=== PATIENT | male | born 1955 | race Caucasian/White ===

== ENCOUNTER 2017-03-17 17:36 | Emergency (ER) | payer OTHER ==
[~2017-03-17] VITALS: Ht 162.6 cm; Wt 68.5 kg
[~2017-03-17 17:36] MED LIST: FERR325T51 PO; FLUT50SP14 NAE; LORA10TA57 PO; NXM/40 PO; POLY335019 PO; SALI0.6510 NAE
[2017-03-17 17:44] VITALS: TEMP 37; Ht 162.6 cm; Wt 68.5 kg
--- NOTE | 2017-03-17 18:13 | EMERGENCY ROOM VISIT NOTE ---
History Report prepared by Seun: Terri Lebron Under the Supervision of: Dr. Charles Bryan M.D. First contact with patient: 17:57 Chief Complaint: LACERATION/CUT (SUT/DERMABOND) Stated Complaint: FALL/ HEAD BRUISE, LF FOOT LAC History of Present Illness The patient is a 61 year old male who presents to the Emergency Room with complaints of an episode of a fall beginning just PATIENT SERVICES COORDINATOR. The patient states that he has a history of Spina bifida and has no sensation below his knees. He reports that he tripped over a step today and landed on the back of his head. He notes that he lost consciousness for 1-2 seconds after the fall. The patient complains of a headache and left foot laceration from the fall. He denies any changes in vision, neck pain, chest pain, shortness of breath, and abdominal pain. He reports that he is not on any blood thinners. He notes that he has a history of broken bones in his legs. Source of History: patient Onset: just PATIENT SERVICES COORDINATOR Position: other (global) Quality: other (fall) Timing: other (episode) Associated Symptoms: + LOC, + headache, No neck pain, No chest pain, No SOB , No abdominal pain Note: Pt complains of left foot laceration. He denies any changes in vision. Review of Systems See HPI for pertinent positives & negatives. A total of 10 systems reviewed and were otherwise negative. Past Medical & Surgical Medical Problems: (1) ENCOUNT FOR LONG-TERM(CURRENT) USE OF ANTIBIOTICS(AFTERCARE) (2) ESOPHAGEAL REFLUX (3) HYPERTENSION NOS (4) INTESTINAL INFECTION DUE TO CLOSTRIDIUM DIFFICILE (5) MENIERE'S DISEASE, UNSPECIFIED (6) NEUROGENIC BLADDER, NOT OTHERWISE SPECIFIED (7) OSTEOMYELIT NOS-OTH SITE (8) PARAPLEGIA NOS (9) PERSONAL HISTORY, URINARY (TRACT) INFECTION (10) PRESSURE ULCER, BUTTOCK (11) SHORTNESS OF BREATH (12) SPINA BIFIDA-LUMBAR Old medical records were reviewed. Nurse's notes were reviewed and I agree with. Family History No pertinent family history stated. Social History Smoking Status: Former Smoker Marital Status: single Occupation Status: disabled Current/Historical Medications Scheduled Esomeprazole Magnesium (Nexium), 40 MG PO HS Ferrous Sulfate (Ferrous Sulfate), 325 MG PO HS Scheduled PRN Fluticasone Propionate (Nasal) (Flonase Allergy Relief), 1 SPRAY SPENCER DAILY PRN for ALLERGIC REACTION Loratadine & Pseudoephedrine (Claritin-D 24 Hour), 1 TAB PO QAM PRN for ALLERGIES Polyethylene Glycol 3350 (Miralax), 17 GM PO DAILY PRN for Constipation Saline ([place] Nasal [place]), 2 SPRAYS SPENCER DAILY PRN for ALLERGIES Allergies Coded Allergies: Adhesives (Verified Allergy, Unknown, ADHESIVE TAPERIPS SKIN APART, 03/17/17 ) Clindamycin (Verified Allergy, Unknown, RASH, 03/17/17) Iodine (Verified Allergy, Unknown, A TEEN-SKIN CONTACT BURNED THE SKIN- FELT LIKE ON FIRE, 03/17/17) Penicillins (Verified Allergy, Unknown, HIVES-ITCHING,HAS TOLERATED ANCEF IN PAST, 03/17/17) Pineapple (Verified Allergy, Unknown, "TONGUE WALKER AND CRACKS", 03/17/17) Aspirin (Verified Adverse Reaction, Unknown, GI SENSITIVITY, 03/17/17) Iodinated Contrast Media (Verified Adverse Reaction, Unknown, NAUSEA, ) Physical Exam Vital Signs Date Time Temp Pulse Resp B/P (MAP) Pulse Ox O2 Delivery O2 Flow Rate FiO2 03/17/17 21:45 76 20 117/75 97 03/17/17 21:33 76 20 117/75 97 Room Air 03/17/17 19:41 85 18 112/91 97 Room Air 03/17/17 17:44 37.0 84 20 129/81 99 Room Air Physical Exam General: Well developed well nourished non-ill appearing older male in no acute distress, breathing comfortably on room air. Normal speech. Patient has baseline spina bifida HEENT: Minimal tenderness to posterior scalp with no laceration. Pupils are equal round and reactive to light. Extraocular movements are intact. Oropharynx is pink with moist mucous membranes. No swelling of the mouth lips or tongue. Neck: Supple with a midline trachea. No meningeal signs or stiffness, no JVD or bruits. No Stridor. Chest: Clear to auscultation bilaterally. No wheezes or rhonchi. No increased work of breathing. Heart: regular rate and rhythm. Abdomen: Soft nontender, nondistended without rebound guarding or rigidity. Extremities: Lower extremities baseline paraplegia, 6cm laceration on the left medial foot, no active bleeding, full range of motion of joints in lower extremities. Spine/Back. Non tender to palpation. No CVA tenderness Skin: Good turgor without rashes. Neurologic exam: Cranial nerves two through 12 are intact. Motor and sensation are intact and symmetrical throughout. Medical Decision & Procedures ER Provider Diagnostic Interpretation: Radiology results as stated below per my review and radiologist interpretation: LEFT TIBIA AND FIBULA 2 VIEWS FINDINGS: AP and crosstable lateral views of the left tibia and fibula are obtained. No prior studies are available for comparison at the time of dictation. The Skeletal structures are osteopenic. There is no radiographic evidence of left tibial or fibular fracture. The knee and ankle joints are grossly maintained. There is chronic appearing discontinuity of the distal femur. A soft tissue bulge is noted in the lateral upper calf. IMPRESSION: 1. Generalized osteopenia with no radiographic evidence of left tibial or fibular fracture. 2. There is chronic discontinuity of the distal femoral metaphysis. 3. A soft tissue bulge is noted laterally in the upper calf. Clinical correlation will be required. Electronically signed by: Terrance Dugan M.D. 03/17/2017 7:45 PM Dictated Date/Time: 03/17/2017 7:[address] SCAN OF THE BRAIN WITHOUT IV CONTRAST FINDINGS: Brain parenchyma: There are age-related involutional changes noting minimal subcortical and periventricular microangiopathic change. There is central resident peripheral volume loss. There is no hemorrhage, mass effect, or evidence of acute territorial ischemia by CT criteria. Razo-white matter is preserved. No extra-axial fluid collection is seen. Ventricles, sulci, cisterns: Ventriculomegaly is similar to the [address] The lateral ventricles and third ventricle are dilated up proportion to the cortical sulci. The fourth ventricle is normal in caliber. Intracranial vasculature: Intracranial vessels at the skull base are normal as visualized. Calvarium: There is no depressed femoral fracture. Sinuses and mastoids: The visualized paranasal sinuses are clear. The mastoid air cells are well pneumatized. Orbits: The bony orbits are grossly intact. IMPRESSION: 1. There is no hemorrhage, mass effect, or evidence of acute territorial ischemia by CT criteria. 2. Ventriculomegaly is unchanged dating back to 2009. Correlation the patient's medical history will be required. Electronically signed by: Terrance Dugan M.D. 03/17/2017 7:14 PM Dictated Date/Time: 03/17/2017 7:10 PM LEFT FOOT 2 VIEWS FINDINGS: AP and lateral views of the left foot are obtained. No prior studies are available for comparison at the time of dictation. The skeletal structures are osteopenic. There is no radiographic evidence of acute fracture. Advanced arthritic change and chronic appearing deformity is present throughout the foot. Overlying soft tissue edema is observed. Soft tissue edema is noted in the imaged left lower extremity. IMPRESSION: 1. Soft tissue swelling with no radiographic evidence of acute fracture in the left foot. 2. Osteopenia with advanced arthritic change and chronic appearing deformity as above. Electronically signed by: Terrance Dugan M.D. 03/17/2017 7:49 PM Dictated Date/Time: 03/17/2017 7:48 PM LEFT FEMUR 2 VIEWS FINDINGS: AP and lateral views of the left femur are obtained. No prior studies are available for comparison at the time of dictation. The Skeletal structures are osteopenic. There is no radiographic evidence of acute left femoral fracture. There is chronic discontinuity of the distal femoral metaphysis. Advanced arthritic change is seen in the left hip and there is chronic deformity of the left femoral head and bony pelvis. Radiodensities project posterior to the left hip and are of indeterminant etiology. Mild soft tissue edema is noted in the thigh. IMPRESSION: 1. Osteopenia and chronic deformity of the left femur as above. No acute fracture is identified. 2. Soft tissue edema is suggested in the left thigh. Electronically signed by: Terrance Dugan M.D. 03/17/2017 7:47 PM Dictated Date/Time: 03/17/2017 7:45 PM Medications Administered Medications (Trade) Dose Ordered Sig/Miladys Route Start Time Stop Time Status Last Admin Dose Admin Diphtheria/ Pertussis/Tetanus Vacc (Adacel Inj) 0.5 ml ONCE ONCE IM. 03/17/17 21:30 03/17/17 21:31 DC 03/17/17 21:31 0.5 ML Procedure Location: left foot Total length: 6cm Complexity: Simple Verbal consent was obtained after the risks and benefits were explained, including but not limited to bleeding, scarring, infection, pain, and bone/joint /nerve damage. At this time, the risks of the procedure are less than the risks of NOT performing the procedure. A time out was taken and the correct patient and site identified. The skin was prepped with betadine. The target area was anesthetized with 0 ml of 1% lidocaine without epinephrine, he has no feeling in his leg. Copious irrigation was performed using normal saline. The skin was re-prepped with betadine and a sterile field set. The wound was explored for foreign bodies and none found. Examination revealed no injury to deep structures such as tendons, bone, or significant blood vessels. Debridement was not performed. The wound edges were approximated using 7, 4-0 simple interrupted nylon sutures. Hemostasis and excellent approximation was achieved. Antibacterial ointment and a sterile dressing applied. Detailed wound care instructions and signs and symptoms of infection reviewed with the patient. No complications and the patient tolerated the procedure well. ED Course 1756: Past medical records reviewed. The patient was evaluated in room A10, and a complete history and physical examination were performed. 1814: Lidocaine HCl 20ml INFIL. 1899: The patient is at x-ray. His nephew is looking into his tetanus status. 2103: I performed a laceration prepare. See procedure note. 2129: Adacel Inj 0.5ml IM. 2133: Upon reevaluation, the patient is doing well. I discussed the results and treatment plan with the patient. He verbalized agreement of the treatment plan. The patient was discharged home. Medical Decision Differential diagnosis includes laceration, head injury, orthopedic injury. Medication Reconciliation: I attest that I have personally reviewed the patient' s current medication list. Blood pressure Screening: Patient was found to have normal blood pressure on screening and does not require follow-up. He was placed in room A 10. He suffered mechanical fall and he hit his head and cut his left foot . He has a base line normal neurologic exam for him he does have paraplegia of his legs were related to spina bifida. I did order CAT scan of his head. His lower extremity exam is difficult because he has no feeling and in light of this, I did an x-ray of his left leg in its entirety. He has a laceration as well. The laceration was repaired as outlined above. His tetanus booster was updated with Adacel IM. X-rays of the leg do not reveal any fractures acutely. CAT scan his has unremarkable. The patient will be discharged home bacitracin sterile dressing applied. He should return if any new problems or concerns, problems with the wound such as redness, pus, fever, drainage and follow-up with his regular doctor for recheck. He should return here in 10 days for suture removal sooner if any problems. The patient' s brother who is at the bedside were happy with the plan and was discharged to home. Impression Primary Impression: Closed head injury Additional Impression: Laceration of left foot Scribe Attestation The scribe's documentation has been prepared under my direction and personally reviewed by me in its entirety. I confirm that the note above accurately reflects all work, treatment, procedures, and medical decision making performed by me. Departure Information Dispostion Home / Self-Care Referrals Kelton Baptiste M.D. (PCP) Forms HOME CARE DOCUMENTATION FORM, IMPORTANT VISIT INFORMATION Patient Instructions My [facility] Additional Instructions Rest. Apply bacitracin sterile dressing to wound twice a day Return if: Redness, pus, fever, drainage, any new problems concerns Return in 10 days for suture removal, sooner if any problems Problem Qualifiers
[2017-03-17] MEDS ORDERED: FLUT0.15 NAE (18:15)
[2017-03-17] MEDS ORDERED: XYLOCAINE 1%/SOD BICARB 20 ML VIAL INFIL ONE (18:15)
[2017-03-17] MEDS ORDERED: FERR325T5 PO (18:15)
--- NOTE | 2017-03-17 19:15 | DIAGNOSTIC IMAGING REPORT ---
CT SCAN OF THE BRAIN WITHOUT IV CONTRAST CLINICAL HISTORY: Trauma. COMPARISON STUDY: CT scan of the paranasal sinuses dated 04/17/2010. TECHNIQUE: Unenhanced axial CT scan of the brain is performed from the vertex to the skull base. CT DOSE: 614.27 mGy.cm FINDINGS: Brain parenchyma: There are age-related involutional changes noting minimal subcortical and periventricular microangiopathic change. There is central resident peripheral volume loss. There is no hemorrhage, mass effect, or evidence of acute territorial ischemia by CT criteria. Razo-white matter is preserved. No extra-axial fluid collection is seen. Ventricles, sulci, cisterns: Ventriculomegaly is similar to the [address] The lateral ventricles and third ventricle are dilated up proportion to the cortical sulci. The fourth ventricle is normal in caliber. Intracranial vasculature: Intracranial vessels at the skull base are normal as visualized. Calvarium: There is no depressed femoral fracture. Sinuses and mastoids: The visualized paranasal sinuses are clear. The mastoid air cells are well pneumatized. Orbits: The bony orbits are grossly intact. IMPRESSION: 1. There is no hemorrhage, mass effect, or evidence of acute territorial ischemia by CT criteria. 2. Ventriculomegaly is unchanged dating back to 2009. Correlation the patient's medical history will be required. Electronically signed by: Terrance Dugan M.D. 03/17/2017 7:14 PM Dictated Date/Time: 03/17/2017 7:10 PM
--- NOTE | 2017-03-17 19:46 | DIAGNOSTIC IMAGING REPORT ---
LEFT TIBIA AND FIBULA 2 VIEWS CLINICAL HISTORY: Fall. FINDINGS: AP and crosstable lateral views of the left tibia and fibula are obtained. No prior studies are available for comparison at the time of dictation. The Skeletal structures are osteopenic. There is no radiographic evidence of left tibial or fibular fracture. The knee and ankle joints are grossly maintained. There is chronic appearing discontinuity of the distal femur. A soft tissue bulge is noted in the lateral upper calf. IMPRESSION: 1. Generalized osteopenia with no radiographic evidence of left tibial or fibular fracture. 2. There is chronic discontinuity of the distal femoral metaphysis. 3. A soft tissue bulge is noted laterally in the upper calf. Clinical correlation will be required. Electronically signed by: Terrance Dugan M.D. 03/17/2017 7:45 PM Dictated Date/Time: 03/17/2017 7:43 PM
--- NOTE | 2017-03-17 19:49 | DIAGNOSTIC IMAGING REPORT ---
LEFT FEMUR 2 VIEWS CLINICAL HISTORY: Fall. FINDINGS: AP and lateral views of the left femur are obtained. No prior studies are available for comparison at the time of dictation. The Skeletal structures are osteopenic. There is no radiographic evidence of acute left femoral fracture. There is chronic discontinuity of the distal femoral metaphysis. Advanced arthritic change is seen in the left hip and there is chronic deformity of the left femoral head and bony pelvis. Radiodensities project posterior to the left hip and are of indeterminant etiology. Mild soft tissue edema is noted in the thigh. IMPRESSION: 1. Osteopenia and chronic deformity of the left femur as above. No acute fracture is identified. 2. Soft tissue edema is suggested in the left thigh. Electronically signed by: Terrance Dugan M.D. 03/17/2017 7:47 PM Dictated Date/Time: 03/17/2017 7:45 PM
--- NOTE | 2017-03-17 19:51 | DIAGNOSTIC IMAGING REPORT ---
LEFT FOOT 2 VIEWS CLINICAL HISTORY: Fall with left leg pain. FINDINGS: AP and lateral views of the left foot are obtained. No prior studies are available for comparison at the time of dictation. The skeletal structures are osteopenic. There is no radiographic evidence of acute fracture. Advanced arthritic change and chronic appearing deformity is present throughout the foot. Overlying soft tissue edema is observed. Soft tissue edema is noted in the imaged left lower extremity. IMPRESSION: 1. Soft tissue swelling with no radiographic evidence of acute fracture in the left foot. 2. Osteopenia with advanced arthritic change and chronic appearing deformity as above. Electronically signed by: Terrance Dugan M.D. 03/17/2017 7:49 PM Dictated Date/Time: 03/17/2017 7:48 PM
[2017-03-17] MEDS ORDERED: DIPHTHERIA/TETANUS/PERTUSSIS 0.5 ML SYR/VIAL IM. ONE (21:30)
[2017-03-17 21:45] VITALS: BP 117/75; PULSE 76; O2SAT 97
== END 2017-03-17 21:46 | disposition home or self-care (01) ==
LOC: EDBD 17:36 → C.EDA 17:39
DX: S06.9X1A Unspecified intracranial injury with loss of consciousness of 30 minutes or less, initial encounter (principal); S91.312A Laceration without foreign body, left foot, initial encounter; W01.0XXA Fall on same level from slipping, tripping and stumbling without subsequent striking against object, initial encounter; Q05.7 Lumbar spina bifida without hydrocephalus; G82.20 Paraplegia, unspecified; K21.9 Gastro-esophageal reflux disease without esophagitis; I10 Essential (primary) hypertension; H81.09 Meniere's disease, unspecified ear; M86.9 Osteomyelitis, unspecified; N31.9 Neuromuscular dysfunction of bladder, unspecified; Z87.891 Personal history of nicotine dependence; Z23 Encounter for immunization

== ENCOUNTER 2017-03-27 11:42 | Emergency (ER) | payer OTHER ==
[~2017-03-27] VITALS: Ht 162.6 cm; Wt 70.0 kg
[~2017-03-27 11:42] MED LIST changes: +FERR325T5 PO; -FERR325T51 PO; +FLUT0.15 NAE; -FLUT50SP14 NAE
[2017-03-27 11:46] VITALS: Ht 162.6 cm; Wt 70.0 kg
[2017-03-27 12:07] VITALS: BP 135/86; PULSE 86; TEMP 36.8; O2SAT 96
--- NOTE | 2017-03-27 12:09 | EMERGENCY ROOM VISIT NOTE ---
History First contact with patient: 11:49 Chief Complaint: SUTURE/STAPLE REMOVAL Stated Complaint: REMOVAL OF STITCHES Nursing Triage Summary: Pt here for suture removal to left foot. States he was having some bleeding afterwards, but home nurses have been caring for them. History of Present Illness The patient is a 61 year old male who presents to the Emergency Room for evaluation and possible removal of sutures from a left foot wound that was repaired in our department 10 days ago. The patient denies any wound complications. The patient has no sensation to the lower extremities, therefore denies any pain. Review of Systems 6 system review was performed and was negative except for pertinent positives and negatives as indicated in history of present illness Past Medical/Surgical History Medical Problems: (1) ENCOUNT FOR LONG-TERM(CURRENT) USE OF ANTIBIOTICS(AFTERCARE) (2) ESOPHAGEAL REFLUX (3) HYPERTENSION NOS (4) INTESTINAL INFECTION DUE TO CLOSTRIDIUM DIFFICILE (5) MENIERE'S DISEASE, UNSPECIFIED (6) NEUROGENIC BLADDER, NOT OTHERWISE SPECIFIED (7) OSTEOMYELIT NOS-OTH SITE (8) PARAPLEGIA NOS (9) PERSONAL HISTORY, URINARY (TRACT) INFECTION (10) PRESSURE ULCER, BUTTOCK (11) SHORTNESS OF BREATH (12) SPINA BIFIDA-LUMBAR Social History Smoking Status: Never Smoker Alcohol Use: none Marital Status: single Occupation Status: disabled Physical Exam Vital Signs Date Time Temp Pulse Resp B/P (MAP) Pulse Ox O2 Delivery O2 Flow Rate FiO2 03/27/17 11:46 36.8 86 18 135/86 96 Room Air Physical Exam MUSCULOSKELETAL: Examination of the left medial foot region shows a healing incision with all sutures intact. Upon close examination, the laceration between the sutures was very easily . There is a film of bacitracin dressing on the foot. Otherwise there is no wound erythema, fluctuance, induration or drainage. There is one very small area of bleeding with a suture present, and no surrounding soft tissue diastases. This one suture was removed , and the remaining were left untouched. A dry gauze dressing was applied. Medical Decision & Procedures ED Course Patient history and physical exam were performed. Wound evaluation shows that the wound needs some additional time to heal because of tissue maceration. The patient was instructed to avoid any further antibiotic ointment application. He was instructed to keep the wound covered with a dry dressing, removing the dressing as needed for any developing maceration. Return to the emergency department in one week for suture removal, sooner with any developing redness, swelling or drainage. Medical Decision Medication Reconcilliation Current Medication List: was personally reviewed by me Blood Pressure Screening Patient's blood pressure: Normal blood pressure Impression Primary Impression: Laceration of left foot Departure Information Dispostion Home / Self-Care Forms HOME CARE DOCUMENTATION FORM, IMPORTANT VISIT INFORMATION Patient Instructions My [facility] Additional Instructions Do not apply any antibiotic ointments to the wound at this point. Keep dressing dry and wound covered. If the wound starts to get a "pruny appearance", remove dressing for a while to let the tissue dry. Return in 7 days for suture removal, sooner for any developing redness, swelling or drainage. Problem Qualifiers Primary Impression: Laceration of left foot Encounter type: subsequent encounter Qualified Codes: S91.312D - Laceration without foreign body, left foot, subsequent encounter
== END 2017-03-27 12:08 | disposition home or self-care (01) ==
LOC: C.EDB 11:45 → C.EDD 12:08
DX: S91.312D Laceration without foreign body, left foot, subsequent encounter (principal); X58.XXXD Exposure to other specified factors, subsequent encounter; K21.9 Gastro-esophageal reflux disease without esophagitis; I10 Essential (primary) hypertension; G82.20 Paraplegia, unspecified; Z87.440 Personal history of urinary (tract) infections; Q05.7 Lumbar spina bifida without hydrocephalus

== ENCOUNTER 2017-04-03 10:00 | Emergency (ER) | payer OTHER ==
[~2017-04-03] VITALS: Ht 162.6 cm; Wt 72.0 kg
[2017-04-03 10:04] VITALS: BP 148/78; PULSE 86; TEMP 36.8; Ht 162.6 cm; Wt 72.0 kg
--- NOTE | 2017-04-03 10:41 | EMERGENCY ROOM VISIT NOTE ---
ED Visit Note First contact with patient: 10:20 CHIEF COMPLAINT: Suture removal This patient returns to the ED today for removal of sutures that were placed 17 days ago. There has been no swelling, redness, or drainage from the wound. The patient feels like the laceration is healing well. The patient was seen here 1 week ago for suture removal, however, it was felt at that time that the wound was not closed as it should be. REVIEW OF SYSTEMS: A complete 6 point review of systems was reviewed with the patient with pertinent positives and negatives as per history of present illness. All else were negative. PMH: The patient is in a wheelchair chronically as a paraplegic. He does not have sensation in his bilateral lower extremities. Please see previous documentation for other significant PMH, Medications, Allergies SOCIAL HISTORY: Patient lives locally. He denies drug, alcohol, tobacco use. PHYSICAL EXAM: Vital Signs: Reviewed Nurse's notes. There is a sutured wound on the left with no signs of infection. There is no erythema, swelling, or tenderness. EMERGENCY DEPARTMENT COURSE: The 5 remaining sutures were removed without any difficulty and there was no separation of the wound edges. DIAGNOSIS: Healing laceration and suture removal DISCHARGE INSTRUCTIONS AND TREATMENT: Proper wound care is essential for adequate wound healing and infection prevention. You can shower and clean the wound with soap and water. Do not scour over the wound, pat dry with a towel. Do not submerse the wound (i.e. bathe or dish wash) until the wound has fully healed. You can use a thin layer of antibiotic ointment with a dressing over the wound for the next 3-4 days. After this time you may leave the wound dry and open to the air. Please return to emergency department for worsening redness, pus, drainage, fever, body aches, chills, or other concerning symptoms. Please follow-up with your PCP in 2-3 days for further evaluation and management of the wound. Please have your home care nurse continue to bandage the wound until it has healed. 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 (7) OSTEOMYELIT NOS-OTH SITE Status: Resolved (8) PARAPLEGIA NOS Status: Chronic (9) PERSONAL HISTORY, URINARY (TRACT) INFECTION Status: Chronic (10) SHORTNESS OF BREATH Status: Chronic (11) SPINA BIFIDA-LUMBAR Status: Chronic Current/Historical Medications Scheduled Esomeprazole Magnesium (Nexium), 40 MG PO HS Ferrous Sulfate (Ferrous Sulfate), 325 MG PO HS Scheduled PRN Fluticasone Propionate (Nasal) (Flonase Allergy Relief), 1 SPRAY SPENCER DAILY PRN for ALLERGIC REACTION Loratadine & Pseudoephedrine (Claritin-D 24 Hour), 1 TAB PO QAM PRN for ALLERGIES Polyethylene Glycol 3350 (Miralax), 17 GM PO DAILY PRN for Constipation Saline ([place] Nasal Carmi), 2 SPRAYS SPENCER DAILY PRN for ALLERGIES Allergies Coded Allergies: Adhesives (Verified Allergy, Unknown, ADHESIVE TAPERIPS SKIN APART, ) Clindamycin (Verified Allergy, Unknown, RASH, 04/03/17) Iodine (Verified Allergy, Unknown, A TEEN-SKIN CONTACT BURNED THE SKIN- FELT LIKE ON FIRE, 04/03/17) Penicillins (Verified Allergy, Unknown, HIVES-ITCHING,HAS TOLERATED ANCEF IN PAST, 04/03/17) Pineapple (Verified Allergy, Unknown, "TONGUE WALEKR AND CRACKS", 04/03/17) Aspirin (Verified Adverse Reaction, Unknown, GI SENSITIVITY, 04/03/17) Iodinated Contrast Media (Verified Adverse Reaction, Unknown, NAUSEA, 04/03) Vital Signs Date Time Temp Pulse Resp B/P (MAP) Pulse Ox O2 Delivery O2 Flow Rate FiO2 04/03/17 10:40 04/03/17 10:04 36.8 86 18 148/78 99 Room Air Departure Information Impression Primary Impression: Encounter for removal of sutures Additional Impression: Foot laceration Dispostion Home / Self-Care Condition GOOD Referrals Kelton Baptiste M.D. (PCP) Patient Instructions My [facility], Wound Care - [facility] Additional Instructions Proper wound care is essential for adequate wound healing and infection prevention. You can shower and clean the wound with soap and water. Do not scour over the wound, pat dry with a towel. Do not submerse the wound (i.e. bathe or dish wash) until the wound has fully healed. You can use a thin layer of antibiotic ointment with a dressing over the wound for the next 3-4 days. After this time you may leave the wound dry and open to the air. Please return to emergency department for worsening redness, pus, drainage, fever, body aches, chills, or other concerning symptoms. Please follow-up with your PCP in 2-3 days for further evaluation and management of the wound. Please have your home care nurse continue to bandage the wound until it has healed. Problem Qualifiers Additional Impression: Foot laceration Encounter type: initial encounter Laterality: left Qualified Codes: S91.312A - Laceration without foreign body, left foot, initial encounter
== END 2017-04-03 11:11 | disposition home or self-care (01) ==
LOC: C.EDB 10:02 → C.EDA 11:11
DX: S91.312D Laceration without foreign body, left foot, subsequent encounter (principal); X58.XXXD Exposure to other specified factors, subsequent encounter; G82.20 Paraplegia, unspecified; K21.9 Gastro-esophageal reflux disease without esophagitis; I10 Essential (primary) hypertension; H81.09 Meniere's disease, unspecified ear; N31.9 Neuromuscular dysfunction of bladder, unspecified; Z87.440 Personal history of urinary (tract) infections; Q05.9 Spina bifida, unspecified; Z79.899 Other long term (current) drug therapy

== ENCOUNTER 2017-10-21 11:29 | Emergency (ER) | payer OTHER ==
[~2017-10-21] VITALS: Ht 162.6 cm; Wt 70.5 kg
[~2017-10-21 11:29] MED LIST changes: +LORA-749 PO; -LORA10TA57 PO
[2017-10-21 11:32] VITALS: Ht 162.6 cm; Wt 70.5 kg
[2017-10-21] MEDS ORDERED: SODIUM CHLORIDE 0.9% 1000ML 1,000 ML IV STA (12:03)
[2017-10-21] MEDS ORDERED: VANCOMYCIN INJ 2,000 MG in SODIUM CHLORIDE 0.9% 250ML 250 ML IV STA (12:03)
[2017-10-21] MEDS ORDERED: VANCOMYCIN CONSULT ACTIVE PRN (12:15)
[2017-10-21 12:23] LABS: BASO % 0.1 %; BASO ABS # 0.01 K/uL (0-0.2); EOS % 0.3 %; EOS ABS # 0.05 K/uL (0-0.5); HEMATOCRIT 43.4 % (42-52); HEMOGLOBIN 14.8 g/dL (14.0-18.0); IG# 0.03 K/uL (0.00-0.02); LYMPH % 2.3 %; LYMPH ABS # 0.34 K/uL (1.2-3.4); MEAN CORPUSCULAR HGB CONC 34.1 g/dl (32-36); MEAN PLATELET VOLUME 8.5 fL (7.4-10.4); MONO % 4.1 %; MONO ABS # 0.61 K/uL (0.11-0.59); NEUT ABS # 13.84 K/uL (1.4-6.5); PLATELET COUNT 256 K/uL (130-400); RED CELL DISTRIBUTION WIDTH CV 14.7 % (11.5-14.5); RED CELL DISTRIBUTION WIDTH SD 43.9 fL (36.4-46.3); WHITE BLOOD COUNT 14.88 K/uL (4.8-10.8)
[2017-10-21] MEDS ORDERED: VANCOMYCIN INJ 2,000 MG in SODIUM CHLORIDE 0.9% 500ML 500 ML IV SCH (12:30)
--- NOTE | 2017-10-21 12:37 | DIAGNOSTIC IMAGING REPORT ---
CHEST ONE VIEW PORTABLE CLINICAL HISTORY: Fever. Sepsis. COMPARISON STUDY: Chest radiograph July 25, 2012. FINDINGS: Lung volumes are mildly diminished. No pneumothorax or pleural effusion is noted. There is no evidence for pulmonary edema. Cardiomediastinal silhouette is unremarkable. There is mild left lower lung opacity. IMPRESSION: Mild left lower lung opacity which could reflect an infectious process or atelectasis. Radiographic follow up is recommended. Electronically signed by: Hemanth Field M.D. 10/21/2017 12:36 PM Dictated Date/Time: 10/21/2017 12:34 PM
[2017-10-21 12:38] LABS: INR 0.9 (0.9-1.1); PTT PATIENT 27.2 SECONDS (21.0-31.0)
[2017-10-21 13:02] LABS: ALBUMIN 3.6 gm/dl (3.4-5.0); ALT/SGPT 16 U/L (12-78); AST/SGOT 11 U/L (15-37); BLOOD UREA NITROGEN 13 mg/dl (7-18); CALCIUM 9.7 mg/dl (8.5-10.1); CARBON DIOXIDE 24 mmol/L (21-32); CREATININE 0.88 mg/dl (0.60-1.40); GLUCOSE 112 mg/dl (70-99); LIPASE 136 U/L (73-393); SODIUM 135 mmol/L (136-145)
[2017-10-21 13:07] LABS: ALKALINE PHOSPHATASE 106 U/L (45-117); CKMB < 0.5 ng/ml (0.5-3.6); TOTAL PROTEIN 8.8 gm/dl (6.4-8.2)
--- NOTE | 2017-10-21 13:08 | DIAGNOSTIC IMAGING REPORT ---
PELVIS NO IV/ORAL CONT (CT) HISTORY: Evaluate Fever/Sepsis TECHNIQUE: Multiaxial CT images of the pelvis performed without the use of intravenous or oral contrast. COMPARISON STUDY: Abdomen and pelvis CT 06/12/2015. FINDINGS: Diffuse fatty atrophy of the muscles within the pelvis and hips. Postoperative changes seen within the lower lumbar spine. There is a left-sided ostomy with a small parastomal hernia. There is a 6 mm stone within the lower pole of the left kidney. The bladder is mildly distended and demonstrates mild wall thickening. This is similar to the prior study. Right lower gluteal decubitus ulcer. This is slightly improved compared the prior study. This measures approximate 4.8 x 4.7 cm. There is thickening within the posterior scrotal wall. There is chronic erosion of the right ischial tuberosity, unchanged. This likely represents a chronic osteomyelitis due to the decubitus ulcer. No loculated fluid collections to suggest abscess. Abnormal band of soft tissue extending from the skin surface to the right posterior rectal wall. This was also seen on the prior study. IMPRESSION: 1. Slight improvement in the right lower gluteal decubitus ulcer. The soft tissue thickening extends to the partially eroded right ischial tuberosity consistent with chronic osteomyelitis. This remains unchanged. 2. Soft tissue thickening extending from the right gluteal region to the rectal wall. This is also similar to the prior study may represent an old decubitus ulcer. 3. Diffuse muscular atrophy. 4. Additional findings as described above. Electronically signed by: Sridhar Mullins M.D. 10/21/2017 1:07 PM Dictated Date/Time: 10/21/2017 12:55 PM
[2017-10-21] MEDS ORDERED: LEVAQUIN 750MG / 150ML D5W IV STA (13:43)
--- NOTE | 2017-10-21 14:15 | EMERGENCY ROOM VISIT NOTE ---
History Report prepared by Seun: Hemanth Burton Under the Supervision of: Dr. Lexa Delgadillo D.O. First contact with patient: 11:58 Chief Complaint: WOUND INFECTION Stated Complaint: ILLNESS History of Present Illness The patient is a 62 year old male who presents to the Emergency Room with complaints of worsening redness/irritation around the site of a wound on his right buttock. The patient states that he has had a wound present in his buttock area for over two years. Recently, the healthcare nursing staff has noticed the redness around this side worsening. He is also current complaining of flu-like symptoms including a dry cough, sore throat and global achiness. The patient has not had any fevers. Source of History: patient Position: other (Right buttock) Quality: other (Wound redness) Timing: worsening Associated Symptoms: + sorethroat, + cough, No fevers Review of Systems See HPI for pertinent positives & negatives. A total of 10 systems reviewed and were otherwise negative. Past Medical & Surgical Medical Problems: (1) Decubital ulcer (2) ENCOUNT FOR LONG-TERM(CURRENT) USE OF ANTIBIOTICS(AFTERCARE) (3) ESOPHAGEAL REFLUX (4) HYPERTENSION NOS (5) INTESTINAL INFECTION DUE TO CLOSTRIDIUM DIFFICILE (6) MENIERE'S DISEASE, UNSPECIFIED (7) NEUROGENIC BLADDER, NOT OTHERWISE SPECIFIED (8) OSTEOMYELIT NOS-OTH SITE (9) PARAPLEGIA NOS (10) PERSONAL HISTORY, URINARY (TRACT) INFECTION (11) PRESSURE ULCER, BUTTOCK (12) Sepsis (13) SHORTNESS OF BREATH (14) SPINA BIFIDA-LUMBAR Family History Omitted secondary to age. Social History Smoking Status: Former Smoker Alcohol Use: none Marital Status: single Occupation Status: disabled Current/Historical Medications Scheduled PRN Fluticasone Propionate (Nasal) (Flonase Allergy Relief), 1 SPRAY SPENCER DAILY PRN for ALLERGIC REACTION Loratadine & Pseudoephedrine (Claritin-D 24 Hour), 1 TAB PO QAM PRN for ALLERGIES Allergies Coded Allergies: Adhesives (Verified Allergy, Unknown, ADHESIVE TAPERIPS SKIN APART, ) Clindamycin (Verified Allergy, Unknown, RASH, 10/21/17) Iodine (Verified Allergy, Unknown, A TEEN-SKIN CONTACT BURNED THE SKIN- FELT LIKE ON FIRE, 10/21/17) Penicillins (Verified Allergy, Unknown, HIVES-ITCHING,HAS TOLERATED ANCEF IN PAST, 10/21/17) Pineapple (Verified Allergy, Unknown, "TONGUE WALKER AND CRACKS", 10/21/17) Aspirin (Verified Adverse Reaction, Unknown, GI SENSITIVITY, 10/21/17) Iodinated Contrast Media (Verified Adverse Reaction, Unknown, NAUSEA, 10/21) Physical Exam Vital Signs Date Time Temp Pulse Resp B/P (MAP) Pulse Ox O2 Delivery O2 Flow Rate FiO2 10/21/17 14:22 118 20 98 Room Air 10/21/17 13:00 118 20 98 Room Air 10/21/17 11:32 39.5 122 20 140/80 98 Room Air Physical Exam CONSTITUTIONAL/VITAL SIGNS: Reviewed / noted above. GENERAL: Non-toxic in appearance. INTEGUMENTARY: Warm, dry, and [place]. HEAD: Normocephalic. EYES: without scleral icterus or trauma. ENT/OROPHARYNX: clear and moist. LYMPHADENOPATHY/NECK: Is supple without lymphadenopathy or meningismus. RESPIRATORY: Lungs clear and equal. CARDIOVASCULAR: Regular rate and rhythm. GI/ABDOMEN: Soft and nontender. No organomegaly or pulsatile mass. No rebound or guarding. Normal bowel sounds. EXTREMITIES: Warm and well perfused. There is a large deep ulcer to the right buttock area, with significant erythema to the entire right buttock. There is increased warmth around the erythematous region. There is no discharge from the wound. BACK: No CVA tenderness. NEUROLOGICAL: Intact without focal deficits. PSYCHIATRIC: normal affect. MUSCULOSKELETAL: Normally developed with good muscle tone. Medical Decision & Procedures ER Provider Diagnostic Interpretation: Radiology results as stated below per my review and radiologist interpretation: CHEST ONE VIEW PORTABLE CLINICAL HISTORY: Fever. Sepsis. COMPARISON STUDY: Chest radiograph July 25, 2012. FINDINGS: Lung volumes are mildly diminished. No pneumothorax or pleural effusion is noted. There is no evidence for pulmonary edema. Cardiomediastinal silhouette is unremarkable. There is mild left lower lung opacity. IMPRESSION: Mild left lower lung opacity which could reflect an infectious process or atelectasis. Radiographic follow up is recommended. Electronically signed by: Hemanth Field M.D. 10/21/2017 12:36 PM Dictated Date/Time: 10/21/2017 12:34 PM PELVIS NO IV/ORAL CONT (CT) HISTORY: Evaluate Fever/Sepsis TECHNIQUE: Multiaxial CT images of the pelvis performed without the use of intravenous or oral contrast. COMPARISON STUDY: Abdomen and pelvis CT 06/12/2015. FINDINGS: Diffuse fatty atrophy of the muscles within the pelvis and hips. Postoperative changes seen within the lower lumbar spine. There is a left-sided ostomy with a small parastomal hernia. There is a 6 mm stone within the lower pole of the left kidney. The bladder is mildly distended and demonstrates mild wall thickening. This is similar to the prior study. Right lower gluteal decubitus ulcer. This is slightly improved compared the prior study. This measures approximate 4.8 x 4.7 cm. There is thickening within the posterior scrotal wall. There is chronic erosion of the right ischial tuberosity, unchanged. This likely represents a chronic osteomyelitis due to the decubitus ulcer. No loculated fluid collections to suggest abscess. Abnormal band of soft tissue extending from the skin surface to the right posterior rectal wall. This was also seen on the prior study. IMPRESSION: 1. Slight improvement in the right lower gluteal decubitus ulcer. The soft tissue thickening extends to the partially eroded right ischial tuberosity consistent with chronic osteomyelitis. This remains unchanged. 2. Soft tissue thickening extending from the right gluteal region to the rectal wall. This is also similar to the prior study may represent an old decubitus ulcer. 3. Diffuse muscular atrophy. 4. Additional findings as described above. Electronically signed by: Sridhar Mullins M.D. 10/21/2017 1:07 PM Dictated Date/Time: 10/21/2017 12:55 PM Laboratory Results 10/21/17 11:45 Red Blood Count 5.29, Mean Corpuscular Volume 82.0, Mean Corpuscular Hemoglobin 28.0, Mean Corpuscular Hemoglobin Concent 34.1, Mean Platelet Volume 8.5, Neutrophils (%) (Auto) 93.0, Lymphocytes (%) (Auto) 2.3, Monocytes (%) (Auto) 4.1, Eosinophils (%) (Auto) 0.3, Basophils (%) (Auto) 0.1, Neutrophils # (Auto) 13.84, Lymphocytes # (Auto) 0.34, Monocytes # (Auto) 0.61, Eosinophils # (Auto) 0.05, Basophils # (Auto) 0.01 10/21/17 11:45 Test 10/21/17 11:45 10/21/17 12:15 10/21/17 13:30 White Blood Count 14.88 K/uL (4.8-10.8) Red Blood Count 5.29 M/uL (4.7-6.1) Hemoglobin 14.8 g/dL (14.0-18.0) Hematocrit 43.4 % (42-52) Mean Corpuscular Volume 82.0 fL (80-100) Mean Corpuscular Hemoglobin 28.0 pg (25-34) Mean Corpuscular Hemoglobin Concent 34.1 g/dl (32-36) Platelet Count 256 K/uL (130-400) Mean Platelet Volume 8.5 fL (7.4-10.4) Neutrophils (%) (Auto) 93.0 % Lymphocytes (%) (Auto) 2.3 % Monocytes (%) (Auto) 4.1 % Eosinophils (%) (Auto) 0.3 % Basophils (%) (Auto) 0.1 % Neutrophils # (Auto) 13.84 K/uL (1.4-6.5) Lymphocytes # (Auto) 0.34 K/uL (1.2-3.4) Monocytes # (Auto) 0.61 K/uL (0.11-0.59) Eosinophils # (Auto) 0.05 K/uL (0-0.5) Basophils # (Auto) 0.01 K/uL (0-0.2) RDW Standard Deviation 43.9 fL (36.4-46.3) RDW Coefficient of Variation 14.7 % (11.5-14.5) Immature Granulocyte % (Auto) 0.2 % Immature Granulocyte # (Auto) 0.03 K/uL (0.00-0.02) Prothrombin Time 9.9 SECONDS (9.0-12.0) Prothromb Time International Ratio 0.9 (0.9-1.1) Activated Partial Thromboplast Time 27.2 SECONDS (21.0-31.0) Partial Thromboplastin Ratio 1.0 Anion Gap 9.0 mmol/L (3-11) Est Creatinine Clear Calc Drug Dose 71.1 ml/min Estimated GFR () 105.2 Estimated GFR (Non- 90.8 BUN/Creatinine Ratio 14.8 (10-20) Calcium Level 9.7 mg/dl (8.5-10.1) Total Bilirubin 0.7 mg/dl (0.2-1) Direct Bilirubin 0.2 mg/dl (0-0.2) Aspartate Amino Transf (AST/SGOT) 11 U/L (15-37) Alanine Aminotransferase (ALT/SGPT) 16 U/L (12-78) Alkaline Phosphatase 106 U/L (45-117) Total Creatine Kinase 27 U/L (39-308) Creatine Kinase MB < 0.5 ng/ml (0.5-3.6) Creatine Kinase MB Ratio (0-3.0) Troponin I < 0.015 ng/ml (0-0.045) Total Protein 8.8 gm/dl (6.4-8.2) Albumin 3.6 gm/dl (3.4-5.0) Lipase 136 U/L (73-393) Lactic Acid Level 2.7 mmol/L (0.4-2.0) Laboratory results as stated above per my review. Medications Administered Medications (Trade) Dose Ordered Sig/Miladys Route Start Time Stop Time Status Last Admin Dose Admin Sodium Chloride 1,000 ml @ 999 mls/hr Q1H1M STAT IV 10/21/17 12:03 10/21/17 13:07 DC 10/21/17 13:38 999 MLS/HR Vancomycin HCl 2000 mg/Sodium Chloride 540 ml @ 200 mls/hr TODAY@1230 IV 10/21/17 12:30 10/21/17 15:11 10/21/17 13:38 200 MLS/HR ED Course 1158: Previous medical records were reviewed. The patient was evaluated in room C12B. A complete history and physical examination was performed. 1203: Ordered Sodium Chloride 1000 mL @ 999 mL/hr IV. 1230: Ordered Vancomycin HCl 540 mL @ 200 mL/hr IV. 1341: I discussed the case with Marian Heller. She will evaluate the patient for further treatment. Medical Decision Differential includes viral illness, influenza, streptococcal pharyngitis, meningitis, pneumonia, sinusitis, UTI, pyelonephritis, otitis media. This is a 62-year-old male who presents to the ED with a chief complaint of a fever. The patient reports a slight sore throat as well as a cough. The patient states that started yesterday. He feels a little achy. The patient has a home health nurse that does wound dressing changes. She came in today and noticed a cellulitis of the right buttock area. He has had a wound in the right buttock area for the past couple of years. He is currently not on antibiotics. Current temperature is 39.5. Heart rate is 122. His exam reveals gross erythema to the right buttock area with significant increase in warmth from that area. There is no obvious discharge noted from the wound to the right buttock area. The throat was minimally erythematous and the lungs were clear. A CT scan of the pelvis reveals chronic osteomyelitis and an old decubitus ulceration in the right buttock area that was noted on a previous CT scan. Chest x-ray reveals a left lower lobe opacity. This could represent pneumonia. White blood cell count was 14.8. Complete metabolic panel was unremarkable, troponin and lipase are negative. The patient was started on IV vancomycin as well as IV Levaquin. He was given a liter of normal saline IV. Lactate level was slightly elevated. I spoke with hospitalist, who will see the patient for further inpatient evaluation and care. Consults Time Called: 1335 Consulting Physician: Marian Heller Returned Call: 1341 I discussed the case with Marian Heller. She will evaluate the patient for further treatment. Impression Primary Impression: Cellulitis of right buttock Scribe Attestation The scribe's documentation has been prepared under my direction and personally reviewed by me in its entirety. I confirm that the note above accurately reflects all work, treatment, procedures, and medical decision making performed by me. Departure Information Dispostion Being Evaluated By Hospitalist Referrals Kelton Baptiste M.D. (PCP) Patient Instructions My [facility]
[2017-10-21] MEDS ORDERED: SODIUM CHLORIDE 0.9% 1000ML 1,000 ML IV SCH (14:16)
[2017-10-21] MEDS ORDERED: ACETAMINOPHEN 325 MG TAB PO PRN (14:30)
[2017-10-21] MEDS ORDERED: ONDANSETRON INJ 2 MG/ML 2 ML VIAL IV PRN (14:30)
[2017-10-21] MEDS ORDERED: ENOXAPARIN 40 MG/0.4 ML SYR SC SCH (14:30)
[2017-10-21] MEDS ORDERED: CONSULT PHARMACY STA (14:35)
[2017-10-21 14:38] LABS: INFLUENZA B ANTIGEN Neg for Influ B (NEG)
--- NOTE | 2017-10-21 18:47 | Medical Consult ---
Consultation Date of Consultation: Oct 21, 2017. Attending Physician: Dr. Garrido Reason for Consultation: Evaluate for Admission History of Present Illness 62 year old male who presents to the ED by referral of his home health nurse for evaluation of possible infected decubitus ulcer. Patient has had a right gluteal fold decubitus ulcer for the past several years and has undergone many debridements and surgeries. Patient also follows with the [facility]. Patient reports he was on antibiotics about one month ago from the wound care center. He said he was in his usual state of health yesterday. This morning he woke up and felt chilled with body aches. He also had a cough. His home health nurse came today who noticed increased erythema around the decubitus ulcer. He was referred to the ED for further evaluation. Patient has a colostomy in place. He denies any changes in stool output. He denies abdominal pain, nausea, and vomiting. No chest pain or shortness of breath. He wears a [place] catheter and straight caths weekly. He denies any urinary symptoms. In the ED, patient is febrile at 39.5, tachycardic, WBC 14.8K, and lactic acid 2.7. BP is stable. He was given IVF, IV Vanco, and IV Levaquin. Past Medical/Surgical History Medical Problems: (1) Amputated toe of right foot Status: Chronic (2) Colostomy in place Status: Chronic (3) GERD (gastroesophageal reflux disease) Status: Chronic (4) SANJEEV (iron deficiency anemia) Status: Chronic (5) Neurogenic bladder Status: Chronic (6) Paraplegia Status: Chronic (7) Spina bifida Status: Chronic Surgical Problems: (1) H/O exploratory laparotomy Status: Chronic (2) History of incisional hernia repair Status: Chronic (3) Status post skin flap graft Status: Chronic Family History FH: prostate cancer BROTHER Social History Smoking Status: Former Smoker Alcohol Use: heavy Allergies Coded Allergies: Adhesives (Verified Allergy, Unknown, ADHESIVE TAPERIPS SKIN APART, ) Clindamycin (Verified Allergy, Unknown, RASH, 10/21/17) Iodine (Verified Allergy, Unknown, A TEEN-SKIN CONTACT BURNED THE SKIN- FELT LIKE ON FIRE, 10/21/17) Penicillins (Verified Allergy, Unknown, HIVES-ITCHING,HAS TOLERATED ANCEF IN PAST, 10/21/17) Pineapple (Verified Allergy, Unknown, "TONGUE WALKER AND CRACKS", 10/21/17) Aspirin (Verified Adverse Reaction, Unknown, GI SENSITIVITY, 10/21/17) Iodinated Contrast Media (Verified Adverse Reaction, Unknown, NAUSEA, 10/21) Home Medications Flonase Allergy Relief (Fluticasone Propionate (Nasal)) 50 Mcg/Act Spr 1 [place] SPENCER DAILY PRN Claritin-D 24 Hour (Loratadine & Pseudoephedrine) 1 Tab Tab 1 Tab PO QAM PRN Current Inpatient Medications Current Inpatient Medications Medications (Trade) Dose Ordered Sig/Miladys Route Start Time Stop Time Status Last Admin Dose Admin Sodium Chloride 1,000 ml @ 125 mls/hr Q8H IV 10/21/17 14:16 11/20/17 14:15 UNV Acetaminophen (Tylenol Tab) 650 mg Q4H PRN PO 10/21/17 14:30 11/20/17 14:29 10/21/17 15:23 650 MG Ondansetron HCl (Zofran Inj) 4 mg Q6H PRN IV 10/21/17 14:30 11/20/17 14:29 Review of Systems ROS per HPI, all other systems reviewed and negative Physical Exam Date Time Temp Pulse Resp B/P (MAP) Pulse Ox O2 Delivery O2 Flow Rate FiO2 10/21/17 18:09 99 18 114/61 96 Room Air 10/21/17 17:10 37.4 104 18 101/62 94 Room Air 10/21/17 16:20 101/61 10/21/17 16:09 38.6 127 18 91/58 97 Room Air 10/21/17 15:11 39.4 126 18 110/63 97 Room Air 10/21/17 14:22 118 20 98 Room Air 10/21/17 13:00 118 20 98 Room Air 10/21/17 11:32 39.5 122 20 140/80 98 Room Air General Appearance: WD/WN, no apparent distress Head: normocephalic, atraumatic Eyes: normal inspection, EOMI, sclerae normal ENT: hearing grossly normal, + pertinent finding (mucous membranes moist) Neck: supple, no JVD, trachea midline Respiratory/Chest: no respiratory distress, + decreased breath sounds Cardiovascular: regular rate, rhythm, no edema, normal peripheral pulses Abdomen/GI: normal bowel sounds, non tender, soft, no organomegaly, + pertinent finding (colostomy in place) Extremities/Musculoskelatal: + pertinent finding (BLLE shortened with club foot noted ) Neurologic/Psych: no motor/sensory deficits, alert, normal mood/affect, oriented x 3 Skin: + pertinent finding (large stage IV decubitus ulcer noted to right gluteal fold with surrounding erythema covering the right buttock and extending over to the right hip) Laboratory Results Last 24 Hours Test 10/21/17 11:45 10/21/17 12:15 10/21/17 13:30 White Blood Count 14.88 K/uL Red Blood Count 5.29 M/uL Hemoglobin 14.8 g/dL Hematocrit 43.4 % Mean Corpuscular Volume 82.0 fL Mean Corpuscular Hemoglobin 28.0 pg Mean Corpuscular Hemoglobin Concent 34.1 g/dl Platelet Count 256 K/uL Mean Platelet Volume 8.5 fL Neutrophils (%) (Auto) 93.0 % Lymphocytes (%) (Auto) 2.3 % Monocytes (%) (Auto) 4.1 % Eosinophils (%) (Auto) 0.3 % Basophils (%) (Auto) 0.1 % Neutrophils # (Auto) 13.84 K/uL Lymphocytes # (Auto) 0.34 K/uL Monocytes # (Auto) 0.61 K/uL Eosinophils # (Auto) 0.05 K/uL Basophils # (Auto) 0.01 K/uL RDW Standard Deviation 43.9 fL RDW Coefficient of Variation 14.7 % Immature Granulocyte % (Auto) 0.2 % Immature Granulocyte # (Auto) 0.03 K/uL Prothrombin Time 9.9 SECONDS Prothromb Time International Ratio 0.9 Activated Partial Thromboplast Time 27.2 SECONDS Partial Thromboplastin Ratio 1.0 Sodium Level 135 mmol/L Potassium Level 4.0 mmol/L Chloride Level 102 mmol/L Carbon Dioxide Level 24 mmol/L Anion Gap 9.0 mmol/L Blood Urea Nitrogen 13 mg/dl Creatinine 0.88 mg/dl Est Creatinine Clear Calc Drug Dose 71.1 ml/min Estimated GFR () 105.2 Estimated GFR (Non- 90.8 BUN/Creatinine Ratio 14.8 Random Glucose 112 mg/dl Calcium Level 9.7 mg/dl Total Bilirubin 0.7 mg/dl Direct Bilirubin 0.2 mg/dl Aspartate Amino Transf (AST/SGOT) 11 U/L Alanine Aminotransferase (ALT/SGPT) 16 U/L Alkaline Phosphatase 106 U/L Total Creatine Kinase 27 U/L Creatine Kinase MB < 0.5 ng/ml Creatine Kinase MB Ratio Troponin I < 0.015 ng/ml Total Protein 8.8 gm/dl Albumin 3.6 gm/dl Lipase 136 U/L Influenza Type A Antigen Neg for Influ A Influenza Type B Antigen Neg for Influ B Lactic Acid Level 2.7 mmol/L Assessment & Plan Patient seen and examined in the ED. Currently meets severe sepsis criteria with fever, tachycardia, leukocytosis, and lactic acidemia. BP is currently stable. Likely source is the right gluteal decubitus ulcer. Currently wound care surgeon coverage is not available at [facility]. Case was discussed with Shelia Zheng PA-C / Dr. Obrien with general surgery who did not feel comfortable seeing the patient given the severity of the wound. Case was discussed with Dr. Javier with plastic surgery at [facility] ( patient follows with Dr. Gandara with plastic surgery) who advised transfer to [facility] for evaluation by wound care. Case was also discussed with Dr. Ervin with the hospitalist service who accepted the patient for transfer. Patient received IV Vanco and Levaquin in the ED and should be continued on IVF while en route for transfer. ADDENDUM: I saw and examined the patient in room C12. He presents with worsening gluteal decubitus ulcer, which has been on ongoing issue. Has had home nursing evaluate it; to note he has spina bifida, club feet, uses wheelchair to get around. Has had multiple dbridements and surgeries; has also seen plastic surgery in [place]. Presented here with an elevated white count, tachycardic, lactic acidosis; clearly infected decubitus ulcer. Unfortunately, wound care physician not here in the hospital today. General surgery does not take care of stage 4 decubitus ulcers. Called plastic surgery in [place] and recommendation made to transfer patient to [place] with surgical/wound care support. Would continue Vancomycin and Levaquin. Continue IVFs due to sepsis. Transfer pending.
[2017-10-21 19:44] VITALS: BP 127/72; PULSE 99; TEMP 37.4; O2SAT 98
== END 2017-10-21 19:30 | disposition short-term general hospital (02) ==
LOC: EDBD 11:29 → C.EDC 11:30 → CANBEDREQ 15:43 → C.EDC 19:30
DX: L03.317 Cellulitis of buttock (principal); L89.314 Pressure ulcer of right buttock, stage 4; Z79.2 Long term (current) use of antibiotics; K21.9 Gastro-esophageal reflux disease without esophagitis; I10 Essential (primary) hypertension; H81.09 Meniere's disease, unspecified ear; N31.9 Neuromuscular dysfunction of bladder, unspecified; M86.9 Osteomyelitis, unspecified; G82.20 Paraplegia, unspecified; D50.9 Iron deficiency anemia, unspecified; Q05.7 Lumbar spina bifida without hydrocephalus; Z87.442 Personal history of urinary calculi; Z87.440 Personal history of urinary (tract) infections; Z87.891 Personal history of nicotine dependence; Z88.1 Allergy status to other antibiotic agents; Z91.041 Radiographic dye allergy status; Z88.0 Allergy status to penicillin; Z91.018 Allergy to other foods; Z88.6 Allergy status to analgesic agent; Z89.421 Acquired absence of other right toe(s); Z93.3 Colostomy status; Z80.42 Family history of malignant neoplasm of prostate

== ENCOUNTER → 2017-12-12 | Day surgery (SDC) | payer OTHER ==
[2017-12-03 11:18] VITALS: Ht 162.6 cm; Wt 70.5 kg
[~2017-12-12] VITALS: Ht 162.6 cm; Wt 70.5 kg
[~2017-12-12] MED LIST changes: -FERR325T5 PO; +LIDOCAINE HCL 2% 2 ML VIAL (20MG/ML) ONE; -NXM/40 PO; +OMEP40CA41 PO; +PROPOFOL IV EMULSION 10 MG/ML 20 ML VIAL IV ONE; -SALI0.6510 NAE; +SODIUM CHLORIDE 0.9% 500ML 500 ML IV ONE
--- NOTE | 2017-12-12 11:30 | Endo History and Physical ---
History & Physical Date of Service: Dec 12, 2017. Chief Complaint: DYSPHAGIA Referring Physician: DR PAIGE History of Present Illness 62 yo presenting for EGD for dysphagia Past Medical History Gastrointestinal Disorder, Reflux, Other Past Surgical History Hx Cardiac Surgery: No Hx Internal Defibrillator: No Hx Pacemaker: No Hx Abdominal Surgery: Yes (COLOSTOMY, HERNIA REPAIR X3) Hx of Implantable Prosthesis: No Hx Post-Op Nausea and Vomiting: No Hx Cancer Surgery: No Hx Thoracic Surgery: No Hx Orthopedic: Yes (RT FOOT (2ND, 3RD, 4TH) AMPUTATION, SPINAL CLOSURE ) Hx Urinary Tract Surgery: Yes (CIRCUMSICION, CYSTOSCOPY WITH STONE REMOVAL) Family History IBD Social History Smoking Status: Former Smoker Hx Substance Use: No Hx Alcohol Use: Yes (OCCASIONAL) Allergies Coded Allergies: Adhesives (Verified Allergy, Unknown, ADHESIVE TAPERIPS SKIN APART, 12/12/17 ) Clindamycin (Verified Allergy, Unknown, RASH, 12/12/17) Iodine (Verified Allergy, Unknown, A TEEN-SKIN CONTACT BURNED THE SKIN- FELT LIKE ON FIRE, 12/12/17) Penicillins (Verified Allergy, Unknown, HIVES-ITCHING,HAS TOLERATED ANCEF IN PAST, 12/12/17) Pineapple (Verified Allergy, Unknown, "TONGUE WALKER AND CRACKS", 12/12/17) Aspirin (Verified Adverse Reaction, Unknown, GI SENSITIVITY, 12/12/17) Iodinated Contrast Media (Verified Adverse Reaction, Unknown, NAUSEA, ) Current Medications Reported Home Medications Medications Dose Route/Sig Max Daily Dose Days Date Category Flonase Allergy Relief (Fluticasone Propionate (Nasal)) 50 Mcg/Act Spr 1 [place] SPENCER DAILY PRN 03/17/17 Reported Claritin-D 24 Hour (Loratadine & Pseudoephedrine) 1 Tab Tab 1 Tab PO QAM PRN 11/11/15 Reported Vital Signs Weight (Kilograms): 70.45 Height (Feet): 5 Height (Inches): 4 Date Time Temp Pulse Resp B/P (MAP) Pulse Ox O2 Delivery O2 Flow Rate FiO2 12/12/17 11:25 36.9 92 16 143/79 (100) 98 Room Air Physical Exam General Appearance: WD/WN, no apparent distress Respiratory/Chest: Respiratory effort: no dyspnea Auscultation: breath sounds normal, CTA except as noted, no wheezing Cardiovascular: Apical Impulse: not displaced Heart Auscultation: RRR, normal S1 Abdomen: Bowel Sounds: normal Inspection & Palpation: soft Assessment and Plan Plan for EGD for dysphagia
--- NOTE | 2017-12-12 12:42 | GI REPORT ---
Procedure Date: 12/12/2017 12:15 PM Procedure: Upper GI endoscopy Indications: Dysphagia Medicines: Monitored Anesthesia Care Complications: No immediate complications. Estimated blood loss: None. Estimated Blood Loss: Estimated blood loss: none. Procedure: Pre-Anesthesia Assessment: - Pre-Anesthesia Assessment: - Prior to the procedure, a History and Physical was performed, and patient medications, allergies and sensitivities were reviewed. The patient's tolerance of previous anesthesia was reviewed. Please see [facility] for complete details. - The risks and benefits of the procedure and the sedation options and risks were discussed with the patient. All questions were answered and informed consent was obtained. - Patient identification and proposed procedure were verified prior to the procedure by the physician and the nurse. The procedure was verified in the pre-procedure area in the procedure room. After obtaining informed consent, the endoscope was passed carefully and meticuously under direct vision and only advanced when the lumen was clearly identified, C02 insuflation was utilized throughout the entirity of the procedure. Throughout the procedure, the patient's blood pressure, pulse, and oxygen saturations were monitored continuously. After obtaining informed consent, the endoscope was passed under direct vision. Throughout the procedure, the patient's blood pressure, pulse, and oxygen saturations were monitored continuously. The Scope was introduced through the mouth, and advanced to the second part of duodenum. The upper GI endoscopy was accomplished without difficulty. The patient tolerated the procedure well. Findings: A severe Schatzki ring (acquired) was found at the gastroesophageal junction. Dilation was performed with carefully transversing the scope only. An uncomplicated and appropriate mucosal disruption was noted and carefully watched for several minutes to ensure no bleeding or complication was noted. A small hiatal hernia was present. The entire examined stomach was normal. The examined duodenum was normal. Impression: - Severe Schatzki ring. - Small hiatal hernia. - Normal stomach. - Normal examined duodenum. - No specimens collected. Recommendation: - Discharge patient to home (with escort). - Return to referring physician as previously scheduled. - Use Prilosec (omeprazole) 40 mg PO BID for 2 months. - Repeat upper endoscopy in 7-10 days for retreatment. Adan Rodriguez MD 12/12/2017 12:41:45 PM This report has been signed electronically. Note Initiated On: 12/12/2017 12:15 PM I attest to the content of the Intraoperative Record and orders documented therein, exceptions below
--- NOTE | 2017-12-12 12:54 | Anesthesiology Progress Note ---
Anesthesia Post Op Note Date & Time Dec 12, 2017 at 12:53 Vital Signs Pain Intensity: 0 Vital Signs Past 12 Hours Date Time Temp Pulse Resp B/P (MAP) Pulse Ox O2 Delivery O2 Flow Rate FiO2 12/12/17 12:52 90 20 138/85 (102) 99 Room Air 12/12/17 11:25 36.9 92 16 143/79 (100) 98 Room Air Notes Mental Status: alert / awake / arousable, participated in evaluation Pt Amnestic to Procedure: Yes Nausea / Vomiting: adequately controlled Pain: adequately controlled Airway Patency, RR, SpO2: stable & adequate BP & HR: stable & adequate Hydration State: stable & adequate Anesthetic Complications: no major complications apparent
--- NOTE | 2017-12-12 13:05 | Discharge Instructions ---
Endoscopy Patient Instructions Date / Procedure(s) Performed Dec 12, 2017. EGD Allergy Information Coded Allergies: Adhesives (Verified Allergy, Unknown, ADHESIVE TAPERIPS SKIN APART, 12/12/17 ) Clindamycin (Verified Allergy, Unknown, RASH, 12/12/17) Iodine (Verified Allergy, Unknown, A TEEN-SKIN CONTACT BURNED THE SKIN- FELT LIKE ON FIRE, 12/12/17) Penicillins (Verified Allergy, Unknown, HIVES-ITCHING,HAS TOLERATED ANCEF IN PAST, 12/12/17) Pineapple (Verified Allergy, Unknown, "TONGUE WALKER AND CRACKS", 12/12/17) Aspirin (Verified Adverse Reaction, Unknown, GI SENSITIVITY, 12/12/17) Iodinated Contrast Media (Verified Adverse Reaction, Unknown, NAUSEA, ) Discharge Date / Findings Dec 12, 2017. Findings: A severe Schatzki ring (acquired) was found at the gastroesophageal junction. Dilation was performed with carefully transversing the scope only. An uncomplicated and appropriate mucosal disruption was noted and carefully watched for several minutes to ensure no bleeding or complication was noted. A small hiatal hernia was present. The entire examined stomach was normal. The examined duodenum was normal. Impression: - Severe Schatzki ring. - Small hiatal hernia. - Normal stomach. - Normal examined duodenum. - No specimens collected. Recommendation: - Discharge patient to home (with escort). - Return to referring physician as previously scheduled. - Use Prilosec (omeprazole) 40 mg PO BID for 2 months. - Repeat upper endoscopy in 7-10 days for retreatment. - Soft diet consisting of foods that can be eaten with a spoon, only pureed meats, small bites, cooked vegetables no raw vegetables until repeat EGD. Provider Instructions Activity Restrictions - No exercising or heavy lifting for 24 hours. - Do not drink alcohol the day of the procedure. - Do not drive a car or operate machinery until the day after the procedure. - Do not make any important decisions or sign important papers in 24 hours after the procedure. Following Day: - Return to full activity which may include returning to work/school. Diet Start your diet with liquids and light foods (jello, soup, juice, toast). Then eat your usual diet if not nauseated. Treatment For Common After Affects For mild abdominal pain, bloating, or excessive gas: - Rest - Eat lightly - Lie on right side Follow-Up Information Follow-up with DR PAIGE as scheduled Anesthesia Information What You Should Know You have had a procedure that required some medicine to reduce anxiety and discomfort. This treatment is called moderate sedation. After receiving the treatment, you may be sleepy, but you will be able to breathe on your own. The effects of the treatment may last for several hours. Follow these instructions along with Activity/Diet recommendations noted above: * Do NOT do anything where dizziness or clumsiness would be dangerous. * Rest quietly at home today, then you can be up and about tomorrow. * Have a responsible person stay with you the rest of today. * You may have had an I.V. today. If so, you may take the dressing off later today. Recommendations Call your doctor if: * Trouble breathing * Continuous vomiting for more than 24 hours * Temperature above 101 degrees * Severe abdominal pain or bloating * Pain not relieved by pain medicine ordered * There is increased drainage or redness from any incision * A large amount of rectal bleeding greater than 2-3 tablespoons. (If you had a polyp/s removed or have hemorrhoids, a small amount of blood - from the rectum is to be expected.) * You have any unanswered questions or concerns. IN THE EVENT OF A SERIOUS EMERGENCY, GO TO THE NEAREST EMERGENCY ROOM Your discharge instructions were prepared by provider Adan Rodriguez. Patient Instructions Signature Page Vernon Sommer Patient (or Guardian) Signature/Date: I have read and understand the instructions given to me by my caregivers. Caregiver/RN/Doctor Signature/Date: The above-named patient and/or guardian has received patient instructions on this date. + Original Patient Signature Page (only) stays with chart. Please make copy for patient.
[2017-12-12 13:21] VITALS: BP 154/83; PULSE 82; O2SAT 98
== END | disposition home or self-care (01) ==
LOC: C.GI 11:07
PROVIDERS: ATTEND Internal Medicine
DX: R13.10 Dysphagia, unspecified (principal); K22.2 Esophageal obstruction; K44.9 Diaphragmatic hernia without obstruction or gangrene; Q05.9 Spina bifida, unspecified; Z86.718 Personal history of other venous thrombosis and embolism; Z87.891 Personal history of nicotine dependence; Z90.89 Acquired absence of other organs; Z89.421 Acquired absence of other right toe(s); Z98.890 Other specified postprocedural states; Z99.3 Dependence on wheelchair; Z88.1 Allergy status to other antibiotic agents; Z88.0 Allergy status to penicillin; Z88.6 Allergy status to analgesic agent; Z88.8 Allergy status to other drugs, medicaments and biological substances; Z91.018 Allergy to other foods

== ENCOUNTER → 2017-12-20 | Day surgery (SDC) | payer OTHER ==
[2017-12-18 13:40] VITALS: Ht 162.6 cm; Wt 70.5 kg
[~2017-12-20] VITALS: Ht 162.6 cm; Wt 70.5 kg
--- NOTE | 2017-12-20 11:57 | Endo History and Physical ---
History & Physical Date of Service: Dec 20, 2017. Chief Complaint: DYSPHAGIA Referring Physician: DR SOLANO History of Present Illness patient with dysphagia and esophageal ring Past Medical History Gastrointestinal Disorder, Reflux, Other Past Surgical History Hx Cardiac Surgery: No Hx Internal Defibrillator: No Hx Pacemaker: No Hx Abdominal Surgery: Yes (COLOSTOMY, HERNIA REPAIR X3) Hx Post-Op Nausea and Vomiting: No Hx Cancer Surgery: No Hx Thoracic Surgery: No Hx Orthopedic: Yes (RT FOOT (2ND, 3RD, 4TH) AMPUTATION, SPINAL CLOSURE INFANT) Hx Urinary Tract Surgery: Yes (CIRCUMSICION, CYSTOSCOPY WITH STONE REMOVAL) Family History IBD Social History Smoking Status: Former Smoker Hx Substance Use: No Hx Alcohol Use: Yes (OCCASIONAL) Allergies Coded Allergies: Adhesives (Verified Allergy, Unknown, ADHESIVE TAPERIPS SKIN APART, ) Clindamycin (Verified Allergy, Unknown, RASH, 12/20/17) Iodine (Verified Allergy, Unknown, A TEEN-SKIN CONTACT BURNED THE SKIN- FELT LIKE ON FIRE, 12/20/17) Penicillins (Verified Allergy, Unknown, HIVES-ITCHING,HAS TOLERATED ANCEF IN PAST, 12/20/17) Pineapple (Verified Allergy, Unknown, "TONGUE WALKER AND CRACKS", 12/20/17) Aspirin (Verified Adverse Reaction, Unknown, GI SENSITIVITY, 12/20/17) Iodinated Contrast Media (Verified Adverse Reaction, Unknown, NAUSEA, 12/20) Current Medications Reported Home Medications Medications Dose Route/Sig Max Daily Dose Days Date Category Miralax (Polyethylene Glycol 3350) 1 Pow Pow 17 Gm PO DAILY PRN 12/18/17 Reported Prilosec (Omeprazole) 40 Mg Cap 40 Mg PO QAM 12/18/17 Reported Flonase Allergy Relief (Fluticasone Propionate (Nasal)) 50 Mcg/Act Spr 1 [place] SPENCER DAILY PRN 03/17/17 Reported Claritin-D 24 Hour (Loratadine & Pseudoephedrine) 1 Tab Tab 1 Tab PO QAM PRN 11/11/15 Reported Vital Signs Weight (Kilograms): 70.45 Height (Feet): 5 Height (Inches): 4 Date Time Temp Pulse Resp B/P (MAP) Pulse Ox O2 Delivery O2 Flow Rate FiO2 12/20/17 11:39 36.9 87 18 136/82 (100) 98 Room Air Physical Exam General Appearance: no apparent distress Respiratory/Chest: Auscultation: breath sounds normal Cardiovascular: Heart Auscultation: RRR Abdomen: Inspection & Palpation: soft Liver: non-tender Assessment and Plan stable for EGD
--- NOTE | 2017-12-20 12:33 | Discharge Instructions ---
Endoscopy Patient Instructions Date / Procedure(s) Performed Dec 20, 2017. EGD Allergy Information Coded Allergies: Adhesives (Verified Allergy, Unknown, ADHESIVE TAPERIPS SKIN APART, ) Clindamycin (Verified Allergy, Unknown, RASH, 12/20/17) Iodine (Verified Allergy, Unknown, A TEEN-SKIN CONTACT BURNED THE SKIN- FELT LIKE ON FIRE, 12/20/17) Penicillins (Verified Allergy, Unknown, HIVES-ITCHING,HAS TOLERATED ANCEF IN PAST, 12/20/17) Pineapple (Verified Allergy, Unknown, "TONGUE WALKER AND CRACKS", 12/20/17) Aspirin (Verified Adverse Reaction, Unknown, GI SENSITIVITY, 12/20/17) Iodinated Contrast Media (Verified Adverse Reaction, Unknown, NAUSEA, 12/20) Discharge Date / Findings Dec 20, 2017. lower esophageal ring/ S/P dilatation Provider Instructions Activity Restrictions - No exercising or heavy lifting for 24 hours. - Do not drink alcohol the day of the procedure. - Do not drive a car or operate machinery until the day after the procedure. - Do not make any important decisions or sign important papers in 24 hours after the procedure. Following Day: - Return to full activity which may include returning to work/school. Diet Start your diet with liquids and light foods (jello, soup, juice, toast). Then eat your usual diet if not nauseated. Treatment For Common After Affects For mild abdominal pain, bloating, or excessive gas: - Rest - Eat lightly - Lie on right side Follow-Up Information Follow-up with DR SOLANO as scheduled Anesthesia Information What You Should Know You have had a procedure that required some medicine to reduce anxiety and discomfort. This treatment is called moderate sedation. After receiving the treatment, you may be sleepy, but you will be able to breathe on your own. The effects of the treatment may last for several hours. Follow these instructions along with Activity/Diet recommendations noted above: * Do NOT do anything where dizziness or clumsiness would be dangerous. * Rest quietly at home today, then you can be up and about tomorrow. * Have a responsible person stay with you the rest of today. * You may have had an I.V. today. If so, you may take the dressing off later today. Recommendations Call your doctor if: * Trouble breathing * Continuous vomiting for more than 24 hours * Temperature above 101 degrees * Severe abdominal pain or bloating * Pain not relieved by pain medicine ordered * There is increased drainage or redness from any incision * A large amount of rectal bleeding greater than 2-3 tablespoons. (If you had a polyp/s removed or have hemorrhoids, a small amount of blood - from the rectum is to be expected.) * You have any unanswered questions or concerns. IN THE EVENT OF A SERIOUS EMERGENCY, GO TO THE NEAREST EMERGENCY ROOM Your discharge instructions were prepared by provider Miguel Angel Longoria. Patient Instructions Signature Page Vernon Sommer Patient (or Guardian) Signature/Date: I have read and understand the instructions given to me by my caregivers. Caregiver/RN/Doctor Signature/Date: The above-named patient and/or guardian has received patient instructions on this date. + Original Patient Signature Page (only) stays with chart. Please make copy for patient.
--- NOTE | 2017-12-20 12:37 | GI REPORT ---
Procedure Date: 12/20/2017 12:00 PM Procedure: Upper GI endoscopy Indications: Dysphagia, For therapy of esophageal stricture Medicines: See the Anesthesia note for documentation of the administered medications Complications: No immediate complications. Estimated Blood Loss: Estimated blood loss was minimal. Procedure: Pre-Anesthesia Assessment: - Prior to the procedure, a History and Physical was performed, and patient medications, allergies and sensitivities were reviewed. The patient's tolerance of previous anesthesia was reviewed. - The risks and benefits of the procedure and the sedation options and risks were discussed with the patient. All questions were answered and informed consent was obtained. - Patient identification and proposed procedure were verified prior to the procedure by the physician and the nurse. The procedure was verified in the pre-procedure area. - Pre-procedure physical examination revealed no contraindications to sedation. - After reviewing the risks and benefits, the patient was deemed in satisfactory condition to undergo the procedure. After obtaining informed consent, the endoscope was passed under direct vision. Throughout the procedure, the patient's blood pressure, pulse, and oxygen saturations were monitored continuously. The scope was introduced through the mouth, and advanced to the third part of duodenum. The upper GI endoscopy was accomplished without difficulty. The patient tolerated the procedure well. Findings: A severe Schatzki ring (acquired) was found at the gastroesophageal junction. The endoscope barely passed through stenosis. A guidewire was placed and the scope was withdrawn. Dilation was performed with a Savary dilator with moderate resistance at 36 Fr. Estimated blood loss was minimal. The stomach was normal. The examined duodenum was normal. The cardia and gastric fundus were normal on retroflexion. Impression: - Severe Schatzki ring. Dilated. - No associated esophagitis. - Normal stomach. - Normal examined duodenum. - No specimens collected. Recommendation: - Continue present medications. - Repeat upper endoscopy in 7-10 days for retreatment. Miguel Angel Longoria M.D. Miguel Angel Longoria MD 12/20/2017 12:37:13 PM This report has been signed electronically. Note Initiated On: 12/20/2017 12:00 PM I attest to the content of the Intraoperative Record and orders documented therein, exceptions below
[2017-12-20 13:09] VITALS: BP 128/75; PULSE 87; O2SAT 99
--- NOTE | 2017-12-20 13:45 | Anesthesiology Progress Note ---
Anesthesia Post Op Note Date & Time Dec 20, 2017 at 13:45 Vital Signs Pain Intensity: 0 Vital Signs Past 12 Hours Date Time Temp Pulse Resp B/P (MAP) Pulse Ox O2 Delivery O2 Flow Rate FiO2 12/20/17 13:09 87 20 128/75 (92) 99 Room Air 12/20/17 12:47 95 20 124/75 (91) 95 Room Air 12/20/17 12:32 95 16 111/61 (78) 95 Room Air 12/20/17 11:39 36.9 87 18 136/82 (100) 98 Room Air Notes Mental Status: alert / awake / arousable, participated in evaluation Pt Amnestic to Procedure: Yes Nausea / Vomiting: adequately controlled Pain: adequately controlled Airway Patency, RR, SpO2: stable & adequate BP & HR: stable & adequate Hydration State: stable & adequate Anesthetic Complications: no major complications apparent
== END | disposition home or self-care (01) ==
LOC: C.GI 11:09
PROVIDERS: ATTEND Internal Medicine Gastroenterology
DX: K22.2 Esophageal obstruction (principal); K21.9 Gastro-esophageal reflux disease without esophagitis; I10 Essential (primary) hypertension; Q05.9 Spina bifida, unspecified; Z86.718 Personal history of other venous thrombosis and embolism; Z93.3 Colostomy status; Z91.041 Radiographic dye allergy status; Z88.1 Allergy status to other antibiotic agents; Z88.0 Allergy status to penicillin; Z91.018 Allergy to other foods; Z88.6 Allergy status to analgesic agent; Z89.421 Acquired absence of other right toe(s)

== ENCOUNTER → 2018-01-02 | Day surgery (SDC) | payer OTHER ==
[2017-12-24 15:00] VITALS: Ht 162.6 cm; Wt 70.5 kg
[~2018-01-02] VITALS: Ht 162.6 cm; Wt 70.5 kg
[~2018-01-02] MED LIST changes: -LIDOCAINE HCL 2% 2 ML VIAL (20MG/ML) ONE; -PROPOFOL IV EMULSION 10 MG/ML 20 ML VIAL IV ONE; -SODIUM CHLORIDE 0.9% 500ML 500 ML IV ONE
--- NOTE | 2018-01-02 11:31 | Endo History and Physical ---
History & Physical Date of Service: Jan 02, 2018. Chief Complaint: Dysphagia Referring Physician: Dr. 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, SPINAL CLOSURE INFANT) Hx Urinary Tract Surgery: Yes (CIRCUMSICION, CYSTOSCOPY WITH STONE REMOVAL) Family History IBD Social History Smoking Status: Former Smoker Hx Substance Use: No Hx Alcohol Use: Yes (OCCASIONAL) Allergies Coded Allergies: Adhesives (Verified Allergy, Unknown, ADHESIVE TAPERIPS SKIN APART, ) Clindamycin (Verified Allergy, Unknown, RASH, 12/24/17) Iodine (Verified Allergy, Unknown, A TEEN-SKIN CONTACT BURNED THE SKIN- FELT LIKE ON FIRE, 12/24/17) Penicillins (Verified Allergy, Unknown, HIVES-ITCHING,HAS TOLERATED ANCEF IN PAST, 12/24/17) Pineapple (Verified Allergy, Unknown, "TONGUE WALKER AND CRACKS", 12/24/17) Aspirin (Verified Adverse Reaction, Unknown, GI SENSITIVITY, 12/24/17) Iodinated Contrast Media (Verified Adverse Reaction, Unknown, NAUSEA, 12/24) Current Medications Reported Home Medications Medications Dose Route/Sig Max Daily Dose Days Date Category Miralax (Polyethylene Glycol 3350) 1 Pow Pow 17 Gm PO DAILY PRN 12/18/17 Reported Prilosec (Omeprazole) 40 Mg Cap 40 Mg PO QAM 12/18/17 Reported Flonase Allergy Relief (Fluticasone Propionate (Nasal)) 50 Mcg/Act Spr 1 [place] SPENCER DAILY PRN 03/17/17 Reported Claritin-D 24 Hour (Loratadine & Pseudoephedrine) 1 Tab Tab 1 Tab PO QAM PRN 11/11/15 Reported Vital Signs Weight (Kilograms): 70.45 Height (Feet): 5 Height (Inches): 4 Date Time Temp Pulse Resp B/P (MAP) Pulse Ox O2 Delivery O2 Flow Rate FiO2 01/02/18 11:08 36.8 89 20 154/84 (107) 100 Room Air Physical Exam General Appearance: no apparent distress Respiratory/Chest: Auscultation: breath sounds normal Cardiovascular: Heart Auscultation: RRR Abdomen: Inspection & Palpation: soft Assessment and Plan Dysphagia - EGD
--- NOTE | 2018-01-02 12:43 | GI REPORT ---
Patient Name: Vernon Sommer Procedure Date: 01/02/2018 12:01 PM Date of : 1955 Admit Type: Outpatient Age: 62 Gender: Male Attending MD: Urbano Cobb MD Procedure: Upper GI endoscopy Providers: Urbano Cobb MD Referring MD: Kelton Baptiste Indications: Dysphagia - Pt with ring s/p EGD with dilation by scope on 12/12 and repeat dilation 12/20 with dilation by Savary to 13 Medicines: See the Anesthesia note for documentation of the administered medications Complications: No immediate complications. Estimated Blood Loss: Estimated blood loss: none. Procedure: Pre-Anesthesia Assessment: - ASA Grade Assessment: III - A patient with severe systemic disease. After obtaining informed consent, the endoscope was passed under direct vision. Throughout the procedure, the patient's blood pressure, pulse, and oxygen saturations were monitored continuously. The Scope was introduced through the mouth, and advanced to the second part of duodenum. The upper GI endoscopy was accomplished without difficulty. The patient tolerated the procedure well. Findings: The esophagus was mildly tortuous. The GE junction was at 40 cm. There was a moderate ring at the GE junction. A TTS ballon was inflated over the ring to 13.5 mm; there was a tear just above the ring. The ring was then fractured by deep biopsies. There was a small amount of food in the stomach. The stomach appeared capacious. The pylorus appeared deformed and the duodenal bulb was foreshortened suggestive of prior PUD. The stomach mucosa was normal. The remainder of the duodenum was normal. Biopsies taken from stomach for Hp and from esophagus for Eoe. Impression: Ring at GE junction, dilated to 13.5 with an adequate tear and then fractured with forceps. Gastric exam suggestive of prior PUD, delayed emptying. Stomach, esophagus biopsied. Recommendation: - Discharge patient to home. BID PPI. Repeat exam in 7-10 days for further dilation. Urbano Cobb M.D. Urbano Cobb MD 01/02/2018 12:42:59 PM This report has been signed electronically. Note Initiated On: 01/02/2018 12:01 PM Number of Addenda: 0 I attest to the content of the Intraoperative Record and orders documented therein, exceptions below {[id number]}
--- NOTE | 2018-01-02 12:46 | Discharge Instructions ---
Endoscopy Patient Instructions Date / Procedure(s) Performed Jan 02, 2018. EGD Allergy Information Coded Allergies: Adhesives (Verified Allergy, Unknown, ADHESIVE TAPERIPS SKIN APART, ) Clindamycin (Verified Allergy, Unknown, RASH, 01/02/18) Iodine (Verified Allergy, Unknown, A TEEN-SKIN CONTACT BURNED THE SKIN- FELT LIKE ON FIRE, 01/02/18) Penicillins (Verified Allergy, Unknown, HIVES-ITCHING,HAS TOLERATED ANCEF IN PAST, 01/02/18) Pineapple (Verified Allergy, Unknown, "TONGUE WALKER AND CRACKS", 01/02/18) Aspirin (Verified Adverse Reaction, Unknown, GI SENSITIVITY, 01/02/18) Iodinated Contrast Media (Verified Adverse Reaction, Unknown, NAUSEA, 01/02) Discharge Date / Findings Jan 02, 2018. Ring at GE junction, dilated. Medication Instructions Stopped Medication(s): Patient was told to take his omeprazole. Provider Instructions Activity Restrictions - No exercising or heavy lifting for 24 hours. - Do not drink alcohol the day of the procedure. - Do not drive a car or operate machinery until the day after the procedure. - Do not make any important decisions or sign important papers in 24 hours after the procedure. Following Day: - Return to full activity which may include returning to work/school. Diet Start your diet with liquids and light foods (jello, soup, juice, toast). Then eat your usual diet if not nauseated. Treatment For Common After Affects For mild abdominal pain, bloating, or excessive gas: - Rest - Eat lightly - Lie on right side Follow-Up Information Follow-up with Dr. Kelton Baptiste as scheduled. Repeat exam in 7-10 days for further dilation. Anesthesia Information What You Should Know You have had a procedure that required some medicine to reduce anxiety and discomfort. This treatment is called moderate sedation. After receiving the treatment, you may be sleepy, but you will be able to breathe on your own. The effects of the treatment may last for several hours. Follow these instructions along with Activity/Diet recommendations noted above: * Do NOT do anything where dizziness or clumsiness would be dangerous. * Rest quietly at home today, then you can be up and about tomorrow. * Have a responsible person stay with you the rest of today. * You may have had an I.V. today. If so, you may take the dressing off later today. Recommendations Call your doctor if: * Trouble breathing * Continuous vomiting for more than 24 hours * Temperature above 101 degrees * Severe abdominal pain or bloating * Pain not relieved by pain medicine ordered * There is increased drainage or redness from any incision * A large amount of rectal bleeding greater than 2-3 tablespoons. (If you had a polyp/s removed or have hemorrhoids, a small amount of blood - from the rectum is to be expected.) * You have any unanswered questions or concerns. IN THE EVENT OF A SERIOUS EMERGENCY, GO TO THE NEAREST EMERGENCY ROOM Your discharge instructions were prepared by provider Urabno Villa. Patient Instructions Signature Page Vernon Sommer Patient (or Guardian) Signature/Date: I have read and understand the instructions given to me by my caregivers. Caregiver/RN/Doctor Signature/Date: The above-named patient and/or guardian has received patient instructions on this date. + Original Patient Signature Page (only) stays with chart. Please make copy for patient.
--- NOTE | 2018-01-02 12:50 | Anesthesiology Progress Note ---
Anesthesia Post Op Note Date & Time Jan 02, 2018 at 12:50 Vital Signs Pain Intensity: 0 Vital Signs Past 12 Hours Date Time Temp Pulse Resp B/P (MAP) Pulse Ox O2 Delivery O2 Flow Rate FiO2 01/02/18 12:44 80 18 137/73 (94) 100 Room Air 01/02/18 12:29 68 16 110/62 (78) 96 Room Air 01/02/18 11:08 36.8 89 20 154/84 (107) 100 Room Air Notes Mental Status: alert / awake / arousable, participated in evaluation Pt Amnestic to Procedure: Yes Nausea / Vomiting: adequately controlled Pain: adequately controlled Airway Patency, RR, SpO2: stable & adequate BP & HR: stable & adequate Hydration State: stable & adequate Anesthetic Complications: no major complications apparent
[2018-01-02 12:59] VITALS: BP 133/84; PULSE 81; O2SAT 100
== END | disposition home or self-care (01) ==
LOC: C.GI 10:35
PROVIDERS: ATTEND Internal Medicine Gastroenterology
DX: R13.10 Dysphagia, unspecified (principal); K29.50 Unspecified chronic gastritis without bleeding; I10 Essential (primary) hypertension; M19.90 Unspecified osteoarthritis, unspecified site; Z86.711 Personal history of pulmonary embolism; Z93.3 Colostomy status; Z98.890 Other specified postprocedural states; Z87.891 Personal history of nicotine dependence; Z88.1 Allergy status to other antibiotic agents; Z88.0 Allergy status to penicillin; Z88.6 Allergy status to analgesic agent; Z88.8 Allergy status to other drugs, medicaments and biological substances; Z91.018 Allergy to other foods

== ENCOUNTER 2020-01-26 20:00 | Inpatient (IN) ==
[2020-01-26] MEDS ORDERED: SODIUM CHLORIDE 0.9% 1000ML 1,000 ML IV ONE (20:48)
[2020-01-26] MEDS ORDERED: ACETAMINOPHEN 1,000 MG/100 ML VIAL IV STA (20:48)
[2020-01-26] MEDS ORDERED: PROCHLORPERAZINE 2 ML IV ONE (20:48)
[2020-01-26] MEDS ORDERED: MoRPHine SULFATE 10 MG/ML CARP/VIAL IV STA (20:51)
[2020-01-26 21:23] LABS: Basophils # (auto) 0.02 K/uL (0-0.2); Basophils % (auto) 0.1 %; Eosinophils # (auto) 0.11 K/uL (0-0.5); Eosinophils % (auto) 0.8 %; Hematocrit (blood only) 46.1 % (42-52); Hemoglobin 15.4 g/dL (14.0-18.0); Immature Granulocytes # (auto) 0.03 K/uL (0.00-0.02); Immature Granulocytes % (auto) 0.2 %; Lymphocytes # (auto) 0.56 K/uL (1.2-3.4); Lymphocytes % (auto) 4.1 %; Mean Corpuscular Hemoglobin 27.8 pg (25-34); Mean Corpuscular Hgb Conc 33.4 g/dL (32-36); Mean Corpuscular Volume 83.2 fL (80-100); Mean Platelet Volume 8.5 fL (7.4-10.4); Monocytes # (auto) 0.74 K/uL (0.11-0.59); Monocytes % (auto) 5.5 %; Neutrophils # (auto) 12.08 K/uL (1.4-6.5); Neutrophils % (auto) 89.3 %; Platelet Count 245 K/uL (130-400); RDW Coefficient of Variation 14.4 % (11.5-14.5); RDW Standard Deviation 44.1 fL (36.4-46.3); Red Blood Count 5.54 M/uL (4.7-6.1); White Blood Count 13.54 K/uL (4.8-10.8)
[2020-01-26 21:42] LABS: Albumin Level 3.7 gm/dl (3.4-5.0); BUN Creatinine Ratio 24.5 (10-20); Bilirubin Direct 0.1 mg/dl (0-0.2); Calcium 9.8 mg/dl (8.5-10.1); Creatinine Clr Calc Pharmacy 83.3 ml/min; Est GFR (African American) 107.3; Est GFR (Non-African American) 92.6; Potassium 3.8 mmol/L (3.5-5.1)
[2020-01-26 21:45] LABS: Albumin Globulin Ratio 0.8 (0.9-2); Bilirubin,Total 0.5 mg/dl (0.2-1); Globulin 4.7 gm/dl (2.5-4.0); Total Protein 8.4 gm/dl (6.4-8.2)
[2020-01-26] MEDS ORDERED: IOVERSOL 100ml IV PRN (22:18)
--- NOTE | 2020-01-26 22:36 | CT Scan Report ---
ABDOMEN AND PELVIS CT WITH IV CONTRAST CT DOSE: 784.87 mGy.cm HISTORY: Acute left flank and left lower quadrant abdominal pain with nausea LLQ/flank pain, nausea TECHNIQUE: Multiaxial CT images of the abdomen and pelvis were performed following the IV administrat ion of 90 cc of Optiray 320, A dose lowering technique was utilized adhering to the principles of [place]. COMPARISON STUDY: CT abdomen and pelvis 09/09/2018 FINDINGS: Trace pleural effusions, left greater than right. Traction bibasilar bronchiectasis with subpleural r eticular opacities compatible with fibrotic scarring. 3.0 cm subpleural consolidative opacity of the basal left lower lobe suggest round atelectasis, unchanged. 4 mm solid nodule of the lateral segment right middle lobe, unchanged. No pneumatosis or pneumoperitoneum. Imaged inferior cardiac chambers ar e unremarkable. Coronary artery calcifications. Limited evaluation of the solid abdominal organs with out the use of IV contrast. Within the limitations of the study the spleen and left adrenal gland are unremarkable. 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 Mild to moderate generalized pancreatic atrophy. Unremarkable gallbladder. There are a few scattered hypodense foci of the liver measuring up to 9 mm suggestive of probable cysts. Hepatic steatosis. Intermediate density 1.7 cm lesion of the lateral interpolar right kidney is unchanged. Bilateral en al cysts. Intermediate density 1.6 cm lesion of the superior pole left kidney previously demonstrated Hounsfield unit of 13 which may also reflect a complex cyst. Indeterminate 11 mm intermediate densit y lesion of the anterior interpolar left kidney. Cortical thinning of the bilateral kidneys. Left uro thelial thickening. Asymmetric left-sided perinephric stranding. Moderate left-sided hydroureteroneph rosis secondary to proximal ureteral calculi. There appears to be approximately 3 calculi within the dependent renal pelvic junction, largest of which measures 1.5 x 1.5 x 2.2 cm. The smaller calculi me asure up to approximately 3-4 mm. Calculus of the left ureter at the level of L4 measures 6 x 8 x 9 m m. Mild urinary bladder distention with trabeculation. Coarse calcifications of the enlarged prostate . No aortic aneurysm. Descending colostomy with moderate sized parastomal hernia redemonstrated containing a nonobstructed loop of small bowel. Dilation of the central canal within the lower thorax with of the spinal dysraph ism adjacent soft tissue calcifications redemonstrated. Partial agenesis of the sacrum. Right inferio r gluteal decubitus ulcer redemonstrated. IMPRESSION: 1. Moderate left-sided hydroureteronephrosis secondary to multiple calculi of the proximal left urete r measuring up to 2.2 cm. Associated left-sided urothelial thickening is likely reactive. Correlate w ith urinalysis to exclude superimposed infection. 2. Descending colostomy with moderate parastomal hernia. No bowel obstruction or bowel wall thickenin g. 3. Chronic right inferior gluteal decubitus ulcer. 4. Chronic findings as above. ACT 112: Negative or not required by law. The above report was generated using voice recognition software. It may contain grammatical, syntax o r spelling errors. Electronically signed by: Adam Dennis M.D. 01/26/2020 10:35 PM
[2020-01-26] MEDS ORDERED: cefTRIAXone SODIUM 2,000 MG/70 ML BAG IV STA (23:09)
--- NOTE | 2020-01-26 23:09 | Emergency Department Note ---
Impression & Plan Hydronephrosis due to obstruction of ureter, Ureterolithiasis, Acute UTI, Acute left flank pain ED Provider Note NAME: ANA BEARD AGE: 64 SEX: M ARRIVES VIA: Ambulance INFORMANT: Patient, ED PROVIDER(S): Fritz Jacobsen MD CHIEF COMPLAINT: Left flank pain PLAN: Disposition: Admit MEDICAL DECISION MAKING: The patient is a pleasant 64-year-old gentleman with a past medical history of spina bifida, wheelchair-bound, history of colostomy, chronic indwelling Little catheter 2/2 neurogenic bladder who presents emergency department with left- sided flank pain that began abruptly today at 1400 with associated nausea and chills prior to arrival. The patient denies any fevers, cough, congestion, vomiting, changes in colostomy output. On arrival patient uncomfortable no acute distress, afebrile with vital signs otherwise stable. On exam the patient has mild left flank left and left lower quadrant tenderness without guarding or rebound. WBC 13.5, nonspecific. H/H and platelets within normal limits. Chemistry without acidosis. Electrolytes and LFTs unremarkable. CT abdomen pelvis demonstrates moderate left-sided hydronephrosis secondary to multiple calculi of the proximal left ureter measuring up to 2 cm. There is urothelial thickening that is likely reactive. UA with WBC and bacteria but also epitheleal cells from indwelling Little catheter. Given the patient is afebrile and nontoxic-appearing unlikely to represent infected stone at this time. However will draw blood cultures and treat empirically with antibiotics for now. Patient agrees with plan for admission. Case was discussed with Dr. Ruvalcaba, [facility] hospitalist, who will evaluate the patient for admission. Triage Nursing notes reviewed and agree them. Prior medical records reviewed Vital Signs: reviewed and remarkable for no significant abnormalities Differential diagnosis: Renal colic, UTI, appendicitis, diverticulitis, mesenteric ischemia, aortic pathology, infections, inflammatory bowel disease, PUD, biliary pathology, as well as other pathologies. ER treatment provided: See below. Diagnostics interpreted by me: Cardiac Monitoring: An order for continuous cardiac monitoring was placed and demonstrated sinus tachycardia, 122 bpm, no ectopy. Laboratory studies: See below Imaging studies: ABDOMEN AND PELVIS CT WITH IV CONTRAST CT DOSE: 784.87 mGy.cm HISTORY: Acute left flank and left lower quadrant abdominal pain with nausea LLQ/flank pain, nausea TECHNIQUE: Multiaxial CT images of the abdomen and pelvis were performed following the IV administration of 90 cc of Optiray 320, A dose lowering technique was utilized adhering to the principles of ALARA. COMPARISON STUDY: CT abdomen and pelvis 09/09/2018 FINDINGS: Trace pleural effusions, left greater than right. Traction bibasilar bronchiectasis with subpleural reticular opacities compatible with fibrotic scarring. 3.0 cm subpleural consolidative opacity of the basal left lower lobe suggest round atelectasis, unchanged. 4 mm solid nodule of the lateral segment right middle lobe, unchanged. No pneumatosis or pneumoperitoneum. Imaged inferior cardiac chambers are unremarkable. Coronary artery calcifications. Limited evaluation of the solid abdominal organs without the use of IV contrast. Within the limitations of the study the spleen and left adrenal gland are unremarkable. 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 Mild to moderate generalized pancreatic atrophy. Unremarkable gallbladder. There are a few scattered hypodense foci of the liver measuring up to 9 mm suggestive of probable cysts. Hepatic steatosis. Intermediate density 1.7 cm lesion of the lateral interpolar right kidney is unchanged. Bilateral renal cysts. Intermediate density 1.6 cm lesion of the superior pole left kidney previously demonstrated Hounsfield unit of 13 which may also reflect a complex cyst. Indeterminate 11 mm intermediate density lesion of the anterior interpolar left kidney. Cortical thinning of the bilateral kidneys. Left urothelial thickening. Asymmetric left-sided perinephric stranding. Moderate left-sided hydroureteronephrosis secondary to proximal ureteral calculi. There appears to be approximately 3 calculi within the dependent renal pelvic junction, largest of which measures 1.5 x 1.5 x 2.2 cm. The smaller calculi measure up to approximately 3-4 mm. Calculus of the left ureter at the level of L4 measures 6 x 8 x 9 mm. Mild urinary bladder distention with trabeculation. Coarse calcifications of the enlarged prostate. No aortic aneurysm. Descending colostomy with moderate sized parastomal hernia redemonstrated containing a nonobstructed loop of small bowel. Dilation of the central canal within the lower thorax with of the spinal dysraphism adjacent soft tissue calcifications redemonstrated. Partial agenesis of the sacrum. Right inferior gluteal decubitus ulcer redemonstrated. IMPRESSION: 1. Moderate left-sided hydroureteronephrosis secondary to multiple calculi of the proximal left ureter measuring up to 2.2 cm. Associated left-sided uro thelial thickening is likely reactive. Correlate with urinalysis to exclude superimposed infection. 2. Descending colostomy with moderate parastomal hernia. No bowel obstruction or bowel wall thickening. 3. Chronic right inferior gluteal decubitus ulcer. 4. Chronic findings as above. ACT 112: Negative or not required by law. Consultation(s): Case was discussed with Dr. Ruvalcaba, [facility] hospitalist, who will evaluate the patient for admission. HPI: The patient is a pleasant 64-year-old gentleman with a past medical history of spina bifida, wheelchair-bound, history of colostomy, chronic indwelling Little catheter 2/2 neurogenic bladder who presents emergency department with left-sided flank pain that began abruptly today at 1400 with associated nausea and chills prior to arrival. The patient denies any fevers, cough, congestion, vomiting, changes in colostomy output. ROS: See above HPI for pertinent positives & negatives. A total of 10 systems reviewed and were otherwise negative. PAST MEDICAL HISTORY:See Below PAST SURGICAL HISTORY:See Below FAMILY HISTORY:See Below SOCIAL HISTORY:See Below HOME MEDICATIONS:See Below ALLERGIES:See Below VITALS:See Below PHYSICAL EXAMINATION: GENERAL: Awake, alert, uncomfortable-appearing, in no distress HENT: Normocephalic, atraumatic. Oropharynx with dry mucous membranes and otherwise unremarkable. EYES: Normal conjunctiva. Sclera non-icteric. NECK: Supple. No nuchal rigidity. FROM. No JVD. RESPIRATORY: Clear to auscultation. CARDIAC: Tachycardic rate, normal rhythm. Extremities warm and well perfused. Pulses equal. ABDOMEN: Soft, non-distended. Mild LLQ and left flank tenderness. No rebound or guarding. No masses. RECTAL: Deferred. MUSCULOSKELETAL: Chest examination reveals no tenderness. The back is symmetrical on inspection without obvious abnormality. There is no CVA tenderness to palpation. No joint edema. LOWER EXTREMITIES: Calves are equal size bilaterally and non-tender. No edema. No discoloration. NEURO: Normal sensorium. No sensory or motor deficits noted from baseline paraplegia. SKIN: No rash or jaundice noted. Fritz Jacobsen MD Past Med/Surg History Medical History Anxiety Chronic back pain Chronic gum disease Colostomy hernia Colostomy in place Decubitus ulcer CHRONIC; FOLLOWS W/ WOUND CLINIC Deep vein thrombosis > 10 YEARS AGO - TREATED W/ BLOOD THINNERS - R/T IMMOBILITY Depression Dysphagia Frequent UTI Hearing deficit RT EAR History of anesthesia reaction SLOW TO WAKE History of febrile seizure X 1; CHILDHOOD HTN (hypertension) Kidney stones Neurogenic bladder Osteoarthritis Paraplegia Schatzki's ring Seasonal allergies Spina bifida (Acute) SPINAL CLOSURE INFANT Tinnitus RT EAR Uses [place] catheter Wheelchair bound Surgical History 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 History of colonoscopy History of cystoscopy W/ STONE EXTRACTION History of esophageal dilatation History of esophagogastroduodenoscopy (EGD) History of exploratory laparotomy History of incisional hernia repair X3 History of lithotripsy History of sinus surgery History of surgery RT HIP WOUND DEBRIDEMENT W/ SKIN GRAFTING History of tooth extraction Status post myringotomy with insertion of tube Family History Other No family history of adverse response to anesthesia Social History Preferred Language: Upper Sorbian Communication Ability: Effective Side Seam Tender Required: No Beliefs That Will Affect Care: None Current Living Situation: Alone Other Information That Helps Us Care for You: No Feels Safe at Home: Yes Safety Concerns: Feels Safe At This Time Smoking Status: Former smoker Second Hand Exposure: No ; Hx Alcohol Use: Yes Alcohol type: other Hx Substance Use: No Allergies Allergies Allergy/AdvReac Type Severity Reaction Status Date / Time iodine Allergy Intermediate A Verified 01/26/20 20:35 TEEN-SKIN CONTACT BURNED THE SKIN-FELT LIKE ON FIRE adhesive Allergy Mild ADHESIVE Verified 01/26/20 20:35 TAPE RIPS SKIN APART clindamycin Allergy Mild RASH Verified 01/26/20 20:35 Iodinated Contrast Media Allergy Mild NAUSEA Verified 01/26/20 20:35 Penicillins Allergy Mild HIVES-ITCHING,HAS Verified 01/26/20 20:35 TOLERATED ANCEF IN PAST pineapple Allergy Mild "TONGUE Verified 01/26/20 20:35 WALKER AND CRACKS" aspirin AdvReac Mild GI Verified 01/26/20 20:35 SENSITIVITY silk tape AdvReac Mild ichy,red, Uncoded 01/26/20 20:35 irritated skin Home Meds Home Medications Medication Instructions Recorded Confirmed loratadine [Allergy Relief 10 mg PO DAILY PRN 01/26/20 01/26/20 (loratadine)] Results & Data (ED) Vital Signs Vital Signs - 24 hr 01/26/20 20:11 01/26/20 20:19 01/26/20 21:03 Temperature 37.5 C Temperature Source Oral Pulse Rate 107 H 108 H 110 H Pulse Rate [Apical] Pulse Rate from SpO2 Sensor Pulse Rhythm Regular Pulse Rhythm [Apical] Pulse Strength Normal Respiratory Rate 17 19 20 Respiratory Effort / Characteristics Non-Labored Spontaneous Respiratory Depth Normal Respiratory Pattern Regular Blood Pressure 166/95 H 166/95 H Blood Pressure [Right Arm] Blood Pressure Mean 109 118 Blood Pressure Mean [Right Arm] Blood Pressure Position Sitting Pulse Oximetry 98 Oxygen Delivery Method Room Air Sepsis Recent Fever Within 48 Hours No Sepsis Action Taken by Nursing No Action Required 01/26/20 21:07 01/26/20 21:14 01/26/20 21:30 Temperature Temperature Source Pulse Rate 108 H 99 H Pulse Rate [Apical] 109 H Pulse Rate from SpO2 Sensor 100 H Pulse Rhythm Pulse Rhythm [Apical] Regular Pulse Strength Respiratory Rate 18 13 Respiratory Effort / Characteristics Respiratory Depth Respiratory Pattern Blood Pressure 153/86 H Blood Pressure [Right Arm] 153/86 H Blood Pressure Mean 113 Blood Pressure Mean [Right Arm] 108 Blood Pressure Position Pulse Oximetry 97 92 Oxygen Delivery Method Room Air Sepsis Recent Fever Within 48 Hours Sepsis Action Taken by Nursing 01/26/20 22:00 01/26/20 22:30 01/26/20 23:00 Temperature Temperature Source Pulse Rate 97 H Pulse Rate [Apical] Pulse Rate from SpO2 Sensor 97 H 95 H 92 H Pulse Rhythm Pulse Rhythm [Apical] Pulse Strength Respiratory Rate 14 13 13 Respiratory Effort / Characteristics Respiratory Depth Respiratory Pattern Blood Pressure Blood Pressure [Right Arm] Blood Pressure Mean Blood Pressure Mean [Right Arm] Blood Pressure Position Pulse Oximetry 92 92 91 Oxygen Delivery Method Sepsis Recent Fever Within 48 Hours Sepsis Action Taken by Nursing 01/26/20 23:05 01/27/20 00:00 01/27/20 00:30 Temperature Temperature Source Pulse Rate Pulse Rate [Apical] Pulse Rate from SpO2 Sensor 98 H 87 82 Pulse Rhythm Pulse Rhythm [Apical] Pulse Strength Respiratory Rate 12 22 21 Respiratory Effort / Characteristics Respiratory Depth Respiratory Pattern Blood Pressure 136/70 118/68 104/59 L Blood Pressure [Right Arm] Blood Pressure Mean 80 84 65 Blood Pressure Mean [Right Arm] Blood Pressure Position Pulse Oximetry 93 92 93 Oxygen Delivery Method Sepsis Recent Fever Within 48 Hours Sepsis Action Taken by Nursing Laboratory Data Attestation: I reviewed the patient's lab results. Result diagrams: 01/26/20 21:14 01/26/20 21:14 Lab Results 01/26/20 01/26/20 01/26/20 Range/Units 21:14 21:14 22:55 WBC 13.54 H (4.8-10.8) K/uL RBC 5.54 (4.7-6.1) M/uL Hgb 15.4 (14.0-18.0) g/dL Hct 46.1 (42-52) % MCV 83.2 (80-100) fL MCH 27.8 (25-34) pg MCHC 33.4 (32-36) g/dL RDW Std Deviation 44.1 (36.4-46.3) fL RDW Coeff of Sebastian 14.4 (11.5-14.5) % Plt Count 245 (130-400) K/uL MPV 8.5 (7.4-10.4) fL Immature Gran % (Auto) 0.2 % Neut % (Auto) 89.3 % Lymph % (Auto) 4.1 % Maries % (Auto) 5.5 % Eos % (Auto) 0.8 % Baso % (Auto) 0.1 % Immature Gran # (Auto) 0.03 H (0.00-0.02) K/uL Neut # (Auto) 12.08 H (1.4-6.5) K/uL Lymph # (Auto) 0.56 L (1.2-3.4) K/uL Maries # (Auto) 0.74 H (0.11-0.59) K/uL Eos # (Auto) 0.11 (0-0.5) K/uL Baso # (Auto) 0.02 (0-0.2) K/uL Sodium 136 (136-145) mmol/L Potassium 3.8 (3.5-5.1) mmol/L Chloride 102 (98-107) mmol/L Carbon Dioxide 26 (21-32) mmol/L Anion Gap 8.0 (3-11) BUN 20 H (7-18) mg/dl Creatinine 0.81 (0.6-1.4) mg/dl Est Cr Clr Drug Dosing 83.3 ml/min Est GFR ( Amer) 107.3 Est GFR (Non-Af Amer) 92.6 BUN/Creatinine Ratio 24.5 H (10-20) Glucose 118 H (70-99) mg/dl Lactate (0.4-2.0) mmol/L Calcium 9.8 (8.5-10.1) mg/dl Total Bilirubin 0.5 (0.2-1) mg/dl Direct Bilirubin 0.1 (0-0.2) mg/dl AST 17 (15-37) U/L ALT 21 (12-78) U/L Alkaline Phosphatase 96 (45-117) U/L Total Protein 8.4 H (6.4-8.2) gm/dl Albumin 3.7 (3.4-5.0) gm/dl Globulin 4.7 H (2.5-4.0) gm/dl Albumin/Globulin Ratio 0.8 L (0.9-2) Lipase 157 (73-393) U/L Urine Color Yellow Urine Appearance Turbid A (Clear) Urine pH 7.0 (4.5-7.5) Ur Specific [place] 1.019 (1.000-1.030) Urine Protein 1+ H (Negative) Urine Glucose (UA) Negative (Negative) Urine Ketones Negative (Negative) Urine Blood 2+ H (Negative) Urine Nitrite Negative (Negative) Urine Bilirubin Negative (Negative) Urine Urobilinogen Negative (Negative) Ur Leukocyte Esterase 3+ H (Negative) Urine WBC (Auto) >30 H (0-5) /hpf Urine RBC (Auto) >30 H (0-4) /hpf U Hyaline Cast (Auto) 1-5 (0-5) /lpf U Epithel Cells (Auto) >30 H (0-5) /lpf Urine Bacteria (Auto) 4+ H (Negative) // Range/Units 23:43 WBC (4.8-10.8) K/uL RBC (4.7-6.1) M/uL Hgb (14.0-18.0) g/dL Hct (42-52) % MCV (80-100) fL MCH (25-34) pg MCHC (32-36) g/dL RDW Std Deviation (36.4-46.3) fL RDW Coeff of Sebastian (11.5-14.5) % Plt Count (130-400) K/uL MPV (7.4-10.4) fL Immature Gran % (Auto) % Neut % (Auto) % Lymph % (Auto) % Maries % (Auto) % Eos % (Auto) % Baso % (Auto) % Immature Gran # (Auto) (0.00-0.02) K/uL Neut # (Auto) (1.4-6.5) K/uL Lymph # (Auto) (1.2-3.4) K/uL Maries # (Auto) (0.11-0.59) K/uL Eos # (Auto) (0-0.5) K/uL Baso # (Auto) (0-0.2) K/uL Sodium (136-145) mmol/L Potassium (3.5-5.1) mmol/L Chloride (98-107) mmol/L Carbon Dioxide (21-32) mmol/L Anion Gap (3-11) BUN (7-18) mg/dl Creatinine (0.6-1.4) mg/dl Est Cr Clr Drug Dosing ml/min Est GFR ( Amer) Est GFR (Non-Af Amer) BUN/Creatinine Ratio (10-20) Glucose (70-99) mg/dl Lactate 1.0 (0.4-2.0) mmol/L Calcium (8.5-10.1) mg/dl Total Bilirubin (0.2-1) mg/dl Direct Bilirubin (0-0.2) mg/dl AST (15-37) U/L ALT (12-78) U/L Alkaline Phosphatase (45-117) U/L Total Protein (6.4-8.2) gm/dl Albumin (3.4-5.0) gm/dl Globulin (2.5-4.0) gm/dl Albumin/Globulin Ratio (0.9-2) Lipase (73-393) U/L Urine Color Urine Appearance (Clear) Urine pH (4.5-7.5) Ur Specific [place] (1.000-1.030) Urine Protein (Negative) Urine Glucose (UA) (Negative) Urine Ketones (Negative) Urine Blood (Negative) Urine Nitrite (Negative) Urine Bilirubin (Negative) Urine Urobilinogen (Negative) Ur Leukocyte Esterase (Negative) Urine WBC (Auto) (0-5) /hpf Urine RBC (Auto) (0-4) /hpf U Hyaline Cast (Auto) (0-5) /lpf U Epithel Cells (Auto) (0-5) /lpf Urine Bacteria (Auto) (Negative) Administered Medications Sodium Chloride (Nss 1000ml) 1,000 mls @ 100 mls/hr IV .Q10H LESLI Stop: 02/26/20 01:49 Last Admin: 01/27/20 02:22 Dose: 100 mls/hr Documented by: [id number] Discontinued Medications Sodium Chloride (Nss 1000ml) 1,000 mls @ 999 mls/hr IV .Q1H1M ONE Stop: 01/26/20 21:48 Last Infusion: 01/26/20 22:48 Dose: 0 mls/hr Documented by: [id number] Admin: 01/26/20 21:05 Dose: 999 mls/hr Documented by: [id number] Acetaminophen (Ofirmev) 1,000 mg in 100 mls @ 400 mls/hr IV NOW STA Stop: 01/26/20 21:02 Last Infusion: 01/26/20 21:54 Dose: 0 mls/hr Documented by: [id number] Admin: 01/26/20 21:05 Dose: 400 mls/hr Documented by: [id number] Prochlorperazine (Compazine) 2 mls @ 1 mls/min IV ONE ONE Stop: 01/26/20 20:49 Last Admin: 01/26/20 21:05 Dose: 1 mls/min Documented by: [id number] Ceftriaxone Sodium (Rocephin) 2,000 mg in 70 mls @ 140 mls/hr IV NOW STA Stop: 01/26/20 23:38 Last Infusion: 01/27/20 00:35 Dose: 0 mls/hr Documented by: [id number] Admin: 01/26/20 23:16 Dose: 140 mls/hr Documented by: [id number] Ioversol (Optiray 320 100ml) 90 ml IV ONCE PRN PRN Reason: Interaction Checking Stop: 01/30/20 22:17 Last Admin: 05/19/20 22:18 Dose: 90 ml Documented by: [id number] Morphine Sulfate (Morphine Sulfate) 6 mg IV NOW STA Stop: 01/26/20 20:52 Last Admin: 01/26/20 21:05 Dose: 6 mg Documented by: [id number] Blood Pressure Blood Pressure Findings: Elevated blood pressure Blood Pressure Disposition: elevated BP felt to be situational Discharge Plan Visit Data *Final* Discharge Date/Time: 01/27/20 01:27 Chief Complaint: Hip Pain ED Provider: Fritz Jacobsen Discharge Problem: Hydronephrosis due to obstruction of ureter, Ureterolithiasis, Acute UTI, Acute left flank pain Patient Disposition: Admitted As Inpatient Discharge Instructions Interventions: ED Discharge Assessment Last Done: 01/27/20 01:27
[2020-01-26 23:20] LABS: Appearance Urine Turbid (Clear); Bacteria Urine Automated 4+ (Negative); Bilirubin Urine Negative (Negative); Blood Urine 2+ (Negative); Color Urine Yellow; Epithelial Cell Urine Auto >30 /lpf (0-5); Glucose Urine UA Negative (Negative); Ketones Urine Negative (Negative); Leukocyte Esterase Urine 3+ (Negative); Nitrite Urine Negative (Negative); Protein Urine 1+ (Negative); RBC Urine Automated >30 /hpf (0-4); Specific Gravity Urine 1.019 (1.000-1.030); Urobilinogen Urine Negative (Negative); WBC Urine Automated >30 /hpf (0-5)
[2020-01-27] MEDS ORDERED: HYDROmorphone INJ 0.5 MG/0.5 ML SYR IV PRN (01:50)
[2020-01-27] MEDS ORDERED: ACETAMINOPHEN 325 MG TAB PO PRN (01:50)
[2020-01-27] MEDS ORDERED: ONDANSETRON INJ 2 MG/ML 2 ML VIAL IV PRN ×2 (01:50→15:58)
--- NOTE | 2020-01-27 02:12 | History and Physical Report ---
DATE OF ADMISSION: 01/27/2020 CHIEF COMPLAINT: Left flank pain. HISTORY OF PRESENT ILLNESS: This is a 64-year-old male with past medical history significant for spina bifida of the lumbosacral region, paraplegia, neurogenic bladder, GERD, Meniere's disease, iron deficiency anemia, generalized anxiety disorder, depression, colostomy status, parastomal hernia without obstruction, wheelchair bound, who lives alone in the apartment comes because of left flank pain. The patient noticed severe left flank pain in the afternoon, was not getting better, so he came here and imaging studies shows left ureteral multiple stones, largest being 2.2 cm, moderate left sided hydronephrosis. He has chronic indwelling condom catheter, history of recurrent UTIs in the recent past, UA is positive here, but the patient is afebrile. Denies any chest pain, no shortness of breath, no cough, no nausea, no headache. No hematuria, no blood in the stools or black stools. Currently, resting comfortably and hemodynamically stable. ALLERGIES: ADHESIVE TAPE, ASPIRIN, CLINDAMYCIN, PENICILLINS, PINEAPPLE, POVIDONE. PAST MEDICAL HISTORY: As mentioned above. PAST SURGICAL HISTORY: Circumcision, colostomy to prevent pressure sores, cystoscopy with lithotripsy, multiple EGDs, exploratory laparotomy, incision of the ear drum for serous otitis, muscle skin flap in buttocks area, amputations of toes of right foot, percutaneous nephrostolithotomy for removal of kidney stone, greater than 2 cm, excision of ischial ulcer, repair of incisional hernia. MEDICATIONS: The patient is currently on loratadine 10 mg p.o. daily p.r.n. FAMILY HISTORY: Significant for father has arthritis, Paget's disease, alive until age 91. Brother had prostate cancer. Mother had heart disorder. SOCIAL HISTORY: Single, former smoker, quit in 1973. Alcohol occasionally. No drug use. REVIEW OF SYMPTOMS: As per HPI. Rest of review of symptoms negative. PHYSICAL EXAMINATION: GENERAL: The patient is of moderate build, not in acute distress. VITAL SIGNS: Temperature 37.5, pulse 97, respiratory rate 21, blood pressure 104/59, oxygen 93% on room air. HEENT: No pallor, no icterus. Pupils equal, round, reactive to light. NECK: Supple, no neck masses. CARDIOVASCULAR: S1, S2 heard, regular rate and rhythm, no murmur, no gallop. RESPIRATORY SYSTEM: Normal AP diameter. No accessory muscle use. No wheezing, no crackles. ABDOMEN: Soft, bowel sounds present. Nontender. CENTRAL NERVOUS SYSTEM: Alert and oriented. Obeys commands. Unable to roll over. SKIN:chronic sacral decubitus ulcer. LABORATORY DATA: WBC 13.5, hemoglobin 15.4, hematocrit 46.1, platelets 245. Sodium 136, potassium 3.8, chloride 102, bicarbonate 26, BUN 20, creatinine 0.8, serum glucose 118. Lactate 1, calcium 9.8, total bilirubin 0.5, direct bilirubin 0.1, AST 17, ALT 21, alkaline phosphatase 96, lipase 157. Urinalysis +[address] of the abdomen and pelvis, moderate left sided hydroureteronephrosis secondary to multiple calculi in proximal left ureter measuring up to 2.2 cm, also has left sided ureteral thickening, is likely reactive. Chronic right inferior gluteal decubitus ulcer. ASSESSMENT AND PLAN: This is a 64-year-old male who presents with left flank pain and found to have kidney stones. 1. Left flank pain. Renal colic, 2.2 cm kidney stone and left-sided moderate hydronephrosis with multiple stones. Currently, pain is improved. UA is positive, but has history of chronic infections. We will empirically put him on Rocephin, IV fluids, IV Dilaudid p.r.n., n.p.o. and consult Urology in a.m. for further recommendations. 2. Urinary tract infection. Follow urine cultures. Rocephin. 3. Chronic decubitus ulcer. Home health changes dressings. Will consider consult wound care while he is in the hospital. 4. History of spina bifida, paraplegia, neurogenic bladder and status post colostomy, wheelchair bound, lives alone in an apartment and has home health care. 5. Deep venous thrombosis prophylaxis, sequential compression devices. DISPOSITION: Closely monitor in the medical floor. Level 1 full code as per my discussion with the patient. MTDD
[2020-01-27] MEDS: SODIUM CHLORIDE 0.9% 1000ML 1,000 ML IV SCH ×2 (02:22→11:55)
[2020-01-27 07:17] LABS: Basophils # (auto) 0.01 K/uL (0-0.2); Basophils % (auto) 0.1 %; Eosinophils # (auto) 0.13 K/uL (0-0.5); Eosinophils % (auto) 1.6 %; Hematocrit (blood only) 42.2 % (42-52); Hemoglobin 13.9 g/dL (14.0-18.0); Immature Granulocytes # (auto) 0.02 K/uL (0.00-0.02); Immature Granulocytes % (auto) 0.2 %; Lymphocytes # (auto) 1.28 K/uL (1.2-3.4); Lymphocytes % (auto) 15.7 %; Mean Corpuscular Hemoglobin 27.5 pg (25-34); Mean Corpuscular Hgb Conc 32.9 g/dL (32-36); Mean Corpuscular Volume 83.6 fL (80-100); Mean Platelet Volume 8.6 fL (7.4-10.4); Monocytes # (auto) 0.79 K/uL (0.11-0.59); Monocytes % (auto) 9.7 %; Neutrophils # (auto) 5.93 K/uL (1.4-6.5); Neutrophils % (auto) 72.7 %; Platelet Count 212 K/uL (130-400); RDW Coefficient of Variation 14.6 % (11.5-14.5); RDW Standard Deviation 44.4 fL (36.4-46.3); Red Blood Count 5.05 M/uL (4.7-6.1); White Blood Count 8.16 K/uL (4.8-10.8)
[2020-01-27 07:46] LABS: BUN Creatinine Ratio 22.2 (10-20); Calcium 8.7 mg/dl (8.5-10.1); Creatinine Clr Calc Pharmacy 104.3 ml/min; Est GFR (African American) 117.5; Est GFR (Non-African American) 101.4; Potassium 3.8 mmol/L (3.5-5.1)
--- NOTE | 2020-01-27 10:08 | Urology Consultation ---
Date of Consultation January 27, 2020 Assessment & Plan (1) Hydronephrosis due to obstruction of ureter: has an obstructing left ureteral stone 6-8mm. plan a stent only today as we cannot laser or irrigate with an active urine infection present. will need to come back for day surgery to remove the stones. plan to leave a abel for his chronic urine retention. he needs better drainage to clear the infection. Present on Admission?: Yes History of Present Illness Reason for Consultation: I am asked by Dr Ruvalcaba to evaluate and treat patient for left urinary stones. He was admitted via ER for flank p[ain. Urine is infected. He has a 6-8mm left ureteral stone with obstruction. He has a 20mm stone in left kidney non obstructing. He had severe pain starting suddenly yesterday with nausea and dry heaves. His pain is controlled now. He did not fever. He has a leukocytosis. Requesting Physician: Dr Ruvalcaba Attending Physician: Harsh Garcia MD History of Present Illness I am asked by Dr Ruvalcaba to evaluate and treat patient for left urinary stones. He was admitted via ER for flank pain. Urine is infected. He has a 6-8mm left ureteral stone with obstruction. He has a 20mm stone in left kidney non obstructing. He had severe pain starting suddenly yesterday with nausea and dry heaves. His pain is controlled now. He did not fever. He has a leukocytosis. Allergies Allergy/AdvReac Type Severity Reaction Status Date / Time iodine Allergy Intermediate A Verified 01/26/20 20:35 TEEN-SKIN CONTACT BURNED THE SKIN-FELT LIKE ON FIRE adhesive Allergy Mild ADHESIVE Verified 01/26/20 20:35 TAPE RIPS SKIN APART clindamycin Allergy Mild RASH Verified 01/26/20 20:35 Iodinated Contrast Media Allergy Mild NAUSEA Verified 01/26/20 20:35 Penicillins Allergy Mild HIVES-ITCHING,HAS Verified 01/26/20 20:35 TOLERATED ANCEF IN PAST pineapple Allergy Mild "TONGUE Verified 01/26/20 20:35 WALKER AND CRACKS" aspirin AdvReac Mild GI Verified 01/26/20 20:35 SENSITIVITY silk tape AdvReac Mild ichy,red, Uncoded 01/26/20 20:35 irritated skin Home Medications Home Medications Medication Instructions Recorded Confirmed Type loratadine [Allergy Relief 10 mg PO DAILY PRN 01/26/20 01/26/20 History (loratadine)] Patient History Medical History Anxiety Chronic back pain Chronic gum disease Colostomy hernia Colostomy in place Decubitus ulcer CHRONIC; FOLLOWS W/ WOUND CLINIC Deep vein thrombosis > 10 YEARS AGO - TREATED W/ BLOOD THINNERS - R/T IMMOBILITY Depression Dysphagia Frequent UTI Hearing deficit RT EAR History of anesthesia reaction SLOW TO WAKE History of febrile seizure X 1; CHILDHOOD HTN (hypertension) Kidney stones Neurogenic bladder Osteoarthritis Paraplegia Schatzki's ring Seasonal allergies Spina bifida (Acute) SPINAL CLOSURE INFANT Tinnitus RT EAR Uses [place] catheter Wheelchair bound Surgical History 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 History of colonoscopy History of cystoscopy W/ STONE EXTRACTION History of esophageal dilatation History of esophagogastroduodenoscopy (EGD) History of exploratory laparotomy History of incisional hernia repair X3 History of lithotripsy History of sinus surgery History of surgery RT HIP WOUND DEBRIDEMENT W/ SKIN GRAFTING History of tooth extraction Status post myringotomy with insertion of tube Family History Other No family history of adverse response to anesthesia Social History Preferred Language: Urdu Communication Ability: Effective Tile Fitter Required: No Beliefs That Will Affect Care: None Current Living Situation: Alone Other Information That Helps Us Care for You: No Feels Safe at Home: Yes Safety Concerns: Feels Safe At This Time Smoking Status: Former smoker Second Hand Exposure: No ; Hx Alcohol Use: Yes Alcohol type: other Hx Substance Use: No Review of Systems Review of Systems: PMH- spina bifida, colostomy, skin break down right hip/glut with flaps, parastomal hernia and prior multiple repairs, frequent uti, urine retention, eye surgeries, PCNL for large kidney stones in past. Physical Exam Constitutional: WD/WN, vitals as above + obese, cooperative and comfortable; no acute distress Respiratory: normal respiratory effort, lungs clear to auscultation Cardiovascular: RRR, no murmur, no edema Gastrointestinal (Abdomen): large parastomal hernia, not distended, not tender Musculoskeletal: has contractures of ankles, and severe atrophy of lower legs, no edema or tenderness Skin: no rashes, warm and dry Psychiatric: A+Ox3, euthymic affect Results & Data Vital Signs (Past 12 Hours) Vital Signs Temp Pulse Resp BP BP Pulse Ox 01/27/20 07:18 36.5 C 101 H 20 130/72 90 01/27/20 01:50 36.9 C 83 18 105/53 L 95 01/27/20 01:00 13 103/59 L 93 01/27/20 00:30 21 104/59 L 93 01/27/20 00:00 22 118/68 92 01/26/20 23:05 12 136/70 93 01/26/20 23:00 13 91 01/26/20 22:30 13 92
[2020-01-27] MEDS ORDERED: PROPOFOL IV EMULSION 10 MG/ML 20 ML VIAL IV ONE (15:11)
[2020-01-27] MEDS ORDERED: ONDANSETRON INJ 2 MG/ML 2 ML VIAL ONE (15:11)
[2020-01-27] MEDS ORDERED: LIDOCAINE HCL 2% 2 ML VIAL/AMP(20MG/ML) INFIL ONE (15:11)
[2020-01-27] MEDS ORDERED: fentaNYL citrate 100 MCG/2 ML VIAL ONE (15:11)
[2020-01-27] MEDS ORDERED: DEXAMETHASONE SOD INJ 4 MG/ML VIAL ONE (15:11)
[2020-01-27] MEDS ORDERED: MIDAZOLAM HCL 1 MG/ML 2ML VIAL ONE (15:11)
--- NOTE | 2020-01-27 15:47 | Anesthesiology Consultation ---
Date of Service January 27, 2020 Assessment & Plan (1) Encounter for pre-operative examination: Chart Review Chart Review: Acceptable Risk for Surgery Consults Requested none ASA ASA3 Proposed Anesthesia Anesthesia Type: MAC Risk / Benefits Reviewed With: PT / POA / Parent / Guardian, Accepts Plan and Informed Consent Obtained History Surgery Operation Date: 01/27/20 14:20 Proposed Procedures p Cystoscopy, Left Stent Insertion - Juhi Pinto MD Height/Weight Height: 5 ft 4 in Weight: 76.1 kg Allergies Allergy/AdvReac Type Severity Reaction Status Date / Time iodine Allergy Intermediate A Verified 01/26/20 20:35 TEEN-SKIN CONTACT BURNED THE SKIN-FELT LIKE ON FIRE adhesive Allergy Mild ADHESIVE Verified 01/26/20 20:35 TAPE RIPS SKIN APART clindamycin Allergy Mild RASH Verified 01/26/20 20:35 Iodinated Contrast Media Allergy Mild NAUSEA Verified 01/26/20 20:35 Penicillins Allergy Mild HIVES-ITCHING,HAS Verified 01/26/20 20:35 TOLERATED ANCEF IN PAST pineapple Allergy Mild "TONGUE Verified 01/26/20 20:35 WALKER AND CRACKS" aspirin AdvReac Mild GI Verified 01/26/20 20:35 SENSITIVITY silk tape AdvReac Mild ichy,red, Uncoded 01/26/20 20:35 irritated skin Medications Home Medications Medication Instructions Recorded Confirmed Last Taken loratadine [Allergy Relief 10 mg PO DAILY PRN 01/26/20 01/26/20 Unknown (loratadine)] Active Medications Generic Name Dose Route Start Last Admin Trade Name Freq PRN Reason Stop Dose Admin Sodium Chloride 1,000 mls @ 100 mls/hr 01/27/20 01:50 01/27/20 11:55 Nss 1000ml IV 02/26/20 01:49 100 mls/hr .Q10H LESLI Administration NPO Date Last Intake of Fluids: 01/27/20 Time Last Intake of Fluids: 08:00 Last Intake of Fluids Comment: ice chips Date Last Intake of Solids: 01/26/20 Time Last Intake of Solids: 10:00 Past Medical History Medical History Anxiety Chronic back pain Chronic gum disease Colostomy hernia Colostomy in place Decubitus ulcer CHRONIC; FOLLOWS W/ WOUND CLINIC Deep vein thrombosis > 10 YEARS AGO - TREATED W/ BLOOD THINNERS - R/T IMMOBILITY Depression Dysphagia Frequent UTI Hearing deficit RT EAR History of anesthesia reaction SLOW TO WAKE History of febrile seizure X 1; CHILDHOOD HTN (hypertension) Kidney stones Neurogenic bladder Osteoarthritis Paraplegia Schatzki's ring Seasonal allergies Spina bifida (Acute) SPINAL CLOSURE Tinnitus RT EAR Uses [place] catheter Wheelchair bound Exercise / Class Metabolic Activity IV < 2 Limit ADL/Bedbound Past Family History Family History Other No family history of adverse response to anesthesia Past Surgical History Surgical History 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 History of colonoscopy History of cystoscopy W/ STONE EXTRACTION History of esophageal dilatation History of esophagogastroduodenoscopy (EGD) History of exploratory laparotomy History of incisional hernia repair X3 History of lithotripsy History of sinus surgery History of surgery RT HIP WOUND DEBRIDEMENT W/ SKIN GRAFTING History of tooth extraction Status post myringotomy with insertion of tube Past Anesthesia History No Hx of Anesthesia Complications and No Family Hx of Anesthesia Complications History of PONV No Hx of PONV and No Hx of Motion Sickness Social History Smoking Status: Former smoker Hx Alcohol Use: Yes Alcohol type: other alcohol intake frequency: holidays/special occasions only Hx Substance Use: No substance use type: does not use Physical Exam Vital Signs Last Vital Signs Temp 99.0 F 01/27/20 15:43 Pulse 87 01/27/20 14:57 Resp 18 01/27/20 15:43 BP 149/71 H 01/27/20 15:43 Pulse Ox 98 01/27/20 15:43 ENMT Mouth: no dentition abnormality Thyromental Distance: > or= 3.5 Finger Breadths Mallampati Class: II Neck normal visual inspection Respiratory normal respiratory effort Auscultation: lungs clear to auscultation bilaterally Cardiovascular Rate/Rhythm: regular rate and regular rhythm Testing Laboratory Results 01/27/20 07:00 01/27/20 07:00 Urine Color Yellow 01/26/20 22:55 Urine Appearance Turbid (Clear) A 01/26/20 22:55 Urine pH 7.0 (4.5-7.5) 01/26/20 22:55 Ur Specific [place] 1.019 (1.000-1.030) 01/26/20 22:55 Urine Protein 1+ (Negative) H 01/26/20 22:55 Urine Glucose (UA) Negative (Negative) 01/26/20 22:55 Urine Ketones Negative (Negative) 01/26/20 22:55 Urine Nitrite Negative (Negative) 01/26/20 22:55 Ur Leukocyte Esterase 3+ (Negative) H 01/26/20 22:55 Urine WBC (Auto) >30 /hpf (0-5) H 01/26/20 22:55 Urine RBC (Auto) >30 /hpf (0-4) H 01/26/20 22:55 U Hyaline Cast (Auto) 1-5 /lpf (0-5) 01/26/20 22:55 U Epithel Cells (Auto) >30 /lpf (0-5) H 01/26/20 22:55 Urine Bacteria (Auto) 4+ (Negative) H 01/26/20 22:55 Electrocardiogram Date: 09/14/19 Normal sinus rhythm, rate [address] and T wave abnormality Abnormal ECG When compared with ECG of 26-APR-2012 14:42, ST now depressed in Anterior leads Nonspecific T wave abnormality now evident in Anterior leads Confirmed by Jefferson Phillips ([id number]) on 09/14/2019 3:34:32 PM
[2020-01-27] MEDS ORDERED: ePHEDrine sulfate 50 MG/ML AMP IV PRN (15:58)
[2020-01-27] MEDS ORDERED: fentaNYL citrate 100 MCG/2 ML VIAL IV PRN (15:58)
[2020-01-27] MEDS ORDERED: ATROPINE SULFATE 0.1 MG/ML 10ML SYR IV PRN (15:58)
--- NOTE | 2020-01-27 16:37 | Operative Report ---
Post Operative Report Pre & Post Diagnosis Operation Date: 01/27/20 14:20 Pre-Op Diagnosis: Left obstructing ureteral stone, 2.2 cm left kidney stone and left-sided moderate hydronephrosis with multiple stones and uti Post-Op Diagnosis: Left flank pain. Renal colic, 2.2 cm kidney stone and left-sided moderate hydronephrosis with multiple stones. I identified the patient and participated in the time-out.: Yes Procedure Operation Date: 01/27/20 14:20 Actual Procedures p Cystoscopy, Left Stent Insertion, Difficult Abel(Left) - Juhi Pinto MD Surgeon Juhi Pinto MD Director Social none Estimated Blood Loss 0 Findings Consistent with Post-Op Diagnosis radio-opaque ureteral and renal stones Fluids 350 Specimens none Drains 6 fr 22 centimeter double j stent left 16 fr cilicone abel [place] tip Anesthesia Type MAC Complications none Disposition Accompanied Patient To Recovery: Yes Disposition: Recovery Room Indications uti and obstructing left ureteral stone with colic. Description of Procedure Patient was sedated and placed in lithotomy position. His genitals were prepped and draped in sterile fashion. Time out held with team. I placed a 21 fr rigid cystoscope to bladder. The urethra is unremarkable. The prostate is small but there is a large mature completely healed false passage at the prostate. The UOs are normal location. the dependent bladder has marked inflammatory changes like a cystitis cystica. Urine has moderate debris. I placed a road runner wire up left ureter to kidney easily and switched via 5 fr catheter to a stiff wire. I then placed a 22 centimeter 6 Fr double J stent easily. There is brisk efflux after placement. I left bladder empty by placing a abel catheter over a wire I had placed thru the cystoscope. I cannot place a catheter without wire because abel goes into the false passage just shy of the bladder neck. I inflated 7mL water in balloon and connected to gravity drainage. I concluded case. He transferred to recovery under my escort, in stable condition. Plan: Home tomorrow if afebrile will need stone surgery in near future. I suspect at [facility] for a PCNL oral pain meds as needed ASA 3 clean contaminated case 13 seconds fluoro ceftriaxone antibiotic on a daily dose I attest to the content of the Intraoperative Record and any orders documented therein. Any exceptions are noted below.
--- NOTE | 2020-01-27 16:52 | Anesthesiology Progress Note ---
Date of Service January 27, 2020 Anesthesia Post Procedure Vital Signs Vital Signs: Temp Pulse Pulse Pulse Resp BP BP 01/27/20 16:45 99.0 F 94 H 18 123/74 01/27/20 16:37 99.0 F 97 H 15 127/77 01/27/20 15:43 99.0 F 18 149/71 H 01/27/20 14:57 99.0 F 87 20 131/67 01/27/20 07:18 97.7 F 101 H 20 130/72 01/27/20 01:50 98.4 F 83 18 105/53 L 01/27/20 01:00 13 103/59 L 01/27/20 00:30 21 104/59 L 01/27/20 00:00 22 118/68 01/26/20 23:05 12 136/70 01/26/20 23:00 13 01/26/20 22:30 13 01/26/20 22:00 97 H 14 01/26/20 21:30 99 H 13 01/26/20 21:14 01/26/20 21:07 108 H 109 H 18 153/86 H 153/86 H 01/26/20 21:03 110 H 20 01/26/20 20:19 99.5 F 108 H 19 166/95 H 01/26/20 20:11 107 H 17 166/95 H Pulse Ox 01/27/20 16:45 95 01/27/20 16:37 99 01/27/20 15:43 98 01/27/20 14:57 96 01/27/20 07:18 90 01/27/20 01:50 95 01/27/20 01:00 93 01/27/20 00:30 93 01/27/20 00:00 92 01/26/20 23:05 93 01/26/20 23:00 91 01/26/20 22:30 92 01/26/20 22:00 92 01/26/20 21:30 92 01/26/20 21:14 97 01/26/20 21:07 01/26/20 21:03 01/26/20 20:19 98 01/26/20 20:11 Pain Intensity Lower Back: Pain Intensity: 10 Transfer of Care Handoff Completed per policy Notes Mental Status: alert / awake / arousable and participated in evaluation Patient Amnestic to Procedure: Yes Nausea / Vomiting: adequately controlled Pain: adequately controlled Airway Patency, RR, SpO2: stable & adequate BP & HR: stable & adequate Hydration State: stable & adequate Anesthetic Complications: no major complications apparent and Pt Satisfied with anesthetic care
--- NOTE | 2020-01-27 17:03 | Fluoroscopy Report ---
INTRAOPERATIVE RADIOGRAPHS CLINICAL HISTORY: Left-sided ureteral stent placement. Fluoroscopy time: 14 seconds. FINDINGS: 4 spot fluoroscopic views of the left abdomen are correlated with abdominal CT dated 020. The initial image shows a wire projecting over the left renal pelvis with a large calculus in th e left proximal ureter. An additional calcification is seen in the proximal to mid left ureter. The n ext 3 images show a left ureteral stent being deployed. This appears to be in appropriate position. P rostatic calcifications are seen in the pelvis. IMPRESSION: Intraoperative images from a left ureteral stent placement procedure as above. Electronically signed by: Terrance Dugan M.D. 01/27/2020 5:02 PM
--- NOTE | 2020-01-27 20:12 | Hospitalist Progress Note ---
Date of Service January 27, 2020 Assessment & Plan Admission and Anticipated Discharge Date Admission Date: January 27, 2020 Subjective Patient seen and examined in his room, 250. He sitting up in bed, in no acute distress. Denies any fevers, chills, chest pain, shortness of breath. He also denies any abdominal pain, nausea or vomiting. He underwent procedure with Dr. Pinto earlier today -cystoscopy and left stent insertion. Tolerated procedure well. Currently says that he is hungry no other complaints. He is awake alert and oriented answers questions appropriately. Lungs are clear to auscultation bilaterally. Heart sounds are regular. Abdomen is soft, nontender nondistended, brown stool output noted in colostomy bag. Moves upper extremities spontaneously and without difficulty. States he still has left flank pain however feels much better than prior to admission. Understands that he will need multiple procedures with urology. Results & Data Results & Data ([facility]) Vital Signs (Past 12 Hours) Vital Signs Temp Pulse Pulse Resp BP Pulse Ox 01/27/20 19:45 36.9 C 91 H 16 113/65 96 01/27/20 18:45 37.0 C 90 16 116/66 94 01/27/20 18:21 36.9 C 91 H 16 130/75 94 01/27/20 17:48 36.9 C 90 14 138/71 95 01/27/20 17:30 36.9 C 90 18 116/63 96 01/27/20 17:15 36.9 C 93 H 16 129/74 98 01/27/20 16:55 37.2 C 91 H 16 130/73 96 01/27/20 16:45 94 H 18 123/74 95 01/27/20 16:37 37.2 C 97 H 15 127/77 99 01/27/20 15:43 37.2 C 18 149/71 H 98 01/27/20 14:57 37.2 C 87 20 131/67 96
[2020-01-27] MEDS: cefTRIAXone SODIUM 1,000 MG in DEXTROSE 5% 50 ML IV SCH (21:38)
[2020-01-28] MEDS: SODIUM CHLORIDE 0.9% 1000ML 1,000 ML IV SCH ×2 (00:52→09:50)
[2020-01-28 07:25] LABS: Hemoglobin 12.3 g/dL (14.0-18.0); Mean Corpuscular Hemoglobin 27.3 pg (25-34); Mean Corpuscular Hgb Conc 32.4 g/dL (32-36); Mean Corpuscular Volume 84.4 fL (80-100); Mean Platelet Volume 8.6 fL (7.4-10.4); Platelet Count 212 K/uL (130-400); RDW Coefficient of Variation 14.6 % (11.5-14.5); RDW Standard Deviation 45.4 fL (36.4-46.3); White Blood Count 5.57 K/uL (4.8-10.8)
[2020-01-28 07:50] LABS: BUN Creatinine Ratio 16.3 (10-20); Calcium 7.5 mg/dl (8.5-10.1); Creatinine Clr Calc Pharmacy 111.1 ml/min; Est GFR (African American) 120.6; Est GFR (Non-African American) 104.1; Magnesium 1.9 mg/dl (1.8-2.4); Phosphorus 1.8 mg/dl (2.5-4.9); Potassium 3.5 mmol/L (3.5-5.1)
[2020-01-28] MEDS ORDERED: POTASSIUM CHLORIDE 20 MEQ TABCR PO STA (10:28)
[2020-01-28] MEDS ORDERED: POTASSIUM PHOS 3 MMOL/1 ML INFUSION IV STA (10:28)
[2020-01-28] MEDS ORDERED: POTASSIUM PHOSPHATE 15 MMOL in SODIUM CHLORIDE 0.9% 250 ML IV STA (10:29)
--- NOTE | 2020-01-28 10:32 | Hospitalist Progress Note ---
Date of Service January 28, 2020 Assessment & Plan (1) Acute left flank pain: (2) Acute UTI: (3) Hydronephrosis due to obstruction of ureter: (4) Ureterolithiasis: This is a 64-year-old male who presents with left flank pain and found to have kidney stones/ obstructing, causing hydronephrosis. 1. Left flank pain. Renal colic, 2.2 cm kidney stone and left-sided moderate hydronephrosis with multiple stones. UA is positive, but has history of chronic infections. Empirically started on Rocephin, IV fluids, IV Dilaudid p.r.n., n.p.o. and consulted Urology. Pt is now s/p cystoscopy and Left ureteral stent placement yesterday (01/26) with Dr. Pinto from urology Tolerated procedure well. Cont. Rocephin. Plan to d/c home tmrw, further urologic procedures planned later. 2. Urinary tract infection. Follow urine cultures. Rocephin. 3. Chronic decubitus ulcer. Home health changes dressings. Will consider consult wound care while he is in the hospital. 4. History of spina bifida, paraplegia, neurogenic bladder and status post colostomy, wheelchair bound, lives alone in an apartment and has home health care. 5. DVT prophylaxis, SCDs. Admission and Anticipated Discharge Date Admission Date: January 27, 2020 Subjective No acute events overnight. Pt underwent procedure w/ Dr. Pinto yesterday (L uret. stent placement). Patient afebrile overnight. Currently denies any fever, chills, chest pain, shortness of breath, abd. pain, nausea or vomiting. Urine culture obtained however not conclusive, recommend to recollect. Ordered UA urine culture. For now we will continue ceftriaxone. Review of Systems Review of Systems: All systems reviewed & are unremarkable except as noted in HPI & below Constitutional: no fever and no chills Respiratory: no cough and no dyspnea Cardiovascular: no chest pain and no palpitations Gastrointestinal: no abdominal pain, no nausea and no vomiting Physical Exam Physical Exam: GENERAL: The patient is of moderate build, not in acute distress. HEENT: No pallor, no icterus. Pupils equal, round, reactive to light. EOMI. NECK: Supple, no neck masses. CARDIOVASCULAR: S1, S2 heard, regular rate and rhythm, no murmur, no gallop. RESPIRATORY SYSTEM: No accessory muscle use. CTAB No wheezing, no crackles. ABDOMEN: Soft, bowel sounds present. Nontender to palpation. Stool output in colost. bag NEURO: Alert and oriented x3. no facial asymmetry, speech fluent, moves upper extremities spont. and w/o difficulty EXTREMITIES: lower extremities atrophied, +ankle contractures SKIN:chronic sacral decubitus ulcer. Results & Data Results & Data ([facility]) Vital Signs (Past 12 Hours) Vital Signs Temp Pulse Resp BP Pulse Ox 01/28/20 07:43 36.8 C 76 18 116/65 98 01/27/20 23:41 37.1 C 86 18 109/64 95 Laboratory Results 01/28/20 01/28/20 Range/Units 07:06 07:06 WBC 5.57 (4.8-10.8) K/uL RBC 4.50 L (4.7-6.1) M/uL Hgb 12.3 L (14.0-18.0) g/dL Hct 38.0 L (42-52) % MCV 84.4 (80-100) fL MCH 27.3 (25-34) pg MCHC 32.4 (32-36) g/dL RDW Std Deviation 45.4 (36.4-46.3) fL RDW Coeff of Sebastian 14.6 H (11.5-14.5) % Plt Count 212 (130-400) K/uL MPV 8.6 (7.4-10.4) fL Sodium 139 (136-145) mmol/L Potassium 3.5 (3.5-5.1) mmol/L Chloride 109 H (98-107) mmol/L Carbon Dioxide 26 (21-32) mmol/L Anion Gap 4.0 (3-11) BUN 10 (7-18) mg/dl Creatinine 0.61 (0.6-1.4) mg/dl Est Cr Clr Drug Dosing 111.1 ml/min Est GFR ( Amer) 120.6 Est GFR (Non-Af Amer) 104.1 BUN/Creatinine Ratio 16.3 (10-20) Glucose 95 (70-99) mg/dl Calcium 7.5 L (8.5-10.1) mg/dl Phosphorus 1.8 L (2.5-4.9) mg/dl Magnesium 1.9 (1.8-2.4) mg/dl Medications Administered Current Inpatient Medications Acetaminophen (Tylenol) 650 mg PO Q4H PRN PRN Reason: pain/fever Stop: 02/26/20 01:49 Hydromorphone HCl (Dilaudid) 0.5 mg IV Q4H PRN PRN Reason: Pain Stop: 02/10/20 01:49 Sodium Chloride (Nss 1000ml) 1,000 mls @ 100 mls/hr IV .Q10H LESLI Stop: 02/26/20 01:49 Last Admin: 01/28/20 09:50 Dose: 100 mls/hr Documented by: Ceftriaxone Sodium 1,000 mg/ (Dextrose) 50 mls @ 100 mls/hr IV Q24H LESLI; Protocol Stop: 02/05/20 21:59 Last Infusion: 01/27/20 22:23 Dose: Infused Documented by: Potassium Phosphate 15 mmol/ (Sodium Chloride) 255 mls @ 88 mls/hr IV NOW STA Stop: 01/28/20 13:22 Ondansetron HCl (Zofran) 4 mg IV Q6H PRN PRN Reason: Nausea Stop: 02/26/20 01:49
[2020-01-28] MEDS: SACCHAROMYCES BOULARDII 250 MG CAP PO SCH (11:19)
[2020-01-28 13:33] LABS: Appearance Urine Cloudy (Clear); Bacteria Urine Automated Negative (Negative); Bilirubin Urine Negative (Negative); Blood Urine 3+ (Negative); Color Urine Yellow; Epithelial Cell Urine Auto 0-5 /lpf (0-5); Glucose Urine UA Negative (Negative); Ketones Urine 1+ (Negative); Leukocyte Esterase Urine 3+ (Negative); Nitrite Urine Negative (Negative); Protein Urine 1+ (Negative); RBC Urine Automated >30 /hpf (0-4); Specific Gravity Urine 1.013 (1.000-1.030); Urobilinogen Urine Negative (Negative); WBC Urine Automated >30 /hpf (0-5); pH Urine 6.5 (4.5-7.5)
[2020-01-28] MEDS: POLYETHYLENE (MIRALAX) 17 GM PACK PO PRN (13:47)
[2020-01-28] MEDS: cefTRIAXone SODIUM 1,000 MG in DEXTROSE 5% 50 ML IV SCH (14:43)
[2020-01-29 08:10] LABS: Hematocrit (blood only) 39.1 % (42-52); Hemoglobin 12.8 g/dL (14.0-18.0); Mean Corpuscular Hemoglobin 27.2 pg (25-34); Mean Corpuscular Hgb Conc 32.7 g/dL (32-36); Mean Corpuscular Volume 83.2 fL (80-100); Mean Platelet Volume 8.8 fL (7.4-10.4); Platelet Count 222 K/uL (130-400); RDW Coefficient of Variation 14.5 % (11.5-14.5); RDW Standard Deviation 44.2 fL (36.4-46.3); White Blood Count 5.77 K/uL (4.8-10.8)
[2020-01-29] MEDS: SACCHAROMYCES BOULARDII 250 MG CAP PO SCH (08:14)
[2020-01-29] MEDS: POLYETHYLENE (MIRALAX) 17 GM PACK PO PRN (08:22)
[2020-01-29 08:43] LABS: BUN Creatinine Ratio 16.4 (10-20); Calcium 8.3 mg/dl (8.5-10.1); Creatinine Clr Calc Pharmacy 118.9 ml/min; Potassium 3.8 mmol/L (3.5-5.1)
--- NOTE | 2020-01-29 09:16 | Hospitalist Progress Note ---
Date of Service January 29, 2020 Assessment & Plan (1) Acute left flank pain: (2) Acute UTI: (3) Hydronephrosis due to obstruction of ureter: (4) Ureterolithiasis: This is a 64-year-old male who presents with left flank pain and found to have kidney stones/ obstructing, causing hydronephrosis. 1. Left flank pain. Renal colic, 2.2 cm kidney stone and left-sided moderate hydronephrosis with multiple stones. UA is positive, but has history of chronic infections. Empirically started on Rocephin, IV fluids, IV Dilaudid p.r.n., n.p.o. and consulted Urology. Pt is now s/p cystoscopy and Left ureteral stent placement (01/26) with Dr. Pinto from urology. Tolerated procedure well. Cont. Rocephin., Will now switch to p.o. cefuroxime and will discharge home on this antibiotic. Plan to d/c home today (01/28), further urologic procedures planned later. 2. Urinary tract infection. Follow urine cultures. Rocephin. Urine culture from January showed several types of organisms present, all high counts and repeat collection was recommended. Repeated UA and urine culture yesterday (01/27), UA does not show bacteria. Blood cultures negative. 3. Chronic decubitus ulcer. Home health changes dressings. 4. History of spina bifida, paraplegia, neurogenic bladder, wheelchair bound, lives alone in an apartment and has home health care. CM contacted, will make sure that home health agency aware of patient coming back home today. DVT prophylaxis, SCDs. Admission and Anticipated Discharge Date Admission Date: January 27, 2020 Subjective No acute events overnight. Pt underwent procedure w/ Dr. Pinto (L uret. stent placement). Patient continues to be afebrile. Currently denies any fever, chills, chest pain, shortness of breath, abd. pain, nausea or vomiting. Also denies any left flank pain, says that he is little achy but significantly better than when he first came to the hospital. Urine culture obtained however not conclusive, recommend to recollect. Ordered UA urine culture yesterday. UA negative for bacteria. Review of Systems Review of Systems: All systems reviewed & are unremarkable except as noted in HPI & below Constitutional: no fever and no chills Respiratory: no cough and no dyspnea Cardiovascular: no chest pain and no palpitations Gastrointestinal: no abdominal pain, no nausea and no vomiting Physical Exam Physical Exam: GENERAL: The patient is of moderate build, not in acute distress. HEENT: No pallor, no icterus. Pupils equal, round, reactive to light. EOMI. NECK: Supple, no neck masses. CARDIOVASCULAR: S1, S2 heard, regular rate and rhythm, no murmur, no gallop. RESPIRATORY SYSTEM: No accessory muscle use. CTAB No wheezing, no crackles. ABDOMEN: Soft, bowel sounds present. Nontender to palpation. Stool output in colost. bag NEURO: Alert and oriented x3. no facial asymmetry, speech fluent, moves upper extremities spont. and w/o difficulty EXTREMITIES: lower extremities atrophied, +ankle contractures SKIN:chronic sacral decubitus ulcer Results & Data Results & Data ([facility]) Vital Signs (Past 12 Hours) Vital Signs Temp Pulse Resp BP Pulse Ox 01/29/20 07:40 36.8 C 78 18 125/67 98 01/28/20 23:33 36.9 C 76 18 119/71 97 Laboratory Results 01/29/20 01/29/20 01/28/20 Range/Units 07:26 07:26 13:15 WBC 5.77 (4.8-10.8) K/uL RBC 4.70 (4.7-6.1) M/uL Hgb 12.8 L (14.0-18.0) g/dL Hct 39.1 L (42-52) % MCV 83.2 (80-100) fL MCH 27.2 (25-34) pg MCHC 32.7 (32-36) g/dL RDW Std Deviation 44.2 (36.4-46.3) fL RDW Coeff of Sebastian 14.5 (11.5-14.5) % Plt Count 222 (130-400) K/uL MPV 8.8 (7.4-10.4) fL Sodium 138 (136-145) mmol/L Potassium 3.8 (3.5-5.1) mmol/L Chloride 106 (98-107) mmol/L Carbon Dioxide 26 (21-32) mmol/L Anion Gap 6.0 (3-11) BUN 9 (7-18) mg/dl Creatinine 0.57 L (0.6-1.4) mg/dl Est Cr Clr Drug Dosing 118.9 ml/min Est GFR ( Amer) 124.0 Est GFR (Non-Af Amer) 107.0 BUN/Creatinine Ratio 16.4 (10-20) Glucose 111 H (70-99) mg/dl Calcium 8.3 L (8.5-10.1) mg/dl Urine Color Yellow Urine Appearance Cloudy A (Clear) Urine pH 6.5 (4.5-7.5) Ur Specific [place] 1.013 (1.000-1.030) Urine Protein 1+ H (Negative) Urine Glucose (UA) Negative (Negative) Urine Ketones 1+ H (Negative) Urine Blood 3+ H (Negative) Urine Nitrite Negative (Negative) Urine Bilirubin Negative (Negative) Urine Urobilinogen Negative (Negative) Ur Leukocyte Esterase 3+ H (Negative) Urine WBC (Auto) >30 H (0-5) /hpf Urine RBC (Auto) >30 H (0-4) /hpf U Hyaline Cast (Auto) 1-5 (0-5) /lpf U Epithel Cells (Auto) 0-5 (0-5) /lpf Urine Bacteria (Auto) Negative (Negative) Medications Administered Current Inpatient Medications Acetaminophen (Tylenol) 650 mg PO Q4H PRN PRN Reason: pain/fever Stop: 02/26/20 01:49 Hydromorphone HCl (Dilaudid) 0.5 mg IV Q4H PRN PRN Reason: Pain Stop: 02/10/20 01:49 Ceftriaxone Sodium 1,000 mg/ (Dextrose) 50 mls @ 100 mls/hr IV Q24H LESLI; Protocol Stop: 02/05/20 21:59 Last Infusion: 01/28/20 15:31 Dose: Infused Documented by: Ondansetron HCl (Zofran) 4 mg IV Q6H PRN PRN Reason: Nausea Stop: 02/26/20 01:49 Polyethylene Glycol (Miralax Powder Packet) 17 gm PO DAILY PRN PRN Reason: Constipation Stop: 02/27/20 13:33 Last Admin: 01/29/20 08:22 Dose: 17 gm Documented by: Saccharomyces Boulardii (Florastor) 250 mg PO DAILY [facility] Stop: 02/27/20 10:44 Last Admin: 01/29/20 08:14 Dose: 250 mg Documented by:
[2020-01-29] MEDS: cefTRIAXone SODIUM 1,000 MG in DEXTROSE 5% 50 ML IV SCH (11:27)
[2020-01-29] MEDS ORDERED: cefUROXime axetil 500 MG TAB PO SCH (11:30)
[2020-01-29] MEDS ORDERED: cefUROXime axetil 250 MG TABLET PO SCH (11:45)
--- NOTE | 2020-01-29 12:30 | Discharge Summary ---
Date of Service January 29, 2020 Admission HPI Per Admitting Provider This is a 64-year-old male with past medical history significant for spina bifida of the lumbosacral region, paraplegia, neurogenic bladder, GERD, Meniere's disease, iron deficiency anemia, generalized anxiety disorder, depression, colostomy status, parastomal hernia without obstruction, wheelchair bound, who lives alone in the apartment comes because of left flank pain. The patient noticed severe left flank pain in the afternoon, was not getting better, so he came here and imaging studies shows left ureteral multiple stones, largest being 2.2 cm, moderate left sided hydronephrosis. He has chronic indwelling condom catheter, history of recurrent UTIs in the recent past, UA is positive here, but the patient is afebrile. Denies any chest pain, no shortness of breath, no cough, no nausea, no headache. No hematuria, no blood in the stools or black stools. Currently, resting comfortably and hemodynamically stable. Admission Exam Per Admitting Provider GENERAL: The patient is of moderate build, not in acute distress. VITAL SIGNS: Temperature 37.5, pulse 97, respiratory rate 21, blood pressure 104/59, oxygen 93% on room air. HEENT: No pallor, no icterus. Pupils equal, round, reactive to light. NECK: Supple, no neck masses. CARDIOVASCULAR: S1, S2 heard, regular rate and rhythm, no murmur, no gallop. RESPIRATORY SYSTEM: Normal AP diameter. No accessory muscle use. No wheezing, no crackles. ABDOMEN: Soft, bowel sounds present. Nontender. CENTRAL NERVOUS SYSTEM: Alert and oriented. Obeys commands. Unable to roll over. SKIN:chronic sacral decubitus ulcer. Principal Diagnosis UTI, obstructing left ureteral stone Discharge Exam GENERAL: The patient is of moderate build, not in acute distress. HEENT: No pallor, no icterus. Pupils equal, round, reactive to light. EOMI. NECK: Supple, no neck masses. CARDIOVASCULAR: S1, S2 heard, regular rate and rhythm, no murmur, no gallop. RESPIRATORY SYSTEM: No accessory muscle use. CTAB No wheezing, no crackles. ABDOMEN: Soft, bowel sounds present. Nontender to palpation. Stool output in colost. bag NEURO: Alert and oriented x3. no facial asymmetry, speech fluent, moves upper extremities spont. and w/o difficulty EXTREMITIES: lower extremities atrophied, +ankle contractures SKIN:chronic sacral decubitus ulcer Discharge Data Allergies Allergy/AdvReac Type Severity Reaction Status Date / Time iodine Allergy Intermediate A Verified 01/26/20 20:35 TEEN-SKIN CONTACT BURNED THE SKIN-FELT LIKE ON FIRE adhesive Allergy Mild ADHESIVE Verified 01/26/20 20:35 TAPE RIPS SKIN APART clindamycin Allergy Mild RASH Verified 01/26/20 20:35 Iodinated Contrast Media Allergy Mild NAUSEA Verified 01/26/20 20:35 Penicillins Allergy Mild HIVES-ITCHING,HAS Verified 01/26/20 20:35 TOLERATED ANCEF IN PAST pineapple Allergy Mild "TONGUE Verified 01/26/20 20:35 WALKER AND CRACKS" aspirin AdvReac Mild GI Verified 01/26/20 20:35 SENSITIVITY Consultations 01/26/20 23:01 ED Decision to Admit Stat 01/27/20 01:50 Consult Case Management - Discharge Planning Routine 01/27/20 08:00 Consult Urology Routine Procedures Performed Operation Date: 01/27/20 14:20 Actual Procedures p Cystoscopy, Left Stent Insertion, Difficult Little(Left) - Juhi Pinto MD Ordered Studies 01/26/20 20:48 CT abd pelvis IV con only Stat IMPRESSION: 1. Moderate left-sided hydroureteronephrosis secondary to multiple calculi of the proximal left ureter measuring up to 2.2 cm. Associated left-sided urothelial thickening is likely reactive. Correlate with urinalysis to exclude superimposed infection. 2. Descending colostomy with moderate parastomal hernia. No bowel obstruction or bowel wall thickening. 3. Chronic right inferior gluteal decubitus ulcer. 4. Chronic findings as above. 01/27/20 07:00 FL retrograde includes kub Routine Hospital Course (1) Acute left flank pain: (2) Acute UTI: (3) Hydronephrosis due to obstruction of ureter: (4) Ureterolithiasis: This is a 64-year-old male who presented with left flank pain and found to have kidney stones/ obstructing, causing hydronephrosis. 1. Left flank pain. Renal colic, 2.2 cm kidney stone and left-sided moderate hydronephrosis with multiple stones. UA is positive, but has history of chronic infections. Empirically started on Rocephin, IV fluids, IV Dilaudid p.r.n., n.p.o. and consulted Urology. Pt is now s/p cystoscopy and Left ureteral stent placement (01/26) with Dr. Pinto from urology. Tolerated procedure well. Cont. Rocephin., Will now switch to p.o. cefuroxime and will discharge home on this antibiotic. Plan to d/c home today (01/28), further urologic procedures planned later. 2. Urinary tract infection. Follow urine cultures. Rocephin. Urine culture from January 25 showed several types of organisms present, all high counts and repeat collection was recommended. Repeated UA and urine culture yesterday (01/27), UA does not show bacteria. Blood cultures negative. 3. Chronic decubitus ulcer. Home health changes dressings. 4. History of spina bifida, paraplegia, neurogenic bladder, wheelchair bound, lives alone in an apartment and has home health care. CM contacted, will make sure that home health agency aware of patient coming back home today. DVT prophylaxis, SCDs. Total Time Total Time Spent Total Time Spent (In Minutes): 40 Total Time Includes: Examination of the Patient, Discharge Planning, Medication Reconciliation and Communication With Other Providers Discharge Plan Discharge Items Patient Disposition: Home - Home Health Services Reason For Visit: LEFT FLANK PAIN Discharge Diagnosis: UTI, obstructing left ureteral stone Activity: Per Instructions section Non-emergency contact: Primary Care Provider and Urologist Call non-emergency contact if: you have any medication questions and your symptoms worsen Follow-up/Referrals: Apolinar Herrera DO [Primary Care Provider] - 02/02/20 10:40 am (02/02/2020 10:40 AM Provider Leonila Hamilton DO Department Family Practice [facility] ) Diet: Regular Addtl Attending Provider Instructions: Continue taking antibiotic as prescribed. For pain, recommend taking Tylenol 1000 mg 3 times a day. If your pain worsen, please contact Dr. Pinto from urology, or your primary care doctor. Dr. Pinto plans to do more urologic procedures, as you are aware, you will be contacted about upcoming appointments. If you do not hear from her office, pl ease contact the office. For constipation, recommend to take MiraLAX, which you can obtain [id number]. Pending Studies at Discharge: No Stand-Alone Forms: [facility], Smoking Cessation Medications and DC Order Prescriptions: New cefuroxime axetil 250 mg Tablet 250 mg PO BID 6 Days Qty: 12 RF: 0 Continued loratadine [Allergy Relief (loratadine)] 10 mg Tablet 10 mg PO DAILY PRN (Reason: Congestion) RF: 0 Discharge Orders: Discharge Order (Routine); Ordered 01/29/20 Ordered By: Harsh Garcia Admission Data Admit Date/Time: 01/27/20 00:33 Attending Provider: Harsh Garcia Admit Provider: Ezra Ruvalcaba Primary Care Provider: Apolinar Herrera Other Providers: Rosey Welch ; Ezra Ruvalcaba ; Juhi Pinto ; [place] ; [place],[facility]
== END 2020-01-29 14:00 | disposition home health service (06) | DRG 660 ==
LOC: ED 20:00 → SUATTDRO 01-27 00:33 → 2W 01-27 00:33

== ENCOUNTER 2022-02-03 04:43 | Inpatient (IN) ==
--- NOTE | 2022-02-03 05:00 | Emergency Department Note ---
History of Present Illness General Chief complaint: Urinary Symptoms Stated complaint: s/p SUPRAPUBIC CATH CHANGE/PAIN9/10 BLOOD URINE Time Seen by Provider: 02/03/22 04:48 History of Present Illness Maximum Pain Intensity: 9 66-year-old male with a history of a suprapubic urinary catheter presents via EMS reportedly had his catheter changed by home health nurse earlier today using a 24 Hungarian catheter without any difficulty. Patient states he is having suprapubic abdominal pain and decreased urine into the Little catheter bag. Patient denies any other complaints of nausea or vomiting. There are no other mitigating or alleviating factors. Patient is followed by Dr. Graves from urology; patient had a recent wound care evaluation 2 days ago for a grade 4 sacral decubitus is not currently on any antibiotics. Home Medications Medication Instructions Recorded Confirmed Type mirabegron 25 mg tablet,extended 25 mg PO DAILY 01/04/22 02/03/22 History release 24 hr (Myrbetriq) pantoprazole 40 mg tablet,delayed 40 mg PO DAILY 01/04/22 02/03/22 History release vitamin B complex 1 tab PO QAM 02/03/22 02/03/22 History Allergies Allergy/AdvReac Type Severity Reaction Status Date / Time iodine Allergy Intermediate A Verified 02/03/22 07:04 TEEN-SKIN CONTACT BURNED THE SKIN-FELT LIKE ON FIRE adhesive Allergy Mild ADHESIVE Verified 02/03/22 07:04 TAPE RIPS SKIN APART clindamycin Allergy Mild RASH Verified 02/03/22 07:04 Iodinated Contrast Media Allergy Mild NAUSEA Verified 02/03/22 07:04 Penicillins Allergy Mild HIVES-ITCHING,HAS Verified 02/03/22 07:04 TOLERATED ANCEF IN PAST pineapple Allergy Mild "TONGUE Verified 02/03/22 07:04 WALKER AND CRACKS" aspirin AdvReac Mild GI Verified 02/03/22 07:04 SENSITIVITY Past Med/Surg History Medical History Anxiety and depression Chronic back pain Chronic gum disease Colostomy hernia Colostomy in place Decubitus ulcer CHRONIC; FOLLOWS W/ WOUND CLINIC Deep vein thrombosis > 10 YEARS AGO - TREATED W/ BLOOD THINNERS - R/T IMMOBILITY Dysphagia Frequent UTI Hearing deficit RT EAR History of febrile seizure X 1; CHILDHOOD HTN (hypertension) IBS (irritable bowel syndrome) Kidney stones Neurogenic bladder Osteoarthritis Paraplegia Schatzki's ring Seasonal allergies Spina bifida SPINAL CLOSURE INFANT Tinnitus RT EAR Uses [place] catheter Wheelchair bound Surgical History 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 History of anesthesia reaction SLOW TO WAKE History of colonoscopy History of cystoscopy W/ STONE EXTRACTION History of esophageal dilatation History of esophagogastroduodenoscopy (EGD) History of exploratory laparotomy History of incisional hernia repair X3 History of lithotripsy History of sinus surgery History of surgery RT HIP WOUND DEBRIDEMENT W/ SKIN GRAFTING History of tooth extraction Status post myringotomy with insertion of tube Family History Other No family history of adverse response to anesthesia Social History Smoking Status: Never smoker Second Hand Exposure: No; Hx Alcohol Use: Yes Alcohol type: beer Hx Substance Use: No Preferred Language: Japanese Communication Ability: Effective Rn Surgical Pcu Required: No Beliefs That Will Affect Care: None Current Living Situation: Alone Feels Safe at Home: Yes Assistive Devices: Wheelchair Review of Systems A total of 10 systems reviewed and were otherwise negative Constitutional: no fever Gastrointestinal: + abdominal pain Genitourinary (Male): + decreased urination Physical Exam Vital Signs Vital Signs - 24 hr 02/03/22 04:38 02/03/22 05:48 02/03/22 05:50 Temperature 37.5 C Temperature Source Oral Pulse Rate 110 H 128 H 127 H Pulse Rate from SpO2 Sensor Respiratory Rate 18 22 28 H Respiratory Effort / Characteristics Non-Labored Respiratory Depth Normal Respiratory Pattern Regular Blood Pressure 153/80 H Blood Pressure Mean 104 Pulse Oximetry 99 Oxygen Delivery Method Room Air Sepsis Recent Fever Within 48 Hours No Sepsis New/Unexplained Change in Mental Status No Sepsis Action Taken by Nursing No Action Required 02/03/22 05:58 02/03/22 06:00 02/03/22 06:10 Temperature Temperature Source Pulse Rate 125 H 121 H 116 H Pulse Rate from SpO2 Sensor 123 H 118 H Respiratory Rate 24 22 20 Respiratory Effort / Characteristics Respiratory Depth Respiratory Pattern Blood Pressure 121/69 122/71 Blood Pressure Mean 86 88 Pulse Oximetry 94 96 Oxygen Delivery Method Sepsis Recent Fever Within 48 Hours Sepsis New/Unexplained Change in Mental Status Sepsis Action Taken by Nursing 02/03/22 06:15 02/03/22 06:20 02/03/22 06:31 Temperature Temperature Source Pulse Rate 121 H 118 H Pulse Rate from SpO2 Sensor 120 H 119 H Respiratory Rate 18 24 Respiratory Effort / Characteristics Non-Labored Spontaneous Respiratory Depth Respiratory Pattern Blood Pressure 132/72 Blood Pressure Mean 92 Pulse Oximetry 95 94 95 Oxygen Delivery Method Room Air Sepsis Recent Fever Within 48 Hours Sepsis New/Unexplained Change in Mental Status Sepsis Action Taken by Nursing 02/03/22 07:00 Temperature Temperature Source Pulse Rate 117 H Pulse Rate from SpO2 Sensor 117 H Respiratory Rate 25 H Respiratory Effort / Characteristics Non-Labored Spontaneous Respiratory Depth Respiratory Pattern Blood Pressure 118/70 Blood Pressure Mean 86 Pulse Oximetry 93 Oxygen Delivery Method Room Air Sepsis Recent Fever Within 48 Hours Sepsis New/Unexplained Change in Mental Status Sepsis Action Taken by Nursing VITAL SIGNS - Vital signs and nursing notes were reviewed. GENERAL - Ill appearing. Communicates well with provider and answers questions appropriately. SKIN - Decub ulcer in sacrum HEAD - NC/AT. EYES - PERRL with EOMI bilaterally. Sclera anicteric. Palpebral conjunctiva pink and moist with no injection noted. EARS - No deformities of external structures noted on gross examination bilaterally. NOSE - Midline and without cyanosis. No epistaxis or purulent drainage noted. Septum midline without deviation or septal hematoma noted. MOUTH/OROPHARYNX - Without perioral cyanosis. NECK - Neck with FROM. . LUNGS - Chest wall symmetric without accessory muscle use, intercostals retractions, or central cyanosis. Normal vesicular breath sounds CTA B/L. No wheezes, rales, or rhonchi appreciated. CARDIAC - Tachycardic with S1/S2. No murmur, rubs, or gallops appreciated. ABDOMEN - Abdominal contours soft without pulsations or visible masses. Suprapubic catheter is present; there is a colostomy bag present left lower quadrant; there is tenderness over the suprapubic region with palpation EXTREMITIES - No clubbing or peripheral cyanosis. No pretibial edema present. Patient has bilateral lower extremity flexion contractures NEUROLOGIC - Cranial nerves II through XII grossly intact. PSYCH - A&Ox3 and cooperates fully with examiner. Pt is very pleasant and interacts well with examiner. Procedures Catheter Insertion (Urinary) Patient has the following: other (suprapubic stoma) Prophylactic Antibiotics Given: No Bladder Scan/US before Catheterization: No Estimated amount of urine (mL): 500 Type of Catheter Inserted: 2 way and Little Catheter Hungarian Size: 24 Results: successfully catheterized-immediate flow and urine sent for UA/ C&S Patient Tolerated Procedure: no complications Complications: none Course Reevaluation(s) Reevaluation #1: Pt improved with nausea; started on IV fluids with 30ml/kg bolus for lactate > 4; wbc 14; suspect sepsis; pt not in septic shock on my exam; started on iv rocephin Time: 06:52 Consultations Consultation #1: DR Garrido for admit at 722am Administered Medications Sodium Chloride (Nss 1000ml) 2,400 mls @ 999 mls/hr IV .Q2H25M ONE Stop: 02/03/22 09:11 Last Admin: 02/03/22 07:14 Dose: 999 mls/hr Documented by: [id number] Discontinued Medications Ceftriaxone Sodium (Rocephin) 2,000 mg in 70 mls @ 140 mls/hr IV NOW STA Stop: 02/03/22 07:18 Last Admin: 02/03/22 07:10 Dose: 140 mls/hr Documented by: [id number] Morphine Sulfate (Morphine Sulfate 4 Mg/Ml 1 Ml Carp\\Vial) 4 mg IV NOW STA Stop: 02/03/22 06:04 Last Admin: 02/03/22 06:08 Dose: 4 mg Documented by: [id number] Ondansetron HCl (Ondansetron Inj 2 Mg/Ml 2 Ml Vial) 4 mg IV NOW STA Stop: 02/03/22 05:39 Last Admin: 02/03/22 05:53 Dose: 4 mg Documented by: [id number] Medical Decision Making Medical Records Attestation: I reviewed the patient's medical records. Laboratory Data Attestation: I reviewed the patient's lab results. Result diagrams: 02/03/22 05:56 02/03/22 05:56 Lab Results 02/03/22 02/03/22 02/03/22 Range/Units 05:46 05:56 05:56 WBC 14.16 H (4.8-10.8) K/uL RBC 5.34 (4.7-6.1) M/uL Hgb 14.8 (14.0-18.0) g/dL Hct 45.6 (42-52) % MCV 85.4 (80-100) fL MCH 27.7 (25-34) pg MCHC 32.5 (32-36) g/dL RDW Std Deviation 45.7 (36.4-46.3) fL RDW Coeff of Sebastian 14.7 H (11.5-14.5) % Plt Count 236 (130-400) K/uL MPV 9.0 (7.4-10.4) fL Immature Gran % (Auto) 0.4 % Neut % (Auto) 92.5 % Lymph % (Auto) 4.4 % O'Brien % (Auto) 1.3 % Eos % (Auto) 1.3 % Baso % (Auto) 0.1 % Neut # (Auto) 13.11 H (1.4-6.5) K/uL Lymph # (Auto) 0.62 L (1.2-3.4) K/uL O'Brien # (Auto) 0.19 (0.11-0.59) K/uL Eos # (Auto) 0.18 (0-0.5) K/uL Baso # (Auto) 0.01 (0-0.2) K/uL Immature Gran # (Auto) 0.05 H (0.00-0.02) K/uL PT 10.5 (9.0-12.0) Seconds INR 1.0 (0.9-1.1) APTT 26.2 (21.0-31.0) Seconds PTT Ratio 1.0 Sodium (136-145) mmol/L Potassium (3.5-5.1) mmol/L Chloride (98-107) mmol/L Carbon Dioxide (21-32) mmol/L Anion Gap (3-11) BUN (6-23) mg/dl Creatinine (0.6-1.4) mg/dl Est Cr Clr Drug Dosing ml/min Est GFR ( Amer) ml/min Est GFR (Non-Af Amer) ml/min BUN/Creatinine Ratio (10-20) Glucose (70-99(Fasting)) mg/dl Lactate (0.4-2.0) mmol/L Calcium (8.5-10.1) mg/dl Magnesium (1.7-2.4) mg/dl Total Bilirubin (0.2-1.0) mg/dl AST (13-39) U/L ALT (7-52) U/L Alkaline Phosphatase (34-104) U/L Total Protein (6.0-8.3) gm/dl Albumin (3.4-5.0) gm/dl Globulin (2.5-4.0) gm/dl Albumin/Globulin Ratio (0.9-2) Urine Color Urine Appearance (Clear) Urine pH (4.5-7.5) Ur Specific [place] (1.000-1.030) Urine Protein (Negative) Urine Glucose (UA) (Negative) Urine Ketones (Negative) Urine Blood (Negative) Urine Nitrite (Negative) Urine Bilirubin (Negative) Urine Urobilinogen (Negative) Ur Leukocyte Esterase (Negative) SARS-CoV-2, RNA, NAAT NEGATIVE (NEGATIVE) 02/03/22 02/03/22 02/03/22 Range/Units 05:56 05:56 06:00 WBC (4.8-10.8) K/uL RBC (4.7-6.1) M/uL Hgb (14.0-18.0) g/dL Hct (42-52) % MCV (80-100) fL MCH (25-34) pg MCHC (32-36) g/dL RDW Std Deviation (36.4-46.3) fL RDW Coeff of Sebastian (11.5-14.5) % Plt Count (130-400) K/uL MPV (7.4-10.4) fL Immature Gran % (Auto) % Neut % (Auto) % Lymph % (Auto) % O[place]Brien % (Auto) % Eos % (Auto) % Baso % (Auto) % Neut # (Auto) (1.4-6.5) K/uL Lymph # (Auto) (1.2-3.4) K/uL [place] # (Auto) (0.11-0.59) K/uL Eos # (Auto) (0-0.5) K/uL Baso # (Auto) (0-0.2) K/uL Immature Gran # (Auto) (0.00-0.02) K/uL PT (9.0-12.0) Seconds INR (0.9-1.1) APTT (21.0-31.0) Seconds PTT Ratio Sodium 138 (136-145) mmol/L Potassium 3.9 (3.5-5.1) mmol/L Chloride 102 (98-107) mmol/L Carbon Dioxide 25 (21-32) mmol/L Anion Gap 11 (3-11) BUN 11 (6-23) mg/dl Creatinine 0.75 (0.6-1.4) mg/dl Est Cr Clr Drug Dosing 88.8 ml/min Est GFR ( Amer) 109.2 ml/min Est GFR (Non-Af Amer) 94.3 ml/min BUN/Creatinine Ratio 14.7 (10-20) Glucose 116 H (70-99(Fasting)) mg/dl Lactate 4.1 H* (0.4-2.0) mmol/L Calcium 9.3 (8.5-10.1) mg/dl Magnesium 1.7 (1.7-2.4) mg/dl Total Bilirubin 0.8 (0.2-1.0) mg/dl AST 13 (13-39) U/L ALT 9 (7-52) U/L Alkaline Phosphatase 99 (34-104) U/L Total Protein 7.6 (6.0-8.3) gm/dl Albumin 4.1 (3.4-5.0) gm/dl Globulin 3.5 (2.5-4.0) gm/dl Albumin/Globulin Ratio 1.2 (0.9-2) Urine Color Delisa Urine Appearance Turbid A (Clear) Urine pH 6.5 (4.5-7.5) Ur Specific [place] >= 1.030 (1.000-1.030) Urine Protein 3+ H (Negative) Urine Glucose (UA) Negative (Negative) Urine Ketones Trace H (Negative) Urine Blood 3+ H (Negative) Urine Nitrite Positive A (Negative) Urine Bilirubin Negative (Negative) Urine Urobilinogen Negative (Negative) Ur Leukocyte Esterase 1+ H (Negative) SARS-CoV-2, RNA, NAAT (NEGATIVE) Imaging Data Attestation: I personally reviewed and interpreted this imaging study as follows: My Impression: CXR - poor inspiratory effort, no infiltrate Radiologist's Impression: Chest X-Ray 02/03/22 05:29 SINGLE VIEW CHEST CLINICAL HISTORY: Sepsis FINDINGS: An AP, portable, upright chest radiograph is compared to study dated 09/14/2019. The cardiomediastinal silhouette is unremarkable. There are low lung volumes with bibasilar atelectasis The lungs and pleural spaces are otherwise clear. No pneumothorax is seen. The bony thorax is grossly intact. IMPRESSION: No active disease in the chest. ACT 112: Negative or not required by law. Electronically signed by: Terrance Dugan M.D. 02/03/2022 6:55 AM ECG Data Attestation: I personally reviewed and interpreted this ECG as follows: Additional Comments: EG interpreted by me sinus tachycardia rate of 122 poor R wave progression the precordium poor baseline no obvious ST segment elevation or depression normal intervals normal axis MDM Narrative MDM - urinary retention, uti, sepsis, obstruction; Impression & Plan Obstructed Little catheter, Stage IV pressure ulcer of buttock, Sepsis, Acute UTI Discharge Plan Visit Data Chief Complaint: Urinary Symptoms Stated Complaint: s/p SUPRAPUBIC CATH CHANGE/PAIN/ BLOOD URINE ED Provider: Aiden Bassett Discharge Problem: Obstructed Little catheter, Stage IV pressure ulcer of buttock, Sepsis, Acute UTI Patient Disposition: Being Evaluated by Hospitalist Forms Stand Alone Forms: My [facility] Prescriptions Prescriptions: No Action pantoprazole 40 mg tablet,delayed release (DR/EC) 40 mg PO DAILY RF: 0 Myrbetriq 25 mg tablet extended release 24 hr 25 mg PO DAILY RF: 0 vitamin B complex Tablet 1 tab PO QAM RF: 0 Referrals Referrals: Apolinar Herrera DO [Primary Care Provider] -
[2022-02-03] MEDS ORDERED: ONDANSETRON INJ 2 MG/ML 2 ML VIAL IV STA (05:38)
[2022-02-03] MEDS ORDERED: MoRPHine SULFATE 4 MG/ML 1 ML CARP\\VIAL IV STA (06:03)
[2022-02-03 06:15] LABS: Basophils # (auto) 0.01 K/uL (0-0.2); Basophils % (auto) 0.1 %; Eosinophils # (auto) 0.18 K/uL (0-0.5); Eosinophils % (auto) 1.3 %; Hematocrit (blood only) 45.6 % (42-52); Hemoglobin 14.8 g/dL (14.0-18.0); Immature Granulocytes # (auto) 0.05 K/uL (0.00-0.02); Immature Granulocytes % (auto) 0.4 %; Lymphocytes # (auto) 0.62 K/uL (1.2-3.4); Lymphocytes % (auto) 4.4 %; Mean Corpuscular Hemoglobin 27.7 pg (25-34); Mean Corpuscular Hgb Conc 32.5 g/dL (32-36); Mean Corpuscular Volume 85.4 fL (80-100); Monocytes # (auto) 0.19 K/uL (0.11-0.59); Monocytes % (auto) 1.3 %; Neutrophils # (auto) 13.11 K/uL (1.4-6.5); Neutrophils % (auto) 92.5 %; Platelet Count 236 K/uL (130-400); RDW Coefficient of Variation 14.7 % (11.5-14.5); RDW Standard Deviation 45.7 fL (36.4-46.3); Red Blood Count 5.34 M/uL (4.7-6.1); White Blood Count 14.16 K/uL (4.8-10.8)
[2022-02-03 06:26] LABS: Partial Thromboplastin Time 26.2 Seconds (21.0-31.0); Prothrombin Time 10.5 Seconds (9.0-12.0)
[2022-02-03 06:39] LABS: Albumin Globulin Ratio 1.2 (0.9-2); Albumin Level 4.1 gm/dl (3.4-5.0); BUN Creatinine Ratio 14.7 (10-20); Bilirubin,Total 0.8 mg/dl (0.2-1.0); Calcium 9.3 mg/dl (8.5-10.1); Creatinine Clr Calc Pharmacy 88.8 ml/min; Est GFR (African American) 109.2 ml/min; Est GFR (Non-African American) 94.3 ml/min; Globulin 3.5 gm/dl (2.5-4.0); Magnesium 1.7 mg/dl (1.7-2.4); Potassium 3.9 mmol/L (3.5-5.1); Total Protein 7.6 gm/dl (6.0-8.3)
[2022-02-03] MEDS ORDERED: SODIUM CHLORIDE 0.9% 1000ML 2,400 ML IV ONE (06:47)
[2022-02-03 06:49] LABS: Appearance Urine Turbid (Clear); Bilirubin Urine Negative (Negative); Blood Urine 3+ (Negative); Color Urine Amber; Glucose Urine UA Negative (Negative); Ketones Urine Trace (Negative); Leukocyte Esterase Urine 1+ (Negative); Nitrite Urine Positive (Negative); Protein Urine 3+ (Negative); Specific Gravity Urine >= 1.030 (1.000-1.030); Urobilinogen Urine Negative (Negative); pH Urine 6.5 (4.5-7.5)
[2022-02-03] MEDS ORDERED: cefTRIAXone SODIUM 2,000 MG/70 ML BAG IV STA (06:49)
--- NOTE | 2022-02-03 06:56 | XRay Report ---
SINGLE VIEW CHEST CLINICAL HISTORY: Sepsis FINDINGS: An AP, portable, upright chest radiograph is compared to study dated 09/14/2019. The cardiome diastinal silhouette is unremarkable. There are low lung volumes with bibasilar atelectasis The lungs and pleural spaces are otherwise clear. No pneumothorax is seen. The bony thorax is grossly intact. IMPRESSION: No active disease in the chest. ACT 112: Negative or not required by law. Electronically signed by: Terrance Dugan M.D. 02/03/2022 6:55 AM
[2022-02-03 07:22] LABS: Epithelial Cell Urine 0-5 /lpf (0-5); RBC Urine >30 /hpf (0-4); WBC Urine >30 /hpf (0-5)
[2022-02-03 07:23] LABS: Bacteria Urine 1+ (Negative)
--- NOTE | 2022-02-03 08:22 | History & Physical Report ---
Date of Service February 03, 2022 Assessment & Plan (1) Sepsis: Plan: Admitted with decreased urine output through suprapubic catheter with discomfort and nausea and fever UA suggestive of infection White count is elevated to 14,000 and tachycardic otherwise hemodynamically stable Blood and urine cultures were taken Started with intravenous ceftriaxone and will be continued as previous UA showed organisms susceptible to cephalosporins Received adequate intravenous fluid Will check repeat lactate (2) Acute UTI: Plan: Status post suprapubic catheter insertion due to paraplegia about 4 months ago Decreased but suprapubic output recently and a difficult change of catheter by the health care nurse at home ER physician replaced the catheter easily and it is draining now If any ongoing issues will need to consult urologist Await culture and sensitivity (3) Paraplegia: Plan: Secondary to spina bifida as a child Still managing himself at home and getting out of bed and is moving around with wheelchair Has had home health nurse coming 3 times a week (4) Spina bifida: (5) Sacral decubitus ulcer: Plan: We will get wound care nurse involved Staging will be done accordingly DVT prophylax Subcu Lovenox CODE STATUS Full History of Present Illness Chief Complaint: Suprapubic discomfort with decreased urine output and fever and nausea since this morning Primary Care Provider: Apolinar Herrera, DO Is a 66-year-old male with significant past medical history including paraplegia secondary to complicated spina bifida with neurogenic bladder status post suprapubic catheter, chronic sacral decubiti, GERD, and iron deficiency anemia apparently has been complaining of passing of less urine through the Little for about 1 day and having problem with suprapubic discomfort associated with nausea and fever since this morning. He has had his catheter changed by the home health nurse this morning without much drainage and with above symptoms he was brought into the emergency room for evaluation. He denies any significant pain, any shortness of breath, any problem with his bowel habit and he does not feel any more weakness than before. He started to have sweating in the emergency room and he remained hemodynamically stable and noted to have tachycardia in the emergency room. The suprapubic catheter was replaced easily by the ER physician and the UA did show possible infection and his white count was elevated to 14,000 with elevation of lactate of 4.1. He was a started with intravenous ceftriaxone after taking blood and urine culture and given adequate amount of intravenous fluid. He was admitted to medical telemetry unit for continuation of care He has been paraplegic secondary to spina bifida. He lives alone but can manage himself and getting out of bed and moving around with a wheelchair. He has home health nurse comes 3 times a week who changes his dressing in the sacral area. Allergies Allergy/AdvReac Type Severity Reaction Status Date / Time iodine Allergy Intermediate A Verified 02/03/22 07:04 TEEN-SKIN CONTACT BURNED THE SKIN-FELT LIKE ON FIRE adhesive Allergy Mild ADHESIVE Verified 02/03/22 07:04 TAPE RIPS SKIN APART clindamycin Allergy Mild RASH Verified 02/03/22 07:04 Iodinated Contrast Media Allergy Mild NAUSEA Verified 02/03/22 07:04 Penicillins Allergy Mild HIVES-ITCHING,HAS Verified 02/03/22 07:04 TOLERATED ANCEF IN PAST pineapple Allergy Mild "TONGUE Verified 02/03/22 07:04 WALKER AND CRACKS" aspirin AdvReac Mild GI Verified 02/03/22 07:04 SENSITIVITY Home Medications Medication Instructions Recorded Confirmed Type mirabegron 25 mg tablet,extended 25 mg PO QAM 01/04/22 02/03/22 History release 24 hr (Myrbetriq) pantoprazole 40 mg tablet,delayed 40 mg PO QAM 01/04/22 02/03/22 History release vitamin B complex 1 tab PO QAM 02/03/22 02/03/22 History Past Med/Surg History Medical History Anxiety and depression Chronic back pain Chronic gum disease Colostomy hernia Colostomy in place Decubitus ulcer CHRONIC; FOLLOWS W/ WOUND CLINIC Deep vein thrombosis > 10 YEARS AGO - TREATED W/ BLOOD THINNERS - R/T IMMOBILITY Dysphagia Frequent UTI Hearing deficit RT EAR History of febrile seizure X 1; CHILDHOOD HTN (hypertension) IBS (irritable bowel syndrome) Kidney stones Neurogenic bladder Osteoarthritis Paraplegia Schatzki's ring Seasonal allergies Spina bifida SPINAL CLOSURE Tinnitus RT EAR Uses [place] catheter Wheelchair bound Surgical History 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 History of anesthesia reaction SLOW TO WAKE History of colonoscopy History of cystoscopy W/ STONE EXTRACTION History of esophageal dilatation History of esophagogastroduodenoscopy (EGD) History of exploratory laparotomy History of incisional hernia repair X3 History of lithotripsy History of sinus surgery History of surgery RT HIP WOUND DEBRIDEMENT W/ SKIN GRAFTING History of tooth extraction Status post myringotomy with insertion of tube Family History Other No family history of adverse response to anesthesia Social History Smoking Status: Never smoker Second Hand Exposure: No; Hx Alcohol Use: Yes Alcohol type: beer Hx Substance Use: No Preferred Language: [place]aguayan Communication Ability: Effective Wood Box Maker Required: No Beliefs That Will Affect Care: None Current Living Situation: Alone Feels Safe at Home: Yes Assistive Devices: Wheelchair Review of Systems Review of Systems: All systems reviewed and are unremarkable except as noted below Physical Exam Physical Exam: Lying in bed comfortably Constitutional: well developed, well nourished, + ill appearing and + obese Eyes: PERRL, conjunctivae normal, anicteric sclerae ENMT: external ear and nose normal, oropharynx normal Neck: trachea midline, no thyromegaly Respiratory: no respiratory distress Auscultation: lungs clear to auscultation bilaterally Cardiovascular: Rate/Rhythm: regular rate, regular rhythm and + tachycardic Heart Sounds: normal S1 and normal S2; no murmur Extremities: + edema (Bilateral) Gastrointestinal (Abdomen): Inspection/Auscultation: normal bowel sounds; abdomen not distended Percussion/Palpation: abdomen soft; abdomen nontender Suprapubic catheter Musculoskeletal: Flexural deformities involving the lower extremities especially below the knees Neurologic: Lasix since childhood secondary spina bifida. No sensation below the knees and cannot move the lower extremities at all Lymphatic: no cervical or axillary lymphadenopathy Results & Data Results & Data ([facility]) Vital Signs (Past 12 Hours) Vital Signs Temp Pulse Resp BP Pulse Ox 02/03/22 07:30 113 H 24 131/68 93 02/03/22 07:00 117 H 25 H 118/70 93 02/03/22 06:31 95 02/03/22 06:20 118 H 24 94 02/03/22 06:15 121 H 18 132/72 95 02/03/22 06:10 116 H 20 96 02/03/22 06:00 121 H 22 122/71 94 02/03/22 05:58 125 H 24 121/69 02/03/22 05:50 127 H 28 H 02/03/22 05:48 128 H 22 02/03/22 04:38 37.5 C 110 H 18 153/80 H 99 Laboratory Results Short CBC 02/03/22 Range/Units 05:56 WBC 14.16 H (4.8-10.8) K/uL Hgb 14.8 (14.0-18.0) g/dL Hct 45.6 (42-52) % Plt Count 236 (130-400) K/uL BMP 02/03/22 05:56 Sodium 138 Potassium 3.9 Chloride 102 Carbon Dioxide 25 BUN 11 Creatinine 0.75 Glucose 116 H Calcium 9.3 Liver Function 02/03/22 Range/Units 05:56 Total Bilirubin 0.8 (0.2-1.0) mg/dl AST 13 (13-39) U/L ALT 9 (7-52) U/L Alkaline Phosphatase 99 (34-104) U/L Albumin 4.1 (3.4-5.0) gm/dl Urine 02/03/22 Range/Units 06:00 Urine Color Delisa Urine Appearance Turbid A (Clear) Urine pH 6.5 (4.5-7.5) Ur Specific [place] >= 1.030 (1.000-1.030) Urine Protein 3+ H (Negative) Urine Glucose (UA) Negative (Negative) Medications Administered Current Inpatient Medications Enoxaparin Sodium (Enoxaparin Inj 40 Mg/0.4 Ml Syr) 40 mg SQ QAM LESLI Stop: 03/05/22 08:59 Sodium Chloride (Nss 1000ml) 2,400 mls @ 999 mls/hr IV .Q2H25M ONE Stop: 02/03/22 09:11 Last Admin: 02/03/22 07:14 Dose: 999 mls/hr Documented by: Ceftriaxone Sodium (Rocephin) 2,000 mg in 70 mls @ 140 mls/hr IV DAILY [facility] Stop: 02/13/22 08:59 (1) Sepsis Sepsis acute organ dysfunction status: unspecified Sepsis type: sepsis due to unspecified organism Qualified Code(s): A41.9 - Sepsis, unspecified organism
[2022-02-03] MEDS ORDERED: ACETAMINOPHEN 500 MG TAB PO PRN (08:49)
[2022-02-03] MEDS ORDERED: ONDANSETRON INJ 2 MG/ML 2 ML VIAL IV PRN (08:49)
[2022-02-03] MEDS ORDERED: cefTRIAXone SODIUM 2,000 MG/70 ML BAG IV SCH (09:00)
--- NOTE | 2022-02-03 09:32 | Electrocardiogram Report ---
Test Reason : Blood Pressure : / mmHG Vent. Rate : 122 BPM Atrial Rate : 122 BPM P-R Int : 136 ms QRS Dur : 068 ms QT Int : 308 ms P-R-T Axes : 032 -16 057 degrees QTc Int : 438 ms Poor data quality, interpretation may be adversely affected Sinus tachycardia Left atrial enlargement ST depression in Anterolateral leads , consider ischemia Abnormal ECG When compared with ECG of 14-SEP-2019 10:51, HR has increased by 50 bpm Otherwise no significant change Confirmed by Keith Jaquez ([id number]) on 02/03/2022 9:32:24 AM Referred By: Confirmed By:Keith Jaquez
[2022-02-03] MEDS: PANTOprazole 40 MG TAB PO SCH (13:22)
[2022-02-03] MEDS: ENOXAPARIN INJ 40 MG/0.4 ML SYR SQ SCH (13:22)
[2022-02-03] MEDS: MIRABEGRON ER 25 MG TAB PO SCH (13:22)
[2022-02-04] MEDS ORDERED: CETIRIZINE HCL 10 MG TABLET PO ONE (04:53)
[2022-02-04] MEDS: cefTRIAXone SODIUM 2,000 MG in DEXTROSE 5% 50 ML IV SCH (08:32)
[2022-02-04] MEDS: MIRABEGRON ER 25 MG TAB PO SCH (08:32)
[2022-02-04] MEDS: ENOXAPARIN INJ 40 MG/0.4 ML SYR SQ SCH (08:32)
[2022-02-04] MEDS: VITAMIN B COMPLEX TAB PO SCH (08:32)
[2022-02-04] MEDS: PANTOprazole 40 MG TAB PO SCH (08:32)
[2022-02-04] MEDS ORDERED: cefTRIAXone SODIUM 2,000 MG/70 ML BAG IV SCH (09:00)
--- NOTE | 2022-02-04 14:15 | Hospitalist Progress Note ---
Date of Service February 04, 2022 Assessment & Plan (1) Sepsis: Plan: Admitted with decreased urine output through suprapubic catheter with discomfort and nausea and fever UA suggestive of infection White count is elevated to 14,000 and tachycardic otherwise hemodynamically stable Blood and urine cultures were taken Started with intravenous ceftriaxone and will be continued as previous UA showed organisms susceptible to cephalosporins Received adequate intravenous fluid Will check repeat lactate-normalized No fever and or chills and clinically much better Bacteremia Blood cultures 2 out of 2 positive for gram-negative bacilli and gram-positive cocci in chain We will continue current antibiotic and await sensitivity since the patient has been improving May need to get an ID consult down the line (2) Acute UTI: Plan: Status post suprapubic catheter insertion due to paraplegia about 4 months ago Decreased but suprapubic output recently and a difficult change of catheter by the health care nurse at home ER physician replaced the catheter easily and it is draining now If any ongoing issues will need to consult urologist Await culture and sensitivity-3 types of growth in the urine and a repeat collection has been advised (3) Paraplegia: Plan: Secondary to spina bifida as a child Still managing himself at home and getting out of bed and is moving around with wheelchair Has had home health nurse coming 3 times a week (4) Spina bifida: (5) Sacral decubitus ulcer: Plan: We will get wound care nurse involved Staging will be done accordingly Wound dressing was done on the day of admission-no drainage and no pain and no evidence of infection as per the patient DVT prophylax Subcu Lovenox CODE STATUS Full Admission and Anticipated Discharge Date Admission Date: February 03, 2022 Subjective 02/04/2022 The patient was seen and examined in telemetry unit He has been feeling much better since admission No fever and no chills, no cough and/or phlegm, no pain in the sacral area She was wondering if he could go home Review of Systems Review of Systems: All systems reviewed and are unremarkable except as noted below Physical Exam Physical Exam: Lying in bed comfortably Constitutional: well developed, well nourished, + ill appearing and + obese Eyes: PERRL, conjunctivae normal, anicteric sclerae ENMT: external ear and nose normal, oropharynx normal Neck: trachea midline, no thyromegaly Respiratory: no respiratory distress Auscultation: lungs clear to auscultation bilaterally Cardiovascular: Rate/Rhythm: regular rate, regular rhythm and + tachycardic Heart Sounds: normal S1 and normal S2; no murmur Extremities: + edema (Bilateral) Gastrointestinal (Abdomen): Inspection/Auscultation: normal bowel sounds; abdomen not distended Percussion/Palpation: abdomen soft; abdomen nontender Musculoskeletal: Has flexural deformities in the lower extremities secondary to paraplegia Neurologic: Alert, awake and oriented x3. Paraplegic since child with neurogenic bladder and is status post cystostomy Psychiatric: A+Ox3, euthymic affect Lymphatic: no cervical or axillary lymphadenopathy Results & Data Results & Data ([facility]) Vital Signs (Past 12 Hours) Vital Signs Temp Pulse Pulse Resp BP Pulse Ox 02/04/22 12:16 37.4 C 88 20 106/60 95 02/04/22 11:49 86 02/04/22 08:15 37.2 C 87 18 113/68 95 02/04/22 03:27 37.0 C 96 H 18 110/67 95 Medications Administered Current Inpatient Medications Acetaminophen (Acetaminophen 500 Mg Tab) 1,000 mg PO Q6H PRN PRN Reason: Fever or headache Stop: 03/05/22 08:59 Ascorbic Acid (Ascorbic Acid 500 Mg Tab) [facility] [place] Stop: 03/07/22 08:59 Enoxaparin Sodium (Enoxaparin Inj 40 Mg/0.4 Ml Syr) 40 mg SQ QAM [facility] Stop: 03/05/22 12:59 Last Admin: 02/04/22 08:32 Dose: 40 mg Documented by: Ceftriaxone Sodium 2,000 mg/ (Dextrose) 70 mls @ 140 mls/hr IV DAILY [facility] Stop: 02/14/22 08:59 Last Infusion: 02/04/22 09:06 Dose: Infused Documented by: Mirabegron (Mirabegron Er 25 Mg Tab) 25 mg PO QAM [facility] Stop: 03/05/22 12:00 Last Admin: 02/04/22 08:32 Dose: 25 mg Documented by: Ondansetron HCl (Ondansetron Inj 2 Mg/Ml 2 Ml Vial) 4 mg IV Q6H PRN PRN Reason: Nausea And Vomiting Stop: 03/05/22 08:59 Pantoprazole Sodium (Pantoprazole 40 Mg Tab) 40 mg PO QAM [facility] Stop: 03/05/22 12:00 Last Admin: 02/04/22 08:32 Dose: 40 mg Documented by: Vitamin B Complex (Vitamin B Complex Tab) 1 tab PO QAM [facility] Stop: 03/06/22 08:59 Last Admin: 02/04/22 08:32 Dose: 1 tab Documented by: (1) Sepsis Sepsis acute organ dysfunction status: unspecified Sepsis type: sepsis due to unspecified organism Qualified Code(s): A41.9 - Sepsis, unspecified organism
[2022-02-05 06:45] LABS: Basophils # (auto) 0.01 K/uL (0-0.2); Basophils % (auto) 0.2 %; Eosinophils % (auto) 6.7 %; Hematocrit (blood only) 38.7 % (42-52); Hemoglobin 12.4 g/dL (14.0-18.0); Immature Granulocytes # (auto) 0.04 K/uL (0.00-0.02); Immature Granulocytes % (auto) 0.7 %; Lymphocytes # (auto) 1.25 K/uL (1.2-3.4); Mean Corpuscular Volume 84.3 fL (80-100); Mean Platelet Volume 8.8 fL (7.4-10.4); Monocytes # (auto) 0.65 K/uL (0.11-0.59); Monocytes % (auto) 10.9 %; Neutrophils # (auto) 3.59 K/uL (1.4-6.5); Neutrophils % (auto) 60.5 %; Platelet Count 188 K/uL (130-400); RDW Coefficient of Variation 14.7 % (11.5-14.5); RDW Standard Deviation 45.8 fL (36.4-46.3); Red Blood Count 4.59 M/uL (4.7-6.1); White Blood Count 5.94 K/uL (4.8-10.8)
[2022-02-05 07:16] LABS: Albumin Globulin Ratio 1.1 (0.9-2); Albumin Level 3.1 gm/dl (3.4-5.0); BUN Creatinine Ratio 19.7 (10-20); Bilirubin,Total 0.3 mg/dl (0.2-1.0); Calcium 8.5 mg/dl (8.5-10.1); Creatinine Clr Calc Pharmacy 110.1 ml/min; Est GFR (African American) 118.9 ml/min; Est GFR (Non-African American) 102.6 ml/min; Globulin 2.9 gm/dl (2.5-4.0); Potassium 3.4 mmol/L (3.5-5.1)
[2022-02-05] MEDS ORDERED: POTASSIUM CHLORIDE CRTAB 20 MEQ TABCR PO STA (08:08)
[2022-02-05] MEDS: PANTOprazole 40 MG TAB PO SCH (08:40)
[2022-02-05] MEDS: ASCORBIC ACID 500 MG TAB PO SCH (08:41)
[2022-02-05] MEDS: ENOXAPARIN INJ 40 MG/0.4 ML SYR SQ SCH (08:41)
[2022-02-05] MEDS: VITAMIN B COMPLEX TAB PO SCH (08:41)
[2022-02-05] MEDS: MIRABEGRON ER 25 MG TAB PO SCH (08:41)
[2022-02-05] MEDS: cefTRIAXone SODIUM 2,000 MG in DEXTROSE 5% 50 ML IV SCH (08:51)
[2022-02-05] MEDS: POTASSIUM CHLORIDE / WTR 10 MEQ/100 ML PLCT IV SCH ×3 (11:37→12:09)
--- NOTE | 2022-02-05 14:45 | Hospitalist Progress Note ---
Date of Service February 05, 2022 Assessment & Plan (1) Sepsis: Plan: Admitted with decreased urine output through suprapubic catheter with discomfort and nausea and fever UA suggestive of infection White count is elevated to 14,000 and tachycardic otherwise hemodynamically stable Blood and urine cultures were taken Started with intravenous ceftriaxone and will be continued as previous UA showed organisms susceptible to cephalosporins Received adequate intravenous fluid Will check repeat lactate-normalized No fever and or chills and clinically much better White count has been normalized and no signs and or symptoms of infection Bacteremia Blood cultures 2 out of 2 positive for gram-negative bacilli and gram-positive cocci in chain We will continue current antibiotic and await sensitivity since the patient has been improving May need to get an ID consult down the line Echo has been ordered Await ID input and sensitivity report Sacral decubiti Examined today About 2 x 2 square centimeter opening without any drainage, infection or inflammation around the lesion and the wound seems to be dry Do not think this is the source of any bacteremia at this time Awaiting wound care nurse evaluation Colostomy status Colostomy site is intact Patient does not pass any stool in natural way (2) Acute UTI: Plan: Status post suprapubic catheter insertion due to paraplegia about 4 months ago Decreased but suprapubic output recently and a difficult change of catheter by the health care nurse at home ER physician replaced the catheter easily and it is draining now If any ongoing issues will need to consult urologist Await culture and sensitivity-3 types of growth in the urine and a repeat collection has been advised (3) Paraplegia: Plan: Secondary to spina bifida as a child Still managing himself at home and getting out of bed and is moving around with wheelchair Has had home health nurse coming 3 times a week (4) Spina bifida: (5) Sacral decubitus ulcer: Plan: We will get wound care nurse involved Staging will be done accordingly Wound dressing was done on the day of admission-no drainage and no pain and no evidence of infection as per the patient DVT prophylax Subcu Lovenox CODE STATUS Full Admission and Anticipated Discharge Date Admission Date: February 03, 2022 Subjective 02/04/2022 The patient was seen and examined in telemetry unit He has been feeling much better since admission No fever and no chills, no cough and/or phlegm, no pain in the sacral area She was wondering if he could go home 02/05/2022 Patient was seen and examined in telemetry unit He remains stable without any significant symptoms Denies any fever and or chills He is worried that he cannot go home today Review of Systems Review of Systems: All systems reviewed and are unremarkable except as noted below Physical Exam Physical Exam: Lying in bed comfortably Constitutional: well developed, well nourished, + ill appearing and + obese Eyes: PERRL, conjunctivae normal, anicteric sclerae ENMT: external ear and nose normal, oropharynx normal Neck: trachea midline, no thyromegaly Respiratory: no respiratory distress Auscultation: lungs clear to auscultation bilaterally Cardiovascular: Rate/Rhythm: regular rate, regular rhythm and + tachycardic Heart Sounds: normal S1 and normal S2; no murmur Extremities: + edema (Bilateral) Gastrointestinal (Abdomen): Inspection/Auscultation: normal bowel sounds; abdomen not distended Percussion/Palpation: abdomen soft; abdomen nontender Colostomy site is intact and cystotomy site is intact Musculoskeletal: No acute arthritis in any joint Skin: Sacral wound examined-no evidence of surrounding redness and/or i nflammation, seems to be at least stage II without any drainage with a small opening and no localized tenderness Neurologic: Alert, awake and oriented x3. Has paraplegia with significant flexural deformities involving the lower extremities Psychiatric: A+Ox3, euthymic affect Lymphatic: no cervical or axillary lymphadenopathy Results & Data Results & Data ([facility]) Vital Signs (Past 12 Hours) Vital Signs Temp Pulse Pulse Resp BP BP Pulse Ox 02/05/22 12:04 36.7 C 79 18 130/81 95 02/05/22 08:25 36.5 C 78 18 117/76 96 02/05/22 08:00 77 02/05/22 04:00 37.1 C 71 18 125/72 98 Laboratory Results Short CBC 02/05/22 Range/Units 06:24 WBC 5.94 (4.8-10.8) K/uL Hgb 12.4 L (14.0-18.0) g/dL Hct 38.7 L (42-52) % Plt Count 188 (130-400) K/uL BMP 02/05/22 06:24 Sodium 138 Potassium 3.4 L Chloride 105 Carbon Dioxide 27 BUN 12 Creatinine 0.61 Glucose 103 H Calcium 8.5 Liver Function 02/05/22 Range/Units 06:24 Total Bilirubin 0.3 (0.2-1.0) mg/dl AST 14 (13-39) U/L ALT 10 (7-52) U/L Alkaline Phosphatase 61 (34-104) U/L Albumin 3.1 L (3.4-5.0) gm/dl Medications Administered Current Inpatient Medications Acetaminophen (Acetaminophen 500 Mg Tab) 1,000 mg PO Q6H PRN PRN Reason: Fever or headache Stop: 03/05/22 08:59 Ascorbic Acid (Ascorbic Acid 500 Mg Tab) [address] [facility] Stop: 03/07/22 08:59 Last Admin: 02/05/22 08:41 Dose: 500 mg Documented by: Enoxaparin Sodium (Enoxaparin Inj 40 Mg/0.4 Ml Syr) [address] [facility] Stop: 03/05/22 12:59 Last Admin: 02/05/22 08:41 Dose: 40 mg Documented by: Ceftriaxone Sodium 2,000 mg/ (Dextrose) 70 mls @ 140 mls/hr IV DAILY [facility] Stop: 02/14/22 08:59 Last Infusion: 02/05/22 09:21 Dose: Infused Documented by: Mirabegron (Mirabegron Er 25 Mg Tab) [address] [facility] Stop: 03/05/22 12:00 Last Admin: 02/05/22 08:41 Dose: 25 mg Documented by: Ondansetron HCl (Ondansetron Inj 2 Mg/Ml 2 Ml Vial) 4 mg IV Q6H PRN PRN Reason: Nausea And Vomiting Stop: 03/05/22 08:59 Pantoprazole Sodium (Pantoprazole 40 Mg Tab) [address] [facility] Stop: 03/05/22 12:00 Last Admin: 02/05/22 08:40 Dose: 40 mg Documented by: Vitamin B Complex (Vitamin B Complex Tab) [address] [facility] Stop: 03/06/22 08:59 Last Admin: 02/05/22 08:41 Dose: 1 tab Documented by: (1) Sepsis Sepsis acute organ dysfunction status: unspecified Sepsis type: sepsis due to unspecified organism Qualified Code(s): A41.9 - Sepsis, unspecified organism
[2022-02-05] MEDS: POLYETHYLENE (MIRALAX) 17 GM PACK PO SCH (17:36)
[2022-02-06 08:17] LABS: Basophils # (auto) 0.01 K/uL (0-0.2); Basophils % (auto) 0.2 %; Eosinophils # (auto) 0.44 K/uL (0-0.5); Eosinophils % (auto) 9.2 %; Hematocrit (blood only) 41.2 % (42-52); Hemoglobin 13.7 g/dL (14.0-18.0); Immature Granulocytes # (auto) 0.02 K/uL (0.00-0.02); Immature Granulocytes % (auto) 0.4 %; Lymphocytes # (auto) 1.29 K/uL (1.2-3.4); Lymphocytes % (auto) 26.9 %; Mean Corpuscular Hgb Conc 33.3 g/dL (32-36); Mean Corpuscular Volume 84.3 fL (80-100); Monocytes # (auto) 0.48 K/uL (0.11-0.59); Neutrophils # (auto) 2.56 K/uL (1.4-6.5); Neutrophils % (auto) 53.3 %; Platelet Count 213 K/uL (130-400); RDW Coefficient of Variation 14.3 % (11.5-14.5); RDW Standard Deviation 44.5 fL (36.4-46.3); Red Blood Count 4.89 M/uL (4.7-6.1)
[2022-02-06] MEDS: cefTRIAXone SODIUM 2,000 MG in DEXTROSE 5% 50 ML IV SCH (09:00)
[2022-02-06] MEDS: ASCORBIC ACID 500 MG TAB PO SCH (09:01)
[2022-02-06] MEDS: MIRABEGRON ER 25 MG TAB PO SCH (09:01)
[2022-02-06] MEDS: VITAMIN B COMPLEX TAB PO SCH (09:01)
[2022-02-06] MEDS: PANTOprazole 40 MG TAB PO SCH (09:02)
[2022-02-06] MEDS: ENOXAPARIN INJ 40 MG/0.4 ML SYR SQ SCH (09:02)
[2022-02-06] MEDS: POLYETHYLENE (MIRALAX) 17 GM PACK PO SCH ×2 (09:02→09:04)
[2022-02-06 09:56] LABS: BUN Creatinine Ratio 20.7 (10-20); Creatinine Clr Calc Pharmacy 116.4 ml/min; Est GFR (African American) 121.4 ml/min; Est GFR (Non-African American) 104.8 ml/min; Potassium 3.8 mmol/L (3.5-5.1)
[2022-02-06] MEDS: CEFEPIME 2,000 MG in SYRINGE 0 ML IV SCH ×2 (11:28→20:19)
[2022-02-06] MEDS ORDERED: VANCOMYCIN HCL 1,000 MG in SODIUM CHLORIDE 0.9% 250 ML IV STA (18:15)
[2022-02-06] MEDS ORDERED: VANCOMYCIN CONSULT ACTIVE PRN (18:15)
--- NOTE | 2022-02-06 18:56 | Hospitalist Progress Note ---
Date of Service February 06, 2022 Assessment & Plan (1) Sepsis: Plan: Admitted with decreased urine output through suprapubic catheter with discomfort and nausea and fever UA suggestive of infection-subsequent urine culture grew 3 types of organisms, while with high counts. White count is elevated to 14,000 and tachycardic otherwise hemodynamically stable Blood blood cultures grew multiple organisms as below Started with intravenous ceftriaxone and will be continued as previous UA showed organisms susceptible to cephalosporins Received adequate intravenous fluid Will check repeat lactate-normalized No fever and or chills and clinically much better White count has been normalized and no signs and or symptoms of infection Antibiotic were changed to intravenous cefepime in the morning of 02/06/2022 as per the sensitivity and also intravenous vancomycin was added this afternoon after the report of the sensitivity Bacteremia-source could be sacral decubiti ulcer and is complicated by suprapubic catheter Blood cultures 2 out of 2 positive for gram-negative bacilli and gram-positive cocci in chain We will continue current antibiotic and await sensitivity since the patient has been improving Blood culture grew Enterococcus faecalis, Morganella morganii, and gram-negative bacilli-sensitivities of all of the organisms but 1 pending Antibiotics have changed to intravenous cefepime and vancomycin added as above Echo has been ordered-no vegetation seen TTE Await ID input and sensitivity report Sacral decubiti-please see the wound picture for an idea of the wound Sacral decubiti stage IV and the outpatient wound care note as of of this month showed: (1) Stage IV pressure ulcer of buttock: Chronic stage 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 The wound did not require debridement. I did review the patient's MRI report with him. He does have outpatient follow-up scheduled at [facility] with the colorectal surgeon. This however is not to March 02. He is not exhibiting any signs of systemic infection or findings on exam of a "hot" perianal abscess. He has not had a colonoscopy. I am unsure if this would be beneficial to do prior to his evaluation with the colorectal surgery. I will reach out to his PCP to discuss. I have explained to the patient that this wound will most likely need to be opened and aggressive wound management will need to follow. Patient will return for recheck in 2 weeks. He is to go directly to the ED if he develops worsening pain, fever or if it is noted, with dressing changes, that he has increasing redness/cellulitic changes to the area. Patient is comfortable with these recommendations. He is to continue offloading I encouraged him to increase the amount of protein in his diet. Regarding his hypokalemia he states he has had follow-up with the PA at his PCPs office. Follow-up in2 weeks. (2) Perineal abscess:(3) Perirectal fistula: MRI that was done as an outpatient recently showed: IMPRESSION: 1. No MR evidence for osteomyelitis. 2. Extensive soft tissue ulceration is seen posterior to the right hip and ischial pubic ramus with no extension to the underlying bone. 3. However, there is evidence for a fistula tract seen centrally, posteriorly extending to the posterior wall of the rectum. 4. Additional thick-walled enhancing abscess adjacent to the anus and extending to the perineum. The bacteremia could be secondary to disseminated infection from the wound and is complicated by suprapubic catheter as urinary source Further recommendation as per ID Colostomy status Colostomy site is intact Patient does not pass any stool in natural way (2) Acute UTI: Plan: Status post suprapubic catheter insertion due to paraplegia about 4 months ago Decreased but suprapubic output recently and a difficult change of catheter by the health care nurse at home ER physician replaced the catheter easily and it is draining now If any ongoing issues will need to consult urologist Await culture and sensitivity-3 types of growth in the urine and a repeat collection has been advised (3) Paraplegia: Plan: Secondary to spina bifida as a child Still managing himself at home and getting out of bed and is moving around with wheelchair Has had home health nurse coming 3 times a week (4) Spina bifida: (5) Sacral decubitus ulcer: Plan: We will get wound care nurse involved Staging will be done accordingly Wound dressing was done on the day of admission-no drainage and no pain and no evidence of infection as per the patient As above DVT prophylax Subcu Lovenox CODE STATUS Full Admission and Anticipated Discharge Date Admission Date: February 03, 2022 Subjective 02/04/2022 The patient was seen and examined in telemetry unit He has been feeling much better since admission No fever and no chills, no cough and/or phlegm, no pain in the sacral area She was wondering if he could go home 02/05/2022 Patient was seen and examined in telemetry unit He remains stable without any significant symptoms Denies any fever and or chills He is worried that he cannot go home today 02/06/2022 The patient was seen and examined in telemetry unit He remains stable, afebrile and without any symptoms His blood culture grew 4 different organisms and awaiting sensitivity Awaiting ID evaluation Review of Systems Review of Systems: All systems reviewed and are unremarkable except as noted below Physical Exam Physical Exam: Lying in bed comfortably Constitutional: well developed, well nourished, + ill appearing and + obese Eyes: PERRL, conjunctivae normal, anicteric sclerae ENMT: external ear and nose normal, oropharynx normal Neck: trachea midline, no thyromegaly Respiratory: no respiratory distress Auscultation: lungs clear to auscultation bilaterally Cardiovascular: Rate/Rhythm: regular rate, regular rhythm and + tachycardic Heart Sounds: normal S1 and normal S2; no murmur Extremities: + edema (Bilateral) Gastrointestinal (Abdomen): Inspection/Auscultation: normal bowel sounds; abdomen not distended Percussion/Palpation: abdomen soft; abdomen nontender Musculoskeletal: Has significant deformities involving the lower extremities secondary to his spina bifida Skin: The sacral wound seems to be deep without any drainage and/or signs of inflammation Neurologic: Alert, awake and oriented x3 Psychiatric: A+Ox3, euthymic affect Lymphatic: no cervical or axillary lymphadenopathy Results & Data Results & Data ([facility]) Vital Signs (Past 12 Hours) Vital Signs Temp Pulse Resp BP BP Pulse Ox 02/06/22 16:35 36.7 C 72 16 113/73 97 02/06/22 12:19 36.6 C 78 16 121/67 96 02/06/22 07:32 36.9 C 72 18 137/74 98 Laboratory Results Short CBC 02/06/22 Range/Units 07:41 WBC 4.80 (4.8-10.8) K/uL Hgb 13.7 L (14.0-18.0) g/dL Hct 41.2 L (42-52) % Plt Count 213 (130-400) K/uL BMP 02/06/22 07:41 Sodium 139 Potassium 3.8 Chloride 105 Carbon Dioxide 25 BUN 12 Creatinine 0.58 L Glucose 100 H Calcium 9.0 Medications Administered Current Inpatient Medications Acetaminophen (Acetaminophen 500 Mg Tab) 1,000 mg PO Q6H PRN PRN Reason: Fever or headache Stop: 03/05/22 08:59 Ascorbic Acid (Ascorbic Acid 500 Mg Tab) [facility] [place] Stop: 03/07/22 08:59 Last Admin: 02/06/22 09:01 Dose: 500 mg Documented by: Enoxaparin Sodium (Enoxaparin Inj 40 Mg/0.4 Ml Syr) [facility] [place] Stop: 03/05/22 12:59 Last Admin: 02/06/22 09:02 Dose: 40 mg Documented by: Cefepime HCl 2,000 mg/ Syringe 20 mls @ 5 mls/min IV BID [facility]; Protocol Stop: 02/20/22 10:59 Last Admin: 02/06/22 11:28 Dose: 5 mls/min Documented by: Vancomycin HCl 1,000 mg/ (Sodium Chloride) 270 mls @ 200 mls/hr IV NOW [facility]; Protocol Stop: 02/06/22 19:35 Vancomycin HCl 1,750 mg/ (Sodium Chloride) 535 mls @ 200 mls/hr IV ONE ONE Stop: 02/06/22 21:40 Mirabegron (Mirabegron Er 25 Mg Tab) [facility] [place] Stop: 03/05/22 12:00 Last Admin: 02/06/22 09:01 Dose: 25 mg Documented by: Miscellaneous Information (Vancomycin Consult Active) 1 ea N/A UD PRN PRN Reason: Consult Stop: 03/08/22 18:14 Ondansetron HCl (Ondansetron Inj 2 Mg/Ml 2 Ml Vial) 4 mg IV Q6H PRN PRN Reason: Nausea And Vomiting Stop: 03/05/22 08:59 Pantoprazole Sodium (Pantoprazole 40 Mg Tab) [facility] [place] Stop: 03/05/22 12:00 Last Admin: 02/06/22 09:02 Dose: 40 mg Documented by: Polyethylene Glycol (Polyethylene (Miralax) 17 Gm Pack) 17 gm PO DAILY [facility] Stop: 03/07/22 15:14 Last Admin: 02/06/22 09:04 Dose: Not Given Documented by: Vitamin B Complex (Vitamin B Complex Tab) 1 tab [facility] [place] Stop: 03/06/22 08:59 Last Admin: 02/06/22 09:01 Dose: 1 tab Documented by: (1) Sepsis Sepsis acute organ dysfunction status: unspecified Sepsis type: sepsis due to unspecified organism Qualified Code(s): A41.9 - Sepsis, unspecified organism
[2022-02-06] MEDS ORDERED: VANCOMYCIN HCL 1,750 MG in SODIUM CHLORIDE 0.9% 500 ML IV ONE (19:00)
[2022-02-07] MEDS: CEFEPIME 2,000 MG in SYRINGE 0 ML IV SCH ×3 (06:21→22:17)
[2022-02-07] MEDS: VANCOMYCIN HCL 1,250 MG in SODIUM CHLORIDE 0.9% 250 ML IV SCH ×2 (06:41→18:02)
[2022-02-07] MEDS: PANTOprazole 40 MG TAB PO SCH (08:20)
[2022-02-07] MEDS: ASCORBIC ACID 500 MG TAB PO SCH (08:20)
[2022-02-07] MEDS: ENOXAPARIN INJ 40 MG/0.4 ML SYR SQ SCH (08:20)
[2022-02-07] MEDS: MIRABEGRON ER 25 MG TAB PO SCH (08:20)
[2022-02-07] MEDS: VITAMIN B COMPLEX TAB PO SCH (08:20)
[2022-02-07] MEDS: POLYETHYLENE (MIRALAX) 17 GM PACK PO SCH (08:21)
[2022-02-07] MEDS ORDERED: CEFEPIME 2,000 MG in SYRINGE 0 ML IV SCH (09:00)
--- NOTE | 2022-02-07 13:48 | Pharmacy Report ---
Pharmacy Vanc AUC Short Note - Date of Service February 07, 2022 - Assessment & Plan Assessment * Mr Sommer is a 66 year old M receiving Vanc/Cefepime for treatment of bacteremia (likely 2/2 sacral decubitus ulcer), perineal abscess, perirectal fistula. * Pertinent microbiologic data includes: 2/2 blood cx with Enterococcus faecalis (sensitive to vancomycin), Providencia rettgeri and Morganella morganii (both sensitive to Cefepime) * ID was consulted, but no recommendations on chart yet. Plan Vancomycin * AUC/CYNTHIA is the preferred PK/PD target for vancomycin * AUC guided dosing is effective and associated with decreased risk of nephrotoxicity compared to traditional trough targets * Vancomycin 1750mg IV x1 dose, then * Vanc 1250mg IV q12h * This regimen is expected to correspond to a trough level of ~14.8mcg/mL, and is predicted to achieve target AUC/CYNTHIA of 400-600 mg/L.hr. It may be associated with a 10% risk of nephrotoxicity * Trough level ordered prior to the 5th maintenance dose. Cefepime 2gm IV q8h Pharmacy will continue to follow and will adjust dose/frequency as necessary. Thank you.
--- NOTE | 2022-02-07 17:50 | Hospitalist Progress Note ---
Date of Service February 07, 2022 Assessment & Plan (1) Sepsis: Plan: -Present on admission, treated and resolved -source is most likely sacral ulcer -bacteremia is polymicrobial, repeat blood cultures ordered -continue Cefepime and Vancomycin pending formal ID consult (2) Acute UTI: Plan: Initial concern for UTI but urine culture negative Suprapubic catheter changed due to blockage, currently is draining clear yellow urine (3) Paraplegia: Plan: Secondary to spina bifida as a child Still managing himself at home and getting out of bed and is moving around with wheelchair Has had home health nurse coming 3 times a week (4) Spina bifida: (5) Sacral decubitus ulcer: Plan: Present on admission MRI pelvis from 01/24 shows perirectal abscess for which he is being seen in Wound Clinic. He was seen by OMAR here and surrounding tissue appears healthy, not requiring debridement. He will follow up with his surgeon at [facility]--has appointment in 2 weeks time (6) Bacteremia: Plan: DVT prophylax Subcu Lovenox CODE STATUS Full Disposition: Pending formal ID consult. Admission and Anticipated Discharge Date Admission Date: February 03, 2022 Subjective Patient with no complaints Remains afebrile Feels well, he is looking forward to going home Awaiting ID evaluation Physical Exam Physical Exam: appears older than stated age, no acute distress, non toxic Respiratory: breathing comfortably on roomair, no wheezing/rhonchi/rales Cardiovascular: regular rate and rhythm, no murmurs/rubs/gallops Gastrointestinal (Abdomen): Obese, soft, non tender Musculoskeletal: no edema, bilateral feet with evidence of prior surgeries/amputations, peripheral muscle wasting Neurologic: awake, alert, spontaneously moving extremities Results & Data Results & Data ([facility]) Vital Signs (Past 12 Hours) Vital Signs Temp Pulse Resp BP Pulse Ox 02/07/22 15:49 36.8 C 81 18 112/63 98 02/07/22 11:00 37.0 C 77 18 119/74 99 02/07/22 07:16 37.1 C 72 18 118/72 98 Medications Administered Current Inpatient Medications Acetaminophen (Acetaminophen 500 Mg Tab) 1,000 mg PO Q6H PRN PRN Reason: Fever or headache Stop: 03/05/22 08:59 Ascorbic Acid (Ascorbic Acid 500 Mg Tab) 500 mg PO QAM [facility] Stop: 03/07/22 08:59 Last Admin: 02/07/22 08:20 Dose: 500 mg Documented by: Enoxaparin Sodium (Enoxaparin Inj 40 Mg/0.4 Ml Syr) [facility] Stop: 03/05/22 12:59 Last Admin: 02/07/22 08:20 Dose: 40 mg Documented by: Vancomycin HCl 1,250 mg/ (Sodium Chloride) 275 mls @ 200 mls/hr IV Q12H [facility] Stop: 02/21/22 05:59 Last Infusion: 02/07/22 08:19 Dose: Infused Documented by: Cefepime HCl 2,000 mg/ Syringe 20 mls @ 5 mls/min IV Q8H [facility]; Protocol Stop: 02/21/22 05:59 Last Admin: 02/07/22 16:02 Dose: 5 mls/min Documented by: Mirabegron (Mirabegron Er 25 Mg Tab) 25 mg PO [facility] Stop: 03/05/22 12:00 Last Admin: 02/07/22 08:20 Dose: 25 mg Documented by: Miscellaneous Information (Vancomycin Consult Active) 1 ea N/A UD PRN PRN Reason: Consult Stop: 03/08/22 18:14 Ondansetron HCl (Ondansetron Inj 2 Mg/Ml 2 Ml Vial) 4 mg IV Q6H PRN PRN Reason: Nausea And Vomiting Stop: 03/05/22 08:59 Pantoprazole Sodium (Pantoprazole 40 Mg Tab) 40 mg PO [facility] Stop: 03/05/22 12:00 Last Admin: 02/07/22 08:20 Dose: 40 mg Documented by: Polyethylene Glycol (Polyethylene (Miralax) 17 Gm Pack) 17 gm PO DAILY [facility] Stop: 03/07/22 15:14 Last Admin: 02/07/22 08:21 Dose: 17 gm Documented by: Vitamin B Complex (Vitamin B Complex Tab) 1 tab PO [facility] Stop: 03/06/22 08:59 Last Admin: 02/07/22 08:20 Dose: 1 tab Documented by: (1) Sepsis Sepsis acute organ dysfunction status: unspecified Sepsis type: sepsis due to unspecified organism Qualified Code(s): A41.9 - Sepsis, unspecified organism
--- NOTE | 2022-02-07 19:18 | Communication Note ---
Date of Service: February 07, 2022 Patient with noted to have hives and rash over infusion site. Patient refusing further doses of IV vancomycin as per RN. AP Vancomycin hypersensitivity Benadryl as needed Add vancomycin to ADR/allergy list Daptomycin in place of vancomycin for now for MRSA coverage. Will relay to AM provider.
[2022-02-07] MEDS: diphenhydrAMINE Capsule 25 MG CAP PO PRN (19:31)
[2022-02-07] MEDS: DAPTOmycin 400 MG in SYRINGE 0 ML IV SCH (20:06)
[2022-02-08] MEDS: CEFEPIME 2,000 MG in SYRINGE 0 ML IV SCH ×3 (05:28→21:43)
[2022-02-08 06:22] LABS: Creatinine Clr Calc Pharmacy 114.1 ml/min; Est GFR (African American) 120.6 ml/min
[2022-02-08] MEDS: POLYETHYLENE (MIRALAX) 17 GM PACK PO SCH ×2 (08:34→08:38)
[2022-02-08] MEDS: ASCORBIC ACID 500 MG TAB PO SCH (08:34)
[2022-02-08] MEDS: PANTOprazole 40 MG TAB PO SCH (08:34)
[2022-02-08] MEDS: ENOXAPARIN INJ 40 MG/0.4 ML SYR SQ SCH (08:34)
[2022-02-08] MEDS: VITAMIN B COMPLEX TAB PO SCH (08:34)
[2022-02-08] MEDS: MIRABEGRON ER 25 MG TAB PO SCH (08:34)
--- NOTE | 2022-02-08 18:58 | Hospitalist Progress Note ---
Date of Service February 08, 2022 Assessment & Plan (1) Sepsis: Plan: -Present on admission, treated and resolved -source is most likely sacral ulcer -bacteremia is polymicrobial, repeat blood cultures 02/07 no growth so far -was on cefepime and vancomycin, now cefepime and daptomycin due to rash with vancomycin -Formal ID consult pending (2) Acute UTI: Plan: Initial concern for UTI but urine culture negative Suprapubic catheter changed due to blockage, currently is draining clear yellow urine (3) Paraplegia: Plan: Secondary to spina bifida as a child Still managing himself at home and getting out of bed and is moving around with wheelchair Has had home health nurse coming 3 times a week (4) Spina bifida: (5) Sacral decubitus ulcer: Plan: Present on admission MRI pelvis from 01/24 shows perirectal abscess for which he is being seen in Wound Clinic. He was seen by OMAR here and surrounding tissue appears healthy, not requiring debridement. He will follow up with his surgeon at [facility]--has appointment in 2 weeks time (6) Bacteremia: Plan: DVT prophylax Subcu Lovenox CODE STATUS Full Disposition: Pending final antibiotic recommendations Admission and Anticipated Discharge Date Admission Date: February 03, 2022 Subjective Feels well. Remains afebrile. No acute distress Physical Exam Physical Exam: Obese, no acute distress, non toxic Respiratory: Breathing comfortably on room air, no wheezing/rhonchi/rales Cardiovascular: regular rate and rhythm, no murmurs/rubs/gallops Gastrointestinal (Abdomen): soft, non tender Results & Data Results & Data ([facility]) Vital Signs (Past 12 Hours) Vital Signs Temp Pulse Pulse Resp BP Pulse Ox 02/08/22 16:08 36.7 C 77 18 118/68 96 02/08/22 15:43 87 02/08/22 11:11 36.8 C 77 19 115/71 95 02/08/22 07:36 36.6 C 85 20 131/80 98 02/08/22 07:30 81 Laboratory Results [facility] 02/08/22 05:32 Creatinine 0.59 L Medications Administered Current Inpatient Medications Acetaminophen (Acetaminophen 500 Mg Tab) 1,000 mg PO Q6H PRN PRN Reason: Fever or headache Stop: 03/05/22 08:59 Ascorbic Acid (Ascorbic Acid 500 Mg Tab) 500 mg PO QAM [facility] Stop: 03/07/22 08:59 Last Admin: 02/08/22 08:34 Dose: 500 mg Documented by: Diphenhydramine HCl (Diphenhydramine Capsule 25 Mg Cap) 25 mg PO QID PRN PRN Reason: Allergic Reaction Stop: 03/09/22 19:19 Last Admin: 02/07/22 19:31 Dose: 25 mg Documented by: Enoxaparin Sodium (Enoxaparin Inj 40 Mg/0.4 Ml Syr) 40 [facility] [place] [facility] [place]: 03/05/22 12:59 Last Admin: 02/08/22 08:34 Dose: 40 mg Documented by: Cefepime HCl 2,000 mg/ Syringe 20 mls @ 5 mls/min IV Q8H [facility]; Protocol Stop: 02/21/22 05:59 Last Admin: 02/08/22 14:50 Dose: 5 mls/min Documented by: Daptomycin 400 mg/ Syringe 8 mls @ 4 mls/min IV Q24H [facility]; Protocol Stop: 02/14/22 19:59 Last Admin: 02/07/22 20:06 Dose: 4 mls/min Documented by: Mirabegron (Mirabegron Er 25 Mg Tab) 25 mg [facility] [place] [facility] [place] Stop: 03/05/22 12:00 Last Admin: 02/08/22 08:34 Dose: 25 mg Documented by: Ondansetron HCl (Ondansetron Inj 2 Mg/Ml 2 Ml Vial) 4 mg IV Q6H PRN PRN Reason: Nausea And Vomiting Stop: 03/05/22 08:59 Pantoprazole Sodium (Pantoprazole 40 Mg Tab) 40 mg [facility] [place] [facility] [place]: 03/05/22 12:00 Last Admin: 02/08/22 08:34 Dose: 40 mg Documented by: Polyethylene Glycol (Polyethylene (Miralax) 17 Gm Pack) 17 gm PO DAILY [facility] Stop: 03/07/22 15:14 Last Admin: 02/08/22 08:38 Dose: Not Given Documented by: Vitamin B Complex (Vitamin B Complex Tab) 1 tab [facility] [place] [facility] [place]: 03/06/22 08:59 Last Admin: 02/08/22 08:34 Dose: 1 tab Documented by: (1) Sepsis Sepsis acute organ dysfunction status: unspecified Sepsis type: sepsis due to unspecified organism Qualified Code(s): A41.9 - Sepsis, unspecified organism
[2022-02-08] MEDS: DAPTOmycin 400 MG in SYRINGE 0 ML IV SCH (20:44)
[2022-02-09] MEDS ORDERED: VANCOMYCIN TROUGH ONE (05:30)
[2022-02-09] MEDS: CEFEPIME 2,000 MG in SYRINGE 0 ML IV SCH ×3 (05:46→22:33)
[2022-02-09 08:10] LABS: Creatinine Clr Calc Pharmacy 128.2 ml/min; Est GFR (Non-African American) 109.6 ml/min
[2022-02-09] MEDS: MIRABEGRON ER 25 MG TAB PO SCH (09:05)
[2022-02-09] MEDS: ENOXAPARIN INJ 40 MG/0.4 ML SYR SQ SCH (09:05)
[2022-02-09] MEDS: POLYETHYLENE (MIRALAX) 17 GM PACK PO SCH (09:05)
[2022-02-09] MEDS: VITAMIN B COMPLEX TAB PO SCH (09:05)
[2022-02-09] MEDS: PANTOprazole 40 MG TAB PO SCH (09:05)
[2022-02-09] MEDS: ASCORBIC ACID 500 MG TAB PO SCH (09:05)
[2022-02-09] MEDS ORDERED: MoRPHine SULFATE 2 MG/ML CARP IV STA (11:41)
--- NOTE | 2022-02-09 14:22 | Magnetic Resonance Report ---
MRI OF THE PELVIS WITHOUT CONTRAST CLINICAL HISTORY: Nonhealing wounds. evaluate for osteomyelitis, perirectal abscess. COMPARISON STUDY: CT of the abdomen and pelvis March 30, 2021. MRI of the pelvis January 24, 2022. TECHNIQUE: Utilizing a 1.5 [place] magnet and dedicated coil, multiplanar, multiecho imaging of the pel vis was performed without intravenous contrast. FINDINGS: Suprapubic catheter is in place. There is a descending colostomy with Genevieve pouch. Hunter tomal hernia containing several bowel loops is partially imaged. No marrow edema is identified to sug gest acute osteomyelitis. No marrow replacement is present. The inferior sacrum or coccyx are absent. This may be postsurgical. Deformity of the right ischial tuberosity is chronic. An inferior right bu ttock wound with dermal thickening is chronic. This is T2 hypointense. This is similar to CTs dating back to September 09, 2018. No associated fluid collection to suggest an abscess. There is no pelvic lym phadenopathy. There is mild symmetric intramuscular increased T2 signal within the bilateral iliacus muscles. This could be related to atrophy. Extensive muscular atrophy within the pelvis, hips and thi ghs is noted. Hypointensity within the prostate gland corresponds to prostatic calcifications by CT. IMPRESSION: 1. No evidence for acute osteomyelitis within the pelvis. 2. Chronic right inferior buttock wound with dermal thickening. No associated fluid collection to sug gest abscess. 3. Absence of the inferior sacrum and coccyx which may be post surgical. Chronic deformity of the rig ht ischial tuberosity. ACT 112: Negative or not required by law. Electronically signed by: Hemanth Field M.D. 02/09/2022 2:21 PM
--- NOTE | 2022-02-09 17:44 | Hospitalist Progress Note ---
Date of Service February 09, 2022 Assessment & Plan (1) Sepsis: Plan: -Present on admission, treated and resolved -source is most likely sacral ulcer -bacteremia is polymicrobial, repeat blood cultures 02/07 no growth so far -was on cefepime and vancomycin, now cefepime and daptomycin due to rash with vancomycin -, Repeat MRI pelvis wo contrast (patient reports contrast intolerance last time) does not show osteomyelitis or abscess. I discussed case with Dr Yates of [place] and it was recommended that patient should have surgical evaluation to review MRI pelvis and evaluate patient to ensure no abscess/deeper infection. -If not underlying abscess/osteomyelitis, then 2 weeks of IV antibiotics are sufficient. Recommend Daptomycin and Cefepime or Daptomycin and ertapenem for daily dosing -Patient wants to return home, wants to go to infusion center so daily dosing (daptomcin +ertapenem) is preferred (2) Acute UTI: Plan: Initial concern for UTI but urine culture negative Suprapubic catheter changed due to blockage, currently is draining clear yellow urine (3) Paraplegia: Plan: Secondary to spina bifida as a child Still managing himself at home and getting out of bed and is moving around with wheelchair Has had home health nurse coming 3 times a week (4) Spina bifida: (5) Sacral decubitus ulcer: Plan: Present on admission MRI pelvis from 01/24 shows perirectal abscess for which he is being seen in Wound Clinic. He was seen by OMAR here and surrounding tissue appears healthy, not requiring debridement. He will follow up with his surgeon at [facility]--has appointment in 2 weeks time MRI pelvis today without contrast negative for osteomyelitis or abscess. (6) Bacteremia: Plan: DVT prophylax Subcu Lovenox CODE STATUS Full Disposition: Plan for discharge home and daily antibiotics at infusion center. Will discuss with CM to help with arrangements Admission and Anticipated Discharge Date Admission Date: February 03, 2022 Subjective Patient feels well, no acute distress, no fevers Physical Exam Physical Exam: Sitting in bed, comfortable, watching tv, no acute distress Respiratory: breathing comfortably on room air, no wheezing/rhonchi/rales Cardiovascular: regular rate and rhythm, no murmurs/rubs Gastrointestinal (Abdomen): soft Neurologic: awake, alert Results & Data Results & Data ([facility]) Vital Signs (Past 12 Hours) Vital Signs Temp Pulse Pulse Resp BP Pulse Ox 02/09/22 16:47 36.8 C 78 18 139/79 96 02/09/22 15:48 77 02/09/22 11:37 36.8 C 71 18 130/74 96 02/09/22 08:00 79 02/09/22 07:32 36.9 C 78 18 133/76 97 Laboratory Results BMP 02/09/22 07:31 Creatinine 0.52 L Medications Administered Current Inpatient Medications Acetaminophen (Acetaminophen 500 Mg Tab) 1,000 mg PO Q6H PRN PRN Reason: Fever or headache Stop: 03/05/22 08:59 Ascorbic Acid (Ascorbic Acid 500 Mg Tab) 500 mg PO QAM [facility] Stop: 03/07/22 08:59 Last Admin: 02/09/22 09:05 Dose: 500 mg Documented by: Diphenhydramine HCl (Diphenhydramine Capsule 25 Mg Cap) 25 mg PO QID PRN PRN Reason: Allergic Reaction Stop: 03/09/22 19:19 Last Admin: 02/07/22 19:31 Dose: 25 mg Documented by: Enoxaparin Sodium (Enoxaparin Inj 40 Mg/0.4 Ml Syr) 40 mg SQ QAM [facility] Stop: 03/05/22 12:59 Last Admin: 02/09/22 09:05 Dose: 40 mg Documented by: Cefepime HCl 2,000 mg/ Syringe 20 mls @ 5 mls/min IV Q8H [facility]; Protocol Stop: 02/21/22 05:59 Last Admin: 02/09/22 14:48 Dose: 5 mls/min Documented by: Daptomycin 400 mg/ Syringe 8 mls @ 4 mls/min IV Q24H [facility]; Protocol Stop: 02/14/22 19:59 Last Admin: 02/08/22 20:44 Dose: 4 mls/min Documented by: Mirabegron (Mirabegron Er 25 Mg Tab) 25 mg PO QAM [facility] Stop: 03/05/22 12:00 Last Admin: 02/09/22 09:05 Dose: 25 mg Documented by: Ondansetron HCl (Ondansetron Inj 2 Mg/Ml 2 Ml Vial) 4 mg IV Q6H PRN PRN Reason: Nausea And Vomiting Stop: 03/05/22 08:59 Pantoprazole Sodium (Pantoprazole 40 Mg Tab) 40 mg PO QAM [facility] Stop: 03/05/22 12:00 Last Admin: 02/09/22 09:05 Dose: 40 mg Documented by: Polyethylene Glycol (Polyethylene (Miralax) 17 Gm Pack) 17 gm PO DAILY [facility] Stop: 03/07/22 15:14 Last Admin: 02/09/22 09:05 Dose: Not Given Documented by: Vitamin B Complex (Vitamin B Complex Tab) 1 tab PO QAM [facility] Stop: 03/06/22 08:59 Last Admin: 02/09/22 09:05 Dose: 1 tab Documented by: (1) Sepsis Sepsis acute organ dysfunction status: unspecified Sepsis type: sepsis due to unspecified organism Qualified Code(s): A41.9 - Sepsis, unspecified organism
[2022-02-09] MEDS: DAPTOmycin 400 MG in SYRINGE 0 ML IV SCH (20:30)
--- NOTE | 2022-02-09 21:46 | Surgery Consultation ---
Date of Consultation February 09, 2022 Assessment & Plan (1) Sacral decubitus ulcer: -For the present time concerning patient's sacral decubitus ulcer we would continue local wound care as well as offloading is much as possible We will continue antibiotics in form of cefepime and daptomycin We will reinspect the wound tomorrow in the presence of Dr. Curiel determine if any surgical debridement at this facility will be required As noted the patient was tentatively scheduled to see colorectal surgery at [facility] later this month History of Present Illness Reason for Consultation: Sacral wound Attending Physician: Lisa Buckner MD History of Present Illness With concernThis is a 66-year-old male who has been hospitalized at [facility] since 02/03/2022. This patient is noted to have a history of paraplegia that was secondary to a complication of spina bifida with neuroge nasra bladder. At the time of admission the patient was complaining of decreased urine output along with some suprapubic discomfort from his suprapubic catheter. In addition he had associated nausea and fever at the time of admission. The patient was admitted with an underlying diagnosis of sepsis urine for urinary source. Patient was treated with intravenous fluids as well as intravenous antibiotics in form of Rocephin. It should be noted that the patient did have a sacral decubitus ulcer that is longstanding noted time of admission with wound dressing change performed the day of admission. There is no drainage noted and there is no pain or evidence of infection noted at that time according to the hospitalist notes. Concerning the patient's sacral wound patient says that he does follow at the wound care center in [place]. His most recent visit was on 22 January at which time the patient was noted to have a stage IV ulcer of the right ischium. The wound did not require debridement at that time. It is also noted that due to the patient's wound he is to have follow-up with [facility] colorectal surgeons on March 02. He did have a chest x-ray that showed no evidence of pneumonia. An MRI of the pelvis was performed on 02/09/2022. This showed that the inferior sacrum and coccyx's were absence. There is no marrow edema to suggest acute osteomyelitis. There were no associated fluid collections to suggest an abscess. There is no pelvic lymphadenopathy. Most recent labs include a CBC from 02/06/2022 that showed white blood cell count and platelet count were normal. Hemoglobin and hematocrit were 13.7 and 41.2 respectively. A chemistry profile from the same date showed sodium and potassium are both normal. His BUN and creatinine were 12 and 0.5. It is nowhere the mention that the patient did have a previous MRI of the pelvis on 01/24/2022 that showed no evidence of osteomyelitis. There was concern on the study for evidence of a fistula tract extending to the posterior wall of the rectum. There is also concern on the study for thick-walled enhancing abscess adjacent to the anus. During this hospitalization the patient has had labs and imaging which independent reviewed. At the time of my interview the patient was resting comfortably in bed and he was in no distress Allergies Allergy/AdvReac Type Severity Reaction Status Date / Time iodine Allergy Intermediate A Verified 02/03/22 07:04 TEEN-SKIN CONTACT BURNED THE SKIN-FELT LIKE ON FIRE adhesive Allergy Mild ADHESIVE Verified 02/03/22 07:04 TAPE RIPS SKIN APART clindamycin Allergy Mild RASH Verified 02/03/22 07:04 Iodinated Contrast Media Allergy Mild NAUSEA Verified 02/03/22 07:04 Penicillins Allergy Mild HIVES-ITCHING,HAS Verified 02/03/22 07:04 TOLERATED ANCEF IN PAST pineapple Allergy Mild "TONGUE Verified 02/03/22 07:04 WALKER AND CRACKS" vancomycin Allergy Mild hives Verified 02/07/22 19:20 aspirin AdvReac Mild GI Verified 02/03/22 07:04 SENSITIVITY Home Medications Medication Instructions Recorded Confirmed Type mirabegron 25 mg tablet,extended 25 mg PO QAM 01/04/22 02/03/22 History release 24 hr (Myrbetriq) pantoprazole 40 mg tablet,delayed 40 mg PO QAM 01/04/22 02/03/22 History release vitamin B complex 1 tab PO QAM 02/03/22 02/03/22 History Patient History Medical History Anxiety and depression Chronic back pain Chronic gum disease Colostomy hernia Colostomy in place Decubitus ulcer CHRONIC; FOLLOWS W/ WOUND CLINIC Deep vein thrombosis > 10 YEARS AGO - TREATED W/ BLOOD THINNERS - R/T IMMOBILITY Dysphagia Frequent UTI Hearing deficit RT EAR History of febrile seizure X 1; CHILDHOOD HTN (hypertension) IBS (irritable bowel syndrome) Kidney stones Neurogenic bladder Osteoarthritis Paraplegia Schatzki's ring Seasonal allergies Spina bifida SPINAL CLOSURE Tinnitus RT EAR Uses [place] catheter Wheelchair bound Surgical History 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 History of anesthesia reaction SLOW TO WAKE History of colonoscopy History of cystoscopy W/ STONE EXTRACTION History of esophageal dilatation History of esophagogastroduodenoscopy (EGD) History of exploratory laparotomy History of incisional hernia repair X3 History of lithotripsy History of sinus surgery History of surgery RT HIP WOUND DEBRIDEMENT W/ SKIN GRAFTING History of tooth extraction Status post myringotomy with insertion of tube Family History Other No family history of adverse response to anesthesia Social History Smoking Status: Never smoker Second Hand Exposure: No; Hx Alcohol Use: Yes Alcohol type: beer Hx Substance Use: No Preferred Language: Persian Communication Ability: Effective Contract Agent Required: No Beliefs That Will Affect Care: None marital status: Single Current Living Situation: Alone How many Children do You have: 0 Other Information That Helps Us Care for You: No Feels Safe at Home: Yes Safety Concerns: Feels Safe At This Time Assistive Devices: Slide Board and Wheelchair Review of Systems Constitutional: + fever and + chills Eyes: no diplopia Ear, Nose, Mouth, Throat: no ear pain Respiratory: no cough Cardiovascular: no chest pain Gastrointestinal: no abdominal pain Genitourinary: + as per Subjective / HPI Integumentary: as per Subjective / HPI Neurologic: Paraplegia, chronic Physical Exam Physical Exam: Patient's sacrum was examined and he was noted to have a sacral wound near his rectum. It measured approximately 4 cm x 2 cm. It was not malodorous. There is no crepitus in the soft tissue. There is no purulent drainage. There was some granulation tissue noted. I did not appreciate any feculent material in the wound. Constitutional: no acute distress Eyes: no conjunctival abnormality ENMT: Ears: no hearing impairment Respiratory: normal respiratory effort; no respiratory distress and no labored breathing Cardiovascular: Rate/Rhythm: regular rate and regular rhythm Gastrointestinal (Abdomen): Soft, nontender, nondistended Skin: no rashes, warm and dry Psychiatric: A+Ox3, euthymic affect Results & Data ([facility]) Vital Signs (Past 12 Hours) Vital Signs Temp Pulse Pulse Resp BP Pulse Ox 02/09/22 19:49 36.7 C 72 18 118/73 96 02/09/22 16:47 36.8 C 78 18 139/79 96 02/09/22 15:48 77 02/09/22 11:37 36.8 C 71 18 130/74 96 PG Care Time/CCT Total # of Minutes Spent Total Time Spent with Patient: Total time spent is greater than 50% in coordination of care (as documented) at patient's floor/unit and/or counseling patient: Coding Level of Care Code 08890 Inpt Consult Level 5 Diagnoses Sacral decubitus ulcer L89.159
[2022-02-10] MEDS: diphenhydrAMINE Capsule 25 MG CAP PO PRN (03:23)
[2022-02-10] MEDS: CEFEPIME 2,000 MG in SYRINGE 0 ML IV SCH (06:28)
[2022-02-10 07:52] LABS: Creatinine Clr Calc Pharmacy 114.9 ml/min; Est GFR (African American) 121.4 ml/min; Est GFR (Non-African American) 104.8 ml/min
[2022-02-10] MEDS: MIRABEGRON ER 25 MG TAB PO SCH (08:59)
[2022-02-10] MEDS: PANTOprazole 40 MG TAB PO SCH (08:59)
[2022-02-10] MEDS: ASCORBIC ACID 500 MG TAB PO SCH (08:59)
[2022-02-10] MEDS: VITAMIN B COMPLEX TAB PO SCH (08:59)
[2022-02-10] MEDS: POLYETHYLENE (MIRALAX) 17 GM PACK PO SCH (08:59)
[2022-02-10] MEDS: ENOXAPARIN INJ 40 MG/0.4 ML SYR SQ SCH (08:59)
--- NOTE | 2022-02-10 09:29 | Surgery Progress Note ---
Date of Service February 10, 2022 Assessment & Plan (1) Sacral decubitus ulcer: Plan: no evidence for fistula in ano, abscess, or deep infection or wound at this time. no surgical intervention surgery will sign off f/u with colorectal as scheduled (2) Bacteremia: Admission and Anticipated Discharge Date Admission Date: February 03, 2022 Subjective 66 y/o male admitted with sepsis, surgery consulted to assess for fistula or deep tissue infection. Long history of right gluteal pressure ulcer. Physical Exam Constitutional: + obese Gastrointestinal (Abdomen): normal bowel sounds, soft, nontender, no hepatosplenomegaly right gluteal pressure ulcer with no ttp, fluctuance, drainage, opening or other concerning features. no infection. No e/o fistula in ano on exam. Results & Data ([facility]) Vital Signs (Past 12 Hours) Vital Signs Temp Pulse Pulse Resp BP Pulse Ox 02/10/22 08:00 36.9 C 86 18 142/63 H 98 02/10/22 03:24 36.6 C 77 16 136/79 95 02/09/22 23:35 69 02/09/22 23:21 36.8 C 75 16 120/73 95 Diagnostic Findings Most recent MRI reviewed, no fistula or abscess, no osteomyelitis. PG Care Time/CCT Total # of Minutes Spent Total Time Spent with Patient: Total time spent is greater than 50% in coordination of care (as documented) at patient's floor/unit and/or counseling patient: Coding Level of Care Code 80165 Inpt Consult Level 2 Diagnoses Sacral decubitus ulcer L89.159 Bacteremia R78.81
[2022-02-10] MEDS: ERTAPENEM SODIUM 1,000 MG in SYRINGE 0 ML IV SCH (12:48)
--- NOTE | 2022-02-10 17:44 | Hospitalist Progress Note ---
Date of Service February 10, 2022 Assessment & Plan (1) Sepsis: Plan: -Present on admission, treated and resolved -source is most likely sacral ulcer -bacteremia is polymicrobial, repeat blood cultures 02/07 no growth so far -was on cefepime and vancomycin, now cefepime and daptomycin due to rash with vancomycin and now daptomycin and ertapenem -Evaluated by surgery and clinically no evidence of underlying deeper infection -day 5 of 14 currently (2) Acute UTI: Plan: Initial concern for UTI but urine culture negative Suprapubic catheter changed due to blockage, currently is draining clear yellow urine (3) Paraplegia: Plan: Secondary to spina bifida as a child Still managing himself at home and getting out of bed and is moving around with wheelchair Has had home health nurse coming 3 times a week (4) Spina bifida: (5) Sacral decubitus ulcer: Plan: Present on admission MRI pelvis from 01/24 shows perirectal abscess for which he is being seen in [facility]ound Clinic. He was seen by OMAR here and surrounding tissue appears healthy, not requiring debridement. He will follow up with his surgeon at [facility]--has appointment in 2 weeks time MRI pelvis 02/09 without contrast negative for osteomyelitis or abscess. (6) Bacteremia: Plan: DVT prophylax Subcu Lovenox CODE STATUS Full Disposition: Plan for discharge home on Saturday once home infusion is set up (patient does not want to go to facility for antibiotics and does not have reliable transportation for infusion center). He is medically stable for discharge otherwise. Already has an ultrasound guided IV Admission and Anticipated Discharge Date Admission Date: February 03, 2022 Subjective No new issues Patient initially declined home infusion (no clear reason) and only wanted to go to infusion center, however he doesn't have access to transportation on the weekends and will need to be on IV antibiotics for another 9 days. He doesn't want to go to SNF. After discussing with CM, he is now agreeable for home infusion. Physical Exam Physical Exam: Non toxic, no acute distress Respiratory: breathing comfortably on room air, no wheezing/rhonchi/rales Cardiovascular: regular rate and rhythm, no murmurs/rubs/gallops Gastrointestinal (Abdomen): soft, non tender Musculoskeletal: no edema Neurologic: awake, alert, spontaneously moving extremities Results & Data Results & Data ([facility]) Vital Signs (Past 12 Hours) Vital Signs Temp Pulse Pulse Resp BP Pulse Ox 02/10/22 13:51 78 02/10/22 12:00 36.7 C 88 18 128/70 97 02/10/22 08:00 36.9 C 72 86 18 142/63 H 98 Laboratory Results BMP 02/10/22 06:14 Creatinine 0.58 L Medications Administered Current Inpatient Medications Acetaminophen (Acetaminophen 500 Mg Tab) 1,000 mg PO Q6H PRN PRN Reason: Fever or headache Stop: 03/05/22 08:59 Ascorbic Acid (Ascorbic Acid 500 Mg Tab) 500 mg PO QAM [facility] Stop: 03/07/22 08:59 Last Admin: 02/10/22 08:59 Dose: 500 mg Documented by: Diphenhydramine HCl (Diphenhydramine Capsule 25 Mg Cap) 25 mg PO QID PRN PRN Reason: Allergic Reaction Stop: 03/09/22 19:19 Last Admin: 02/10/22 03:23 Dose: 25 mg Documented by: Enoxaparin Sodium (Enoxaparin Inj 40 Mg/0.4 Ml Syr) [address] [facility] Stop: 03/05/22 12:59 Last Admin: 02/10/22 08:59 Dose: 40 mg Documented by: Daptomycin 400 mg/ Syringe 8 mls @ 4 mls/min IV Q24H [facility]; Protocol Stop: 02/14/22 19:59 Last Admin: 02/09/22 20:30 Dose: 4 mls/min Documented by: Ertapenem 1,000 mg/ Syringe 10 mls @ 2 mls/min IV Q24H [facility] Stop: 02/24/22 11:59 Last Admin: 02/10/22 12:48 Dose: 2 mls/min Documented by: Mirabegron ([facility]abegron Er 25 Mg Tab) [facility] Stop: 03/05/22 12:00 Last Admin: 02/10/22 08:59 Dose: 25 mg Documented by: Ondansetron HCl (Ondansetron Inj 2 Mg/Ml 2 Ml Vial) 4 mg IV Q6H PRN PRN Reason: Nausea And Vomiting Stop: 03/05/22 08:59 Pantoprazole Sodium (Pantoprazole 40 Mg Tab) [facility] Stop: 03/05/22 12:00 Last Admin: 02/10/22 08:59 Dose: 40 mg Documented by: Polyethylene Glycol (Polyethylene (Miralax) 17 Gm Pack) 17 gm PO DAILY [facility] Stop: 03/07/22 15:14 Last Admin: 02/10/22 08:59 Dose: 17 gm Documented by: Vitamin B Complex (Vitamin B Complex Tab) 1 tab PO QAM [facility] Stop: 03/06/22 08:59 Last Admin: 02/10/22 08:59 Dose: 1 tab Documented by: (1) Sepsis Sepsis acute organ dysfunction status: unspecified Sepsis type: sepsis due to unspecified organism Qualified Code(s): A41.9 - Sepsis, unspecified organism
[2022-02-10] MEDS: DAPTOmycin 400 MG in SYRINGE 0 ML IV SCH (20:23)
[2022-02-11 07:10] LABS: Creatinine Clr Calc Pharmacy 121.2 ml/min; Est GFR (African American) 124.1 ml/min; Est GFR (Non-African American) 107.1 ml/min
[2022-02-11] MEDS: VITAMIN B COMPLEX TAB PO SCH (07:52)
[2022-02-11] MEDS: PANTOprazole 40 MG TAB PO SCH (07:52)
[2022-02-11] MEDS: ASCORBIC ACID 500 MG TAB PO SCH (07:52)
[2022-02-11] MEDS: MIRABEGRON ER 25 MG TAB PO SCH (07:52)
[2022-02-11] MEDS: ENOXAPARIN INJ 40 MG/0.4 ML SYR SQ SCH (07:52)
[2022-02-11] MEDS: POLYETHYLENE (MIRALAX) 17 GM PACK PO SCH (07:52)
[2022-02-11] MEDS: ERTAPENEM SODIUM 1,000 MG in SYRINGE 0 ML IV SCH (11:40)
--- NOTE | 2022-02-11 16:33 | Hospitalist Progress Note ---
Date of Service February 11, 2022 Assessment & Plan (1) Sepsis: Plan: -Present on admission, treated and resolved -source is most likely sacral ulcer -bacteremia is polymicrobial, repeat blood cultures 02/07 no growth so far -was on cefepime and vancomycin, now cefepime and daptomycin due to rash with vancomycin and now daptomycin and ertapenem for ease of dosing -Evaluated by surgery and clinically no evidence of underlying deeper infection -day 7 of 14 currently (2) Acute UTI: Plan: Initial concern for UTI but urine culture negative Suprapubic catheter changed due to blockage, currently is draining clear yellow urine (3) Paraplegia: Plan: Secondary to spina bifida as a child Still managing himself at home and getting out of bed and is moving around with wheelchair Has had home health nurse coming 3 times a week (4) Spina bifida: (5) Sacral decubitus ulcer: Plan: Present on admission MRI pelvis from 01/24 shows perirectal abscess for which he is being seen in Wound Clinic. He was seen by OMAR here and surrounding tissue appears healthy, not requiring debridement. He will follow up with his surgeon at [facility]--has appointment in 2 weeks time MRI pelvis 02/09 without contrast negative for osteomyelitis or abscess. (6) Bacteremia: Plan: DVT prophylax Subcu Lovenox CODE STATUS Full Disposition: Plan for discharge home on Saturday once home infusion is set up (patient does not want to go to facility for antibiotics and does not have reliable transportation for infusion center). He is medically stable for discharge otherwise. Already has an ultrasound guided IV Admission and Anticipated Discharge Date Admission Date: February 03, 2022 Subjective No issues overnight Remains afebrile Physical Exam Physical Exam: No acute distress, non toxic, comfortable Respiratory: breathing comfortably on room air, no wheezing/rhonchi Cardiovascular: regular rate and rhythm, no murmurs/rubs Gastrointestinal (Abdomen): soft, non tender Musculoskeletal: bilateral lower extremities with peripheral muscle wasting Skin: known stage 4 sacral ulcer (present on admission) Neurologic: baseline paraplegia, awake, alert, spontaneously moving arms Results & Data Results & Data ([facility]) Vital Signs (Past 12 Hours) Vital Signs Temp Pulse Pulse Resp BP Pulse Ox 02/11/22 15:34 36.8 C 76 16 113/69 97 02/11/22 12:00 36.7 C 87 18 121/69 97 02/11/22 08:00 84 02/11/22 07:16 36.8 C 80 17 125/70 99 Laboratory Results BMP 02/11/22 06:31 Creatinine 0.55 L Medications Administered Current Inpatient Medications Acetaminophen (Acetaminophen 500 Mg Tab) 1,000 mg PO Q6H PRN PRN Reason: Fever or headache Stop: 03/05/22 08:59 Ascorbic Acid (Ascorbic Acid 500 Mg Tab) 500 mg PO [facility] Stop: 03/07/22 08:59 Last Admin: 02/11/22 07:52 Dose: 500 mg Documented by: Diphenhydramine HCl (Diphenhydramine Capsule 25 Mg Cap) 25 mg PO QID PRN PRN Reason: Allergic Reaction Stop: 03/09/22 19:19 Last Admin: 02/10/22 03:23 Dose: 25 mg Documented by: Enoxaparin Sodium (Enoxaparin Inj 40 Mg/0.4 Ml Syr) 40 mg SQ [facility] Stop: 03/05/22 12:59 Last Admin: 02/11/22 07:52 Dose: 40 mg Documented by: Daptomycin 400 mg/ Syringe 8 mls @ 4 mls/min IV Q24H [facility]; Protocol Stop: 02/14/22 19:59 Last Admin: 02/10/22 20:23 Dose: 4 mls/min Documented by: Ertapenem 1,000 mg/ Syringe 10 mls @ 2 mls/min IV Q24H [facility] Stop: 02/24/22 11:59 Last Admin: 02/11/22 11:40 Dose: 2 mls/min Documented by: Mirabegron (Mirabegron Er 25 Mg Tab) 25 mg PO [facility] Stop: 03/05/22 12:00 Last Admin: 02/11/22 07:52 Dose: 25 mg Documented by: Ondansetron HCl (Ondansetron Inj 2 Mg/Ml 2 Ml Vial) 4 mg IV Q6H PRN PRN Reason: Nausea And Vomiting Stop: 03/05/22 08:59 Pantoprazole Sodium (Pantoprazole 40 Mg Tab) [facility] Stop: 03/05/22 12:00 Last Admin: 02/11/22 07:52 Dose: 40 mg Documented by: Polyethylene Glycol (Polyethylene (Miralax) 17 Gm Pack) 17 gm PO DAILY [facility] Stop: 03/07/22 15:14 Last Admin: 02/11/22 07:52 Dose: Not Given Documented by: Vitamin B Complex (Vitamin B Complex Tab) 1 tab PO QAM [facility] Stop: 03/06/22 08:59 Last Admin: 02/11/22 07:52 Dose: 1 tab Documented by: (1) Sepsis Sepsis acute organ dysfunction status: unspecified Sepsis type: sepsis due to unspecified organism Qualified Code(s): A41.9 - Sepsis, unspecified organism
[2022-02-11] MEDS: DAPTOmycin 400 MG in SYRINGE 0 ML IV SCH (21:03)
[2022-02-12] MEDS: ASCORBIC ACID 500 MG TAB PO SCH (08:20)
[2022-02-12] MEDS: ENOXAPARIN INJ 40 MG/0.4 ML SYR SQ SCH (08:20)
[2022-02-12] MEDS: VITAMIN B COMPLEX TAB PO SCH (08:20)
[2022-02-12] MEDS: MIRABEGRON ER 25 MG TAB PO SCH (08:21)
[2022-02-12] MEDS: POLYETHYLENE (MIRALAX) 17 GM PACK PO SCH (08:21)
[2022-02-12] MEDS: PANTOprazole 40 MG TAB PO SCH (08:21)
[2022-02-12] MEDS: ERTAPENEM SODIUM 1,000 MG in SYRINGE 0 ML IV SCH (12:57)
[2022-02-12] MEDS: DAPTOmycin 400 MG in SYRINGE 0 ML IV SCH (14:33)
--- NOTE | 2022-02-12 16:47 | Hospitalist Progress Note ---
Date of Service February 12, 2022 Assessment & Plan (1) Sepsis: Plan: -Present on admission, treated and resolved -source is most likely sacral ulcer -bacteremia is polymicrobial, repeat blood cultures 02/07 no growth so far -was on cefepime and vancomycin (started 02/06)--> cefepime and daptomycin (02/07) due to rash with vancomycin and now daptomycin and ertapenem (02/10) for ease of dosing -Evaluated by surgery and clinically no evidence of underlying deeper infection -day 7 of 14 currently (2) Acute UTI: Plan: Initial concern for UTI but urine culture negative Suprapubic catheter changed due to blockage, currently is draining clear yellow urine (3) Paraplegia: Plan: Secondary to spina bifida as a child Still managing himself at home and getting out of bed and is moving around with wheelchair Has had home health nurse coming 3 times a week (4) Spina bifida: (5) Sacral decubitus ulcer: Plan: Present on admission MRI pelvis from 01/24 shows perirectal abscess for which he is being seen in [facility]ound Clinic. He was seen by OMAR here and surrounding tissue appears healthy, not requiring debridement. He will follow up with his surgeon at [facility]--has appointment in 2 weeks time MRI pelvis 02/09 without contrast negative for osteomyelitis or abscess. (6) Bacteremia: Plan: DVT prophylax Subcu Lovenox CODE STATUS Full Disposition: Patient is medically stable for discharge. HH has been arranged. He does not have transportation until tomorrow Admission and Anticipated Discharge Date Admission Date: February 03, 2022 Results & Data Results & Data ([facility]) Vital Signs (Past 12 Hours) Vital Signs Temp Pulse Resp BP Pulse Ox 02/12/22 07:48 36.8 C 79 18 128/74 97 (1) Sepsis Sepsis acute organ dysfunction status: unspecified Sepsis type: sepsis due to unspecified organism Qualified Code(s): A41.9 - Sepsis, unspecified organism
[2022-02-13] MEDS: ENOXAPARIN INJ 40 MG/0.4 ML SYR SQ SCH (08:24)
[2022-02-13] MEDS: ASCORBIC ACID 500 MG TAB PO SCH (08:25)
[2022-02-13] MEDS: POLYETHYLENE (MIRALAX) 17 GM PACK PO SCH (08:26)
[2022-02-13] MEDS: MIRABEGRON ER 25 MG TAB PO SCH (08:26)
[2022-02-13] MEDS: PANTOprazole 40 MG TAB PO SCH (08:26)
[2022-02-13] MEDS: VITAMIN B COMPLEX TAB PO SCH (08:26)
--- NOTE | 2022-02-13 09:30 | Discharge Summary ---
Date of Service February 13, 2022 Admission HPI Per Admitting Provider Is a 66-year-old male with significant past medical history including paraplegia secondary to complicated spina bifida with neurogenic bladder status post suprapubic catheter, chronic sacral decubiti, GERD, and iron deficiency anemia apparently has been complaining of passing of less urine through the Little for about 1 day and having problem with suprapubic discomfort associated with nausea and fever since this morning. He has had his catheter changed by the home health nurse this morning without much drainage and with above symptoms he was brought into the emergency room for evaluation. He denies any significant pain, any shortness of breath, any problem with his bowel habit and he does not feel any more weakness than before. He started to have sweating in the emergency room and he remained hemodynamically stable and noted to have tachycardia in the emergency room. The suprapubic catheter was replaced easily by the ER physician and the UA did show possible infection and his white count was elevated to 14,000 with elevation of lactate of 4.1. He was a started with intravenous ceftriaxone after taking blood and urine culture and given adequate amount of intravenous fluid. He was admitted to medical telemetry unit for continuation of care He has been paraplegic secondary to spina bifida. He lives alone but can manage himself and getting out of bed and moving around with a wheelchair. He has home health nurse comes 3 times a week who changes his dressing in the sacral area. Principal Diagnosis Polymicrobial Bacteremia Stage 4 Sacral Ulcer, present on admission Malfunctioning Suprapubic Catheter, present on admission Sepsis Discharge Exam Patient in no acute distress, non toxic, just finished breakfast. No events overnight. No new complaints. Asked me to call his brother Juan Sommer to review discharge plan. Discharge Data Allergies Allergy/AdvReac Type Severity Reaction Status Date / Time iodine Allergy Intermediate A Verified 02/03/22 07:04 TEEN-SKIN CONTACT BURNED THE SKIN-FELT LIKE ON FIRE adhesive Allergy Mild ADHESIVE Verified 02/03/22 07:04 TAPE RIPS SKIN APART clindamycin Allergy Mild RASH Verified 02/03/22 07:04 Iodinated Contrast Media Allergy Mild NAUSEA Verified 02/03/22 07:04 Penicillins Allergy Mild HIVES-ITCHING,HAS Verified 02/03/22 07:04 TOLERATED ANCEF IN PAST pineapple Allergy Mild "TONGUE Verified 02/03/22 07:04 WALKER AND CRACKS" vancomycin Allergy Mild hives Verified 02/07/22 19:20 aspirin AdvReac Mild GI Verified 02/03/22 07:04 SENSITIVITY Consultations 02/03/22 07:21 ED Decision to Admit Stat 02/04/22 14:16 Consult Infectious Diseases Routine 02/09/22 17:16 Consult General Surgery Routine Ordered Studies 02/09/22 09:06 MR pelvis wo con Urgent Hospital Course (1) Sepsis: (2) Paraplegia: (3) Spina bifida: (4) Sacral decubitus ulcer: (5) Bacteremia: Mr Vernon Sommer is a 66 year old man with paraplegia, bedbound status, stage 4 sacral ulcer that was present on admission, diverting ostomy, chronic suprapubic catheter was admitted 02/03 for a malfunctioning catheter, nausea and fever. Upon arrival here, he was noted to have sepsis (WBC 14K , HR 110s) and was initially started on ceftriaxone with concern for SP catheter associated infection. Later, his blood cultures were positive and his antibiotics were broadened to cefepime and vancomycin on 02/06. Vancomycin was later switched to Daptomycin on 02/07 due to patient complaint of hives while on vancomycin. Cefepime was switched to Ertapenem 02/10 after discussing with ID to facilitate once a day dosing. His blood cultures finalized as polymicrobial (Morganella morganii, enterococcus faecalis, providencia rettgeri). Repeat blood cultures 02/07 showed resolution of bacteremia. ID consulted and antibiotic regimen was discussed with them. The source of his polymicrobial bacteremia is likely his stage 4 sacral ulcer. Review of MRI pelvis w/wo contrast from outpatient obtained on 01/24/2022 showed a perirectal abscess and possibly fistula. He has been following at the Wound Care center for his sacral ulcer and has an appointment with [facility] surgery already scheduled for later this month. He had a repeat MRI pelvis 02/09 (without contrast due to reporting intolerance with prior contrast dye) which did not show abscess or fistula. He was seen by surgery and images were reviewed and his ulcer was examined and confirmed to not have any underlying abscess or fistula. He was seen by [facility] here and continued to receive wound care while in the hospital. He will need to follow up with Wound Clinic after discharge and has an appointment in 2 days. After his SP catheter was changed, he had no further suprapubic tenderness and his catheter was draining properly at the time of discharge. Patient remained in the hospital for an extra 4 days despite medical stability due to needing antibiotics to be arranged for him. Initially he insisted on going to the infusion center and this was arranged but then we discovered he does not have transportation on the weekends. After much discussion with patient, he agreed to go home with home infusion and this was arranged for him prior to discharge. His final antibiotic regimen at discharge: Daptomycin 400mg IV daily and Ertapenem 1gm IV daily. Last day of antibiotic is 02/19/2022. Ultrasound guided PIV can be removed 02/19 after last dose of antibiotic. Patient will follow up with Wound Clinic, Urology and his Primary Care doctor His Brother, Juan Sommer, was called and updated on care plan on 02/13 at patient's request. Home Health Attestation I certify that this patient is under my care and that I, or a physicians litigation assistant working with me, had a face to-face encounter that meets the home health [id number] encounter requirements with this patient. The encounter with the patient was in whole, or in part, for the following medical condition, which is the primary reason for home health care (list medical condition): I certify that, based on my findings, the following services are medically necessary home health services: My clinical findings support the need for the above services because: Further, I certify that my clinical findings support that this patient is homebound (i.e. absences from home require considerable and taxing effort and are for medical reasons or cheondoism services or infrequently or of short duration when for other reasons) because: Certification for Home Health Services: Based on the above findings, I certify that this patient is confined to the home and needs intermittent long-term care, physical therapy and/or speech therapy or continues to need occupational therapy. The patient is under my care, and I have initiated the establishment of the plan of care. This patient will be followed by a physician who will periodically review the plan of care. Total Time Total Time Spent Total Time Spent (In Minutes): 40 Discharge Plan Discharge Items Patient Disposition: Home - Home Health Services Reason For Visit: SEPSIS Discharge Diagnosis: Polymicrobial Bacteremia Stage 4 Sacral Ulcer, present on admission Malfunctioning Suprapubic Catheter, present on admission Condition on Discharge: Good Activity: Resume your previous activity Non-emergency contact: Primary Care Provider Call non-emergency contact if: you have any medication questions, your symptoms worsen and you have a fever Follow-up/Referrals: Rowena Olivas DO, FACEP [Physician] - 02/15/22 11:00 am Apolinar Herrera DO [Primary Care Provider] - 02/19/22 1:45 pm Diet: Regular Diet Texture: Easy to Chew Addtl Attending Provider Instructions: Please follow up with Wound Clinic for your sacral ulcer Please follow up with your Urologist for your suprapubic catheter Last day of Daptomycin and Ertapenem is 02/19/22. Please remove Ultrasound guided peripheral IV once antibiotic course completes Pending Studies at Discharge: No Stand-Alone Forms: My [facility], Smoking Cessation Medications and DC Order Prescriptions: New ertapenem 1 gram recon soln 1 g IV DAILY 7 Days RF: 0 daptomycin 500 mg recon soln 400 mg IV DAILY 7 Days Qty: 7 RF: 0 Continued pantoprazole 40 mg tablet,delayed release (DR/EC) 40 mg PO QAM RF: 0 Myrbetriq 25 mg tablet extended release 24 hr 25 mg PO QAM RF: 0 vitamin B complex Tablet 1 tab PO QAM RF: 0 Discharge Orders: Discharge Order (Routine); Ordered 02/13/22 Ordered By: Lisa Buckner Admission Data Admit Date/Time: 02/03/22 08:46 Attending Provider: Lisa Buckner Admit Provider: Liliana Garrido Primary Care Provider: Apolinar Herrera Other Providers: Liliana Garrido ; Tom Patel ; Les Morgan ; Akhil Huerta I. ; Uziel Cross II ; Fern Hayes ; Jaunito More ; Yaakov Yates ; Aiden Curiel ; [facility]
[2022-02-13] MEDS: ERTAPENEM SODIUM 1,000 MG in SYRINGE 0 ML IV SCH (12:24)
[2022-02-13] MEDS: DAPTOmycin 400 MG in SYRINGE 0 ML IV SCH (12:24)
== END 2022-02-13 13:09 | disposition home health service (06) | DRG 871 ==
LOC: ED 04:43 → SUATTDRO 08:46 → 2S 08:46 → 3E 02-11 09:07

== ENCOUNTER 2023-09-21 00:15 | Inpatient (IN) ==
--- NOTE | 2023-09-21 00:42 | Emergency Department Note ---
History of Present Illness General Chief complaint: Catheter Replacement Time Seen by Provider: 09/21/23 00:34 History of Present Illness Provider complaint: Catheter problem Onset (ago): day(s) 2 Maximum Pain Intensity: 6 68-year-old male presents emergency department for suprapubic catheter problem. Patient reports his catheter has been clogging and not draining enough urine for last 2 days. He reports no fevers. No trauma. No blood in his catheter. Patient states this happens infrequently and states he has had a suprapubic catheter for the last year. Home Medications Medication Instructions Recorded Confirmed Type azelastine 137 mcg (0.1 %) nasal 2 spray intranasal [facility] 06/25/23 09/21/23 History spray aerosol magnesium oxide 400 mg PO QAM 06/25/23 09/21/23 History pantoprazole 40 mg tablet,delayed 40 mg PO DAILY 06/25/23 09/21/23 History release paroxetine HCl 10 mg tablet 20 mg PO DAILY 06/25/23 09/21/23 History cefdinir 300 mg capsule 300 mg PO [facility] 09/21/23 09/21/23 History fluticasone propionate 50 2 spray intranasal QA 09/21/23 09/21/23 History mcg/actuation nasal spray,suspension Allergies Allergy/AdvReac Type Severity Reaction Status Date / Time iodine Allergy Intermediate A Verified 08/26/23 09:56 TEEN-SKIN CONTACT BURNED THE SKIN-FELT LIKE ON FIRE adhesive Allergy Mild ADHESIVE Verified 08/26/23 09:56 TAPE RIPS SKIN APART clindamycin Allergy Mild RASH Verified 08/26/23 09:56 Iodinated Contrast Media Allergy Mild NAUSEA Verified 08/26/23 09:56 Penicillins Allergy Mild HIVES-ITCHING,HAS Verified 08/26/23 09:56 TOLERATED ANCEF IN PAST pineapple Allergy Mild "TONGUE Verified 08/26/23 09:56 WALKER AND CRACKS" vancomycin Allergy Mild hives Verified 08/26/23 09:56 aspirin AdvReac Mild GI Verified 08/26/23 09:56 SENSITIVITY Past Med/Surg History Medical History Slow to wake up after anesthesia History of frequent urinary tract infections Environmental allergies Little catheter in place suprapubic catheter Chronic allergic rhinitis Hx of Clostridium difficile infection dx years ago Hx MRSA infection stool, dx years ago Hx of migraines History of palpitations hx holter monitoring>no findings; f/u PCP Stage IV pressure ulcer of buttock IBS (irritable bowel syndrome) Anxiety and depression HTN (hypertension) Seasonal allergies Schatzki's ring Wheelchair bound Decubitus ulcer CHRONIC; FOLLOWS W/ WOUND CLINIC- right groin area currently Chronic back pain Osteoarthritis Kidney stones Neurogenic bladder Colostomy in place Chronic gum disease Tinnitus RT EAR Hearing deficit RT EAR History of febrile seizure X 1; CHILDHOOD Deep vein thrombosis > 10 YEARS AGO - TREATED W/ BLOOD THINNERS - R/T IMMOBILITY Dysphagia Spina bifida [employer] Paraplegia from the waist down-confined to wheelchair Surgical History History of suprapubic catheter History of esophagogastroduodenoscopy (EGD) History of sinus surgery History of surgery RT HIP WOUND DEBRIDEMENT W/ SKIN GRAFTING History of exploratory laparotomy History of incisional hernia repair X5 History of anesthesia reaction SLOW TO WAKE 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 History of cystoscopy W/ STONE EXTRACTION History of colonoscopy History of lithotripsy Status post myringotomy with insertion of tube History of tooth extraction History of esophageal dilatation Family History Other No family history of adverse response to anesthesia Social History Smoking Status: Former smoker Second Hand Exposure: No; Do You Dip or Chew Tobacco: No; Hx Alcohol Use: No Hx Substance Use: No Preferred Language: Bulgarian Communication Ability: Effective Transformation Specialist Required: No Beliefs That Will Affect Care: None marital status: Single Current Living Situation: Alone Current Living Situation Comment: 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 How many Children do You have: 0 Feels Safe at Home: Yes Assistive Devices: Glasses, Hospital Bed and Wheelchair Physical Exam Vital Signs Vital Signs - 24 hr 09/21/23 00:24 09/21/23 00:36 09/21/23 00:48 Temperature 36.5 C Temperature Source Temporal Artery Scan Pulse Rate 91 H 86 101 H Respiratory Rate 18 18 Respiratory Effort / Characteristics Non-Labored Spontaneous Respiratory Depth Normal Blood Pressure 123/71 126/68 Blood Pressure Mean 88 87 Pulse Oximetry 96 Oxygen Delivery Method Room Air Sepsis New/Unexplained Change in Mental Status N/A Sepsis Action Taken by Nursing No Action Required 09/21/23 01:00 09/21/23 01:14 09/21/23 01:30 Temperature Temperature Source Pulse Rate 80 73 Respiratory Rate 13 17 Respiratory Effort / Characteristics Respiratory Depth Blood Pressure Blood Pressure Mean Pulse Oximetry 99 100 Oxygen Delivery Method Room Air Room Air Sepsis New/Unexplained Change in Mental Status Sepsis Action Taken by Nursing 09/21/23 02:00 Temperature Temperature Source Pulse Rate 73 Respiratory Rate 16 Respiratory Effort / Characteristics Respiratory Depth Blood Pressure 115/58 L Blood Pressure Mean 77 Pulse Oximetry 99 Oxygen Delivery Method Room Air Sepsis New/Unexplained Change in Mental Status Sepsis Action Taken by Nursing Physical Exam HENT: Exam performed. - Head: Normocephalic and atraumatic. - Mouth/Throat: The oropharynx is clear and moist. No trismus in the jaw. No dental abscesses or uvula swelling. No oropharyngeal exudate or tonsillar abscesses. EYES: Conjunctivae and EOM are normal. Pupils are equal, round, and reactive to light. Right eye exhibits no discharge. Left eye exhibits no discharge. No scleral icterus. NECK: Normal range of motion. Neck supple. No JVD present. CV: Normal rate, regular rhythm, normal heart sounds and intact distal pulses. There is no peripheral edema. Palpable radial pulses bue. PULM/CHEST: Effort normal and breath sounds normal. No respiratory distress. No stridor. He has no wheezes. He has no rales. ABD: The abdomen is soft. Colostomy bag in place. No pain on palpation of the abdomen. Suprapubic catheter is in place with some urine in the catheter. Course Course 0034: The patient was evaluated in room B3. A complete history and physical exam was performed Cardiac monitoring: An order was placed for continuous cardiac monitoring. The monitor shows a rate of 90 with sinus rhythm interpreted by me 0108: Nursing staff reports that the patient's suprapubic catheter was able to be flushed and is now draining appropriately. 0230: Vital signs stable. Labs show normal white blood cell normal procalcitonin and normal lactic acid level. Potassium is low. Patient will be admitted for potassium repletion. Discussed case with Dr. Richard who will evaluate the patient for admission. Administered Medications Potassium Chloride (K Veto / Wtr) 10 meq in 100 mls @ 100 mls/hr IV Q1H LESLI Stop: 09/21/23 04:29 Last Admin: 09/21/23 04:20 Dose: 100 mls/hr Documented By: STACI Magnesium Sulfate/Dextrose (Magnesium Sulfate / D5w) 1 gm in 100 mls @ 50 mls/hr IV ONE STA Stop: 09/21/23 04:30 Last Admin: 09/21/23 03:08 Dose: 50 mls/hr Documented By: STACI Discontinued Medications Sodium Chloride (Nss) 500 mls @ 125 mls/hr IV .Q4H LESLI Stop: 10/21/23 01:29 Last Admin: 09/21/23 02:07 Dose: 125 mls/hr Documented By: TWIN Sodium Chloride (Nss) 500 mls @ 999 mls/hr IV .Q31M ONE Stop: 09/21/23 01:49 Last Infusion: 09/21/23 02:53 Dose: Infused Documented By: Admin: 09/21/23 02:07 Dose: 999 mls/hr Documented By: TWIN Ketorolac Tromethamine (Ketorolac Tromethamine 15 Mg/Ml Vial) 15 mg IV NOW STA Stop: 09/21/23 03:32 Last Admin: 09/21/23 04:20 Dose: 15 mg Documented By: STACI Potassium Chloride (Potassium Chloride 10 Meq Tabcr) 40 meq PO NOW STA Stop: 09/21/23 02:26 Last Admin: 09/21/23 03:10 Dose: Not Given Documented By: STACI Potassium Chloride (Potassium Chloride Pwd 20 Meq Pack) 40 meq PO NOW STA Stop: 09/21/23 03:25 Last Admin: 09/21/23 04:20 Dose: 40 meq Documented By: STACI Medical Decision Making Medical Records Attestation: I reviewed the patient's medical records. External medical records reviewed. Patient was seen in June 2023 for similar episode as well as in January 2023 for similar episode. During both of this times patient had to have his suprapubic catheter exchanged with a 24F Little catheter. In June 2023 the patient became hypotensive and had labs drawn which showed a white count of 30 and a procalcitonin of 33.5 had to be admitted to the hospital for urosepsis. Laboratory Data Attestation: I reviewed the patient's lab results. 09/21/23 01:00 09/21/23 01:00 Lab Results 09/21/23 09/21/23 Range/Units 01:00 01:10 WBC 6.51 (4.8-10.8) K/ul RBC 4.95 (4.70-6.10) M/uL Hgb 12.0 L (14.0-18.0) g/dl Hct 38.4 L (42.0-52.0) % MCV 77.6 L (80.0-100.0) fL MCH 24.2 L (25.0-34.0) pg MCHC 31.3 L (32.0-36.0) g/dL RDW Std Deviation 43.8 (36.4-46.3) fL RDW Coeff of Sebastian 15.8 H (11.5-14.5) % Plt Count 400 (130-400) K/uL MPV 8.7 L (9.4-12.4) fL Immature Gran % (Auto) 0.3 % Neut % (Auto) 64.9 % Lymph % (Auto) 19.0 % [place] % (Auto) 10.0 % Eos % (Auto) 5.5 % Baso % (Auto) 0.3 % Neut # (Auto) 4.22 (1.40-6.50) K/uL Lymph # (Auto) 1.24 (1.20-3.40) K/uL [place] # (Auto) 0.65 H (0.11-0.59) K/uL Eos # (Auto) 0.36 (0.00-0.50) K/uL Baso # (Auto) 0.02 (0.00-0.20) K/uL Immature Gran # (Auto) 0.02 (0.01-0.20) K/uL Sodium 137 (136-145) mmol/L Potassium 2.8 L (3.5-5.1) mmol/L Chloride 101 (98-107) mmol/L Carbon Dioxide 28 (21-32) mmol/L Anion Gap 8 (3-11) BUN 14 (6-23) mg/dl Creatinine 0.52 L (0.6-1.4) mg/dl Est Cr Clr Drug Dosing Not Reportable Est GFR ( Amer) 125.2 ml/min Est GFR (Non-Af Amer) 108.0 ml/min BUN/Creatinine Ratio 26.9 H (10-20) Glucose 107 H (70-99(Fasting)) mg/dl Lactate 1.6 (0.4-2.0) mmol/L Calcium 9.2 (8.6-10.3) mg/dl Magnesium 1.6 L (1.7-2.4) mg/dl Procalcitonin 0.13 (0-0.5) ng/ml Urine Color Cancelled Urine Appearance Cancelled Urine pH Cancelled Ur Specific [place] Cancelled Urine Protein Cancelled Urine Glucose (UA) Cancelled Urine Ketones Cancelled Urine Blood Cancelled Urine Nitrite Cancelled Urine Bilirubin Cancelled Urine Urobilinogen Cancelled Ur Leukocyte Esterase Cancelled Urine WBC (Auto) Cancelled Urine RBC (Auto) Cancelled U Hyaline Cast (Auto) Cancelled U Epithel Cells (Auto) Cancelled Urine Bacteria (Auto) Cancelled Ur Renal Epithelial Cell Cancelled Urine Crystals Cancelled Calcium Oxalate Crystal Cancelled Uric Acid Crystals Cancelled Triple Phos Crystals Cancelled Other Crystals Cancelled Amorphous Sediment Cancelled Granular Casts Cancelled Waxy Casts Cancelled RBC Casts Cancelled WBC Casts Cancelled Other Casts Cancelled Urine Mucus Cancelled Urine Other Cancelled Urine Trichomonas Cancelled Urine Yeast Cancelled Urine Sperm Cancelled Ur Oval Fat Bodies Cancelled MDM Narrative 0034: The patient was evaluated in room B3. A complete history and physical exam was performed Cardiac monitoring: An order was placed for continuous cardiac monitoring. The monitor shows a rate of 90 with sinus rhythm interpreted by me 0108: Nursing staff reports that the patient's suprapubic catheter was able to be flushed and is now draining appropriately. 0230: Vital signs stable. Labs show normal white blood cell normal procalcitonin and normal lactic acid level. Potassium is low. Patient will be admitted for potassium repletion. Discussed case with Dr. Richard who will evaluate the patient for admission. Impression & Plan Hypokalemia, Malfunction of indwelling urinary catheter Discharge Plan Visit Data Chief Complaint: Catheter Replacement ED Provider: Misbah Uribe Discharge Problem: Hypokalemia, Malfunction of indwelling urinary catheter Patient Disposition: Being Evaluated by Hospitalist Forms Stand Alone Forms: [facility], [facility] Prescriptions Prescriptions: No Action paroxetine HCl 10 mg tablet 20 mg PO DAILY pantoprazole 40 mg tablet,delayed release (DR/EC) 40 mg PO DAILY azelastine 137 mcg (0.1 %) aerosol,spray 2 spray INTRANASAL [facility] magnesium oxide 400 mg magnesium capsule 400 mg PO QAM cefdinir 300 mg capsule 300 mg PO [facility] fluticasone propionate 50 mcg/actuation spray,suspension 2 spray INTRANASAL QAM Referrals Referrals: Apolinar Herrera DO [Primary Care Provider] -
[2023-09-21] MEDS ORDERED: SODIUM CHLORIDE 0.9% 500 ML IV ONE (01:19)
[2023-09-21] MEDS ORDERED: SODIUM CHLORIDE 0.9% 500 ML IV SCH (01:30)
[2023-09-21 01:36] LABS: Basophils # (auto) 0.02 K/uL (0.00-0.20); Basophils % (auto) 0.3 %; Eosinophils # (auto) 0.36 K/uL (0.00-0.50); Eosinophils % (auto) 5.5 %; Hematocrit (blood only) 38.4 % (42.0-52.0); Immature Granulocytes # (auto) 0.02 K/uL (0.01-0.20); Immature Granulocytes % (auto) 0.3 %; Lymphocytes # (auto) 1.24 K/uL (1.20-3.40); Mean Corpuscular Hemoglobin 24.2 pg (25.0-34.0); Mean Corpuscular Hgb Conc 31.3 g/dL (32.0-36.0); Mean Corpuscular Volume 77.6 fL (80.0-100.0); Mean Platelet Volume 8.7 fL (9.4-12.4); Monocytes # (auto) 0.65 K/uL (0.11-0.59); Neutrophils # (auto) 4.22 K/uL (1.40-6.50); Neutrophils % (auto) 64.9 %; Platelet Count 400 K/uL (130-400); RDW Coefficient of Variation 15.8 % (11.5-14.5); RDW Standard Deviation 43.8 fL (36.4-46.3); Red Blood Count 4.95 M/uL (4.70-6.10); White Blood Count 6.51 K/ul (4.8-10.8)
[2023-09-21 01:37] LABS: Anion Gap 8 (3-11); BUN Creatinine Ratio 26.9 (10-20); Blood Urea Nitrogen 14 mg/dl (6-23); Calcium 9.2 mg/dl (8.6-10.3); Carbon Dioxide 28 mmol/L (21-32); Chloride 101 mmol/L (98-107); Est GFR (African American) 125.2 ml/min; Glucose 107 mg/dl (70-99(Fasting)); Potassium 2.8 mmol/L (3.5-5.1); Sodium 137 mmol/L (136-145)
--- OUTSIDE RECORDS SUMMARY | 2023-09-21 02:06 | External Medical Summary | Summary of Care ---
Author Name Unknown Organization [facility] Address [address] [place] [address] Phone [phone] Care Team Providers Care Cotton Ball Machine Tender Name Role Phone Apolinar Herrera DO Primary Care Provider Reason for Visit * Reason Onset Date Comments Surgery 09/18/2023 To schedule Encounter Details Date Type Department Care Team (Late st Contact Info) Description 09/18/2023 Telephone Urology, [facility] [address] [place] [address] Joslyn Gonsalez MD [address] [place] [address] Surgery (To schedule) Allergies Active Allergy Reactions Criticality Noted Date Comments Adhesive Tape 01/03/1999 Silk tape ( not true allergy), preeti brand ostomy wafer - skin breaks out Aspirin 01/03/1999 GI upset Clindamycin Rash 02/09/2014 Penicillins 07/17/2013 Rash 2012 while on ampicillin for skin decubitus wound Bilat lower extremity pruritic rash when taken for UTI- 04/2019 Pineapple 12/12/2012 Cleaning tongue Povidone Iodine 01/03/1999 Rash, reports hives Vancomycin Hives High 02/08/2022 documented as of this encounter (statuses as of 09/18/2023) Medications Medication Sig Dispensed Refills Start Date End Date Status SALINE NASAL SPRAY 0.65 % NA SOLN Administer into nostril. 0 Active Polyethylene Glycol 3350 17 GM/SCOOP Oral PowderIndications:as needed Take by mouth. Indications: as needed 0 Active Zinc Plus Vitamin C 50-90 MG Oral Capsule (Zinc Oxide-Vitamin C) Take by mouth daily . 0 Active Nystatin 497773 UNIT/GM External Cream Apply topically to affected area 3 times a day. To affacted area 90 g 5 11/26/2022 Active Magnesium Oxide 400 MG Oral CapsuleIndications:C hronic tension-type headache, not intractable Take 1 Capsule by mouth in the morning. 30 Capsule 5 12/10/2022 Active PARoxetine HCl 10 MG Oral Tablet (Paxil) Take 1 tablet by mouth daily for 2 weeks then take 2 tablets by mouth daily 180 Tablet 3 01/07/2023 Active Sodium Hypochlorite 0.25 % External SolutionIndications: Pressure injury of right ischium, stage 4 (HCC) Apply topically to affected area daily. 473 mL 2 03/28/2023 Active Azelastine HCl 0.1 % Nasal Solution (Astelin) Administer 2 Sprays into nostril in the morning and 2 Sprays before bedtime. 90 mL 3 04/09/2023 Active Fluticasone Propionate 50 MCG/ACT Nasal Suspension (Flonase) Administer 2 Sprays into each nostril in the morning. 48 g 3 04/09/2023 Active Pantoprazole Sodium 40 MG Oral Tablet Delayed Release (Protonix) TAKE 1 TABLET BY MOUTH EVERY DAY 90 Tablet 1 05/01/2023 Active Acetaminophen 325 MG Oral Capsule Take by mouth. 0 Active Sodium Chloride Flush 0.9 % Intravenous Solution Flush catheter with one syringe (10 mL) every morning. 300 mL 3 08/08/2023 Active Ibuprofen 200 MG Oral Tablet (Motrin) Take 2 Tablets by mouth every 4 hours as needed. 0 Active Cefdinir 300 MG Oral Capsule (Omnicef) Take 1 Capsule by mouth in the morning and 1 Capsule before bedtime. 14 Capsule 0 09/13/2023 Active documented as of this encounter (statuses as of 09/18/2023) Active Problems Problem Noted Date Diagnosed Date Ventral hernia 05/16/2022 Medical home patient encounter 05/16/2022 Renal calculi 03/24/2020 Pressure ulcer of ischial area, stage 4 03/10/20 20 Overview: Pressure ulcer of R ischium Acquired absence of other right toe(s) 9 Spina bifida of lumbosacral region without hydro cephalus 05/01/2017 Wheelchair dependence 05/01/2017 Parastomal hernia without obstruction or gangren e 11/01/2015 Parastomal hernia 04/22/2015 Meniere's disease 10/19/2010 Neurogenic bladder 12/03/2006 Iron deficiency anemia 12/03/2006 Gastroesophageal reflux disease with esophagitis 12/03/2006 Colostomy status 11/05/2005 Paraplegia 01/03/1999 CATHIE (generalized anxiety disorder) 01/03/1999 documented as of this encounter (statuses as of 09/18/2023) Resolved Problems Problem Noted Date Diagnosed Date Resolved Date Acute pyelonephritis 07/01/2023 023 Septic shock 06/25/2023 07/10/2023 Food insecurity 05/22/2021 08/22/2023 Overview: Per [facility] Protocol Hx of sepsis 11/04/2017 09/21/2019 Sepsis 10/21/2017 11/04/2017 Acute respiratory failure with hypoxia 04/25/2015 11/01/2015 Severe sepsis with acute organ dysfunction 04/25/2015 11/01/2015 Decubitus ulcer of buttock 09/05/2012 0 01/08/2017 Overview: ICD-10 update of inactive term Asthma with severity to be determined 03/02/2010 08/17/2014 Overview: Per Asthma Taxonomy ICD-10 update of inactive term Decubitus ulcer of buttock 12/14/2009 0 01/08/2017 Overview: ICD-10 update of inactive term Asthma, allergic 04/06/2009 03/02/2010 Other constipation 09/17/2005 7 Reflux esophagitis 09/17/2005 9 ADVANCE DIRECTIVE INFORMATION 04/18/2005 09/21/2019 Overview: No, Advance Directive brochure given to patient. Decubitus ulcer of buttock 12/11/2004 1 Decubital ulcer 07/05/2004 07/09/2019 Allergic rhinitis 08/20/2003 09/21/2019 CHRONIC ULCER OF LEG 11/08/1999 010 Adjustment disorder with depressed mood 05/10/1999 04/27/2022 Pressure ulcer 01/03/1999 12/11/2004 Overview: ICD-10 update of inactive term URIN TRACT INFECTION NOS 01/03/199905/2020 SPINA BIFIDA 05/01/2017 documented as of this encounter (statuses as of 09/18/2023) Immunizations Name Administration Dates Next Due COVID-19 mRNA, LNP-s, No Pre serve, 2-Dose Series (TrustHop) 07/11/2021,12/23/2020,12/02/2020 Covid-19, Mrna, Lnp-s, Pf, B ivalent, 30 Mcg, IM, 12 yrs and above (Pfizer) 07/24/2022 Pneumococcal Conjugate Vacci ne, 20-valent ([id number]) 12/28/2022 Pneumococcal Polysaccharide PPV23 (Pneumovax) 12/12/2021,10/22/2016 Season Influenza, Quad, PF, Adjuvanted, 65+ Yrs, IM (FLUAD) 07/11/2021,06/30/2020 Seasonal Influenza, PF, 6 M & above, IM , (FluLaval or Fluzone) 06/18/2022 Seasonal Influenza, Quadriva lent Hd (Fluzone Hd) 06/04/2023 Seasonal Influenza, Split, I IV3, No Preserve, Inj 05/20/2009 Seasonal Influenza, Split, I IV3, With Preserve, Inj 05/26/2015,06/06/2013,06/03/2012,07/25,06/19/2010 Seasonal Influenza, Trivalen t, Adjuvanted, 65+ yrs 07/11/2021 TD - Tetanus/Diptheria (ADULT) 06/16/2006 TDAP (age 10 and older)(Boostrix) 03/17/2017 TDAP (age 11 and older)(Adacel) 06/03/2012 Varicella Zoster Vaccine (Adult) 11/18/2014 Zoster Vaccine Recombinant (Shingrix) 07/21/2021 ,05/02/2021 documented as of this encounter Social History Tobacco Use Types Packs/Day Years Used Date Smoking Tobacco: Former Cigarettes Q uit: 03/15/1974 Smokeless Tobacco: Never Comments:1 cigarette daily f or approximately 6 weeks. quit in early Alcohol Use Standard Drinks/Week Comments Yes 0 (1 standard drink = 0.6 oz pur e alcohol) socially PHQ-2 Answer Date Recorded PHQ Adult Total Score 1 09/05/2023 Hunger Vital Sign Answer Date Recorded Within the past 12 months, y ou worried that your food would run out before you got the money to buy more. Never true 09/05/20 Within the past 12 months, t he food you bought just didn't last and you didn't have money to get more. Never true 09/05/2023 Sex and Gender Information Value Date Recorded Sex Assigned at Male 06/30/2020 10:41 AM EDT Gender Identity Male 06/30/2020 10:41 AM EDT Sexual Orientation Straight 06/30/2020 10 :41 AM EDT Job Start Date Occupation Industry Not on file Not on file Not on file documented as of this encounter Functional Status Functional Status Response Date of Assess ment Are you deaf or do you have serious difficulty hearing? No 06/25/2023 Are you blind or do you have serious difficulty seeing, even when wearing glasses? Yes-Wears glasses 06/25/2023 Do you have serious difficul ty walking or climbing stairs? (5 years old or older) Yes 07/09/2023 Do you have difficulty dress ing or bathing? (5 years old or older) Yes 06/25/2023 Because of a physical, menta l, or emotional condition, do you have difficulty doing errands alone such as visiting a doctor s office or shopping? (15 years old or older) Yes 06/25/20 Cognitive Status Response Date of Assessm ent Because of a physical, menta l, or emotional condition, do you have serious difficulty concentrating, remembering, or making decisions? (5 years old or older) Yes 06/25/2023 documented as of this encounter Miscellaneous Notes * Telephone Encounter - Gregoria Gordon OSA - 09/18/2023 2:08 PM EST Pt's brother returned my call and is willing to bring his brother into meet with Dr. Gonsalez but wouldlike to wait till November. I relay message to Dr. Gonsalez documented in this encounter Plan of Treatment Upcoming Encounters Date Type Department Care Team (Late st Contact Info) Description 09/20/2023 11:00 AM EST Home Visit Care Coordination and Integration [address] [place] [address] Juhi Dotson, [facility] Automotive Parts Manager [address] [place] [address] 10/01/2023 11:00 AM EST Nurse Only Urology, [facility] [address] [place] [address] [facility], Nurse Urology [facility] [address] [place] [address] 10/03/2023 10:00 AM EST Office Visit Dermatology, [address] [address] Marian Álvarez PA-C [address] [place] [address] [place] [address] 10/04/2023 1:00 PM EST Office Visit Wound Care, [facility] [address] [facility] [place] [address] Parker Valdez MD [address] [place] [facility] [place] [address] 10/11/2023 12:45 PM EST Telemedicine General Surgery, [address] [address] Neno Crum MD [address] [place] [address] 10/15/2023 11:30 AM EST Office Visit Allergy/Immunology [facility] [address] [facility] [place] [address] Kateryna Judge PA-C [address] [facility] [place] [address] 11/13/2023 2:30 PM EST Office Visit Urology, [facility] [address] [place] [address] Joslyn Gonsalez MD [address] [place] [address] 12/04/2023 10:45 AM EDT Office Visit Urology, [facility] [address] [place] [facility] [place] [address] Peterson Graves MD [address] [place] [address] 04/10/2024 2:30 PM EDT Office Visit Urology Danica Holman [address] [place] [address] Peterson Graves MD [address] [place] [address] Health Maintenance Due Date Last Done Comments Fecal Occult Blood Test 1998 Sigmoidoscopy 1998 COVID-19 Vaccine ( season) 2023 07/24/2022, 07/24/2022, 07/11/2021, Additional history exists Cologuard 05/14/2024 05/14/2021, 04/11, 05/08/2021, Additional history exists Depression Screening 09/05/2024 09/05/2023 Lipid Panel 06/30/2025 06/30/2020, 04/10, 04/16/2016, Additional history exists DTaP,Tdap,and Td Vaccines (3 - Td or Tdap) 03/17/2027 03/17/2017, 06/03/2012, 06/16/2006 Colonoscopy 09/13/2032 09/13/2022, 01/24/2004 Colorectal Cancer Screening 09/13/2032 Zoster Vaccines Completed 07/21/2021, 04/10, 11/18/2014 Pneumococcal Vaccine: 65+ Years Completed 03/26/2023, 12/28/2022, 12/12/2021, Additional history exists AAA Screening Completed 06/04/2023, 04/2022, 07/10/2021, Additional history exists Influenza Vaccine (FLU shot) Completed , 06/04/2023, 06/18/2022, Additional history exists GARDASIL-HPV IMMUNIZATION SERIES Aged Out No longer eligible based on patient's age to complete this topic Hepatitis B Aged Out No longer eligi ble based on patient's age to complete this topic MENINGOCOCCAL (MENACTRA/MENVEO) Aged Out No longer eligible based on patient's age to complete this topic documented as of this encounter Medical Devices Implanted Type Area Editor Newspaper Device Identifier Shelf Expiration Date Model / Serial / Lot [facility] Square 30cm X 30cm - [id number] Implanted:Qty : 1 on 04/21/2015 by Neno Crum MD at OR [facility] N/A: Abdomen [employer] 01/07/2020 [id number] / / [id number] Mesh Capsure Fixation 30 - [id number] Implanted:Qty : 1 on 05/15/2022 by Neno Crum MD at OR [facility] CR BARD : DAVOL 08/06/2022 [id number] / / Cath Pwr Picc Solo Inj 4f - [id number] Implanted:Qty : 1 on 07/04/2023 at [facility] CR BARD : [employer] [id number] 11/06/2024 [id number] / / [id number] Cath Drain Rashad Varghese 12f - [id number] Implanted:Qty : 1 on 09/12/2023 by Chalino Walker MD at OR [facility] COOK : [employer] [id number] 01/23/2026 [id number] / / [id number] documented as of this encounter Advance Directives Latest Code Status on File Code Status Date Activated Date Inactivated Comments Full Code 06/25/2023 2:51 PM 07/10/2023 6:07 PM This order reflects the patients wishes and were consensually agreed upon. Question Answer Comments Discussion of Advance Directives occurred with: Patient Code Status History Code Status Date Activated Date Inactivated Comments Full Code 05/15/2022 6:08 PM 06/01/2022 2:30 PM Question Answer Comments Discussion of Advance Directives occurred with: Not Discussed due to patient's condition Full Code 05/15/2022 10:27 AM 05/15/2022 6:08 PM Question Answer Comments Discussion of Advance Directives occurred with: Not Discussed due to patient's condition Full Code 11/08/2021 1:23 PM 11/08/2021 8:45 PM This or mary reflects the patients wishes and were consensually agreed upon. Full Code 11/08/2021 10:31 AM 11/08/2021 1:23 PM This o rder reflects the patients wishes and were consensually agreed upon. Care Teams Cotton Ball Machine Tender Relationship Specialty Start Date End Date Apolinar Herrera DO [address] [place] [address] PCP - General Family Medicine 03/27/18 documented as of this encounter
--- OUTSIDE RECORDS SUMMARY | 2023-09-21 02:07 | External Medical Summary | Summary of Care ---
Author Name Unknown Organization [facility] Address [address] [place] [address] Phone [phone] Care Team Providers Care Certified Medical Technician Assistant Name Role Phone Apoilnar Herrera DO Primary Care Provider Reason for Visit * Reason Onset Date Comments Surgery 09/17/2023 Procedure cancel ed Encounter Details Date Type Department Care Team (Late st Contact Info) Description 09/17/2023 Telephone Urology, [place] [address] [place] [address] Joslyn Gonsalez MD [address] [place] [address] Surgery (Procedure canceled) Allergies Active Allergy Reactions Criticality Noted Date [...] as of this encounter (statuses as of 09/17/2023) Medications Medication Sig Dispensed Refills Start Date End Date Status SALINE NASAL SPRAY 0.65 % NA SOLN Administer into nostril. 0 Active Polyethylene Glycol 3350 17 GM/SCOOP Oral PowderIndications:as needed Take by mouth. Indications: as needed 0 Active Zinc Plus Vitamin C 50-90 MG Oral Capsule (Zinc Oxide-Vitamin C) Take by mouth daily . 0 Active Nystatin 952446 UNIT/GM External Cream Apply topically to affected [...] as of this encounter (statuses as of 09/17/2023) Active Problems Problem Noted Date Diagnosed Date [...] as of this encounter (statuses as of 09/17/2023) Resolved Problems Problem Noted Date Diagnosed Date [...] as of this encounter (statuses as of 09/17/2023) Immunizations Name Administration Dates Next Due COVID-19 mRNA, LNP-s, No Pre serve, 2-Dose Series (Pfizer) 07/11/2021,12/23/2020,12/02/2020 Covid-19, Mrna, Lnp-s, Pf, B ivalent, 30 Mcg, IM, 12 yrs and above (Pfizer) 07/24/2022 Pneumococcal Conjugate Vacci ne, 20-valent ([id number]) 12/28/2022 Pneumococcal Polysaccharide PPV23 (Pneumovax) 12/12/2021,10/22/2016 Season [...] Telephone Encounter - Gregoria Gordon OSA - 09/17/2023 2:15 PM EST Called pt to to explain that the procedure was plaining on doing can not be done at [place]. Pt requested that I call his brother and explain as pt depends on him for transportation. I called brother Santos and attempted to explain that the procedure that was planned for here could not bedone at [place]. He insisted that the procedure was done by Dr. Villarreal and he was happy with the results and did not feel that pt needed to come to [place] for surgery. He wants to give his brother abreak from all this and feels that it is inconvenient for them to come to [place]. Dr. Gonsalez is aware. documented in this encounter Plan of Treatment Upcoming Encounters Date Type Department Care Team (Late st Contact Info) Description 09/20/2023 11:00 AM EST Home Visit Care Coordination and Integration [address] [place] [address] Juhi Dotson, [facility] Internet Marketing Manager [address] [place] [address] 10/01/2023 11:00 AM EST Nurse Only [facility]rology, [facility] [address] [facility] [address] [facility], Nurse Urology [facility] [address] [place] [address] 10/03/2023 10:00 AM EST Office Visit Dermatology[address] [address] Marian Álvarez PA-C [address] [place] [address] [place] [address] 10/04/2023 1:00 PM EST Office Visit Wound Care, [place] [address] [place] [address] Parker Valdez MD [address] [place] [address] 10/11/2023 12:45 PM EST Telemedicine General Surgery, [address] [address] Neno Crum MD [address] [place] [address] 10/15/2023 11:30 AM EST Office Visit Allergy/Immun[facility] [address] [place] [address] Kateryna Judge PA-C [address] [place] [address] 12/04/2023 10:45 AM EDT Office Visit Urology, [facility] [address] [place] [facility] [place] [address] Peterson Graves MD [address] [place] [address] 04/10/2024 2:30 PM EDT Office Visit Urology Danica Holman [address] [place] [address] Peterson Graves MD [address] [place] [address] Health Maintenance Due Date Last Done Comments [...] this encounter Medical Devices Implanted Type Area Fishing Instructor Device Identifier Shelf Expiration Date Model / Serial / Lot [facility] Square 30cm X 30cm - [id number] Implanted:Qty : 1 on 04/21/2015 by Neno Crum MD at OR [facility] N/A: Abdomen [employer] 01/07/2020 [id number] / / [id number] Mesh Capsure Fixation 30 - [id number] Implanted:Qty : 1 on 05/15/2022 by Neno Crum MD at OR [facility] CR BARD : DAVOL 08/06/2022 [id number] / / Cath Pwr Picc Solo Inj 4f - [id number] Implanted:Qty : 1 on 07/04/2023 at [facility] CR BARD : [employer] [id number] 11/06/2024 [id number] / / [id number] Cath Drain Solorzano Varghese 12f - [id number] Implanted:Qty : 1 on 09/12/2023 by Chalino Walker MD at OR [facility] COOK : [employer] [id number] 01/23/2026 [id number] / / [id number] documented as of this encounter Advance Directives [...] and were consensually agreed upon. Care Teams Certified Medical Technician Assistant Relationship Specialty Start Date End Date Apolinar Herrera DO [address] [place] [address] PCP - General Family Medicine 03/27/18 documented as of this encounter
--- OUTSIDE RECORDS SUMMARY | 2023-09-21 02:07 | External Medical Summary | Summary of Care ---
Author Name Unknown Organization [facility] Address [address] [place] [address] Phone [phone] Care Team Providers Care Pouch Maker Name Role Phone Apolinar Herrera DO Primary Care Provider Encounter Details Date Type Department Care Team (Late st Contact Info) Description 09/13/2023 Telephone Care Coordination and Integration [address] [place], [place] [phone] Juhi Dotson, Community Health Route Returner [address] [place], [place] [phone] Allergies Active Allergy Reactions Criticality Noted Date [...] as of this encounter (statuses as of 09/13/2023) Medications Medication Sig Dispensed Refills Start Date End Date Status SALINE NASAL SPRAY 0.65 % NA SOLN Administer into nostril. 0 Active Polyethylene Glycol 3350 17 GM/SCOOP Oral PowderIndications:as needed Take by mouth. Indications: as needed 0 Active Zinc Plus Vitamin C 50-90 MG Oral Capsule (Zinc Oxide-Vitamin C) Take by mouth daily . 0 Active Nystatin 259689 UNIT/GM External Cream Apply topically to affected [...] as of this encounter (statuses as of 09/13/2023) Active Problems Problem Noted Date Diagnosed Date [...] as of this encounter (statuses as of 09/13/2023) Resolved Problems Problem Noted Date Diagnosed Date [...] Other constipation 09/17/2005 7 Reflux esophagitis 09/17/2005 10/29/200 9 ADVANCE DIRECTIVE INFORMATION 04/18/2005 09/21/2019 Overview: [...] as of this encounter (statuses as of 09/13/2023) Immunizations Name Administration Dates Next Due COVID-19 mRNA, LNP-s, No Pre serve, 2-Dose Series ([employer]) 07/11/2021,12/23/2020,12/02/2020 Covid-19, Mrna, Lnp-s, Pf, B ivalent, 30 Mcg, IM, 12 yrs and above (Pfizer) 07/24/2022 Pneumococcal Conjugate Vacci ne, 20-valent ([id number]) 12/28/2022 Pneumococcal Polysaccharide PPV23 (Pneumovax) 12/12/2021,10/22/2016 Season [...] money to buy more. Never true 09/05/20 23 Within the past 12 months, t he [...] encounter Miscellaneous Notes * Telephone Encounter - Juhi Dotson, Community Health Route Returner - 09/13/2023 12:50 PM EST AJAY arrived at patients apartment for home visit and rang door strange and knocked twice and no answer. AJAY then called patients cell phone and patient answered and informed AJAY that he was not able to do home visit today and wanted to reschedule however he did not have the phone number to call and request this. AJAY reported that AJAY would have scheduling call him to reschedule. Juhi Dotson- AJAY Support Services/[facility] [facility] [email or web address] documented in this encounter Plan of Treatment Upcoming Encounters Date Type Department Care Team (Latest Contact Info) Description 09/30/2023 1:30 PM EST Office Visit Urology, [facility] [place] [address] [place] [address] Kyle Stubbs PA-C [address] [place] [address] 09/30/2023 2:40 PM EST Office Visit [address] [address] Jules Vicente MD [address] [place] [address] 10/01/2023 11:00 AM EST [facility] [address] [place] [address] [place] Nurse Urology Александр [address] [place] [address] 10/03/2023 10:00 AM EST Office Visit Dermatology, [address] [address] Marian Álvarez, PADarlene [address] [place] [address] [place] [address] 10/04/2023 1:00 PM EST Office Visit Wound Care, [facility] [address] [facility] [place] [place] [phone] Parker Valdez MD [address] [place], [place] [address] 10/11/2023 12:45 PM EST Telemedicine General Surgery, [address] [address] Neno Crum MD [address] [place], [place] [address] 10/15/2023 11:30 AM EST Office Visit Allergy/Immunolog y [facility] [place] [address] [place] [address] Kateryna Judge PA-C [address] [place] [address] 10/17/2023 7:45 AM EST Hospital Encounter OR [facility], OPERATING ROOM [facility], [facility] [address] [facility] [place] [phone] Joslyn Gonsalez MD [address] [place], [place] [address] 10/17/2023 7:45 AM EST - 10/17/2023 11:48 AM EST Surgery OR [facility], OPERATING ROOM [facility], [facility] [address] [facility] [place] [address] Joslyn Gonsalez MD [address] [place], [place] [phone] PERCUTANEOUS NEPHROSTOLITHOTOMY UP TO 2CM 12/04/2023 10:45 AM EDT Office Visit Urology, [facility] [address] [facility] [place] [address] Peterson Graves MD 27 [facility] [address] [place] [address] Scheduled Procedures Name Priority Associated Diagnoses Date/Ti me PERCUTANEOUS NEPHROSTOLITHOT KAROLINA UP TO 2CM Renal calculi 10/17/2023 7:45 AM EST Health Maintenance Due Date Last Done Comments [...] this encounter Medical Devices Implanted Type Area Active Directory Specialist Device Identifier Shelf Expiration Date Model / Serial / Lot [facility] 30cm X 30cm - [id number] Implanted:Qty : 1 on 04/21/2015 by Neno Crum MD at OR [facility] N/A: Abdomen [employer] 01/07/2020 [id number] / / [id number] Mesh Capsure Fixation 30 - [id number] Implanted:Qty : 1 on 05/15/2022 by Neno Crum MD at OR [facility] CR BARD : DAVOL 08/06/2022 [id number] / / Cath Pwr Picc Solo Inj 4f - [id number] Implanted:Qty : 1 on 07/04/2023 at [facility] CR BARD : [employer] [id number] 11/06/2024 [id number] / / [id number] Cath Drain Rashad Varghese 12f - [id number] Implanted:Qty : 1 on 09/12/2023 by Chalino Walker MD at OR [facility] COOK : [employer] [id number] 01/23/2026 [id number] / / [id number] documented as of this encounter Advance Directives [...] and were consensually agreed upon. Care Teams Pouch Maker Relationship Specialty Start Date End Date Apolinar Herrera DO [address] [place] [address] PCP - General Family Medicine 03/27/18 documented as of this encounter
--- OUTSIDE RECORDS SUMMARY | 2023-09-21 02:07 | External Medical Summary | Summary of Care ---
Author Name Unknown Organization [facility] Address [address] [place] [address] Phone [phone] Care Team Providers Care Flour Tester Name Role Phone Apolinar Herrera DO Primary Care Provider Reason for Visit * Reason Onset Date Comments Test Results 09/11/2023 Pt calling for U C results completed, 09-05-23. Encounter Details Date Type Department Care Team (Late st Contact Info) Description 09/11/2023 Telephone Urology, [facility] 132 [facility] [place] [address] Peterson Graves MD 100 [address] [facility] [address] 330 [facility] [address] Test Results (Pt calling for results co... Allergies Active Allergy Reactions Criticality Noted Date [...] as of this encounter (statuses as of 09/11/2023) Medications Medication Sig Dispensed Refills Start Date End Date Status SALINE NASAL SPRAY 0.65 % NA SOLN Administer into nostril. 0 Active Polyethylene Glycol 3350 17 GM/SCOOP Oral PowderIndications:a s needed Take by mouth. Indications: as needed 0 Active Zinc Plus Vitamin C 50-90 MG Oral Capsule (Zinc Oxide-Vitamin C) Take by mouth daily . 0 Active Renacidin Irrigation Solution Irrigate with 30 mL as directed daily. 900 mL 11 09/13/2022 09/12/2023 Active Sterile Water for Irrigation Irrigation Solution Irrigate SPT every 8 hrs as needed for malfunction and debris 1000 mL 11 09/13/2022 09/11/2023 Active Nystatin 414569 UNIT/GM External Cream Apply topically to affected area 3 times a day. To affacted area 90 g 5 11/26/2022 Active Magnesium Oxide 400 MG Oral CapsuleIndications: Chronic tension-type headache, not intractable Take 1 Capsule by mouth in the morning. 30 Capsule 5 12/10/2022 Active PARoxetine HCl 10 MG Oral Tablet (Paxil) Take 1 tablet by mouth daily for 2 weeks then take 2 tablets by mouth daily 180 Tablet 3 01/07/2023 Active Sodium Hypochlorite 0.25 % External SolutionIndications :Pressure injury of right ischium, stage 4 (HCC) [...] MG Oral Capsule Take by mouth. 0 Activ e Sodium Chloride Flush 0.9 % Intravenous Solution Flush catheter with one syringe (10 mL) every morning. 300 mL 3 08/08/2023 Active Ibuprofen 200 MG Oral Tablet (Motrin) Take 2 Tablets by mouth every 4 hours as needed. 0 Active documented as of this encounter (statuses as of 09/11/2023) Active Problems Problem Noted Date Diagnosed Date [...] as of this encounter (statuses as of 09/11/2023) Resolved Problems Problem Noted Date Diagnosed Date [...] as of this encounter (statuses as of 09/11/2023) Immunizations Name Administration Dates Next Due COVID-19 mRNA, LNP-s, No Pre serve, 2-Dose Series ([employer]) 07/11/2021,12/23/2020,12/02/2020 Covid-19, Mrna, Lnp-s, Pf, B ivalent, 30 Mcg, IM, 12 yrs and above ([employer]) 07/24/2022 Pneumococcal Conjugate Vacci ne, 20-valent ([id number]) 12/28/2022 Pneumococcal Polysaccharide PPV23 (Pneumovax) 12/12/2021,10/22/2016 Season [...] or approximately 6 weeks. quit in early 1969's Alcohol Use Standard Drinks/Week Comments Yes 0 [...] encounter Miscellaneous Notes * Telephone Encounter - Luna Fischer LPN - 09/11/2023 12:59 PM EST Patient aware and verbalized understanding. * Telephone Encounter - Jinny Cheng OSA - 09/11/2023 9:52 AM EST Pt calling for UC results completed, 09-05-23. Please advise [phone] Greer message - Patient with positive urine culture, has upcoming surgery in [place] for his stone. Patient with chronic suprapubic tube, colonization expected. Will hold on antibiotic therapy for now, can be covered preoperatively, timing per Dr. Gonsalez's preference. Thanks, HM documented in this encounter Plan of Treatment Upcoming Encounters Date Type Department Care Team (Latest Contact Info) Description 09/12/2023 2:30 PM EST Hospital Encounter OR [facility], Operating Room, [facility] - 4th Floor [address] [place] [address] Chalino Walker MD [address] [place] [address] 09/12/2023 2:30 PM EST - 09/12/2023 3:10 PM EST Surgery OR [facility], Operating Room, [facility] - 4th Floor [address] [place] [address] Chalino Walker MD [address] [place] [address] CHANGE OF PERCUTANEOUS TUBE OR DRAINAGE CATHETER WITH XRAY AND CONTRAST MEDIUM 09/19/2023 1:00 PM EST Hospital Encounter Interventional Radiology [facility], [address] 1st Floor [address] [facility] [place] [id number] 09/30/2023 1:30 PM EST Office Visit Urology, [place] [address] [facility] [place] [address] Kyle Stubbs PA-C [address] [place], [place] [phone] 09/30/2023 2:40 PM EST Office Visit [facility] [address] [place] [address] Jules Vicente MD 166 [facility] 200 [place] [address] 10/01/2023 11:00 AM EST Nurse Only Urology, [facility] 132 [facility] [address] [facility], Nurse Urology [facility] 132 [place] [address] 10/03/2023 10:00 AM EST Office Visit Dermatology, [address] [address] Marian Álvarez PA-C [address] [place] [address] [place] [address] 10/04/2023 1:00 PM EST Office Visit Wound Care, [place] [address] [facility] [place] [phone] Parker Valdez MD [address] [facility] [place] [address] 10/11/2023 12:45 PM EST Telemedicine General Surgery, [address] [address] Neno Crum MD [address] [place] [address] 10/15/2023 11:30 AM EST Office Visit Allergy/Immunolog y [facility] [place] [address] [place] [address] Kateryna Judge PA-C [address] [place] [address] 10/17/2023 7:45 AM EST Hospital Encounter OR [facility], OPERATING [facility]OM [facility] [address] [place] [address] Joslyn Gonsalez MD [address] [place] [address] 10/17/2023 7:45 AM EST - 10/17/2023 11:48 AM EST Surgery OR [facility], [facility]ATING [facility] [address] [place] [address] Joslyn Gonsalez MD [address] [place] [address] PERCUTANEOUS NEPHROSTOLITHOTOMY UP TO 2CM 12/04/2023 10:45 AM EDT Office Visit Urology, [facility] 132 [facility] [place] [address] Peterson Graves MD [address] [address] [place] [address] Scheduled Procedures Name Priority Associated Diagnoses Date/Ti me CHANGE OF PERCUTANEOUS TUBE OR DRAINAGE CATHETER WITH XRAY AND CONTRAST MEDIUM Hydronephrosis with renal and ureteral calculus obstruction 09/12/2023 2:30 PM EST PERCUTANEOUS NEPHROSTOLITHOT KAROLINA UP TO 2CM Renal [...] this encounter Medical Devices Implanted Type Area Skip Pitman Device Identifier Shelf Expiration Date Model / Serial / Lot [facility] 30cm X 30cm - [id number] Implanted:Qty : 1 on 04/21/2015 by Neno Crum MD at OR [facility] N/A: Abdomen [employer] 01/07/2020 [id number] / / [id number] Mesh Capsure Fixation 30 - [id number] Implanted:Qty : 1 on 05/15/2022 by Neno Crum MD at OR [facility] CR BARD : DAVOL 08/06/2022 [id number] / / Cath Pwr Picc Solo Inj 4f - [id number] Implanted:Qty : 1 on 07/04/[address] [facility] BARD : [employer]ESS SYSTEM[employer] [id number] 11/06/2024 [id number] / / [id number] documented as of this encounter Advance Directives [...] and were consensually agreed upon. Care Teams Flour Tester Relationship Specialty Start Date End Date Apolinar Herrera DO [address] [place] [address] PCP - General Family Medicine 03/27/18 documented as of this encounter
--- OUTSIDE RECORDS SUMMARY | 2023-09-21 02:07 | External Medical Summary | Summary of Care ---
Author Name Unknown Organization [facility] Address [address] [place] [address] Phone [phone] Care Team Providers Care Dining Room Tables Set Up Attendant Name Role Phone Apolinar Herrera DO Primary Care Provider Reason for Visit * Reason Onset Date Comments Scheduling 09/11/2023 Left PCN exchang e Encounter Details Date Type Department Care Team (Late st Contact Info) Description 09/11/2023 Telephone Radiology, [facility] [address] [place] [address] Kenn Ventura, RN Scheduling (Left PCN exchange) Allergies Active Allergy Reactions Criticality Noted Date [...] 1000 mL 11 09/13/2022 09/11/2023 Active Nystatin 534414 UNIT/GM External Cream Apply topically to affected [...] (Pfizer) 07/24/2022 Pneumococcal Conjugate Vacci ne, 20-valent (Qzymffp82) 12/28/2022 Pneumococcal Polysaccharide PPV23 (Pneumovax) 12/12/2021,10/22/2016 Season [...] encounter Miscellaneous Notes * Telephone Encounter - Kenn Ventura RN - 09/11/2023 8:48 AM EST Spoke with patient over the phone about upcoming procedure on 09/12, Left percutaneous nephrostomy tube exchange. Pt states he had excessive pain and discomfort during previous tube exchange, requesting sedation for this procedure. Pt verbalized understanding of instructions and had no further questions at this time. Patient identified by: name/birthdate Person taught: Patient METHOD: Lecture-telephone interview Patient Preferred Learning Methods: Lecture-Telephone interview PATIENT EDUCATION SCREENING Education Screening: Patient Motivation Level: Asks Questions Language Barrier: no Physical Barrier: N/A LEARNING NEED: Health history interview completed, pre op information given, and questions answeredvia telephone interview. OUTCOME: State / Describe / Explain PATIENT INSTRUCTIONS GIVEN: - Medication Instructions Reviewed - NPO Instructions Reviewed, pt to stop eating 8 hours prior to procedure and stop drinking 2 hoursprior to procedure. -Anode Adjuster required Location and check-in instructions Verbalizes understanding of education: Yes Procedure date at time of Imaging Encounter: 09/12, time TBD What procedure is patient having? Percutaneous nephrostomy tube exchange Laterality confirmed as Left Does the patient have a yellow bar? Did not The Patient was given the opportunity to ask questions concerning the procedure. Signature: Kenn Ventura RN 09/11/2023 documented in this encounter Plan of Treatment Upcoming Encounters Date Type Department Care Team (Latest Contact Info) Description 09/12/2023 2:30 PM EST Hospital Encounter OR [facility], Operating Room, [facility] - 4th Floor [address] [place] [address] Chalino Walker MD [address] [place] [address] 09/12/2023 2:30 PM EST - 09/12/2023 3:10 PM EST Surgery OR [facility], Operating Room, [facility] - 4th Floor [address] [place] [address] Chalino Walker MD 400 [facility] [address] CHANGE OF PERCUTANEOUS TUBE OR DRAINAGE CATHETER WITH XRAY AND CONTRAST MEDIUM 09/19/2023 1:00 PM EST Hospital Encounter Interventional Radiology [facility], [facility] 1st Floor [address] [place] [address] 09/30/2023 1:30 PM EST Office Visit Urology, [place] [address] [place], [place] [phone] Kyle Stubbs PA-C [address] [place], [place] [address] 09/30/2023 2:40 PM EST Office Visit [facility] 166 [facility] 200 [place] [address] Jules Vicente MD 166 [facility] 200 [place] [address] 10/01/2023 11:00 AM EST Nurse Only Urology, [facility] 132 [place] [address] [facility], Nurse Urology [facility] 132 [place] [address] 10/03/2023 10:00 AM EST Office Visit Derm[address] [address] Marian Álvarez PA-C [address] [place] [address] [place] [id number] 10/04/2023 1:00 PM EST Office Visit Wound Care, [place] [address] [place] [address] Parker Valdez MD [address] [place] [address] 10/11/2023 12:45 PM EST Telemedicine General Surgery, [address] [place] [address] Neno Crum MD [address] [place] [address] 10/15/2023 11:30 AM EST Office Visit [facility]Immunolog y [facility] [address] [place] [address] Kateryna Judge PA-C [address] [place] [address] 10/17/2023 7:45 AM EST Hospital Encounter [place] [facility], OPERATING ROOM [facility] [address] [place] [address] Joslyn Gonsalez MD [address] [place] [address] 10/17/2023 7:45 AM EST - 10/17/2023 11:48 AM EST Surgery OR [facility], OPERATING ROOM [facility], [facility] [address] [place] [address] Joslyn Gonsalez MD [address] [place] [address] PERCUTANEOUS NEPHROSTOLITHOTOMY UP TO 2CM 12/04/2023 10:45 AM EDT Office Visit Urology, [facility] 132 [facility] [place] [address] Peterson Graves MD 27 [facility] [address] [place] [address] Scheduled Procedures Name Priority Associated Diagnoses Date/Ti [...] this encounter Medical Devices Implanted Type Area Coal Weigher Device Identifier Shelf Expiration Date Model / Serial / Lot Vit[employer]h Square 30cm X 30cm - [id number] Implanted:Qty : 1 on 04/21/2015 by Neno Crum MD at [place] [facility] N/A: Abdomen [employer] 01/07/2020 [id number] / / [id number] Mesh Capsure Fixation 30 - [id number] Implanted:Qty : 1 on 05/15/2022 by Neno Crum MD at OR [facility] CR BARD : DAVOL 08/06/2022 [id number] / / Cath Pwr Picc Solo Inj 4f - [id number] Implanted:Qty : 1 on 07/04/2023 at [facility] CR BARD : [employer]ESS SYSTEMS [id number] 11/06/2024 [id number] / / [id number] documented as of this encounter Advance Directives [...] and were consensually agreed upon. Care Teams Dining Room Tables Set Up Attendant Relationship Specialty Start Date End Date Apolinar Herrera DO [address] [place] [address] PCP - General Family Medicine 03/27/18 documented as of this encounter
--- OUTSIDE RECORDS SUMMARY | 2023-09-21 02:07 | External Medical Summary | Summary of Care ---
Author Name Unknown Organization [facility] Address [address] [place] [address] Phone [phone] Care Team Providers Care Rural Route Carrier Name Role Phone Apolinar Herrera DO Primary Care Provider Encounter Details Date Type Department Care Team (Late st Contact Info) Description 09/13/2023 Telephone Radiology, [facility] [address] [place] [address] Marine Mchugh I RN Allergies Active Allergy Reactions Criticality Noted Date [...] by mouth daily . 0 Active Nystatin 255918 UNIT/GM External Cream Apply topically to affected [...] (Pfizer) 07/24/2022 Pneumococcal Conjugate Vacci ne, 20-valent ([id number]) 12/28/2022 Pneumococcal Polysaccharide PPV23 (Pneumovax) 12/12/2021,10/22/2016 Season [...] encounter Miscellaneous Notes * Telephone Encounter - Marine Mchugh RN - 09/13/2023 2:02 PM EST Received call from patient stating he was to call in today and let IR know how he was feeling afterhis nephrostomy tube exchange yesterday. He stated he is currently battling a UTI and per patient "I was supposed to be given an antibiotic prior to having my tube exchanged." This nurse knew nothingabout this and apologized to patient. Upon review of patient's chart it appears that Dr.Howard Graves has already called in a rx. documented in this encounter Plan of Treatment Upcoming Encounters Date Type Department Care Team (Latest Contact Info) Description 09/30/2023 1:30 PM EST Office Visit Urology, [address] [address] Kyle Stubbs PA-C Formerly named [facility] [place] [address] 09/30/2023 2:40 PM EST Office Visit [address] [address] Jules Vicente MD [address] [address] 10/01/2023 11:00 AM EST Nurse Only Urology, [facility] [address] [facility] [address] [place], Nurse Urology [facility] [address] [facility] [place] [address] 10/03/2023 10:00 AM EST Office Visit Dermatology[address] [address] Marian Álvarez PA-C [address] [place] [address] [place] [address] 10/04/2023 1:00 PM EST Office Visit Wound Care, [address] [place] [address] Parker Valdez MD [address] [place] [address] 10/11/2023 12:45 PM EST Telemedicine General Surgery, [address] [address] Neno Crum MD [address] [place], [place] [address] 10/15/2023 11:30 AM EST Office Visit Allergy/Immunolog y [facility] [address] [place] [address] Kateryna Judge PA-C [address] [place] [address] 10/17/2023 7:45 AM EST Hospital Encounter OR [facility], OPERATING ROOM [facility] [address] [facility] [place] [address] Joslyn Gonsalez MD [address] [place] [address] 10/17/2023 7:45 AM EST - 10/17/2023 11:48 AM EST Surgery OR [facility], OPERATING ROOM [facility] [address] [place] [address] Joslyn Gonsalez MD [address] [place] [address] PERCUTANEOUS NEPHROSTOLITHOTOMY UP TO 2CM 12/04/2023 10:45 AM EDT Office Visit Urology, [facility] [address] [facility] [place] [address] Peterson Graves MD [address] [facility] [address] [place] [address] Scheduled Procedures Name Priority Associated Diagnoses Date/Ti [...] this encounter Medical Devices Implanted Type Area Operations Research Engineer Device Identifier Shelf Expiration Date Model / Serial / Lot [facility] Square 30cm X 30cm - [id number] Implanted:Qty : 1 on 04/21/2015 by Neno Crum MD at OR [facility] N/A: Abdomen [employer] 01/07/2020 [id number] / / [id number] Mesh Capsure Fixation 30 - [id number] Implanted:Qty : 1 on 05/15/2022 by Neno Crum MD at OR [facility] CR BARD : DAVOL 08/06/2022 [id number] / / Cath Pwr Picc Solo Inj 4f - [id number] Implanted:Qty : 1 on 07/04/2023 at [facility] CR BARD : [employer] [id number] 11/06/2024 [id number] / / [id number] Cath Drain Rashad Varghese 12f - [id number] Implanted:Qty : 1 on 09/12/2023 by Chalino Walker MD at OR [facility] COOK : [employer] [id number] 01/23/2026 [id number] / / [id number] documented as of this encounter Advance Directives [...] and were consensually agreed upon. Care Teams Rural Route Carrier Relationship Specialty Start Date End Date Apolinar Herrera DO [address] [place] [address] PCP - General Family Medicine 03/27/18 documented as of this encounter
--- OUTSIDE RECORDS SUMMARY | 2023-09-21 02:07 | External Medical Summary | Summary of Care ---
Author Name Unknown Organization [facility] Address [address] [place] [address] Phone [phone] Care Team Providers Care Shop Superintendent Name Role Phone Apolinar Herrera DO Primary Care Provider Reason for Visit * Reason Onset Date Comments Surgery 09/18/2023 To discuss Encounter Details Date Type Department Care Team (Late st Contact Info) Description 09/18/2023 Telephone Urology, [place] [address] [place] [address] Joslyn Gonsalez MD [address] [place] [address] Surgery (To discuss) Allergies Active Allergy Reactions Criticality Noted Date [...] by mouth daily . 0 Active Nystatin 755342 UNIT/GM External Cream Apply topically to affected [...] mRNA, LNP-s, No Pre serve, 2-Dose Series ([employer]) 07/11/2021,12/23/2020,12/02/2020 Covid-19, Mrna, Lnp-s, Pf, B ivalent, 30 Mcg, IM, 12 yrs and above (Pfizer) 07/24/2022 Pneumococcal Conjugate Vacci ne, 20-valent ([id number]) 12/28/2022 Pneumococcal Polysaccharide PPV23 (Pneumovax) 12/12/2021,10/22/2016 Season [...] Encounter - Gregoria Gordon OSA - 09/18/2023 8:[address] Gonsalez's request I placed a call to the pt's brother who is the hazmat truck driver and support system forthe pt. I left a detailed message explaining that Dr. Gonsalez would like to speak with both pt and hisbrother in a clinic setting to discuss the pt's care and future treatment. I requested that Santos return my call and let us know if he was willing to bring his brother to the clinic and meet with Dr. Gonsalez. I supplied my clinic number of [phone] ext [phone] for him to return my call. documented in this encounter Plan of Treatment Upcoming Encounters Date Type Department Care Team (Late st Contact Info) Description 09/20/2023 11:00 AM EST Home Visit Care Coordination and Integration [address] [place] [address] Juhi Dotson, Community [facility] Clutch Mechanic [address] [place] [address] 10/01/2023 11:00 AM EST Nurse Only Urology, [facility] [address] [place] [address] [facility], Nurse Urology [facility] [address] [place] [address] 10/03/2023 10:00 AM EST Office Visit Dermatology, [address] [address] Marian Álvarez PA-C [address] [place] [address] [place] [address] 10/04/2023 1:00 PM EST Office Visit Wound Care, [place] [address] [place] [address] Parker Valdez MD [address] [place] [address] 10/11/2023 12:45 PM EST Telemedicine General Surgery, [address] [facility] [address] Neno Crum MD [address] [place], [place] [address] 10/15/2023 11:30 AM EST Office Visit Allergy/Immunology [facility] [address] [place] [address] Kateryna Judge PA-C [address] [place] [address] 12/04/2023 10:45 AM EDT Office Visit Urology, [facility] [address] [facility] [place] [address] Peterson Graves MD [address] [place] [address] 04/10/2024 2:30 PM EDT Office Visit Urology Danica Holman [address] [place] [address] Peterson Graves MD [address] [place] [address] Health Maintenance Due Date Last Done Comments [...] this encounter Medical Devices Implanted Type Area Machine Sneller Device Identifier Shelf Expiration Date Model / Serial / Lot [facility] Square 30cm X 30cm - [id number] Implanted:Qty : 1 on 04/21/2015 by Neno Crum MD at [place] [facility] N/A: Abdomen [employer] 01/07/2020 [id number] / / [id number] Mesh Capsure Fixation 30 - [id number] Implanted:Qty : 1 on 05/15/2022 by Neno Crum MD at [place] [facility] CR BARD : DAVOL 08/06/2022 [id number] / / Cath Pwr Picc Solo Inj 4f - [id number] Implanted:Qty : 1 on 07/04/2023 at [facility] CR BARD : [employer] [id number] 11/06/2024 [id number] / / [id number] Cath Drain Solorzanoca Varghese 12f - [id number] Implanted:Qty : 1 on 09/12/2023 by Chalino Wakler MD at OR [facility] COOK : [employer] [id number] 01/23/2026 [id number] / / [id number] documented as of this encounter Advance Directives [...] and were consensually agreed upon. Care Teams Shop Superintendent Relationship Specialty Start Date End Date Apolinar Herrera DO [address] [place] [address] PCP - General Family Medicine 03/27/18 documented as of this encounter
--- OUTSIDE RECORDS SUMMARY | 2023-09-21 02:07 | External Medical Summary | Summary of Care ---
Author Name Unknown Organization [facility] Address [address] [place] [address] Phone [phone] Care Team Providers Care Bending Machine Operator Name Role Phone Apolinar Herrera DO Primary Care Provider Reason for Visit * Auth/Cert Specialty Diagnoses / Procedures Referred By Michael connor Referred To Contact Diagnoses Hydronephrosis with renal and ureteral calculus obstruction Hydronephrosis with renal and ureteral calculus obstruction [N13.2] Procedures IR DRAINAGE CATHETER CHANGE CHANGE OF PERCUTANEOUS TUBE OR DRAINAGE CATHETER WITH XRAY AND CONTRAST MEDIUM Referral ID Status Reason Start Date Expiration Date Visits Re quested Visits Authorized [id number] Encounter Details Date Type Department Care Team (Latest Contact Info) Description 09/12/2023 1:52 PM EST - 09/12/2023 4:23 PM EST Hospital Encounter OR GL, Operating Room, [facility] - 4th Floor [address] [address] Chalino Walker MD [address] [address] Discharge Disposition: Home - Self Care Allergies Active Allergy Reactions Criticality Noted Date [...] by mouth daily . 0 Active Nystatin 821260 UNIT/GM External Cream Apply topically to affected [...] every 4 hours as needed. 0 Active Renacidin Irrigation Solution Irrigate with 30 mL as directed daily. 900 mL 11 09/13/2022 09/12/2023 documented as of this encounter (statuses as [...] mRNA, LNP-s, No Pre serve, 2-Dose Series (Android App Review Source) 07/11/2021,12/23/2020,12/02/2020 Covid-19, Mrna, Lnp-s, Pf, B ivalent, 30 Mcg, IM, 12 yrs and above (Pfizer) 07/24/2022 Pneumococcal Conjugate Vacci ne, 20-valent ([id number]) 12/28/2022 Pneumococcal Polysaccharide PPV23 (Pneumovax) 12/12/2021,10/22/2016 Season [...] on file documented as of this encounter Last Filed Vital Signs Vital Sign Reading Time Taken Comments Blood Pressure 129/88 09/12/2023 3:51 PM EST Pulse 91 09/12/2023 3:51 PM EST Temperature 37.1 C (98.8 F) 09/12/2023 3:51 PM ES T Respiratory Rate 17 09/12/2023 3:51 PM EST Oxygen Saturation 99% 09/12/2023 3:51 PM EST Inhaled Oxygen Concentration - - Weight 73.5 kg (162 lb) 09/12/2023 2:03 PM EST Height 162.6 cm (5' 4") 09/12/2023 2:03 PM EST Body Mass Index 27.81 09/12/2023 2:03 PM EST documented in this encounter Functional Status Functional Status Response [...] Yes 06/25/2023 documented as of this encounter Discharge Instructions * Discharge Instr - AVS* Chalino Walker MD - 09/12/2023 3:46 PM EST Discharge Date: 09/12/2023 Provider: Denise BUNCH The information below provides you with the instructions and the list of medications you need to betaking following discharge from the hospital. If you have any questions, please ask before leaving.Please carry this letter with you when you see your doctor in the clinic. If you have questions, you can reach us at the numbers above. SPECIAL INSTRUCTIONS Nephrostomy Catheter Change If Connected to Drainage Bag Wear comfortable clothing that does not pull or kink the catheter Check your securement device (stat lock or stay fix)/sutures often to make sure they are not comingloose. If so, the catheter may be pulled out. If the securement device becomes loose, follow the following steps to change it: Wash hands using soap and water Open center of securement device (either pull tab or squeeze to release catheter) Remove securement device carefully as not to pull catheter Inspect skin to make sure there are no open areas from adhesive Apply new securement device Secure catheter to center of securement device Close device Wash hands again with soap and water Gently clean area at insertion site with mild soap and warm water. Pat dry DO NOT let the bag hang freely. Keep bag secured to leg above the knee and make sure there is slackon the tubing of the drainage bag. Empty the drainage bag often so it does not become too heavy. Always empty the drainage bag before bed. To empty bag: Wash hands with soap and water Open twist end on bottom of bag After bag is completely empty, twist close Wash hands again with soap and water It is all right to shower; however, try to keep the catheter insertion site dry. Cover with plasticwrap and tape. Make sure to inspect dressing securing the catheter after every shower. DO NOT take a bath, sit in a hot tub, go swimming, or do any other activity that requires you to befully submerged in water. If Not Connected to Drainage Bag Wear loose comfortable clothing that does not pull or kink the catheter. Check your securement device/sutures often to make sure they are not coming loose. If so, the catheter may be pulled out. Gently clean area at insertion site with mild soap and water. Pat dry. It is all right to shower; however, try to keep the catheter site dry. Cover with plastic wrap and tape. Make sure to inspect dressing, securing the catheter after every shower. DO NOT take a bath, sit in a hot tub, go swimming, or do any other activity that requires you to befully submerged in water. Reconnect a drainage bag if you start having pain in your back, nausea, or an increased temperature, and call Interventional Radiology. Flushing Your Catheter* Your catheter may need to be flushed daily to ensure it drains properly. Because only certain pharmacies carry pre-filled saline flushes, we can call the prescription into [facility] if no one close to you carries them. *Flush catheter once daily with 10 mL normal saline (1 pre-filled saline syringe), if instructed. To flush your catheter: Wash your hands. Gather alcohol swab, 10 mL of 0.9% NSS flush and a clean towel/tissue. Twist the drainage bag connector counter-clockwise and place it on a clean towel or tissue. Clean the connector with alcohol swab for 10 seconds. Remove the white cap from 0.9% NSS flush, gently pull plunger back and then forward to remove air. Connect 0.9% NSS flush to the catheter by twisting it clockwise onto the connection hub. Gently flush entire 10 mL of 0.9% NSS into catheter. Remove flush from the hub by twisting it counter-clockwise. Clean the connector with alcohol swab for 10 seconds. Re-connect the drainage bag by inserting the connector piece into the catheter hub and twisting it in a clockwise direction until tight. Wash your hands. *Remember to deduct 10 mL from daily drainage total to account for flushing. Follow Up Your catheter will need to be exchanged periodically approximately every 3 months. Our schedulers will contact you to set up this appointment. Please call Interventional Radiology if your catheter is removed by Urology, as you will not be required to come for the follow up appointment for catheter study. Stay hydrated and take care of your general health. DO NOT push catheter When to Call Interventional Radiology Call Interventional Radiology right away if you have any of the following: If catheter gets pulled or migrates out, DO NOT push catheter back in. Contact Interventional Radiology immediately. Increased pain, swelling, bleeding, redness, or foul-smelling discharge around the catheter Urine that changes to a pink or red color A noticeable increase or decrease in the amount of urine that drains Fever above 100.4 degrees Fahrenheit or shaking chills Vomiting or nausea that does not go away Severe pain over the flank or catheter site If at any time you feel you have a medical emergency, call 911 for emergency assistance. Symptoms may include: Chest Pain Sudden, severe shortness of breath Rapid heart rate Sudden onset of weakness Do not smoke or use tobacco products in any way! If you feel suicidal or homicidal, please call the crisis hotline at [phone] ([phone]). Driving: You may resume driving 1 day . Diet: You may resume your current diet as tolerated. Return to work or school: You may return to school or work 1 days after the procedure, unless otherwise instructed by the physician. documented in this encounter H&P Notes * Chalino Walker MD - 09/12/2023 2:56 PM EST HISTORY & PHYSICAL - Interventional Radiology Service [facility]-[address] [place] [address] Name: Vernon Sommer Location: OR [facility] Date: 09/12/2023 Time: 2:57 PM CHIEF COMPLAINT: Nephrostomy not working well. About 100-200 ml daily output HISTORY OF PRESENT ILLNESS: Left pcn placed late July for obstructive stone disease. Initially, pt reports daily output of about 1 liter. For the past few weeks, only about 100- 200 ml. Past Medical History: Diagnosis Date Anxiety and depression Chronic headaches Constipation Decubital ulcer 07/05/2004 Decubitus ulcer of buttock GERD (gastroesophageal reflux disease) H/O Clostridium difficile infection Hematuria, microscopic IBS (irritable bowel syndrome) Neurogenic bladder Paraplegia (HCC) Parastomal hernia 04/22/2015 Recurrent UTI h/o VRE UTI Respiratory distress syndrome Sleep apnea, obstructive Spina bifida (HCC) Staghorn calculus URIN TRACT INFECTION NOS 01/03/1999 Past Surgical History: Procedure Laterality Date CIRCUMCISION,OTHER THAN CLAMP/SLIT<29 DAYS 1979 Circumcision,Othr, [place] COLONOSCOPY, DIAGNOSTIC (RECTUM) 09/13/2022 benign adenomatous polyps, repeat 6 mo / [facility] COLOSTOMY 05/2005 to prevent pressure sores CYSTOSCOPY/INSERTION OF STENT 02/03/2013 CYSTOURETHROSCOPY WITH INSERTION URETERAL STENT performed by Juhi Pinto MD at [place] [facility] CYSTOURETERO W/LITHOTRIPSY 02/03/2013 CYSTOURETHROSCOPY URETEROSCOPY WITH LITHOTRIPSY performed by Juhi Pinto MD at OR [facility] CYSTOURETERO W/LITHOTRIPSY Left 03/04/2020 CYSTOURETHROSCOPY URETEROSCOPY WITH LITHOTRIPSY performed by Joslyn Gonsalez MD at [facility] EGD, FLEXIBLE, DIAGNOSTIC 12/12/2017 Schatzki ring, hiatal hernia, repeat 7-10 days/[facility] EGD, FLEXIBLE, DIAGNOSTIC 01/02/2018 GE junction ring, repeat 7-10 days/[facility] EGD, FLEXIBLE, DIAGNOSTIC 12/20/2017 severe Schatzki ring, repeat 7-10 days/[facility] EGD, FLEXIBLE, DIAGNOSTIC 08/05/2019 Ring, dilated. Retained food / [facility] EGD, FLEXIBLE, DIAGNOSTIC 08/05/2019 retained food, ? gastroparesis / [facility] EGD, FLEXIBLE, DIAGNOSTIC 06/21/2021 esophageal stenosis, hiatal hernia, repeat 2 wks / [facility] EGD, FLEXIBLE, DIAGNOSTIC 08/18/2021 esophageal stenosis / [facility] EGD, FLEXIBLE, DIAGNOSTIC 07/05/2021 Schatzki ring, repeat 1 mo / [facility] EGD, FLEXIBLE, DIAGNOSTIC 09/13/2022 Schatzki ring EXPLORATION OF ABDOMEN N/A 04/28/2015 EXPLORATORY LAPAROTOMY performed by Neno Crum MD at [facility] INCISION OF EARDRUM 08/2010 R serous otitis INFORMATION 2002 R sacral skin flap INFORMATION 06/2005 muscle skin flap in buttocks area INFORMATION 1979 amputations oftoes right foot IR ASPIRATION ABSCESS/COLLECTION 05/21/2022 IR GENITORINARY NEPHRO/CYSTO/URETERAL 06/25/2023 IR GENITORINARY NEPHRO/CYSTO/URETERAL 08/08/2023 IR VENOUS ACCESS NON-MEDIPORT 07/04/2023 LAPAROSCOPY DIAGNOSTIC N/A 04/28/2015 LAPAROSCOPY DIAGNOSTIC performed by Neno Crum MD at [facility] MOBILIZATION OF SPLENIC FLEXURE colostomy REMOVAL OF KIDNEY STONE, OVER 2CM 02/03/2013 PERCUTANEOUS NEPHROSTOLITHOTOMY OVER 2CM performed by Juhi Pinto MD at [facility] REMOVAL OF URETER, BLADDER CUFF repair of damage REMOVE ISCHIAL PRESSURE ULCER 02/08/2014 EXCISION ISCHIAL ULCER WITH PRIMARY SUTURE performed by Too Gandara MD at [facility] REPAIR INITIAL INCISIONAL OR VENTRAL HERNIA; REDUCIBLE N/A 03/04/2020 ROBOTIC REPAIR INITIAL INCISIONAL /VENTRAL HERNIA REDUCIBLE performed by Neno Crum MD at [facility] REPAIR INITIAL INCISIONAL OR VENTRAL HERNIA; REDUCIBLE N/A 05/15/2022 ROBOTIC REPAIR INITIAL INCISIONAL /VENTRAL HERNIA REDUCIBLE performed by Neno Crum MD at [facility] REPAIR RECURRENT INCISIONAL HERNIA N/A 04/21/2015 REPAIR RECURRENT INCISIONAL HERNIA REDUCIBLE performed by Neno Crum MD at [facility] REPAIR RECURRENT INCISIONAL HERNIA N/A 05/31/2016 REPAIR RECURRENT INCISIONAL HERNIA REDUCIBLE performed by Neno Crum MD at [facility] SKIN FLAP TRANSPLANT 1998 to repair R hip decubitusm at [facility] SUBQ DEBRIDEMENT, FIRST 20 CM2 12/21/2013 DEBRIDEMENT SKIN AND SUBCUTANEOUS TISSUE performed by Too Gandara MD at [facility] SUPRAPUBIC TUBE CHANGE SIMPLE/NURSE N/A 11/08/2021 CHANGE CYSTOSTOMY TUBE SIMPLE performed by Peterson Graves MD at OR [facility] Social History Socioeconomic History Marital status: Single Spouse name: Not on file Number of children: Not on file Years of education: Not on file Highest education level: Not on file Occupational History Not on file Tobacco Use Smoking status: Former Types: Cigarettes Quit date: 03/15/1974 Years since quittin.5 Smokeless tobacco: Never Tobacco comments: 1 cigarette daily for approximately 6 weeks. quit in early s Vaping Use Vaping Use: Never used Substance and Sexual Activity Alcohol use: Yes Comment: socially Drug use: No Sexual activity: Not on file Other Topics Concern Not on file Social History Narrative Not on file Social Determinants of Health Financial Resource Strain: Not on file Food Insecurity: No Food Insecurity (09/05/2023) Hunger Vital Sign Worried About Running Out of Food in the Last Year: Never true Ran Out of Food in the Last Year: Never true Transportation Needs: Not on file Physical Activity: Not on file Stress: Not on file Social Connections: Not on file Intimate Partner Violence: Not on file Housing Stability: Not on file Family History Problem Relation Age of Onset Heart Disorder Mother Arthritis Father Paget's Cancer Brother Prostate, age 70 Review of patient's allergies indicates: Allergen Reactions Vancomycin Hives Adhesive Tape Silk tape ( not true allergy), preeti brand ostomy wafer - skin breaks out Aspirin GI upset Clindamycin Rash Penicillins Rash 2012 while on ampicillin for skin decubitus wound Bilat lower extremity pruritic rash when taken for UTI- 04/2019 Pineapple Cleaning tongue Povidone Iodine Rash, reports hives Current Facility-Administered Medications Medication Dose Route Frequency Provider Last Rate Last Admin isolyte-S pH 7.4 infusion Intravenous Continuous Chalino Walker MD 10 mL/hr at 09/12/23 1424 New Bag at 09/12/23 1424 REVIEW OF SYSTEMS: Constitutional: (-) fever chills sweats or weight loss Cardiovascular: (-) negative: no chest pain, dyspnea, syncope, or palpitations Pulmonary: (-) negative: no cough, wheezing, or shortness of breath Abdominal/GI: (-) negative: no pain, heartburn, dysphagia, bleeding, change in bowel habits, nauseaor vomiting OBJECTIVE: BP 142/61 | Pulse 92 | Temp 36.1 C (97 F) (Temporal Artery) | Resp 18 | Ht 1.626 m (5' 4") | Wt73.5 kg (162 lb) | SpO2 100% | BMI 27.81 kg/m | BSA 1.82 m PHYSICAL EXAM: Constitutional: no acute distress CV: normal rate and rhythm, no murmur, gallops or rub Chest: normal respiratory effort, lungs clear to auscultation and percussion Abdomen: normal: soft, bowel sounds normal, no masses, tenderness or organomegaly Left 10 fr pcn in good position externally. No erythema or discharge. LABS: CBC Results: PT INR Results: BUN Results: Lab Results Component Value Date/Time BUN - [facility] 13 09/10/2023 06:40 PM BUN - [facility] 9 07/08/2023 05:05 AM BUN - [facility] 10 07/07/2023 07:23 AM BUN - [facility] 20 06/30/2020 12:08 PM BUN - [facility] 9 03/10/2020 08:14 AM BUN - [facility] 5 (L) 03/09/2020 07:44 AM Creatinine Results: Lab Results Component Value Date/Time CREATININE - [facility] 0.5 (L) 09/10/2023 06:40 PM CREATININE - [facility] 0.4 (L) 07/08/2023 05:05 AM CREATININE - [facility] 0.4 (L) 07/07/2023 07:23 AM CREATININE - [facility] 0.7 06/30/2020 12:08 PM CREATININE - [facility] 0.5 (L) 03/10/2020 08:14 AM CREATININE - [facility] 0.5 (L) 03/09/2020 07:44 AM CREATININE-OUTSIDE LAB 0.47 (A) 07/19/2023 12:00 AM CREATININE-OUTSIDE LAB 0.56 (A) 02/15/2022 12:00 AM CREATININE-OUTSIDE LAB 0.55 (A) 01/05/2022 12:00 AM Potassium Results: Lab Results Component Value Date/Time POTASSIUM - [facility] 3.8 09/10/2023 06:40 PM POTASSIUM - [facility] 4.6 07/08/2023 05:05 AM POTASSIUM - [facility] 3.4 (L) 07/07/2023 07:23 AM POTASSIUM - [facility] 4.2 06/30/2020 12:08 PM POTASSIUM - [facility] Specimen too Hemolyzed. Reorder if needed. 03/10/2020 08:14 AM POTASSIUM - [facility] 3.6 03/09/2020 07:44 AM POTASSIUM, WHOLE BLOOD - [facility] 3.5 03/22/1999 09:47 AM POTASSIUM-OUTSIDE LAB 4.2 07/19/2023 12:00 AM POTASSIUM-OUTSIDE LAB 3.5 07/12/2023 12:00 AM POTASSIUM-OUTSIDE LAB 3.3 (A) 02/15/2022 12:00 AM INFORMED CONSENT: Yes PRE-SEDATION ASSESSMENT IMPRESSION/PLAN: Left pcn exchange 10 fr Chalino Walker MD documented in this encounter Nursing Notes * Aida Benjamin RN - 09/12/2023 4:20 PM EST [place] [address] [facility] Discharge Note Name: Vernon Sommer Date: 09/12/2023 Time: 4:20 PM Discharge Disposition: Home Responsible adult as escort home: brother Transport Mode: Wheelchair Accompanied by: Juan R Branham RN To: Car Belongings with patient: Yes Patient meets criteria to be transferred or discharged. documented in this encounter OR Notes * Operative Report Brief - Chalino Walker MD - 09/12/2023 3:46 PM EST PROCEDURE NOTE - Interventional Radiology [address] [address] Name: Vernon Sommer Location: [facility] Date: 09/12/2023 Time: 3:46 PM PROCEDURE: unclog nephrostomy, nephrostogram, nephrostomy upsize. MIXER OPERATOR VACUUM PAN SALT: Denise ANESTHESIA: local COMPLICATIONS: none SPECIMEN: none ESTIMATED BLOOD LOSS: negligible FINDINGS: clogged 10 fr left nephrostomy without hydronephrosis. Upsize nephrostomy catheter to 12 [facility] documented in this encounter Miscellaneous Notes * Pre-Sedation Assessment - Chalino Walker MD - 09/12/2023 3:02 PM EST PRE-SEDATION ASSESSMENT PRE-SEDATION ASSESSMENT: Pcn Exchange Left Difficulty with sedation / anesthesia: No Sleep apnea: No History of snoring: No History of difficult intubation: No Decreased ROM neck flexion/extension: No Tracheal deviation: No Decreased ability to open mouth / TMJ: No Loose teeth / dentures / partial: No Congenital deformities / abnormalities: No Dysphagia: No Mallampati Classification: II - soft palate, uvula, fauces visible ASA Risk Stratification (Select One): ASA 2 - Mild systemic disease, no functional limitations The patient was reevaluated immediately prior to the sedation: 09/12/2023 3:03 PM documented in this encounter Plan of Treatment Upcoming Encounters Date Type Department Care Team (Latest Contact Info) Description 09/13/2023 1:00 PM EST Home Visit Care Coordination and Integration [address] [place] [address] Juhi Dotson, [facility]er [address] [place] [address] 09/30/2023 1:30 PM EST Office Visit Urology, [place] [address] [place] [address] Kyle Stubbs PA-C [address] [place] [address] 09/30/2023 2:40 PM EST Office Visit [address] [address] Jules Vicente MD 166 [facility] [address] [place] [address] 10/01/2023 11:00 AM EST Nurse Only Urology, [facility] [address] [facility] [address] [facility], Nurse Urology [facility] [address] [place] [address] 10/03/2023 10:00 AM EST Office Visit Dermatology, [address] [address] Marian Álvarez PA-C [address] [place] [address] [place] [address] 10/04/2023 1:00 PM EST Office Visit Wound Care, [place] [address] [place] [address] Parker Valdez MD [address] [place] [address] 10/11/2023 12:45 PM EST Telemedicine General Surgery, [address] [phone] Neno Crum MD [address], [place] [id number] 10/15/2023 11:30 AM EST Office [facility] [address] [place] [address] Kateryna Judge PAAyaanC [address] [facility] [address] 10/17/2023 7:45 AM EST Hospital Encounter [place] [facility], OPERATING ROOM [facility], LACY FREED [address] [place] [address] Joslyn Gonsalez MD [address] [place] [address] 10/17/2023 7:45 AM EST - 10/17/2023 11:48 AM EST Surgery [facility], [facility] [address] [facility] [place] [address] Joslyn Gonsalez MD [address] [place] [address] PERCUTANEOUS NEPHROSTOLITHOTOMY UP TO 2CM 12/04/2023 10:45 AM EDT Office Visit Urology, [facility] [address] [facility] [place] [address] Peterson Graves MD 27 [facility] [address] [place] [address] Scheduled Procedures Name Priority Associated Diagnoses Date/Ti [...] this encounter Medical Devices Implanted Type Area Drupal Php Developer Device Identifier Shelf Expiration Date Model / Serial / Lot Vitame Square 30cm X 30cm - [id number] Implanted:Qty : 1 on 04/21/2015 by Neno Crum MD at [place] [facility] N/A: Abdomen [employer] 01/07/2020 [id number] / / [id number] Mesh Capsure Fixation 30 - [id number] Implanted:Qty : 1 on 05/15/2022 by Neno Crum MD at [place] [facility] CR BARD : DAVOL 08/06/2022 [id number] / / Cath Pwr Picc Solo Inj 4f - [id number] Implanted:Qty : 1 on 07/04/2023 at [facility] CR BARD : [employer] [id number] 11/06/2024 [id number] / / [id number] Cath Drain Rashad Varghese 12f - [id number] Implanted:Qty : 1 on 09/12/2023 by Chalino Walker MD at OR [facility] COOK : [employer] [id number] 01/23/2026 [id number] / / [id number] documented as of this encounter Procedures Procedure Name Priority Date/Time Associated Diagnosis Comments IR INTERVENTIONAL RADIOLOGY PROCEDURE IN OR Routine 09/12/2023 3:43 PM EST documented in this encounter Results * IR INTERVENTIONAL RADIOLOGY PROCEDURE IN OR (09/12/2023 3:43 PM EST) 09/12/2023 4:17 PM EST Impressions [facility] RADIOLOGY - 09/12/2023 4:15 PM EST IMPRESSION: No hydronephrosis with occluded 10 Egyptian drainage catheter. Nephrostomy was upsized to 12 Egyptian and left to gravity drainage. PLAN: Patient should return to for routine maintenance catheter check and exchange in 3 months. Narrative [facility] - 09/12/2023 4:15 PM EST PROCEDURE: Left nephrostomy catheter check and exchange. INDICATION: left percutaneous nephrostomy catheter (PCN) due to stone disease. Patient reports several week history of poor functioning with a decrease from 1 L per day to 102 100 mL nephrostomy output per day., ATTENDING (OPERATING PHYSICIAN): Denise CONSENT: After a detailed discussion of the procedure, risks, benefits and alternative treatment options, informed consent was obtained. TIME OUT: A time out procedure was performed. The patient's identification was verified. Informed consent with agreement of procedure, site and position was obtained. All necessary equipment was available prior to procedure. CONTRAST: IV Optiray 320. COMPLICATIONS: None. ANESTHESIA: Local lidocaine. SEDATION TIME: N/A MEDICATIONS: See MAR PROCEDURE DESCRIPTION: The patient was placed in the prone position on the fluoroscopy table. The flank and left nephrostomy catheter was prepped and draped in usual sterile fashion. Left PCN check and exchange: Preliminary fluoroscopic images demonstrate a nephrostomy catheter overlying the left flank. A small amount of contrast was injected through the catheter which demonstrated opacification of the collecting system. Difficulty will was encountered in injecting the nephrostomy. The contrast which was successfully injected was demonstrated to be within the collecting system. The locking mechanism of the catheter was then removed, and a wire was advanced. Difficulty was encountered in recannulating the catheter. Eventually, after multiple wires, access to the collecting system was achieved and the catheter removed. Using a Kumpe the catheter, the wire was repositioned properly coiled within the central collecting system. The decision was made to upsize the drainage catheter to a Egyptian since the 10 Egyptian catheter clogged after only several weeks. The tract was dilated with a 12 Egyptian dilator and a new 12 Egyptian drainage catheter was placed within the central collecting system. The drainage catheter was injected showing good positioning. The drainage catheter was then sewn in place and left to gravity drainage. The patient tolerated the procedure well FINDINGS: No hydronephrosis in left kidney. Occluded 10 Egyptian drainage catheter. . Procedure Note Chalino Walker MD - 09/12/2023 PROCEDURE: Left nephrostomy catheter check and exchange. INDICATION: left percutaneous nephrostomy catheter (PCN) due to stonedisease. Patient reports several week history of poor functioning with adecrease from 1 L per day to 102 100 mL nephrostomy output per day., ATTENDING (OPERATING PHYSICIAN): Denise CONSENT: After a detailed discussion of the procedure, risks, benefits andalternative treatment options, informed consent was obtained. TIME OUT: A time out procedure was performed. The patient's identificationwas verified. Informed consent with agreement of procedure, site andposition was obtained. All necessary equipment was available prior toprocedure. CONTRAST: IV Optiray 320. COMPLICATIONS: None. ANESTHESIA: Local lidocaine. SEDATION TIME: N/A MEDICATIONS: See MAR PROCEDURE DESCRIPTION: The patient was placed in the prone position on thefluoroscopy table. The flank and left nephrostomy catheter was prepped anddraped in usual sterile fashion. Left PCN check and exchange: Preliminary fluoroscopic images demonstrate anephrostomy catheter overlying the left flank. A small amount of contrastwas injected through the catheter which demonstrated opacification of thecollecting system. Difficulty will was encountered in injecting thenephrostomy. The contrast which was successfully injected wasdemonstrated to be within the collecting system. The locking mechanism of the catheter was then removed, and a wire wasadvanced. Difficulty was encountered in recannulating the catheter.Eventually, after multiple wires, access to the collecting system wasachieved and the catheter removed. Using a Kumpe the catheter, the wirewas repositioned properly coiled within the central collecting system. The decision was made to upsize the drainage catheter to a Egyptian sincethe 10 Egyptian catheter clogged after only several weeks. The tract wasdilated with a 12 Egyptian dilator and a new 12 Egyptian drainage catheter wasplaced within the central collecting system. The drainage catheter wasinjected showing good positioning. The drainage catheter was then sewn in place and left to gravitydrainage. The patient tolerated the procedure well FINDINGS: No hydronephrosis in left kidney. Occluded 10 Egyptian drainage catheter. . IMPRESSION IMPRESSION: No hydronephrosis with occluded 10 Egyptian drainage catheter. Nephrostomywas upsized to 12 Egyptian and left to gravity drainage. PLAN: Patient should return to IR for routine maintenance catheter checkand exchange in 3 months. Chalino Walker MD RAD SPECIAL PROCEDUR [facility] documented in this encounter Administered Medications Inactive Administered Medications - up to 3 most recent administrations Medication Order MAR Action Action Date Dose Rate Site diphenhydrAMINE (Benadryl) cap 50 mg 50 mg, Oral, Q6H, First dose on Laura 09/12/23 at 1800, Until Discontinued Given 09/12/2023 4:10 PM EST 50 mg isolyte-S pH 7.4 infusion Intravenous, at 10 mL/hr, Plasma-LYTE 148, isolyte-S, and isolyte-S pH 7.4 are considered equivalent - including for MAR barcode scanning., CONTINUOUS, Starting on Laura 09/12/23 at 1500, Until Laura 09/12/23 at 2022, Pre-Op New Bag 09/12/2023 2:24 PM EST 10 mL/hr documented in this encounter Active and Recently Administered Medications Times are shown in EST. Scheduled Medication Order 09/10/2023 09/11/2023 09/12/2023 diphenhydrAMINE (Benadryl) cap 50 mg 50 mg, Oral, Q6H, First dose on Laura 09/12/23 at 1800, Until Discontinued 1610 (Given - Provid er: Aida Benjamin RN) Continuous Medication Order 09/10/2023 09/11/2023 09/12/2023 isolyte-S pH 7.4 infusion Intravenous, at 10 mL/hr, Plasma-LYTE 148, isolyte-S, and isolyte-S pH 7.4 are considered equivalent - including for MAR barcode scanning., CONTINUOUS, Starting on Laura 09/12/23 at 1500, Until Laura 09/12/23 at 2022, Pre-Op 1424 (New Bag - Prov ider: Michelle Branham RN) PRN Medication Order 09/10/2023 09/11/2023 09/12/2023 buffered lidocaine 1 % inj (CANCELED) ONCE PRN INTRA PROCEDURE, Starting on Laura 09/12/23 at 1548, Until Laura 09/12/23 at 1549, Intra-Op 1548 (Given - Provid er: Chalino Walker MD) Ioversol (Optiray 320) inj (CANCELED) ONCE PRN INTRA PROCEDURE, Starting on Laura 09/12/23 at 1548, Until Laura 09/12/23 at 1549, Intra-Op 1548 (Given - Provid er: Chalino Walker MD) documented in this encounter Advance Directives Latest Code Status [...] and were consensually agreed upon. Care Teams Bending Machine Operator Relationship Specialty Start Date End Date Apolinar Herrera DO [address] [place] [address] PCP - General Family Medicine 03/27/18 documented as of this encounter
--- OUTSIDE RECORDS SUMMARY | 2023-09-21 02:07 | External Medical Summary | Summary of Care ---
Author Name Unknown Organization [facility] Address [address] [place] [address] Phone [phone] Care Team Providers Care Heel Attacher Wood Name Role Phone Apolinar Herrera DO Primary Care Provider Encounter Details Date Type Department Care Team (Late st Contact Info) Description 09/16/2023 Telephone Family Practice [facility] [address] [facility] [place] [id number] Apolinar Herrera DO [address] [place] [address] Allergies Active Allergy Reactions Criticality Noted Date [...] by mouth daily . 0 Active Nystatin 885711 UNIT/GM External Cream Apply topically to affected [...] (Pfizer) 07/24/2022 Pneumococcal Conjugate Vacci ne, 20-valent ([id number]) 12/28/2022 Pneumococcal Polysaccharide PPV23 (Pneumovax) 12/12/2021,10/22/2016 Season [...] encounter Miscellaneous Notes * Telephone Encounter - Joanne Bergman RN - 09/17/2023 2:03 PM EST Request submitted through [employer] * Telephone Encounter - June Smith LPN - 09/16/2023 2:06 PM EST Joanne: Spoke with patient. States that [facility] wound care informed him that wound tape was denied by his insurance company. Patient is asking if you could assist with this. He did call the wound care clinic today, and has not heard back from them yet. Thank you Zahida documented in this encounter Plan of Treatment Upcoming Encounters Date Type Department Care Team (Late st Contact Info) Description 09/20/2023 11:00 AM EST Home Visit Care Coordination and Integration [address] [place] [address] Juhi Dotson, [facility] Cuff Cutter [address] [place] [address] 10/01/2023 11:00 AM EST Nurse Only Urology, [facility] [address] [facility] [place] [address] Toure, Nurse Urology [facility] [address] [facility] [place] [address] 10/03/2023 10:00 AM EST Office Visit Dermatology, [address] [address] Marian Álvarez, PA-Diana [address] [place] [address] [place] [address] 10/04/2023 1:00 PM EST Office Visit Wound Care, [place] [address] [place] [address] Parker Valdez MD [address] [place] [address] 10/11/2023 12:45 PM EST Telemedicine General Surgery, [address] [place] [id number] Neno Crum MD [address] [place] [address] 10/15/2023 11:30 AM EST Office Visit Allergy/Immunology [facility] [address] [place] [address] Kateryna Judge PA-C [address] [place] [address] 12/04/2023 10:45 AM EDT Office Visit Urology, [facility] [address] [place] [address] Peterson Graves MD [address] [place] [address] 04/10/2024 2:30 PM EDT Office Visit Urology Danica Holman [address] [place] [address] Peterson Graves MD [address] [place] [address] Health Maintenance Due Date Last Done Comments [...] this encounter Medical Devices Implanted Type Area Comparator Operator Device Identifier Shelf Expiration Date Model / Serial / Lot Vitamesh Square 30cm X 30cm - [id number] Implanted:Qty : 1 on 04/21/2015 by Neno Crum MD at OR [facility] [place] N/A: Abdomen [employer] 01/07/2020 [id number] / / [id number] Mesh Capsure Fixation 30 - [id number] Implanted:Qty : 1 on 05/15/2022 by Neno Crum MD at OR [facility] [place] CR BARD : DAVOL 08/06/2022 [id number] / / Cath Pwr Picc Solo Inj 4f - [id number] Implanted:Qty : 1 on 07/04/2023 at [facility] CR BARD : [employer] [id number] 11/06/2024 [id number] / / [id number] Cath Drain Solorzano Varghese 12f - [id number] Implanted:Qty : 1 on 09/12/2023 by Chalino Walker MD at OR [facility] COOK : [employer] [id number] 01/23/2026 [id number] / / [id number] documented as of this encounter Visit Diagnoses Diagnosis Decubitus ulcer of ischial area, stage 4, unspecified laterality (HCC)- Primary documented in this encounter Advance Directives Latest [...] and were consensually agreed upon. Care Teams Heel Attacher Wood Relationship Specialty Start Date End Date Apolinar Herrera DO [address] [place] [address] PCP - General Family Medicine 03/27/18 documented as of this encounter
--- OUTSIDE RECORDS SUMMARY | 2023-09-21 02:07 | External Medical Summary | Summary of Care ---
Author Name Unknown Organization [facility] Address [address] [place] [address] Phone [phone] Care Team Providers Care Quality Technician Fiberglass Name Role Phone Apolinar Herrera DO Primary Care Provider Reason for Visit * Reason Comments Other Blocked Nephrostomy tube * Auth/Cert Specialty Diagnoses / Procedures Referred By Michael connor Referred To Contact Referral ID Status Reason Start Date Expiration Date Visits Re quested Visits Authorized [id number] Encounter Details Date Type Department Care Team (Late st Contact Info) Description 09/10/2023 8:44 PM EST - 09/10/2023 10:31 PM EST [facility] Emergency Department ([facility]) [address] [place] [address] Hunter Olivas DO [address] [place] [address] Complication of nephrostomy (HCC) (Primary Dx) Discharge Disposition: Home - Self Care Allergies Active Allergy Reactions Criticality Noted Date Comments Adhesive Tape 01/03/1999 Silk tape ( not true allergy), preeti brand ostomy wafer - skin breaks out Aspirin 01/03/1999 GI upset Clindamycin Rash 02/09/2014 Penicillins 07/17/2013 Rash 2013 while on ampicillin for skin decubitus wound [...] 1000 mL 11 09/13/2022 09/11/2023 Active Nystatin [id number] UNIT/GM External Cream Apply topically to affected [...] ulcer of ischial area, stage 4 03/10/20 Overview: Pressure ulcer of R ischium Acquired [...] mRNA, LNP-s, No Pre serve, 2-Dose Series (mobilePeople) 07/11/2021,12/23/2020,12/02/2020 Covid-19, Mrna, Lnp-s, Pf, B ivalent, 30 Mcg, IM, 12 yrs and above (mobilePeople) 07/24/2022 Pneumococcal Conjugate Vacci ne, 20-valent ([id number]) 12/28/2022 Pneumococcal Polysaccharide PPV23 (Pneumovax) 12/12/2021,10/22/2016 Season [...] or approximately 6 weeks. quit in early 1969' Alcohol Use Standard Drinks/Week Comments Yes 0 [...] Sign Reading Time Taken Comments Blood Pressure 131/62 09/10/2023 6:31 PM EST Pulse 97 09/10/2023 6:31 PM EST Temperature 37 C (98.6 F) 09/10/2023 6:31 PM EST Respiratory Rate 18 09/10/2023 6:31 PM EST Oxygen Saturation 98% 09/10/2023 6:31 PM EST Inhaled Oxygen Concentration - - Weight - - Height - - Body Mass Index - - documented in this encounter Functional Status Functional [...] of this encounter Discharge Instructions * Discharge Instructions* Daniella Shipman MD - 09/10/2023 9:52 PM EST Vernon you were seen and evaluated in our emergency department at [facility] in [place], [place]. Vernon you were seen for nephrostomy tube not draining. We did obtain a CT scan which demonstrates that your nephrostomy tube is in good position. Please follow-up with your doctors regarding seeing IR for nephrostomy tube exchange. documented in this encounter ED Notes * Hunter Olivas DO - 09/10/2023 9:53 PM EST HISTORY OF PRESENT ILLNESS Vernon Sommer is a 68 year old male with PMH paraplegia, spina bifida, colostomy who presents to the ED for evaluation of Other (Blocked Nephrostomy tube). The patient was seen at 09/10/23 1830. Vernon states that he has a left nephrostomy tube due to renal stones. His father states they have not been able to flush the tube today. They normally are supposed to flush it every few days. He states he continues to have normal output. He denies any pain, fever, chills, chest pain, shortness of breath. He did try to call 1 of his doctors who encouraged him to come in for possible IR intervention. The patient's allergies, past history, and medications were reviewed. PHYSICAL EXAM Initial Vitals (see all): BP 131/62 | Pulse 97 | Resp 18 | Temp 98.6 | O2 98 %, Room Air, None | Weight 73.5 kg | Height 162.6 cm | BMI 27.81 kg/m2 Physical Exam Vitals and nursing note reviewed. Constitutional: General: He is not in acute distress. Appearance: He is well-developed. HENT: Head: Normocephalic and atraumatic. Eyes: Conjunctiva/sclera: Conjunctivae normal. Cardiovascular: Rate and Rhythm: Normal rate and regular rhythm. Heart sounds: No murmur heard. Pulmonary: Effort: Pulmonary effort is normal. No respiratory distress. Breath sounds: Normal breath sounds. Abdominal: Palpations: Abdomen is soft. Tenderness: There is no abdominal tenderness. Comments: Site surrounding the nephrostomy tube is well-appearing. He has output in his nephrostomytube bag. Musculoskeletal: General: No swelling. Cervical back: Neck supple. Skin: General: Skin is warm and dry. Capillary Refill: Capillary refill takes less than 2 seconds. Neurological: Mental Status: He is alert. Psychiatric: Mood and Affect: Mood normal. PROCEDURES AND TREATMENTS ED Orders | ED Results MEDICAL DECISION MAKING Nursing notes and vital signs were reviewed. ED Course as of 09/10/232353Sep 10, 20231828 Presenting for concern of block nephrostomy tube [MS] 2122 CT Abd/Pelvis without IV and without oral contrast IMPRESSION No hydronephrosis. Unchanged position of the left percutaneous nephrostomy tube. [GR] 2354 Lactate, Whole Blood: 1.4 [GR] 2354 WBC: 9.33 [GR] 2354 Comprehensive Metabolic Panel(!) Unremarkable [GR] ED Course User Index [GR] Daniella Shipman MD [MS] Pavan Palafox MD Differential Diagnoses Based on my history, physical exam, and evaluation, the differential includes, but is not limited, to the following diagnoses: Block nephrostomy tube, nephrostomy tube dysfunction, nephrostomy tube disorder. Vernon Sommer is a 68 year old male with H paraplegia, spina bifida, colostomy who presents to the ED for evaluation of block nephrostomy tube. Vernon presents with his father who states they were not able to flush his nephrostomy tube today. He continues to have output. He denies any other constitutional symptoms including fever, chills. Hearrives hemodynamically stable and nontoxic appearing. He did speak to someone regarding his nephrostomy tube not flushing. He was told to come to emergency department for possible IR intervention. We did obtain a CT abdomen and pelvis which demonstrated that his nephrostomy tube is in good position. Given that he continued to have output there is less concerned for an acute obstruction. We did try to consult with our IR physicians. Given that his nephrostomy tube continues to have good output t júniory do not recommend an urgent nephrostomy tube replacement. They will schedule him for outpatient replacement. He was discharged home without further complications. Amount and/or Complexity of Data Reviewed Labs: Decision-making details documented in ED Course. Radiology: Decision-making details documented in ED Course. Clinical Impressions Complication of nephrostomy (HCC) Disposition Discharged. The patient's condition at disposition was: stable. Hunter Olivas was the attending physician who supervised the care of this patient. Daniella Shipman MD ATTENDING ATTESTATION I have seen and examined this patient on the 09/10/2023 visit. I have discussed the patient's management with the provider listed above and agree with the note, findings, and plan of care. I personallymade/approved the management plan and take responsibility for patient management. documented in this encounter Plan of Treatment Upcoming Encounters Date Type Department Care Team (Latest Contact Info) Description 09/12/2023 2:30 PM EST Hospital Encounter OR [facility], Operating Room, [facility] - 4th Floor [address] [address] Chalino Walker MD [address] [address] 09/12/2023 2:30 PM EST - 09/12/2023 3:10 PM EST Surgery OR [facility], Operating Room, [facility] - 4th Floor [address] [place] [address] [facility] [address] CHANGE OF PERCUTANEOUS TUBE OR DRAINAGE CATHETER WITH XRAY AND CONTRAST MEDIUM 09/19/2023 1:00 PM EST Hospital Encounter Interventional Radiology [facility], [facility] 1st Floor [address] [facility] [place] [address] 09/30/2023 1:30 PM EST Office Visit Urology, [place] [address] [facility] [place] [id number] Kyle Stubbs PA-C [address] [place] [place] [address] 09/30/2023 2:40 PM EST Office Visit [address] [place] [address] Jules Vicente MD [address] [facility] [address] [place] [address] 10/01/2023 11:00 AM EST Nurse Only Urology, [facility] [address] [facility] [place] [address] [facility], Nurse Urology [facility] [address] [facility] [place] [address] 10/03/2023 10:00 AM EST Office Visit Dermatology, [address] [address] Marian Álvarez PA-C [address] [place] [address] [place] [address] 10/04/2023 1:00 PM EST Office Visit Wound Care, [place] [address] [facility] [place] [address] Parker Valdez MD [address] [place] [address] 10/11/2023 12:45 PM EST Telemedicine General Surgery, [address] [place] [address] Neno Crum MD [address] [place] [address] 10/15/2023 11:30 AM EST Office Visit Allergy/Immunolog y Emily Gonsalez [place] [address] [place] [address] Kateryna Judge PA-C [address] [place] [address] 10/17/2023 7:45 AM EST Hospital Encounter OR [facility], OPERATING ROOM [facility] [address] [facility] [place] [address] Joslyn Gonsalez MD [address] [place] [address] 10/17/2023 7:45 AM EST - 10/17/2023 11:48 AM EST Surgery OR C, OPERATING ROOM [facility], [facility] [address] [place] [address] Joslyn Gonsalez MD [address] [place] [address] PERCUTANEOUS NEPHROSTOLITHOTOMY UP TO 2CM 12/04/2023 10:45 AM EDT Office Visit Urology, [facility] [address] [facility] [place] [address] Peterson Graves MD [address] [facility] [address] [place] [address] Scheduled Orders Name Type Priority Associated Diagnoses Orde r Schedule URINALYSIS, REFLEX TO CULTURE (NOT FOR NEUTROPENIC PATIENTS) Lab STAT Perform No w for 1 Occurrences starting 09/10/2023 until 09/10/2023 URINALYSIS, REFLEX TO CULTURE (CUP ONLY) Lab STAT Once for 1 Oc currences starting 09/10/2023 until 09/10/2023 URINALYSIS, REFLEX TO CULTURE Lab STAT Once for 1 Occur rences starting 09/10/2023 until 09/10/2023 Scheduled Procedures Name Priority Associated Diagnoses Date/Ti [...] this encounter Medical Devices Implanted Type Area Client Reporting Associate Device Identifier Shelf Expiration Date Model / Serial / Lot Hallie Square 30cm X 30cm - [id number] Implanted:Qty : 1 on 04/21/2015 by Neno Crum MD at OR [facility] N/A: Abdomen [employer] 01/07/2020 [id number] / / [id number] Mesh Capsure Fixation 30 - [id number] Implanted:Qty : 1 on 05/15/2022 by Neno Crum MD at OR [facility] CR BARD : DAVOL 08/06/2022 [id number] / / Cath Pwr Picc Solo Inj 4f - [id number] Implanted:Qty : 1 on 07/04/2023 at [facility] CR BARD : [employer] [id number] 11/06/2024 [id number] / / [id number] documented as of this encounter Procedures Procedure Name Priority Date/Time Associated Diagnosis Comments LACTATE,WHOLE BLOOD STAT 09/10/2023 9 :[address] ABD/PELVIS WO IV/ORAL CONTRAST STAT 09/10/2023 6:57 PM EST LACTATE, WHOLE BLOOD WITH REFLEX IF ABNORMAL STAT 09/10/2023 6:40 PM EST DIFFERENTIAL, AUTOMATED STAT 09/10/2023 6:40 PM EST COMPREHENSIVE METABOLIC PANEL STAT 09/10/2023 6:40 PM EST CBC STAT 09/10/2023 6:40 PM EST CBC STAT 09/10/2023 6:40 PM EST documented in this encounter Results * LACTATE,WHOLE BLOOD (09/10/2023 9:42 PM EST) Lactate, Whole Blood 1.4 0.4 - 2.0 mmol/L 09/10/2023 9:54 PM EST LABORATORY [facility] Blood Venous blood specimen / Unknown Venipuncture / Unknown 09/10/2023 9:42 PM EST 09/10/2023 9:50 PM EST Pavan Palafox MD LAB BLOOD ORDERAB LES LABORATORY [facility] [address] [place] [address] * CT ABD/PELVIS WO IV/ORAL CONTRAST (09/10/2023 6:57 PM EST) Anatomical Region Laterality Modality Body, Abdomen, Pelvis Computed T omography 09/10/2023 9:14 PM EST Impressions 09/10/2023 9:12 PM EST IMPRESSION No hydronephrosis. Unchanged position of the left percutaneous nephrostomy tube. Narrative 09/10/2023 9:12 PM EST EXAM EXAM: CT ABD/PELVIS WO IV/ORAL CONTRAST DATE TIME: 09/10/2023 - 09/10/2023 6:57 pm TECHNIQUE Oral Contrast: Oral contrast was not administered. IV Contrast: No IV Contrast used. Note that lack of IV contrast limits evaluation of viscera and vasculature. HISTORY Concern for block nephrostomy tube COMPARISON CT abdomen and pelvis 06/28/2023. FINDINGS HEART(visualized): Small pericardial effusion. LUNG BASES: Small left pleural effusion with associated atelectasis. LIVER: Small cysts. BILE DUCTS: Nondilated. GALLBLADDER: Unremarkable PANCREAS: Unremarkable SPLEEN: Unremarkable ADRENALS: Unchanged 2 cm right adrenal myelolipoma. KIDNEYS/URETERS: No significant change of a left-sided percutaneous nephrostomy tube. Numerous calculi in the left ureter. No hydronephrosis or hydroureter. Right renal cysts. BLADDER: Collapsed around a suprapubic catheter, limiting evaluation. BOWEL: Left hemicolectomy and left lower quadrant colostomy. Normal in caliber. LYMPH NODES: Unremarkable VESSELS: Unremarkable REPRODUCTIVE ORGANS: Unremarkable PERITONEUM/RETROPERITONEUM: No free fluid, free air, or fluid collections. ABDOMINAL WALL/SOFT TISSUES: Similar deep sacral decubitus ulcer. Ventral hernia repair with mesh. Left lower quadrant colostomy. Diffuse atrophy of the pelvic and proximal thigh musculature. BONES: Chronic right hip deformity with superior subluxation of the distal fracture fragment. Chronic deformity of the right ischium. Redemonstrated spinal dysraphism. Procedure Note Jean Patterson, DO - 09/10/2023 EXAM EXAM: CT ABD/PELVIS WO IV/ORAL CONTRAST DATE TIME: 09/10/2023 - 09/10/2023 6:57 pm TECHNIQUE Oral Contrast: Oral contrast was not administered. IV Contrast: No IV Contrast used. Note that lack of IV contrast limitsevaluation of viscera and vasculature. HISTORY Concern for block nephrostomy tube COMPARISON CT abdomen and pelvis 06/28/2023. FINDINGS HEART(visualized): Small pericardial effusion. LUNG BASES: Small left pleural effusion with associated atelectasis. LIVER: Small cysts. BILE DUCTS: Nondilated. GALLBLADDER: Unremarkable PANCREAS: Unremarkable SPLEEN: Unremarkable ADRENALS: Unchanged 2 cm right adrenal myelolipoma. KIDNEYS/URETERS: No significant change of a left-sided percutaneousnephrostomy tube. Numerous calculi in the left ureter. No hydronephrosisor hydroureter. Right renal cysts. BLADDER: Collapsed around a suprapubic catheter, limiting evaluation. BOWEL: Left hemicolectomy and left lower quadrant colostomy. Normal incaliber. LYMPH NODES: Unremarkable VESSELS: Unremarkable REPRODUCTIVE ORGANS: Unremarkable PERITONEUM/RETROPERITONEUM: No free fluid, free air, or fluidcollections. ABDOMINAL WALL/SOFT TISSUES: Similar deep sacral decubitus ulcer. Ventralhernia repair with mesh. Left lower quadrant colostomy. Diffuse atrophyof the pelvic and proximal thigh musculature. BONES: Chronic right hip deformity with superior subluxation of the distalfracture fragment. Chronic deformity of the right ischium.Redemonstrated spinal dysraphism. IMPRESSION IMPRESSION No hydronephrosis. Unchanged position of the left percutaneousnephrostomy tube. Pavan Palafox MD RAD CT * (ABNORMAL) DIFFERENTIAL, AUTOMATED (09/10/2023 6:40 PM EST) WBC 9.33 4.00 - 10.80 K/uL 09/10/2023 7:45 PM EST [facility] Neutrophils % 71.8 40.0 - 75.0 % 09/10/2023 7:45 PM EST [facility] Lymphocytes % 16.1(L) 18.0 - 42.0 % 09/10/2023 7:45 PM EST [facility] Monocytes % 8.1 1.0 - 11.0 % 09/10/2023 7:45 PM EST [facility] Eosinophils % 3.3 0.0 - 6.0 % 09/10/2023 7:45 PM EST [facility] Basophils % 0.3 0.0 - 2.0 % 09/10/2023 7:45 PM EST [facility] Immature Granulocytes % 0.4 0.0 - 2.0 % 09/10/2023 7:45 PM EST [facility] Absolute Neutrophils 6.69 1.80 - 7.70 K/uL 09/10/2023 7:45 PM EST [facility] Absolute Lymphocytes 1.50 1.00 - 4.80 K/ul 09/10/2023 7:45 PM EST [facility] Absolute Monocytes 0.76 0.00 - 1.10 K/uL 09/10/2023 7:45 PM EST [facility] Absolute Eosinophils 0.31 0.00 - 0.70 K/uL 09/10/2023 7:45 PM EST [facility] Absolute Basophils 0.03 0.00 - 0.20 K/uL 09/10/2023 7:45 PM EST [facility] Absolute Immature Granulocytes 0.04 0.00 - 0.20 K/uL 09/10/2023 7:45 PM EST [facility] Blood Venous blood specimen / Unknown Venipuncture / Unknown 09/10/2023 6:40 PM EST 09/10/2023 6:47 PM EST Pavan Palafox MD LAB BLOOD ORDERAB LES [facility] [address] [place] [address] * (ABNORMAL) CBC (09/10/2023 6:40 PM EST) WBC 9.33 4.00 - 10.80 K/uL 09/10/2023 7:45 PM EST [facility] RBC 4.79 4.50 - 5.25 M/uL 09/10/2023 7:45 PM EST [facility] HGB 11.6(L) 14.0 - 16.8 g/dL 09/10/2023 7:45 PM EST [facility] HCT 39.4(L) 40.0 - 48.4 % 09/10/2023 7:45 PM EST [facility] MCV 82.3 82.0 - 99.5 fL 09/10/2023 7:45 PM EST [facility] MCH 24.2 27.0 - 34.0 pg 09/10/2023 7:45 PM EST [facility] MCHC 29.4 32.0 - 36.0 g/dL 09/10/2023 7:45 PM EST [facility] RDW 15.7 11.5 - 15.5 % 09/10/2023 7:45 PM EST [facility] PLT 379 140 - 400 K/uL 09/10/2023 7:45 PM EST [facility] MPV 8.6 6.6 - 11.1 fL 09/10/2023 7:45 PM EST [facility] nRBCs 0 <=0 /100 WBCs 09/10/2023 7:45 PM EST [facility] Blood Venous blood specimen / Unknown Venipuncture / Unknown 09/10/2023 6:40 PM EST 09/10/2023 6:47 PM EST Pavan Palafox MD LAB BLOOD ORDERAB LES Performing Organization Address City/[facility]/ZIP Co de Phone Number LABORATORY [facility] [address] [place] [address] * (ABNORMAL) LACTATE, WHOLE BLOOD WITH REFLEX IF ABNORMAL (09/10/2023 6:40 PM EST) Pathologist [facility] Lactate, Whole Blood 2.5(H) 0.4 - 2.0 mmol/L 09/10/2023 6:50 PM EST [facility] Blood Venous blood specimen / Unknown Venipuncture / Unknown 09/10/2023 6:40 PM EST 09/10/2023 6:47 PM EST Pavan Palafox MD LAB BLOOD ORDERAB LES Performing Organization Address City/[facility]/ZIP Co de Phone Number LABORATORY [facility] [address] [place] [address] * (ABNORMAL) COMPREHENSIVE METABOLIC PANEL (09/10/2023 6:40 PM EST) [facility] BUN 13 6 - 20 mg/dL 09/10/2023 7:10 PM EST [facility] Creatinine 0.5(L) 0.6 - 1.2 mg/dL 09/10/2023 7:10 PM EST [facility] Estimated Glomerular Filtration Rate >90 >=60 mL/min 09/10/2023 7:10 PM EST [facility] Comment:eGFR is calculated b ased on the CKD-EPI 2020 equation Sodium 139 135 - 146 mmol/L 09/10/2023 7:10 PM EST [facility] Potassium 3.8 3.5 - 5.1 mmol/L 09/10/2023 7:10 PM EST [facility] Chloride 104 98 - 107 mmol/L 09/10/2023 7:10 PM EST [facility] CO2 28 22 - 32 mmol/L 09/10/2023 7:10 PM EST [facility] Anion Gap 7 7 - 15 mmol/L 09/10/2023 7:10 PM EST [facility] Glucose 112 70 - 120 mg/dL 09/10/2023 7:10 PM EST [facility] Albumin 3.1(L) 3.8 - 5.0 g/dL 09/10/2023 7:10 PM EST [facility] AST 10 10 - 50 U/L 09/10/2023 7:10 PM EST [facility] Alkaline Phosphatase 85 35 - 130 U/L 09/10/2023 7:10 PM EST [facility] Bilirubin, Total 0.3 <=1.2 mg/dL 09/10/2023 7:10 PM EST [facility] Calcium 9.0 8.4 - 10.2 mg/dL 09/10/2023 7:10 PM EST [facility] Protein 6.9 6.0 - 8.3 g/dL 09/10/2023 7:10 PM EST [facility] ALT <5(L) 10 - 50 U/L 09/10/2023 7:10 PM EST [facility] Blood Venous blood specimen / Unknown Venipuncture / Unknown 09/10/2023 6:40 PM EST 09/10/2023 6:48 PM EST Pavan Palafox MD LAB BLOOD ORDERAB LES LABORATORY [facility] [address] [facility] [place] [address] documented in this encounter Visit Diagnoses Diagnosis Complication of nephrostomy (HCC)- Primary Urinary complications Hydronephrosis with renal and ureteral calculus obstruction Hydronephrosis Renal calculi Calculus of kidney documented in this encounter Advance Directives Latest [...] and were consensually agreed upon. Care Teams Quality Technician Fiberglass Relationship Specialty Start Date End Date Apolinar Herrera DO [address] [facility] [place] [address] PCP - General Family Medicine 03/27/18 documented as of this encounter"
--- OUTSIDE RECORDS SUMMARY | 2023-09-21 02:08 | External Medical Summary ---
Author Name Unknown Address Unknown Organization [id number]:LABORATORY [facility] - [address] [facility] [address] [place] [address] Laboratory Report Ordering Provider Test Date Status SINGER ELIZABETH 09/10/2023 18:40:00 Final Observation Date Value Abnormality Reference (Units ) Status BUN 09/10/2023 18:40:00 13 6-20 (mg/dL) Final Creatinine 09/10/2023 18:40:00 0.5 Below low normal 0.6-1.2 (mg/dL) Final Glomerular filtration rate/1.73 sq M.predicted [Volume Rate/Area] in Serum, Plasma or Blood by Creatinine-based formula (CKD-EPI) 09/10/2023 18:40:00 >90 >=60 (mL/min) Final eGFR is calculated based on the CKD-EPI 2020 equation SODIUM 09/10/2023 18:40:00 139 135-146 (m mol/L) Final Potassium 09/10/2023 18:40:00 3.8 3.5-5.1 (m mol/L) Final Cl 09/10/2023 18:40:00 104 98-107 (mm ol/L) Final CO2 09/10/2023 18:40:00 28 22-32 (mmo l/L) Final Anion gap 09/10/2023 18:40:00 7 7-15 (mmol /L) Final Glucose 09/10/2023 18:40:00 112 70-120 (mg /dL) Final Albumin 09/10/2023 18:40:00 3.1 Below low normal 3.8 -5.0 (g/dL) Final AST (Aspartate aminotransferase) 09/10/2023 18:40:00 10 10-50 (U/L) Fin al Alk Phos 09/10/2023 18:40:00 85 35-130 (U/ L) Final Bilirubin, Total 09/10/2023 18:40:00 0.3 <=1 .2 (mg/dL) Final Calcium 09/10/2023 18:40:00 9.0 8.4-10.2 ( mg/dL) Final Protein 09/10/2023 18:40:00 6.9 6.0-8.3 (g /dL) Final ALT (Alanine aminotransferase) 09/10/2023 18:40:00 <5 Below low normal 10-50 (U/L) Final Performing Location LABORATORY [facility] - [address] [facility] [address]
--- OUTSIDE RECORDS SUMMARY | 2023-09-21 02:08 | External Medical Summary | Summary of Care ---
Author Name Unknown Organization [facility] Address [address] [place] [address] Phone [phone] Care Team Providers Care Bottom Buffer Name Role Phone Apolinar Herrera DO Primary Care Provider Encounter Details Date Type Department Care Team (Late st Contact Info) Description 09/11/2023 Population Health External Data Unspecified Department Allergies Active Allergy Reactions Criticality Noted Date [...] 1000 mL 11 09/13/2022 09/11/2023 Active Nystatin 573377 UNIT/GM External Cream Apply topically to affected [...] (Pfizer) 07/24/2022 Pneumococcal Conjugate Vacci ne, 20-valent ([id number]) 12/28/2022 Pneumococcal Polysaccharide PPV23 (Pneumovax) 12/12/2021,10/22/2016 Season [...] or approximately 6 weeks. quit in early s Alcohol Use Standard Drinks/Week Comments Yes 0 [...] Yes 06/25/2023 documented as of this encounter Plan of Treatment Upcoming Encounters Date Type Department Care Team (Latest Contact Info) Description 09/19/2023 1:00 PM EST Hospital Encounter Interventional Radiology [facility], [facility] 1st [facility] [address] [place] [facility] [place] [address] 09/30/2023 1:30 PM EST Office Visit Urology, [place] [address] [place] [facility] [address] Kyle Stubbs PA-C [address] [facility], [place] [phone] 09/30/2023 2:40 PM EST Office Visit [address] [place] [address] Jules Vicente MD 166 [facility] 200 [place] [address] 10/01/2023 11:00 AM EST Nurse Only Urology, [facility] 132 [place] [address] [facility], Nurse Urology [facility] 132 [facility] [address] 10/03/2023 10:00 AM EST Office Visit Dermatology, [address] [address] Marian Álvarez PA-C [address] [place] [address] [place] [address] 10/04/2023 1:00 PM EST Office Visit Wound Care, [place] [address] [facility], [place] [phone] Parker Valdez MD [address] [facility], [place] [id number] 10/11/2023 12:45 PM EST Telemedicine General Surgery, [address] [place] [phone] Neno Crum MD [address] [facility], [place] [phone] 10/15/2023 11:30 AM EST Office Visit [facility] [address] [place] [address] Kateryna Judge PA-C [address] [place] [address] 10/17/2023 7:45 AM EST Hospital Encounter OR [facility], OPERATING ROOM [facility] [address] [place] [address] Joslyn Gonsalez MD [address] [place] [address] 10/17/2023 7:45 AM EST - 10/17/2023 11:48 AM EST Surgery OR [facility], OPERATING ROOM [facility], [facility] [address] [place] [address] Joslyn Gonsalez MD [address] [place] [address] PERCUTANEOUS NEPHROSTOLITHOTOMY UP TO 2CM 12/04/2023 10:45 AM EDT Office Visit Urology, [facility] 132 [facility] [place] [address] Peterson Graves MD 27 [facility] 270 [place] [address] Scheduled Procedures Name Priority Associated Diagnoses [...] this encounter Medical Devices Implanted Type Area Pharmaceutical Engineer Device Identifier Shelf Expiration Date Model / Serial / Lot Vitamesh Square 30cm X 30cm - [id number] Implanted:Qty : 1 on 04/21/2015 by Neno Crum MD at OR [facility] N/A: Abdomen [employer] ADE[employer] 01/07/2020 [id number] / / [id number] Mesh Capsure Fixation 30 - [id number] Implanted:Qty : 1 on 05/15/2022 by Neon Crum MD at OR [facility] CR BARD : DAVOL 08/06/2022 [id number] / / Cath Pwr Picc Solo Inj 4f - [id number] Implanted:Qty : 1 on 07/04/2023 at [facility] CR BARD : ACCESS SYSTEMS [id number] 11/06/2024 [id number] / / [id number] documented as of this encounter Advance Directives [...] and were consensually agreed upon. Care Teams Bottom Buffer Relationship Specialty Start Date End Date Apolinar Herrera DO 132 [place] [address] PCP - General Family Medicine 03/27/18 documented as of this encounter
--- OUTSIDE RECORDS SUMMARY | 2023-09-21 02:08 | External Medical Summary | Summary of Care ---
Author Name Unknown Organization [facility] Address [address] [place] [address] Phone [phone] Care Team Providers Care Butcher Meat Name Role Phone Apolinar Herrera DO Primary Care Provider Encounter Details Date Type Department Care Team (Late st Contact Info) Description 09/05/2023 11:00 AM EST Nurse Only Urology, [place] 132 [facility] [place] [address] [facility] Nurse Urology [facility] 132 [facility] [address] Allergies Active Allergy Reactions Criticality Noted Date [...] as of this encounter (statuses as of 09/05/2023) Medications Medication Sig Dispensed Refills Start Date [...] 1000 mL 11 09/13/2022 09/11/2023 Active Nystatin 939718 UNIT/GM External Cream Apply topically to affected [...] as of this encounter (statuses as of 09/05/2023) Active Problems Problem Noted Date Diagnosed Date [...] as of this encounter (statuses as of 09/05/2023) Resolved Problems Problem Noted Date Diagnosed Date [...] as of this encounter (statuses as of 09/05/2023) Immunizations Name Administration Dates Next Due COVID-19 mRNA, LNP-s, No Pre serve, 2-Dose Series ([employer]) 07/11/2021,12/23/2020,12/02/2020 Covid-19, Mrna, Lnp-s, Pf, B ivalent, 30 Mcg, IM, 12 yrs and above (Pfizer) 07/24/2022 Pneumococcal Conjugate Vacci ne, 20-valent ([id number]) 12/28/2022 Pneumococcal Polysaccharide PPV23 (Pneumovax) 12/12/2021,10/22/2016 Season [...] Answer Date Recorded PHQ Adult Total Score 0 08/07/2022 Sex and Gender Information Value Date Recorded [...] Yes 06/25/2023 documented as of this encounter Nursing Notes * June Smith LPN - 09/05/2023 11:10 AM EST Patient presents for indwelling catheter change. Current indwelling catheter removed. Patient prepped with betadine and # 24 silicone abel catheter with 10 ml balloon inserted without difficulty and connected to leg bag for return of cloudy urine. Pt complains of recent blockage, difficulty irrigating. Urine sample taken due to cloudy, odiferous urine. Patient tolerated the procedure. To return in 1 month for catheter change. documented in this encounter Plan of Treatment Upcoming Encounters Date Type Department Care Team (Latest Contact Info) Description 09/19/2023 1:00 PM EST Hospital Encounter Interventional Radiology [facility] [place] 1st Floor [address] [place] [address] 09/30/2023 1:30 PM EST Office Visit Urology, [place] [address] [place] [address] Kyle Stubbs PA-C [address] [place] [address] 09/30/2023 2:40 PM EST Office Visit [facility] [address] [address] Jules Vicente MD 166 [facility] 200 [place] [address] 10/01/2023 11:00 AM EST [facility] 132 [facility] [address] [place], Nurse Urology [facility] 132 [facility] [place] [address] 10/03/2023 10:00 AM EST Office Visit Dermatology[address] [address] Marian Álvarez PA-C [address] [place] [address] [place] [address] 10/04/2023 1:00 PM EST Office Visit Wound Care, [place] [address] [facility] [place], [place] [phone] Parker Valdez MD [address] [place] [address] 10/11/2023 12:45 PM EST Telemedicine General Surgery, [address] [phone] Neno Crum MD [address] [place], [place] [address] 10/15/2023 11:30 AM EST Office Visit Allergy/Immunolog y [facility] [place] [address] [place] [address] Kateryna Judge PA-C [address] [place] [address] 10/17/2023 7:45 AM EST Hospital Encounter OR [facility] OPERATING ROOM [facility]RE[facility] 100 N [facility] [place] [address] Joslyn Gonsalez MD [address] [place] [address] 10/17/2023 7:45 AM EST - 10/17/2023 11:48 AM EST Surgery OR [facility] 100 N [facility] [place] [address] Joslyn Gonsalez MD [address] [place] [address] PERCUTANEOUS NEPHROSTOLITHOTOMY UP TO 2CM 12/04/2023 10:45 AM EDT Office Visit Urology, [facility] 132 [address] [place] [address] Peterson Graves MD 27 [facility] 270 [place] [address] Scheduled Orders Name Type Priority Associated Diagnoses Orde r Schedule CULTURE, URINE, QUANTITATIVE Lab Routine Neurogenic bladder Expected: 09/05/2023, Expires: 09/05/2024 Scheduled Procedures Name Priority Associated Diagnoses Date/Ti me PERCUTANEOUS NEPHROSTOLITHOT KAROLINA UP TO 2CM Renal calculi 10/17/2023 7:45 AM EST Health Maintenance Due Date Last Done Comments Fecal Occult Blood Test 1998 Sigmoidoscopy 1998 COVID-19 Vaccine ( season) 2023 07/24/2022, 07/24/2022, 07/11/2021, Additional history exists Depression Screening 08/07/2023 08/07/2022 Cologuard 05/14/2024 05/14/2021, 04/11, 05/08/2021, Additional history exists Lipid Panel 06/30/2025 06/30/2020, 04/10, 04/16/2016, Additional [...] this encounter Medical Devices Implanted Type Area Diplomatic Interpreter Device Identifier Shelf Expiration Date Model / Serial / Lot Vitamesh Square 30cm X 30cm - [id number] Implanted:Qty : 1 on 04/21/2015 by Neno Crum MD [place] [facility] N/A: Abdomen [employer] ADE[employer] 01/07/2020 [id number] / / [id number] Mesh Capsure Fixation 30 - [id number] Implanted:Qty : 1 on 05/15/2022 by Neno Crum MD at [place] [facility] CR BARD : DAVOL 08/06/2022 [id number] / / Cath Pwr Picc Solo Inj 4f - [id number] Implanted:Qty : 1 on 07/04/2023 at [facility] CR BARD : ACCESS SYSTEMS [id number] 11/06/2024 [id number] / / [id number] documented as of this encounter Visit Diagnoses Diagnosis Neurogenic bladder- Primary Neurogenic bladder, NOS Renal calculi Calculus of kidney documented in [...] and were consensually agreed upon. Care Teams Butcher Meat Relationship Specialty Start Date End Date Apolinar Herrera DO 132 [place] [address] PCP - General Family Medicine 03/27/18 documented as of this encounter
--- OUTSIDE RECORDS SUMMARY | 2023-09-21 02:08 | External Medical Summary ---
Author Name Unknown Address Unknown Organization [id number]:LABORATORY [facility] - [address] [facility] [address] [facility] [address] Laboratory Report Ordering Provider Test Date Status CARMELA HIGGINBOTHAM 09/05/2023 11:14:03 Final Observation Date Value Abnormality Reference (Units ) Status Bacteria identified in Specimen by Culture 09/05/2023 11:14:03 [id number]^PROTEUS MIRABILIS Abnormal Final >100,000 colonies/mL Proteus mirabilis Performing Location LABORATORY [facility] - [address] [facility] [address] [facility] [address] Ordering Provider Test Date Status CARMELA HIGGINBOTHAM 09/05/2023 11:14:03 Final Observation Date Value Abnormality Reference (Units ) Status Ampicillin 09/05/2023 11:14:03 Resistant Final Ampicillin + Sulbactam 09/05/2023 11:14:03 <=2 Susceptible Final Cefazolin 09/05/2023 11:14:03 <=4 Susceptible Final Cefepime susceptibility 09/05/2023 11:14:03 <=1 Susceptible Final cefOXitin [Susceptibility] 09/05/2023 11:14:03 16 Intermediate Final Ceftriaxone suceptibility 09/05/2023 11:14:03 <=1 Susceptible Final Ciprofloxacin 09/05/2023 11:14:03 >=4 Resistant Final Due to serious side effects, the FDA has advised against using Ciprofloxacin to treat uncomplicated UTIs and respiratory tract infections unless there are no alternative treatment options. Gentamicin susceptibility 09/05/2023 11:14:03 <=1 Susc eptible Final Levofloxacin susceptibility 09/05/2023 11:14:03 >=8 Re sistant Final Due to serious side effects, the FDA has advised against using Levofloxacin to treat uncomplicated UTIs and respiratory tract infections unless there are no alternative treatment options. TMP-SMZ susceptibility 09/05/2023 11:14:03 160 Resista nt Final Test: Culture, Urine, Quanti tative
Specimen Source: Urine, Catheter
Specimen Type: Urine
Specimen Date: 09/05/2023 11:14 AM
Result Date: 09/09/2023 4:14 PM
Result Status: Final result
Abnormal: Yes
Resulting Lab: LABORATORY [facility]
[address]
[place] [address]

CULTURE

>100,000 colonies/mL Proteus mirabilis (Abnormal)

SUSCEPTIBILITY

Proteus mirabilis
METHOD MICROBROTH
DILUTIONS

AMPICILLIN -- Resistant
AMPICILLIN/SULBACTAM <=2 Susceptible
CEFAZOLIN <=4 Susceptible
CEFEPIME <=1 Susceptible
CEFOXITIN 16 Intermediate
CEFTRIAXONE <=1 Susceptible
CIPROFLOXACIN >=4 Resistant [1]
GENTAMICIN <=1 Susceptible
LEVOFLOXACIN >=8 Resistant [2]
TRIMETH/SULFAMETHOXAZOLE 160 Resistant

[1] Due to serious side effects, the FDA has advised against using
Ciprofloxacin to treat uncomplicated UTIs and respiratory tract infections
unless there are no alternative treatment options.

[2] Due to serious side effects, the FDA has advised against using
Levofloxacin to treat uncomplicated UTIs and respiratory tract infections
unless there are no alternative treatment options.

null Performing Location LABORATORY [facility] - [address] [facility] [address]
--- OUTSIDE RECORDS SUMMARY | 2023-09-21 02:08 | External Medical Summary | Summary of Care ---
Author Name Unknown Organization [facility] Address [address] [place] [address] Phone [phone] Care Team Providers Care Social Media Marketing Manager Name Role Phone Apolinar Herrera DO Primary Care Provider Encounter Details Date Type Department Care Team (Late st Contact Info) Description 08/28/2023 Orders Only Family Practice [facility] 132 [address] [facility] [place] [address] Apolinar Herrera DO 132 [address] [facility] [place] [address] Allergies Active Allergy Reactions Criticality Noted Date [...] as of this encounter (statuses as of 08/28/2023) Medications Medication Sig Dispensed Refills Start Date [...] 1000 mL 11 09/13/2022 09/11/2023 Active Nystatin 415452 UNIT/GM External Cream Apply topically to affected [...] as of this encounter (statuses as of 08/28/2023) Active Problems Problem Noted Date Diagnosed Date [...] as of this encounter (statuses as of 08/28/2023) Resolved Problems Problem Noted Date Diagnosed Date [...] as of this encounter (statuses as of 08/28/2023) Immunizations Name Administration Dates Next Due COVID-19 mRNA, LNP-s, No Pre serve, 2-Dose Series (Gongpingjia) 07/11/2021,12/23/2020,12/02/2020 Covid-19, Mrna, Lnp-s, Pf, B ivalent, 30 Mcg, IM, 12 yrs and above (Pfizer) 07/24/2022 Pneumococcal Conjugate Vacci ne, 20-valent ([id number]) 12/28/2022 Pneumococcal Polysaccharide PPV23 (Pneumovax) 12/12/2021,10/22/2016 Season [...] Department Care Team (Latest Contact Info) Description 08/29/2023 11:30 AM EST Nurse Only Urology, [facility] 132 [facility] [place] [address] [place] Nurse Urology Александр 132 [facility] [place] [address] 09/19/2023 1:00 PM EST Appointment Interventional Radiology [facility], [facility] 1st Floor [address] [place] [phone] 09/30/2023 1:30 PM EST Office Visit Urology, [place] [address] [place], [place] [phone] Kyle Stubbs PA-C [address] [place], [place] [phone] 09/30/2023 2:40 PM EST Office Visit [address] [address] Jules Vicente MD 166 [facility] 200 [place] [address] 10/03/2023 10:00 AM EST Office Visit Dermatology[address] [address] Marian Álvarez PA-C [address] [place] [address] [place] [address] 10/11/2023 12:45 PM EST Telemedicine General Surgery, [address] [phone] eNno Crum MD [address] [place] [address] 10/15/2023 11:30 AM EST Office Visit Allergy/Immunolog y [place] [facility] [address] [place] [address] Kateryna Judge PA-C [address] [place] [address] 10/17/2023 7:45 AM EST Hospital Encounter OR [facility], OPERATING ROOM [facility], [facility]Y PAVJAMESDERRICK [address] [place] [address] Joslyn Gonsalez MD [address] [place] [address] 10/17/2023 7:45 AM EST - 10/17/2023 11:48 AM EST Surgery OR [facility], OPERATING ROOM [facility], L[facility]Y ANDRESILIDERRICK [address] [place] [address] Joslyn Gonsalez MD [address] [place] [address] PERCUTANEOUS NEPHROSTOLITHOTOMY UP TO 2CM 12/04/2023 10:45 AM EDT Office Visit Urology, [facility] 132 [facility] [place] [address] Peterson Graves MD [address] [place] [address] [place] [address] Scheduled Procedures Name Priority Associated Diagnoses Date/Ti [...] this encounter Medical Devices Implanted Type Area Aerospace Control And Warning Systems Device Identifier Shelf Expiration Date Model / Serial / Lot Vitamesh Square 30cm X 30cm - [id number] Implanted:Qty : 1 on 04/21/2015 by Neno Crum MD at OR [facility] N/A: Abdomen [employer] A[employer] 01/07/2020 [id number] / / [id number] Mesh Capsure Fixation 30 - [id number] Implanted:Qty : 1 on 05/15/2022 by Neno Crum MD at OR [facility] CR BARD : DAVOL 08/06/2022 [id number] / / Cath Pwr Picc Solo Inj 4f - [id number] Implanted:Qty : 1 on 07/04/2023 at [facility] CR BARD : ACCESS SYSTEMS [id number] 11/06/2024 [id number] / / [id number] documented as of this encounter Procedures Procedure Name Priority Date/Time Associated Diagnosis Comments CHEMISTRY-OUTSIDE Routine 07/19/2023 CHEMISTRY-OUTSIDE Routine 07/12/2023 documented in this encounter Results * (ABNORMAL) CHEMISTRY-OUTSIDE (07/19/2023) Not all results display below - see scan for full detail OUTSIDE LAB (SEE SCANNED REPORT) Comment:SEE SCAN - CMP, CBCD CREATININE-OUTSID E LAB 0.47(A) 0.6 - 1.4 MG/DL OUTSIDE LAB (SEE SCANNED REPORT) EGFR-OUTSIDE LAB 112.6 ML/MIN OUT SIDE LAB (SEE SCANNED REPORT) POTASSIUM-OUTSIDE LAB 4.2 3.5 - 5.1 MMOL/L OUTSIDE LAB (SEE SCANNED REPORT) GLUCOSE-OUTSIDE LAB 101(A) 70 - 99 MG/DL OUTSIDE LAB (SEE SCANNED REPORT) HOURS FASTING OUTSID E LAB (SEE SCANNED REPORT) TRIGLYCERIDES-OUT SIDE LAB OUTSIDE LAB (SEE SCANNED REPORT) CHOLESTEROL-OUTSI DE LAB OUTSIDE LAB (SEE SCANNED REPORT) HDL-OUTSIDE LAB OUTS JEANNIE LAB (SEE SCANNED REPORT) CHOL/HDL RATIO-OUTSIDE LAB OUTSIDE LA B (SEE SCANNED REPORT) LDL (CALCULATED)-OUTS JEANNIE LAB OUTSIDE LAB (SEE SCANNED REPORT) LDL (DIRECT MEASURE)-OUTSIDE LAB OUTSIDE LAB (SEE SCANNED REPORT) HEMOGLOBIN, C7Y-JLTPRIL LAB OUTSIDE LAB (SEE SCANNED REPORT) PHOSPHORUS-OUTSID E LAB OUTSIDE LAB (SEE SCANNED REPORT) PTH-OUTSIDE LAB OUTS JEANNIE LAB (SEE SCANNED REPORT) MICROALBUMIN RATIO-OUTSIDE LAB OUTSIDE LA B (SEE SCANNED REPORT) PROTEIN, UA-OUTSIDE LAB OUTSIDE LAB (SEE SCANNED REPORT) HEMOGLOBIN-OUTSID E LAB 9.3(A) 14.0 - 18.0 G/DL OUTSIDE LAB (SEE SCANNED REPORT) 07/19/2023 History Per Patient LABORATORY OUTSIDE LAB (SEE SCANNED REPORT) * (ABNORMAL) CHEMISTRY-OUTSIDE (07/12/2023) Not all results display below - see scan for full detail OUTSIDE LAB (SEE SCANNED REPORT) Comment:SEE SCAN - CMP ,CBCD CREATININE-OUTSID E LAB OUTSIDE LAB (SEE SCANNED REPORT) Comment:UNABLE TO READ EGFR-OUTSIDE LAB 121.6 ML/MIN OUT SIDE LAB (SEE SCANNED REPORT) POTASSIUM-OUTSIDE LAB 3.5 3.5 - 5.1 MMOL/L OUTSIDE LAB (SEE SCANNED REPORT) GLUCOSE-OUTSIDE LAB 106(A) 70 - 99 MG/DL OUTSIDE LAB (SEE SCANNED REPORT) HOURS FASTING OUTSID E LAB (SEE SCANNED REPORT) TRIGLYCERIDES-OUT SIDE LAB OUTSIDE LAB (SEE SCANNED REPORT) CHOLESTEROL-OUTSI DE LAB OUTSIDE LAB (SEE SCANNED REPORT) HDL-OUTSIDE LAB OUTS JEANNIE LAB (SEE SCANNED REPORT) CHOL/HDL RATIO-OUTSIDE LAB OUTSIDE LA B (SEE SCANNED REPORT) LDL (CALCULATED)-OUTS JEANNIE LAB OUTSIDE LAB (SEE SCANNED REPORT) LDL (DIRECT MEASURE)-OUTSIDE LAB OUTSIDE LAB (SEE SCANNED REPORT) HEMOGLOBIN, P9F-UKEXDGH LAB OUTSIDE LAB (SEE SCANNED REPORT) PHOSPHORUS-OUTSID E LAB OUTSIDE LAB (SEE SCANNED REPORT) PTH-OUTSIDE LAB OUTS JEANNIE LAB (SEE SCANNED REPORT) MICROALBUMIN RATIO-OUTSIDE LAB OUTSIDE LA B (SEE SCANNED REPORT) PROTEIN, UA-OUTSIDE LAB OUTSIDE LAB (SEE SCANNED REPORT) HEMOGLOBIN-OUTSID E LAB 9.2(A) 14.0 - 18.0 G/DL OUTSIDE LAB (SEE SCANNED REPORT) 07/12/2023 History Per Patient LABORATORY OUTSIDE LAB (SEE SCANNED REPORT) documented in this encounter Advance Directives Latest [...] and were consensually agreed upon. Care Teams Social Media Marketing Manager Relationship Specialty Start Date End Date Apolinar Herrera DO 132 [place] [address] PCP - General Family Medicine 03/27/18 documented as of this encounter
--- OUTSIDE RECORDS SUMMARY | 2023-09-21 02:08 | External Medical Summary ---
Author Name Unknown Address Unknown Organization [id number]:LABORATORY [facility] [place] - [address] [place] [address] Laboratory Report Ordering Provider Test Date Status SINGER ELIZABETH 09/10/2023 18:40:00 Final Observation Date Value Abnormality Reference (Units ) Status Lactic Acid, Whole Blood 09/10/2023 18:40:00 2.5 Above high normal 0.4-2.0 (mmol/L) Final Performing Location LABORATORY C - [address] [place] [address]
--- OUTSIDE RECORDS SUMMARY | 2023-09-21 02:08 | External Medical Summary ---
Author Name Unknown Address Unknown Organization K01:[facility]ORY [facility] [place] [address] [place] [address] Laboratory Report Ordering Provider Test Date Status ELIZABETHDELGADO 09/10/2023 21:42:00 Final Observation Date Value Abnormality Reference (Units ) Status Lactic Acid, Whole Blood 09/10/2023 21:42:00 1.4 0.4-2.0 (mmol/L) Final Performing Location LABORATORY C - [address] [place] [address]
--- OUTSIDE RECORDS SUMMARY | 2023-09-21 02:08 | External Medical Summary ---
Author Name Unknown Address Unknown Organization K01:[facility]ORY [facility] [place] [facility] [address] [place] [address] Laboratory Report Ordering Provider Test Date Status SINGER ELIZABETH 09/10/2023 18:40:00 Final Observation Date Value Abnormality Reference (Units ) Status WBC, Total 09/10/2023 18:40:00 9.33 4.00-10.80 (K/uL) Final RBC 09/10/2023 18:40:00 4.79 4.50-5.25 (M/uL) Final Hemoglobin 09/10/2023 18:40:00 11.6 Below low normal 14.0-16.8 (g/dL) Final HCT 09/10/2023 18:40:00 39.4 Below low normal 40.0-48.4 (%) Final MCV 09/10/2023 18:40:00 82.3 82.0-99.5 (fL) Final MCH 09/10/2023 18:40:00 24.2 27.0-34.0 (pg) Final MCHC 09/10/2023 18:40:00 29.4 32.0-36.0 (g/dL) Final RDW 09/10/2023 18:40:00 15.7 11.5-15.5 (%) Final Platelets 09/10/2023 18:40:00 379 140-400 (K/uL) Final MPV 09/10/2023 18:40:00 8.6 6.6-11.1 (fL) Final Nucleated erythrocytes/100 leukocytes [Ratio] in Blood by Automated count 09/10/2023 18:40:00 0 <=0 (/100 WBCs) Final Performing Location LAB[facility]ATORY [facility] - [address] [place] [address]
--- OUTSIDE RECORDS SUMMARY | 2023-09-21 02:08 | External Medical Summary | Summary of Care ---
Author Name Unknown Organization [facility] Address [address] [place] [address] Phone [phone] Care Team Providers Care Firestopper Technician Name Role Phone Apolinar Herrera DO Primary Care Provider Encounter Details Date Type Department Care Team (Late st Contact Info) Description 09/05/2023 11:00 AM EST Nurse Only Urology, [place] [facility] [address] [place] [address] [facility] Nurse Urology [facility] [address] [facility] [address] Allergies Active Allergy Reactions Criticality Noted Date [...] 1000 mL 11 09/13/2022 09/11/2023 Active Nystatin 091034 UNIT/GM External Cream Apply topically to affected [...] mRNA, LNP-s, No Pre serve, 2-Dose Series (MediaSilo) 07/11/2021,12/23/2020,12/02/2020 Covid-19, Mrna, Lnp-s, Pf, B ivalent, 30 Mcg, IM, 12 yrs and above (Pfizer) 07/24/2022 Pneumococcal Conjugate Vacci ne, 20-valent ([id number]) 12/28/2022 Pneumococcal Polysaccharide PPV23 (Pneumovax) 12/12/2021,10/22/2016 Season [...] 1:00 PM EST Hospital Encounter Interventional Radiology [facility], [address] 1st Floor [address] [place] [address] 09/30/2023 1:30 PM EST Office Visit Urology, [place] [address] [place] [address] Kyle Stubbs PA-C [address] [place] [address] 09/30/2023 2:40 PM EST Office Visit [facility] [address] [address] Jules Vicente MD 166 [facility] [address] [place] [address] 10/01/2023 11:00 AM EST [facility] [address] [place], Nurse Urology [facility] 132 [facility] [place] [address] 10/03/2023 10:00 AM EST Office Visit Dermatology[address] [address] Marian Álvarez PA-C [address] [place] [address] [place] [address] 10/04/2023 1:00 PM EST Office Visit Wound Care, [place] [address] [facility] [place], [place] [id number] Parker Valdez MD [address] [place] [address] 10/11/2023 12:45 PM EST Telemedicine General Surgery, [address] [address] Neno Crum MD [address] [place], [place] [address] 10/15/2023 11:30 AM EST Office Visit Allergy/Immunolog y [facility] [place] [address] [place] [address] Kateryna Judge PA-C [address] [place] [address] 10/17/2023 7:45 AM EST Hospital Encounter OR [facility], OPERATING ROOM [facility], [facility] [address] [facility] [place] [address] Joslyn Gonsalez MD [address] [place] [address] 10/17/2023 7:45 AM EST - 10/17/2023 11:48 AM EST Surgery [facility] 100 [address] [facility] [place] [address] Joslyn Gonsalez MD [address] [place] [address] PERCUTANEOUS NEPHROSTOLITHOTOMY UP TO 2CM 12/04/2023 10:45 AM EDT Office Visit Urology, [facility] [address] [address] Peterson Graves MD 27 [facility] 270 [place] [address] Scheduled [...] this encounter Medical Devices Implanted Type Area Lime Sludge Kiln Operator Device Identifier Shelf Expiration Date Model / Serial / Lot Vitamesh Square 30cm X 30cm - [id number] Implanted:Qty : 1 on 04/21/2015 by Neno Crum MD at OR [facility] N/A: Abdomen [employer] A[employer] 01/07/2020 [id number] / / [id number] Mesh Capsure Fixation 30 - [id number] Implanted:Qty : 1 on 05/15/2022 by Neno Crum MD at OR [facility] CR BARD : DAVOL 08/06/2022 [id number] / / Cath Pwr Picc Solo Inj 4f - [id number] Implanted:Qty : 1 on 07/04/2023 at [facility] CR BARD : [employer]ESS SYSTEMS [id number] 11/06/2024 [id number] / / [id number] documented as of this encounter Visit Diagnoses [...] and were consensually agreed upon. Care Teams Firestopper Technician Relationship Specialty Start Date End Date Apolinar Herrera DO [address] [place] [address] PCP - General Family Medicine 03/27/18 documented as of this encounter
--- OUTSIDE RECORDS SUMMARY | 2023-09-21 02:08 | External Medical Summary ---
Author Name Unknown Address Unknown Organization K01:LABORATORY C - 100 [facility] [address] Laboratory Report Ordering Provider Test Date Status SINGER ELIZABETH 09/10/2023 18:40:00 Final Observation Date Value Abnormality Reference (Units ) Status SYNC LEUKOCYTES IN BLOOD BY AUTOMATED COUNT 09/10/2023 18:40:00 9.33 4.00-10.80 (K/uL) Final Segs 09/10/2023 18:40:00 71.8 40.0-75.0 (%) Final Lymphs % 09/10/2023 18:40:00 16.1 Below low normal 18.0-42.0 (%) Final Monos 09/10/2023 18:40:00 8.1 1.0-11.0 (%) Final Eosinophils 09/10/2023 18:40:00 3.3 0.0-6.0 (%) Final Basos 09/10/2023 18:40:00 0.3 0.0-2.0 (%) Final Immature Granulocyte, Percent 09/10/2023 18:40:00 0.4 0.0-2.0 (%) Final Absolute Segs 09/10/2023 18:40:00 6.69 1.80-7.70 (K/uL) Final Lymphs, absolute 09/10/2023 18:40:00 1.50 1.00-4.80 (K/ul) Final Monos, Abs 09/10/2023 18:40:00 0.76 0.00-1.10 (K/uL) Final Eos, Abs 09/10/2023 18:40:00 0.31 0.00-0.70 (K/uL) Final Basos, Abs 09/10/2023 18:40:00 0.03 0.00-0.20 (K/uL) Final Immature Granulocytes, Number 09/10/2023 18:40:00 0.04 0.00-0.20 (K/uL) Final Performing Location LABORATORY [facility] - [facility] [place] [address]
--- OUTSIDE RECORDS SUMMARY | 2023-09-21 02:09 | External Medical Summary | Summary of Care ---
Author Name Unknown Organization [facility] Address [address] [place] [address] Phone [phone] Care Team Providers Care Transitional Care Liaison Name Role Phone Apolinar Herrera DO Primary Care Provider Reason for Visit * Precert (Within 10 days (routine)) - Authorized Specialty Diagnoses / Procedures Referred By Michael connor Referred To Contact Radiology Diagnoses Renal calculi Hydronephrosis with renal and ureteral calculus obstruction Procedures IR GENITORINARY NEPHRO/CYSTO/URETERAL [place] EXCHANGE NEPHROSTOMY CATHETER PRQ W/IMG GID RS&I Angelo Almazan MD [address] [place] [address] Referral ID Status Reason Start Date Expiration Date V isits Requested Visits Authorized [id number] Authorized Precert 09/26/2023 04/13/[id number] Encounter Details Date Type Department Care Team (Latest Contact Info) Description 08/05/2023 11:59 PM EST Hospital Encounter Interventional Radiology [facility] [address] [place] [address] Canceled (Patient Cancel-Schedule Preference) Discharge Disposition: Home - Self Care Allergies [...] as of this encounter (statuses as of 08/12/2023) Medications Medication Sig Dispensed Refills Start Date End Date Status SALINE NASAL SPRAY 0.65 % NA SOLN Administer into nostril. 0 Active Polyethylene Glycol 3350 17 GM/SCOOP Oral PowderIndications:a s needed Take by mouth. Indications: as needed 0 Active Zinc Plus Vitamin C 50-90 MG Oral Capsule (Zinc Oxide-Vitamin C) Take by mouth daily . 0 Active Renacidin Irrigation Solution Irrigate with as directed 30-60 mL daily as needed (bladder debris). 1000 mL 6 12/25/2021 Active Renacidin Irrigation Solution Irrigate with 30 mL as directed daily. 900 mL 11 09/13/2022 09/12/2023 Active Sterile Water for Irrigation Irrigation Solution Irrigate SPT every 8 hrs as needed for malfunction and debris 1000 mL 11 09/13/2022 09/11/2023 Active Nystatin 767050 UNIT/GM External Cream Apply topically to affected [...] Capsule Take by mouth. 0 Activ e Bisacodyl 10 MG Rectal Suppository (Dulcolax) Administer 1 Suppository into the rectum in the morning. 0 Active documented as of this encounter (statuses as of 08/12/2023) Active Problems Problem Noted Date Diagnosed Date Ventral hernia 05/16/2022 Medical home patient encounter 05/16/2022 Food insecurity 05/22/2021 Overview: Per [facility] Protocol Renal calculi 03/24/2020 Pressure ulcer of ischial [...] as of this encounter (statuses as of 08/12/2023) Resolved Problems Problem Noted Date Diagnosed Date Resolved Date Acute pyelonephritis 07/01/2023 023 Septic shock 06/25/2023 07/10/2023 Hx of sepsis 11/04/2017 09/21/2019 Sepsis 10/21/2017 [...] as of this encounter (statuses as of 08/12/2023) Immunizations Name Administration Dates Next Due COVID-19 mRNA, LNP-s, No Pre serve, 2-Dose Series (Coverity) 07/11/2021,12/23/2020,12/02/2020 Covid-19, Mrna, Lnp-s, Pf, B ivalent, 30 Mcg, IM, 12 yrs and above (Coverity) 07/24/2022 Pneumococcal Conjugate Vacci ne, 20-valent ([id number]) 12/28/2022 Pneumococcal Polysaccharide PPV23 (Pneumovax) 12/12/2021,10/22/2016 SEASONAL INFLUENZA, PF, 6 M & Above, IM , (FLULAVAL or FLUZONE) 06/18/2022 Season Influenza, Quad, PF, Adjuvanted, 65+ Yrs, IM (FLUAD) 07/11/2021,06/30/2020 Seasonal Influenza, Quadriva lent Hd (Fluzone Hd) [...] (15 years old or older) Yes 06/25/20 23 Cognitive Status Response Date of Assessm ent Because of a physical, menta l, or emotional condition, do you have serious difficulty concentrating, remembering, or making decisions? (5 years old or older) Yes 06/25/2023 documented as of this encounter Plan of Treatment Upcoming Encounters Date Type Department Care Team (Latest Contact Info) Description 08/15/2023 3:30 PM EST Office Visit Urology, [place] [address] [place] [address] Kyle Stubbs PA-C [address] [place] [address] 08/28/2023 12:54 PM EST Hospital Encounter [place] [facility], OPERATING ROOM [facility] [address] [place] [address] Joslyn Gonsalez MD [address] [place] [address] 08/28/2023 12:54 PM EST - 08/28/2023 4:57 PM EST Surgery OR [facility], OPERATING ROOM [facility] [address] [place] [address] Joslyn Gonsalez MD [address] [place] [address] PERCUTANEOUS NEPHROSTOLITHOTOMY UP TO 2CM 09/19/2023 1:00 PM EST Appointment Interventional Radiology [facility] 1st Floor [address] [place] [address] 10/03/2023 10:00 AM EST Office Visit Dermatology[address] [address] Marian Álvarez PA-C [address] [place] [address] [place] [address] 10/11/2023 12:45 PM EST Telemedicine General Surgery, [address] [place] [address] Neno Crum MD 100 [address] [facility] [place] [address] 10/15/2023 11:30 AM EST Office Visit Allergy/Immunolog y [facility] [address] [place] [address] Kateryna Judge PA-C [address] [place] [address] 12/04/2023 10:45 AM EDT Office Visit Urology, [facility] 132 [facility] [place] [address] Peterson Graves MD [address] [place] [address] [place] [address] Scheduled Procedures Name Priority Associated Diagnoses Date/Ti me PERCUTANEOUS NEPHROSTOLITHOT KAROLINA UP TO 2CM Renal calculi 08/28/2023 12:54 PM EST Health Maintenance Due Date Last Done [...] this encounter Medical Devices Implanted Type Area Trustee Of Estate Device Identifier Shelf Expiration Date Model / Serial / Lot Vitamesh Square 30cm X 30cm - [id number] Implanted:Qty : 1 on 04/21/2015 by Neno Crum MD at [place] [facility] N/A: Abdomen [employer] 01/07/2020 [id number] / / [id number] Mesh Capsure Fixation 30 - [id number] Implanted:Qty : 1 on 05/15/2022 by Neno Crum MD at [place] [facility] CR BARD : DAVOL 08/06/2022 [id number] / / Cath Pwr Picc Solo Inj 4f - [id number] Implanted:Qty : 1 on 07/04/2023 at [facility] CR BARD : ACCESS SYSTEMS [id number] 11/06/2024 [id number] / / [id number] documented as of this encounter Advance Directives [...] and were consensually agreed upon. Care Teams Transitional Care Liaison Relationship Specialty Start Date End Date Apolinar Herrera DO [address] [place] [address] PCP - General Family Medicine 03/27/18 documented as of this encounter
--- OUTSIDE RECORDS SUMMARY | 2023-09-21 02:09 | External Medical Summary | Summary of Care ---
Author Name Unknown Organization [facility] Address [address] [place] [address] Phone [phone] Care Team Providers Care Wind Energy Technician Name Role Phone Apolinar Herrera DO Primary Care Provider Reason for Visit * Reason Onset Date Comments Appointment 08/09/2023 Encounter Details Date Type Department Care Team (Late st Contact Info) Description 08/09/2023 Telephone Urology Danica Holman [address] [place] [address] [place] [address] Peterson Graves MD [address] [place] [address] [place] [address] Appointment Allergies Active Allergy Reactions Criticality Noted Date [...] as of this encounter (statuses as of 08/19/2023) Medications Medication Sig Dispensed Refills Start Date [...] 1000 mL 11 09/13/2022 09/11/2023 Active Nystatin 781193 UNIT/GM External Cream Apply topically to affected [...] the rectum in the morning. 0 Active Sodium Chloride Flush 0.9 % Intravenous Solution Flush catheter with one syringe (10 mL) every morning. 300 mL 3 08/08/2023 Active documented as of this encounter (statuses as of 08/19/2023) Active Problems Problem Noted Date Diagnosed Date Ventral hernia 05/16/2022 Medical home patient encounter 05/16/2022 Food insecurity 05/22/2021 Overview: Per [facility] Protocol Renal calculi 03/24/2020 Pressure ulcer [...] as of this encounter (statuses as of 08/19/2023) Resolved Problems Problem Noted Date Diagnosed Date [...] as of this encounter (statuses as of 08/19/2023) Immunizations Name Administration Dates Next Due COVID-19 mRNA, LNP-s, No Pre serve, 2-Dose Series (Catawiki) 07/11/2021,12/23/2020,12/02/2020 Covid-19, Mrna, Lnp-s, Pf, B ivalent, 30 Mcg, IM, 12 yrs and above (Catawiki) 07/24/2022 Pneumococcal Conjugate Vacci ne, 20-valent ([id number]) 12/28/2022 Pneumococcal Polysaccharide PPV23 (Pneumovax) 12/12/2021,10/22/2016 SEASONAL [...] encounter Miscellaneous Notes * Telephone Encounter - Beau Campos OSA - 08/19/2023 8:28 AM EST Cath change scheduled 08/27/23. * Telephone Encounter - Francia Park OSA - 08/16/2023 4:05 PM EST Pt. Requesting call back to get an appt for his catheter change. documented in this encounter Plan of Treatment Upcoming Encounters Date Type Department Care Team (Latest Contact Info) Description 08/27/2023 11:30 AM EST Nurse Only Urology, [facility] [address] [facility] [place] [address] Tou[place], Nurse Urology [facility] [address] [place] [address] 08/28/2023 12:54 PM EST Hospital Encounter OR [facility], OPERATING ROOM [facility] [address] [place] [address] Joslyn Gonsalez MD [address] [place] [address] 08/28/2023 12:54 PM EST - 08/28/2023 4:57 PM EST Surgery OR [facility], OPERATING ROOM [facility], [facility] [address] [place] [address] Joslyn Gonsalez MD [address] [place] [address] PERCUTANEOUS NEPHROSTOLITHOTOMY UP TO 2CM 09/19/2023 1:00 PM EST Appointment Interventional Radiology [facility], [facility] 1st Floor [address] [place] [address] 10/03/2023 10:00 AM EST Office Visit Dermatology, [address] [address] Marian Álvarez PA-C [address] [place] [address] [place] [address] 10/11/2023 12:45 PM EST Telemedicine General Surgery, [address] [address] Neno Crum MD [address] [facility] [address] 10/15/2023 11:30 AM EST Office Visit Allergy/Immunolog y [facility] [address] [place] [address] Kateryna Judge PA-C [address] [place] [address] 12/04/2023 10:45 AM EDT Office Visit Urology, [facility] 132 [facility] [place] [id number] Peterson Graves MD 27 [facility] 270 [place] [address] Scheduled Procedures Name Priority Associated Diagnoses [...] Additional history exists AAA Screening Completed 06/04/2023, 0804/2022, 07/10/2021, Additional history exists Influenza Vaccine (FLU [...] this encounter Medical Devices Implanted Type Area Die Welder Device Identifier Shelf Expiration Date Model / Serial / Lot Vitame Square 30cm X 30cm - [id number] Implanted:Qty : 1 on 04/21/2015 by Neno Crum MD at OR [facility] N/A: Abdomen [employer] 01/07/2020 [id number] / / [id number] Mesh Capsure Fixation 30 - [id number] Implanted:Qty : 1 on 05/15/2022 by Neno Crum MD at OR [facility] CR BARD : DAVOL 08/06/2022 [id number] / / Cath Pwr Picc Solo Inj 4f - [id number] Implanted:Qty : 1 on 07/04/2023 at [facility] CR BARD : ACCESS SYSTEMS [id number] 11/06/2024 [id number] / / [id number] documented as of this encounter Advance Directives [...] and were consensually agreed upon. Care Teams Wind Energy Technician Relationship Specialty Start Date End Date Apolinar Herrera DO [address] [place] [address] PCP - General Family Medicine 03/27/18 documented as of this encounter
--- OUTSIDE RECORDS SUMMARY | 2023-09-21 02:09 | External Medical Summary | Summary of Care ---
Author Name Unknown Organization [facility] Address [address] [place] [address] Phone [phone] Care Team Providers Care C.O.D. Audit Clerk Name Role Phone Apolinar Herrera DO Primary Care Provider Reason for Visit * Reason Onset Date Comments Appointment 08/09/2023 Encounter Details Date Type Department Care Team (Late st Contact Info) Description 08/09/2023 Telephone Urology Danica Holman [address] [place] [address] Peterson Graves MD [address] [place] [address] [place] [address] Appointment Allergies Active Allergy Reactions Criticality Noted [...] as of this encounter (statuses as of 08/16/2023) Medications Medication Sig Dispensed Refills Start Date [...] 1000 mL 11 09/13/2022 09/11/2023 Active Nystatin 721741 UNIT/GM External Cream Apply topically to affected [...] as of this encounter (statuses as of 08/16/2023) Active Problems Problem Noted Date Diagnosed Date [...] as of this encounter (statuses as of 08/16/2023) Resolved Problems Problem Noted Date Diagnosed Date [...] as of this encounter (statuses as of 08/16/2023) Immunizations Name Administration Dates Next Due COVID-19 mRNA, LNP-s, No Pre serve, 2-Dose Series (Transparentrees) 07/11/2021,12/23/2020,12/02/2020 Covid-19, Mrna, Lnp-s, Pf, B ivalent, 30 Mcg, IM, 12 yrs and above (Transparentrees) 07/24/2022 Pneumococcal Conjugate Vacci ne, 20-valent ([id number]) 12/28/2022 Pneumococcal Polysaccharide PPV23 (Pneumovax) 12/12/2021,10/22/2016 SEASONAL [...] encounter Miscellaneous Notes * Telephone Encounter - Francia Park OSA - 08/16/2023 4:05 PM EST Pt. Requesting call back to get an appt for his catheter change. documented in this encounter Plan of Treatment Upcoming Encounters Date Type Department Care Team (Latest Contact Info) Description 08/28/2023 12:54 PM EST Hospital Encounter [place] [facility], OPERATING ROOM [facility], [facility] [address] [place] [address] Joslyn Gonsalez MD [address] [place] [address] 08/28/2023 12:54 PM EST - 08/28/2023 4:57 PM EST Surgery OR [facility], OPERATING ROOM [facility], [facility] [address] [place] [address] Joslyn Gonsalez MD [address] [place] [address] PERCUTANEOUS NEPHROSTOLITHOTOMY UP TO 2CM 09/19/2023 1:00 PM EST Appointment Interventional Radiology [facility], [facility] 1st Floor [address] [place] [address] 10/03/2023 10:00 AM EST Office Visit Dermatology, [address] [address] Marian Álvarez PA-C [address] [place] [address] [place] [address] 10/11/2023 12:45 PM EST Telemedicine General Surgery, [address], [place] [address] Neno Crum MD [address] [place] [address] 10/15/2023 11:30 AM EST [facility] [address] [place] [address] Kateryna Judge PA-C [address] [place] [address] 12/04/2023 10:45 AM EDT Office Visit Urology, [facility] 132 [facility] [place] [address] Peterson Graves MD [address] [place] [address] Scheduled Procedures Name Priority Associated Diagnoses [...] this encounter Medical Devices Implanted Type Area Cook Supervisor Device Identifier Shelf Expiration Date Model / Serial / Lot Quintonsh Square 30cm X 30cm - [id number] Implanted:Qty : 1 on 04/21/2015 by Neno Crum MD at [place] [facility] N/A: Abdomen [employer] 01/07/2020 [id number] / / [id number] Mesh Capsure Fixation 30 - [id number] Implanted:Qty : 1 on 05/15/2022 by Neno Crum MD at [place] [facility] CR BARD : DAVOL 08/06/2022 [id number] / / Cath Pwr Picc Solo Inj 4f - [id number] Implanted:Qty : 1 on 07/04/2023 at [facility] CR BARD : ACCESS SYSTEMS [id number] 11/06/2024 [id number] / / [id number] documented as of this encounter Advance Directives [...] and were consensually agreed upon. Care Teams C.O.D. Audit Clerk Relationship Specialty Start Date End Date Apolinar Herrera DO [address] [place] [address] PCP - General Family Medicine 03/27/18 documented as of this encounter
--- OUTSIDE RECORDS SUMMARY | 2023-09-21 02:09 | External Medical Summary | Summary of Care ---
Author Name Unknown Organization [facility] Address [address] [place] [address] Phone [phone] Care Team Providers Care Signs Sales Representative Name Role Phone Apolinar Herrera DO Primary Care Provider Reason for Visit * Reason Onset Date Comments Appointment 08/26/2023 2 Appts for 09/30 prior to procedure 10/17/23 Encounter Details Date Type Department Care Team (Late st Contact Info) Description 08/26/2023 Telephone Urology, [place] [address] [place] [address] Joslyn Gonsalez MD [address] [place] [address] Appointment (2 Appts for 09/30/23 prior to ... Allergies Active Allergy Reactions Criticality Noted Date [...] as of this encounter (statuses as of 08/26/2023) Medications Medication Sig Dispensed Refills Start Date [...] 1000 mL 11 09/13/2022 09/11/2023 Active Nystatin 248650 UNIT/GM External Cream Apply topically to affected [...] as of this encounter (statuses as of 08/26/2023) Active Problems Problem Noted Date Diagnosed Date [...] as of this encounter (statuses as of 08/26/2023) Resolved Problems Problem Noted Date Diagnosed Date [...] as of this encounter (statuses as of 08/26/2023) Immunizations Name Administration Dates Next Due COVID-19 mRNA, LNP-s, No Pre serve, 2-Dose Series (Sterecycle) 07/11/2021,12/23/2020,12/02/2020 Covid-19, Mrna, Lnp-s, Pf, B ivalent, 30 Mcg, IM, 12 yrs and above (Sterecycle) 07/24/2022 Pneumococcal Conjugate Vacci ne, 20-valent ([id number]) 12/28/2022 Pneumococcal Polysaccharide PPV23 (Pneumovax) 12/12/2021,10/22/2016 Season [...] 11:30 AM EST Nurse Only Urology, Shila Toure [place] [address] [facility] [place] [address] [place], Nurse Urology Александр [address] [place] [address] 09/19/2023 1:00 PM EST Appointment Interventional Radiology [facility], Lacyletty Craig 1st Floor [address] [place] [address] 09/30/2023 1:30 PM EST Office Visit Urology, [place] [address], [place] [phone] Kyle Stubbs PA-C [address] [place], [place] [phone] 09/30/2023 2:40 PM EST Office Visit Family [address] [address] Jules Vicente MD [address] [place] [address] 10/03/2023 10:00 AM EST Office Visit Dermatology, [address] [address] Marian Álvarez PA-C [address] [place] [address] [place] [address] 10/11/2023 12:45 PM EST Telemedicine General Surgery, [address] [place] [address] Neno Crum MD [address], [place] [id number] 10/15/2023 11:30 AM EST Office Visit Allergy/Immunolog y [facility] [place] [address] [place] [address] Kateryna Judge PA-C [address] [place] [address] 10/17/2023 7:45 AM EST Hospital Encounter [place] [facility], OPERATING ROOM [facility], [facility] [address] [place] [address] Joslyn Gonsalez MD [address] [place] [address] 10/17/2023 7:45 AM EST - 10/17/2023 11:48 AM EST Surgery OR [facility], OPERATING ROOM [facility], [facility] [address] [place] [address] Joslyn Gonsalez MD [address] [place] [address] PERCUTANEOUS NEPHROSTOLITHOTOMY UP TO 2CM 12/04/2023 10:45 AM EDT Office Visit Urology, [facility] 132 [facility] [place] [address] Peterson Graves MD 27 [facility] [address] [place] [address] Scheduled Procedures Name [...] this encounter Medical Devices Implanted Type Area Manager Event Device Identifier Shelf Expiration Date Model / Serial / Lot Vitamesh Square 30cm X 30cm - [id number] Implanted:Qty : 1 on 04/21/2015 by Neno Crum MD at OR [facility] N/A: Abdomen [employer] 01/07/2020 [id number] / / [id number] Mesh Capsure Fixation 30 - [id number] Implanted:Qty : 1 on 05/15/2022 by Neno Crum MD at OR [facility] CR BARD : DAVOL 08/06/2022 [id number] / / Cath Pwr Picc Solo Inj 4f - [id number] Implanted:Qty : 1 on 07/04/2023 at [facility] CR BARD : [employer] [id number] 11/06/2024 [id number] / / [id number] documented as of this encounter Advance Directives [...] and were consensually agreed upon. Care Teams Signs Sales Representative Relationship Specialty Start Date End Date Apolinar Herrera DO [address] [place] [address] PCP - General Family Medicine 03/27/18 documented as of this encounter
--- OUTSIDE RECORDS SUMMARY | 2023-09-21 02:09 | External Medical Summary | Summary of Care ---
Author Name Unknown Organization [facility] Address [address] [place] [address] Phone [phone] Care Team Providers Care Infrastructure Project Manager Name Role Phone Apolinar Herrera DO Primary Care Provider Reason for Visit * Reason Onset Date Comments Appointment 08/09/2023 Encounter Details Date Type Department Care Team (Late st Contact Info) Description 08/09/2023 Telephone Urology Danica Holman [address] [place] [address] Peterson Graves MD [address] [place] [address] [place] [address] Appointment Allergies Active Allergy Reactions Criticality Noted [...] 1000 mL 11 09/13/2022 09/11/2023 Active Nystatin 756334 UNIT/GM External Cream Apply topically to affected [...] mRNA, LNP-s, No Pre serve, 2-Dose Series (Memobox) 07/11/2021,12/23/2020,12/02/2020 Covid-19, Mrna, Lnp-s, Pf, B ivalent, 30 Mcg, IM, 12 yrs and above (Memobox) 07/24/2022 Pneumococcal Conjugate Vacci ne, 20-valent ([id number]) 12/28/2022 Pneumococcal Polysaccharide PPV23 (Pneumovax) 12/12/2021,10/22/2016 SEASONAL [...] 08/28/2023 12:54 PM EST Hospital En[place] [facility] [facility] [facility] [address] [place] [address] Joslyn Gonsalez MD [address] [place] [address] 08/28/2023 12:54 PM EST - 08/28/2023 4:57 PM EST Surgery [place] [facility] O[place] [facility] [address] [place] [address] Joslyn Gonsalez MD [address] [place] [address] PERCUTANEOUS NEPHROSTOLITHOTOMY UP TO 2CM 09/19/2023 1:00 PM EST Appointment Interventional Radiology [facility] 1st Floor [address] [place] [address] 10/03/2023 10:00 AM EST Office Visit Dermatology, [address] [address] Marian Álvarez PA-C [address] [place] [address] [place] [address] 10/11/2023 12:45 PM EST Telemedicine General Surgery, [address], [place] [address] Neno Crum MD [address] [place] [address] 10/15/2023 11:30 AM EST [facility] [address] [place] [address] Kateryna Judge PA-C [address] [place] [address] 12/04/2023 10:45 AM EDT Office Visit Urology, [facility] [address] [facility] [place] [address] Peterson Graves MD [address] [place] [...] this encounter Medical Devices Implanted Type Area Desulfurizer Machine Device Identifier Shelf Expiration Date Model / Serial / Lot Quintonsh Square 30cm X 30cm - [id number] Implanted:Qty : 1 on 04/21/2015 by Neno Crum [place] [facility] N/A: Abdomen [employer] 01/07/2020 [id number] / / [id number] Mesh Capsure Fixation 30 - [id number] Implanted:Qty : 1 on 05/15/2022 by Neno Crum MD [place] [facility] CR BARD : DAVOL 08/06/2022 [id number] / / Cath Pwr Picc Solo Inj 4f - [id number] Implanted:Qty : 1 on 07/04/2023 at [facility] CR BARD : [employer] [id number] 11/06/2024 [id number] / / [id number] documented as of this encounter Advance Directives [...] and were consensually agreed upon. Care Teams Infrastructure Project Manager Relationship Specialty Start Date End Date Apolinar Herrera DO [address] [place] [address] PCP - General Family Medicine 03/27/18 documented as of this encounter
--- OUTSIDE RECORDS SUMMARY | 2023-09-21 02:09 | External Medical Summary | Summary of Care ---
Author Name Unknown Organization [facility] Address [address] [place] [address] Phone [phone] Care Team Providers Care Swim Instructor Name Role Phone Apolinar Herrera DO Primary Care Provider Reason for Visit * Reason Onset Date Comments Surgery 08/26/2023 Procedure resche duled Encounter Details Date Type Department Care Team (Late st Contact Info) Description 08/26/2023 Telephone Urology, [place] [address] [place] [address] Joslyn Gonsalez MD [address] [place] [address] Surgery (Procedure rescheduled) Allergies Active Allergy Reactions Criticality Noted Date [...] 1000 mL 11 09/13/2022 09/11/2023 Active Nystatin 006568 UNIT/GM External Cream Apply topically to affected [...] mRNA, LNP-s, No Pre serve, 2-Dose Series ([employer]) 07/11/2021,12/23/2020,12/02/2020 Covid-19, Mrna, Lnp-s, Pf, B ivalent, 30 Mcg, IM, 12 yrs and above (Pfizer) 07/24/2022 Pneumococcal Conjugate Vacci ne, 20-valent ([id number]) 12/28/2022 Pneumococcal Polysaccharide PPV23 (Pneumovax) 12/12/2021,10/22/2016 Season [...] Telephone Encounter - Gregoria Gordon OSA - 08/26/2023 3:13 PM EST Called and spoke with pt to explain that since he did not come to his pre op appointments we would need to reschedule his procedure. He accepted 10/17/23 as date documented in this encounter Plan of Treatment Upcoming Encounters Date Type Department Care Team (Latest Contact Info) Description 08/27/2023 11:30 AM EST [facility] [address] [place], Nurse Urology [facility] 132 [facility] [place] [address] 09/19/2023 1:00 PM EST Appointment Interventional Radiology [facility], [facility] 1st Floor [address] [place] [address] 09/30/2023 2:40 PM EST Office Visit [address] [place] [address] Jules Vicente MD [address] [address] 10/03/2023 10:00 AM EST Office Visit Dermatology, [address] [address] Marian Álvarez PA-C [address] [place] [address] [place] [address] 10/11/2023 12:45 PM EST Telemedicine General Surgery, [address] [address] Neno Crum MD [address] [place] [address] 10/15/2023 11:30 AM EST Office Visit Allergy/Immunolog y Emily Gonsalez [place] [address] [place] [address] Kateryna Judge PA-C [address] [place] [address] 10/17/2023 7:45 AM EST Hospital Encounter [place] [facility], OPERATING ROOM [facility] [address] [place] [address] Joslyn Gonsalez MD [address] [place] [address] 10/17/2023 7:45 AM EST - 10/17/2023 11:48 AM EST Surgery [place] [facility], OPERATING RO[facility] [address] [facility] [place] [address] Joslyn Gonsalez MD [address] [place] [address] PERCUTANEOUS NEPHROSTOLITHOTOMY UP TO 2CM 12/04/2023 10:45 AM EDT Office Visit Urology, [facility] [address] [place] [facility] [place] [address] Peterson Graves MD 27 [facility] [address] [place] [address] Scheduled Procedures [...] this encounter Medical Devices Implanted Type Area Oracle Application Consultant Device Identifier Shelf Expiration Date Model / Serial / Lot Vitamesh Square 30cm X 30cm - [id number] Implanted:Qty : 1 on 04/21/2015 by Neno Crum MD at [place] [facility] N/A: Abdomen [employer] 01/07/2020 [id number] / / [id number] Mesh Capsure Fixation 30 - [id number] Implanted:Qty : 1 on 05/15/2022 by Neno Crum MD at [place] [facility] CR BARD : DAVOL 08/06/2022 [id number] / / Cath Pwr Picc Solo Inj 4f - [id number] Implanted:Qty : 1 on 07/04/2023 at [facility] CR BARD : [employer] [id number] 11/06/2024 [id number] / / [id number] documented as of this encounter Advance Directives [...] 11/08/2021 10:31 AM 11/08/2021 1:23 PM This order reflects the patients wishes and were consensually agreed upon. Care Teams Swim Instructor Relationship Specialty Start Date End Date Apolinar Herrera DO [address] [place] [address] PCP - General Family Medicine 03/27/18 documented as of this encounter
--- OUTSIDE RECORDS SUMMARY | 2023-09-21 02:10 | External Medical Summary | Summary of Care ---
Author Name Unknown Organization [facility] Address [address] [place] [address] Phone [phone] Care Team Providers Care Emergency Communications Dispatcher Name Role Phone Apolinar Herrera DO Primary Care Provider Reason for Visit * Reason Comments Follow Up * Evaluate & Treat - Unlimited Visits (Within 3 days (urgent)) - Pending Review Specialty Diagnoses / Procedures Referred By Michael connor Referred To Contact Urology Diagnoses Acute pyelonephritis Nghia Contreras MD [address] [facility] [place] [address] Referral ID Status Reason Start Date Expiration Date Visits Requested Visits Authorized [id number] Pending Review Specialty Services Required [phone] Encounter Details Date Type Department Care Team (Dae Contact Info) Description 07/24/2023 1:00 PM EST Office Visit Urology, [facility] [address] [place] [address] Joslyn Galvan MD [address], [place] [phone] Ureteral stone*; Neurogenic bladder; Recurrent UTI; UTI symptoms; History of kidney stones; Frequent UTI Allergies Active Allergy Reactions Criticality Noted Date [...] as of this encounter (statuses as of 07/24/2023) Medications Medication Sig Dispensed Refills Start Date [...] 1000 mL 11 09/13/2022 09/11/2023 Active Nystatin 297140 UNIT/GM External Cream Apply topically to affected [...] EVERY DAY 90 Tablet 1 05/01/2023 Active Tolterodine Tartrate ER 2 MG Oral Capsule Extended Release 24 Hour (Detrol LA) Take 1 capsule by mouth daily in the morning. 30 Capsule 0 07/05/2023 08/04/2023 Active Additional Information Patient not taking.Reported on 07/24/2023 Acetaminophen 325 MG Oral Capsule Take by mouth. 0 Activ e Bisacodyl 10 MG Rectal Suppository (Dulcolax) Administer 1 Suppository into the rectum in the morning. 0 Active documented as of this encounter (statuses as of 07/24/2023) Active Problems Problem Noted Date Diagnosed Date Ventral hernia 05/16/2022 Medical home patient encounter 05/16/2022 Food insecurity 05/22/2021 Overview: Per [facility] Protocol Renal calculi 03/24/2020 Pressure ulcer [...] as of this encounter (statuses as of 07/24/2023) Resolved Problems Problem Noted Date Diagnosed Date [...] as of this encounter (statuses as of 07/24/2023) Immunizations Name Administration Dates Next Due COVID-19 mRNA, LNP-s, No Pre serve, 2-Dose Series (CO2Stats) 07/11/2021,12/23/2020,12/02/2020 Covid-19, Mrna, Lnp-s, Pf, B ivalent, 30 Mcg, IM, 12 yrs and above (CO2Stats) 07/24/2022 Pneumococcal Conjugate Vacci ne, 20-valent ([id number]) 12/28/2022 Pneumococcal Polysaccharide PPV23 (Pneumovax) 12/12/2021,10/22/2016 SEASONAL [...] Cigarettes Q uit: 03/15/1974 Smokeless Tobacco: Never Tobacco Cessation:Counseling Given: Not Answered Comments:1 cigarette daily for approximately 6 weeks. quit in early Alcohol [...] Sign Reading Time Taken Comments Blood Pressure 144/66 07/24/2023 1:30 PM EST Pulse 78 07/24/2023 1:30 PM EST Temperature 36.4 C (97.5 F) 07/24/2023 1:30 PM ES T Respiratory Rate - - Oxygen Saturation - - Inhaled Oxygen Concentration - - Weight - [...] Yes 06/25/2023 documented as of this encounter Progress Notes * Joslyn Galvan MD - 07/24/2023 5:11 PM EST Please see cosigned note. * Abi Dudley PA-C - 07/24/2023 1:25 PM EST Est. PATIENT EXAMINATION - Urology Name: Vernon Sommer Date: 07/24/2023 Time: 1:25 PM PCP: Apolinar Herrera DO [address] [place] [address] C/c hospital d/c discuss antegrade treatment of stones HPI: This 68 year old male presents to the clinic today 07/24/2023 for hospital follow up to discuss antegrade treatment of stones. Pmhx significant for paraplegia 2/2 spina bifida, with subsequent neurogenic bladder and suprapubic catheter, frequent UTI, chronic sacral decubitous ulcers, GERD, and anxiety/depression. He has a colostomy. He arrives to clinic alone. He is in a wheelchair. [facility]. He was seen by Dr. Zavala as a hospital consult 06/26/23. He had left PCNL tube placed 06/25. Urologic history is significant for neurogenic bladder with SPT placed 11/28, Left PCNL 2012, Complex L URS LL with stent exchange 2019 after stent placement 06/25/23-07/10/23HOSPITAL COURSE (focused): Patient initially presented to [facility] for concern for blocked suprapubic catheter. The catheter was exchanged by urology and the patient became hypotensive. Labs showed leukocytosis and CT showed a 1.2 cm stone in the L ureter with hydronephrosis. Urology attempted placing a stent in the OR, however, the team was unable to do so and [facility] with IR. Patient was admitted to the ICU and started on broadspectrum antibiotics for septic shock. He underwent nephrostomy tube placement. Blood cx and body fluid grew multiple organisms (see below). ID was consulted. TTE was negative for IE. It was recommended that patient continue on IV Daptomycin and IV Cefepime until 07/11. Patient deemed stable for discharge to SNF. Will need urology follow up in the OP setting. Of note, it is not anticipated fabio need to be at SNF >30 days. He will complete his IV abx 07/11 and improve his mobility to baseline. After, he will discharge home where he is wheelchair bound at baseline. Today, patient reports feeling okay not happy to be in SNF PAST MEDICAL HISTORY: Past Medical History: Diagnosis Date Anxiety and depression Chronic headaches Constipation Decubital ulcer 07/05/2004 Decubitus ulcer of buttock GERD (gastroesophageal reflux disease) H/O Clostridium difficile infection Hematuria, microscopic IBS (irritable bowel syndrome) Neurogenic bladder Paraplegia (HCC) Parastomal hernia 04/22/2015 Recurrent UTI h/o VRE UTI Respiratory distress syndrome Sleep apnea, obstructive Spina bifida (HCC) Staghorn calculus URIN TRACT INFECTION NOS 01/03/1999 PMHx has been reviewed. PAST SURGICAL HISTORY: Past Surgical History: Procedure Laterality Date CIRCUMCISION,OTHER THAN CLAMP/SLIT<29 DAYS 1979 Circumcision,Othr, Glenvil COLONOSCOPY, DIAGNOSTIC (RECTUM) 09/13/2022 benign adenomatous polyps, repeat 6 mo / [facility] COLOSTOMY 05/2005 to prevent pressure sores CYSTOSCOPY/INSERTION OF STENT 02/03/2013 CYSTOURETHROSCOPY WITH INSERTION URETERAL STENT performed by Juhi Pinto MD at [facility] CYSTOURETERO W/LITHOTRIPSY 02/03/2013 CYSTOURETHROSCOPY URETEROSCOPY WITH LITHOTRIPSY performed by Juhi Pinto MD at [facility] CYSTOURETERO W/LITHOTRIPSY Left 03/04/2020 CYSTOURETHROSCOPY URETEROSCOPY WITH LITHOTRIPSY performed by Joslyn Galvan MD at [facility] EGD, FLEXIBLE, DIAGNOSTIC 12/12/2017 Schatzki ring, hiatal hernia, repeat 7-10 days/[facility] EGD, FLEXIBLE, DIAGNOSTIC 01/02/2018 GE junction ring, repeat 7-10 days/[facility] EGD, FLEXIBLE, DIAGNOSTIC 12/20/2017 severe Schatzki ring, repeat 7-10 days/[facility] EGD, FLEXIBLE, DIAGNOSTIC 08/05/2019 Ring, dilated. Retained food / [facility] EGD, FLEXIBLE, DIAGNOSTIC 08/05/2019 retained food, ? gastroparesis / [facility] EGD, FLEXIBLE, DIAGNOSTIC 06/21/2021 esophageal stenosis, hiatal hernia, repeat 2 wks / [facility] EGD, FLEXIBLE, DIAGNOSTIC 08/18/2021 esophageal stenosis / [facility] EGD, FLEXIBLE, DIAGNOSTIC 07/05/2021 Schatzki ring, repeat 1 mo / [facility] EGD, FLEXIBLE, DIAGNOSTIC 09/13/2022 Schatzki ring EXPLORATION OF ABDOMEN N/A 04/28/2015 EXPLORATORY LAPAROTOMY performed by Neno Crum MD at [facility] INCISION OF EARDRUM 08/2010 R serous otitis INFORMATION 2002 R sacral skin flap INFORMATION 06/2005 muscle skin flap in buttocks area INFORMATION 1980 amputations oftoes right foot IR ASPIRATION ABSCESS/COLLECTION 05/21/2022 IR GENITORINARY NEPHRO/CYSTO/URETERAL 06/25/2023 IR VENOUS ACCESS NON-MEDIPORT 07/04/2023 LAPAROSCOPY DIAGNOSTIC N/A 04/28/2015 LAPAROSCOPY DIAGNOSTIC performed by Neno Crum MD at [facility] MOBILIZATION OF SPLENIC FLEXURE colostomy REMOVAL OF KIDNEY STONE, OVER 2CM 02/03/2013 PERCUTANEOUS NEPHROSTOLITHOTOMY OVER 2CM performed by Juhi Pinto MD at [facility] REMOVAL OF URETER, BLADDER CUFF repair of damage REMOVE ISCHIAL PRESSURE ULCER 02/08/2014 EXCISION ISCHIAL ULCER WITH PRIMARY SUTURE performed by Too Gandara MD at [facility] REPAIR INITIAL INCISIONAL OR VENTRAL HERNIA; REDUCIBLE N/A 03/04/2020 ROBOTIC REPAIR INITIAL INCISIONAL /VENTRAL HERNIA REDUCIBLE performed by Neno Crum MD at [facility] REPAIR INITIAL INCISIONAL OR VENTRAL HERNIA; REDUCIBLE N/A 05/15/2022 ROBOTIC REPAIR INITIAL INCISIONAL /VENTRAL HERNIA REDUCIBLE performed by Neno Crum MD at [facility] REPAIR RECURRENT INCISIONAL HERNIA N/A 04/21/2015 REPAIR RECURRENT INCISIONAL HERNIA REDUCIBLE performed by Neno Crum MD at [facility] REPAIR RECURRENT INCISIONAL HERNIA N/A 05/31/2016 REPAIR RECURRENT INCISIONAL HERNIA REDUCIBLE performed by Neno Crum MD at [facility] SKIN FLAP TRANSPLANT 1998 to repair R hip decubitusm at [facility] SUBQ DEBRIDEMENT, FIRST 20 CM2 12/21/2013 DEBRIDEMENT SKIN AND SUBCUTANEOUS TISSUE performed by Too Gandara MD at [facility] SUPRAPUBIC TUBE CHANGE SIMPLE/NURSE N/A 11/08/2021 CHANGE CYSTOSTOMY TUBE SIMPLE performed by Peterson Graves MD at [facility] PSHx has been reviewed. FAMILY HISTORY: Family History Problem Relation Age of Onset Heart Disorder Mother Arthritis Father Paget's Cancer Brother Prostate, age 70 FMHx has been reviewed. SOCIAL HISTORY: Works As: disabled Lives with: [employer] [facility] care Social History Tobacco Use Smoking status: Former Types: Cigarettes Quit date: 03/15/1974 Years since quittin.3 Smokeless tobacco: Never Tobacco comments: 1 cigarette daily for approximately 6 weeks. quit in early s Vaping Use Vaping Use: Never used Substance Use Topics Alcohol use: Yes Comment: socially Drug use: No SHx has been reviewed. Current Outpatient Medications Medication Sig Dispense Refill SALINE NASAL SPRAY 0.65 % NA SOLN Administer into nostril. Polyethylene Glycol 3350 17 GM/SCOOP Oral Powder Take by mouth. Indications: as needed Zinc Plus Vitamin C 50-90 MG Oral Capsule (Zinc Oxide-Vitamin C) Take by mouth daily . Renacidin Irrigation Solution Irrigate with as directed 30-60 mL daily as needed (bladder debris). 1000 mL 6 Renacidin Irrigation Solution Irrigate with 30 mL as directed daily. 900 mL 11 Sterile Water for Irrigation Irrigation Solution Irrigate SPT every 8 hrs as needed for malfunctionand debris 1000 mL 11 Nystatin 527785 UNIT/GM External Cream Apply topically to affected area 3 times a day. To affacted area 90 g 5 Magnesium Oxide 400 MG Oral Capsule Take 1 Capsule by mouth in the morning. 30 Capsule 5 PARoxetine HCl 10 MG Oral Tablet (Paxil) Take 1 tablet by mouth daily for 2 weeks then take 2 tablets by mouth daily 180 Tablet 3 Sodium Hypochlorite 0.25 % External Solution Apply topically to affected area daily. 473 mL 2 Azelastine HCl 0.1 % Nasal Solution (Astelin) Administer 2 Sprays into nostril in the morning and 2Sprays before bedtime. 90 mL 3 Fluticasone Propionate 50 MCG/ACT Nasal Suspension (Flonase) Administer 2 Sprays into each nostril in the morning. 48 g 3 Pantoprazole Sodium 40 MG Oral Tablet Delayed Release (Protonix) TAKE 1 TABLET BY MOUTH EVERY DAY 90 Tablet 1 Acetaminophen 325 MG Oral Capsule Take by mouth. Bisacodyl 10 MG Rectal Suppository (Dulcolax) Administer 1 Suppository into the rectum in the morning. Tolterodine Tartrate ER 2 MG Oral Capsule Extended Release 24 Hour (Detrol LA) Take 1 capsule by mouth daily in the morning. (Patient not taking: Reported on 07/24/2023) 30 Capsule 0 No current facility-administered medications for this visit. Review of patient's allergies indicates: Allergen Reactions Vancomycin Hives Adhesive Tape Silk tape ( not true allergy), preeti brand ostomy wafer - skin breaks out Aspirin GI upset Clindamycin Rash Penicillins Rash 2012 while on ampicillin for skin decubitus wound Bilat lower extremity pruritic rash when taken for UTI- 04/2019 Pineapple Cleaning tongue Povidone Iodine Rash, reports hives ROS EXAM: CONSTITUTIONAL: No change in weight, No weakness, No fatigue, and No fevers, sweats, or chills ENT: (+) right ear Meniere's disease, can get dizzy if he gets up to fast NECK: No lumps or masses, No swollen glands, No recent swelling in thyroid area, No significant pain in neck, and No h/o goiter or thyroid disease CARDIOVASCULAR: No chest pain, No shortness of breath, No dyspnea on exertion, and No orthopnea PULMONARY: No cough, sputum, or hemoptysis, No wheezing, No rales, No shortness of breath, and No recent change in breathing GASTROINTESTINAL: No abdominal pain, No change in bowel habits, No significant heartburn, No significant change in appetite, and Positive for colostomy status, has sacral wound : As above MUSCULOSKELETAL: (+) joint pain, (+) joint swelling, and (+) muscle stiffness NEUROLOGIC: No headaches, No seizures, and Positive for decreased balance , fell over the summer Skin: Denies sweatiness, rash, itching, new/changing skin lesions, or bleeding All other systems normal/negative PHYSICAL EXAMINATION: Most Recent Vital Signs: BP 144/66 (BP Site: Left Arm, BP Position: Sitting, BP Cuff Size: Large) | Pulse 78 | Temp 36.4 C(97.5 F) (Tympanic) General: alert, awake, oriented to person and place and situation, arrives in wheelchair Eyes: no scleral icterus, normal conjunctiva, Extra ocular muscles intact. No obvious pupil asymmetry. Skin: Warm, dry, w/o rash or diaphoresis Ears nose mouth throat: Normocephalic, atraumatic no masses Cardiovascular regular rate, regular rhythm, no murmur Respiratory: clear to auscultation bilaterally, normal breath sounds GI: soft, non-tender, non-distended, normal bowel sounds, colostomy in place, with brown stool Musculoskeletal: no costo-vertebral angle tenderness trace edema bilateral lower extremities, PCNL tube in place : PENIS: SPT in place PSA Results: Lab Results Component Value Date/Time PSA - ELIZER 0.44 06/16/2008 11:22 AM PSA SCREENING 0.63 10/22/2016 10:47 AM PSA SCREENING 0.43 08/14/2010 10:44 AM PSA SCREENING RESULTS RECHECKED 08/14/2010 10:44 AM Impression: 1. 68 year old male history of paraplegia 2/2 spina bifida, neurogenic bladder s/p suprapubic catheter,colostomy c/b parastomal hernia, chronic sacral decubitus ulcer, admitted with urosepsis with good L PCN drainage for L ureteral obstructing stones. 2. Left nephrostomy tube in place 3. colostomy Plan: - Dr. Galvan obtained consent for surgery for kidney stone removal Abi Dudley PA-C Department of Urology [facility] 07/24/2023 1:25 PM Patient seen and examined with Dr. Galvan I have reviewed the advanced practitioner documentation and agree. I saw and evaluated the patient on date of service referenced in note and have performed the following medically appropriate historyand/or exam: as below. He/she to proceed with left PCNL, possible percutaneous left renal access. Risks include but not limited to: Infection/sepsis, bleeding, need for transfusion, AV fistula, pseudoaneurysm, loss of kidney function, need for embolization, need for nephrectomy, injury to urethra/bladder/ureter/collecting system/kidney, treatment failure, need for additional procedures, stone re currence, injury to lung/pleura/small bowel/colon/liver/spleen, need for postop chest tube, need for postop exploratory laparotomy, loss of renal function, risks of anesthesia. He/she understands that ureteral stent is temporary and must be removed following completion of treatment. He/she understands and agrees to proceed and informed consent signed. He understands increased risk of postop infection with prior infection and indwelling catheter. All questions answered. documented in this encounter Miscellaneous Notes * Addendum Note - Joslyn Galvan MD - 07/24/2023 5:12 PM ESTAddended by: JOSLYN GALVAN on: 07/24/2023 05:12 PM Modules accepted: Level of Service documented in this encounter Plan of Treatment Upcoming Encounters Date Type Department Care Team (Latest Contact Info) Description 07/30/2023 11:00 AM EST Appointment Interventional Radiology [facility] [place] 1st Floor [address] [facility] [place] [phone] 08/12/2023 12:00 PM EST Office Visit [facility] [address] [place] [address] Apolinar Herrera, [address] [place] [address] 08/14/2023 3:30 PM EST Office Visit General Internal Medicine, [facility] [address], [place] [phone] Dorothy Tran MD [address] [place] [address] 08/15/2023 3:30 PM EST Office Visit Urology, [facility] [address] [place], [place] [phone] Kyle Stubbs PA-C [address], [place] [phone] 08/28/2023 12:54 PM EST Hospital Encounter OR [facility], OPERATING ROOM [facility], [facility] [address], [place] [phone] Joslyn Galvan MD [address] [place] [address] 08/28/2023 12:54 PM EST - 08/28/2023 4:57 PM EST Surgery OR [facility] OPERATING ROOM [facility], [facility] [address] [place], [place] [phone] Joslyn Galvan MD [address], [place] [phone] PERCUTANEOUS NEPHROSTOLITHOTOMY UP TO 2CM 10/03/2023 10:00 AM EST Office Visit Dermatology[address] [address] Marian Álvarez PA-C [address] [place] [address] [place] [address] 10/11/2023 12:45 PM EST Telemedicine General Surgery, [address] [phone] Neno Crum MD [address] [place], [place] [address] 10/15/2023 11:30 AM EST [facility] [address] [place] [address] Kateryna Judge PA-C [address] [place] [address] 12/06/2023 10:45 AM EDT Office Visit Urology, [facility] [address] [facility] [place] [address] Peterson Graves MD [address] [place] [address] Scheduled Procedures Name Priority Associated Diagnoses Date/Ti me PERCUTANEOUS NEPHROSTOLITHOT KAROLINA UP TO 2CM Renal calculi 08/28/2023 12:54 PM EST Health Maintenance Due Date Last Done Comments Fecal Occult Blood Test 1998 Sigmoidoscopy 1998 COVID-19 Vaccine ( season) 2023 07/24/2022, 07/11/2021, 12/23/2020, Additional history exists Depression Screening 08/07/2023 08/07/2022 Cologuard 05/14/2024 05/14/2021, 04/11, 05/08/2021, Additional history exists Lipid Panel 06/30/2025 06/30/2020, 04/10, 04/16/2016, Additional history exists DTaP,Tdap,and Td Vaccines (3 - Td or Tdap) 03/17/2027 03/17/2017, 06/03/2012, 06/16/2006 Colonoscopy 09/13/2032 09/13/2022, 01/24/2004 Colorectal Cancer Screening 09/13/2032 Zoster Vaccines Completed 07/21/2021, 04/10, 11/18/2014 Pneumococcal Vaccine: 65+ Years Completed 12/28/2022, 12/12/2021, 10/22/2016, Additional history exists AAA Screening Completed 06/04/2023, 0804/2022, 07/10/2021, Additional history exists Influenza Vaccine (FLU shot) Completed , 06/18/2022, 07/11/2021, Additional history exists GARDASIL-HPV IMMUNIZATION SERIES Aged Out No longer eligible based on patient's age to complete this topic Hepatitis B Aged Out No longer eligi ble based on patient's age to complete this topic MENINGOCOCCAL (MENACTRA/MENVEO) Aged Out No longer eligible based on patient's age to complete this topic documented as of this encounter Medical Devices Implanted Type Area Yard Engineer Device Identifier Shelf Expiration Date Model / Serial / Lot Vitprietosh Square 30cm X 30cm - [id number] Implanted:Qty : 1 on 04/21/2015 by Neno Crum MD at [place] [facility] N/A: Abdomen [employer] 01/07/2020 [id number] / / [id number] Mesh Capsure Fixation 30 - [id number] Implanted:Qty : 1 on 05/15/2022 by Neno Crum MD at OR [facility] CR BARD : DAVOL 08/06/2022 [id number] / / Cath Pwr Picc Solo Inj 4f - [id number] Implanted:Qty : 1 on 07/04/2023 at [facility] CR BARD : [employer] [id number] 11/06/2024 [id number] / / [id number] documented as of this encounter Visit Diagnoses Diagnosis Ureteral stone- Primary Calculus of ureter Neurogenic bladder Neurogenic bladder, NOS Recurrent UTI Urinary tract infection, site not specified UTI symptoms Other symptoms involving urinary system History of kidney stones Personal history of urinary calculi Frequent UTI Urinary tract infection, site not specified Renal calculi Calculus of kidney documented in [...] and were consensually agreed upon. Care Teams Emergency Communications Dispatcher Relationship Specialty Start Date End Date Apolinar Herrera DO [address] [place] [address] PCP - General Family Medicine 03/27/18 documented as of this encounter"
--- OUTSIDE RECORDS SUMMARY | 2023-09-21 02:10 | External Medical Summary | Summary of Care ---
Author Name Unknown Organization [facility] Address [address] [place] [address] Phone [phone] Care Team Providers Care Operational Assistant Name Role Phone Apolinar Herrera DO Primary Care Provider Reason for Visit * Reason Comments Follow Up * Evaluate & Treat - Unlimited Visits (Within 3 days (urgent)) - Pending Review Specialty Diagnoses / Procedures Referred By Michael connor Referred To Contact Urology Diagnoses Acute pyelonephritis Nghia Contreras MD [address] [facility] [place] [address] Referral ID Status Reason Start Date Expiration Date Visits Requested Visits Authorized [id number] Pending Review Specialty Services Required [phone] Encounter Details Date Type Department Care Team (Dae Contact Info) Description 07/24/2023 1:00 PM EST Office Visit Urology, [place] [address] [place] [address] Joslyn Gonsalez MD [address], [place] [id number] Neurogenic bladder*; Recurrent UTI; UTI symptoms; History of kidney [...] 1000 mL 11 09/13/2022 09/11/2023 Active Nystatin 695661 UNIT/GM External Cream Apply topically to affected [...] encounter 05/16/2022 Food insecurity 05/22/2021 Overview: Per [facility] Protocol Renal calculi 03/24/2020 Pressure ulcer [...] mRNA, LNP-s, No Pre serve, 2-Dose Series ([employer]) 07/11/2021,12/23/2020,12/02/2020 Covid-19, Mrna, Lnp-s, Pf, B ivalent, 30 Mcg, IM, 12 yrs and above ([employer]) 07/24/2022 Pneumococcal Conjugate Vacci ne, 20-valent ([id number]) 12/28/2022 Pneumococcal Polysaccharide PPV23 (Pneumovax) 12/12/2021,10/22/2016 SEASONAL [...] 07/30/2023 11:00 AM EST Appointment Interventional Radiology [facility], [address] 1st Floor [address] [place] [facility] [place] [address] 08/12/2023 12:00 PM EST Office Visit Family [facility] [address] [address] Apolinar Herrera DO [address] [address] 08/14/2023 3:30 PM EST [facility] [address] [place] [facility] [place] [address] Dorothy Tran MD [address] [place] [address] 08/15/2023 3:30 PM EST Office Visit Urology, [place] [address] [place] [address] Kyle Stubbs PA-C [address] [facility] [place] [address] 08/28/2023 12:54 PM EST Hospital Encounter OR [facility], OPERATING ROOM [facility], [place] [facility] [address] [place] [address] Joslyn Gonsalez MD [address] [place] [facility] [address] 08/28/2023 12:54 PM EST - 08/28/2023 4:57 PM EST Surgery OR [facility], OPERATING ROOM [facility], [place] [facility] [address] [place] [address] Joslyn Gonsalez MD [address] [facility] [place] [address] PERCUTANEOUS NEPHROSTOLITHOTOMY UP TO 2CM 10/03/2023 10:00 AM EST Office Visit Dermatology, [address] [address] Marian Álvarez PA-C [address] [place] [address] [place] [address] 10/11/2023 12:45 PM EST Telemedicine General Surgery, [address] [address] Neno Crum MD [address] [facility] [place] [address] 10/15/2023 11:30 AM EST Office Visit Allergy/Immunolog y Emily Gonsalez [place] [address] [place] [address] Kateryna Judge PA-C [address] [place] [address] 12/06/2023 10:45 AM EDT Office Visit Urology, [facility] [address] [address] Peterson Graves MD 27 [facility] [address] [place] [address] Scheduled [...] this encounter Medical Devices Implanted Type Area Chaplain Resident Device Identifier Shelf Expiration Date Model / Serial / Lot Hallie Square 30cm X 30cm - [id number] Implanted:Qty : 1 on 04/21/2015 by Neno Crum MD at OR [facility] N/A: Abdomen [employer] 01/07/2020 [id number] / / [id number] Mesh Capsure Fixation 30 - [id number] Implanted:Qty : 1 on 05/15/2022 by Neno Crum MD at OR [facility] CR BARD : DAVOL 08/06/2022 [id number] / / Cath Pwr Picc Solo Inj 4f - [id number] Implanted:Qty : 1 on 07/04/2023 at [facility] CR BARD : [employer] [id number] 11/06/2024 [id number] / / [id number] documented as of this encounter Visit Diagnoses Diagnosis Neurogenic bladder- Primary Neurogenic bladder, NOS Recurrent UTI Urinary tract [...] and were consensually agreed upon. Care Teams Operational Assistant Relationship Specialty Start Date End Date Apolinar Herrera DO [address] [address] PCP - General Family Medicine 03/27/18 documented as of this encounter
--- OUTSIDE RECORDS SUMMARY | 2023-09-21 02:10 | External Medical Summary | Summary of Care ---
Author Name Unknown Organization [facility] Address [address] [place] [address] Phone [phone] Care Team Providers Care Emergency Planner Name Role Phone Apolinar Herrera DO Primary Care Provider Encounter Details Date Type Department Care Team (Late st Contact Info) Description 07/30/2023 Population Health External Data Unspecified Department Allergies [...] as of this encounter (statuses as of 07/30/2023) Medications Medication Sig Dispensed Refills Start Date [...] 1000 mL 11 09/13/2022 09/11/2023 Active Nystatin 819822 UNIT/GM External Cream Apply topically to affected [...] as of this encounter (statuses as of 07/30/2023) Active Problems Problem Noted Date Diagnosed Date [...] as of this encounter (statuses as of 07/30/2023) Resolved Problems Problem Noted Date Diagnosed Date [...] as of this encounter (statuses as of 07/30/2023) Immunizations Name Administration Dates Next Due COVID-19 mRNA, LNP-s, No Pre serve, 2-Dose Series (Pfizer) 07/11/2021,12/23/2020,12/02/2020 Covid-19, Mrna, Lnp-s, Pf, B ivalent, 30 Mcg, IM, 12 yrs and above ([employer]) 07/24/2022 Pneumococcal Conjugate Vacci ne, 20-valent ([id number]) 12/28/2022 Pneumococcal Polysaccharide PPV23 (Pneumovax) 12/12/2021,10/22/2016 SEASONAL [...] Department Care Team (Latest Contact Info) Description 08/02/2023 10:00 AM EST Office Visit Family [facility] [address] [place] [address] June Maria CRNP [address] [place] [address] 08/05/2023 12:00 PM EST Hospital Encounter Interventional Radiology [facility], [address] [address] 1st Floor [address] [facility] [id number] 08/12/2023 12:00 PM EST Office Visit [facility] [address] [place] [address] Apolinar Herrera DO [address] [place] [address] 08/14/2023 3:30 PM EST Office Visit General Internal Medicine, [facility] [address] [facility] [place] [address] Dorothy Tran MD [address] [place] [address] 08/15/2023 3:30 PM EST Office Visit Urology, [place] [address] [facility] [place] [address] Kyle Stubbs PA-C [address] [place] [address] 08/28/2023 12:54 PM EST Hospital Encounter OR [facility], OPERATING ROOM [facility], [facility] [address] [place] [facility] [address] Joslyn Gonsalez MD [address] [facility] [place] [address] 08/28/2023 12:54 PM EST - 08/28/2023 4:57 PM EST Surgery OR [facility], OPERATING ROOM [facility], [facility] [address] [facility] [place] [address] Joslyn Gonsalez MD [address] [place] [address] PERCUTANEOUS NEPHROSTOLITHOTOMY UP TO 2CM 10/03/2023 10:00 AM EST Office Visit Dermatology, [address] [address] Mraian Álvarez PA-C [address] [place] [address] [place] [address] 10/11/2023 12:45 PM EST Telemedicine General Surgery, [address] [address] Neno Crum MD [address] [place] [address] 10/15/2023 11:30 AM EST Office Visit Allergy/Immunolog y [facility] [address] [place] [address] Kateryna Judge PA-C [address] [place] [address] 12/06/2023 10:45 AM EDT Office Visit Urology, [facility] [address] [facility] [place] [address] Peterson Graves MD 27 [facility] [address] [address] Scheduled Procedures Name Priority Associated Diagnoses [...] this encounter Medical Devices Implanted Type Area Tile Installer Device Identifier Shelf Expiration Date Model / Serial / Lot Vitamesh Square 30cm X 30cm - [id number] Implanted:Qty : 1 on 04/21/2015 by Neno Crum MD at OR [facility] N/A: Abdomen [employer] 01/07/2020 [id number] / / [id number] Mesh Capsure Fixation 30 - [id number] Implanted:Qty : 1 on 05/15/2022 by Neno Crum MD at OR [facility] CR BARD : DAVOL 08/06/2022 [id number] / / Cath Pwr Picc Solo Inj 4f - [id number] Implanted:Qty : 1 on 07/04/2023 at [facility] CR BARD : [employer] [id number] 11/06/2024 [id number] / / [id number] documented as of this encounter Advance Directives [...] were consensually agreed upon. Care Teams Emergency Planner Relationship Specialty Start Date End Date Apolinar Herrera DO [address] [place] [address] PCP - General Family Medicine 03/27/18 documented as of this encounter
--- OUTSIDE RECORDS SUMMARY | 2023-09-21 02:10 | External Medical Summary | Summary of Care ---
Author Name Unknown Organization [facility] Address [address] [place] [address] Phone [phone] Care Team Providers Care Handle Sewer Name Role Phone Apolinar Herrera DO Primary Care Provider Reason for Visit * Reason Onset Date Comments [facility]: Screening 08/02/2023 Encounter Details Date Type Department Care Team (Late st Contact Info) Description 08/02/2023 Telephone [facility], [facility] [address] [facility] [place] [address] [facility], Nurse [facility] [address] [facility] [place] [address] [facility]: Screening Allergies Active Allergy Reactions Criticality Noted Date [...] as of this encounter (statuses as of 08/02/2023) Medications Medication Sig Dispensed Refills Start Date [...] 1000 mL 11 09/13/2022 09/11/2023 Active Nystatin 774641 UNIT/GM External Cream Apply topically to affected [...] as of this encounter (statuses as of 08/02/2023) Active Problems Problem Noted Date Diagnosed Date [...] as of this encounter (statuses as of 08/02/2023) Resolved Problems Problem Noted Date Diagnosed Date [...] as of this encounter (statuses as of 08/02/2023) Immunizations Name Administration Dates Next Due COVID-19 mRNA, LNP-s, No Pre serve, 2-Dose Series ([employer]) 07/11/2021,12/23/2020,12/02/2020 Covid-19, Mrna, Lnp-s, Pf, B ivalent, 30 Mcg, IM, 12 yrs and above (Pfizer) 07/24/2022 Pneumococcal Conjugate Vacci ne, 20-valent ([id number]) 12/28/2022 Pneumococcal Polysaccharide PPV23 (Pneumovax) 12/12/2021,10/22/2016 SEASONAL [...] encounter Miscellaneous Notes * Telephone Encounter - Romelia Felix LPN - 08/02/2023 12:52 PM EST Vernon Sommer was referred as a potential candidate for enrollment for [facility]. A review of this chart was completed and: Vernon does not meet criteria for enrollment into [facility]. Referral Source: [facility] Criteria for Ineligibility: Not Located in Service Area Referring care team was notified via : [employer] communication Pt is located in [facility] service area Referral elevated to [facility] leadership Pt does not meet criteria for [facility] services pre [facility] leadership OPCM made aware documented in this encounter Plan of Treatment Upcoming Encounters Date Type Department Care Team (Latest Contact Info) Description 08/05/2023 12:00 PM EST Hospital Encounter Interventional Radiology [facility], [address] 1st Floor [address] [facility] [place] [address] 08/12/2023 12:00 PM EST Office Visit [facility] [address] [facility] [place] [address] Apolinar Herrera DO [address] [place] [address] 08/14/2023 3:30 PM EST Office Visit General Internal Medicine, [facility] [address] [facility] [place] [address] Dorothy Tran MD [address] [place] [facility] [place] [address] 08/15/2023 3:30 PM EST Office Visit Urology, [place] [address] [facility] [place] [address] Kyle Stubbs PA-C [address] [facility] [place] [id number] 08/28/2023 12:54 PM EST Hospital Encounter OR [facility], OPERATING ROOM [facility], [facility] [address] [place] [facility] [place] [address] Joslyn Gonsalez MD [address] [place] [address] 08/28/2023 12:54 PM EST - 08/28/2023 4:57 PM EST Surgery OR [facility], OPERATING ROOM [facility], [facility] [address] [place] [address] Joslyn Gonsalez MD [address] [place], [place] [phone] PERCUTANEOUS NEPHROSTOLITHOTOMY UP TO 2CM 10/03/2023 10:00 AM EST Office Visit Dermatology[address] [address] Marian Álvarez PADarlene [address] [place] [address] [place] [address] 10/11/2023 12:45 PM EST Telemedicine General Surgery, [address] [address] Neno Crum MD [address] [place], [place] [address] 10/15/2023 11:30 AM EST Office Visit Allergy/Immunolog y [facility] [place] [address] [place] [address] Kateryna Judge PADarlene [address] [place] [address] 12/06/2023 10:45 AM EDT Office Visit U[facility], [facility] [address] [facility] [place] [address] Peterson Graves MD 27 [facility] [address] [place] [address] Scheduled Procedures Name Priority Associated Diagnoses Date/Ti [...] this encounter Medical Devices Implanted Type Area Capacitor Inspector Device Identifier Shelf Expiration Date Model / Serial / Lot [facility] [place] [address] 30cm X 30cm - [id number] Implanted:Qty : 1 on 04/21/2015 by Neno Crum MD at OR [facility] N/A: Abdomen [employer] 01/07/2020 [id number] / / [id number] Mesh Capsure Fixation 30 - [id number] Implanted:Qty : 1 on 05/15/2022 by Neno Crum MD at [facility] CR BARD : DAVOL 08/06/2022 [id number] / / Cath Pwr Picc Solo Inj 4f - [id number] Implanted:Qty : 1 on 07/04/2023 at [facility] CR BARD : [employer] [id number] 11/06/2024 [id number] / / [id number] documented as of this encounter Advance Directives [...] and were consensually agreed upon. Care Teams Handle Sewer Relationship Specialty Start Date End Date Apolinar Herrera DO [address] [address] PCP - General Family Medicine 03/27/18 documented as of this encounter
--- OUTSIDE RECORDS SUMMARY | 2023-09-21 02:10 | External Medical Summary | Summary of Care ---
Author Name Unknown Organization [facility] Address [address] [place] [address] Phone [phone] Care Team Providers Care Campground Attendant Name Role Phone Apolinar Herrera DO Primary Care Provider Reason for Referral * Precert (Within 10 days (routine)) - Pending Review Specialty Diagnoses / Procedures Referred By Contac t Referred To Contact Radiology Diagnoses Hydronephrosis with renal and ureteral calculus obstruction Procedures IR GENITORINARY NEPHRO/CYSTO/URETERAL Aziza Ramirez MD [address] [place] [address] Referral ID Status Reason Start Date Expiration Date V isits Requested Visits Authorized [id number] Pending Review 09/17/2023 999 999 Reason for Visit * Precert (Within 10 days (routine)) - Authorized Specialty Diagnoses / Procedures Referred By Contac t Referred To Contact Radiology Diagnoses Renal calculi Hydronephrosis with renal and ureteral calculus obstruction Procedures IR GENITORINARY NEPHRO/CYSTO/URETERAL MO EXCHANGE NEPHROSTOMY CATHETER PRQ W/IMG GID RS&I Angelo Almazan MD [address] [place] [address] Referral ID Status Reason Start Date Expiration Date V isits Requested Visits Authorized [id number] Authorized Precert 09/26/2023 04/13/2026 999 [id number] Encounter Details Date Type Department Care Team (Latest Contact Info) Description 08/08/2023 11:33 AM EST - 08/08/2023 2:57 PM EST Hospital Encounter Radiology Waiting Room [facility] [place] [address] [place] [address] Uday Davenport MD [address] [place] [address] Arrived Discharge Disposition: Home - Self Care Allergies [...] as of this encounter (statuses as of 08/09/2023) Medications Medication Sig Dispensed Refills Start Date [...] 1000 mL 11 09/13/2022 09/11/2023 Active Nystatin 982323 UNIT/GM External Cream Apply topically to affected [...] :Pressure injury of right ischium, stage 4 ([facility]) Apply topically to affected area daily. 473 [...] as of this encounter (statuses as of 08/09/2023) Active Problems Problem Noted Date Diagnosed Date Ventral hernia 05/16/2022 Medical home patient encounter 05/16/2022 Food insecurity 05/22/2021 Overview: Per [facility] Protocol Renal calculi 03/24/2020 Pressure ulcer [...] as of this encounter (statuses as of 08/09/2023) Resolved Problems Problem Noted Date Diagnosed Date [...] as of this encounter (statuses as of 08/09/2023) Immunizations Name Administration Dates Next Due COVID-19 mRNA, LNP-s, No Pre serve, 2-Dose Series (Pfizer) 07/11/2021,12/23/2020,12/02/2020 Covid-19, Mrna, Lnp-s, Pf, B ivalent, 30 Mcg, IM, 12 yrs and above (Pfizer) 07/24/2022 Pneumococcal Conjugate Vacci ne, 20-valent ([id number]) 12/28/2022 Pneumococcal Polysaccharide PPV23 (Pneumovax) 12/12/2021,10/22/2016 SEASONAL [...] or approximately 6 weeks. quit in early 1970's Alcohol Use Standard Drinks/Week Comments Yes 0 [...] Sign Reading Time Taken Comments Blood Pressure 131/67 08/08/2023 2:30 PM EST Pulse 99 08/08/2023 2:30 PM EST Temperature 37.1 C (98.8 F) 08/08/2023 1:36 PM ES T Respiratory Rate 15 08/08/2023 2:30 PM EST Oxygen Saturation 100% 08/08/2023 2:30 PM EST Inhaled Oxygen Concentration - - [...] Discharge Instructions * Discharge Instr - AVS* Aziza Ramirez MD - 08/08/2023 12:47 PM EST Discharge Date: 08/08/2023 Provider: Dr. Angelo Almazan If you are experiencing any problems related to your procedure, please contact Interventional Radiology at [phone] during normal business hours: Saturday - Saturday, 8:00 am - 4:00 pm. If a problem occurs outside of normal business hours, please call the hospital rotor casting machine operator at [phone] and ask for the Interventional Radiologist air traffic controller center. Contact scheduling for Interventional Radiology at [phone] during normal business hours: Saturday - Saturday, 8:00 am - 4:00 pm. The information below provides you with the [...] flushes, we can call the prescription into [facility] if no one close to you [...] homicidal, please call the crisis hotline at [phone] ([phone]). Driving: You may resume driving in 24 hrs . Diet: You may resume your current diet as tolerated. Return to work or school: You may return to school or work 24 hours after the procedure, unless otherwise instructed by the physician. documented in this encounter Nursing Notes * Jocelyn Gloria RN - 08/08/2023 2:57 PM EST DISCHARGE - POST INTERVENTIONAL RADIOLOGY PROCEDURE Patient meets discharge criteria for Interventional Radiology. Vital signs stable. Dressing clean, dry, and intact. IV site removed. Patient awake and oriented to pre procedure baseline. Discharge instructions given, no questions at this time. Patient tolerating liquids, with no nausea/vomiting. All belongings sent with patient. Discharged to home. Vital Signs: BP: 131/67 (08/08/23 1430) Temp: 37.1 C (98.8 F) (08/08/23 1336) Pulse: 99 (08/08/23 1430) Resp: 15 (08/08/23 1430) SpO2: 100 % (08/08/23 1430) Neurological: Arnold Coma Scale Eyes Open: Spontaneous (08/08/23 1336) Best Verbal Response: Verbally appropriate for age (08/08/23 1336) Best Motor Response: Obeys commands appropriate for age (08/08/23 1336) Coma Score: 15 (08/08/23 1336) Activity: Four Extremities LOC: Fully Awake or Pre-Anesthetic Level of Consciousness BP: Less than (+/-) 20% Resp: Deep Breathe and Cough Freely (08/08 1344) Respiratory: Pain Assessment Flowsheet Row Most Recent Value Pain Assessment Scale [facility] Adult Scale 0-10 Pain Score 0 (no pain) * Kirstin Thomson RN - 08/08/2023 1:01 PM EST asbestos abatement technician note Name: Vernon Sommer Date: 08/08/2023 Time: 1255 Procedure: Left Percutaneous Nephrostomy Tube Exchange Patient ID band checked using two identifiers. Patient placed prone on procedure table with comfortmeasures intact and safety strap in place. Hemodynamic monitoring placed and initiated. Patient denies any current complaints at current time. RT staff prepares and preps patient for procedure. 1:07 PM Patient prepped and ready. Procedure by physician. 1:11 PM Timeout performed by Dr. Angelo Almazan . Correct catheter size verbalized and verified during timeout. 1:12 PM Procedure started by Dr Aziza Ramirez , and scrubbed RT Marian. Catheter injected with contrast. Images obtained. 1:13 PM Guidewire inserted. Images obtained. 1:19 PM Existing Left PCN catheter removed. 1:20 PM Changers Multipurpose Drainage Catheter Ultrathane 10.2 Fr. x 25 cm LOT [id number] EXP 06/27/2026 placed. Images obtained. 1:21 PM Numbing left flank site with 1% buffered lidocaine. Sutures placed. Procedure complete. 1:24 PM Area cleaned. StatLock Securement Device applied. Catheter placed to gravity bag. Patient tolerated procedure well without complications. Drainage bag(s) attached to patient's leg(s) prior to leaving procedure room. All wires, catheters, sheaths and other devices have been inspected prior to the procedure for damage. This has been confirmed by the scrubbed RT and the operating physician. All items not intended to remain in the patient have been inspected, accounted for and have been removed from the patient atthe end of the procedure. This has been confirmed by the scrubbed RT and the operating physician. Patient did not receive conscious sedation for their procedure. Total medications given Antibiotic: 2gm Cefepime IV 1% buffered lidocaine: 9 mL Please see doctor's operative note for additional details. documented in this encounter Miscellaneous Notes * Communication - Maggy Dennis CRNP - 08/08/2023 1:38 PM EST Brief Interventional Radiology Progress Note Reached out to Dr. Gonsalez at 0810 regarding OR plans (if PCN was needed vs convert to PCNU) as there was discussion on whether or not pt would be a candidate to undergo anesthesia given commodities, but he is still scheduled for the OR on 08/28. Dr. Gonsalez did responds that she would have to look lateras she was starting a case. Unfortunately, did not hear back from Dr. Gonsalez and pt had arrived. Decision was made to proceed with routine PCN exchange. Please contact IR with any questions or concerns. documented in this encounter Plan of Treatment Upcoming Encounters Date Type Department Care Team (Latest Contact Info) Description 08/12/2023 12:00 PM EST Office Visit Family [facility] [address] [facility] [place] [address] Apolinar Herrera DO [facility] [address] 08/14/2023 3:30 PM EST Office Visit General Internal Medicine, [facility] [address] [place], [place] [id number] Dorothy Tran MD [address] [facility] [place] [id number] 08/15/2023 3:30 PM EST Office Visit Urology, [place] [address] [facility] [place], [place] [id number] Kyle Stubbs PA-C [address] [place] [address] 08/28/2023 12:54 PM EST Hospital Encounter OR [facility] [place], OPERATING ROOM [facility] [place] [address] [place] [address] Joslyn Gonsalez MD [address] [facility] [place] [address] 08/28/2023 12:54 PM EST - 08/28/2023 4:57 PM EST Surgery OR [facility] [place], OPERATING ROOM [facility] [place] [facility] [address] [facility] [place] [address] Joslyn Gonsalez MD [address] [place] [address] PERCUTANEOUS NEPHROSTOLITHOTOMY UP TO 2CM 09/19/2023 1:00 PM EST Appointment Interventional Radiology [facility] [place], [place] [facility] 1st Floor [address] [place] [address] 10/03/2023 10:00 AM EST Office Visit Dermatology[address] [address] Marian Álvarez PA-C [address] [place] [address] [place] [address] 10/11/2023 12:45 PM EST Telemedicine General Surgery, [address], [place] [id number] Neno Crum MD [address] [facility] [place] [address] 10/15/2023 11:30 AM EST Office Visit Allergy/Immunolog y [place] Devin Gonsalez [address] [place] [address] Kateryna Judge PA-C [address] [place] [address] 12/06/2023 10:45 AM EDT Office Visit Urology, [facility] [address] [facility] [place] [address] Peterson Graves MD 27 [facility] [address] [place] [address] Pending Results Name Type Priority Associated Diagnoses Date /Time IR GENITORINARY NEPHRO/CYSTO/URETERAL Medical Imaging Routine Renal calculi Hydronephrosis with renal and ureteral calculus obstruction 08/08/2023 1:25 PM EST Scheduled Orders Name Type Priority Associated Diagnoses Orde r Schedule IR GENITORINARY NEPHRO/CYSTO/URETERAL Medical Imaging Routine Hydronephrosis with renal and ureteral calculus obstruction Expected: 09/17/2023, Expires: 09/07/2024 Scheduled Procedures Name Priority Associated Diagnoses Date/Ti [...] Additional history exists AAA Screening Completed 06/04/2023, 08/0 04/2022, 07/10/2021, Additional history exists Influenza Vaccine [...] this encounter Medical Devices Implanted Type Area Retail Stock Clerk Device Identifier Shelf Expiration Date Model / Serial / Lot Markamesh Square 30cm X 30cm - [id number] Implanted:Qty : 1 on 04/21/2015 by Neno Crum MD at OR [facility] [place] N/A: Abdomen [employer] 01/07/2020 [id number] / / [id number] Mesh Capsure Fixation 30 - [id number] Implanted:Qty : 1 on 05/15/2022 by Neno Crum MD at OR [facility] [place] CR BARD : DAVOL 08/06/2022 [id number] / / Cath Pwr Picc Solo Inj 4f - [id number] Implanted:Qty : 1 on 07/04/2023 at [facility] CR BARD : [employer] [id number] 11/06/2024 [id number] / / [id number] documented as of this encounter Procedures Procedure Name Priority Date/Time Associated Diagnosis Comments IR GENITORINARY NEPHRO/CYSTO/URETE RAL Routine 08/08/2023 1:25 PM EST Renal calculi Hydronephrosis with renal and ureteral calculus obstruction Procedure Note - Angelo Almazan MD / Aziza Ramirez MD - 08/08/2023 1:25 PM ESTThis note is in progress. PROCEDURE: Left nephrostomy catheter check and exchange. INDICATION: 68-year-old male with history of paraplegia 2/2 spina bifida,neurogenic bladder s/p suprapubic catheter, colostomy c/b parastomalhernia, chronic sacral decubitus ulcer, recent history of ureteralcalculi, failed attempt at urologic intervention of ureteral stentplacement, now status post IR PCN placement on 06/25/2023. Today patientpresents for catheter check and exchange for preventative maintenance.Reportedly patient lives alone and has no help at home, patient statesthat he cannot flush the catheter as he cannot reach it. ATTENDING (OPERATING PHYSICIAN): Angelo Almazan MD., CHEYANNE. SCRUBBED RESIDENT (OPERATING PHYSICIAN): Aziza Ramirez MD. SUPPORTING PROVIDER (WILDLAND FIRE FIGHTER): RT. Harpreet CONSENT: After a detailed discussion of the [...] position on thefluoroscopy table. The flank and nephrostomy catheter was prepped anddraped in usual sterile fashion. Left PCN check and exchange: Preliminary fluoroscopic images demonstrate anephrostomy catheter overlying the left flank. A small amount of contrastwas injected but due to clogging of the catheter secondary to debris isthe collecting system was not opacified. Using the back end of theGlidewire the obstruction was bypassed. Again a small amount of contrastwas injected through the catheter which demonstrated opacification of thecollecting system. The locking mechanism of the catheter was then removed,and a wire was advanced through the catheter and coiled within thecollecting system. The catheter was then removed over the wire andexchanged for a new 10.2 Fr 25 cm catheter. A small amount of contrast wasinjected through the new catheter to confirm its position. The catheterwas secured to the skin and connected to a gravity drainage bag. The procedure was performed under the personal supervision of who was present for the entire procedure. FINDINGS: Left PCN check and exchange: Preliminary fluoroscopic evaluationdemonstrates a pigtail catheter overlying the left flank. Antegradenephrostogram through the catheter demonstrates opacification of thecollecting system. Post exchange imaging confirms catheter locking loopin the renal pelvis. Filling defects in the ureter on antegrade urogram consistent with knownureteric calculi. IMPRESSION IMPRESSION: Successful left nephrostomy catheter check and exchange. PLAN: According to the documentation by urologist, the is plan forsurgical intervention. If no intervention is performed the should returnto IR for routine maintenance catheter check and exchange in 4-6 weeksgiven extensive crusting/sedimentation. documented in this encounter Visit Diagnoses Diagnosis Renal calculi Calculus of kidney Hydronephrosis with renal and ureteral calculus obstruction Hydronephrosis Renal calculi Calculus of kidney documented in this encounter Administered Medications Inactive Administered Medications - up to 3 most recent administrations Medication Order MAR Action Action Date Dose Rate Site buffered lidocaine 1 % inj Intradermal, ONCE PRN INTRA PROCEDURE, Starting on Laura 08/08/23 at 1329, Until Laura 08/08/23 at 1329, Intra-Op Given 08/08/2023 1:29 PM EST 9 mL cefepime in dextrose premix ivpb 2 g 2 g, IV Piggyback, ONCE, 1 dose, On Laura 08/08/23 at 1230, Administer over 30 Minutes New Bag 08/08/2023 12:10 PM EST 2 g 100 mL/hr Ioversol (Optiray 350) 74 % inj 100 mL 100 mL, Intravenous, ONCE, On Laura 08/08/23 at 1400, For 1 dose Given 08/08/2023 2:00 PM EST 20 mL documented in this encounter Active and Recently Administered Medications Times are shown in EST. Scheduled Medication Order 08/06/2023 08/07/2023 08/08/2023 cefepime in dextrose premix ivpb 2 g (COMPLETED) 2 g, IV Piggyback, ONCE, 1 dose, On Laura 08/08/23 at 1230, Administer over 30 Minutes 1210 (New Bag - Prov ider: Maggy Galvan RN) Ioversol (Optiray 350) 74 % inj 100 mL (COMPLETED) 100 mL, Intravenous, ONCE, On Laura 08/08/23 at 1400, For 1 dose 1400 (Given - Provid er: Brad Masters, RT) PRN Medication Order 08/06/2023 08/07/2023 08/08/2023 buffered lidocaine 1 % inj (COMPLETED) Intradermal, ONCE PRN INTRA PROCEDURE, Starting on Laura 08/08/23 at 1329, Until Laura 08/08/23 at 1329, Intra-Op 1329 (Given - Provid er: Aziza Ramirez MD - Comment: for IR procedure) documented in this encounter Advance Directives Latest [...] and were consensually agreed upon. Care Teams Campground Attendant Relationship Specialty Start Date End Date Apolinar Herrera DO [address] [place] [address] PCP - General Family Medicine 03/27/18 documented as of this encounter
--- OUTSIDE RECORDS SUMMARY | 2023-09-21 02:10 | External Medical Summary | Summary of Care ---
Author Name Unknown Organization [facility] Address [address] [place] [address] Phone [phone] Care Team Providers Care Dry Cleaner Hand Name Role Phone Apolinar Herrera DO Primary Care Provider Encounter Details Date Type Department Care Team (Late st Contact Info) Description 08/09/2023 Telephone Urology Danica Holman [address] [place] [address] [place] [address] Peterson Graves MD [address] [place] [address] [place] [address] Allergies Active Allergy Reactions Criticality Noted Date [...] 1000 mL 11 09/13/2022 09/11/2023 Active Nystatin 022497 UNIT/GM External Cream Apply topically to affected [...] mRNA, LNP-s, No Pre serve, 2-Dose Series ([employer]) 07/11/2021,12/23/2020,12/02/2020 Covid-19, Mrna, Lnp-s, Pf, B ivalent, 30 Mcg, IM, 12 yrs and above ([employer]) 07/24/2022 Pneumococcal Conjugate Vacci ne, 20-valent ([id number]) 12/28/2022 Pneumococcal Polysaccharide PPV23 (Pneumovax) 12/12/2021,10/22/2016 SEASONAL [...] Description 08/12/2023 12:00 PM EST Office Visit [facility] [address] [place] [address] Apolinar Herrera DO [address] [place] [address] 08/14/2023 3:30 PM EST Office Visit General Internal Medicine, [facility] [address] [place] [address] Dorothy Tran MD [address] [place] [address] 08/15/2023 3:30 PM EST Office Visit Urology, [place] [address], [place] [id number] Kyle Stubbs PA-C [address] [place] [address] 08/28/2023 12:54 PM EST Hospital Encounter OR [facility] [place], OPERATING RO[facility] [address] [facility] [place] [address] Joslyn Gonsalez MD [address] [place] [address] 08/28/2023 12:54 PM EST - 08/28/2023 4:57 PM EST Surgery OR [facility] [place], OPERATING RO[facility] [address] [facility] [place] [address] Joslyn Gonsalez MD [address] [place] [address] PERCUTANEOUS NEPHROSTOLITHOTOMY UP TO 2CM 09/19/2023 1:00 PM EST Appointment Interventional Radiology [facility], [facility] 1st Floor [address] [facility] [place] [address] 10/03/2023 10:00 AM EST Office Visit Dermatology[address] [place] [address] Marian Álvarez PA-C [address] [place] [address] [place] [address] 10/11/2023 12:45 PM EST Telemedicine General Surgery, [address] [place] [address] Neno Crum MD [address] [facility] [address] 10/15/2023 11:30 AM EST Office Visit Allergy/Immunolog y [facility] [address] [place] [address] Kateryna Judge PA-C [address] [place] [address] 12/04/2023 10:45 AM EDT Office Visit Urology, [facility] 132 [facility] [place] [address] Peterson Graves MD 27 [facility] [address] [place] [id number] Scheduled Procedures Name Priority Associated Diagnoses Date/Ti me PERCUTANEOUS NEPHROSTOLITHOT KAROLINA UP TO 2CM Renal calculi 08/28/2023 12:54 PM EST Health Maintenance Due Date Last Done Comments Fecal Occult Blood Test 1998 Sigmoidoscopy 1998 COVID-19 Vaccine (2022- season) 2023 07/24/2022, 07/24/2022, 07/11/2021, Additional history [...] this encounter Medical Devices Implanted Type Area Car Supervisor Device Identifier Shelf Expiration Date Model / Serial / Lot Vitamesh Square 30cm X 30cm - [id number] Implanted:Qty : 1 on 04/21/2015 by Neno Crum MD at OR [facility] N/A: Abdomen [employer] 01/07/2020 [id number] / / [id number] Mesh Capsure Fixation 30 - [id number] Implanted:Qty : 1 on 05/15/2022 by Neno Crum MD at OR [facility] CR BARD : DAVOL 08/06/2022 [id number] / / Cath Pwr Picc Solo Inj 4f - [id number] Implanted:Qty : 1 on 07/04/2023 at [facility] CR BARD : [employer] [id number] 11/06/2024 [id number] / / [id number] documented as of this encounter Advance Directives [...] 1:23 PM 11/08/2021 8:45 PM This or mray reflects the patients wishes and were consensually agreed upon. Full Code 11/08/2021 10:31 AM 11/08/2021 1:23 PM This o rder reflects the patients wishes and were consensually agreed upon. Care Teams Dry Cleaner Hand Relationship Specialty Start Date End Date Apolinar Herrera DO [address] [place] [address] PCP - General Family Medicine 03/27/18 documented as of this encounter
[2023-09-21 02:18] LABS: Magnesium 1.6 mg/dl (1.7-2.4)
[2023-09-21] MEDS ORDERED: POTASSIUM CHLORIDE 10 MEQ TABCR PO STA (02:25)
[2023-09-21] MEDS ORDERED: MAGNESIUM SULFATE / D5W 1 GM/100 ML BAG IV STA (02:31)
[2023-09-21] MEDS ORDERED: POTASSIUM CHLORIDE PWD 20 MEQ PACK PO STA ×2 (03:24→05:18)
[2023-09-21] MEDS ORDERED: KETOROLAC TROMETHAMINE 15 MG/ML VIAL IV STA (03:31)
[2023-09-21] MEDS: POTASSIUM CHLORIDE / WTR 10 MEQ/100 ML PLCT IV SCH ×2 (04:20→06:21)
[2023-09-21 06:16] LABS: Appearance Urine Turbid (Clear); Bacteria Urine Automated 4+ (Negative); Bilirubin Urine Negative (Negative); Blood Urine 1+ (Negative); Color Urine Yellow; Epithelial Cell Urine Auto >30 /lpf (0-5); Glucose Urine UA Negative (Negative); Ketones Urine 1+ (Negative); Leukocyte Esterase Urine 2+ (Negative); Nitrite Urine Negative (Negative); RBC Urine Automated 0-4 /hpf (0-4); Specific Gravity Urine 1.018 (1.000-1.030); Urobilinogen Urine Negative (Negative); WBC Urine Automated >30 /hpf (0-5)
[2023-09-21 06:26] LABS: Protein Urine 2+ (Negative)
[2023-09-21] MEDS ORDERED: CEFEPIME 2,000 MG/20 ML VIAL IV STA (06:27)
--- NOTE | 2023-09-21 06:27 | History & Physical Report ---
Date of Service September 21, 2023 Assessment & Plan (1) Complicated UTI (urinary tract infection): Plan: recurrent UTIs secondary to neurogenic bladder secondary to spina bifida status post suprapubic catheter placement/hx staghorn calculi as per records/left hyd ronephrosis status post PCNL, Failed outpatient treatment Patient not septic. Hypokalemia secondary to transient diarrhea illness history of colostomy GERD, stable on PPI chronic anemia, hemoglobin at baseline chronic decubitus wound, worsening as per patient anxiety/mood disorder, at baseline past tobacco abuse History of [facility] Follow urine CS, Cefepime Replace electrolytes Wound care nurse consult Re: Decubitus wound DVT prophylaxis per Lovenox subcu Full code Patient brother requesting updates providers. Mr. Juan Sommer, contact #[phone]. Text document was generated using [employer] voice recognition software. It may contain grammatical or spelling errors. Kindly contact undersigned for clarification of any documentation item in question. History of Present Illness Chief Complaint: Clogged suprapubic catheter Primary Care Provider: Apolinar Herrera DO History obtained from patient, family, and records. Medical history significant for paraplegia secondary to spina bifida, recurrent UTIs secondary to neurogenic bladder status post suprapubic catheter placement, staghorn calculi as per records, left hydronephrosis status post PCNL, hx VRE, history of colostomy, GERD, chronic anemia (baseline hemoglobin of 12 ), chronic decubitus wound, anxiety/mood disorder, past tobacco abuse. Last [facility] confinement June 2023 for obstructive uropathy/left-sided hydronephrosis, possible urosepsis status post suprapubic catheter change, cystoscopy and extraction of bladder stones. Proteus on urine CS Left ureter could not be accessed during confinement. Patient transferred [place] [facility] [place] nephrostomy tube placement. Subsequent left PCNL tube placement. Outpatient IR guided left nephrostomy catheter check and exchange at [facility] 2 weeks ago. Prospective kidney stone removal contemplated by [facility] November 2023. Patient currently on cefdinir course prescribed by urologist for outpatient urine CS growing Proteus. The last couple of days, patient suprapubic catheter noted to be clogged and not draining enough urine. No unusual pain. No fever, no chills. Patient denies chest pain, SOB. Transient diarrhea symptoms. Patient brought to ER by brother for evaluation. Suprapubic catheter now draining after being flushed at the ER. Medical History as above Surgical History : Circumcision, colostomy to prevent pressure sores, lithotripsy, cystoscopy, myringotomy, ex lap, toe amputation, buttock skin flap surgery, hernia repair, cystostomy tube placement Family History : Heart disease, Paget's disease, prostate cancer Personal/Social history : Past tobacco abuse, occasional EtOH intake, disabled Allergies Allergy/AdvReac Type Severity Reaction Status Date / Time iodine Allergy Intermediate A Verified 08/26/23 09:56 TEEN-SKIN CONTACT BURNED THE SKIN-FELT LIKE ON FIRE adhesive Allergy Mild ADHESIVE Verified 08/26/23 09:56 TAPE RIPS SKIN APART clindamycin Allergy Mild RASH Verified 08/26/23 09:56 Iodinated Contrast Media Allergy Mild NAUSEA Verified 08/26/23 09:56 Penicillins Allergy Mild HIVES-ITCHING,HAS Verified 08/26/23 09:56 TOLERATED ANCEF IN PAST pineapple Allergy Mild "TONGUE Verified 08/26/23 09:56 WALKER AND CRACKS" vancomycin Allergy Mild hives Verified 08/26/23 09:56 aspirin AdvReac Mild GI Verified 08/26/23 09:56 SENSITIVITY Home Medications Medication Instructions Recorded Confirmed Type azelastine 137 mcg (0.1 %) nasal 2 spray intranasal AMH 06/25/23 09/21/23 History spray aerosol magnesium oxide 400 mg PO QAM 06/25/23 09/21/23 History pantoprazole 40 mg tablet,delayed 40 mg PO DAILY 06/25/23 09/21/23 History release paroxetine HCl 10 mg tablet 20 mg PO DAILY 06/25/23 09/21/23 History cefdinir 300 mg capsule 300 mg PO AMHS 09/21/23 09/21/23 History fluticasone propionate 50 2 spray intranasal QA 09/21/23 09/21/23 History mcg/actuation nasal spray,suspension Past Med/Surg History Medical History Slow to wake up after anesthesia History of frequent urinary tract infections Environmental allergies Little catheter in place suprapubic catheter Chronic allergic rhinitis Hx of Clostridium difficile infection dx years ago Hx MRSA infection stool, dx years ago Hx of migraines History of palpitations hx holter monitoring>no findings; f/u PCP Stage IV pressure ulcer of buttock IBS (irritable bowel syndrome) Anxiety and depression HTN (hypertension) Seasonal allergies Schatzki's ring Wheelchair bound Decubitus ulcer CHRONIC; FOLLOWS W/ WOUND CLINIC- right groin area currently Chronic back pain Osteoarthritis Kidney stones Neurogenic bladder Colostomy in place Chronic gum disease Tinnitus RT EAR Hearing deficit RT EAR History of febrile seizure X 1; CHILDHOOD Deep vein thrombosis > 10 YEARS AGO - TREATED W/ BLOOD THINNERS - R/T IMMOBILITY Dysphagia Spina bifida SPINAL CLOSURE Paraplegia from the waist down-confined to wheelchair Surgical History History of suprapubic catheter History of esophagogastroduodenoscopy (EGD) History of sinus surgery History of surgery RT HIP WOUND DEBRIDEMENT W/ SKIN GRAFTING History of exploratory laparotomy History of incisional hernia repair X5 History of anesthesia reaction SLOW TO WAKE 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 History of cystoscopy W/ STONE EXTRACTION History of colonoscopy History of lithotripsy Status post myringotomy with insertion of tube History of tooth extraction History of esophageal dilatation Family History Other No family history of adverse response to anesthesia Social History Smoking Status: Former smoker Second Hand Exposure: No; Do You Dip or Chew Tobacco: No; Hx Alcohol Use: No Hx Substance Use: No Preferred Language: Nepali Communication Ability: Effective Drosophere Operator Required: No Beliefs That Will Affect Care: None marital status: Single Current Living Situation: Alone Current Living Situation Comment: 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 How many Children do You have: 0 Feels Safe at Home: Yes Assistive Devices: Glasses, Hospital Bed and Wheelchair Review of Systems Review of Systems: As per HPI, all other systems reviewed and negative Physical Exam Physical Exam: GENERAL: Comfortable, chronically ill, no respiratory distress SKIN: Pallor, warm HEENT: Pale palpebral conjunctivae, no ptosis, dry buccal mucosa NECK : Supple, no tenderness CHEST : CTA, no tenderness HEART : RRR, no obvious murmurs ABDOMEN: Some distention, suprapubic catheter and left-sided ostomy in place EXTREMITIES : Minimal LE swelling, no LE tenderness NEUROLOGIC : Coherent, no facial asymmetry, MMTS BUE 4/5, BLE 0 Results & Data Results & Data Vital Signs (Past 12 Hours) Vital Signs Temp Pulse Resp BP Pulse Ox O2 Del Method 09/21/23 04:44 84 09/21/23 02:00 73 16 115/58 L 99 Room Air 09/21/23 01:30 73 17 100 Room Air 09/21/23 01:14 99 Room Air 09/21/23 01:00 80 13 09/21/23 00:48 101 H 18 126/68 09/21/23 00:36 86 09/21/23 00:24 36.5 C 91 H 18 123/71 96 Room Air Laboratory Results Laboratory Results WBC 6.51 K/ul (4.8-10.8) 09/21/23 01:00 RBC 4.95 M/uL (4.70-6.10) 09/21/23 01:00 Hgb 12.0 g/dl (14.0-18.0) L 09/21/23 01:00 Hct 38.4 % (42.0-52.0) L 09/21/23 01:00 MCV 77.6 fL (80.0-100.0) L 09/21/23 01:00 MCH 24.2 pg (25.0-34.0) L 09/21/23 01:00 MCHC 31.3 g/dL (32.0-36.0) L 09/21/23 01:00 RDW Std Deviation 43.8 fL (36.4-46.3) 09/21/23 01:00 RDW Coeff of Sebastian 15.8 % (11.5-14.5) H 09/21/23 01:00 Plt Count 400 K/uL (130-400) 09/21/23 01:00 MPV 8.7 fL (9.4-12.4) L 09/21/23 01:00 Immature Gran % (Auto) 0.3 % 09/21/23 01:00 Neut % (Auto) 64.9 % 09/21/23 01:00 Lymph % (Auto) 19.0 % 09/21/23 01:00 [place] % (Auto) 10.0 % 09/21/23 01:00 Eos % (Auto) 5.5 % 09/21/23 01:00 Baso % (Auto) 0.3 % 09/21/23 01:00 Neut # (Auto) 4.22 K/uL (1.40-6.50) 09/21/23 01:00 Lymph # (Auto) 1.24 K/uL (1.20-3.40) 09/21/23 01:00 [place] # (Auto) 0.65 K/uL (0.11-0.59) H 09/21/23 01:00 Eos # (Auto) 0.36 K/uL (0.00-0.50) 09/21/23 01:00 Baso # (Auto) 0.02 K/uL (0.00-0.20) 09/21/23 01:00 Immature Gran # (Auto) 0.02 K/uL (0.01-0.20) 09/21/23 01:00 Sodium 137 mmol/L (136-145) 09/21/23 01:00 Potassium 2.8 mmol/L (3.5-5.1) L 09/21/23 01:00 Chloride 101 mmol/L (98-107) 09/21/23 01:00 Carbon Dioxide 28 mmol/L (21-32) 09/21/23 01:00 Anion Gap 8 (3-11) 09/21/23 01:00 BUN 14 mg/dl (6-23) 09/21/23 01:00 Creatinine 0.52 mg/dl (0.6-1.4) L 09/21/23 01:00 Est Cr Clr Drug Dosing Not Reportable 09/21/23 01:00 Est GFR ( Amer) 125.2 ml/min 09/21/23 01:00 Est GFR (Non-Af Amer) 108.0 ml/min 09/21/23 01:00 BUN/Creatinine Ratio 26.9 (10-20) H 09/21/23 01:00 Glucose 107 mg/dl (70-99(Fasting)) H 09/21/23 01:00 Lactate 1.6 mmol/L (0.4-2.0) 09/21/23 01:00 Calcium 9.2 mg/dl (8.6-10.3) 09/21/23 01:00 Magnesium 1.6 mg/dl (1.7-2.4) L 09/21/23 01:00 Procalcitonin 0.13 ng/ml (0-0.5) 09/21/23 01:00 Urine Color Yellow 09/21/23 06:07 Urine Appearance Turbid (Clear) A 09/21/23 06:07 Urine pH 8.0 (4.5-7.5) H 09/21/23 06:07 Ur Specific [place] 1.018 (1.000-1.030) 09/21/23 06:07 Urine Protein 2+ (Negative) H 09/21/23 06:07 Urine Glucose (UA) Negative (Negative) 09/21/23 06:07 Urine Ketones 1+ (Negative) H 09/21/23 06:07 Urine Blood 1+ (Negative) H 09/21/23 06:07 Urine Nitrite Negative (Negative) 09/21/23 06:07 Urine Bilirubin Negative (Negative) 09/21/23 06:07 Urine Urobilinogen Negative (Negative) 09/21/23 06:07 Ur Leukocyte Esterase 2+ (Negative) H 09/21/23 06:07 Urine WBC (Auto) Cancelled 09/21/23 01:10 Urine RBC (Auto) Cancelled 09/21/23 01:10 U Hyaline Cast (Auto) Cancelled 09/21/23 01:10 U Epithel Cells (Auto) Cancelled 09/21/23 01:10 Urine Bacteria (Auto) Cancelled 09/21/23 01:10 Ur Renal Epithelial Cell Cancelled 09/21/23 01:10 Urine Crystals Cancelled 09/21/23 01:10 Calcium Oxalate Crystal Cancelled 09/21/23 01:10 Uric Acid Crystals Cancelled 09/21/23 01:10 Triple Phos Crystals Cancelled 09/21/23 01:10 Other Crystals Cancelled 09/21/23 01:10 Amorphous Sediment Cancelled 09/21/23 01:10 Granular Casts Cancelled 09/21/23 01:10 Waxy Casts Cancelled 09/21/23 01:10 RBC Casts Cancelled 09/21/23 01:10 WBC Casts Cancelled 09/21/23 01:10 Other Casts Cancelled 09/21/23 01:10 Urine Mucus Cancelled 09/21/23 01:10 Urine Other Cancelled 09/21/23 01:10 Urine Trichomonas Cancelled 09/21/23 01:10 Urine Yeast Cancelled 09/21/23 01:10 Urine Sperm Cancelled 09/21/23 01:10 Ur Oval Fat Bodies Cancelled 09/21/23 01:10
[2023-09-21 06:28] LABS: Triple Phosphate Crystal Urine Present (None Prsent)
[2023-09-21 06:29] LABS: Amorphous Sediment Urine Present (None Prsent)
[2023-09-21] MEDS ORDERED: PROMETHAZINE HCL 6.25 MG in SODIUM CHLORIDE 0.9% 50 ML IV PRN (06:32)
[2023-09-21] MEDS ORDERED: KETOROLAC TROMETHAMINE 15 MG/ML VIAL IV PRN (06:32)
[2023-09-21] MEDS ORDERED: NSS + 20MEQ KCL 20 MEQ/1,000 ML BAG IV ONE (08:00)
[2023-09-21] MEDS ORDERED: ENOXAPARIN INJ 40 MG/0.4 ML SYR SQ SCH (09:00)
[2023-09-21] MEDS ORDERED: PANTOprazole 40 MG TAB PO SCH (10:01)
[2023-09-21 10:19] LABS: BUN Creatinine Ratio 23.9 (10-20); Calcium 8.2 mg/dl (8.6-10.3); Creatinine Clr Calc Pharmacy 125.1 ml/min; Est GFR (African American) 131.7 ml/min; Est GFR (Non-African American) 113.6 ml/min; Magnesium 1.9 mg/dl (1.7-2.4)
[2023-09-21] MEDS ORDERED: SODIUM CHLORIDE 0.65% NA SOLN 45 ML (OCEAN) PRN (12:40)
[2023-09-21] MEDS ORDERED: SODIUM CHLORIDE 0.65% NA SOLN 45 ML (OCEAN) ONE (12:44)
[2023-09-21] MEDS: FLUTICASONE PROPIONATE NA SPR 16 GM BTL SCH (12:54)
[2023-09-21] MEDS: AZELASTINE HCL 0.1% NASAL 200 SPRAYS/27,400 MCG BTL SCH ×2 (12:54→20:45)
[2023-09-21] MEDS: PARoxetine HCL 20 MG TAB PO SCH (13:35)
[2023-09-21] MEDS ORDERED: CEFEPIME 2,000 MG in SYRINGE 0 ML IV SCH (14:00)
[2023-09-21] MEDS: CEFEPIME 2,000 MG in SYRINGE 0 ML IV SCH (15:46)
[2023-09-21] MEDS: PHENAZOPYRIDINE HCL 100 MG TAB PO PRN (16:51)
[2023-09-21] MEDS ORDERED: POLYETHYLENE (MIRALAX) 17 GM PACK PO PRN (18:20)
[2023-09-21] MEDS ORDERED: PROMETHAZINE HCL 6.25 MG in SODIUM CHLORIDE 0.9% 50 ML IV STA (22:33)
[2023-09-21] MEDS ORDERED: PROMETHAZINE HCL 12.5 MG in SODIUM CHLORIDE 0.9% 50 ML IV STA (22:33)
[2023-09-22] MEDS: CEFEPIME 2,000 MG in SYRINGE 0 ML IV SCH ×3 (00:41→15:34)
--- NOTE | 2023-09-22 01:05 | Communication Note ---
Date of Service: September 22, 2023 Patient with overnight nausea, bilious emesis symptoms. Intermittent, crampy generalized abdominal pain as per patient. No hematemesis/coffee-ground emesis. Last BM 2 days ago. No black or bloody stools at home as per patient. CT abdomen pelvis: 1. Circumferential wall thickening in the gastric fundus with areas of mural air consistent with pneumatosis within same. There is a small amount of associated inflammatory change. Direct visual inspection is recommended for further evaluation. 2. Left-sided percutaneous nephrostomy tube with resolution of left- sided hydronephrosis. No interval change and the appearance to the multiple left renal calculi. AP Gastritis N.p.o. IV PPI GI consult re: abdominal pain, abnormal CT N.p.o. in anticipation of endoscopy. Will relay to AM provider.
[2023-09-22] MEDS ORDERED: DAPTOmycin 225 MG in SYRINGE 0 ML IV SCH (01:15)
[2023-09-22] MEDS ORDERED: METOCLOPRAMIDE HCL INJ 5 MG/ML 2 ML VIAL IV ONE (01:15)
[2023-09-22] MEDS ORDERED: SODIUM CHLORIDE 0.9% 1,000 ML IV ONE (01:15)
[2023-09-22] MEDS ORDERED: diphenhydrAMINE 50 MG/ML VIAL IV ONE (01:15)
[2023-09-22] MEDS ORDERED: methylPREDNISolone 40 MG in SYRINGE 0 ML IV ONE (01:15)
[2023-09-22] MEDS ORDERED: OPTIRAY 320 500ml IV ONE (02:13)
[2023-09-22 06:07] LABS: Hemoglobin 12.1 g/dl (14.0-18.0); Mean Corpuscular Hemoglobin 24.2 pg (25.0-34.0); Mean Corpuscular Volume 77.8 fL (80.0-100.0); Mean Platelet Volume 8.6 fL (9.4-12.4); Platelet Count 444 K/uL (130-400); RDW Standard Deviation 44.9 fL (36.4-46.3); Red Blood Count 5.01 M/uL (4.70-6.10); White Blood Count 10.79 K/ul (4.8-10.8)
--- NOTE | 2023-09-22 06:16 | CT Scan Report ---
Exam(s): CT ABDOMEN + PELVIS With Contrast IV Amt: 87 cc's optiray 320 EXAM: CT Abdomen and Pelvis With Intravenous Contrast CLINICAL HISTORY: Reason for exam: abd pain n v. TECHNIQUE: Axial computed tomography images of the abdomen and pelvis with intravenous contrast. CTDI is 19.87 mGy and DLP is 1006.63 mGy-cm. Automated exposure control was utilized for the study. A dose lowering technique was utilized adhering to the principles of ALARA. CONTRAST: Patient received 87 cc's optiray 320 of IV contrast COMPARISON: No relevant prior studies available. FINDINGS: Lung bases: Unremarkable. No mass. No consolidation. Pleural space: Small left pleural effusion. ABDOMEN: Liver: Unremarkable. No mass. Gallbladder and bile ducts: Unremarkable. No calcified stones. No ductal dilation. Pancreas: Unremarkable. No mass. No ductal dilation. Spleen: Unremarkable. No splenomegaly. Adrenals: Unremarkable. No mass. Kidneys and ureters: Postoperative changes left sided percutaneous nephrostomy tube. Left-sided ureteral calculi remain within the left renal pelvis. Multiple left-sided distal left ureteral calculi are stable in appearance when compared to prior exam. Simple right lower pole renal cyst. No follow-up of this simple cyst is necessary. Simple right upper pole renal cyst. No follow-up of this simple cyst is necessary. No hydronephrosis. Stomach and bowel: The stomach is distended and there is air within the gastric wall concerning for pneumatosis. Subtle associated inflammatory changes. No mucosal thickening. PELVIS: Appendix: No findings to suggest acute appendicitis. Bladder: Urinary bladder is nondistended and contains a suprapubic catheter. Reproductive: Unremarkable as visualized. ABDOMEN and PELVIS: Intraperitoneal space: Unremarkable. No free air. No significant fluid collection. Bones/joints: 1.7 cm right adrenal gland nodule unchanged from prior exam likely representing a cyst. Remote healed right hip fracture. Advanced degenerative changes of the lumbar spine and left hip unchanged from prior study. No dislocation. Soft tissues: Unremarkable. Vasculature: Unremarkable. No abdominal aortic aneurysm. Lymph nodes: Unremarkable. No enlarged lymph nodes. IMPRESSION: 1. Circumferential wall thickening in the gastric fundus with areas of mural air consistent with pneumatosis within same. There is a small amount of associated inflammatory change. Direct visual inspection is recommended for further evaluation. 2. Left-sided percutaneous nephrostomy tube with resolution of left- sided hydronephrosis. No interval change and the appearance to the multiple left renal calculi. 3. Other chronic changes described above Electronically signed by: James Milian MD 09/22/23 06:15 AM
[2023-09-22] MEDS ORDERED: PANTOprazole 40 MG in SYRINGE 0 ML IV ONE (06:30)
[2023-09-22 06:32] LABS: Potassium 3.7 mmol/L (3.5-5.1)
[2023-09-22 06:33] LABS: Basophils # (auto) 0.03 K/uL (0.00-0.20); Basophils % (auto) 0.3 %; Immature Granulocytes # (auto) 0.07 K/uL (0.01-0.20); Immature Granulocytes % (auto) 0.6 %; Lymphocytes # (auto) 0.16 K/uL (1.20-3.40); Lymphocytes % (auto) 1.5 %; Monocytes # (auto) 0.04 K/uL (0.11-0.59); Monocytes % (auto) 0.4 %; Neutrophils # (auto) 10.49 K/uL (1.40-6.50); Neutrophils % (auto) 97.2 %; RBC Morphology Unremarkable
[2023-09-22 08:28] LABS: Calcium 8.3 mg/dl (8.6-10.3); Creatinine Clr Calc Pharmacy 143.9 ml/min; Est GFR (African American) 139.5 ml/min; Est GFR (Non-African American) 120.3 ml/min; Magnesium 1.7 mg/dl (1.7-2.4)
[2023-09-22] MEDS: PARoxetine HCL 20 MG TAB PO SCH (09:06)
[2023-09-22] MEDS: FLUTICASONE PROPIONATE NA SPR 16 GM BTL SCH (09:07)
[2023-09-22] MEDS: AZELASTINE HCL 0.1% NASAL 200 SPRAYS/27,400 MCG BTL SCH ×2 (09:07→21:09)
--- NOTE | 2023-09-22 10:32 | Gastrointestinal Consultation ---
Date of Consultation September 22, 2023 Assessment & Plan (1) Abnormal CT of the abdomen: Pleasant man with finding of air in the wall of the stomach. This is a difficult situation because this can be both a benign and potentially serious condition. Gastric emphysema or gastric pneumatosis is a benign condition that causes no issues. Emphysematous gastritis is a more serious condition and is usually seen in ill people. This can be the result of infection or ischemia. He should have EGD done. I offered him to have it done today but when he found out Dr. Cobb was working tomorrow he told me "if its all the same to you I want to wait and see what he says". I told him if he developed any stomach issues we should go ahead and do it today but since he is comfortable and has no leukocytosis currently we can wait and let him discuss with Dr. Cobb History of Present Illness Reason for Consultation: abnormal CT scan Attending Physician: Rishabh Munoz MD History of Present Illness 68 year old man admitted with bladder infection was found on CT scan to have distended stomach and air in the wall of the stomach. He tells me he has had some lower abdominal cramping pains and he has also been vomiting some. He is on a clear liquid diet though and tolerating. He doesn't have other pains other than cramping pains. He denies fevers. He tells me he has had no chronic stomach issues. Allergies Allergy/AdvReac Type Severity Reaction Status Date / Time iodine Allergy Intermediate A Verified 08/26/23 09:56 TEEN-SKIN CONTACT BURNED THE SKIN-FELT LIKE ON FIRE adhesive Allergy Mild ADHESIVE Verified 08/26/23 09:56 TAPE RIPS SKIN APART clindamycin Allergy Mild RASH Verified 08/26/23 09:56 Iodinated Contrast Media Allergy Mild NAUSEA Verified 08/26/23 09:56 Penicillins Allergy Mild HIVES-ITCHING,HAS Verified 08/26/23 09:56 TOLERATED ANCEF IN PAST pineapple Allergy Mild "TONGUE Verified 08/26/23 09:56 WALKER AND CRACKS" vancomycin Allergy Mild hives Verified 08/26/23 09:56 aspirin AdvReac Mild GI Verified 08/26/23 09:56 SENSITIVITY Home Medications Medication Instructions Recorded Confirmed Type azelastine 137 mcg (0.1 %) nasal 2 spray intranasal AMHS 06/25/23 09/21/23 History spray aerosol magnesium oxide 400 mg PO QAM 06/25/23 09/21/23 History pantoprazole 40 mg tablet,delayed 40 mg PO DAILY 06/25/23 09/21/23 History release paroxetine HCl 10 mg tablet 20 mg PO DAILY 06/25/23 09/21/23 History cefdinir 300 mg capsule 300 mg PO AMHS 09/21/23 09/21/23 History fluticasone propionate 50 2 spray intranasal QAM 09/21/23 09/21/23 History mcg/actuation nasal spray,suspension Patient History Medical History (Updated 09/22/23 @ 10:33 by Jemima Saeed Jr, MD) Abnormal CT of the abdomen Slow to wake up after anesthesia History of frequent urinary tract infections Environmental allergies Little catheter in place suprapubic catheter Chronic allergic rhinitis Hx of Clostridium difficile infection dx years ago Hx MRSA infection stool, dx years ago Hx of migraines History of palpitations hx holter monitoring>no findings; f/u PCP Stage IV pressure ulcer of buttock IBS (irritable bowel syndrome) Anxiety and depression HTN (hypertension) Seasonal allergies Schatzki's ring Wheelchair bound Decubitus ulcer CHRONIC; FOLLOWS W/ WOUND CLINIC- right groin area currently Chronic back pain Osteoarthritis Kidney stones Neurogenic bladder Colostomy in place Chronic gum disease Tinnitus RT EAR Hearing deficit RT EAR History of febrile seizure X 1; CHILDHOOD Deep vein thrombosis > 10 YEARS AGO - TREATED W/ BLOOD THINNERS - R/T IMMOBILITY Dysphagia Spina bifida SPINAL CLOSURE INFANT Paraplegia from the waist down-confined to wheelchair Surgical History History of suprapubic catheter History of esophagogastroduodenoscopy (EGD) History of sinus surgery History of surgery RT HIP WOUND DEBRIDEMENT W/ SKIN GRAFTING History of exploratory laparotomy History of incisional hernia repair X5 History of anesthesia reaction SLOW TO WAKE 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 History of cystoscopy W/ STONE EXTRACTION History of colonoscopy History of lithotripsy Status post myringotomy with insertion of tube History of tooth extraction History of esophageal dilatation Family History Other No family history of adverse response to anesthesia Social History Smoking Status: Former smoker Second Hand Exposure: No; Do You Dip or Chew Tobacco: No; Hx Alcohol Use: Yes Alcohol type: beer Hx Substance Use: No Preferred Language: Haitian Communication Ability: Effective Playground Monitor Required: No Beliefs That Will Affect Care: Worship Worship Beliefs: Faith marital status: Single Current Living Situation: Alone Current Living Situation Comment: 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 How many Children do You have: 0 Other Information That Helps Us Care for You: Yes (Upcoming appointments) Feels Safe at Home: Yes Safety Concerns: Feels Safe At This Time Assistive Devices: Glasses and Wheelchair Review of Systems Review of Systems: All systems reviewed & are unremarkable except as noted in HPI & below Physical Exam Physical Exam: He looks comfortable Constitutional: WD/WN, vitals as above Neck: trachea midline, no thyromegaly Respiratory: normal respiratory effort, lungs clear to auscultation Cardiovascular: RRR, no murmur, no edema Gastrointestinal (Abdomen): normal bowel sounds, soft, nontender, no hepatosplenomegaly (suprapubic catheter, left sided colostomy) Results & Data Vital Signs (Past 12 Hours) Vital Signs Temp Pulse Resp BP Pulse Ox O2 Del Method 09/22/23 07:17 36.6 C 92 H 18 118/71 98 Room Air 09/22/23 00:54 36.7 C 98 H 18 163/87 H 98 Room Air Laboratory Results 09/22/23 Range/Units 05:37 WBC 10.79 (4.8-10.8) K/ul RBC 5.01 (4.70-6.10) M/uL Hgb 12.1 L (14.0-18.0) g/dl Hct 39.0 L (42.0-52.0) % MCV 77.8 L (80.0-100.0) fL MCH 24.2 L (25.0-34.0) pg MCHC 31.0 L (32.0-36.0) g/dL RDW Std Deviation 44.9 (36.4-46.3) fL RDW Coeff of Sebastian 16.0 H (11.5-14.5) % Plt Count 444 H (130-400) K/uL MPV 8.6 L (9.4-12.4) fL Immature Gran % (Auto) 0.6 % Neut % (Auto) 97.2 % Lymph % (Auto) 1.5 % [place] % (Auto) 0.4 % Eos % (Auto) 0.0 % Baso % (Auto) 0.3 % Neut # (Auto) 10.49 H (1.40-6.50) K/uL Lymph # (Auto) 0.16 L (1.20-3.40) K/uL [place] # (Auto) 0.04 L (0.11-0.59) K/uL Eos # (Auto) 0.00 (0.00-0.50) K/uL Baso # (Auto) 0.03 (0.00-0.20) K/uL Immature Gran # (Auto) 0.07 (0.01-0.20) K/uL RBC Morphology Unremarkable Sodium 139 (136-145) mmol/L Potassium 3.7 D (3.5-5.1) mmol/L Chloride 108 H (98-107) mmol/L Carbon Dioxide 24 (21-32) mmol/L Anion Gap 7 (3-11) BUN 8 (6-23) mg/dl Creatinine 0.40 L (0.6-1.4) mg/dl Est Cr Clr Drug Dosing 143.9 ml/min Est GFR ( Amer) 139.5 ml/min Est GFR (Non-Af Amer) 120.3 ml/min BUN/Creatinine Ratio 20.0 (10-20) Glucose 175 H (70-99(Fasting)) mg/dl Calcium 8.3 L (8.6-10.3) mg/dl Magnesium 1.7 (1.7-2.4) mg/dl Diagnostic Findings Abdomen/Pelvis CT 09/22/23 00:58 Exam(s): CT ABDOMEN + PELVIS With Contrast IV Amt: 87 cc's optiray 320 EXAM: CT Abdomen and Pelvis With Intravenous Contrast CLINICAL HISTORY: Reason for exam: abd pain n v. TECHNIQUE: Axial computed tomography images of the abdomen and pelvis with intravenous contrast. CTDI is 19.87 mGy and DLP is 1006.63 mGy-cm. Automated exposure control was utilized for the study. A dose lowering technique was utilized adhering to the principles of ALARA. CONTRAST: Patient received 87 cc's optiray 320 of IV contrast COMPARISON: No relevant prior studies available. FINDINGS: Lung bases: Unremarkable. No mass. No consolidation. Pleural space: Small left pleural effusion. ABDOMEN: Liver: Unremarkable. No mass. Gallbladder and bile ducts: Unremarkable. No calcified stones. No ductal dilation. Pancreas: Unremarkable. No mass. No ductal dilation. Spleen: Unremarkable. No splenomegaly. Adrenals: Unremarkable. No mass. Kidneys and ureters: Postoperative changes left sided percutaneous nephrostomy tube. Left-sided ureteral calculi remain within the left renal pelvis. Multiple left-sided distal left ureteral calculi are stable in appearance when compared to prior exam. Simple right lower pole renal cyst. No follow-up of this simple cyst is necessary. Simple right upper pole renal cyst. No follow-up of this simple cyst is necessary. No hydronephrosis. Stomach and bowel: The stomach is distended and there is air within the gastric wall concerning for pneumatosis. Subtle associated inflammatory changes. No mucosal thickening. PELVIS: Appendix: No findings to suggest acute appendicitis. Bladder: Urinary bladder is nondistended and contains a suprapubic catheter. Reproductive: Unremarkable as visualized. ABDOMEN and PELVIS: Intraperitoneal space: Unremarkable. No free air. No significant fluid collection. Bones/joints: 1.7 cm right adrenal gland nodule unchanged from prior exam likely representing a cyst. Remote healed right hip fracture. Advanced degenerative changes of the lumbar spine and left hip unchanged from prior study. No dislocation. Soft tissues: Unremarkable. Vasculature: Unremarkable. No abdominal aortic aneurysm. Lymph nodes: Unremarkable. No enlarged lymph nodes. IMPRESSION: 1. Circumferential wall thickening in the gastric fundus with areas of mural air consistent with pneumatosis within same. There is a small amount of associated inflammatory change. Direct visual inspection is recommended for further evaluation. 2. Left-sided percutaneous nephrostomy tube with resolution of left- sided hydronephrosis. No interval change and the appearance to the multiple left renal calculi. 3. Other chronic changes described above Electronically signed by: James Milian MD 09/22/23 06:15 AM
--- NOTE | 2023-09-22 18:27 | Hospitalist Progress Note ---
Date of Service September 22, 2023 Assessment & Plan (1) Complicated UTI (urinary tract infection): Plan: POSSIBLE UTI recurrent UTIs secondary to neurogenic bladder secondary to spina bifida status post suprapubic catheter placement/hx staghorn calculi as per records/left hydronephrosis status post PCNL, Failed outpatient treatment Urine culture: More than 3 organisms, recommend recollection Repeat urine culture: Pending Blood cultures: Negative so far On IV cefepime ABDOMINAL PAIN, POSSIBLE GASTRIC FUNDUS PNEUMATOSIS Protonix IV twice daily GI consulted Reassessed by [facility] tomorrow for possible EGD Hypokalemia secondary to transient diarrhea illness Resolved history of colostomy GERD, stable on PPI chronic anemia, hemoglobin at baseline chronic decubitus wound, worsening as per patient anxiety/mood disorder, at baseline past tobacco abuse History of VRE DVT prophylaxis per Lovenox subcu Full code Admission and Anticipated Discharge Date Admission Date: September 21, 2023 Subjective Follow-up for hypokalemia, UTI, etc. Seen resting in bed, comfortable, not in distress Events overnight noted Denies abdominal pain today, tolerating diet well No fevers or chills No other new symptoms Review of Systems Review of Systems: all noted and negative except for above Physical Exam Physical Exam: General- oriented x 3, not in distress, speaks in sentences with no effort or accessory muscle use Eyes- anicteric Neck- no JVD Lungs- clear breath sounds bilaterally, no rales/wheezes Heart- normal rate, regular rhythm; no murmurs Abdomen- normal bowel sounds, nondistended, soft, nontender Suprapubic catheter: Draining yellow urine, clear Nephrostomy tube: Draining yellow urine, clear Extremities- no pretibial edema, no calf tenderness Neuro- alert, oriented x 3; no gross focal neurologic deficits Skin- warm & dry Results & Data Results & Data Vital Signs (Past 12 Hours) Vital Signs Temp Pulse Resp BP Pulse Ox O2 Del Method 09/22/23 15:16 36.8 C 86 16 103/62 98 Room Air 09/22/23 07:17 36.6 C 92 H 18 118/71 98 Room Air all noted and reviewed including below
[2023-09-22] MEDS: PANTOprazole 40 MG in SYRINGE 0 ML IV SCH (21:09)
[2023-09-23] MEDS ORDERED: NSS + 20MEQ KCL 20 MEQ/1,000 ML BAG IV ONE (00:30)
[2023-09-23] MEDS: CEFEPIME 2,000 MG in SYRINGE 0 ML IV SCH ×3 (00:35→18:06)
[2023-09-23] MEDS: PANTOprazole 40 MG in SYRINGE 0 ML IV SCH (08:19)
[2023-09-23] MEDS: FLUTICASONE PROPIONATE NA SPR 16 GM BTL SCH (08:19)
[2023-09-23] MEDS: PARoxetine HCL 20 MG TAB PO SCH (08:20)
[2023-09-23] MEDS: AZELASTINE HCL 0.1% NASAL 200 SPRAYS/27,400 MCG BTL SCH ×2 (08:20→20:29)
[2023-09-23 09:41] LABS: Appearance Urine Clear (Clear); Bilirubin Urine Negative (Negative); Blood Urine 2+ (Negative); Color Urine Yellow; Glucose Urine UA Negative (Negative); Ketones Urine Trace (Negative); Leukocyte Esterase Urine 2+ (Negative); Nitrite Urine Negative (Negative); Protein Urine Negative (Negative); Specific Gravity Urine 1.018 (1.000-1.030); Urobilinogen Urine Negative (Negative); WBC Urine Automated >30 /hpf (0-5)
[2023-09-23] MEDS ORDERED: ATROPINE SULFATE 0.1 MG/ML 10ML SYR IV PRN (09:55)
[2023-09-23] MEDS ORDERED: HYDROmorphone INJ 1 MG/ML SYRINGE IV PRN (09:55)
[2023-09-23] MEDS ORDERED: ONDANSETRON INJ 2 MG/ML 2 ML VIAL IV PRN (09:55)
[2023-09-23] MEDS ORDERED: fentaNYL citrate PF 100 MCG/2 ML VIAL IV PRN (09:55)
[2023-09-23] MEDS ORDERED: ePHEDrine sulfate 50 MG/ML AMP IV PRN (09:55)
[2023-09-23 09:57] LABS: Mucus Urine Present (None Prsent)
[2023-09-23 09:58] LABS: Bacteria Urine Automated 1+ (Negative)
[2023-09-23] MEDS ORDERED: PROPOFOL IV EMULSION 10 MG/ML 20 ML VIAL IV ONE (10:00)
[2023-09-23] MEDS ORDERED: ROCURONIUM BROMIDE 10 MG/ML 5 ML VIAL IV ONE (10:00)
[2023-09-23] MEDS ORDERED: MIDAZOLAM HCL 1 MG/ML 2ML VIAL ONE (10:00)
[2023-09-23] MEDS ORDERED: LIDOCAINE 2% 2 ML VIAL/AMP(20MG/ML) INFIL ONE (10:00)
[2023-09-23] MEDS ORDERED: fentaNYL citrate PF 100 MCG/2 ML VIAL ONE (10:00)
[2023-09-23] MEDS ORDERED: SUGAMMADEX SODIUM 200 MG/2 ML VIAL IV ONE (10:08)
--- NOTE | 2023-09-23 10:11 | History & Physical Report ---
Date of Service September 23, 2023 Assessment & Plan Admission and Anticipated Discharge Date Admission Date: September 21, 2023 History of Present Illness Primary Care Provider: Apolinar Herrera DO Gastric ischemia, pneumatosis CV: RRR RespCTA Abd: soft A/P: EGD Allergies Allergy/AdvReac Type Severity Reaction Status Date / Time iodine Allergy Intermediate A Verified 09/23/23 09:30 TEEN-SKIN CONTACT BURNED THE SKIN-FELT LIKE ON FIRE adhesive Allergy Mild ADHESIVE Verified 09/23/23 09:30 TAPE RIPS SKIN APART clindamycin Allergy Mild RASH Verified 09/23/23 09:30 Iodinated Contrast Media Allergy Mild NAUSEA Verified 09/23/23 09:30 Penicillins Allergy Mild HIVES-ITCHING,HAS Verified 09/23/23 09:30 TOLERATED ANCEF IN PAST pineapple Allergy Mild "TONGUE Verified 09/23/23 09:30 WALKER AND CRACKS" vancomycin Allergy Mild hives Verified 09/23/23 09:30 aspirin AdvReac Mild GI Verified 09/23/23 09:30 SENSITIVITY Home Medications Medication Instructions Recorded Confirmed Type azelastine 137 mcg (0.1 %) nasal 2 spray intranasal [facility] 06/25/23 09/21/23 History spray aerosol magnesium oxide 400 mg PO QAM 06/25/23 09/21/23 History pantoprazole 40 mg tablet,delayed 40 mg PO DAILY 06/25/23 09/21/23 History release paroxetine HCl 10 mg tablet 20 mg PO DAILY 06/25/23 09/21/23 History cefdinir 300 mg capsule 300 mg PO [facility] 09/21/23 09/21/23 History fluticasone propionate 50 2 spray intranasal QA 09/21/23 09/21/23 History mcg/actuation nasal spray,suspension Past Med/Surg History Medical History (Updated 09/22/23 @ 10:33 by Jemima Saeed Jr, MD) Abnormal CT of the abdomen Slow to wake up after anesthesia History of frequent urinary tract infections Environmental allergies Little catheter in place suprapubic catheter Chronic allergic rhinitis Hx of Clostridium difficile infection dx years ago Hx MRSA infection stool, dx years ago Hx of migraines History of palpitations hx holter monitoring>no findings; f/u PCP Stage IV pressure ulcer of buttock IBS (irritable bowel syndrome) Anxiety and depression HTN (hypertension) Seasonal allergies Schatzki's ring Wheelchair bound Decubitus ulcer CHRONIC; FOLLOWS W/ WOUND CLINIC- right groin area currently Chronic back pain Osteoarthritis Kidney stones Neurogenic bladder Colostomy in place Chronic gum disease Tinnitus RT EAR Hearing deficit RT EAR History of febrile seizure X 1; CHILDHOOD Deep vein thrombosis > 10 YEARS AGO - TREATED W/ BLOOD THINNERS - R/T IMMOBILITY Dysphagia Spina bifida SPINAL CLOSURE INFANT Paraplegia from the waist down-confined to wheelchair Surgical History History of suprapubic catheter History of esophagogastroduodenoscopy (EGD) History of sinus surgery History of surgery RT HIP WOUND DEBRIDEMENT W/ SKIN GRAFTING History of exploratory laparotomy History of incisional hernia repair X5 History of anesthesia reaction SLOW TO WAKE 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 History of cystoscopy W/ STONE EXTRACTION History of colonoscopy History of lithotripsy Status post myringotomy with insertion of tube History of tooth extraction History of esophageal dilatation Family History Other No family history of adverse response to anesthesia Social History Smoking Status: Former smoker Second Hand Exposure: No; Do You Dip or Chew Tobacco: No; Hx Alcohol Use: Yes Alcohol type: beer Hx Substance Use: No Preferred Language: [place] Communication Ability: Effective Marine Biologist Required: No Beliefs That Will Affect Care: Cheondoism Cheondoism Beliefs: Samaritan marital status: Single Current Living Situation: Alone Current Living Situation Comment: 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 How many Children do You have: 0 Other Information That Helps Us Care for You: Yes (Upcoming appointments) Feels Safe at Home: Yes Safety Concerns: Feels Safe At This Time Assistive Devices: Glasses and Wheelchair Results & Data Results & Data Vital Signs (Past 12 Hours) Vital Signs Temp Pulse Resp BP Pulse Ox Pulse Ox O2 Del Method 09/23/23 09:32 36.9 C 98 H 16 135/67 99 Room Air 09/23/23 09:13 98 09/23/23 07:57 36.9 C 85 16 129/72 98 Room Air 09/22/23 22:26 36.7 C 88 16 105/63 99 Room Air O2 Del Method 09/23/23 09:32 09/23/23 09:13 Room Air 09/23/23 07:57 09/22/23 22:26 Code Status & VTE Plan VTE Prophylaxis Plan VTE Prophylaxis will be ordered: Yes
--- NOTE | 2023-09-23 10:12 | Anesthesiology Consultation ---
Date of Service September 23, 2023 Assessment & Plan (1) Encounter for pre-operative examination: Chart Review Chart Review: Acceptable Risk for Surgery and Patient NOT seen in Pre Admission Testing Consults Requested none History Surgery Operation Date: 09/23/23 07:00 Proposed Procedures p Esophagogastroduodenoscopy Dr Trevino - Urbano Cobb MD Operation Date: 09/23/23 07:00 Proposed Procedures p Esophagogastroduodenoscopy - Urbano Cobb MD Height/Weight Height: 5 ft 4 in Weight: 66.8 kg Allergies Allergy/AdvReac Type Severity Reaction Status Date / Time iodine Allergy Intermediate A Verified 09/23/23 09:30 TEEN-SKIN CONTACT BURNED THE SKIN-FELT LIKE ON FIRE adhesive Allergy Mild ADHESIVE Verified 09/23/23 09:30 TAPE RIPS SKIN APART clindamycin Allergy Mild RASH Verified 09/23/23 09:30 Iodinated Contrast Media Allergy Mild NAUSEA Verified 09/23/23 09:30 Penicillins Allergy Mild HIVES-ITCHING,HAS Verified 09/23/23 09:30 TOLERATED ANCEF IN PAST pineapple Allergy Mild "TONGUE Verified 09/23/23 09:30 WALKER AND CRACKS" vancomycin Allergy Mild hives Verified 09/23/23 09:30 aspirin AdvReac Mild GI Verified 09/23/23 09:30 SENSITIVITY Medications Home Medications Medication Instructions Recorded Confirmed Last Taken azelastine 137 mcg (0.1 %) nasal 2 spray intranasal [facility] 06/25/23 09/21/23 Unknown spray aerosol magnesium oxide 400 mg PO [facility] 06/25/23 09/21/23 Unknown pantoprazole 40 mg tablet,delayed 40 mg PO DAILY 06/25/23 09/21/23 Unknown release paroxetine HCl 10 mg tablet 20 mg PO DAILY 06/25/23 09/21/23 Unknown cefdinir 300 mg capsule 300 mg PO [facility] 09/21/23 09/21/23 Unknown fluticasone propionate 50 2 spray intranasal [facility] 09/21/23 09/21/23 Unknown mcg/actuation nasal spray,suspension Active Medications Generic Name Dose Route Start Last Admin Trade Name Freq PRN Reason Stop Dose Admin Azelastine HCl 2 sprays 09/21/23 10:01 09/23/23 08:20 Azelastine Hcl 0.1% Nasal 200 Sprays/27,400 Mcg Btl NA 10/21/23 10:00 2 sprays [facility] LESLI Administration Fluticasone Propionate 2 sprays 09/21/23 10:01 09/23/23 08:19 Fluticasone Propionate Na Spr 16 Gm Btl NA 10/21/23 10:00 2 sprays QAM LESLI Administration Cefepime HCl 2,000 mg/ Syringe 20 mls @ 5 mls/min 09/21/23 16:00 09/23/23 08:18 IV 10/01/23 15:59 5 mls/min Q8H LESLI Administration Protocol Pantoprazole Sodium 40 mg/ 10 mls @ 5 mls/min 09/22/23 21:00 09/23/23 08:19 Syringe IV 10/22/23 20:59 5 mls/min BID LESLI Administration Potassium Chloride/Sodium Chloride 20 meq in 1,000 mls @ 100 mls/hr 09/23/23 00:30 09/23/23 09:19 Normal Saline W/20 Meq Kcl IV 09/23/23 10:29 0 mls/hr .Q10H ONE Infusion Protocol Paroxetine HCl 20 mg 09/21/23 10:01 09/23/23 08:20 Paroxetine Hcl 20 Mg Tab PO 10/21/23 10:00 Not Given DAILY LESLI Phenazopyridine HCl 100 mg 09/21/23 15:59 09/21/23 16:51 Phenazopyridine Hcl 100 Mg Tab PO 10/21/23 15:58 100 mg TID PRN Administration Bladder pain NPO Date Last Intake of Fluids: 09/22/23 Time Last Intake of Fluids: 21:00 Date Last Intake of Solids: 09/21/23 Time Last Intake of Solids: 18:00 Past Medical History Medical History Abnormal CT of the abdomen Slow to wake up after anesthesia History of frequent urinary tract infections Environmental allergies Little catheter in place suprapubic catheter Chronic allergic rhinitis Hx of Clostridium difficile infection dx years ago Hx MRSA infection stool, dx years ago Hx of migraines History of palpitations hx holter monitoring>no findings; f/u PCP Stage IV pressure ulcer of buttock IBS (irritable bowel syndrome) Anxiety and depression HTN (hypertension) Seasonal allergies Schatzki's ring Wheelchair bound Decubitus ulcer CHRONIC; FOLLOWS W/ WOUND CLINIC- right groin area currently Chronic back pain Osteoarthritis Kidney stones Neurogenic bladder Colostomy in place Chronic gum disease Tinnitus RT EAR Hearing deficit RT EAR History of febrile seizure X 1; CHILDHOOD Deep vein thrombosis > 10 YEARS AGO - TREATED W/ BLOOD THINNERS - R/T IMMOBILITY Dysphagia Spina bifida SPINAL CLOSURE Paraplegia from the waist down-confined to wheelchair Exercise / Class Metabolic Activity IV < 2 Limit ADL/Bedbound Past Family History Family History Other No family history of adverse response to anesthesia Past Surgical History Surgical History History of suprapubic catheter History of esophagogastroduodenoscopy (EGD) History of sinus surgery History of surgery RT HIP WOUND DEBRIDEMENT W/ SKIN GRAFTING History of exploratory laparotomy History of incisional hernia repair X5 History of anesthesia reaction SLOW TO WAKE 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 History of cystoscopy W/ STONE EXTRACTION History of colonoscopy History of lithotripsy Status post myringotomy with insertion of tube History of tooth extraction History of esophageal dilatation Social History Smoking Status: Former smoker tobacco type: cigarettes Do You Dip or Chew Tobacco: No Hx Alcohol Use: Yes Alcohol type: beer alcohol intake frequency: holidays/special occasions only Hx Substance Use: No substance use type: does not use Physical Exam Vital Signs Last Vital Signs Temp 36.9 C 09/23/23 09:32 Pulse 98 H 09/23/23 09:32 Resp 16 09/23/23 09:32 BP 135/67 09/23/23 09:32 Pulse Ox 99 09/23/23 09:32 O2 Del Method Room Air 09/23/23 09:32 Testing Laboratory Results 09/22/23 05:37 09/22/23 05:37 Urine Color Yellow 09/23/23 09:14 Urine Appearance Clear (Clear) 09/23/23 09:14 Urine pH 6.0 (4.5-7.5) 09/23/23 09:14 Ur Specific Delia 1.018 (1.000-1.030) 09/23/23 09:14 Urine Protein Negative (Negative) 09/23/23 09:14 Urine Glucose (UA) Negative (Negative) 09/23/23 09:14 Urine Ketones Trace (Negative) H 09/23/23 09:14 Urine Nitrite Negative (Negative) 09/23/23 09:14 Ur Leukocyte Esterase 2+ (Negative) H 09/23/23 09:14 Urine WBC (Auto) >30 /hpf (0-5) H 09/23/23 09:14 Urine RBC (Auto) 10-30 /hpf (0-4) H 09/23/23 09:14 U Hyaline Cast (Auto) 5-10 /lpf (0-5) H 09/23/23 09:14 U Epithel Cells (Auto) 5-10 /lpf (0-5) H 09/23/23 09:14 Urine Bacteria (Auto) 1+ (Negative) H 09/23/23 09:14 09/21/23 01:36 Aerobic Blood Culture - Preliminary Blood No growth in Aerobic bottle after 48 hours. Anaerobic Blood Culture - Preliminary No growth in Anaerobic bottle after 48 hours. 09/21/23 01:00 Aerobic Blood Culture - Preliminary Blood No growth in Aerobic bottle after 48 hours. Anaerobic Blood Culture - Preliminary No growth in Anaerobic bottle after 48 hours. 09/21/23 06:07 Urine Culture - Final Urine,Straight Cath More than three types of organisms present, all high counts. Repeat collection recommended. No further identifications or sensitivities to follow. Electrocardiogram Date: 06/25/23 DICTATED BY: Keith Jaquez MD Test Reason : Blood Pressure : / mmHG Vent. Rate : 120 BPM Atrial Rate : 120 BPM P-R Int : 126 ms QRS Dur : 072 ms QT Int : 334 ms P-R-T Axes : 048 -27 055 degrees QTc Int : 472 ms Sinus tachycardia Diffuse Minor Nonspecific ST abnormality Abnormal ECG When compared with ECG of 28-SEP-2022 09:54, HR has increased by [address] abnormality slightly more prominent Confirmed by Keith Jaquez ([id number]) on 06/25/2023 2:33:59 PM Other Testing Exam(s): CT ABDOMEN + PELVIS With Contrast IV Amt: 87 cc's optiray 320 EXAM: CT Abdomen and Pelvis With Intravenous Contrast CLINICAL HISTORY: Reason for exam: abd pain n v. TECHNIQUE: Axial computed tomography images of the abdomen and pelvis with intravenous contrast. CTDI is 19.87 mGy and DLP is 1006.63 mGy-cm. Automated exposure control was utilized for the study. A dose lowering technique was utilized adhering to the principles of ALARA. CONTRAST: Patient received 87 cc's optiray 320 of IV contrast COMPARISON: No relevant prior studies available. FINDINGS: Lung bases: Unremarkable. No mass. No consolidation. Pleural space: Small left pleural effusion. ABDOMEN: Liver: Unremarkable. No mass. Gallbladder and bile ducts: Unremarkable. No calcified stones. No ductal dilation. Pancreas: Unremarkable. No mass. No ductal dilation. Spleen: Unremarkable. No splenomegaly. Adrenals: Unremarkable. No mass. Kidneys and ureters: Postoperative changes left sided percutaneous nephrostomy tube. Left-sided ureteral calculi remain within the left renal pelvis. Multiple left-sided distal left ureteral calculi are stable in appearance when compared to prior exam. Simple right lower pole renal cyst. No follow-up of this simple cyst is necessary. Simple right upper pole renal cyst. No follow-up of this simple cyst is necessary. No hydronephrosis. Stomach and bowel: The stomach is distended and there is air within the gastric wall concerning for pneumatosis. Subtle associated inflammatory changes. No mucosal thickening. PELVIS: Appendix: No findings to suggest acute appendicitis. Bladder: Urinary bladder is nondistended and contains a suprapubic catheter. Reproductive: Unremarkable as visualized. ABDOMEN and PELVIS: Intraperitoneal space: Unremarkable. No free air. No significant fluid collection. Bones/joints: 1.7 cm right adrenal gland nodule unchanged from prior exam likely representing a cyst. Remote healed right hip fracture. Advanced degenerative changes of the lumbar spine and left hip unchanged from prior study. No dislocation. Soft tissues: Unremarkable. Vasculature: Unremarkable. No abdominal aortic aneurysm. Lymph nodes: Unremarkable. No enlarged lymph nodes. IMPRESSION: 1. Circumferential wall thickening in the gastric fundus with areas of mural air consistent with pneumatosis within same. There is a small amount of associated inflammatory change. Direct visual inspection is recommended for further evaluation. 2. Left-sided percutaneous nephrostomy tube with resolution of left- sided hydronephrosis. No interval change and the appearance to the multiple left renal calculi. 3. Other chronic changes described above
[2023-09-23] MEDS ORDERED: PANTOPRAZOLE BOLUS/DRIP IV STA (11:11)
--- NOTE | 2023-09-23 11:16 | GI REPORT ---
Patient Name: Vernon Sommer Procedure Date: 09/23/2023 9:49 AM Date of : 1955 Admit Type: Inpatient Age: 68 Gender: Male Attending MD: Urbano Cobb MD, Procedure: Upper GI endoscopy Providers: Urbano Cobb MD Referring MD: Rishabh Munoz Indications: Abnormal CT of the GI tract Medicines: See the Anesthesia note for documentation of the administered medications Complications: No immediate complications. Estimated Blood Loss: Estimated blood loss: none. Procedure: Pre-Anesthesia Assessment: - ASA Grade Assessment: III - A patient with severe systemic disease. After obtaining informed consent, the endoscope was passed under direct vision. Throughout the procedure, the patient's blood pressure, pulse, and oxygen saturations were monitored continuously. The Endoscope was introduced through the mouth, and advanced to the fourth part of duodenum. The upper GI endoscopy was accomplished without difficulty; gentle advancement of the scope with minimal insufflation was done. The patient tolerated the procedure well. Findings: The esophagus was mildly tortuous, but the mucosa was normal. The GE junction was at 40 cm. There was no hiatal hernia on forward view. On retroflexion, there was diffuse mucosal congestion and patchy submucosal hemorrhage involving the cardia, fundus, and upper body. The wall of the fundus was bulging with compression of the lumen, presumably due to pneumatosis. There was a focal area of ulceration in the fundus. There was moderate patchy erythema at the incisura and antrum. Biopsies taken from antrum. The duodenum was normal. No evidence of gastric outlet obstruction. Impression: Emphysematous gastritis. Recommendation: Discharge pt to floor. NPO for today; can consider clears tomorrow. PPI gtt. Broad spectrum abx to include strep viridans and anaerobic coverage. Surgery consult. Avoid NSAIDs, steroids. Urbano Cobb M.D. Urbano Cobb MD 09/23/2023 11:16:13 AM This report has been signed electronically. Note Initiated On: 09/23/2023 9:49 AM Number of Addenda: 0 I attest to the content of the Intraoperative Record and orders documented therein, exceptions below {[id number]}
[2023-09-23] MEDS ORDERED: PANTOprazole 80 MG in DEXTROSE 5% 100 ML IV ONE (11:30)
--- NOTE | 2023-09-23 13:14 | Anesthesiology Progress Note ---
Date of Service September 23, 2023 Anesthesia Post Procedure Vital Signs Vital Signs: Temp Pulse Pulse Resp BP Pulse Ox Pulse Ox 09/23/23 12:13 36.7 C 79 16 116/69 98 09/23/23 11:40 36.9 C 81 16 118/62 95 09/23/23 11:30 85 16 121/61 97 09/23/23 11:20 93 H 17 114/62 100 09/23/23 11:10 36.5 C 86 16 121/60 100 09/23/23 09:32 36.9 C 98 H 16 135/67 99 09/23/23 09:13 98 09/23/23 07:57 36.9 C 85 16 129/72 98 09/22/23 22:26 36.7 C 88 16 105/63 99 09/22/23 21:10 09/22/23 15:16 36.8 C 86 16 103/62 98 O2 Del Method O2 Del Method O2 Flow Rate 09/23/23 12:13 Room Air 09/23/23 11:40 Room Air 0 09/23/23 11:30 Room Air 0 09/23/23 11:20 Oxymask 2 09/23/23 11:10 Oxymask 6 09/23/23 09:32 Room Air 09/23/23 09:13 Room Air 09/23/23 07:57 Room Air 09/22/23 22:26 Room Air 09/22/23 21:10 Room Air 09/22/23 15:16 Room Air Transfer of Care Handoff Completed per policy Notes Mental Status: alert / awake / arousable and participated in evaluation Patient Amnestic to Procedure: Yes Nausea / Vomiting: adequately controlled Pain: adequately controlled Airway Patency, RR, SpO2: stable & adequate BP & HR: stable & adequate Hydration State: stable & adequate Anesthetic Complications: no major complications apparent and Pt Satisfied with anesthetic care
[2023-09-23] MEDS: DAPTOmycin 225 MG in SYRINGE 0 ML IV SCH (13:24)
--- NOTE | 2023-09-23 13:49 | Surgery Consultation ---
Date of Consultation September 23, 2023 Assessment & Plan (1) Abnormal CT of the abdomen: (2) Ischemia, bowel: Plan 68-year-old gentleman with multiple medical problems presents with what appears to be bowel ischemia in the stomach.'s unclear etiology. It does not appear to be transmural and there is no evidence of perforation. He has stable and normal vital signs. He does not have fever. His white count is normal. His abdomen is soft with no tenderness to palpation. He states he is feeling improved from the other day. He is on broad-spectrum antibiotics and Protonix. Given his clinical presentation, we will observe him for now. If he were to show signs of worsening or sepsis, he will need to be transferred to a tertiary care center such as [facility] or [facility] for possible surgical intervention on his stomach. We will continue to monitor him while he is here. History of Present Illness Reason for Consultation: gastric pneumatosis Requesting Physician: Rishabh Munoz MD Attending Physician: Rishabh Munoz MD History of Present Illness 68-year-old gentleman with multiple medical problems presents with a bladder infection. He was having lower abdominal cramping. CT scan of the abdomen pelvis was done which demonstrated distention and pneumatosis of the gastric wall. An EGD was just completed which demonstrates inflammation ischemia of the gastric wall without evidence of transmural necrosis. No perforation is noted. He states that he is feeling better over the last 2 days. He denies fevers or chills. He denies nausea or vomiting. He is hungry. Allergies Allergy/AdvReac Type Severity Reaction Status Date / Time iodine Allergy Intermediate A Verified 09/23/23 09:30 TEEN-SKIN CONTACT BURNED THE SKIN-FELT LIKE ON FIRE adhesive Allergy Mild ADHESIVE Verified 09/23/23 09:30 TAPE RIPS SKIN APART clindamycin Allergy Mild RASH Verified 09/23/23 09:30 Iodinated Contrast Media Allergy Mild NAUSEA Verified 09/23/23 09:30 Penicillins Allergy Mild HIVES-ITCHING,HAS Verified 09/23/23 09:30 TOLERATED ANCEF IN PAST pineapple Allergy Mild "TONGUE Verified 09/23/23 09:30 WALKER AND CRACKS" vancomycin Allergy Mild hives Verified 09/23/23 09:30 aspirin AdvReac Mild GI Verified 09/23/23 09:30 SENSITIVITY Home Medications Medication Instructions Recorded Confirmed Type azelastine 137 mcg (0.1 %) nasal 2 spray intranasal AMHS 06/25/23 09/21/23 History spray aerosol magnesium oxide 400 mg PO QAM 06/25/23 09/21/23 History pantoprazole 40 mg tablet,delayed 40 mg PO DAILY 06/25/23 09/21/23 History release paroxetine HCl 10 mg tablet 20 mg PO DAILY 06/25/23 09/21/23 History cefdinir 300 mg capsule 300 mg PO AMHS 09/21/23 09/21/23 History fluticasone propionate 50 2 spray intranasal QA 09/21/23 09/21/23 History mcg/actuation nasal spray,suspension Patient History Medical History Abnormal CT of the abdomen Slow to wake up after anesthesia History of frequent urinary tract infections Environmental allergies Little catheter in place suprapubic catheter Chronic allergic rhinitis Hx of Clostridium difficile infection dx years ago Hx MRSA infection stool, dx years ago Hx of migraines History of palpitations hx holter monitoring>no findings; f/u PCP Stage IV pressure ulcer of buttock IBS (irritable bowel syndrome) Anxiety and depression HTN (hypertension) Seasonal allergies Schatzki's ring Wheelchair bound Decubitus ulcer CHRONIC; FOLLOWS W/ WOUND CLINIC- right groin area currently Chronic back pain Osteoarthritis Kidney stones Neurogenic bladder Colostomy in place Chronic gum disease Tinnitus RT EAR Hearing deficit RT EAR History of febrile seizure X 1; CHILDHOOD Deep vein thrombosis > 10 YEARS AGO - TREATED W/ BLOOD THINNERS - R/T IMMOBILITY Dysphagia Spina bifida SPINAL CLOSURE Paraplegia from the waist down-confined to wheelchair Surgical History History of suprapubic catheter History of esophagogastroduodenoscopy (EGD) History of sinus surgery History of surgery RT HIP WOUND DEBRIDEMENT W/ SKIN GRAFTING History of exploratory laparotomy History of incisional hernia repair X5 History of anesthesia reaction SLOW TO WAKE 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 History of cystoscopy W/ STONE EXTRACTION History of colonoscopy History of lithotripsy Status post myringotomy with insertion of tube History of tooth extraction History of esophageal dilatation Family History Other No family history of adverse response to anesthesia Social History Smoking Status: Former smoker Second Hand Exposure: No; Do You Dip or Chew Tobacco: No; Hx Alcohol Use: Yes Alcohol type: beer Hx Substance Use: No Preferred Language: Citizen Of [place] Communication Ability: Effective Client Technical Professional Required: No Beliefs That Will Affect Care: Mormon Mormon Beliefs: Yarsani marital status: Single Current Living Situation: Alone Current Living Situation Comment: 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 How many Children do You have: 0 Other Information That Helps Us Care for You: Yes (Upcoming appointments) Feels Safe at Home: Yes Safety Concerns: Feels Safe At This Time Assistive Devices: Glasses and Wheelchair Review of Systems Review of Systems: All systems reviewed & are unremarkable except as noted in HPI & below Physical Exam Constitutional: + ill appearing, + frail appearing, coop erative and comfortable Eyes: PERRL, conjunctivae normal, anicteric sclerae Neck: trachea midline, no thyromegaly Respiratory: normal respiratory effort; no respiratory distress and no labored breathing Cardiovascular: Rate/Rhythm: regular rate and regular rhythm Gastrointestinal (Abdomen): Inspection/Auscultation: abdomen normal to inspection; abdomen not distended Percussion/Palpation: abdomen soft; abdomen nontender, no guarding and abdomen not rigid Skin: no rashes, warm and dry Psychiatric: A+Ox3, euthymic affect Results & Data Vital Signs (Past 12 Hours) Vital Signs Temp Pulse Pulse Resp BP Pulse Ox Pulse Ox 09/23/23 12:13 36.7 C 79 16 116/69 98 09/23/23 11:40 36.9 C 81 16 118/62 95 09/23/23 11:30 85 16 121/61 97 09/23/23 11:20 93 H 17 114/62 100 09/23/23 11:10 36.5 C 86 16 121/60 100 09/23/23 09:32 36.9 C 98 H 16 135/67 99 09/23/23 09:13 98 09/23/23 07:57 36.9 C 85 16 129/72 98 O2 Del Method O2 Del Method O2 Flow Rate 09/23/23 12:13 Room Air 09/23/23 11:40 Room Air 0 09/23/23 11:30 Room Air 0 09/23/23 11:20 Oxymask 2 09/23/23 11:10 Oxymask 6 09/23/23 09:32 Room Air 09/23/23 09:13 Room Air 09/23/23 07:57 Room Air Laboratory Results 09/23/23 Range/Units 09:14 Urine Color Yellow Urine Appearance Clear (Clear) Urine pH 6.0 (4.5-7.5) Ur Specific [place] 1.018 (1.000-1.030) Urine Protein Negative (Negative) Urine Glucose (UA) Negative (Negative) Urine Ketones Trace H (Negative) Urine Blood 2+ H (Negative) Urine Nitrite Negative (Negative) Urine Bilirubin Negative (Negative) Urine Urobilinogen Negative (Negative) Ur Leukocyte Esterase 2+ H (Negative) Urine WBC (Auto) >30 H (0-5) /hpf Urine RBC (Auto) 10-30 H (0-4) /hpf U Hyaline Cast (Auto) 5-10 H (0-5) /lpf U Epithel Cells (Auto) 5-10 H (0-5) /lpf Urine Bacteria (Auto) 1+ H (Negative) Ur Renal Epithelial Cell Not Reportable Urine Mucus Present A (None Prsent) Diagnostic Findings Exam(s): CT ABDOMEN + PELVIS With Contrast IV Amt: 87 cc's optiray 320 EXAM: CT Abdomen and Pelvis With Intravenous Contrast CLINICAL HISTORY: Reason for exam: abd pain n v. TECHNIQUE: Axial computed tomography images of the abdomen and pelvis with intravenous contrast. CTDI is 19.87 mGy and DLP is 1006.63 mGy-cm. Automated exposure control was utilized for the study. A dose lowering technique was utilized adhering to the principles of ALARA. CONTRAST: Patient received 87 cc's optiray 320 of IV contrast COMPARISON: No relevant prior studies available. FINDINGS: Lung bases: Unremarkable. No mass. No consolidation. Pleural space: Small left pleural effusion. ABDOMEN: Liver: Unremarkable. No mass. Gallbladder and bile ducts: Unremarkable. No calcified stones. No ductal dilation. Pancreas: Unremarkable. No mass. No ductal dilation. Spleen: Unremarkable. No splenomegaly. Adrenals: Unremarkable. No mass. Kidneys and ureters: Postoperative changes left sided percutaneous nephrostomy tube. Left-sided ureteral calculi remain within the left renal pelvis. Multiple left-sided distal left ureteral calculi are stable in appearance when compared to prior exam. Simple right lower pole renal cyst. No follow-up of this simple cyst is necessary. Simple right upper pole renal cyst. No follow-up of this simple cyst is necessary. No hydronephrosis. Stomach and bowel: The stomach is distended and there is air within the gastric wall concerning for pneumatosis. Subtle associated inflammatory changes. No mucosal thickening. PELVIS: Appendix: No findings to suggest acute appendicitis. Bladder: Urinary bladder is nondistended and contains a suprapubic catheter. Reproductive: Unremarkable as visualized. ABDOMEN and PELVIS: Intraperitoneal space: Unremarkable. No free air. No significant fluid collection. Bones/joints: 1.7 cm right adrenal gland nodule unchanged from prior exam likely representing a cyst. Remote healed right hip fracture. Advanced degenerative changes of the lumbar spine and left hip unchanged from prior study. No dislocation. Soft tissues: Unremarkable. Vasculature: Unremarkable. No abdominal aortic aneurysm. Lymph nodes: Unremarkable. No enlarged lymph nodes. IMPRESSION: 1. Circumferential wall thickening in the gastric fundus with areas of mural air consistent with pneumatosis within same. There is a small amount of associated inflammatory change. Direct visual inspection is recommended for further evaluation. 2. Left-sided percutaneous nephrostomy tube with resolution of left- sided hydronephrosis. No interval change and the appearance to the multiple left renal calculi. 3. Other chronic changes described above Electronically signed by: James Milian MD 09/22/23 06:1
[2023-09-23] MEDS: PANTOprazole 40 MG in DEXTROSE 5% MINI-B 100 ML IV SCH ×2 (14:22→21:32)
[2023-09-23] MEDS: metroNIDAZOLE 500 MG/100 ML BAG IV SCH ×2 (14:47→20:29)
--- NOTE | 2023-09-23 16:58 | Hospitalist Progress Note ---
Date of Service September 23, 2023 Assessment & Plan (1) Complicated UTI (urinary tract infection): Plan: POSSIBLE UTI Suprapubic catheter and left percutaneous nephrostomy related UTI recurrent UTIs secondary to neurogenic bladder secondary to spina bifida status post suprapubic catheter placement/hx staghorn calculi as per records/left hydronephrosis status post PCNL, Failed outpatient treatment Urine culture: More than 3 organisms, recommend recollection Repeat urine culture: Pending Blood cultures: Negative so far On IV cefepime ABDOMINAL PAIN, POSSIBLE GASTRIC FUNDUS PNEUMATOSIS Protonix IV twice daily GI consulted Reassessed by [facility] GI service tomorrow for possible EGD Hypokalemia secondary to transient diarrhea illness Resolved history of colostomy GERD, stable on PPI chronic anemia, hemoglobin at baseline chronic decubitus wound, worsening as per patient anxiety/mood disorder, at baseline past tobacco abuse History of VRE DVT prophylaxis per Lovenox subcu Full code Admission and Anticipated Discharge Date Admission Date: September 21, 2023 Results & Data Results & Data Vital Signs (Past 12 Hours) Vital Signs Temp Pulse Pulse Resp BP BP Pulse Ox 09/23/23 15:41 36.7 C 84 16 109/66 99 09/23/23 12:13 36.7 C 79 16 116/69 98 09/23/23 11:40 36.9 C 81 16 118/62 95 09/23/23 11:30 85 16 121/61 97 09/23/23 11:20 93 H 17 114/62 100 09/23/23 11:10 36.5 C 86 16 121/60 100 09/23/23 09:32 36.9 C 98 H 16 135/67 99 09/23/23 09:13 09/23/23 07:57 36.9 C 85 16 129/72 98 Pulse Ox O2 Del Method O2 Del Method O2 Flow Rate 09/23/23 15:41 Room Air 09/23/23 12:13 Room Air 09/23/23 11:40 Room Air 0 09/23/23 11:30 Room Air 0 09/23/23 11:20 Oxymask 2 09/23/23 11:10 Oxymask 6 09/23/23 09:32 Room Air 09/23/23 09:13 98 Room Air 09/23/23 07:57 Room Air
--- NOTE | 2023-09-23 17:28 | Hospitalist Progress Note ---
Date of Service September 23, 2023 Assessment & Plan (1) Complicated UTI (urinary tract infection): Plan: POSSIBLE UTI Suprapubic catheter and left percutaneous nephrostomy related UTI recurrent UTIs secondary to neurogenic bladder secondary to spina bifida status post suprapubic catheter placement/hx staghorn calculi as per records/left hydronephrosis status post PCNL, Failed outpatient treatment Urine culture: More than 3 organisms, recommend recollection Repeat urine culture: Pending Blood cultures: Negative so far On IV cefepime ID consulted ABDOMINAL PAIN, POSSIBLE GASTRIC FUNDUS PNEUMATOSIS Protonix IV twice daily GI consulted Status post EGD: Impression: Emphysematous gastritis. Recommendation: Discharge pt to floor. NPO for today; can consider clears tomorrow. PPI gtt. Broad spectrum abx to include strep viridans and anaerobic coverage. Surgery consult. Avoid NSAIDs, steroids. General surgery consulted: No indication for surgery at this time Monitor closely Hypokalemia secondary to transient diarrhea illness Resolved history of colostomy GERD, stable on PPI chronic anemia, hemoglobin at baseline chronic decubitus wound -Wound care consult anxiety/mood disorder, at baseline past tobacco abuse History of VRE DVT prophylaxis per Lovenox subcu Full code Admission and Anticipated Discharge Date Admission Date: September 21, 2023 Subjective Follow-up for UTI, etc. Seen resting in bed, comfortable, not in distress Abdominal pain resolved, tolerated liquid diet No fevers or chills no chest pain, dyspnea, palpitations, dizziness Clear yellow urine No other new symptom Review of Systems Review of Systems: all noted and negative except for above Physical Exam Physical Exam: General- oriented x 3, not in distress, speaks in sentences with no effort or accessory muscle use Eyes- anicteric Neck- no JVD Lungs- clear breath sounds bilaterally, no crackles, no wheezing Heart- normal rate, regular rhythm; no murmurs Abdomen- normal bowel sounds, nondistended, soft, no tenderness Suprapubic catheter in place: Yellow urine Nephrostomy tube in place: Yellow urine Extremities- no pretibial edema, no calf tenderness Neuro- alert, oriented x 3; no new gross focal neurologic deficits Skin- warm & dry Results & Data Results & Data Vital Signs (Past 12 Hours) Vital Signs Temp Pulse Pulse Resp BP BP Pulse Ox 09/23/23 15:41 36.7 C 84 16 109/66 99 09/23/23 12:13 36.7 C 79 16 116/69 98 09/23/23 11:40 36.9 C 81 16 118/62 95 09/23/23 11:30 85 16 121/61 97 09/23/23 11:20 93 H 17 114/62 100 09/23/23 11:10 36.5 C 86 16 121/60 100 09/23/23 09:32 36.9 C 98 H 16 135/67 99 09/23/23 09:13 09/23/23 07:57 36.9 C 85 16 129/72 98 Pulse Ox O2 Del Method O2 Del Method O2 Flow Rate 09/23/23 15:41 Room Air 09/23/23 12:13 Room Air 09/23/23 11:40 Room Air 0 09/23/23 11:30 Room Air 0 09/23/23 11:20 Oxymask 2 09/23/23 11:10 Oxymask 6 09/23/23 09:32 Room Air 09/23/23 09:13 98 Room Air 09/23/23 07:57 Room Air all noted and reviewed including below
[2023-09-23 18:30] LABS: BUN Creatinine Ratio 20.8 (10-20); Calcium 8.3 mg/dl (8.6-10.3); Creatinine Clr Calc Pharmacy 119.9 ml/min; Est GFR (African American) 129.4 ml/min; Est GFR (Non-African American) 111.7 ml/min; Potassium 3.6 mmol/L (3.5-5.1)
[2023-09-24] MEDS: CEFEPIME 2,000 MG in SYRINGE 0 ML IV SCH ×3 (01:48→18:26)
[2023-09-24] MEDS: PANTOprazole 40 MG in DEXTROSE 5% MINI-B 100 ML IV SCH ×4 (03:47→20:25)
[2023-09-24] MEDS: metroNIDAZOLE 500 MG/100 ML BAG IV SCH ×2 (08:58→17:45)
[2023-09-24] MEDS: AZELASTINE HCL 0.1% NASAL 200 SPRAYS/27,400 MCG BTL SCH ×2 (08:59→19:56)
[2023-09-24] MEDS: FLUTICASONE PROPIONATE NA SPR 16 GM BTL SCH (09:00)
[2023-09-24 09:12] LABS: Basophils # (auto) 0.02 K/uL (0.00-0.20); Basophils % (auto) 0.3 %; Eosinophils # (auto) 0.46 K/uL (0.00-0.50); Eosinophils % (auto) 7.6 %; Hematocrit (blood only) 34.8 % (42.0-52.0); Hemoglobin 10.5 g/dl (14.0-18.0); Immature Granulocytes # (auto) 0.04 K/uL (0.01-0.20); Immature Granulocytes % (auto) 0.7 %; Lymphocytes % (auto) 36.4 %; Mean Corpuscular Hemoglobin 23.9 pg (25.0-34.0); Mean Corpuscular Hgb Conc 30.2 g/dL (32.0-36.0); Mean Corpuscular Volume 79.3 fL (80.0-100.0); Mean Platelet Volume 8.6 fL (9.4-12.4); Monocytes # (auto) 0.48 K/uL (0.11-0.59); Monocytes % (auto) 7.9 %; Neutrophils # (auto) 2.84 K/uL (1.40-6.50); Neutrophils % (auto) 47.1 %; Platelet Count 336 K/uL (130-400); RDW Standard Deviation 46.3 fL (36.4-46.3); Red Blood Count 4.39 M/uL (4.70-6.10); White Blood Count 6.04 K/ul (4.8-10.8)
[2023-09-24 09:20] LABS: BUN Creatinine Ratio 18.4 (10-20); Calcium 8.3 mg/dl (8.6-10.3); Creatinine Clr Calc Pharmacy 117.5 ml/min; Est GFR (African American) 128.3 ml/min; Est GFR (Non-African American) 110.7 ml/min; Potassium 3.5 mmol/L (3.5-5.1)
--- NOTE | 2023-09-24 10:22 | Gastroenterology Progress Note ---
Date of Service September 24, 2023 Assessment & Plan (1) Abnormal CT of the abdomen: (2) Emphysematous gastritis: Plan 1. Antibiotics. 2. Would continue liquid diet po. 3. CT Angiogram Abd/pelvis w prednisone/Benadryl pretreat. SPoke w pharmacist and CT. Orders placed, CT to be done this evening about 1 hr after pretx. 4. Spoke w Dr. Yates, ANIKET [place] who feels Cefepime, Daptomycin and metronidazole should be appropriate antibiotic coverage for the emphysematous gastritis and UTI. 5. Per surgery, no urgent indication for surgery. 6. Diet as tolerated. 7. Will continue to follow. Admission and Anticipated Discharge Date Admission Date: September 21, 2023 Supervising Physician Co-Signing Physician Notes I performed a history and physical examination of the patient today, including specifically on physical exam - soft abdomen. I have discussed the patient's management with the advanced practitioner. Please refer to the nurse practitioner's note for the documented findings and plan of care. Subjective 68 yr old male paraplegic admitted for a clogged nephrostomy tube, dx'ed w UTI, and CT w air in the gastric wall. EGD yesterday suggestive of emphysematous gastritis (can be caused by strep viridans/aerobic bacterias). On Daptomycin/metronidazole. Pt denies having had any N/V or epigastric pain. Review of Systems Review of Systems: ROS: Gen: Denies weakness, fevers, weight loss Eyes: No eye redness, or pain, no recent vision changes Resp: No SOB, no cough Cardio: No palpitations/irregular beats, no chest pain GI: No abdominal pain, no nausea/vomiting : Denies pain on urination Skin: No jaundice, itching or new rashes Physical Exam Constitutional: Paraplegic, awake, alert, comfortable. Eyes: PERRL, conjunctivae normal, anicteric sclerae ENMT: external ear and nose normal, oropharynx normal Neck: trachea midline, no thyromegaly Respiratory: normal respiratory effort, lungs clear to auscultation Cardiovascular: RRR, no murmur, no edema Gastrointestinal (Abdomen): normal bowel sounds, soft, nontender, no hepatosplenomegaly Ostomy in place, draining semi-formed brown stool. Nephrostomy tube in place. Skin: no jaundice, warm, dry. Psychiatric: A+Ox3, euthymic affect Lymphatic: no cervical or axillary lymphadenopathy Results & Data Vital Signs (Past 12 Hours) Vital Signs Temp Pulse Resp BP Pulse Ox O2 Del Method 09/24/23 06:21 36.9 C 81 16 117/66 95 Room Air Laboratory Results WBC 6, Hb 10, hct 34, Plts 336, Na 139, K 3.5, Cl 106, CO2 28, BUN 9, Cr 0.49, glucose 84. Diagnostic Findings CTAP w IV 09/22/22: 1. Circumferential wall thickening in the gastric fundus with areas of mural air consistent with pneumatosis within same. There is a small amount of associated inflammatory change. Direct visual inspection is recommended for further evaluation. 2. Left-sided percutaneous nephrostomy tube with resolution of left- sided hydronephrosis. No interval change and the appearance to the multiple left renal calculi. 3. Other chronic changes described above
[2023-09-24] MEDS ORDERED: Nursing to Pharmacy Communication SCH (10:45)
--- NOTE | 2023-09-24 14:30 | Infectious Disease Consult ---
Date of Service September 24, 2023 Telehealth Information I performed this visit using a real-time telehealth connection between my location and the patients location ([facility]). After connecting through interactive tele-video, patient was identified by name and date of and/or wristband check.Patient (or authorized healthcare veterans employment representative) was informed that this was a telemedicine visit and it was being conducted confidentially over secure lines. My office door was closed and no one else was present in the room with me.Patient (or authorized healthcare veterans employment representative) provided consent to proceed with the visit, expressed an understanding of privacy and security of the telemedicine visit, and gave permission to have a hospital veterans employment representative in the room in order to assist with the visit and to conduct portions of the visit, as needed. I informed the patient (or authorized healthcare veterans employment representative) that I reviewed their record and presented the opportunity for them to ask any questions regarding the visit today. The patient agreed to participate. Assessment & Plan (1) Emphysematous gastritis: Plan: Continue current ABX. Discuss all ABX dosing/frequency with your pharmacist. Will need to touch base with multiple specialists at [facility] before finalizing the plan. The above recommendations are not final. ID coverage changes frequently. Use the on-call schedule to find out who is covering your facility. Then, contact ID for updated recommendations. History of Present Illness History of Present Illness The patient was admitted for a clogged SPT. Workup revealed gastric wall thickening. The patient was seen by GI and they were concerned about emphysemtous gastritis. The patient is being treated with daptomycin, cefepime and metronidazole. The patient currently reports no current abdominal pain. Allergies Allergy/AdvReac Type Severity Reaction Status Date / Time iodine Allergy Intermediate A Verified 09/23/23 09:30 TEEN-SKIN CONTACT BURNED THE SKIN-FELT LIKE ON FIRE adhesive Allergy Mild ADHESIVE Verified 09/23/23 09:30 TAPE RIPS SKIN APART clindamycin Allergy Mild RASH Verified 09/23/23 09:30 Iodinated Contrast Media Allergy Mild NAUSEA Verified 09/23/23 09:30 Penicillins Allergy Mild HIVES-ITCHING,HAS Verified 09/23/23 09:30 TOLERATED ANCEF IN PAST pineapple Allergy Mild "TONGUE Verified 09/23/23 09:30 WALKER AND CRACKS" vancomycin Allergy Mild hives Verified 09/23/23 09:30 aspirin AdvReac Mild GI Verified 09/23/23 09:30 SENSITIVITY Home Medications Medication Instructions Recorded Confirmed Type azelastine 137 mcg (0.1 %) nasal 2 spray intranasal AMHS 06/25/23 09/21/23 History spray aerosol magnesium oxide 400 mg PO QAM 06/25/23 09/21/23 History pantoprazole 40 mg tablet,delayed 40 mg PO DAILY 06/25/23 09/21/23 History release paroxetine HCl 10 mg tablet 20 mg PO DAILY 06/25/23 09/21/23 History cefdinir 300 mg capsule 300 mg PO AMHS 09/21/23 09/21/23 History fluticasone propionate 50 2 spray intranasal QAM 09/21/23 09/21/23 History mcg/actuation nasal spray,suspension Patient History Medical History Abnormal CT of the abdomen Slow to wake up after anesthesia History of frequent urinary tract infections Environmental allergies Little catheter in place suprapubic catheter Chronic allergic rhinitis Hx of Clostridium difficile infection dx years ago Hx MRSA infection stool, dx years ago Hx of migraines History of palpitations hx holter monitoring>no findings; f/u PCP Stage IV pressure ulcer of buttock IBS (irritable bowel syndrome) Anxiety and depression HTN (hypertension) Seasonal allergies Schatzki's ring Wheelchair bound Decubitus ulcer CHRONIC; FOLLOWS W/ WOUND CLINIC- right groin area currently Chronic back pain Osteoarthritis Kidney stones Neurogenic bladder Colostomy in place Chronic gum disease Tinnitus RT EAR Hearing deficit RT EAR History of febrile seizure X 1; CHILDHOOD Deep vein thrombosis > 10 YEARS AGO - TREATED W/ BLOOD THINNERS - R/T IMMOBILITY Dysphagia Spina bifida [employer] Paraplegia from the waist down-confined to wheelchair Surgical History History of suprapubic catheter History of esophagogastroduodenoscopy (EGD) History of sinus surgery History of surgery RT HIP WOUND DEBRIDEMENT W/ SKIN GRAFTING History of exploratory laparotomy History of incisional hernia repair X5 History of anesthesia reaction SLOW TO WAKE 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 History of cystoscopy W/ STONE EXTRACTION History of colonoscopy History of lithotripsy Status post myringotomy with insertion of tube History of tooth extraction History of esophageal dilatation Family History Other No family history of adverse response to anesthesia Social History Smoking Status: Former smoker Second Hand Exposure: No; Do You Dip or Chew Tobacco: No; Hx Alcohol Use: Yes Alcohol type: beer Hx Substance Use: No Preferred Language: Sami Communication Ability: Effective Bladder Changer Required: No Beliefs That Will Affect Care: Tenriism Tenriism Beliefs: Christian marital status: Single Current Living Situation: Alone Current Living Situation Comment: 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 How many Children do You have: 0 Other Information That Helps Us Care for You: Yes (Upcoming appointments) Feels Safe at Home: Yes Safety Concerns: Feels Safe At This Time Assistive Devices: Glasses and Wheelchair Review of Systems As reviewed in HPI; a complete ROS was otherwise negative Physical Exam Vitals: see EMR Exam limited due to constraints of telemedicine Gen/Constitutional: appears at stated age, NAD, nontoxic, sitting up in bed Head: AT, NC, no supplemental oxygen in place Eyes: pupils equal, sclera anicteric, EOMI, no conjunctival injection ENT: MMM, trachea midline, hearing grossly normal Card: appears to be well-perfused Resp: not tachypneic, nml effort, symmetric chest rise, no accessory muscle use Derm: no visible diaphoresis, no visible rash, no visible jaundice Neuro: AAO, speaking in full sentences, speech intelligible Results & Data Vital Signs (Past 12 Hours) Vital Signs Temp Pulse Resp BP Pulse Ox O2 Del Method 09/24/23 06:21 36.9 C 81 16 117/66 95 Room Air Laboratory Results Reviewed; see EMR Diagnostic Findings Reviewed; see EMR
[2023-09-24] MEDS: oxyBUTYnin chloride 5 MG TAB PO SCH ×2 (14:37→19:57)
[2023-09-24] MEDS: DAPTOmycin 225 MG in SYRINGE 0 ML IV SCH (15:06)
--- NOTE | 2023-09-24 15:25 | Hospitalist Progress Note ---
Date of Service September 24, 2023 Assessment & Plan (1) Complicated UTI (urinary tract infection): Plan: POSSIBLE UTI Suprapubic catheter and left percutaneous nephrostomy related UTI recurrent UTIs secondary to neurogenic bladder secondary to spina bifida status post suprapubic catheter placement/hx staghorn calculi as per records/left hydronephrosis status post PCNL, Failed outpatient treatment Urine culture: More than 3 organisms, recommend recollection Repeat urine culture: Pending Blood cultures: Negative so far On IV cefepime ID consulted- awaiting recommendations ABDOMINAL PAIN, EMPHYSEMATOUS GASTRITIS History of GERD Protonix IV twice daily GI consulted Status post EGD: Impression: Emphysematous gastritis. Recommendation: Discharge pt to floor. NPO for today; can consider clears tomorrow. PPI gtt. Broad spectrum abx to include strep viridans and anaerobic coverage. Surgery consult. Avoid NSAIDs, steroids. General surgery consulted: No indication for surgery at this time Monitor closely Continued on daptomycin plus cefepime plus Flagyl, as per GI recommendations ID consulted GI planning to order CT angiogram Advance diet per GI HYPOKALEMIA secondary to transient diarrhea illness Resolved history of colostomy chronic anemia, hemoglobin at baseline chronic decubitus wound -Wound care consult anxiety/mood disorder, at baseline past tobacco abuse History of VRE DVT prophylaxis per Lovenox subcu Full code Disposition Lives at home Patient's brother helping with patient's care at home Admission and Anticipated Discharge Date Admission Date: September 21, 2023 Subjective Follow-up for UTI, in the setting of suprapubic catheter, nephrostomy tube, emphysematous gastritis, etc. Seen resting in bed, comfortable, not in distress Feels okay overall No abdominal pain, requesting to advance diet Reporting bladder spasms, mild suprapubic catheter leakage Requesting for his home Myrbetriq to be ordered-explained this is nonformulary, requested brother to bring in patient's medication No other new symptoms Review of Systems Review of Systems: all noted and negative except for above Physical Exam Physical Exam: General- oriented x 3, not in distress, speaks in sentences with no effort or accessory muscle use Eyes- anicteric Neck- no JVD Lungs- clear breath sounds bilaterally, no rales/wheezes Heart- normal rate, regular rhythm; no murmurs Abdomen- normal bowel sounds, nondistended, soft, nontender Suprapubic catheter in place: Draining yellow, clear urine Nephrostomy tube also in place: Draining yellow, clear urine Extremities- no pretibial edema, no calf tenderness Neuro- alert, oriented x 3; no new gross focal neurologic deficits Skin- warm & dry Results & Data Results & Data Vital Signs (Past 12 Hours) Vital Signs Temp Pulse Resp BP Pulse Ox O2 Del Method 09/24/23 06:21 36.9 C 81 16 117/66 95 Room Air all noted and reviewed including below
[2023-09-24] MEDS: ACETAMINOPHEN 325 MG TAB PO PRN (16:33)
[2023-09-24] MEDS ORDERED: methylPREDNISolone 40 MG in SYRINGE 0 ML IV ONE (17:15)
[2023-09-24] MEDS ORDERED: diphenhydrAMINE 50 MG/ML VIAL IV ONE (17:15)
[2023-09-24] MEDS ORDERED: OPTIRAY 320 125ml IV ONE (18:09)
--- NOTE | 2023-09-24 19:00 | CT Scan Report ---
CT angio abdomen pelvis w con CLINICAL HISTORY: 68 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 Acute generalized abdominal melony n COMPARISON STUDY: CT 09/22/2023, MRI pelvis 01/24/2022, CT abdomen and pelvis 03/30/2021 TECHNIQUE: Following the IV administration of 117 cc of Optiray, CT angiogram of the abdomen and pelv is was performed from the lung bases the proximal femora. Images are reviewed in the axial, sagittal, and coronal planes. 3-D MIPS images are created and assessed. All measurements were obtained accordi ng to NASCET criteria. IV contrast was administered without complication. A dose lowering technique was utilized adhering to the principles of ALARA. CT DOSE: 867.51 mGy.cm FINDINGS: CTA: The heart is mildly enlarged. Trace pericardial effusion. Mildly decreased AP dimension of the upper abdominal aorta at the level of the diaphragmatic hiatus. No abdominal aortic aneurysm or dissection. Mild atherosclerosis. There is patency of the celiac trunk, superior and inferior mesenteric and coretta ateral renal arteries. No acute hemorrhage or active extravasation identified. CT: Trace left pleural effusion. Chronic left hemidiaphragmatic elevation with mild dependent subsegmenta l bibasilar atelectasis. Unremarkable spleen, moderately atrophic pancreas and left adrenal gland. Ri ght adrenal gland myolipoma again noted. Unchanged appearance of the liver with subcentimeter hypoden sities of the left hepatic lobe, likely benign. Unremarkable gallbladder. Cortical thinning of the kidneys with bilateral cysts up to 3.4 cm on the right. A left-sided percuta neous nephrostomy catheter is noted. Mild dilation of the left renal pelvis with urothelial thickenin g again noted. Dependent 7 mm calculus within the left ureteropelvic junction. There are at least 6 l arge calculi within the left ureter measuring up to approximately 10 mm. No significant hydronephrosi s. Decompressed bladder with Little catheter in place. Prostamegaly with coarse prostatic calcificatio ns. No lymphadenopathy. There is improved appearance of the stomach with decreased air within the wall of the gastric fundus- or cardiac distribution. Gastric distention no longer present. There is persistent gastric wall thick ening with mild perigastric inflammation, greatest adjacent to the fundus. No hiatal hernia or-or vol vulus. Contrast noted within the rectum. The descending left-sided colostomy with parastomal fat fill ed hernia again noted. Spinal dysraphism with diffuse muscular atrophy again noted. Chronic displaced negative right proximal femoral fracture. Demineralized appearance of the bones. No acute fracture i dentified. Sacral decubitus ulcer is noted with cellulitis. No abscess. Chronic findings of a distal tuberosity may be related to chronic osteomyelitis. No acute osteomyelitis identified. Ventral abdomi nal wall herniorrhaphy. IMPRESSION: 1. Improving findings related to the previously described emphysematous gastritis. There is decreased gastric distention, improving gastric wall thickening with adjacent perigastric inflammatory strandi ng. 2. No hiatal hernia or gastric volvulus 3. Sacral decubitus ulcer without abscess. 4. Left-sided percutaneous nephrostomy catheter in place with numerous left ureteral calculi redemons trated. There is dilation of the left renal pelvis without significant hydronephrosis. 5. Trace left pleural effusion with chronic left hemidiaphragm elevation. 6. Unremarkable CTA portion of the study. 7. Additional findings as above. ACT 112: Negative or not required by law. The above report was generated using voice recognition software. It may contain grammatical, syntax o r spelling errors. Electronically signed by: Beau Dennis M.D. 09/24/2023 6:59 PM
[2023-09-24] MEDS: PROMETHAZINE HCL 12.5 MG in SODIUM CHLORIDE 0.9% 50 ML IV PRN (20:20)
[2023-09-25] MEDS: PANTOprazole 40 MG in DEXTROSE 5% MINI-B 100 ML IV SCH ×5 (01:19→21:48)
[2023-09-25] MEDS: metroNIDAZOLE 500 MG/100 ML BAG IV SCH ×3 (01:20→17:55)
[2023-09-25] MEDS: CEFEPIME 2,000 MG in SYRINGE 0 ML IV SCH ×3 (01:24→17:55)
[2023-09-25 06:34] LABS: Basophils # (auto) 0.01 K/uL (0.00-0.20); Basophils % (auto) 0.2 %; Hematocrit (blood only) 37.6 % (42.0-52.0); Hemoglobin 11.5 g/dl (14.0-18.0); Immature Granulocytes # (auto) 0.03 K/uL (0.01-0.20); Immature Granulocytes % (auto) 0.7 %; Lymphocytes # (auto) 0.67 K/uL (1.20-3.40); Lymphocytes % (auto) 15.2 %; Mean Corpuscular Hemoglobin 23.8 pg (25.0-34.0); Mean Corpuscular Hgb Conc 30.6 g/dL (32.0-36.0); Mean Corpuscular Volume 77.8 fL (80.0-100.0); Mean Platelet Volume 8.3 fL (9.4-12.4); Monocytes # (auto) 0.17 K/uL (0.11-0.59); Monocytes % (auto) 3.9 %; Neutrophils # (auto) 3.53 K/uL (1.40-6.50); Platelet Count 360 K/uL (130-400); RDW Coefficient of Variation 15.9 % (11.5-14.5); RDW Standard Deviation 45.1 fL (36.4-46.3); Red Blood Count 4.83 M/uL (4.70-6.10); White Blood Count 4.41 K/ul (4.8-10.8)
[2023-09-25 06:51] LABS: BUN Creatinine Ratio 19.2 (10-20); Calcium 8.5 mg/dl (8.6-10.3); Creatinine Clr Calc Pharmacy 110.7 ml/min; Est GFR (African American) 125.2 ml/min; Magnesium 1.8 mg/dl (1.7-2.4); Phosphorus 3.3 mg/dl (2.5-4.9); Potassium 3.8 mmol/L (3.5-5.1)
[2023-09-25] MEDS: AZELASTINE HCL 0.1% NASAL 200 SPRAYS/27,400 MCG BTL SCH ×2 (08:48→21:52)
[2023-09-25] MEDS: FLUTICASONE PROPIONATE NA SPR 16 GM BTL SCH (08:48)
[2023-09-25] MEDS: oxyBUTYnin chloride 5 MG TAB PO SCH ×2 (08:49→21:48)
--- NOTE | 2023-09-25 11:00 | Hospitalist Progress Note ---
Date of Service September 25, 2023 Assessment & Plan (1) Complicated UTI (urinary tract infection): Plan: POSSIBLE UTI Suprapubic catheter and left percutaneous nephrostomy related UTI recurrent UTIs secondary to neurogenic bladder secondary to spina bifida status post suprapubic catheter placement/hx staghorn calculi as per records/left hydronephrosis status post PCNL, Failed outpatient treatment Urine culture: More than 3 organisms, recommend recollection Repeat urine culture: as above Blood cultures: Negative so far On IV cefepime ID consulted- awaiting recommendations ABDOMINAL PAIN, EMPHYSEMATOUS GASTRITIS History of GERD Protonix IV twice daily GI consulted Status post EGD: Impression: Emphysematous gastritis. Recommendation: Discharge pt to floor. NPO for today; can consider clears tomorrow. PPI gtt. Broad spectrum abx to include strep viridans and anaerobic coverage. Surgery consult. Avoid NSAIDs, steroids. General surgery consulted: No indication for surgery at this time Monitor closely Continued on daptomycin plus cefepime plus Flagyl, as per GI recommendations ID consulted GI planning ordered CT angiogram abd./pelvis - 1. Improving findings related to the previously described emphysematous gastritis. There is decreased gastric distention, improving gastric wall thickening with adjacent perigastric inflammatory stranding. 2. No hiatal hernia or gastric volvulus 3. Sacral decubitus ulcer without abscess. 4. Left-sided percutaneous nephrostomy catheter in place with numerous left ureteral calculi redemonstrated. There is dilation of the left renal pelvis without significant hydronephrosis. 5. Trace left pleural effusion with chronic left hemidiaphragm elevation. 6. Unremarkable CTA portion of the study. Advance diet per GI HYPOKALEMIA secondary to transient diarrhea illness Resolved history of colostomy chronic anemia, hemoglobin at baseline chronic decubitus wound -Wound care consult anxiety/mood disorder, at baseline past tobacco abuse History of VRE DVT prophylaxis per Lovenox subcu Full code Disposition Lives at home Patient's brother helping with patient's care at home Admission and Anticipated Discharge Date Admission Date: September 21, 2023 Subjective Follow-up for UTI, in the setting of suprapubic catheter, nephrostomy tube, emphysematous gastritis, etc. Seen resting in bed and eating, comfortable, not in distress No abdominal pain, fever, chills, chest pain, shortness of breath. no fever or chills. Reports headache Surgery and GI consulted ID consulted Review of Systems Review of Systems: All systems reviewed & are unremarkable except as noted in Subjective Physical Exam Physical Exam: General- WD/WN in NAD Eyes- anicteric Neck- no JVD Lungs- clear breath sounds bilaterally, no rales/wheezes Heart- normal rate, regular rhythm; no murmurs Abdomen- normal bowel sounds, nondistended, soft, nontender Suprapubic catheter in place: Draining yellow, clear urine Nephrostomy tube also in place: Draining yellow, clear urine Extremities- no pretibial edema, no calf tenderness Neuro/Psych - alert, oriented x 3; speech fluent, no facial asymmetry, answers appropriately, moves BUE Skin- warm & dry, pale Results & Data Results & Data Vital Signs (Past 12 Hours) Vital Signs Temp Pulse Resp BP Pulse Ox O2 Del Method 09/25/23 07:21 36.5 C 72 16 125/72 99 Room Air Laboratory Results 09/25/23 Range/Units 06:16 WBC 4.41 L (4.8-10.8) K/ul RBC 4.83 (4.70-6.10) M/uL Hgb 11.5 L (14.0-18.0) g/dl Hct 37.6 L (42.0-52.0) % MCV 77.8 L (80.0-100.0) fL MCH 23.8 L (25.0-34.0) pg MCHC 30.6 L (32.0-36.0) g/dL RDW Std Deviation 45.1 (36.4-46.3) fL RDW Coeff of Sebastian 15.9 H (11.5-14.5) % Plt Count 360 (130-400) K/uL MPV 8.3 L (9.4-12.4) fL Immature Gran % (Auto) 0.7 % Neut % (Auto) 80.0 % Lymph % (Auto) 15.2 % [place] % (Auto) 3.9 % Eos % (Auto) 0.0 % Baso % (Auto) 0.2 % Neut # (Auto) 3.53 (1.40-6.50) K/uL Lymph # (Auto) 0.67 L (1.20-3.40) K/uL [place] # (Auto) 0.17 (0.11-0.59) K/uL Eos # (Auto) 0.00 (0.00-0.50) K/uL Baso # (Auto) 0.01 (0.00-0.20) K/uL Immature Gran # (Auto) 0.03 (0.01-0.20) K/uL Sodium 139 (136-145) mmol/L Potassium 3.8 (3.5-5.1) mmol/L Chloride 104 (98-107) mmol/L Carbon Dioxide 29 (21-32) mmol/L Anion Gap 6 (3-11) BUN 10 (6-23) mg/dl Creatinine 0.52 L (0.6-1.4) mg/dl Est Cr Clr Drug Dosing 110.7 ml/min Est GFR ( Amer) 125.2 ml/min Est GFR (Non-Af Amer) 108.0 ml/min BUN/Creatinine Ratio 19.2 (10-20) Glucose 140 H (70-99(Fasting)) mg/dl Calcium 8.5 L (8.6-10.3) mg/dl Phosphorus 3.3 (2.5-4.9) mg/dl Magnesium 1.8 (1.7-2.4) mg/dl Medications Administered Current Inpatient Medications Acetaminophen (Acetaminophen 325 Mg Tab) 650 mg PO Q4H PRN PRN Reason: pain/fever Stop: 10/21/23 10:00 Last Admin: 09/24/23 16:33 Dose: 650 mg Azelastine HCl (Azelastine Hcl 0.1% Nasal 200 Sprays/27,400 Mcg Btl) 2 sprays NA AMHS [facility] Stop: 10/21/23 10:00 Last Admin: 09/25/23 08:48 Dose: 2 sprays Fluticasone Propionate (Fluticasone Propionate Na Spr 16 Gm Btl) 2 sprays NA QAM [facility] Stop: 10/21/23 10:00 Last Admin: 09/25/23 08:48 Dose: 2 sprays Promethazine HCl 12.5 mg/ (Sodium Chloride) 50.5 mls @ 202 mls/hr IV Q6H PRN PRN Reason: Nausea And Vomiting Stop: 10/21/23 22:53 Last Infusion: 09/24/23 20:50 Dose: Infused Pantoprazole Sodium 40 mg/ (Dextrose) 100 mls @ 20 mls/hr IV Q5H [facility] Stop: 10/23/23 11:44 Last Admin: 09/25/23 06:20 Dose: 8 mg/hr, 20 mls/hr Daptomycin 225 mg/ Syringe 4.5 mls @ 2.25 mls/min IV Q24H [facility]; Protocol Stop: 10/03/23 11:59 Last Admin: 09/24/23 15:06 Dose: 2.25 mls/min Metronidazole (Flagyl) 500 mg in 100 mls @ 100 mls/hr IV Q8H [facility]; Protocol Stop: 10/03/23 13:29 Last Infusion: 09/25/23 10:51 Dose: Infused Cefepime HCl 2,000 mg/ Syringe 20 mls @ 5 mls/min IV Q8H [facility]; Protocol Stop: 10/03/23 17:29 Last Admin: 09/25/23 10:05 Dose: 5 mls/min Oxybutynin Chloride (Oxybutynin Chloride 5 Mg Tab) 5 mg PO BID [facility] Stop: 10/24/23 10:29 Last Admin: 09/25/23 08:49 Dose: 5 mg Paroxetine HCl (Paroxetine Hcl 20 Mg Tab) 20 mg PO DAILY [facility] Stop: 10/21/23 10:00 Last Admin: 09/23/23 08:20 Dose: Not Given Phenazopyridine HCl (Phenazopyridine Hcl 100 Mg Tab) 100 mg PO TID PRN PRN Reason: Bladder pain Stop: 10/21/23 15:58 Last Admin: 09/21/23 16:51 Dose: 100 mg Polyethylene Glycol (Polyethylene (Miralax) 17 Gm Pack) 17 gm PO DAILY PRN PRN Reason: Constipation Stop: 10/21/23 18:19 Sodium Chloride (Sodium Chloride 0.65% Na Soln 45 Ml ([place])) 1 sprays NA PRN PRN PRN Reason: Nasal Congestion Stop: 10/21/23 12:39
--- NOTE | 2023-09-25 11:06 | Surgery Progress Note ---
Date of Service September 25, 2023 Assessment & Plan (1) Abnormal CT of the abdomen: (2) Ischemia, bowel: Plan 68-year-old gentleman with multiple medical problems presents with what appears to be bowel ischemia in the stomach.'s unclear etiology. It does not appear to be transmural and there is no evidence of perforation. He has stable and normal vital signs. He does not have fever. His white count is normal. His abdomen is soft with no tenderness to palpation. He continues to state he is feeling improved from the other day. He is on broad-spectrum antibiotics and Protonix. His CTA of the abdomen pelvis demonstrates normal vasculature, and improved findings around the fundus of the stomach. Given his clinical presentation and course since the EGD, we will continue to observe him for now. If he were to show signs of worsening or sepsis, he will need to be transferred to a tertiary care center such as [facility] or [place] for possible surgical intervention on his stomach. His diet may be advanced as tolerated. Please call with any new or concerning symptoms. Admission and Anticipated Discharge Date Admission Date: September 21, 2023 Subjective Continues to feel better today. Asking for more food. He is tolerating his diet well. Denies nausea or vomiting. Physical Exam Gastrointestinal (Abdomen): Inspection/Auscultation: abdomen normal to inspection; abdomen not distended Percussion/Palpation: abdomen soft; abdomen nontender, no guarding and abdomen not rigid Results & Data Vital Signs (Past 12 Hours) Vital Signs Temp Pulse Resp BP Pulse Ox O2 Del Method 09/25/23 07:21 36.5 C 72 16 125/72 99 Room Air Laboratory Results 09/25/23 Range/Units 06:16 WBC 4.41 L (4.8-10.8) K/ul RBC 4.83 (4.70-6.10) M/uL Hgb 11.5 L (14.0-18.0) g/dl Hct 37.6 L (42.0-52.0) % MCV 77.8 L (80.0-100.0) fL MCH 23.8 L (25.0-34.0) pg MCHC 30.6 L (32.0-36.0) g/dL RDW Std Deviation 45.1 (36.4-46.3) fL RDW Coeff of Sebastian 15.9 H (11.5-14.5) % Plt Count 360 (130-400) K/uL MPV 8.3 L (9.4-12.4) fL Immature Gran % (Auto) 0.7 % Neut % (Auto) 80.0 % Lymph % (Auto) 15.2 % Forest % (Auto) 3.9 % Eos % (Auto) 0.0 % Baso % (Auto) 0.2 % Neut # (Auto) 3.53 (1.40-6.50) K/uL Lymph # (Auto) 0.67 L (1.20-3.40) K/uL Forest # (Auto) 0.17 (0.11-0.59) K/uL Eos # (Auto) 0.00 (0.00-0.50) K/uL Baso # (Auto) 0.01 (0.00-0.20) K/uL Immature Gran # (Auto) 0.03 (0.01-0.20) K/uL Sodium 139 (136-145) mmol/L Potassium 3.8 (3.5-5.1) mmol/L Chloride 104 (98-107) mmol/L Carbon Dioxide 29 (21-32) mmol/L Anion Gap 6 (3-11) BUN 10 (6-23) mg/dl Creatinine 0.52 L (0.6-1.4) mg/dl Est Cr Clr Drug Dosing 110.7 ml/min Est GFR ( Amer) 125.2 ml/min Est GFR (Non-Af Amer) 108.0 ml/min BUN/Creatinine Ratio 19.2 (10-20) Glucose 140 H (70-99(Fasting)) mg/dl Calcium 8.5 L (8.6-10.3) mg/dl Phosphorus 3.3 (2.5-4.9) mg/dl Magnesium 1.8 (1.7-2.4) mg/dl Diagnostic Findings CT angio abdomen pelvis w con CLINICAL HISTORY: 68 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 Acute generalized abdominal pain COMPARISON STUDY: CT 09/22/2023, MRI pelvis 01/24/2022, CT abdomen and pelvis 03/30/2021 TECHNIQUE: Following the IV administration of 117 cc of Optiray, CT angiogram of the abdomen and pelvis was performed from the lung bases the proximal femora. Im ages are reviewed in the axial, sagittal, and coronal planes. 3-D MIPS images are created and assessed. All measurements were obtained according to NASCET criteria. IV contrast was administered without complication. A dose lowering technique was utilized adhering to the principles of ALARA. CT DOSE: 867.51 mGy.cm FINDINGS: CTA: The heart is mildly enlarged. Trace pericardial effusion. Mildly decreased AP dimension of the upper abdominal aorta at the level of the diaphragmatic hiatus. No abdominal aortic aneurysm or dissection. Mild atherosclerosis. There is patency of the celiac trunk, superior and inferior mesenteric and bilateral renal arteries. No acute hemorrhage or active extravasation identified. CT: Trace left pleural effusion. Chronic left hemidiaphragmatic elevation with mild dependent subsegmental bibasilar atelectasis. Unremarkable spleen, moderately atrophic pancreas and left adrenal gland. Right adrenal gland myolipoma again noted. Unchanged appearance of the liver with subcentimeter hypodensities of the left hepatic lobe, likely benign. Unremarkable gallbladder. Cortical thinning of the kidneys with bilateral cysts up to 3.4 cm on the right. A left-sided percutaneous nephrostomy catheter is noted. Mild dilation of the left renal pelvis with urothelial thickening again noted. Dependent 7 mm calculus within the left ureteropelvic junction. There are at least 6 large calculi within the left ureter measuring up to approximately 10 mm. No significant hydronephrosis. Decompressed bladder with Little catheter in place. Prostamegaly with coarse prostatic calcifications. No lymphadenopathy. There is improved appearance of the stomach with decreased air within the wall of the gastric fundus-or cardiac distribution. Gastric distention no longer present. There is persistent gastric wall thickening with mild perigastric inflammation, greatest adjacent to the fundus. No hiatal hernia or-or volvulus. Contrast noted within the rectum. The descending left-sided colostomy with parastomal fat filled hernia again noted. Spinal dysraphism with diffuse muscular atrophy again noted. Chronic displaced negative right proximal femoral fracture. Demineralized appearance of the bones. No acute fracture identified. Sacral decubitus ulcer is noted with cellulitis. No abscess. Chronic findings of a distal tuberosity may be related to chronic osteomyelitis. No acute oste omyelitis identified. Ventral abdominal wall herniorrhaphy. IMPRESSION: 1. Improving findings related to the previously described emphysematous gastritis. There is decreased gastric distention, improving gastric wall thickening with adjacent perigastric inflammatory stranding. 2. No hiatal hernia or gastric volvulus 3. Sacral decubitus ulcer without abscess. 4. Left-sided percutaneous nephrostomy catheter in place with numerous left ureteral calculi redemonstrated. There is dilation of the left renal pelvis without significant hydronephrosis. 5. Trace left pleural effusion with chronic left hemidiaphragm elevation. 6. Unremarkable CTA portion of the study. 7. Additional findings as above. ACT 112: Negative or not required by law. The above report was generated using voice recognition software. It may contain grammatical, syntax or spelling errors. Electronically signed by: Beau Dennis M.D. 09/24/2023 6:59 PM
[2023-09-25] MEDS: DAPTOmycin 225 MG in SYRINGE 0 ML IV SCH (11:42)
[2023-09-25] MEDS: ACETAMINOPHEN 325 MG TAB PO PRN (11:42)
--- NOTE | 2023-09-25 13:11 | Gastroenterology Progress Note ---
Date of Service September 25, 2023 Assessment & Plan (1) Emphysematous gastritis: Plan: Improving as evidenced by normalized WBC and yesterday's CTA w gastric wall thickness returning to normal. Plan Continue antibiotics. Advance diet. Length of antibiotics per ID. GI will sign off. Please recall if questions/new symptoms. Admission and Anticipated Discharge Date Admission Date: September 21, 2023 Supervising Physician Co-Signing Physician Notes I performed a history and physical examination of the patient today, including specifically on physical exam - soft abdomen. I have discussed the patient's management with the advanced practitioner. Please refer to the nurse practitioner's note for the documented findings and plan of care. CTA negative with patent vessels. Emphysematous gastritis improved, etiology remains unclear.. Advance diet. PO PPI. Repeat EGD as OP in 3 months. Recall GI if needed. Subjective C/o mild headache, otherwise reports feeling well. No abd pain. On full liquids; asks to advance diet. Review of Systems Review of Systems: ROS: Gen: Denies weakness, fevers, weight loss; paraplegic Eyes: No eye redness, or pain, no recent vision changes Resp: No SOB, no cough Cardio: No palpitations/irregular beats, no chest pain GI: No abdominal pain, no nausea/vomiting : Denies pain on urination Skin: No jaundice, itching or new rashes Physical Exam Eyes: PERRL, conjunctivae normal, anicteric sclerae ENMT: external ear and nose normal, oropharynx normal Neck: trachea midline, no thyromegaly Respiratory: normal respiratory effort, lungs clear to auscultation Cardiovascular: RRR, no murmur, no edema Gastrointestinal (Abdomen): normal bowel sounds, soft, nontender, no hepatosplenomegaly Ostomy in place, draining thick brown feces. No blood or black BMs. Skin: no jaundice Neurologic: paraplegic Psychiatric: A+Ox3, euthymic affect Lymphatic: no cervical or axillary lymphadenopathy Results & Data Vital Signs (Past 12 Hours) Vital Signs Temp Pulse Resp BP Pulse Ox O2 Del Method 09/25/23 07:21 36.5 C 72 16 125/72 99 Room Air Laboratory Results WBC 4.4, Hb 11.5, Hct 37.6, plts 360, Na 139, K 3.8, Cl 104, Co2 29, BUN 10, Cr 0.52, glucose 140. Diagnostic Findings CTA abd/pelvis 09/24/22: 1. Improving findings related to the previously described emphysematous gastritis. There is decreased gastric distention, improving gastric wall thickening with adjacent perigastric inflammatory stranding. 2. No hiatal hernia or gastric volvulus 3. Sacral decubitus ulcer without abscess. 4. Left-sided percutaneous nephrostomy catheter in place with numerous left ureteral calculi redemonstrated. There is dilation of the left renal pelvis without significant hydronephrosis. 5. Trace left pleural effusion with chronic left hemidiaphragm elevation. 6. Unremarkable CTA portion of the study. 7. Additional findings as above.
[2023-09-25] MEDS: traMADol HCL 50 MG TABLET PO PRN (16:14)
[2023-09-25] MEDS ORDERED: MoRPHine SULFATE 2 MG/ML CARP IV STA (23:07)
[2023-09-25] MEDS ORDERED: traMADol HCL 50 MG TABLET PO STA (23:45)
[2023-09-26] MEDS: metroNIDAZOLE 500 MG/100 ML BAG IV SCH ×3 (02:57→18:21)
[2023-09-26] MEDS: CEFEPIME 2,000 MG in SYRINGE 0 ML IV SCH ×3 (02:57→17:58)
[2023-09-26] MEDS: PANTOprazole 40 MG in DEXTROSE 5% MINI-B 100 ML IV SCH ×2 (04:07→08:20)
[2023-09-26] MEDS: PROMETHAZINE HCL 12.5 MG in SODIUM CHLORIDE 0.9% 50 ML IV PRN ×2 (04:21→16:19)
[2023-09-26 06:01] LABS: Hematocrit (blood only) 33.5 % (42.0-52.0); Hemoglobin 10.7 g/dl (14.0-18.0); Mean Corpuscular Hemoglobin 24.3 pg (25.0-34.0); Mean Corpuscular Hgb Conc 31.9 g/dL (32.0-36.0); Mean Platelet Volume 8.6 fL (9.4-12.4); Platelet Count 336 K/uL (130-400); RDW Coefficient of Variation 16.2 % (11.5-14.5); RDW Standard Deviation 44.1 fL (36.4-46.3); Red Blood Count 4.41 M/uL (4.70-6.10); White Blood Count 7.54 K/ul (4.8-10.8)
[2023-09-26 06:39] LABS: Alanine Aminotransferase < 3 U/L (7-52); Albumin Globulin Ratio 0.9 (0.9-2); Albumin Level 2.8 gm/dl (3.4-5.0); Alkaline Phosphatase 46 U/L (34-104); Anion Gap 5 (3-11); Aspartate Aminotransferase 6 U/L (13-39); BUN Creatinine Ratio 22.6 (10-20); Bilirubin,Total 0.4 mg/dl (0.2-1.0); Blood Urea Nitrogen 14 mg/dl (6-23); Carbon Dioxide 26 mmol/L (21-32); Chloride 107 mmol/L (98-107); Creatinine Clr Calc Pharmacy 92.8 ml/min; Est GFR (African American) 116.5 ml/min; Est GFR (Non-African American) 100.5 ml/min; Globulin 3.1 gm/dl (2.5-4.0); Glucose 113 mg/dl (70-99(Fasting)); Magnesium 1.7 mg/dl (1.7-2.4); Phosphorus 2.4 mg/dl (2.5-4.9); Potassium 2.9 mmol/L (3.5-5.1); Sodium 138 mmol/L (136-145); Total Protein 5.9 gm/dl (6.0-8.3)
[2023-09-26] MEDS: oxyBUTYnin chloride 5 MG TAB PO SCH ×2 (08:32→20:06)
[2023-09-26] MEDS: FLUTICASONE PROPIONATE NA SPR 16 GM BTL SCH (08:32)
[2023-09-26] MEDS: AZELASTINE HCL 0.1% NASAL 200 SPRAYS/27,400 MCG BTL SCH ×2 (08:32→20:05)
[2023-09-26] MEDS ORDERED: POTASSIUM PHOS 3 MMOL/1 ML INFUSION IV STA (09:07)
--- NOTE | 2023-09-26 09:09 | Hospitalist Progress Note ---
Date of Service September 26, 2023 Assessment & Plan (1) Complicated UTI (urinary tract infection): Plan: POSSIBLE UTI Suprapubic catheter and left percutaneous nephrostomy related UTI recurrent UTIs secondary to neurogenic bladder secondary to spina bifida status post suprapubic catheter placement/hx staghorn calculi as per records/left hydronephrosis status post PCNL, Failed outpatient treatment Urine culture: More than 3 organisms, recommend recollection Repeat urine culture: as above Blood cultures: Negative so far On IV cefepime ID consulted- stop dapto and obtain UA/ cultx from nephrostomy tube ABDOMINAL PAIN, EMPHYSEMATOUS GASTRITIS History of GERD Protonix IV twice daily -> switched to PO PPI GI consulted Status post EGD: Impression: Emphysematous gastritis. Recommendation: Discharge pt to floor. NPO for today; can consider clears tomorrow. PPI gtt. Broad spectrum abx to include strep viridans and anaerobic coverage. Surgery consult. Avoid NSAIDs, steroids. General surgery consulted: No indication for surgery at this time Monitor closely Continued on daptomycin plus cefepime plus Flagyl, as per GI recommendations ID consulted - stopping dapto, as above GI ordered CT angiogram abd./pelvis - 1. Improving findings related to the previously described emphysematous gastritis. There is decreased gastric distention, improving gastric wall thickening with adjacent perigastric inflammatory stranding. 2. No hiatal hernia or gastric volvulus 3. Sacral decubitus ulcer without abscess. 4. Left-sided percutaneous nephrostomy catheter in place with numerous left ureteral calculi redemonstrated. There is dilation of the left renal pelvis without significant hydronephrosis. 5. Trace left pleural effusion with chronic left hemidiaphragm elevation. 6. Unremarkable CTA portion of the study. Advanced diet per GI -> however pt now developed nausea and vomiting, made NPO and contacted GI HYPOKALEMIA secondary to transient diarrhea illness replace and monitor history of colostomy chronic anemia, hemoglobin at baseline chronic decubitus wound ,stage IV pressure ulcer, POA - pt follows with wound care as outpt -Wound care consult placed anxiety/mood disorder, at baseline past tobacco abuse History of VRE DVT prophylaxis per Lovenox subcu Full code Disposition Lives at home Patient's brother helping with patient's care at home Admission and Anticipated Discharge Date Admission Date: September 21, 2023 Subjective Follow-up for UTI, in the setting of suprapubic catheter, nephrostomy tube, emphysematous gastritis, etc. Yesterday his diet was advanced to regular, pt had meatloaf for dinner, now with nausea and vomiting Currently sitting up in bed in NAD No abdominal pain, fever, chills, chest pain, shortness of breath. no fever or chills. Surgery and GI consulted ID consulted and discussed w/ today - plan to stop dapto, and repeat UA from nephrostomy tube Contacted GI re: nausea/ vomiting, also made pt NPO for now Review of Systems Review of Systems: All systems reviewed & are unremarkable except as noted in Subjective Physical Exam Physical Exam: General- WD/WN in NAD Eyes- anicteric Neck- no JVD Lungs- clear breath sounds bilaterally, no rales/wheezes Heart- normal rate, regular rhythm; no murmurs Abdomen- normal bowel sounds, nondistended, soft, nontender Suprapubic catheter in place: Draining yellow, clear urine Nephrostomy tube also in place: Draining yellow, clear urine Extremities- no pretibial edema, no calf tenderness Neuro/Psych - alert, oriented x 3; speech fluent, no facial asymmetry, answers appropriately, moves BUE Skin- warm & dry, pale Results & Data Results & Data Vital Signs (Past 12 Hours) Vital Signs Temp Pulse Resp BP Pulse Ox O2 Del Method 09/26/23 07:12 36.5 C 73 16 110/64 98 Room Air 09/25/23 23:09 36.6 C 80 18 112/61 99 Room Air Laboratory Results 09/26/23 Range/Units 05:34 WBC 7.54 (4.8-10.8) K/ul RBC 4.41 L (4.70-6.10) M/uL Hgb 10.7 L (14.0-18.0) g/dl Hct 33.5 L (42.0-52.0) % MCV 76.0 L (80.0-100.0) fL MCH 24.3 L (25.0-34.0) pg MCHC 31.9 L (32.0-36.0) g/dL RDW Std Deviation 44.1 (36.4-46.3) fL RDW Coeff of Sebastian 16.2 H (11.5-14.5) % Plt Count 336 (130-400) K/uL MPV 8.6 L (9.4-12.4) fL Sodium 138 (136-145) mmol/L Potassium 2.9 L D (3.5-5.1) mmol/L Chloride 107 (98-107) mmol/L Carbon Dioxide 26 (21-32) mmol/L Anion Gap 5 (3-11) BUN 14 (6-23) mg/dl Creatinine 0.62 (0.6-1.4) mg/dl Est Cr Clr Drug Dosing 92.8 ml/min Est GFR ( Amer) 116.5 ml/min Est GFR (Non-Af Amer) 100.5 ml/min BUN/Creatinine Ratio 22.6 H (10-20) Glucose 113 H (70-99(Fasting)) mg/dl Calcium 8.0 L (8.6-10.3) mg/dl Phosphorus 2.4 L (2.5-4.9) mg/dl Magnesium 1.7 (1.7-2.4) mg/dl Total Bilirubin 0.4 (0.2-1.0) mg/dl AST 6 L (13-39) U/L ALT < 3 L (7-52) U/L Alkaline Phosphatase 46 (34-104) U/L Total Protein 5.9 L (6.0-8.3) gm/dl Albumin 2.8 L (3.4-5.0) gm/dl Globulin 3.1 (2.5-4.0) gm/dl Albumin/Globulin Ratio 0.9 (0.9-2) Medications Administered Current Inpatient Medications Acetaminophen (Acetaminophen 325 Mg Tab) 650 mg PO Q4H PRN PRN Reason: pain/fever Stop: 10/21/23 10:00 Last Admin: 09/25/23 11:42 Dose: 650 mg Azelastine HCl (Azelastine Hcl 0.1% Nasal 200 Sprays/27,400 Mcg Btl) 2 sprays NA [facility] Stop: 10/21/23 10:00 Last Admin: 09/26/23 08:32 Dose: 2 sprays Fluticasone Propionate (Fluticasone Propionate Na Spr 16 Gm Btl) 2 sprays NA [facility] Stop: 10/21/23 10:00 Last Admin: 09/26/23 08:32 Dose: 2 sprays Promethazine HCl 12.5 mg/ (Sodium Chloride) 50.5 mls @ 202 mls/hr IV Q6H PRN PRN Reason: Nausea And Vomiting Stop: 10/21/23 22:53 Last Infusion: 09/26/23 05:50 Dose: Infused Daptomycin 225 mg/ Syringe 4.5 mls @ 2.25 mls/min IV Q24H LESLI; Protocol Stop: 10/03/23 11:59 Last Admin: 09/25/23 11:42 Dose: 2.25 mls/min Metronidazole (Flagyl) 500 mg in 100 mls @ 100 mls/hr IV Q8H LESLI; Protocol Stop: 10/03/23 13:29 Last Admin: 09/26/23 08:31 Dose: 100 mls/hr Cefepime HCl 2,000 mg/ Syringe 20 mls @ 5 mls/min IV Q8H LESLI; Protocol Stop: 10/03/23 17:29 Last Admin: 09/26/23 08:31 Dose: 5 mls/min Potassium Phosphate 21 mmol/ (Sodium Chloride) 507 mls @ 88 mls/hr IV ONE ONE Stop: 09/26/23 15:15 Oxybutynin Chloride (Oxybutynin Chloride 5 Mg Tab) 5 mg PO BID LESLI Stop: 10/24/23 10:29 Last Admin: 09/26/23 08:32 Dose: 5 mg Pantoprazole Sodium (Pantoprazole 40 Mg Tab) 40 mg PO BID [facility] Stop: 10/26/23 08:59 Paroxetine HCl (Paroxetine Hcl 20 Mg Tab) 20 mg PO DAILY LESLI Stop: 10/21/23 10:00 Last Admin: 09/23/23 08:20 Dose: Not Given Phenazopyridine HCl (Phenazopyridine Hcl 100 Mg Tab) 100 mg PO TID PRN PRN Reason: Bladder pain Stop: 10/21/23 15:58 Last Admin: 09/21/23 16:51 Dose: 100 mg Polyethylene Glycol (Polyethylene (Miralax) 17 Gm Pack) 17 gm PO DAILY PRN PRN Reason: Constipation Stop: 10/21/23 18:19 Sodium Chloride (Sodium Chloride 0.65% Na Soln 45 Ml ([place])) 1 sprays NA PRN PRN PRN Reason: Nasal Congestion Stop: 10/21/23 12:39 Tramadol HCl (Tramadol Hcl 50 Mg Tablet) 25 mg PO Q4H PRN PRN Reason: Pain Stop: 10/25/23 15:28 Last Admin: 09/25/23 16:14 Dose: 25 mg
[2023-09-26] MEDS ORDERED: POTASSIUM PHOSPHATE 21 MMOL in SODIUM CHLORIDE 0.9% 500 ML IV ONE (09:30)
[2023-09-26] MEDS: traMADol HCL 50 MG TABLET PO PRN (10:59)
[2023-09-26] MEDS: PANTOprazole 40 MG TAB PO SCH ×2 (11:03→20:06)
[2023-09-26] MEDS: DAPTOmycin 225 MG in SYRINGE 0 ML IV SCH (12:57)
--- NOTE | 2023-09-26 14:53 | Gastroenterology Progress Note ---
Date of Service September 26, 2023 Assessment & Plan (1) Emphysematous gastritis: Plan: Improving as evidenced by normalized WBC and yesterday's CTA w gastric wall thickness returning to normal. Plan Continue antibiotics. Length of antibiotics per ID. Repeat CTAP w oral, no IV contrast. If no sign worsening on CT, the full liquid diet. Phenergan not effective, will try zofran and if not effective, Emend. Continue BID PPI. Please have surgery re-evaluate. Admission and Anticipated Discharge Date Admission Date: September 21, 2023 Supervising Physician Co-Signing Physician Notes I performed a history and physical examination of the patient today, including specifically on physical exam - soft abdomen. I have discussed the patient's management with the advanced practitioner. Please refer to the nurse practitioner's note for the documented findings and plan of care. Subjective Per pt request, given regular consistently food last evening. Nausea since early childhood coordinator. Denies any vomiting (states most recent vomiting days ago). Still felt better today than yesterday. When asked reports epigastric discomfort (which is new). Review of Systems 2 Review of Systems: ROS: Gen: Denies weakness, fevers, weight loss; paraplegic Eyes: No eye redness, or pain, no recent vision changes Resp: No SOB, no cough Cardio: No palpitations/irregular beats, no chest pain GI: As per HPI, otherwise (-) : Denies pain on urination Skin: No jaundice, itching or new rashes Physical Exam 2 Eyes: PERRL, conjunctivae normal, anicteric sclerae ENMT: external ear and nose normal, oropharynx normal Neck: trachea midline, no thyromegaly Respiratory: normal respiratory effort, lungs clear to auscultation Cardiovascular: RRR, no murmur, no edema Gastrointestinal (Abdomen): hypoactive BS, mild epigastric tenderness, non distended, ostomy draining soft brown BM most recently yesterday. Psychiatric: A+Ox3, euthymic affect Lymphatic: no cervical or axillary lymphadenopathy Results & Data Vital Signs (Past 12 Hours) Vital Signs Temp Pulse Resp BP Pulse Ox O2 Del Method 09/26/23 14:40 36.6 C 85 15 123/71 100 Room Air 09/26/23 08:15 Room Air 09/26/23 07:12 36.5 C 73 16 110/64 98 Room Air Laboratory Results 09/26/23 05:34 09/26/23 05:34 LFTs normal.
[2023-09-26] MEDS ORDERED: ondansetron HCL 6 MG in DEXTROSE 5% 50 ML IV PRN (14:56)
--- NOTE | 2023-09-26 16:58 | Surgery Progress Note ---
Date of Service September 26, 2023 Assessment & Plan (1) Emphysematous gastritis: Plan 68-year-old gentleman with extensive medical and surgical history in the hospital for emphysematous gastritis. Original CT scan with significant amount of pneumatosis in the gastric wall up in the fundus near the EG junction. EGD demonstrated ischemia and necrosis but no perforation. He was improving until today when he developed nausea vomiting and abdominal pain. CT scan is ordered. If this CT scan demonstrates progression of the emphysematous gastritis or signs of perforation or impending perforation, he will require immediate transfer to tertiary care center for surgical management. He has an extensive surgical history in the past including multiple hernia repairs with mesh, leading to a hostile abdomen. Surgical treatment of his condition could require proximal or complete gastrectomy, which would require tertiary care expertise not available in this hospital. We will await the results of the CT scan. Admission and Anticipated Discharge Date Admission Date: September 21, 2023 Subjective Was called to see the patient by the hospitalist at 4:45 PM today. He states that he had sudden onset of upper abdominal pain and nausea. He denies vomiting. He denies fevers or chills. He had been eating a regular diet to this point. He has been seen by GI, and a CT scan has been ordered. He is reluctant to drink the contrast due to his nausea. Physical Exam Physical Exam: AFVSS NAD, A&O x 3 Abdomen: Soft, mild TTP in epigastric region Midline scar with palpable evidence of surgical mesh Ostomy pink, viable, working Results & Data Vital Signs (Past 12 Hours) Vital Signs Temp Pulse Resp BP Pulse Ox O2 Del Method 09/26/23 14:40 36.6 C 85 15 123/71 100 Room Air 09/26/23 08:15 Room Air 09/26/23 07:12 36.5 C 73 16 110/64 98 Room Air Laboratory Results 09/26/23 Range/Units 05:34 WBC 7.54 (4.8-10.8) K/ul RBC 4.41 L (4.70-6.10) M/uL Hgb 10.7 L (14.0-18.0) g/dl Hct 33.5 L (42.0-52.0) % MCV 76.0 L (80.0-100.0) fL MCH 24.3 L (25.0-34.0) pg MCHC 31.9 L (32.0-36.0) g/dL RDW Std Deviation 44.1 (36.4-46.3) fL RDW Coeff of Sebastian 16.2 H (11.5-14.5) % Plt Count 336 (130-400) K/uL MPV 8.6 L (9.4-12.4) fL Sodium 138 (136-145) mmol/L Potassium 2.9 L D (3.5-5.1) mmol/L Chloride 107 (98-107) mmol/L Carbon Dioxide 26 (21-32) mmol/L Anion Gap 5 (3-11) BUN 14 (6-23) mg/dl Creatinine 0.62 (0.6-1.4) mg/dl Est Cr Clr Drug Dosing 92.8 ml/min Est GFR ( Amer) 116.5 ml/min Est GFR (Non-Af Amer) 100.5 ml/min BUN/Creatinine Ratio 22.6 H (10-20) Glucose 113 H (70-99(Fasting)) mg/dl Calcium 8.0 L (8.6-10.3) mg/dl Phosphorus 2.4 L (2.5-4.9) mg/dl Magnesium 1.7 (1.7-2.4) mg/dl Total Bilirubin 0.4 (0.2-1.0) mg/dl AST 6 L (13-39) U/L ALT < 3 L (7-52) U/L Alkaline Phosphatase 46 (34-104) U/L Total Protein 5.9 L (6.0-8.3) gm/dl Albumin 2.8 L (3.4-5.0) gm/dl Globulin 3.1 (2.5-4.0) gm/dl Albumin/Globulin Ratio 0.9 (0.9-2)
--- NOTE | 2023-09-26 21:27 | CT Scan Report ---
Exam(s): CT ABDOMEN + PELVIS Without Contrast EXAM: CT Abdomen and Pelvis Without Intravenous Contrast CLINICAL HISTORY: Reason for exam: question emphysematous gastritis. TECHNIQUE: Axial computed tomography images of the abdomen and pelvis without intravenous contrast. CTDI is 22.99 mGy and DLP is 1130.51 mGy-cm. Automated exposure control was utilized for the study. A dose lowering technique was utilized adhering to the principles of ALARA. COMPARISON: No relevant prior studies available. FINDINGS: Lung bases: Atelectasis at the LEFT lung base. Percutaneous colostomy tube. ABDOMEN: Liver: Unremarkable. Gallbladder and bile ducts: Unremarkable. No calcified stones. No ductal dilation. Pancreas: Unremarkable. No ductal dilation. Spleen: Unremarkable. No splenomegaly. Adrenals: Unremarkable. No mass. Kidneys and ureters: RIGHT lower pole renal cyst measures 3.2 cm. No obstructing stones. No hydronephrosis. Stomach and bowel: LEFT lower quadrant colostomy. No small bowel obstruction. No free intraperitoneal air. No mucosal thickening. PELVIS: Appendix: No findings to suggest acute appendicitis. Bladder: Suprapubic catheter terminates in the urinary bladder. No stones. Reproductive: Unremarkable as visualized. ABDOMEN and PELVIS: Intraperitoneal space: Unremarkable. No free air. No significant fluid collection. Bones/joints: Sacral decubitus ulceration, although physical exam. Chronically fractured RIGHT femoral neck. No dislocation. Soft tissues: Anterior hernia mesh repair. Vasculature: Unremarkable. No abdominal aortic aneurysm. Lymph nodes: Unremarkable. No enlarged lymph nodes. IMPRESSION: 1. Anterior hernia mesh repair. 2. Suprapubic catheter terminates in the urinary bladder. 3. LEFT lower quadrant colostomy. No small bowel obstruction. No free intraperitoneal air. 4. Atelectasis at the LEFT lung base. Percutaneous colostomy tube. 5. Chronically fractured RIGHT femoral neck. Electronically signed by: Ayden Doshi MD 09/26/23 21:26 PM
[2023-09-26] MEDS ORDERED: traMADol HCL 50 MG TABLET PO STA (21:53)
[2023-09-26] MEDS ORDERED: FOSAPREPITANT DIMEGLUMINE 115 MG in 0.9 % SODIUM CHLORIDE 111.1667 ML IV ONE (22:15)
[2023-09-27] MEDS: metroNIDAZOLE 500 MG/100 ML BAG IV SCH ×3 (00:33→18:20)
[2023-09-27] MEDS: CEFEPIME 2,000 MG in SYRINGE 0 ML IV SCH ×3 (01:40→18:12)
[2023-09-27 06:45] LABS: Hematocrit (blood only) 33.1 % (42.0-52.0); Hemoglobin 10.5 g/dl (14.0-18.0); Mean Corpuscular Hemoglobin 24.5 pg (25.0-34.0); Mean Corpuscular Hgb Conc 31.7 g/dL (32.0-36.0); Mean Corpuscular Volume 77.2 fL (80.0-100.0); Mean Platelet Volume 8.7 fL (9.4-12.4); Platelet Count 308 K/uL (130-400); RDW Coefficient of Variation 16.7 % (11.5-14.5); RDW Standard Deviation 45.6 fL (36.4-46.3); Red Blood Count 4.29 M/uL (4.70-6.10); White Blood Count 7.14 K/ul (4.8-10.8)
[2023-09-27 07:06] LABS: BUN Creatinine Ratio 19.1 (10-20); Calcium 7.8 mg/dl (8.6-10.3); Creatinine Clr Calc Pharmacy 122.5 ml/min; Est GFR (African American) 130.5 ml/min; Est GFR (Non-African American) 112.6 ml/min; Magnesium 1.7 mg/dl (1.7-2.4); Phosphorus 2.9 mg/dl (2.5-4.9); Potassium 3.2 mmol/L (3.5-5.1)
--- NOTE | 2023-09-27 07:15 | Surgery Progress Note ---
Date of Service September 27, 2023 Assessment & Plan (1) Emphysematous gastritis: Plan: He continues to complain of increased nausea and pain in his upper abdomen today. The CT scan was read overnight as negative. We will review the CT scan with our radiology group this morning. No definitive surgical indications at this time. We will discuss with gastroenterology and medicine as to further steps. If he were to require any surgery he would need to be transferred to a tertiary care center. Dr. Srivastava is covering for the weekend. Admission and Anticipated Discharge Date Admission Date: September 21, 2023 Subjective Still states he is feeling nauseated this morning. No further vomiting. Continues to complain of upper abdominal pain. No fevers. Physical Exam Physical Exam: AFVSS NAD, A&O x 3 Abdomen: Soft, mild TTP epigastric region No rebound/guarding/signs of peritonitis Results & Data Vital Signs (Past 12 Hours) Vital Signs Temp Pulse Resp BP Pulse Ox O2 Del Method 09/26/23 22:19 37.1 C 79 18 115/67 98 Room Air Laboratory Results 09/27/23 Range/Units 06:23 WBC 7.14 (4.8-10.8) K/ul RBC 4.29 L (4.70-6.10) M/uL Hgb 10.5 L (14.0-18.0) g/dl Hct 33.1 L (42.0-52.0) % MCV 77.2 L (80.0-100.0) fL MCH 24.5 L (25.0-34.0) pg MCHC 31.7 L (32.0-36.0) g/dL RDW Std Deviation 45.6 (36.4-46.3) fL RDW Coeff of Sebastian 16.7 H (11.5-14.5) % Plt Count 308 (130-400) K/uL MPV 8.7 L (9.4-12.4) fL Sodium 138 (136-145) mmol/L Potassium 3.2 L (3.5-5.1) mmol/L Chloride 106 (98-107) mmol/L Carbon Dioxide 27 (21-32) mmol/L Anion Gap 5 (3-11) BUN 9 (6-23) mg/dl Creatinine 0.47 L (0.6-1.4) mg/dl Est Cr Clr Drug Dosing 122.5 ml/min Est GFR ( Amer) 130.5 ml/min Est GFR (Non-Af Amer) 112.6 ml/min BUN/Creatinine Ratio 19.1 (10-20) Glucose 97 (70-99(Fasting)) mg/dl Calcium 7.8 L (8.6-10.3) mg/dl Phosphorus 2.9 (2.5-4.9) mg/dl Magnesium 1.7 (1.7-2.4) mg/dl Hepatitis C Ab (EIA) Pending
[2023-09-27] MEDS ORDERED: POTASSIUM PHOS 3 MMOL/1 ML INFUSION IV STA (07:51)
--- NOTE | 2023-09-27 07:56 | Hospitalist Progress Note ---
Date of Service September 27, 2023 Assessment & Plan (1) Complicated UTI (urinary tract infection): Plan: POSSIBLE UTI Suprapubic catheter and left percutaneous nephrostomy related UTI recurrent UTIs secondary to neurogenic bladder secondary to spina bifida status post suprapubic catheter placement/hx staghorn calculi as per records/left hydronephrosis status post PCNL, Failed outpatient treatment Urine culture: More than 3 organisms, recommend recollection Repeat urine culture: as above Blood cultures: Negative so far On IV cefepime, flagyl ID consulted- stop dapto and obtain UA/ cultx from nephrostomy tube, cultx pending ABDOMINAL PAIN, EMPHYSEMATOUS GASTRITIS History of GERD Protonix IV twice daily -> switched to PO PPI GI consulted Status post EGD: Impression: Emphysematous gastritis. Recommendation: Discharge pt to floor. NPO for today; can consider clears tomorrow. PPI gtt. Broad spectrum abx to include strep viridans and anaerobic coverage. Surgery consult. Avoid NSAIDs, steroids. General surgery consulted: No indication for surgery at this time Monitor closely Continued on daptomycin plus cefepime plus Flagyl, as per GI recommendations ID consulted - stopped dapto, as above GI ordered CT angiogram abd./pelvis - 1. Improving findings related to the previously described emphysematous gastritis. There is decreased gastric distention, improving gastric wall thickening with adjacent perigastric inflammatory stranding. 2. No hiatal hernia or gastric volvulus 3. Sacral decubitus ulcer without abscess. 4. Left-sided percutaneous nephrostomy catheter in place with numerous left ureteral calculi redemonstrated. There is dilation of the left renal pelvis wit hout significant hydronephrosis. 5. Trace left pleural effusion with chronic left hemidiaphragm elevation. 6. Unremarkable CTA portion of the study. Advanced diet per GI -> however pt then developed nausea and vomiting, made NPO and discussed with GI and surgery. CT abd/pelvis ordered - 1. Anterior hernia mesh repair. 2. Suprapubic catheter terminates in the urinary bladder. 3. LEFT lower quadrant colostomy. No small bowel obstruction. No free intraperitoneal air. 4. Atelectasis at the LEFT lung base. Percutaneous colostomy tube. 09/27 - Discussed w/ GI - CT scan showed healed emphysematous gastritis. Has severe constipation due to Paraplegia hence restarted back on Miralax BID. Advance diet. HYPOKALEMIA secondary to transient diarrhea illness replace and monitor history of colostomy chronic anemia, hemoglobin at baseline chronic decubitus wound ,stage IV pressure ulcer, POA - pt follows with wound care as outpt - Wound care consult placed anxiety/mood disorder, at baseline past tobacco abuse History of VRE DVT prophylaxis per Lovenox subcu Full code Disposition Lives at home Patient's brother helping with patient's care at home Admission and Anticipated Discharge Date Admission Date: September 21, 2023 Subjective Follow-up for UTI, in the setting of suprapubic catheter, nephrostomy tube, emphysematous gastritis, etc. Yesterday and overnight pt with nausea and vomiting CT abd/ pelvis obtained and reviewed by GI and surgery Pt is doing better today, seems that symptoms are d/t constipation and GI started miralax No fever, chills, chest pain, shortness of breath. no fever or chills. Surgery and GI consulted ID consulted and discussed w/ yesterday - stopped dapto, and repeated UA from nephrostomy tube Review of Systems Review of Systems: All systems reviewed & are unremarkable except as noted in Subjective Physical Exam Physical Exam: General- WD/WN in NAD Eyes- anicteric Neck- no JVD Lungs- clear breath sounds bilaterally, no rales/wheezes Heart- normal rate, regular rhythm; no murmurs Abdomen- normal bowel sounds, nondistended, soft, nontender Suprapubic catheter in place: Draining yellow, clear urine Nephrostomy tube also in place: Draining yellow, clear urine Extremities- no pretibial edema, no calf tenderness Neuro/Psych - alert, oriented x 3; speech fluent, no facial asymmetry, answers appropriately, moves BUE Skin- warm & dry, pale Results & Data Results & Data Vital Signs (Past 12 Hours) Vital Signs Temp Pulse Resp BP Pulse Ox O2 Del Method 09/26/23 22:19 37.1 C 79 18 115/67 98 Room Air Laboratory Results 09/27/23 Range/Units 06:23 WBC 7.14 (4.8-10.8) K/ul RBC 4.29 L (4.70-6.10) M/uL Hgb 10.5 L (14.0-18.0) g/dl Hct 33.1 L (42.0-52.0) % MCV 77.2 L (80.0-100.0) fL MCH 24.5 L (25.0-34.0) pg MCHC 31.7 L (32.0-36.0) g/dL RDW Std Deviation 45.6 (36.4-46.3) fL RDW Coeff of Sebastian 16.7 H (11.5-14.5) % Plt Count 308 (130-400) K/uL MPV 8.7 L (9.4-12.4) fL Sodium 138 (136-145) mmol/L Potassium 3.2 L (3.5-5.1) mmol/L Chloride 106 (98-107) mmol/L Carbon Dioxide 27 (21-32) mmol/L Anion Gap 5 (3-11) BUN 9 (6-23) mg/dl Creatinine 0.47 L (0.6-1.4) mg/dl Est Cr Clr Drug Dosing 122.5 ml/min Est GFR ( Amer) 130.5 ml/min Est GFR (Non-Af Amer) 112.6 ml/min BUN/Creatinine Ratio 19.1 (10-20) Glucose 97 (70-99(Fasting)) mg/dl Calcium 7.8 L (8.6-10.3) mg/dl Phosphorus 2.9 (2.5-4.9) mg/dl Magnesium 1.7 (1.7-2.4) mg/dl Hepatitis C Ab (EIA) Pending Medications Administered Current Inpatient Medications Acetaminophen (Acetaminophen 325 Mg Tab) 650 mg PO Q4H PRN PRN Reason: pain/fever Stop: 10/21/23 10:00 Last Admin: 09/25/23 11:42 Dose: 650 mg Azelastine HCl (Azelastine Hcl 0.1% Nasal 200 Sprays/27,400 Mcg Btl) 2 sprays NA [facility] Stop: 10/21/23 10:00 Last Admin: 09/26/23 20:05 Dose: Not Given Fluticasone Propionate (Fluticasone Propionate Na Spr 16 Gm Btl) 2 sprays NA QAM [facility] Stop: 10/21/23 10:00 Last Admin: 09/26/23 08:32 Dose: 2 sprays Promethazine HCl 12.5 mg/ (Sodium Chloride) 50.5 mls @ 202 mls/hr IV Q6H PRN PRN Reason: Nausea And Vomiting Stop: 10/21/23 22:53 Last Infusion: 09/26/23 18:48 Dose: Infused Metronidazole (Flagyl) 500 mg in 100 mls @ 100 mls/hr IV Q8H [facility]; Protocol Stop: 10/03/23 13:29 Last Infusion: 09/27/23 02:49 Dose: Infused Cefepime HCl 2,000 mg/ Syringe 20 mls @ 5 mls/min IV Q8H [facility]; Protocol Stop: 10/03/23 17:29 Last Admin: 09/27/23 01:40 Dose: 5 mls/min Ondansetron HCl 6 mg/ Dextrose 53 mls @ 200 mls/hr IV Q6H PRN PRN Reason: Nausea And Vomiting Stop: 10/26/23 14:55 Potassium Phosphate 15 mmol/ (Sodium Chloride) 255 mls @ 88 mls/hr IV ONE ONE Stop: 09/27/23 10:53 Mirabegron (Mirabegron Er 25 Mg Tab) 25 mg PO DAILY [facility] Stop: 10/27/23 08:59 Oxybutynin Chloride (Oxybutynin Chloride 5 Mg Tab) 5 mg PO BID [facility] Stop: 10/24/23 10:29 Last Admin: 09/26/23 20:06 Dose: 5 mg Pantoprazole Sodium (Pantoprazole 40 Mg Tab) 40 mg PO BID [facility] Stop: 10/26/23 08:59 Last Admin: 09/26/23 20:06 Dose: Not Given Paroxetine HCl (Paroxetine Hcl 20 Mg Tab) 20 mg PO DAILY [facility] Stop: 10/21/23 10:00 Last Admin: 09/23/23 08:20 Dose: Not Given Phenazopyridine HCl (Phenazopyridine Hcl 100 Mg Tab) 100 mg PO TID PRN PRN Reason: Bladder pain Stop: 10/21/23 15:58 Last Admin: 09/21/23 16:51 Dose: 100 mg Polyethylene Glycol (Polyethylene (Miralax) 17 Gm Pack) 17 gm PO DAILY PRN PRN Reason: Constipation Stop: 10/21/23 18:19 Sodium Chloride (Sodium Chloride 0.65% Na Soln 45 Ml ([place])) 1 sprays NA PRN PRN PRN Reason: Nasal Congestion Stop: 10/21/23 12:39 Tramadol HCl (Tramadol Hcl 50 Mg Tablet) 25 mg PO Q4H PRN PRN Reason: Pain Stop: 10/25/23 15:28 Last Admin: 09/26/23 10:59 Dose: 25 mg
[2023-09-27] MEDS ORDERED: POTASSIUM PHOSPHATE 15 MMOL in SODIUM CHLORIDE 0.9% 250 ML IV ONE (08:00)
[2023-09-27] MEDS ORDERED: FOSAPREPITANT DIMEGLUMINE 150 MG in SODIUM CHLORIDE 0.9% 145 ML IV ONE (08:30)
[2023-09-27] MEDS: AZELASTINE HCL 0.1% NASAL 200 SPRAYS/27,400 MCG BTL SCH ×2 (08:53→21:09)
[2023-09-27] MEDS: FLUTICASONE PROPIONATE NA SPR 16 GM BTL SCH (08:53)
[2023-09-27] MEDS: MIRABEGRON ER 25 MG TAB PO SCH (09:06)
[2023-09-27] MEDS: oxyBUTYnin chloride 5 MG TAB PO SCH ×2 (09:07→21:09)
[2023-09-27] MEDS: PANTOprazole 40 MG TAB PO SCH ×2 (09:07→21:09)
[2023-09-27] MEDS: traMADol HCL 50 MG TABLET PO PRN ×3 (09:12→18:10)
--- NOTE | 2023-09-27 11:51 | Gastroenterology Progress Note ---
Date of Service September 27, 2023 Assessment & Plan (1) Emphysematous gastritis: Plan: Improving as evidenced by normalized WBC and yesterday's CTAP w/o wall thickening. Plan Continue antibiotics. Length of antibiotics per ID. Miralax BID. May advice diet to regular consistency. GI will sign off. Admission and Anticipated Discharge Date Admission Date: September 21, 2023 Supervising Physician Co-Signing Physician Notes I performed a history and physical examination of the patient today, including specifically on physical exam - soft abdomen. I have discussed the patient's management with the advanced practitioner. Please refer to the nurse practitio ann's note for the documented findings and plan of care. Slowly improving. Nausea improved with Emend. CT scan showed healed emphysematous gastritis. Has severe constipation due to Paraplegia hence restarted back on Miralax BID. Advance diet. Recall GI if needed. Subjective 68 yr old male paraplegic 2nd to spina bifida who was admitted on 09/[address] w emphysematous gastritis. EGD confirmed diffuse, fundal changes consistent w this. Had felt well w/o any epigastric discomfort or nausea until after eating his first solid food on 09/25 and has had nausea since then. Had epigastric discomfort yesterday. Repeat CT yesterday w continued improvement. Tells me today has lower pain discomfort and still has nausea, no vomiting, is able to tolerate clear liquids this morning. Phenergan, zofran, Emend didn't resolve the nausea but has some improvement. Inspection of his ostomy bag shows 3 small hard pieces of brown stool. Yesterday his diet was advanced to regular, pt had meatloaf for dinner, now with nausea and vomiting Review of Systems Review of Systems: ROS: Gen: Denies weakness, fevers, weight loss; paraplegic Eyes: No eye redness, or pain, no recent vision changes Resp: No SOB, no cough Cardio: No palpitations/irregular beats, no chest pain GI: As per HPI, otherwise (-) : Denies pain on urination Skin: No jaundice, itching or new rashes Physical Exam Eyes: PERRL, conjunctivae normal, anicteric sclerae ENMT: external ear and nose normal, oropharynx normal Neck: trachea midline, no thyromegaly Respiratory: normal respiratory effort, lungs clear to auscultation Cardiovascular: RRR, no murmur, no edema Gastrointestinal (Abdomen): Soft, minimal tenderness in the lower quadrants, BS are normoactive, no distention. Hard stool in ostomy bag. Urostomy tube in place. Psychiatric: A+Ox3, euthymic affect Lymphatic: no cervical or axillary lymphadenopathy Results & Data Vital Signs (Past 12 Hours) Vital Signs Temp Pulse Resp BP Pulse Ox Pulse Ox O2 Del Method 09/27/23 09:30 98 09/27/23 09:27 36.2 C L 78 16 107/58 L 98 Room Air O2 Del Method 09/27/23 09:30 Room Air 09/27/23 09:27 Laboratory Results WBC 7.14, Hb 10.5, Hct 33.1, Plts 308, Na 138, K 3.2, CL 106, CO2 27, BN 9, Cr 0.47, glucose 97. Diagnostic Findings non contrast CTAP 09/26/23: 1. Anterior hernia mesh repair. 2. Suprapubic catheter terminates in the urinary bladder. 3. LEFT lower quadrant colostomy. No small bowel obstruction. No free intraperitoneal air. 4. Atelectasis at the LEFT lung base. Percutaneous colostomy tube. 5. Chronically fractured RIGHT femoral neck.
[2023-09-27] MEDS: POLYETHYLENE (MIRALAX) 17 GM PACK PO SCH ×2 (14:09→21:09)
[2023-09-27] MEDS: POTASSIUM CHLORIDE CRTAB 20 MEQ TABCR PO STA ×2 (19:32→20:05)
[2023-09-27] MEDS ORDERED: POTASSIUM CHLORIDE PWD 20 MEQ PACK PO STA (19:39)
[2023-09-27] MEDS ORDERED: VIBEGRON 75 MG TAB PO SCH (21:00)
[2023-09-28] MEDS: metroNIDAZOLE 500 MG/100 ML BAG IV SCH ×3 (00:03→17:06)
--- NOTE | 2023-09-28 05:35 | Surgery Progress Note ---
Date of Service September 28, 2023 Assessment & Plan (1) Emphysematous gastritis: Plan: Patient is currently admitted on the hospitalist service. Patient has been seen by gastroenterology and his clinical improvement was noted his diet has been advanced which she has tolerated Patient previously seen by [facility] general surgery and there is not felt to be any indication for surgical intervention Continue antibiotics in the form of cefepime and Flagyl as directed by medical service Please contact surgical service if there is change in clinical status Admission and Anticipated Discharge Date Admission Date: September 21, 2023 Supervising Physician Co-Signing Physician Notes I personally saw and evaluated the patient with Clayton Vallejo PA-C and agree with the assessment and plan. 68-year-old male with emphysematous gastritis He is back to tolerating a solid diet without increased abdominal pain or nausea Surgery will sign off at this time, no indications for any surgical intervention Subjective Patient is resting comfortably in bed. He notes that since his diet has advanced to solids he has not had any nausea or vomiting or worsening abdominal pain. Physical Exam Gastrointestinal (Abdomen): Abdomen is soft and nondistended. There is no rebound tenderness or guarding or pain with palpation. Results & Data Vital Signs (Past 12 Hours) Vital Signs Temp Pulse Resp BP Pulse Ox O2 Del Method 09/27/23 21:12 37.1 C 92 H 14 107/66 99 Room Air PG Care Time/CCT Total # of Minutes Spent Total Time Spent with Patient: Total time spent is greater than 50% in coordination of care (as documented) at patient's floor/unit and/or counseling patient: Coding Level of Care Code 28081 SUB INP/OBS CARE 10/03MIN Diagnoses Emphysematous gastritis K29.60
--- NOTE | 2023-09-28 06:03 | Electrocardiogram Report ---
Test Reason : Blood Pressure : / mmHG Vent. Rate : 076 BPM Atrial Rate : 076 BPM P-R Int : 140 ms QRS Dur : 084 ms QT Int : 412 ms P-R-T Axes : 047 -23 035 degrees QTc Int : 463 ms Normal sinus rhythm Nonspecific T wave abnormality When compared with ECG of 25-JUN-2023 08:33, Vent. rate has decreased BY 44 BPM Confirmed by Emir Garcia ([id number]) on 09/28/2023 6:03:50 AM Referred By: REFERRED SELF Confirmed By:Emir Garcia
[2023-09-28 06:25] LABS: Hematocrit (blood only) 33.6 % (42.0-52.0); Hemoglobin 10.3 g/dl (14.0-18.0); Mean Corpuscular Hemoglobin 23.9 pg (25.0-34.0); Mean Corpuscular Hgb Conc 30.7 g/dL (32.0-36.0); Mean Platelet Volume 8.7 fL (9.4-12.4); Platelet Count 277 K/uL (130-400); RDW Coefficient of Variation 16.7 % (11.5-14.5); Red Blood Count 4.31 M/uL (4.70-6.10); White Blood Count 6.79 K/ul (4.8-10.8)
[2023-09-28 06:45] LABS: BUN Creatinine Ratio 25.6 (10-20); Calcium 8.4 mg/dl (8.6-10.3); Creatinine Clr Calc Pharmacy 133.9 ml/min; Est GFR (African American) 135.4 ml/min; Est GFR (Non-African American) 116.8 ml/min; Magnesium 1.7 mg/dl (1.7-2.4); Phosphorus 2.2 mg/dl (2.5-4.9); Potassium 3.4 mmol/L (3.5-5.1)
--- NOTE | 2023-09-28 07:09 | Electrocardiogram Report ---
Test Reason : Blood Pressure : / mmHG Vent. Rate : 089 BPM Atrial Rate : 089 BPM P-R Int : 136 ms QRS Dur : 084 ms QT Int : 366 ms P-R-T Axes : 064 -21 063 degrees QTc Int : 445 ms Normal sinus rhythm Normal ECG When compared with ECG of 26-SEP-2023 22:16, No significant change was found Confirmed by Prasanth Bennett ([id number] on 09/28/2023 7:09:01 AM Referred By: REFERRED SELF Confirmed By:Parish Bennett
[2023-09-28] MEDS ORDERED: POTASSIUM CHLORIDE CRTAB 20 MEQ TABCR PO STA (08:03)
--- NOTE | 2023-09-28 08:03 | Hospitalist Progress Note ---
Date of Service September 28, 2023 Assessment & Plan (1) Complicated UTI (urinary tract infection): Plan: POSSIBLE UTI Suprapubic catheter and left percutaneous nephrostomy related UTI recurrent UTIs secondary to neurogenic bladder secondary to spina bifida status post suprapubic catheter placement/hx staghorn calculi as per records/left hydronephrosis status post PCNL, Failed outpatient treatment Urine culture: More than 3 organisms, recommend recollection Repeat urine culture: as above Blood cultures: Negative so far On IV cefepime, flagyl ID consulted- stop dapto and obtain UA/ cultx from nephrostomy tube, cultx negative ABDOMINAL PAIN, EMPHYSEMATOUS GASTRITIS History of GERD Protonix IV twice daily -> switched to PO PPI GI consulted Status post EGD: Impression: Emphysematous gastritis. Recommendation: Discharge pt to floor. NPO for today; can consider clears tomorrow. PPI gtt. Broad spectrum abx to include strep viridans and anaerobic coverage. Surgery consult. Avoid NSAIDs, steroids. General surgery consulted: No indication for surgery at this time Monitor closely Continued on daptomycin plus cefepime plus Flagyl, as per GI recommendations ID consulted - stopped dapto, as above GI ordered CT angiogram abd./pelvis - 1. Improving findings related to the previously described emphysematous gastritis. There is decreased gastric distention, improving gastric wall thickening with adjacent perigastric inflammatory stranding. 2. No hiatal hernia or gastric volvulus 3. Sacral decubitus ulcer without abscess. 4. Left-sided percutaneous nephrostomy catheter in place with numerous left ureteral calculi redemonstrated. There is dilation of the left renal pelvis wi thout significant hydronephrosis. 5. Trace left pleural effusion with chronic left hemidiaphragm elevation. 6. Unremarkable CTA portion of the study. Advanced diet per GI -> however pt then developed nausea and vomiting, made NPO and discussed with GI and surgery. CT abd/pelvis ordered - 1. Anterior hernia mesh repair. 2. Suprapubic catheter terminates in the urinary bladder. 3. LEFT lower quadrant colostomy. No small bowel obstruction. No free intraperitoneal air. 4. Atelectasis at the LEFT lung base. Percutaneous colostomy tube. 09/27 - Discussed w/ GI - CT scan showed healed emphysematous gastritis. Has severe constipation due to Paraplegia hence restarted back on Miralax BID. Advance diet. HYPOKALEMIA secondary to transient diarrhea illness replace and monitor history of colostomy chronic anemia, hemoglobin at baseline chronic decubitus wound ,stage IV pressure ulcer, POA - pt follows with wound care as outpt - Wound care consult placed anxiety/mood disorder, at baseline past tobacco abuse History of VRE DVT prophylaxis per Lovenox subcu Full code Disposition Lives at home Patient's brother helping with patient's care at home Admission and Anticipated Discharge Date Admission Date: September 21, 2023 Subjective Follow-up for UTI, in the setting of suprapubic catheter, nephrostomy tube, emphysematous gastritis, etc. Pt is doing better today, symptoms much improved. Still having hard stool. Miralax started yesterday by GI. No fever, chills, chest pain, shortness of breath. no fever or chills. Surgery and GI consulted ID consulted and discussed with previously - stopped dapto, and repeated UA from nephrostomy tube Review of Systems Review of Systems: All systems reviewed & are unremarkable except as noted in Subjective Physical Exam Physical Exam: General- WD/WN in NAD Eyes- anicteric Neck- no JVD Lungs- clear breath sounds bilaterally, no rales/wheezes Heart- normal rate, regular rhythm; no murmurs Abdomen- normal bowel sounds, nondistended, soft, nontender Suprapubic catheter in place: Draining yellow, clear urine Nephrostomy tube also in place: Draining yellow, clear urine Extremities- no pretibial edema, no calf tenderness Neuro/Psych - alert, oriented x 3; speech fluent, no facial asymmetry, answers appropriately, moves BUE Skin- warm & dry, pale Results & Data Results & Data Vital Signs (Past 12 Hours) Vital Signs Temp Pulse Resp BP Pulse Ox O2 Del Method 09/28/23 07:41 36.7 C 70 16 115/67 99 Room Air 09/27/23 21:12 37.1 C 92 H 14 107/66 99 Room Air Laboratory Results 09/28/23 09/27/23 Range/Units 06:07 06:23 WBC 6.79 (4.8-10.8) K/ul RBC 4.31 L (4.70-6.10) M/uL Hgb 10.3 L (14.0-18.0) g/dl Hct 33.6 L (42.0-52.0) % MCV 78.0 L (80.0-100.0) fL MCH 23.9 L (25.0-34.0) pg MCHC 30.7 L (32.0-36.0) g/dL RDW Std Deviation 47.0 H (36.4-46.3) fL RDW Coeff of Sebastian 16.7 H (11.5-14.5) % Plt Count 277 (130-400) K/uL MPV 8.7 L (9.4-12.4) fL Sodium 136 (136-145) mmol/L Potassium 3.4 L (3.5-5.1) mmol/L Chloride 105 (98-107) mmol/L Carbon Dioxide 27 (21-32) mmol/L Anion Gap 4 (3-11) BUN 11 (6-23) mg/dl Creatinine 0.43 L (0.6-1.4) mg/dl Est Cr Clr Drug Dosing 133.9 ml/min Est GFR ( Amer) 135.4 ml/min Est GFR (Non-Af Amer) 116.8 ml/min BUN/Creatinine Ratio 25.6 H (10-20) Glucose 110 H (70-99(Fasting)) mg/dl Calcium 8.4 L (8.6-10.3) mg/dl Phosphorus 2.2 L (2.5-4.9) mg/dl Magnesium 1.7 (1.7-2.4) mg/dl Lipase 6 L (11-82) U/L Medications Administered Current Inpatient Medications Acetaminophen (Acetaminophen 325 Mg Tab) 650 mg PO Q4H PRN PRN Reason: pain/fever Stop: 10/21/23 10:00 Last Admin: 09/25/23 11:42 Dose: 650 mg Azelastine HCl (Azelastine Hcl 0.1% Nasal 200 Sprays/27,400 Mcg Btl) 2 sprays NA [facility] Stop: 10/21/23 10:00 Last Admin: 09/27/23 21:09 Dose: Not Given Fluticasone Propionate (Fluticasone Propionate Na Spr 16 Gm Btl) 2 sprays NA QAM [facility] Stop: 10/21/23 10:00 Last Admin: 09/27/23 08:53 Dose: Not Given Promethazine HCl 12.5 mg/ (Sodium Chloride) 50.5 mls @ 202 mls/hr IV Q6H PRN PRN Reason: Nausea And Vomiting Stop: 10/21/23 22:53 Last Infusion: 09/26/23 18:48 Dose: Infused Metronidazole (Flagyl) 500 mg in 100 mls @ 100 mls/hr IV Q8H [facility]; Protocol Stop: 10/03/23 13:29 Last Infusion: 09/28/23 01:13 Dose: Infused Cefepime HCl 2,000 mg/ Syringe 20 mls @ 5 mls/min IV Q8H [facility]; Protocol Stop: 10/03/23 17:29 Last Admin: 09/28/23 00:00 Dose: 5 mls/min Ondansetron HCl 6 mg/ Dextrose 53 mls @ 200 mls/hr IV Q6H PRN PRN Reason: Nausea And Vomiting Stop: 10/26/23 14:55 Magnesium Oxide (Magnesium Oxide 400 Mg Tab) 400 mg PO QAM [facility] Stop: 10/28/23 08:59 Mirabegron (Mirabegron Er 25 Mg Tab) 25 mg PO DAILY [facility] Stop: 10/27/23 08:59 Last Admin: 09/27/23 09:06 Dose: 25 mg Oxybutynin Chloride (Oxybutynin Chloride 5 Mg Tab) 5 mg PO BID [facility] Stop: 10/24/23 10:29 Last Admin: 09/27/23 21:09 Dose: 5 mg Pantoprazole Sodium (Pantoprazole 40 Mg Tab) 40 mg PO BID [facility] Stop: 10/26/23 08:59 Last Admin: 09/27/23 21:09 Dose: 40 mg Paroxetine HCl (Paroxetine Hcl 20 Mg Tab) 20 mg PO DAILY [facility] Stop: 10/21/23 10:00 Last Admin: 09/23/23 08:20 Dose: Not Given Phenazopyridine HCl (Phenazopyridine Hcl 100 Mg Tab) 100 mg PO TID PRN PRN Reason: Bladder pain Stop: 10/21/23 15:58 Last Admin: 09/21/23 16:51 Dose: 100 mg Polyethylene Glycol (Polyethylene (Miralax) 17 Gm Pack) 17 gm PO DAILY PRN PRN Reason: Constipation Stop: 10/21/23 18:19 Polyethylene Glycol (Polyethylene (Miralax) 17 Gm Pack) 17 gm PO BID [facility] Stop: 10/27/23 11:59 Last Admin: 09/27/23 21:09 Dose: 17 gm Potassium Chloride (Potassium Chloride Crtab 20 Meq Tabcr) 40 meq PO NOW STA Stop: 09/28/23 08:04 Sodium Chloride (Sodium Chloride 0.65% Na Soln 45 Ml ([place])) 1 sprays NA PRN PRN PRN Reason: Nasal Congestion Stop: 10/21/23 12:39 Tramadol HCl (Tramadol Hcl 50 Mg Tablet) 25 mg PO Q4H PRN PRN Reason: Pain Stop: 10/25/23 15:28 Last Admin: 09/27/23 18:10 Dose: 25 mg
[2023-09-28] MEDS: CEFEPIME 2,000 MG in SYRINGE 0 ML IV SCH ×3 (09:26→18:17)
[2023-09-28] MEDS: POLYETHYLENE (MIRALAX) 17 GM PACK PO SCH ×2 (09:27→20:00)
[2023-09-28] MEDS: AZELASTINE HCL 0.1% NASAL 200 SPRAYS/27,400 MCG BTL SCH ×2 (09:32→19:58)
[2023-09-28] MEDS: FLUTICASONE PROPIONATE NA SPR 16 GM BTL SCH (09:32)
[2023-09-28] MEDS: PANTOprazole 40 MG TAB PO SCH ×2 (09:33→20:00)
[2023-09-28] MEDS: oxyBUTYnin chloride 5 MG TAB PO SCH ×2 (09:33→20:00)
[2023-09-28] MEDS: MAGNESIUM OXIDE 400 MG TAB PO SCH (09:33)
[2023-09-28] MEDS: MIRABEGRON ER 25 MG TAB PO SCH (09:34)
[2023-09-28] MEDS ORDERED: POTASSIUM CHLORIDE PWD 20 MEQ PACK PO ONE (12:40)
[2023-09-29] MEDS: metroNIDAZOLE 500 MG/100 ML BAG IV SCH ×3 (01:21→16:53)
[2023-09-29] MEDS: CEFEPIME 2,000 MG in SYRINGE 0 ML IV SCH ×3 (01:21→16:50)
[2023-09-29 06:55] LABS: Hematocrit (blood only) 33.6 % (42.0-52.0); Hemoglobin 10.9 g/dl (14.0-18.0); Mean Corpuscular Hemoglobin 24.2 pg (25.0-34.0); Mean Corpuscular Hgb Conc 32.4 g/dL (32.0-36.0); Mean Corpuscular Volume 74.7 fL (80.0-100.0); Mean Platelet Volume 9.2 fL (9.4-12.4); Platelet Count 299 K/uL (130-400); White Blood Count 7.24 K/ul (4.8-10.8)
[2023-09-29 07:10] LABS: BUN Creatinine Ratio 20.9 (10-20); Calcium 8.8 mg/dl (8.6-10.3); Creatinine Clr Calc Pharmacy 133.9 ml/min; Est GFR (African American) 135.4 ml/min; Est GFR (Non-African American) 116.8 ml/min; Magnesium 1.7 mg/dl (1.7-2.4); Phosphorus 2.2 mg/dl (2.5-4.9); Potassium 3.9 mmol/L (3.5-5.1)
[2023-09-29] MEDS: POLYETHYLENE (MIRALAX) 17 GM PACK PO SCH ×2 (08:48→20:22)
[2023-09-29] MEDS: PANTOprazole 40 MG TAB PO SCH ×2 (08:48→20:27)
[2023-09-29] MEDS: AZELASTINE HCL 0.1% NASAL 200 SPRAYS/27,400 MCG BTL SCH ×2 (08:49→20:27)
[2023-09-29] MEDS: FLUTICASONE PROPIONATE NA SPR 16 GM BTL SCH (08:49)
[2023-09-29] MEDS: oxyBUTYnin chloride 5 MG TAB PO SCH ×2 (08:49→20:27)
[2023-09-29] MEDS: MAGNESIUM OXIDE 400 MG TAB PO SCH (08:49)
[2023-09-29] MEDS: MIRABEGRON ER 25 MG TAB PO SCH (08:50)
--- NOTE | 2023-09-29 09:27 | Hospitalist Progress Note ---
Date of Service September 29, 2023 Assessment & Plan (1) Complicated UTI (urinary tract infection): Plan: POSSIBLE UTI Suprapubic catheter and left percutaneous nephrostomy related UTI recurrent UTIs secondary to neurogenic bladder secondary to spina bifida status post suprapubic catheter placement/hx staghorn calculi as per records/left hydronephrosis status post PCNL, Failed outpatient treatment Urine culture: More than 3 organisms, recommend recollection Repeat urine culture: as above Blood cultures: Negative so far On IV cefepime, flagyl ID consulted- stop dapto and obtain UA/ cultx from nephrostomy tube, cultx negative ABDOMINAL PAIN, EMPHYSEMATOUS GASTRITIS History of GERD Protonix IV twice daily -> switched to PO PPI GI consulted Status post EGD: Impression: Emphysematous gastritis. Recommendation: Discharge pt to floor. NPO for today; can consider clears tomorrow. PPI gtt. Broad spectrum abx to include strep viridans and anaerobic coverage. Surgery consult. Avoid NSAIDs, steroids. General surgery consulted: No indication for surgery at this time Monitor closely Continued on daptomycin plus cefepime plus Flagyl, as per GI recommendations ID consulted - stopped dapto, as above GI ordered CT angiogram abd./pelvis - 1. Improving findings related to the previously described emphysematous gastritis. There is decreased gastric distention, improving gastric wall thickening with adjacent perigastric inflammatory stranding. 2. No hiatal hernia or gastric volvulus 3. Sacral decubitus ulcer without abscess. 4. Left-sided percutaneous nephrostomy catheter in place with numerous left ureteral calculi re-demonstrated. There is dilation of the left renal pelvis without significant hydronephrosis. 5. Trace left pleural effusion with chronic left hemidiaphragm elevation. 6. Unremarkable CTA portion of the study. Advanced diet per GI -> however pt then developed nausea and vomiting, made NPO and discussed with GI and surgery. CT abd/pelvis ordered - 1. Anterior hernia mesh repair. 2. Suprapubic catheter terminates in the urinary bladder. 3. LEFT lower quadrant colostomy. No small bowel obstruction. No free intraperitoneal air. 4. Atelectasis at the LEFT lung base. Percutaneous colostomy tube. 09/27 - Discussed w/ GI - CT scan showed healed emphysematous gastritis. Has severe constipation due to Paraplegia hence restarted back on Miralax BID. Advance diet. 09/29 - Pt feels much improved. Stools are loose now, so pt does not wish to take miralax as frequently. HYPOKALEMIA secondary to transient diarrhea illness replace and monitor history of colostomy chronic anemia, hemoglobin at baseline chronic decubitus wound ,stage IV pressure ulcer, POA - pt follows with wound care as outpt - Wound care consult placed anxiety/mood disorder, at baseline past tobacco abuse History of VRE DVT prophylaxis per Lovenox subcu Full code Disposition Lives at home Patient's brother helping with patient's care at home Admission and Anticipated Discharge Date Admission Date: September 21, 2023 Subjective Follow-up for UTI, in the setting of suprapubic catheter, nephrostomy tube, emphysematous gastritis, etc. Pt is doing better today, symptoms much improved/ resolved. Stool loose now, pt does not wish to take Miralax as frequently. No fever, chills, chest pain, shortness of breath. no fever or chills. Surgery, GI and ID consulted Review of Systems Review of Systems: All systems reviewed & are unremarkable except as noted in Subjective Physical Exam Physical Exam: General- WD/WN in NAD Eyes- anicteric Neck- no JVD Lungs- clear breath sounds bilaterally, no rales/wheezes Heart- normal rate, regular rhythm; no murmurs Abdomen- normal bowel sounds, nondistended, soft, nontender Suprapubic catheter in place: Draining yellow, clear urine Nephrostomy tube also in place: Draining yellow, clear urine Extremities- no pretibial edema, no calf tenderness Neuro/Psych - alert, oriented x 3; speech fluent, no facial asymmetry, answers appropriately, moves BUE Skin- warm & dry, pale Results & Data Results & Data Vital Signs (Past 12 Hours) Vital Signs Temp Pulse Resp BP Pulse Ox O2 Del Method 09/29/23 07:46 36.8 C 82 16 107/66 98 Room Air Laboratory Results 09/29/23 09/27/23 Range/Units 05:59 06:23 WBC 7.24 (4.8-10.8) K/ul RBC 4.50 L (4.70-6.10) M/uL Hgb 10.9 L (14.0-18.0) g/dl Hct 33.6 L (42.0-52.0) % MCV 74.7 L (80.0-100.0) fL MCH 24.2 L (25.0-34.0) pg MCHC 32.4 (32.0-36.0) g/dL RDW Std Deviation 45.0 (36.4-46.3) fL RDW Coeff of Sebastian 17.0 H (11.5-14.5) % Plt Count 299 (130-400) K/uL MPV 9.2 L (9.4-12.4) fL Sodium 137 (136-145) mmol/L Potassium 3.9 (3.5-5.1) mmol/L Chloride 106 (98-107) mmol/L Carbon Dioxide 27 (21-32) mmol/L Anion Gap 4 (3-11) BUN 9 (6-23) mg/dl Creatinine 0.43 L (0.6-1.4) mg/dl Est Cr Clr Drug Dosing 133.9 ml/min Est GFR ( Amer) 135.4 ml/min Est GFR (Non-Af Amer) 116.8 ml/min BUN/Creatinine Ratio 20.9 H (10-20) Glucose 119 H (70-99(Fasting)) mg/dl Calcium 8.8 (8.6-10.3) mg/dl Phosphorus 2.2 L (2.5-4.9) mg/dl Magnesium 1.7 (1.7-2.4) mg/dl Hepatitis C Ab (EIA) NON-REACTIVE (NON-REACTIVE) Medications Administered Current Inpatient Medications Acetaminophen (Acetaminophen 325 Mg Tab) 650 mg PO Q4H PRN PRN Reason: pain/fever Stop: 10/21/23 10:00 Last Admin: 09/25/23 11:42 Dose: 650 mg Azelastine HCl (Azelastine Hcl 0.1% Nasal 200 Sprays/27,400 Mcg Btl) 2 sprays NA [facility] Stop: 10/21/23 10:00 Last Admin: 09/29/23 08:49 Dose: Not Given Fluticasone Propionate (Fluticasone Propionate Na Spr 16 Gm Btl) 2 sprays NA QAM [facility] Stop: 10/21/23 10:00 Last Admin: 09/29/23 08:49 Dose: Not Given Promethazine HCl 12.5 mg/ (Sodium Chloride) 50.5 mls @ 202 mls/hr IV Q6H PRN PRN Reason: Nausea And Vomiting Stop: 10/21/23 22:53 Last Infusion: 09/26/23 18:48 Dose: Infused Metronidazole (Flagyl) 500 mg in 100 mls @ 100 mls/hr IV Q8H [facility]; Protocol Stop: 10/03/23 13:29 Last Admin: 09/29/23 08:48 Dose: 100 mls/hr Cefepime HCl 2,000 mg/ Syringe 20 mls @ 5 mls/min IV Q8H [facility]; Protocol Stop: 10/03/23 17:29 Last Admin: 09/29/23 08:48 Dose: 5 mls/min Ondansetron HCl 6 mg/ Dextrose 53 mls @ 200 mls/hr IV Q6H PRN PRN Reason: Nausea And Vomiting Stop: 10/26/23 14:55 Magnesium Oxide (Magnesium Oxide 400 Mg Tab) 400 mg PO QAM [facility] Stop: 10/28/23 08:59 Last Admin: 09/29/23 08:49 Dose: 400 mg Mirabegron (Mirabegron Er 25 Mg Tab) 25 mg PO DAILY [facility] Stop: 10/27/23 08:59 Last Admin: 09/29/23 08:50 Dose: 25 mg Oxybutynin Chloride (Oxybutynin Chloride 5 Mg Tab) 5 mg PO BID [facility] Stop: 10/24/23 10:29 Last Admin: 09/29/23 08:49 Dose: 5 mg Pantoprazole Sodium (Pantoprazole 40 Mg Tab) 40 mg PO BID [facility] Stop: 10/26/23 08:59 Last Admin: 09/29/23 08:48 Dose: 40 mg Paroxetine HCl (Paroxetine Hcl 20 Mg Tab) 20 mg PO DAILY [facility] Stop: 10/21/23 10:00 Last Admin: 09/23/23 08:20 Dose: Not Given Phenazopyridine HCl (Phenazopyridine Hcl 100 Mg Tab) 100 mg PO TID PRN PRN Reason: Bladder pain Stop: 10/21/23 15:58 Last Admin: 09/21/23 16:51 Dose: 100 mg Polyethylene Glycol (Polyethylene (Miralax) 17 Gm Pack) 17 gm PO DAILY PRN PRN Reason: Constipation Stop: 10/21/23 18:19 Polyethylene Glycol (Polyethylene (Miralax) 17 Gm Pack) 17 gm PO BID [facility] Stop: 10/27/23 11:59 Last Admin: 09/29/23 08:48 Dose: Not Given Sodium Chloride (Sodium Chloride 0.65% Na Soln 45 Ml ([place])) 1 sprays NA PRN PRN PRN Reason: Nasal Congestion Stop: 10/21/23 12:39 Tramadol HCl (Tramadol Hcl 50 Mg Tablet) 25 mg PO Q4H PRN PRN Reason: Pain Stop: 10/25/23 15:28 Last Admin: 09/27/23 18:10 Dose: 25 mg
--- NOTE | 2023-09-29 10:25 | Urology Consultation ---
Date of Consultation September 29, 2023 Assessment & Plan (1) Chronic suprapubic catheter: (2) Urolithiasis: Plan I do not believe this patient's issues currently revolve around urinary tract infection of any sort I do not think it is necessary to reculture his nephrostomy tube or suprapubic tube as I fully anticipate that both of these will grow bacteria consistent with chronic colonization He does not require an acute catheter changethis is a procedure that can occur as an outpatient with his primary urologist's nursing staff Do not manipulate his tubes unless no drainage If so, nursing staff can exchange his suprapubic tube in the hospital but it is not a requirement at this stage From a standpoint I see no reason he needs to remain in the hospital History of Present Illness Attending Physician: Harsh Garcia MD History of Present Illness 68-year-old male with complex urological history including a staghorn calculus, neurogenic bladder, indwelling left nephrostomy tube and suprapubic catheter Admitted to the hospital for unrelated issues Has experienced a small amount of leakage around his SP tube although it currently appears to be draining appropriately He is established with [facility] We were consulted for possible suprapubic catheter change Hospitalist notes continue to document possible UTI, however he has no outward symptoms of UTI, no flank pain or suprapubic pain consistent with UTI, no fevers, labs are stable, vitals are stable, culture showing 3 bacteria which is expected for someone with longstanding indwelling cathetersthis is consistent with colonization Allergies Allergy/AdvReac Type Severity Reaction Status Date / Time iodine Allergy Intermediate A Verified 09/23/23 09:30 TEEN-SKIN CONTACT BURNED THE SKIN-FELT LIKE ON FIRE adhesive Allergy Mild ADHESIVE Verified 09/23/23 09:30 TAPE RIPS SKIN APART clindamycin Allergy Mild RASH Verified 09/23/23 09:30 Iodinated Contrast Media Allergy Mild NAUSEA Verified 09/23/23 09:30 Penicillins Allergy Mild HIVES-ITCHING,HAS Verified 09/23/23 09:30 TOLERATED ANCEF IN PAST pineapple Allergy Mild "TONGUE Verified 09/23/23 09:30 WALKER AND CRACKS" vancomycin Allergy Mild hives Verified 09/23/23 09:30 aspirin AdvReac Mild GI Verified 09/23/23 09:30 SENSITIVITY Home Medications Medication Instructions Recorded Confirmed Type azelastine 137 mcg (0.1 %) nasal 2 spray intranasal [facility] 06/25/23 09/21/23 History spray aerosol magnesium oxide 400 mg PO QAM 06/25/23 09/21/23 History pantoprazole 40 mg tablet,delayed 40 mg PO DAILY 06/25/23 09/21/23 History release paroxetine HCl 10 mg tablet 20 mg PO DAILY 06/25/23 09/21/23 History cefdinir 300 mg capsule 300 mg PO [facility] 09/21/23 09/21/23 History fluticasone propionate 50 2 spray intranasal QA 09/21/23 09/21/23 History mcg/actuation nasal spray,suspension Patient History Medical History Abnormal CT of the abdomen Slow to wake up after anesthesia History of frequent urinary tract infections Environmental allergies Little catheter in place suprapubic catheter Chronic allergic rhinitis Hx of Clostridium difficile infection dx years ago Hx MRSA infection stool, dx years ago Hx of migraines History of palpitations hx holter monitoring>no findings; f/u PCP Stage IV pressure ulcer of buttock IBS (irritable bowel syndrome) Anxiety and depression HTN (hypertension) Seasonal allergies Schatzki's ring Wheelchair bound Decubitus ulcer CHRONIC; FOLLOWS W/ WOUND CLINIC- right groin area currently Chronic back pain Osteoarthritis Kidney stones Neurogenic bladder Colostomy in place Chronic gum disease Tinnitus RT EAR Hearing deficit RT EAR History of febrile seizure X 1; CHILDHOOD Deep vein thrombosis > 10 YEARS AGO - TREATED W/ BLOOD THINNERS - R/T IMMOBILITY Dysphagia Spina bifida SPINAL CLOSURE Paraplegia from the waist down-confined to wheelchair Surgical History History of suprapubic catheter History of esophagogastroduodenoscopy (EGD) History of sinus surgery History of surgery RT HIP WOUND DEBRIDEMENT W/ SKIN GRAFTING History of exploratory laparotomy History of incisional hernia repair X5 History of anesthesia reaction SLOW TO WAKE 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 History of cystoscopy W/ STONE EXTRACTION History of colonoscopy History of lithotripsy Status post myringotomy with insertion of tube History of tooth extraction History of esophageal dilatation Family History Other No family history of adverse response to anesthesia Social History Smoking Status: Former smoker Second Hand Exposure: No; Do You Dip or Chew Tobacco: No; Hx Alcohol Use: Yes Alcohol type: beer Hx Substance Use: No Preferred Language: British Communication Ability: Effective Pearl Diver Required: No Beliefs That Will Affect Care: Presybeterian Presybeterian Beliefs: Yazdanism marital status: Single Current Living Situation: Alone Current Living Situation Comment: 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 How many Children do You have: 0 Other Information That Helps Us Care for You: Yes (Upcoming appointments) Feels Safe at Home: Yes Safety Concerns: Feels Safe At This Time Assistive Devices: Wheelchair Physical Exam Physical Exam: Very comfortable appearing Nephrostomy tube draining clear urine Suprapubic tube draining clear urine, no discharge or other abnormality around the suprapubic site, no signs of infection Results & Data Vital Signs (Past 12 Hours) Vital Signs Temp Pulse Resp BP Pulse Ox O2 Del Method 09/29/23 07:46 36.8 C 82 16 107/66 98 Room Air PG Care Time/CCT Total # of Minutes Spent Total Time Spent with Patient: Total time spent is greater than 50% in coordination of care (as documented) at patient's floor/unit and/or counseling patient: Coding Level of Care Code 79713 IN/OBS CONSULT LVL 3,45M Diagnoses Chronic suprapubic catheter Z93.59 Urolithiasis N20.1 Urinary calculus location: ureter (2) Urolithiasis Urinary calculus location: ureter Qualified Code(s): N20.1 - Calculus of ureter
[2023-09-30] MEDS: metroNIDAZOLE 500 MG/100 ML BAG IV SCH ×2 (00:35→11:40)
[2023-09-30] MEDS: CEFEPIME 2,000 MG in SYRINGE 0 ML IV SCH ×2 (00:35→10:58)
[2023-09-30 06:09] LABS: Hematocrit (blood only) 34.6 % (42.0-52.0); Hemoglobin 11.4 g/dl (14.0-18.0); Mean Corpuscular Hemoglobin 24.5 pg (25.0-34.0); Mean Corpuscular Hgb Conc 32.9 g/dL (32.0-36.0); Mean Corpuscular Volume 74.2 fL (80.0-100.0); Mean Platelet Volume 9.5 fL (9.4-12.4); Platelet Count 315 K/uL (130-400); RDW Coefficient of Variation 17.8 % (11.5-14.5); RDW Standard Deviation 45.4 fL (36.4-46.3); Red Blood Count 4.66 M/uL (4.70-6.10); White Blood Count 8.38 K/ul (4.8-10.8)
[2023-09-30 06:15] LABS: BUN Creatinine Ratio 34.2 (10-20); Calcium 8.9 mg/dl (8.6-10.3); Creatinine Clr Calc Pharmacy 151.5 ml/min; Est GFR (African American) 142.4 ml/min; Est GFR (Non-African American) 122.9 ml/min; Magnesium 1.8 mg/dl (1.7-2.4); Phosphorus 2.7 mg/dl (2.5-4.9); Potassium 3.5 mmol/L (3.5-5.1)
[2023-09-30] MEDS: PROMETHAZINE HCL 12.5 MG in SODIUM CHLORIDE 0.9% 50 ML IV PRN (07:59)
[2023-09-30] MEDS: traMADol HCL 50 MG TABLET PO PRN (07:59)
[2023-09-30] MEDS ORDERED: POTASSIUM CHLORIDE 20 MEQ/15 ML UDC PO STA (08:31)
[2023-09-30] MEDS ORDERED: MAGNESIUM SULFATE / D5W 1 GM/100 ML BAG IV ONE (08:45)
[2023-09-30] MEDS: POTASSIUM CHLORIDE / WTR 10 MEQ/100 ML PLCT IV SCH ×2 (08:55→11:03)
[2023-09-30 09:17] LABS: Troponin I High Sensitivity 5.5 pg/ml (0-20)
[2023-09-30 09:27] LABS: Thyroid Stimulating Hormone 16.25 uIu/ml (0.300-4.500)
[2023-09-30] MEDS: FLUTICASONE PROPIONATE NA SPR 16 GM BTL SCH (09:51)
[2023-09-30] MEDS: AZELASTINE HCL 0.1% NASAL 200 SPRAYS/27,400 MCG BTL SCH ×2 (09:51→20:30)
[2023-09-30] MEDS: POLYETHYLENE (MIRALAX) 17 GM PACK PO SCH ×2 (09:52→20:28)
[2023-09-30] MEDS: oxyBUTYnin chloride 5 MG TAB PO SCH ×2 (09:52→20:27)
[2023-09-30] MEDS: PANTOprazole 40 MG TAB PO SCH ×2 (09:52→20:27)
[2023-09-30] MEDS: MAGNESIUM OXIDE 400 MG TAB PO SCH (09:52)
[2023-09-30] MEDS: MIRABEGRON ER 25 MG TAB PO SCH (09:52)
[2023-09-30 10:40] LABS: Troponin I High Sensitivity 2.3 pg/ml (0-20)
--- NOTE | 2023-09-30 12:23 | Hospitalist Progress Note ---
Date of Service September 30, 2023 Assessment & Plan (1) Complicated UTI (urinary tract infection): Plan: ABDOMINAL PAIN, EMPHYSEMATOUS GASTRITIS History of GERD Protonix IV twice daily -> switched to PO PPI GI consulted Status post EGD: Impression Emphysematous gastritis. Tolerating Diet PPI gtt. Broad spectrum abx to include strep viridans and anaerobic coverage. Avoid NSAIDS/Steroids On IV cefepime, flagyl General surgery consulted: No indication for surgery at this time Monitor closely ---09/24 CTA abd/pelvis - 1. Improving findings related to the previously described emphysematous gastritis. There is decreased gastric distention, improving gastric wall thickening with adjacent perigastric inflammatory stranding.2. No hiatal hernia or gastric volvulus3. Sacral decubitus ulcer without abscess. 4. Left-sided percutaneous nephrostomy catheter in place with numerous left ureteral calculi re-demonstrated. There is dilation of the left renal pelvis without significant hydronephrosis.5. Trace left pleural effusion with chronic left hemidiaphragm elevation.6. Unremarkable CTA portion of the study. Advanced diet per GI -> however pt then developed nausea and vomiting, made NPO and discussed with GI and surgery and CT abd/pelvis ordered again on 09/26 --CT a/p 09/26/23: - 1. Anterior hernia mesh repair. 2. Suprapubic catheter terminates in the urinary bladder.3. LEFT lower quadrant colostomy. No small bowel obstruction. No free intraperitoneal air. 4. Atelectasis at the LEFT lung base. Percutaneous colostomy tube.09/27 - Discussed w/ GI - CT scan showed healed emphysematous gastritis. Has severe constipation due to Paraplegia hence restarted back on Miralax BID. Advance diet. Pt was tolerating diet, stool moving via ostomy 09/30 - pt feels nauseated palpitations EKG : NSR, NO PAC/PVC, no ST or t wave change 98, no change from admitting, trop x 2 negative, TSH 16.25, will get T4 will discuss with ID regarding recommendations for antibiotics moving forward POSSIBLE UTI - ruled out Suprapubic catheter and left percutaneous nephrostomy related UTI recurrent UTIs secondary to neurogenic bladder secondary to spina bifida status post suprapubic catheter placement/hx staghorn calculi as per records/left hydronephrosis status post PCNL, Failed outpatient treatment Urine culture: More than 3 organisms, recommend recollection Repeat urine culture: as above Blood cultures: Negative so far ID consulted- stop dapto and obtain UA/ cultx from nephrostomy tube, cultx negative On IV cefepime, flagyl seen and evaluated by urology - no current acute UTI, pt has chronic colonization at this time HYPOKALEMIA secondary to transient diarrhea illness replace and monitor history of colostomy chronic anemia, hemoglobin at baseline chronic decubitus wound ,stage IV pressure ulcer, POA - pt follows with wound care as outpt - Wound care consult placed anxiety/mood disorder, at baseline past tobacco abuse History of VRE DVT prophylaxis per Lovenox subcu Full code Disposition Lives at home Patient's brother helping with patient's care at home plan is to return home when stable Pt does not feel ready to d/c today, awaiting return message from ID regarding antibiotic recs, hopefully medically stable in next 1-2 days, pt declining rehab Pt was seen and examined in collaboration with Dr. Garcia, please see addendum A total of 55 minutes was spent coordinating, documenting, and providing care for this patient excluding time spent in the performance of separately billed services. This included personally viewing all current laboratories and imaging studies, medication reconciliation, outpatient chart review, and discussion with specialists. Due to pt c/o palpitations will ordered potassium chloride 10meq KCL IV x 2, k is 3.5 ; Give 1g IV mag sulfate mag is 1.8 cbc, bmp, mag already ordered for a.m. Admission and Anticipated Discharge Date Admission Date: September 21, 2023 Supervising Physician Co-Signing Physician Notes Pt seen and examined by me, care coordinated with Argenis See PA-C, pls refer to her note above for further detail. Pt has been able to tolerate food for several days now. He was started on miralax by GI as he was constipated which most likely contributed to his nausea. he has been feeling well but today says he can't tolerate potassium supplement and that it is making him nausous. Otherwise no fevers chills chest pain shortness of breath. He reports occasional palpitations, however that is associated with his nausea from potassium. EKG was obtained and reviewed. Will discuss with ID regarding antibiotic recommendations for discharge. MD Radha Subjective Patient was seen and examined in 320. Follow-up emphysematous gastritis. Patient complains of epigastric abdominal pain, nausea and palpitations this morning. Nurses at bedside performing EKG. He states this is similar to symptoms for what he has been here for over the last several days. He denies any lightheadedness, dizziness, diaphoresis, chest pain, shortness of breath, cough, hemoptysis, or hematochezia. His colostomy is functioning well. Suprapubic cath functioning well also. Review of Systems Review of Systems: All systems reviewed & are unremarkable except as noted in HPI & below Physical Exam Physical Exam: Gen: WD/WN, NAD, flat affected, poor eye contact, A&O x3 HEENT: Normocephalic, atraumatic, conjunctivae moist, sclerae anicteric, mucous membranes moist. Lung: Clear to Auscultation bilaterally, no wheezes/rales/rhonchi Heart: Regular rate, regular rhythm, no murmurs, rubs, or gallops Abdomen: Soft, tender in epigastrum, ND +BS x 4 + colostomy, + suprapubic cath, no surrounding eythema Extremities: b/l lymphedema, paraplegia Skin: Warm, no rash, negative turgor. Results & Data Results & Data Vital Signs (Past 12 Hours) Vital Signs Temp Pulse Resp BP BP Pulse Ox O2 Del Method 09/30/23 08:10 100 H 16 128/74 99 Room Air 09/30/23 07:22 36.8 C 105 H 16 128/76 97 Room Air Diagnostic Findings Short CBC 09/30/23 Range/Units 05:28 WBC 8.38 (4.8-10.8) K/ul Hgb 11.4 L (14.0-18.0) g/dl Hct 34.6 L (42.0-52.0) % Plt Count 315 (130-400) K/uL BMP 09/30/23 05:28 Sodium 136 Potassium 3.5 Chloride 104 Carbon Dioxide 27 BUN 13 Creatinine 0.38 L Glucose 119 H Calcium 8.9 Medications Administered Current Inpatient Medications Acetaminophen (Acetaminophen 325 Mg Tab) 650 mg PO Q4H PRN PRN Reason: pain/fever Stop: 10/21/23 10:00 Last Admin: 09/25/23 11:42 Dose: 650 mg Azelastine HCl (Azelastine Hcl 0.1% Nasal 200 Sprays/27,400 Mcg Btl) 2 sprays NA [facility] Stop: 10/21/23 10:00 Last Admin: 09/30/23 09:51 Dose: 2 sprays Fluticasone Propionate (Fluticasone Propionate Na Spr 16 Gm Btl) 2 sprays NA [facility]AM [facility] Stop: 10/21/23 10:00 Last Admin: 09/30/23 09:51 Dose: 2 sprays Promethazine HCl 12.5 mg/ (Sodium Chloride) 50.5 mls @ 202 mls/hr IV Q6H PRN PRN Reason: Nausea And Vomiting Stop: 10/21/23 22:53 Last Infusion: 09/30/23 08:52 Dose: Infused Metronidazole (Flagyl) 500 mg in 100 mls @ 100 mls/hr IV Q8H [facility]; Protocol Stop: 10/03/23 13:29 Last Admin: 09/30/23 11:40 Dose: 100 mls/hr Cefepime HCl 2,000 mg/ Syringe 20 mls @ 5 mls/min IV Q8H [facility]; Protocol Stop: 10/03/23 17:29 Last Admin: 09/30/23 10:58 Dose: 5 mls/min Ondansetron HCl 6 mg/ Dextrose 53 mls @ 200 mls/hr IV Q6H PRN PRN Reason: Nausea And Vomiting Stop: 10/26/23 14:55 Magnesium Oxide (Magnesium Oxide 400 Mg Tab) [facility] [place] Stop: 10/28/23 08:59 Last Admin: 09/30/23 09:52 Dose: 400 mg Mirabegron (Mirabegron Er 25 Mg Tab) 25 mg PO DAILY [facility] Stop: 10/27/23 08:59 Last Admin: 09/30/23 09:52 Dose: 25 mg Oxybutynin Chloride (Oxybutynin Chloride 5 Mg Tab) 5 mg PO BID [facility] Stop: 10/24/23 10:29 Last Admin: 09/30/23 09:52 Dose: 5 mg Pantoprazole Sodium (Pantoprazole 40 Mg Tab) 40 mg PO BID [facility] Stop: 10/26/23 08:59 Last Admin: 09/30/23 09:52 Dose: 40 mg Paroxetine HCl (Paroxetine Hcl 20 Mg Tab) 20 mg PO DAILY [facility] Stop: 10/21/23 10:00 Last Admin: 09/23/23 08:20 Dose: Not Given Phenazopyridine HCl (Phenazopyridine Hcl 100 Mg Tab) 100 mg PO TID PRN PRN Reason: Bladder pain Stop: 10/21/23 15:58 Last Admin: 09/21/23 16:51 Dose: 100 mg Polyethylene Glycol (Polyethylene (Miralax) 17 Gm Pack) 17 gm PO DAILY PRN PRN Reason: Constipation Stop: 10/21/23 18:19 Polyethylene Glycol (Polyethylene (Miralax) 17 Gm Pack) 17 gm PO BID [facility] Stop: 10/27/23 11:59 Last Admin: 09/30/23 09:52 Dose: Not Given Sodium Chloride (Sodium Chloride 0.65% Na Soln 45 Ml ([place])) 1 sprays NA PRN PRN PRN Reason: Nasal Congestion Stop: 10/21/23 12:39 Tramadol HCl (Tramadol Hcl 50 Mg Tablet) 25 mg PO Q4H PRN PRN Reason: Pain Stop: 10/25/23 15:28 Last Admin: 09/30/23 07:59 Dose: 25 mg
[2023-09-30 13:41] LABS: T4 Free Thyroxine 0.86 ng/dl (0.61-1.60)
[2023-09-30] MEDS ORDERED: SODIUM CHLORIDE 0.9% 1,000 ML IV SCH (15:30)
--- NOTE | 2023-09-30 15:42 | Communication Note ---
Date of Service: September 30, 2023 Assessment: Emphysematous gastritis Suprapubic catheter Stage IV sacral pressure ulcer Bedridden IMAGING: CT abd/pelvis on 09/26: 1. Anterior hernia mesh repair. 2. Suprapubic catheter terminates in the urinary bladder. 3. LEFT lower quadrant colostomy. No small bowel obstruction. No free intraperitoneal air. 4. Atelectasis at the LEFT lung base. Percutaneous colostomy tube. 5. Chronically fractured RIGHT femoral neck. Plan: - Please step down IV cefepime to oral Levofloxacin 750 mg daily along Flagyl 500 mg TID to complete a 2 week course for emphysematous gastritis with anticipated end date of Oct 07, 2023.
[2023-09-30] MEDS ORDERED: NSS + 20MEQ KCL 20 MEQ/1,000 ML BAG IV SCH (15:45)
--- NOTE | 2023-09-30 16:37 | Electrocardiogram Report ---
Test Reason : Blood Pressure : / mmHG Vent. Rate : 098 BPM Atrial Rate : 098 BPM P-R Int : 130 ms QRS Dur : 074 ms QT Int : 352 ms P-R-T Axes : 051 -22 039 degrees QTc Int : 449 ms Normal sinus rhythm Nonspecific ST abnormality Abnormal ECG When compared with ECG of 27-SEP-2023 21:43, No significant change was found Confirmed by Prasanth Bennett [id number] on 09/30/2023 4:37:15 PM Referred By: REFERRED SELF Confirmed By:Parish Bennett
[2023-09-30] MEDS: metroNIDAZOLE 500 MG TAB PO SCH (20:29)
[2023-10-01 07:03] LABS: BUN Creatinine Ratio 27.5 (10-20); Calcium 8.4 mg/dl (8.6-10.3); Creatinine Clr Calc Pharmacy 143.9 ml/min; Est GFR (African American) 139.5 ml/min; Est GFR (Non-African American) 120.3 ml/min; Phosphorus 2.5 mg/dl (2.5-4.9)
[2023-10-01] MEDS: MIRABEGRON ER 25 MG TAB PO SCH (09:32)
[2023-10-01] MEDS: FLUTICASONE PROPIONATE NA SPR 16 GM BTL SCH (09:32)
[2023-10-01] MEDS: AZELASTINE HCL 0.1% NASAL 200 SPRAYS/27,400 MCG BTL SCH ×2 (09:32→20:44)
[2023-10-01] MEDS: POLYETHYLENE (MIRALAX) 17 GM PACK PO SCH ×2 (09:33→20:46)
[2023-10-01] MEDS: PANTOprazole 40 MG TAB PO SCH ×2 (09:34→20:45)
[2023-10-01] MEDS: metroNIDAZOLE 500 MG TAB PO SCH ×2 (09:34→09:38)
[2023-10-01] MEDS: oxyBUTYnin chloride 5 MG TAB PO SCH ×2 (09:35→20:46)
[2023-10-01] MEDS: PARoxetine HCL 20 MG TAB PO SCH (09:35)
[2023-10-01] MEDS: MAGNESIUM OXIDE 400 MG TAB PO SCH (09:36)
[2023-10-01] MEDS: metroNIDAZOLE Susp 50mg/ml PO SCH ×3 (11:36→21:27)
[2023-10-01] MEDS: levoFLOXacin 750 MG TAB PO SCH (11:37)
[2023-10-01] MEDS: SACCHAROMYCES BOULARDII 250 MG CAP PO SCH (11:38)
--- NOTE | 2023-10-01 13:21 | Hospitalist Progress Note ---
Date of Service October 01, 2023 Assessment & Plan (1) Complicated UTI (urinary tract infection): Plan: ABDOMINAL PAIN, EMPHYSEMATOUS GASTRITIS History of GERD Protonix IV twice daily -> switched to PO PPI GI consulted Status post EGD: Impression Emphysematous gastritis. Tolerating Diet PPI gtt. Broad spectrum abx to include strep viridans and anaerobic coverage. Avoid NSAIDS/Steroids On IV cefepime, flagyl General surgery consulted: No indication for surgery at this time Monitor closely ---09/24 CTA abd/pelvis - 1. Improving findings related to the previously described emphysematous gastritis. There is decreased gastric distention, improving gastric wall thickening with adjacent perigastric inflammatory stranding.2. No hiatal hernia or gastric volvulus3. Sacral decubitus ulcer without abscess. 4. Left-sided percutaneous nephrostomy catheter in place with numerous left ureteral calculi re-demonstrated. There is dilation of the left renal pelvis without significant hydronephrosis.5. Trace left pleural effusion with chronic left hemidiaphragm elevation.6. Unremarkable CTA portion of the study. Advanced diet per GI -> however pt then developed nausea and vomiting, made NPO and discussed with GI and surgery and CT abd/pelvis ordered again on 09/26 --CT a/p 09/26/23: - 1. Anterior hernia mesh repair. 2. Suprapubic catheter terminates in the urinary bladder.3. LEFT lower quadrant colostomy. No small bowel obstruction. No free intraperitoneal air. 4. Atelectasis at the LEFT lung base. Percutaneous colostomy tube.09/27 - Discussed w/ GI - CT scan showed healed emphysematous gastritis. Has severe constipation due to Paraplegia hence restarted back on Miralax BID. Advance diet. Pt was tolerating diet, stool moving via ostomy 09/30 - pt feels nauseated palpitations EKG : NSR, NO PAC/PVC, no ST or t wave change 98, no change from admitting, trop x 2 negative, TSH 16.25, will get T4 ID recommended stepping down to levaquin 750mg po daily and flagyl 500mg TID through 10/07/23. Pt refusing oral flagyl as too large so will switch to suspension. So far he is tolerating Plan is to discharge tomorrow as he is medically stable POSSIBLE UTI - ruled out Suprapubic catheter and left percutaneous nephrostomy related UTI recurrent UTIs secondary to neurogenic bladder secondary to spina bifida status post suprapubic catheter placement/hx staghorn calculi as per records/left hydronephrosis status post PCNL, Failed outpatient treatment Urine culture: More than 3 organisms, recommend recollection Repeat urine culture: as above Blood cultures: Negative so far ID consulted- stop dapto and obtain UA/ cultx from nephrostomy tube, cultx negative On IV cefepime, flagyl seen and evaluated by urology - no current acute UTI, pt has chronic colonization at this time HYPOKALEMIA secondary to transient diarrhea illness replace and monitor history of colostomy chronic anemia, hemoglobin at baseline chronic decubitus wound ,stage IV pressure ulcer, POA - pt follows with wound care as outpt - Wound care consult placed anxiety/mood disorder, at baseline past tobacco abuse History of VRE DVT prophylaxis per Lovenox subcu Full code Disposition Lives at home Patient's brother helping with patient's care at home plan is to return home when stable Pt is medically ready to be discharged, he is not interested in discharge today as he does not feel ready, he is refusing Rehab. He is encouraged that his sx will continue to improve and we will see how he is doing on oral antibiotics and re eval Pt was seen and examined in collaboration with Dr. Garcia, please see addendum A total of 55 minutes was spent coordinating, documenting, and providing care for this patient excluding time spent in the performance of separately billed services. This included personally viewing all current laboratories and imaging studies, medication reconciliation, outpatient chart review, and discussion with specialists. Admission and Anticipated Discharge Date Admission Date: September 21, 2023 Supervising Physician Co-Signing Physician Notes Pt seen and examined by me, care coordinated with Argenis See PA-C, pls refer to her note above for further detail. Pt has been able to tolerate food for several days now. He was started on miralax by GI as he was constipated which most likely contributed to his nausea. he has been feeling well however continues to have problems to take PO meds. ID was contacted and pt was switched to levaquin and flagyl PO forms. Otherwise no fevers chills chest pain shortness of breath. Plan to discuss discharge with pt's brother and hopefully discharge tomorrow. MD Radha Subjective Patient was seen and examined in 320. Follow-up emphysematous gastritis. He feels better today than yesterday. He is no longer having palpitations or chest discomfort. He tolerated his breakfast and then tried Greek toast. After eating Greek toast he then got an uneasy feeling in his stomach. He states he still does not feel ready to go home. He has been resistant to trying pill form and medications due to having trouble swallowing. He denies any fever, chills, sweats, lightheadedness, dizziness, chest pain, shortness of breath, nausea, vomiting. He currently is refusing to go to rehab and plans to be discharged home. Review of Systems Review of Systems: All systems reviewed & are unremarkable except as noted in HPI & below Physical Exam Physical Exam: Gen: WD/WN, NAD, flat affected, A&O x3 HEENT: Normocephalic, atraumatic, conjunctivae moist, sclerae anicteric, mucous membranes moist. Lung: Clear to Auscultation bilaterally, no wheezes/rales/rhonchi Heart: Regular rate, regular rhythm, no murmurs, rubs, or gallops Abdomen: Soft, tender in epigastrum, ND +BS x 4 + colostomy, + suprapubic cath, no surrounding erythema Extremities: b/l lymphedema, paraplegia Skin: Warm, no rash, negative turgor. Results & Data Results & Data Vital Signs (Past 12 Hours) Vital Signs Temp Pulse Resp BP Pulse Ox O2 Del Method 10/01/23 07:23 36.6 C 85 16 111/63 99 Room Air Laboratory Results I have independently reviewed and interpreted patient's labs including BMP, mag, phos Medications Administered Current Inpatient Medications Acetaminophen (Acetaminophen 325 Mg Tab) 650 mg PO Q4H PRN PRN Reason: pain/fever Stop: 10/21/23 10:00 Last Admin: 09/25/23 11:42 Dose: 650 mg Azelastine HCl (Azelastine Hcl 0.1% Nasal 200 Sprays/27,400 Mcg Btl) 2 sprays NA [facility] Stop: 10/21/23 10:00 Last Admin: 10/01/23 09:32 Dose: Not Given Fluticasone Propionate (Fluticasone Propionate Na Spr 16 Gm Btl) 2 sprays NA QAM [facility] Stop: 10/21/23 10:00 Last Admin: 10/01/23 09:32 Dose: Not Given Promethazine HCl 12.5 mg/ (Sodium Chloride) 50.5 mls @ 202 mls/hr IV Q6H PRN PRN Reason: Nausea And Vomiting Stop: 10/21/23 22:53 Last Infusion: 09/30/23 08:52 Dose: Infused Ondansetron HCl 6 mg/ Dextrose 53 mls @ 200 mls/hr IV Q6H PRN PRN Reason: Nausea And Vomiting Stop: 10/26/23 14:55 Levofloxacin (Levofloxacin 750 Mg Tab) 750 mg PO DAILY@1100 [facility]; Protocol Stop: 10/09/23 10:59 Last Admin: 10/01/23 11:37 Dose: 750 mg Magnesium Oxide (Magnesium Oxide 400 Mg Tab) 400 mg PO [facility] Stop: 10/28/23 08:59 Last Admin: 10/01/23 09:36 Dose: 400 mg Metronidazole (Metronidazole Susp 50mg/Ml) 500 mg PO TID [facility]; Protocol Stop: 10/07/23 21:01 Last Admin: 10/01/23 11:36 Dose: 500 mg Mirabegron (Mirabegron Er 25 Mg Tab) 25 mg PO DAILY [facility] Stop: 10/27/23 08:59 Last Admin: 10/01/23 09:32 Dose: 25 mg Oxybutynin Chloride (Oxybutynin Chloride 5 Mg Tab) 5 mg PO BID [facility] Stop: 10/24/23 10:29 Last Admin: 10/01/23 09:35 Dose: 5 mg Pantoprazole Sodium (Pantoprazole 40 Mg Tab) 40 mg PO BID [facility] Stop: 10/26/23 08:59 Last Admin: 10/01/23 09:34 Dose: 40 mg Paroxetine HCl (Paroxetine Hcl 20 Mg Tab) 20 mg PO DAILY [facility] Stop: 10/21/23 10:00 Last Admin: 10/01/23 09:35 Dose: 20 mg Phenazopyridine HCl (Phenazopyridine Hcl 100 Mg Tab) 100 mg PO TID PRN PRN Reason: Bladder pain Stop: 10/21/23 15:58 Last Admin: 09/21/23 16:51 Dose: 100 mg Polyethylene Glycol (Polyethylene (Miralax) 17 Gm Pack) 17 gm PO DAILY PRN PRN Reason: Constipation Stop: 10/21/23 18:19 Polyethylene Glycol (Polyethylene (Miralax) 17 Gm Pack) 17 gm PO BID [facility] Stop: 10/27/23 11:59 Last Admin: 10/01/23 09:33 Dose: 17 gm Saccharomyces Boulardii (Saccharomyces Boulardii 250 Mg Cap) 250 mg PO DAILY [facility] Stop: 10/31/23 10:39 Last Admin: 10/01/23 11:38 Dose: 250 mg Sodium Chloride (Sodium Chloride 0.65% Na Soln 45 Ml ([place])) 1 sprays NA PRN PRN PRN Reason: Nasal Congestion Stop: 10/21/23 12:39 Tramadol HCl (Tramadol Hcl 50 Mg Tablet) 25 mg PO Q4H PRN PRN Reason: Pain Stop: 10/25/23 15:28 Last Admin: 09/30/23 07:59 Dose: 25 mg
[2023-10-02 07:15] LABS: Calcium 8.5 mg/dl (8.6-10.3); Magnesium 1.9 mg/dl (1.7-2.4); Potassium 4.3 mmol/L (3.5-5.1)
[2023-10-02 07:21] LABS: BUN Creatinine Ratio 31.4 (10-20); Creatinine Clr Calc Pharmacy 164.4 ml/min; Est GFR (African American) 147.4 ml/min; Est GFR (Non-African American) 127.1 ml/min
[2023-10-02] MEDS: POLYETHYLENE (MIRALAX) 17 GM PACK PO SCH ×4 (09:36→20:24)
[2023-10-02] MEDS: AZELASTINE HCL 0.1% NASAL 200 SPRAYS/27,400 MCG BTL SCH ×2 (09:37→20:34)
[2023-10-02] MEDS: FLUTICASONE PROPIONATE NA SPR 16 GM BTL SCH (09:37)
[2023-10-02] MEDS: oxyBUTYnin chloride 5 MG TAB PO SCH ×2 (09:38→20:35)
[2023-10-02] MEDS: PARoxetine HCL 20 MG TAB PO SCH (09:38)
[2023-10-02] MEDS: MAGNESIUM OXIDE 400 MG TAB PO SCH (09:39)
[2023-10-02] MEDS: MIRABEGRON ER 25 MG TAB PO SCH (09:39)
[2023-10-02] MEDS: PANTOprazole 40 MG TAB PO SCH ×2 (09:39→20:35)
[2023-10-02] MEDS: SACCHAROMYCES BOULARDII 250 MG CAP PO SCH (09:39)
[2023-10-02] MEDS: metroNIDAZOLE Susp 50mg/ml PO SCH ×3 (10:46→20:34)
--- NOTE | 2023-10-02 12:08 | Hospitalist Progress Note ---
Date of Service October 02, 2023 Assessment & Plan (1) Complicated UTI (urinary tract infection): Plan: ABDOMINAL PAIN, EMPHYSEMATOUS GASTRITIS History of GERD Protonix IV twice daily -> switched to PO PPI GI consulted Status post EGD: Impression Emphysematous gastritis. Tolerating Diet PPI gtt. Broad spectrum abx to include strep viridans and anaerobic coverage. Avoid NSAIDS/Steroids On IV cefepime, flagyl General surgery consulted: No indication for surgery at this time Monitor closely ---09/24 CTA abd/pelvis - 1. Improving findings related to the previously described emphysematous gastritis. There is decreased gastric distention, improving gastric wall thickening with adjacent perigastric inflammatory stranding.2. No hiatal hernia or gastric volvulus3. Sacral decubitus ulcer without abscess. 4. Left-sided percutaneous nephrostomy catheter in place with numerous left ureteral calculi re-demonstrated. There is dilation of the left renal pelvis without significant hydronephrosis.5. Trace left pleural effusion with chronic left hemidiaphragm elevation.6. Unremarkable CTA portion of the study. Advanced diet per GI -> however pt then developed nausea and vomiting, made NPO and discussed with GI and surgery and CT abd/pelvis ordered again on 09/26 --CT a/p 09/26/23: - 1. Anterior hernia mesh repair. 2. Suprapubic catheter terminates in the urinary bladder.3. LEFT lower quadrant colostomy. No small bowel obstruction. No free intraperitoneal air. 4. Atelectasis at the LEFT lung base. Percutaneous colostomy tube.09/27 - Discussed w/ GI - CT scan showed healed emphysematous gastritis. Has severe constipation due to Paraplegia hence restarted back on Miralax BID. Advance diet. Pt was tolerating diet, stool moving via ostomy 09/30 - pt feels nauseated palpitations EKG : NSR, NO PAC/PVC, no ST or t wave change 98, no change from admitting, trop x 2 negative, TSH 16.25, will get T4 ID recommended stepping down to levaquin 750mg po daily and flagyl 500mg TID through 10/07/23. Pt refusing oral flagyl as too large so will switch to suspension. So far he is tolerating Pt is medically stable for discharge, but feels, "he isn't ready." Will give him additional day to tolerate oral antibiotics in hopes to d/c 10/03. POSSIBLE UTI - ruled out Suprapubic catheter and left percutaneous nephrostomy related UTI recurrent UTIs secondary to neurogenic bladder secondary to spina bifida status post suprapubic catheter placement/hx staghorn calculi as per records/left hydronephrosis status post PCNL, Failed outpatient treatment Urine culture: More than 3 organisms, recommend recollection Repeat urine culture: as above Blood cultures: Negative so far UA/ cultx from nephrostomy tube, cultx negative seen and evaluated by urology - no current acute UTI, pt has chronic colonization at this time HYPOKALEMIA secondary to transient diarrhea illness replace and monitor history of colostomy chronic anemia, hemoglobin at baseline chronic decubitus wound ,stage IV pressure ulcer, POA - pt follows with wound care as outpt - Wound care consult placed anxiety/mood disorder, at baseline past tobacco abuse History of VRE DVT prophylaxis per Lovenox subcu Full code Disposition Lives at home Patient's brother helping with patient's care at home plan is to return home when stable Pt is medically ready to be discharged, he is not interested in discharge today as he does not feel ready, he is refusing Rehab. He is encouraged that his sx will continue to improve and we will see how he is doing on oral antibiotics Pt was seen and examined in collaboration with Dr. Munoz, please see addendum A total of 45 minutes was spent coordinating, documenting, and providing care for this patient excluding time spent in the performance of separately billed services. This included personally viewing all current laboratories and imaging studies, medication reconciliation, outpatient chart review, and discussion with specialists. Admission and Anticipated Discharge Date Admission Date: September 21, 2023 Supervising Physician Co-Signing Physician Notes Attending Addendum: care coordinated with CELE See please refer to her notes for full details, I agree with her notes patient seen and examined, records reviewed by myself as well diagnoses and plan of care as per CELE See's notes Rishabh Munoz MD Subjective Patient was seen and examined in 320. Follow-up emphysematous gastritis. He is tolerating antibiotics thus far. He still feels his stomach is, "churning." She denies f/c/s, chest pain, sob, n/v/d. He is tolerating meals thus far. He states he still, "doesn't feel ready." He would like another day. Review of Systems Review of Systems: All systems reviewed & are unremarkable except as noted in HPI & below Physical Exam Physical Exam: Gen: WD/WN, NAD, flat affected, A&O x3 HEENT: Normocephalic, atraumatic, conjunctivae moist, sclerae anicteric, mucous membranes moist. Lung: Clear to Auscultation bilaterally, no wheezes/rales/rhonchi Heart: Regular rate, regular rhythm, no murmurs, rubs, or gallops Abdomen: Soft, tender in epigastrum, ND +BS x 4 + colostomy, + suprapubic cath, no surrounding erythema Extremities: b/l lymphedema, paraplegia Skin: Warm, no rash, negative turgor. Results & Data Results & Data Vital Signs (Past 12 Hours) Vital Signs Temp Pulse Resp BP Pulse Ox O2 Del Method 10/02/23 07:35 36.9 C 85 16 115/70 99 Room Air Laboratory Results [facility] 10/02/23 05:35 Sodium 137 Potassium 4.3 Chloride 105 Carbon Dioxide 30 BUN 11 Creatinine 0.35 L Glucose 104 H Calcium 8.5 L I personally reviewed and interpreted pts BMP Medications Administered Current Inpatient Medications Acetaminophen (Acetaminophen 325 Mg Tab) 650 mg PO Q4H PRN PRN Reason: pain/fever Stop: 10/21/23 10:00 Last Admin: 09/25/23 11:42 Dose: 650 mg Azelastine HCl (Azelastine Hcl 0.1% Nasal 200 Sprays/27,400 Mcg Btl) 2 sprays NA [facility] Stop: 10/21/23 10:00 Last Admin: 10/02/23 09:37 Dose: Not Given Fluticasone Propionate (Fluticasone Propionate Na Spr 16 Gm Btl) 2 sprays NA QAM [facility] Stop: 10/21/23 10:00 Last Admin: 10/02/23 09:37 Dose: Not Given Promethazine HCl 12.5 mg/ (Sodium Chloride) 50.5 mls @ 202 mls/hr IV Q6H PRN PRN Reason: Nausea And Vomiting Stop: 10/21/23 22:53 Last Infusion: 09/30/23 08:52 Dose: Infused Ondansetron HCl 6 mg/ Dextrose 53 mls @ 200 mls/hr IV Q6H PRN PRN Reason: Nausea And Vomiting Stop: 10/26/23 14:55 Levofloxacin (Levofloxacin 750 Mg Tab) 750 mg PO DAILY@1100 [facility]; Protocol Stop: 10/09/23 10:59 Last Admin: 10/02/23 13:10 Dose: 750 mg Magnesium Oxide (Magnesium Oxide 400 Mg Tab) 400 mg PO QAM [facility] Stop: 10/28/23 08:59 Last Admin: 10/02/23 09:39 Dose: 400 mg Metronidazole (Metronidazole Susp 50mg/Ml) 500 mg PO TID [facility]; Protocol Stop: 10/07/23 21:01 Last Admin: 10/02/23 10:46 Dose: 500 mg Mirabegron (Mirabegron Er 25 Mg Tab) 25 mg PO DAILY [facility] Stop: 10/27/23 08:59 Last Admin: 10/02/23 09:39 Dose: 25 mg Oxybutynin Chloride (Oxybutynin Chloride 5 Mg Tab) 5 mg PO BID [facility] Stop: 10/24/23 10:29 Last Admin: 10/02/23 09:38 Dose: 5 mg Pantoprazole Sodium (Pantoprazole 40 Mg Tab) 40 mg PO BID [facility] Stop: 10/26/23 08:59 Last Admin: 10/02/23 09:39 Dose: 40 mg Paroxetine HCl (Paroxetine Hcl 20 Mg Tab) 20 mg PO DAILY [facility] Stop: 10/21/23 10:00 Last Admin: 10/02/23 09:38 Dose: 20 mg Phenazopyridine HCl (Phenazopyridine Hcl 100 Mg Tab) 100 mg PO TID PRN PRN Reason: Bladder pain Stop: 10/21/23 15:58 Last Admin: 09/21/23 16:51 Dose: 100 mg Polyethylene Glycol (Polyethylene (Miralax) 17 Gm Pack) 17 gm PO DAILY PRN PRN Reason: Constipation Stop: 10/21/23 18:19 Polyethylene Glycol (Polyethylene (Miralax) 17 Gm Pack) 17 gm PO TID [facility] Stop: 11/01/23 09:11 Last Admin: 10/02/23 13:43 Dose: Not Given Saccharomyces Boulardii (Saccharomyces Boulardii 250 Mg Cap) 250 mg PO DAILY [facility] Stop: 10/31/23 10:39 Last Admin: 10/02/23 09:39 Dose: 250 mg Sodium Chloride (Sodium Chloride 0.65% Na Soln 45 Ml ([place])) 1 sprays NA PRN PRN PRN Reason: Nasal Congestion Stop: 10/21/23 12:39 Tramadol HCl (Tramadol Hcl 50 Mg Tablet) 25 mg PO Q4H PRN PRN Reason: Pain Stop: 10/25/23 15:28 Last Admin: 09/30/23 07:59 Dose: 25 mg
[2023-10-02] MEDS: levoFLOXacin 750 MG TAB PO SCH (13:10)
[2023-10-02] MEDS: PROMETHAZINE HCL 12.5 MG in SODIUM CHLORIDE 0.9% 50 ML IV PRN (20:59)
[2023-10-03] MEDS: AZELASTINE HCL 0.1% NASAL 200 SPRAYS/27,400 MCG BTL SCH ×2 (09:44→21:22)
[2023-10-03] MEDS: FLUTICASONE PROPIONATE NA SPR 16 GM BTL SCH (09:44)
[2023-10-03] MEDS: MAGNESIUM OXIDE 400 MG TAB PO SCH (09:44)
[2023-10-03] MEDS: metroNIDAZOLE Susp 50mg/ml PO SCH ×3 (09:45→21:22)
[2023-10-03] MEDS: MIRABEGRON ER 25 MG TAB PO SCH (09:46)
[2023-10-03] MEDS: oxyBUTYnin chloride 5 MG TAB PO SCH ×2 (09:46→21:21)
[2023-10-03] MEDS: SACCHAROMYCES BOULARDII 250 MG CAP PO SCH (09:47)
[2023-10-03] MEDS: PARoxetine HCL 20 MG TAB PO SCH (09:47)
[2023-10-03] MEDS: PANTOprazole 40 MG TAB PO SCH ×2 (09:47→21:21)
[2023-10-03] MEDS: POLYETHYLENE (MIRALAX) 17 GM PACK PO SCH ×3 (09:48→21:22)
[2023-10-03] MEDS: levoFLOXacin 750 MG TAB PO SCH (12:40)
--- NOTE | 2023-10-03 13:26 | Hospitalist Progress Note ---
Date of Service October 03, 2023 Assessment & Plan (1) Complicated UTI (urinary tract infection): Plan: ABDOMINAL PAIN, EMPHYSEMATOUS GASTRITIS History of GERD Protonix IV twice daily -> switched to PO PPI GI consulted Status post EGD: Impression Emphysematous gastritis. Tolerating Diet PPI gtt. Broad spectrum abx to include strep viridans and anaerobic coverage. Avoid NSAIDS/Steroids On IV cefepime, flagyl General surgery consulted: No indication for surgery at this time Monitor closely ---09/24 CTA abd/pelvis - 1. Improving findings related to the previously described emphysematous gastritis. There is decreased gastric distention, improving gastric wall thickening with adjacent perigastric inflammatory stranding.2. No hiatal hernia or gastric volvulus3. Sacral decubitus ulcer without abscess. 4. Left-sided percutaneous nephrostomy catheter in place with numerous left ureteral calculi re-demonstrated. There is dilation of the left renal pelvis without significant hydronephrosis.5. Trace left pleural effusion with chronic left hemidiaphragm elevation.6. Unremarkable CTA portion of the study. Advanced diet per GI -> however pt then developed nausea and vomiting, made NPO and discussed with GI and surgery and CT abd/pelvis ordered again on 09/26 --CT a/p 09/26/23: - 1. Anterior hernia mesh repair. 2. Suprapubic catheter terminates in the urinary bladder.3. LEFT lower quadrant colostomy. No small bowel obstruction. No free intraperitoneal air. 4. Atelectasis at the LEFT lung base. Percutaneous colostomy tube.09/27 - Discussed w/ GI - CT scan showed healed emphysematous gastritis. Has severe constipation due to Paraplegia hence restarted back on Miralax BID. Advance diet. Pt was tolerating diet, stool moving via ostomy 09/30 - pt feels nauseated palpitations EKG : NSR, NO PAC/PVC, no ST or t wave change 98, no change from admitting, trop x 2 negative, TSH 16.25, will get T4 ID recommended stepping down to levaquin 750mg po daily and flagyl 500mg TID through 10/07/23. Pt refusing oral flagyl as too large so will switch to suspension. So far he is tolerating Pt is medically stable for discharge, but feels, "he isn't ready." Will give him additional day to tolerate oral antibiotics in hopes to d/c 10/03. 10/03 Reports some abdominal discomfort today Tolerating diet well No changes with BM Continue to observe while on p.o. Levaquin and metronidazole Reevaluate tomorrow POSSIBLE UTI - ruled out Suprapubic catheter and left percutaneous nephrostomy related UTI recurrent UTIs secondary to neurogenic bladder secondary to spina bifida status post suprapubic catheter placement/hx staghorn calculi as per records/left hydronephrosis status post PCNL, Failed outpatient treatment Urine culture: More than 3 organisms, recommend recollection Repeat urine culture: as above Blood cultures: Negative so far UA/ cultx from nephrostomy tube, cultx negative seen and evaluated by urology - no current acute UTI, pt has chronic colonization at this time HYPOKALEMIA secondary to transient diarrhea illness replace and monitor history of colostomy chronic anemia, hemoglobin at baseline chronic decubitus wound ,stage IV pressure ulcer, POA - pt follows with wound care as outpt - Wound care consult placed anxiety/mood disorder, at baseline past tobacco abuse History of VRE DVT prophylaxis per Lovenox subcu Full code Disposition Lives at home Patient's brother helping with patient's care at home plan is to return home when stable Admission and Anticipated Discharge Date Admission Date: September 21, 2023 Subjective Follow-up for emphysematous gastritis, etc. Seen resting in bed, comfortable, using his laptop States his stomach is in knots today No nausea, no fevers or chills, tolerating diet well Normal stoma output No other new symptoms Review of Systems Review of Systems: all noted and negative except for above Results & Data Results & Data Vital Signs (Past 12 Hours) Vital Signs Temp Pulse BP Pulse Ox O2 Del Method 10/03/23 07:52 36.6 C 84 110/67 97 Room Air
[2023-10-04] MEDS: AZELASTINE HCL 0.1% NASAL 200 SPRAYS/27,400 MCG BTL SCH ×2 (09:18→20:48)
[2023-10-04] MEDS: FLUTICASONE PROPIONATE NA SPR 16 GM BTL SCH (09:19)
[2023-10-04] MEDS: MAGNESIUM OXIDE 400 MG TAB PO SCH (09:19)
[2023-10-04] MEDS: MIRABEGRON ER 25 MG TAB PO SCH (09:20)
[2023-10-04] MEDS: PARoxetine HCL 20 MG TAB PO SCH (09:21)
[2023-10-04] MEDS: oxyBUTYnin chloride 5 MG TAB PO SCH ×2 (09:21→20:48)
[2023-10-04] MEDS: PANTOprazole 40 MG TAB PO SCH ×2 (09:22→20:48)
[2023-10-04] MEDS: metroNIDAZOLE Susp 50mg/ml PO SCH ×3 (09:22→20:48)
[2023-10-04] MEDS: POLYETHYLENE (MIRALAX) 17 GM PACK PO SCH ×3 (09:23→20:48)
[2023-10-04] MEDS: SACCHAROMYCES BOULARDII 250 MG CAP PO SCH (09:24)
[2023-10-04] MEDS: levoFLOXacin 750 MG TAB PO SCH (12:36)
--- NOTE | 2023-10-04 14:23 | Hospitalist Progress Note ---
Date of Service October 04, 2023 Assessment & Plan (1) Complicated UTI (urinary tract infection): Plan: ABDOMINAL PAIN, EMPHYSEMATOUS GASTRITIS History of GERD Protonix IV twice daily -> switched to PO PPI GI consulted Status post EGD: Impression Emphysematous gastritis. Tolerating Diet PPI gtt. Broad spectrum abx to include strep viridans and anaerobic coverage. Avoid NSAIDS/Steroids On IV cefepime, flagyl General surgery consulted: No indication for surgery at this time Monitor closely ---09/24 CTA abd/pelvis - 1. Improving findings related to the previously described emphysematous gastritis. There is decreased gastric distention, improving gastric wall thickening with adjacent perigastric inflammatory stranding.2. No hiatal hernia or gastric volvulus3. Sacral decubitus ulcer without abscess. 4. Left-sided percutaneous nephrostomy catheter in place with numerous left ureteral calculi re-demonstrated. There is dilation of the left renal pelvis without significant hydronephrosis.5. Trace left pleural effusion with chronic left hemidiaphragm elevation.6. Unremarkable CTA portion of the study. Advanced diet per GI -> however pt then developed nausea and vomiting, made NPO and discussed with GI and surgery and CT abd/pelvis ordered again on 09/26 --CT a/p 09/26/23: - 1. Anterior hernia mesh repair. 2. Suprapubic catheter terminates in the urinary bladder.3. LEFT lower quadrant colostomy. No small bowel obstruction. No free intraperitoneal air. 4. Atelectasis at the LEFT lung base. Percutaneous colostomy tube.09/27 - Discussed w/ GI - CT scan showed healed emphysematous gastritis. Has severe constipation due to Paraplegia hence restarted back on Miralax BID. Advance diet. Pt was tolerating diet, stool moving via ostomy 09/30 - pt feels nauseated palpitations EKG : NSR, NO PAC/PVC, no ST or t wave change 98, no change from admitting, trop x 2 negative, TSH 16.25, will get T4 ID recommended stepping down to levaquin 750mg po daily and flagyl 500mg TID through 10/07/23. Pt refusing oral flagyl as too large so will switch to suspension. So far he is tolerating Pt is medically stable for discharge, but feels, "he isn't ready." Will give him additional day to tolerate oral antibiotics in hopes to d/c 10/03. 10/03 Reports some abdominal discomfort today Tolerating diet well No changes with BM Continue to observe while on p.o. Levaquin and metronidazole Reevaluate tomorrow 10/04 Abdominal discomfort resolved Tolerating diet well Continue Levaquin plus metronidazole until October 07, 2023 POSSIBLE UTI - ruled out Suprapubic catheter and left percutaneous nephrostomy related UTI recurrent UTIs secondary to neurogenic bladder secondary to spina bifida status post suprapubic catheter placement/hx staghorn calculi as per records/left hydronephrosis status post PCNL, Failed outpatient treatment Urine culture: More than 3 organisms, recommend recollection Repeat urine culture: as above Blood cultures: Negative so far UA/ cultx from nephrostomy tube, cultx negative seen and evaluated by urology - no current acute UTI, pt has chronic colonization at this time HYPOKALEMIA secondary to transient diarrhea illness Replaced Potassium 4.3 history of colostomy No issues chronic anemia, hemoglobin at baseline chronic decubitus wound ,stage IV pressure ulcer, POA - pt follows with wound care as outpt - Wound care consult placed anxiety/mood disorder, at baseline past tobacco abuse History of VRE 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 Resting in bed, sitting up, not in distress, comfortable States he feels fine overall No abdominal pain, ostomy output at baseline No fevers or chills, chest pain, shortness of breath, nausea vomiting No other new symptoms Review of Systems Review of Systems: all noted and negative except for above Results & Data Results & Data Vital Signs (Past 12 Hours) Vital Signs Temp Pulse Resp BP Pulse Ox O2 Del Method 10/04/23 07:27 36.8 C 88 16 116/76 98 Room Air all noted and reviewed including below
[2023-10-05] MEDS: PHENAZOPYRIDINE HCL 100 MG TAB PO PRN (08:37)
[2023-10-05] MEDS: PANTOprazole 40 MG TAB PO SCH ×2 (08:37→20:15)
[2023-10-05] MEDS: AZELASTINE HCL 0.1% NASAL 200 SPRAYS/27,400 MCG BTL SCH ×2 (08:37→20:14)
[2023-10-05] MEDS: FLUTICASONE PROPIONATE NA SPR 16 GM BTL SCH (08:38)
[2023-10-05] MEDS: oxyBUTYnin chloride 5 MG TAB PO SCH ×2 (08:38→20:14)
[2023-10-05] MEDS: MAGNESIUM OXIDE 400 MG TAB PO SCH (08:38)
[2023-10-05] MEDS: PARoxetine HCL 20 MG TAB PO SCH (08:38)
[2023-10-05] MEDS: SACCHAROMYCES BOULARDII 250 MG CAP PO SCH (08:38)
[2023-10-05] MEDS: MIRABEGRON ER 25 MG TAB PO SCH (08:39)
[2023-10-05] MEDS: POLYETHYLENE (MIRALAX) 17 GM PACK PO SCH ×3 (08:40→20:16)
[2023-10-05] MEDS: metroNIDAZOLE Susp 50mg/ml PO SCH ×3 (08:46→20:14)
[2023-10-05] MEDS: levoFLOXacin 750 MG TAB PO SCH (13:37)
--- NOTE | 2023-10-05 18:07 | Hospitalist Progress Note ---
Date of Service October 05, 2023 Assessment & Plan (1) Complicated UTI (urinary tract infection): Plan: ABDOMINAL PAIN, EMPHYSEMATOUS GASTRITIS History of GERD Protonix IV twice daily -> switched to PO PPI GI consulted Status post EGD: Impression Emphysematous gastritis. Tolerating Diet PPI gtt. Broad spectrum abx to include strep viridans and anaerobic coverage. Avoid NSAIDS/Steroids On IV cefepime, flagyl General surgery consulted: No indication for surgery at this time Monitor closely ---09/24 CTA abd/pelvis - 1. Improving findings related to the previously described emphysematous gastritis. There is decreased gastric distention, improving gastric wall thickening with adjacent perigastric inflammatory stranding.2. No hiatal hernia or gastric volvulus3. Sacral decubitus ulcer without abscess. 4. Left-sided percutaneous nephrostomy catheter in place with numerous left ureteral calculi re-demonstrated. There is dilation of the left renal pelvis without significant hydronephrosis.5. Trace left pleural effusion with chronic left hemidiaphragm elevation.6. Unremarkable CTA portion of the study. Advanced diet per GI -> however pt then developed nausea and vomiting, made NPO and discussed with GI and surgery and CT abd/pelvis ordered again on 09/26 --CT a/p 09/26/23: - 1. Anterior hernia mesh repair. 2. Suprapubic catheter terminates in the urinary bladder.3. LEFT lower quadrant colostomy. No small bowel obstruction. No free intraperitoneal air. 4. Atelectasis at the LEFT lung base. Percutaneous colostomy tube.09/27 - Discussed w/ GI - CT scan showed healed emphysematous gastritis. Has severe constipation due to Paraplegia hence restarted back on Miralax BID. Advance diet. Pt was tolerating diet, stool moving via ostomy 09/30 - pt feels nauseated palpitations EKG : NSR, NO PAC/PVC, no ST or t wave change 98, no change from admitting, trop x 2 negative, TSH 16.25, will get T4 ID recommended stepping down to levaquin 750mg po daily and flagyl 500mg TID through 10/07/23. Pt refusing oral flagyl as too large so will switch to suspension. So far he is tolerating Pt is medically stable for discharge, but feels, "he isn't ready." Will give him additional day to tolerate oral antibiotics in hopes to d/c 10/03. 10/03 Reports some abdominal discomfort today Tolerating diet well No changes with BM Continue to observe while on p.o. Levaquin and metronidazole Reevaluate tomorrow 10/04 Abdominal discomfort resolved Tolerating diet well Continue Levaquin plus metronidazole until October 07, 202310/05 no abdominal pain continue Levaquin + Metronidazole POSSIBLE UTI - ruled out Suprapubic catheter and left percutaneous nephrostomy related UTI recurrent UTIs secondary to neurogenic bladder secondary to spina bifida status post suprapubic catheter placement/hx staghorn calculi as per records/left hydronephrosis status post PCNL, Failed outpatient treatment Urine culture: More than 3 organisms, recommend recollection Repeat urine culture: as above Blood cultures: Negative so far UA/ cultx from nephrostomy tube, cultx negative seen and evaluated by urology - no current acute UTI, pt has chronic colonization at this time HYPOKALEMIA secondary to transient diarrhea illness Replaced Potassium 4.3 history of colostomy No issues chronic anemia, hemoglobin at baseline chronic decubitus wound ,stage IV pressure ulcer, POA - pt follows with wound care as outpt - Wound care consult placed anxiety/mood disorder, at baseline past tobacco abuse History of VRE DVT prophylaxis per Lovenox subcu Full code Disposition Lives at home Patient's brother helping with patient's care at home plan is to return home when stable Admission and Anticipated Discharge Date Admission Date: September 21, 2023 Subjective ff up for gastritis, etc seen resting in bed, comfortable states he feels fine overall no abdominal pain no other new changes, symptoms Review of Systems Review of Systems: all noted and negative except for above Physical Exam Physical Exam: General- oriented x 3, not in distress, speaks in sentences with no effort or accessory muscle use Eyes- anicteric Neck- no JVD Lungs- clear breath sounds bilaterally, no crackles/wheezing Heart- normal rate, regular rhythm; no murmurs Abdomen- normal bowel sounds, nondistended, soft, no tenderness Extremities- no pretibial edema, no calf tenderness Neuro- alert, oriented x 3; no gross focal neurologic deficits Skin- warm & dry Results & Data Results & Data Vital Signs (Past 12 Hours) Vital Signs Temp Pulse Resp BP Pulse Ox O2 Del Method 10/05/23 14:58 36.6 C 89 16 118/71 97 Room Air 10/05/23 06:59 36.5 C 79 16 115/73 98 Room Air all noted and reviewed including below
[2023-10-06] MEDS: MAGNESIUM OXIDE 400 MG TAB PO SCH (08:58)
[2023-10-06] MEDS: PANTOprazole 40 MG TAB PO SCH ×2 (08:58→21:32)
[2023-10-06] MEDS: oxyBUTYnin chloride 5 MG TAB PO SCH ×2 (08:58→21:32)
[2023-10-06] MEDS: FLUTICASONE PROPIONATE NA SPR 16 GM BTL SCH (08:59)
[2023-10-06] MEDS: SACCHAROMYCES BOULARDII 250 MG CAP PO SCH (08:59)
[2023-10-06] MEDS: AZELASTINE HCL 0.1% NASAL 200 SPRAYS/27,400 MCG BTL SCH ×2 (08:59→21:23)
[2023-10-06] MEDS: PARoxetine HCL 20 MG TAB PO SCH (08:59)
[2023-10-06] MEDS: POLYETHYLENE (MIRALAX) 17 GM PACK PO SCH ×3 (08:59→21:32)
[2023-10-06] MEDS: MIRABEGRON ER 25 MG TAB PO SCH (09:00)
[2023-10-06] MEDS: metroNIDAZOLE Susp 50mg/ml PO SCH ×3 (09:04→21:32)
[2023-10-06] MEDS: PROMETHAZINE HCL 12.5 MG in SODIUM CHLORIDE 0.9% 50 ML IV PRN (11:55)
[2023-10-06] MEDS: levoFLOXacin 750 MG TAB PO SCH (11:59)
--- NOTE | 2023-10-06 15:17 | Hospitalist Progress Note ---
Date of Service October 06, 2023 Assessment & Plan (1) Complicated UTI (urinary tract infection): Plan: ABDOMINAL PAIN, EMPHYSEMATOUS GASTRITIS History of GERD Protonix IV twice daily -> switched to PO PPI GI consulted Status post EGD: Impression Emphysematous gastritis. Tolerating Diet PPI gtt. Broad spectrum abx to include strep viridans and anaerobic coverage. Avoid NSAIDS/Steroids On IV cefepime, flagyl General surgery consulted: No indication for surgery at this time Monitor closely ---09/24 CTA abd/pelvis - 1. Improving findings related to the previously described emphysematous gastritis. There is decreased gastric distention, improving gastric wall thickening with adjacent perigastric inflammatory stranding.2. No hiatal hernia or gastric volvulus3. Sacral decubitus ulcer without abscess. 4. Left-sided percutaneous nephrostomy catheter in place with numerous left ureteral calculi re-demonstrated. There is dilation of the left renal pelvis without significant hydronephrosis.5. Trace left pleural effusion with chronic left hemidiaphragm elevation.6. Unremarkable CTA portion of the study. Advanced diet per GI -> however pt then developed nausea and vomiting, made NPO and discussed with GI and surgery and CT abd/pelvis ordered again on 09/26 --CT a/p 09/26/23: - 1. Anterior hernia mesh repair. 2. Suprapubic catheter terminates in the urinary bladder.3. LEFT lower quadrant colostomy. No small bowel obstruction. No free intraperitoneal air. 4. Atelectasis at the LEFT lung base. Percutaneous colostomy tube.09/27 - Discussed w/ GI - CT scan showed healed emphysematous gastritis. Has severe constipation due to Paraplegia hence restarted back on Miralax BID. Advance diet. Pt was tolerating diet, stool moving via ostomy 09/30 - pt feels nauseated palpitations EKG : NSR, NO PAC/PVC, no ST or t wave change 98, no change from admitting, trop x 2 negative, TSH 16.25, will get T4 ID recommended stepping down to levaquin 750mg po daily and flagyl 500mg TID through 10/07/23. Pt refusing oral flagyl as too large so will switch to suspension. So far he is tolerating Pt is medically stable for discharge, but feels, "he isn't ready." Will give him additional day to tolerate oral antibiotics in hopes to d/c 10/03. 10/03 Reports some abdominal discomfort today Tolerating diet well No changes with BM Continue to observe while on p.o. Levaquin and metronidazole Reevaluate tomorrow 10/04 Abdominal discomfort resolved Tolerating diet well Continue Levaquin plus metronidazole until October 07, 202310/05 no abdominal pain continue Levaquin + Metronidazole 10/07 Stomach feels better Continue Levaquin, metronidazole, last day tomorrow POSSIBLE UTI - ruled out Suprapubic catheter and left percutaneous nephrostomy related UTI recurrent UTIs secondary to neurogenic bladder secondary to spina bifida status post suprapubic catheter placement/hx staghorn calculi as per records/left hydronephrosis status post PCNL, Failed outpatient treatment Urine culture: More than 3 organisms, recommend recollection Repeat urine culture: as above Blood cultures: Negative so far UA/ cultx from nephrostomy tube, cultx negative seen and evaluated by urology - no current acute UTI, pt has chronic colonization at this time HYPOKALEMIA secondary to transient diarrhea illness Replaced Potassium 4.3 history of colostomy No issues chronic anemia, hemoglobin at baseline chronic decubitus wound ,stage IV pressure ulcer, POA - pt follows with wound care as outpt - Wound care consult placed anxiety/mood disorder, at baseline past tobacco abuse History of VRE DVT prophylaxis per Lovenox subcu Full code Disposition Lives at home Patient's brother helping with patient's care at home plan is to return home when stable Admission and Anticipated Discharge Date Admission Date: September 21, 2023 Subjective Follow-up for gastritis, etc. Seen resting in bed comfortable, no distress States he feels fine overall Abdomen feels fine Colostomy output normal No other new symptom Review of Systems Review of Systems: all noted and negative except for above Physical Exam Physical Exam: General- oriented x 3, not in distress, speaks in sentences with no effort or accessory muscle use Eyes- anicteric Neck- no JVD Lungs- clear breath sounds bilaterally, no rales/wheezes Heart- normal rate, regular rhythm; no murmurs Abdomen- normal bowel sounds, nondistended, soft, nontender Colostomy: Brown formed stools Nephrostomy bag: Yellow urine Extremities- no pretibial edema, no calf tenderness Neuro- alert, oriented x 3; no gross focal neurologic deficits Skin- warm & dry Results & Data Results & Data Vital Signs (Past 12 Hours) Vital Signs Temp Pulse Resp BP Pulse Ox O2 Del Method 10/06/23 06:58 36.7 C 85 16 119/70 98 Room Air all noted and reviewed including below
[2023-10-07] MEDS: PANTOprazole 40 MG TAB PO SCH ×2 (08:35→20:52)
[2023-10-07] MEDS: PARoxetine HCL 20 MG TAB PO SCH (08:35)
[2023-10-07] MEDS: SACCHAROMYCES BOULARDII 250 MG CAP PO SCH (08:35)
[2023-10-07] MEDS: MAGNESIUM OXIDE 400 MG TAB PO SCH (08:35)
[2023-10-07] MEDS: oxyBUTYnin chloride 5 MG TAB PO SCH ×2 (08:36→20:52)
[2023-10-07] MEDS: PHENAZOPYRIDINE HCL 100 MG TAB PO PRN (08:36)
[2023-10-07] MEDS: MIRABEGRON ER 25 MG TAB PO SCH (08:37)
[2023-10-07] MEDS: POLYETHYLENE (MIRALAX) 17 GM PACK PO SCH ×3 (08:37→20:45)
[2023-10-07] MEDS: FLUTICASONE PROPIONATE NA SPR 16 GM BTL SCH (08:38)
[2023-10-07] MEDS: AZELASTINE HCL 0.1% NASAL 200 SPRAYS/27,400 MCG BTL SCH ×2 (08:38→20:45)
[2023-10-07] MEDS: metroNIDAZOLE Susp 50mg/ml PO SCH ×3 (08:45→20:52)
[2023-10-07] MEDS: levoFLOXacin 750 MG TAB PO SCH (11:18)
--- NOTE | 2023-10-07 15:48 | Hospitalist Progress Note ---
Date of Service October 07, 2023 Assessment & Plan (1) Complicated UTI (urinary tract infection): Plan: ABDOMINAL PAIN, EMPHYSEMATOUS GASTRITIS History of GERD Protonix IV twice daily -> switched to PO PPI GI consulted Status post EGD: Impression Emphysematous gastritis. Tolerating Diet PPI gtt. Broad spectrum abx to include strep viridans and anaerobic coverage. Avoid NSAIDS/Steroids On IV cefepime, flagyl General surgery consulted: No indication for surgery at this time Monitor closely ---09/24 CTA abd/pelvis - 1. Improving findings related to the previously described emphysematous gastritis. There is decreased gastric distention, improving gastric wall thickening with adjacent perigastric inflammatory stranding.2. No hiatal hernia or gastric volvulus3. Sacral decubitus ulcer without abscess. 4. Left-sided percutaneous nephrostomy catheter in place with numerous left ureteral calculi re-demonstrated. There is dilation of the left renal pelvis without significant hydronephrosis.5. Trace left pleural effusion with chronic left hemidiaphragm elevation.6. Unremarkable CTA portion of the study. Advanced diet per GI -> however pt then developed nausea and vomiting, made NPO and discussed with GI and surgery and CT abd/pelvis ordered again on 09/26 --CT a/p 09/26/23: - 1. Anterior hernia mesh repair. 2. Suprapubic catheter terminates in the urinary bladder.3. LEFT lower quadrant colostomy. No small bowel obstruction. No free intraperitoneal air. 4. Atelectasis at the LEFT lung base. Percutaneous colostomy tube.09/27 - Discussed w/ GI - CT scan showed healed emphysematous gastritis. Has severe constipation due to Paraplegia hence restarted back on Miralax BID. Advance diet. Pt was tolerating diet, stool moving via ostomy 09/30 - pt feels nauseated palpitations EKG : NSR, NO PAC/PVC, no ST or t wave change 98, no change from admitting, trop x 2 negative, TSH 16.25, will get T4 ID recommended stepping down to levaquin 750mg po daily and flagyl 500mg TID through 10/07/23. Pt refusing oral flagyl as too large so will switch to suspension. So far he is tolerating Pt is medically stable for discharge, but feels, "he isn't ready." Will give him additional day to tolerate oral antibiotics in hopes to d/c 10/03. 10/03 Reports some abdominal discomfort today Tolerating diet well No changes with BM Continue to observe while on p.o. Levaquin and metronidazole Reevaluate tomorrow 10/04 Abdominal discomfort resolved Tolerating diet well Continue Levaquin plus metronidazole until October 07, 202310/05 no abdominal pain continue Levaquin + Metronidazole 10/07 Stomach feels better Levaquin, metronidazole, last day today PT/OT eval today POSSIBLE UTI - ruled out Suprapubic catheter and left percutaneous nephrostomy related UTI recurrent UTIs secondary to neurogenic bladder secondary to spina bifida status post suprapubic catheter placement/hx staghorn calculi as per records/left hy dronephrosis status post PCNL, Failed outpatient treatment Urine culture: More than 3 organisms, recommend recollection Repeat urine culture: as above Blood cultures: Negative so far UA/ cultx from nephrostomy tube, cultx negative seen and evaluated by urology - no current acute UTI, pt has chronic colonization at this time HYPOKALEMIA secondary to transient diarrhea illness Replaced Potassium 4.3 history of colostomy No issues chronic anemia, hemoglobin at baseline chronic decubitus wound ,stage IV pressure ulcer, POA - pt follows with wound care as outpt - Wound care consult placed anxiety/mood disorder, at baseline past tobacco abuse History of VRE DVT prophylaxis per Lovenox subcu Full code Disposition Lives at home Patient's brother helping with patient's care at home plan is to return home when stable Admission and Anticipated Discharge Date Admission Date: September 21, 2023 Subjective ff up for gastritis, etc seen resting in bed, comfortable states he feels fine overall no abdominal pain, nausea no problems with colostomy, nephrostomy output feels weak today requests PT/OT eval no other new symptoms Review of Systems Review of Systems: all noted and negative except for above Physical Exam Physical Exam: General- oriented x 3, not in distress, speaks in sentences with no effort or accessory muscle use Eyes- anicteric Neck- no JVD Lungs- clear BS BL Heart- normal rate, regular rhythm; no murmurs Abdomen- normal bowel sounds, nondistended, soft, nontender colostomy: brown formed stool Extremities- no pretibial edema, no calf tenderness Neuro- alert, oriented x 3; no gross focal neurologic deficits Skin- warm & dry Results & Data Results & Data Vital Signs (Past 12 Hours) Vital Signs Temp Pulse Resp BP Pulse Ox O2 Del Method 10/07/23 14:29 36.8 C 87 16 112/65 97 Room Air 10/07/23 07:14 36.8 C 88 18 113/68 98 Room Air all noted and reviewed including below
[2023-10-08] MEDS: SACCHAROMYCES BOULARDII 250 MG CAP PO SCH (08:43)
[2023-10-08] MEDS: oxyBUTYnin chloride 5 MG TAB PO SCH (08:43)
[2023-10-08] MEDS: MAGNESIUM OXIDE 400 MG TAB PO SCH (08:43)
[2023-10-08] MEDS: PANTOprazole 40 MG TAB PO SCH (08:43)
[2023-10-08] MEDS: PARoxetine HCL 20 MG TAB PO SCH (08:43)
[2023-10-08] MEDS: MIRABEGRON ER 25 MG TAB PO SCH (08:44)
[2023-10-08] MEDS: POLYETHYLENE (MIRALAX) 17 GM PACK PO SCH (08:46)
[2023-10-08] MEDS: FLUTICASONE PROPIONATE NA SPR 16 GM BTL SCH (08:46)
[2023-10-08] MEDS: AZELASTINE HCL 0.1% NASAL 200 SPRAYS/27,400 MCG BTL SCH (08:46)
[2023-10-08] MEDS: levoFLOXacin 750 MG TAB PO SCH (10:08)
--- NOTE | 2023-10-08 11:37 | Discharge Summary ---
Discharge Summary Date of Service October 08, 2023 Notes For Next Care Provider Patient diagnosed with emphysematous gastritis. This was diagnosed via EGD. His symptoms improved with antibiotic therapy. He completed a course of antibiotics with Levaquin and Flagyl on 10/08/2023. He will need follow-up with gastroenterology as outpatient. He will also need follow-up with his urologist for nephrostomy tube care. Medication Changes From Visit Oxybutynin 5 mg twice daily. MiraLAX 17 g 3 times a day, or as needed. You may need to adjust this based on your stool output. Continue all other prescribed indications. You may utilize Tylenol as needed [id number] for pain or discomfort. DO NOT USE ANTI-INFLAMMATORIES - ex: Motrin, advil, aleve, ibuprofen, naproxen DO NOT USE STEROIDS Admission HPI Per Admitting Provider Gastric ischemia, pneumatosis CV: RRR RespCTA Abd: soft A/P: EGD Admission Exam Per Admitting Provider GENERAL: Comfortable, chronically ill, no respiratory distress SKIN: Pallor, warm HEENT: Pale palpebral conjunctivae, no ptosis, dry buccal mucosa NECK : Supple, no tenderness CHEST : CTA, no tenderness HEART : RRR, no obvious murmurs ABDOMEN: Some distention, suprapubic catheter and left-sided ostomy in place EXTREMITIES : Minimal LE swelling, no LE tenderness NEUROLOGIC : Coherent, no facial asymmetry, MMTS BUE 4/5, BLE 0 Principal Dx & Hospital Course #1 = Principal Diagnosis (1) Complicated UTI (urinary tract infection): ABDOMINAL PAIN, EMPHYSEMATOUS GASTRITIS History of GERD GI consulted Status post EGD: Impression Emphysematous gastritis. Tolerating Diet PPI BID Broad spectrum abx to include strep viridans and anaerobic coverage. Avoid NSAIDS/Steroids Completed a 2-week course of antibiotics with Levaquin and Flagyl, completed on 10/08/2023 General surgery consulted: No indication for surgery at this time Repeat imaging revealed improved findings related to emphysematous gastritis He is tolerating diet on day of discharge and still was moving via ostomy. He will need to follow-up with gastroenterology as outpatient. POSSIBLE UTI - ruled out Suprapubic catheter and left percutaneous nephrostomy related UTI recurrent UTIs secondary to neurogenic bladder secondary to spina bifida status post suprapubic catheter placement/hx staghorn calculi as per records/left hydronephrosis status post PCNL, Failed outpatient treatment Urine culture: More than 3 organisms, recommend recollection Repeat urine culture: as above Blood cultures: Negative so far UA/ cultx from nephrostomy tube, cultx negative seen and evaluated by urology - no current acute UTI, pt has chronic colonization at this time He will need follow-up with his primary urologist as outpatient HYPOKALEMIA secondary to transient diarrhea illness Replaced Potassium 4.3 history of colostomy No issues chronic anemia, hemoglobin at baseline chronic decubitus wound ,stage IV pressure ulcer, POA - pt follows with wound care as outpt - Wound care consult placed anxiety/mood disorder, at baseline past tobacco abuse History of VRE DISPO: He is being discharged to home with home physical therapy services. He lives alone and his brother will check on him. He is having a wheelchair service, to his house on October 10 to fix a brake on his wheel chair. On day of discharge she is hemodynamically stable, tolerating diet, bowels are functioning, he has completed antibiotics and is medically stable to discharge home. Discharge Exam Gen: WD/WN, NAD, flat affected, A&O x3 HEENT: Normocephalic, atraumatic, conjunctivae moist, sclerae anicteric, mucous membranes moist. Lung: Clear to Auscultation bilaterally, no wheezes/rales/rhonchi Heart: Regular rate, regular rhythm, no murmurs, rubs, or gallops Abdomen: Soft, NT, ND +BS x 4 + colostomy, + suprapubic cath, no surrounding erythema Extremities: b/l lymphedema, paraplegia Skin: Warm, no rash, negative turgor. Updated Medication List Medication Instructions Recorded Confirmed Type azelastine 137 mcg (0.1 %) nasal 2 spray intranasal AMHS 06/25/23 09/21/23 History spray aerosol magnesium oxide 400 mg PO QAM 06/25/23 09/21/23 History paroxetine HCl 10 mg tablet 20 mg PO DAILY 06/25/23 09/21/23 History fluticasone propionate 50 2 spray intranasal QAM 09/21/23 09/21/23 History mcg/actuation nasal spray,suspension mirabegron 25 mg tablet,extended 25 mg PO DAILY 30 days #30 tabs 10/08/23 Rx release 24 hr (Myrbetriq) oxybutynin chloride 5 mg tablet 5 mg PO BID #60 tabs 10/08/23 Rx pantoprazole 40 mg tablet,delayed 40 mg PO BID #60 tabs 10/08/23 Rx release polyethylene glycol 3350 17 gram 17 g PO TID #30 ea 10/08/23 Rx oral powder packet (Miralax) Hospital Stay Data Consultations 09/21/23 02:26 ED Decision to Admit Stat 09/22/23 06:25 Consult Gastroenterology Routine 09/22/23 18:38 Consult Infectious Diseases Routine 09/23/23 11:03 Consult General Surgery Routine 09/29/23 08:00 Consult Urology Routine Procedures Performed Operation Date: 09/23/23 07:00 Actual Procedures p Esophagogastroduodenoscopy - Urbano Cobb MD Diagnostic Imagining Performed Abdomen/Pelvis CT 09/22/23 00:58 Exam(s): CT ABDOMEN + PELVIS With Contrast IV Amt: 87 cc's optiray 320 EXAM: CT Abdomen and Pelvis With Intravenous Contrast CLINICAL HISTORY: Reason for exam: abd pain n v. TECHNIQUE: Axial computed tomography images of the abdomen and pelvis with intravenous contrast. CTDI is 19.87 mGy and DLP is 1006.63 mGy-cm. Automated exposure control was utilized for the study. A dose lowering technique was utilized adhering to the principles of ALARA. CONTRAST: Patient received 87 cc's optiray 320 of IV contrast COMPARISON: No relevant prior studies available. FINDINGS: Lung bases: Unremarkable. No mass. No consolidation. Pleural space: Small left pleural effusion. ABDOMEN: Liver: Unremarkable. No mass. Gallbladder and bile ducts: Unremarkable. No calcified stones. No ductal dilation. Pancreas: Unremarkable. No mass. No ductal dilation. Spleen: Unremarkable. No splenomegaly. Adrenals: Unremarkable. No mass. Kidneys and ureters: Postoperative changes left sided percutaneous nephrostomy tube. Left-sided ureteral calculi remain within the left renal pelvis. Multiple left-sided distal left ureteral calculi are stable in appearance when compared to prior exam. Simple right lower pole renal cyst. No follow-up of this simple cyst is necessary. Simple right upper pole renal cyst. No follow-up of this simple cyst is necessary. No hydronephrosis. Stomach and bowel: The stomach is distended and there is air within the gastric wall concerning for pneumatosis. Subtle associated inflammatory changes. No mucosal thickening. PELVIS: Appendix: No findings to suggest acute appendicitis. Bladder: Urinary bladder is nondistended and contains a suprapubic catheter. Reproductive: Unremarkable as visualized. ABDOMEN and PELVIS: Intraperitoneal space: Unremarkable. No free air. No significant fluid collection. Bones/joints: 1.7 cm right adrenal gland nodule unchanged from prior exam likely representing a cyst. Remote healed right hip fracture. Advanced degenerative changes of the lumbar spine and left hip unchanged from prior study. No dislocation. Soft tissues: Unremarkable. Vasculature: Unremarkable. No abdominal aortic aneurysm. Lymph nodes: Unremarkable. No enlarged lymph nodes. IMPRESSION: 1. Circumferential wall thickening in the gastric fundus with areas of mural air consistent with pneumatosis within same. There is a small amount of associated inflammatory change. Direct visual inspection is recommended for further evaluation. 2. Left-sided percutaneous nephrostomy tube with resolution of left- sided hydronephrosis. No interval change and the appearance to the multiple left renal calculi. 3. Other chronic changes described above Electronically signed by: James Milian MD 09/22/23 06:15 AM Abdomen/Pelvis CTA 09/24/23 17:01 CT angio abdomen pelvis w con CLINICAL HISTORY: 68 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 Acute generalized abdominal pain COMPARISON STUDY: CT 09/22/2023, MRI pelvis 01/24/2022, CT abdomen and pelvis 03/30/2021 TECHNIQUE: Following the IV administration of 117 cc of Optiray, CT angiogram of the abdomen and pelvis was performed from the lung bases the proximal femora. Images are reviewed in the axial, sagittal, and coronal planes. 3-D MIPS images are created and assessed. All measurements were obtained according to NASCET criteria. IV contrast was administered without complication. A dose lowering technique was utilized adhering to the principles of ALARA. CT DOSE: 867.51 mGy.cm FINDINGS: CTA: The heart is mildly enlarged. Trace pericardial effusion. Mildly decreased AP dimension of the upper abdominal aorta at the level of the diaphragmatic hiatus. No abdominal aortic aneurysm or dissection. Mild atherosclerosis. There is patency of the celiac trunk, superior and inferior mesenteric and bilateral renal arteries. No acute hemorrhage or active extravasation identified. CT: Trace left pleural effusion. Chronic left hemidiaphragmatic elevation with mild dependent subsegmental bibasilar atelectasis. Unremarkable spleen, moderately atrophic pancreas and left adrenal gland. Right adrenal gland myolipoma again noted. Unchanged appearance of the liver with subcentimeter hypodensities of the left hepatic lobe, likely benign. Unremarkable gallbladder. Cortical thinning of the kidneys with bilateral cysts up to 3.4 cm on the right. A left-sided percutaneous nephrostomy catheter is noted. Mild dilation of the left renal pelvis with urothelial thickening again noted. Dependent 7 mm calculus within the left ureteropelvic junction. There are at least 6 large calculi within the left ureter measuring up to approximately 10 mm. No significant hydronephrosis. Decompressed bladder with Little catheter in place. Prostamegaly with coarse prostatic calcifications. No lymphadenopathy. There is improved appearance of the stomach with decreased air within the wall of the gastric fundus-or cardiac distribution. Gastric distention no longer present. There is persistent gastric wall thickening with mild perigastric inflammation, greatest adjacent to the fundus. No hiatal hernia or-or volvulus. Contrast noted within the rectum. The descending left-sided colostomy with parastomal fat filled hernia again noted. Spinal dysraphism with diffuse muscular atrophy again noted. Chronic displaced negative right proximal femoral fracture. Demineralized appearance of the bones. No acute fracture identified. Sacral decubitus ulcer is noted with cellulitis. No abscess. Chronic findings of a distal tuberosity may be related to chronic osteomyelitis. No acute osteomyelitis identified. Ventral abdominal wall herniorrhaphy. IMPRESSION: 1. Improving findings related to the previously described emphysematous gastritis. There is decreased gastric distention, improving gastric wall thickening with adjacent perigastric inflammatory stranding. 2. No hiatal hernia or gastric volvulus 3. Sacral decubitus ulcer without abscess. 4. Left-sided percutaneous nephrostomy catheter in place with numerous left ureteral calculi redemonstrated. There is dilation of the left renal pelvis without significant hydronephrosis. 5. Trace left pleural effusion with chronic left hemidiaphragm elevation. 6. Unremarkable CTA portion of the study. 7. Additional findings as above. ACT 112: Negative or not required by law. The above report was generated using voice recognition software. It may contain grammatical, syntax or spelling errors. Electronically signed by: Beau Dennis M.D. 09/24/2023 6:59 PM Abdomen/Pelvis CT 09/26/23 20:34 Exam(s): CT ABDOMEN + PELVIS Without Contrast EXAM: CT Abdomen and Pelvis Without Intravenous Contrast CLINICAL HISTORY: Reason for exam: question emphysematous gastritis. TECHNIQUE: Axial computed tomography images of the abdomen and pelvis without intravenous contrast. CTDI is 22.99 mGy and DLP is 1130.51 mGy-cm. Automated exposure control was utilized for the study. A dose lowering technique was utilized adhering to the principles of ALARA. COMPARISON: No relevant prior studies available. FINDINGS: Lung bases: Atelectasis at the LEFT lung base. Percutaneous colostomy tube. ABDOMEN: Liver: Unremarkable. Gallbladder and bile ducts: Unremarkable. No calcified stones. No ductal dilation. Pancreas: Unremarkable. No ductal dilation. Spleen: Unremarkable. No splenomegaly. Adrenals: Unremarkable. No mass. Kidneys and ureters: RIGHT lower pole renal cyst measures 3.2 cm. No obstructing stones. No hydronephrosis. Stomach and bowel: LEFT lower quadrant colostomy. No small bowel obstruction. No free intraperitoneal air. No mucosal thickening. PELVIS: Appendix: No findings to suggest acute appendicitis. Bladder: Suprapubic catheter terminates in the urinary bladder. No stones. Reproductive: Unremarkable as visualized. ABDOMEN and PELVIS: Intraperitoneal space: Unremarkable. No free air. No significant fluid collection. Bones/joints: Sacral decubitus ulceration, although physical exam. Chronically fractured RIGHT femoral neck. No dislocation. Soft tissues: Anterior hernia mesh repair. Vasculature: Unremarkable. No abdominal aortic aneurysm. Lymph nodes: Unremarkable. No enlarged lymph nodes. IMPRESSION: 1. Anterior hernia mesh repair. 2. Suprapubic catheter terminates in the urinary bladder. 3. LEFT lower quadrant colostomy. No small bowel obstruction. No free intraperitoneal air. 4. Atelectasis at the LEFT lung base. Percutaneous colostomy tube. 5. Chronically fractured RIGHT femoral neck. Electronically signed by: Ayden Doshi MD 09/26/23 21:26 PM Pending Results Patient Have Any Pending Studies at Discharge: No Discharge Instructions Given to Patient (Per Discharging Provider) MEDICATION CHANGES: Oxybutynin 5 mg twice daily. MiraLAX 17 g 3 times a day, or as needed. You may need to adjust this based on your stool output. Continue all other prescribed indications. You may utilize Tylenol as needed [id number] for pain or discomfort. DO NOT USE ANTI-INFLAMMATORIES - ex: Motrin, advil, aleve, ibuprofen, naproxen DO NOT USE STEROIDS SUMMARY OF TEST RESULTS: You were admitted to hospital secondary to abdominal pain, nausea, vomiting, diarrhea and difficulty with suprapubic catheter. CT abdomen pelvis was consistent with gastritis. You underwent EGD which revealed a condition known as emphysematous gastritis. You were treated with course of antibiotics. Your pantoprazole was increased to 40 mg twice daily. Initially there was concern about possible urinary tract infection. You were seen and evaluated by urology who did not feel this to be the case. You were covered with antibiotics empirically. You will need to follow-up with your outpatient urologist for nephrostomy tube exchange. Your potassium was low and this was replaced. PENDING TEST RESULTS: None RECOMMENDATIONS FOR FOLLOW-UP: Please follow-up with your primary care provider as scheduled. Please follow-up with your urologist for appropriate care for your nephrostomy and catheter. Continue routine wound care follow-up. Please take all medications as prescribed. Continue routine care of your colostomy, nephrostomy tube OTHER INSTRUCTIONS: Seek medical attention if you have: * temperature above 101 * chest pain or trouble breathing * abdominal pain, nausea, vomiting * diarrhea, dark stools or bloody stools * any unanswered questions or concerns Call 911 if symptoms are severe. Please take good care of yourself. It has been a pleasure taking care of you. Please take care of yourself. If you have any questions regarding your recent hospitalization please contact [facility] and request [facility] @ [phone]. Joanne See PA-C Total Time Total Time Spent Total Time Spent (In Minutes): 45 minutes Supervising Physician Co-Signing Physician Notes delayed entry date of service noted above Attending Addendum: care coordinated with CELE Joanne See please refer to her notes for full details, I agree with her notes patient seen and examined, records reviewed by myself as well diagnoses and plan of care as per CELE Munoz MD [facility] Attestation I certify that this patient is under my care and that I, or a physicians general office assistant working with me, had a face to-face encounter that meets the [id number] encounter requirements with this patient. The encounter with the patient was in whole, or in part, for the following medical condition, which is the primary reason for home health care (list medical condition): I certify that, based on my findings, the following services are medically necessary home health services: My clinical findings support the need for the above services because: Further, I certify that my clinical findings support that this patient is homebound (i.e. absences from home require considerable and taxing effort and are for medical reasons or hinduism services or infrequently or of short duration when for other reasons) because: Certification for Home Health Services: Based on the above findings, I certify that this patient is confined to the home and needs intermittent retirement care, physical therapy and/or speech therapy or continues to need occupational therapy. The patient is under my care, and I have initiated the establishment of the plan of care. This patient will be followed by a physician who will periodically review the plan of care.
== END 2023-10-08 15:03 | disposition home health service (06) | DRG 698 ==
LOC: ED 00:15 → SUATTDRO 06:30 → 3E 06:30

== ENCOUNTER 2024-03-10 21:42 | Inpatient (IN) ==
--- NOTE | 2024-03-10 22:39 | Emergency Department Note ---
Impression & Plan Weakness, Spina bifida, Sacral decubitus ulcer, Leukocytosis, Hypocalcemia, Septic joint, Cellulitis, UTI (urinary tract infection), Hypokalemia, Hypomagnesemia ED Provider Note NAME: ANA BEARD AGE: 68 SEX: M : 1955 ARRIVES VIA: Ambulance INFORMANT: [Patient][nursing] ED PROVIDER(S): [Terrance Carter MD] CHIEF COMPLAINT: Hip pain HISTORY OF PRESENT ILLNESS: The patient states that he fell from his wheelchair sometime late last year and has had some right hip pain ever since. He is not sure if the hip was fractured or just contused. He has a history of spina bifida. He is wheelchair-bound. He has a chronic sacral ulcer that they have not been able to repair. Patient has a left nephrostomy tube and a suprapubic Little catheter. The patient states that he has had some chills and has felt a fever for a few days. He has felt weak. He started an antibiotic that he had at home for what he thought may be a urinary tract infection--he has had multiple previous UTIs. He does not know the name of the antibiotic. The patient states that he is not short of breath, there has been no cough or congestion. He has not had a rash. No abdominal pain, no vomiting. PMHx/PSHx/Social Hx: See Below PHYSICAL EXAM: GENERAL: Patient is in no acute distress. HEENT: No acute trauma, normocephalic atraumatic, mucous membranes moist, no nasal congestion. NECK: No stridor, no adenopathy, no meningismus, trachea is midline. LUNGS: Clear to auscultation bilaterally, no wheeze, no rhonchi, breath sounds equal. HEART: Mildly tachycardic, regular rhythm, no obvious murmur. ABDOMEN: Soft, nontender, no peritonitis. Suprapubic Little catheter noted. EXTREMITIES: No cyanosis. No rash to suggest cellulitis. NEUROLOGIC: Oriented x 3. Awake and alert. SKIN: No jaundice, no diaphoresis. Pale. Back: There is a left nephrostomy tube in place. Patient has a very large deep sacral ulcer with obvious sacral bone exposure. There is a foul odor with surrounding erythema. There is significant purulent drainage on his dressing. DIFFERENTIAL DIAGNOSIS: Bacteremia or sepsis, cellulitis, osteomyelitis, UTI, electrolyte imbalance, dehydration, renal failure, among others. EMERGENCY DEPARTMENT PROCEDURES: MEDICAL DECISION MAKING: There is a moderate leukocytosis, this would be consistent with infection. The patient is anemic however, his value is consistent with testing from last month. There was a normal platelet count. INR slightly elevated at 1.2. Sodium somewhat low at 132. Potassium low at 2.9. Magnesium was low at 1.4. Calcium was low at 7.7. No concerning liver enzyme elevation. ECG showed a sinus tachycardia, no obvious acute ischemia. Cardiac enzyme testing x 1 was not consistent with acute cardiac injury. Procalcitonin level was elevated consistent with bacterial infection. Lactic acid level was not elevated making severe sepsis less likely. Urinalysis was consistent with infection. Chest x- ray did not show pneumonia or CHF. Abdominal and pelvis CT showed a large sacral ulcer with osteomyelitis. There was what appeared to be a old fracture to the right hip with a septic joint. The patient was felt at risk for sepsis. He was aggressively managed. Patient received IV daptomycin and IV cefepime as antibiotic coverage. He was given IV magnesium, IV calcium and IV potassium. He received IV morphine for pain, IV Zofran for nausea. He received 2 L of IV saline. The 2 L of saline should meet criteria for 30 cc/kg of saline as sepsis protocol based on his actual body weight. The patient is clearly in need of admission. He has multiple issues and at least 3 areas of infection--the sacral ulcer, his right hip and his urine. Patient is aware of his findings, he understands the need for a hospital stay. Currently, his blood pressure is adequate and he is not requiring pressors. I did speak with case management, the on-call hospitalist has been consulted. Patient will likely need a general surgical consult for the sacral ulcer as well as orthopedic consult for the presumed septic right hip. Prior/Outside records/notes reviewed: Today's EMS notes describing his presentation and transport to this hospital. ECG per my interpretation: Indication was possible sepsis. The ECG shows a sinus tachycardia with a rate of 110. There is diffuse nonspecific ST change. There is no acute ST elevation, no PVCs. The QTc was 438. Continuous Cardiac Monitoring per my interpretation: An order was placed for continuous cardiac monitoring. The monitor shows a rate of 103 with sinus tachycardia. Imaging/x-ray results per my interpretation: Chest x-ray does not show mediastinal widening, pneumonia or pneumothorax. Chronic Medical/Social conditions affecting care: Spina bifida, advanced age. Care/Management discussed with: Case management, the on-call hospitalist. Level of care consideration(s): After review of the information above and other included data: --I believe the patient requires escalation of care to admission Critical Care Note: I have personally spent 56 minutes of critical care time in the direct management of this patient. This includes bedside care, interpretation of diagnostic studies, and testing, discussion with consultants, patient, and family members, and other required patient management activities. This 56 minutes is in excess of all separately billable procedures. DISPOSITION: Admission Past Med/Surg History Problem List Hypomagnesemia (Acute) Hypokalemia (Acute) UTI (urinary tract infection) (Acute) Cellulitis (Acute) Septic joint (Acute) Hypocalcemia (Acute) Leukocytosis (Acute) Sacral decubitus ulcer (Acute) Spina bifida (Acute) Weakness (Acute) Septic hip Septic shock Sacral decubitus ulcer (Acute) Complication, blocked suprapubic catheter (Acute) Pressure ulcer of ischium, stage 4 (Acute) Chronic suprapubic catheter (Acute) Ureteral obstruction, left (Acute) Spina bifida (Acute) Catheter-associated urinary tract infection (Acute) Sepsis Ulcer, scrotum Wound of right buttock Stage IV pressure ulcer of buttock (Chronic) Paraplegia (Chronic) Colostomy in place (Chronic) Neurogenic bladder (Chronic) SANJEEV (iron deficiency anemia) (Chronic) GERD (gastroesophageal reflux disease) (Chronic) Spina bifida (Chronic) Amputated toe of right foot (Chronic) H/O exploratory laparotomy (Chronic) Status post skin flap graft (Chronic) History of incisional hernia repair (Chronic) Colostomy hernia Frequent UTI Hydronephrosis due to obstruction of ureter (Acute) Ureterolithiasis (Acute) Acute left flank pain (Acute) Encounter for pre-operative examination Encounter for pre-operative examination Stage II pressure ulcer of left hip (Acute) Perirectal fistula (Acute) Perineal abscess (Acute) Sepsis (Acute) Sacral decubitus ulcer (Acute) Traumatic ecchymosis of right lower leg (Acute) Pressure ulcer of left leg, unstageable (Acute) Pressure ulcer of right ischium (Acute) Traumatic wound (Acute) Catheter-associated urinary tract infection (Acute) Dysphagia Paraplegia from the waist down-confined to wheelchair Medical History Emphysematous gastritis Ischemia, bowel Complicated UTI (urinary tract infection) Malfunction of indwelling urinary catheter Hypokalemia Urolithiasis Encounter for pre-operative examination Abnormal CT of the abdomen Slow to wake up after anesthesia History of frequent urinary tract infections Environmental allergies Little catheter in place suprapubic catheter Chronic allergic rhinitis Hx of Clostridium difficile infection dx years ago Hx MRSA infection stool, dx years ago Hx of migraines History of palpitations hx holter monitoring>no findings; f/u PCP IBS (irritable bowel syndrome) Anxiety and depression HTN (hypertension) Seasonal allergies Schatzki's ring Wheelchair bound Decubitus ulcer CHRONIC; FOLLOWS W/ WOUND CLINIC- right groin area currently Chronic back pain Osteoarthritis Kidney stones Neurogenic bladder Colostomy in place Chronic gum disease Tinnitus RT EAR Hearing deficit RT EAR History of febrile seizure X 1; CHILDHOOD Deep vein thrombosis > 10 YEARS AGO - TREATED W/ BLOOD THINNERS - R/T IMMOBILITY Spina bifida SPINAL CLOSURE Surgical History History of suprapubic catheter History of esophagogastroduodenoscopy (EGD) History of sinus surgery History of surgery RT HIP WOUND DEBRIDEMENT W/ SKIN GRAFTING History of exploratory laparotomy History of incisional hernia repair X5 History of anesthesia reaction SLOW TO WAKE 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 History of cystoscopy W/ STONE EXTRACTION History of colonoscopy History of lithotripsy Status post myringotomy with insertion of tube History of tooth extraction History of esophageal dilatation Family History Other No family history of adverse response to anesthesia Social History Smoking Status: Former smoker Second Hand Exposure: No; Do You Dip or Chew Tobacco: No; Hx Alcohol Use: No Hx Substance Use: No Preferred Language: [place] Communication Ability: Effective Visual Impairment: Limited Hearing Ability: Hard of Hearing Asset Protection Specialist Required: No Beliefs That Will Affect Care: Cultural marital status: Single Current Living Situation: Alone Current Living 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 How many Children do You have: 0 Other Information That Helps Us Care for You: No other: Brother assists with care Feels Safe at Home: Yes Safety Concerns: Feels Safe At This Time Diet: regular during the past year weight has: remained stable Assistive Devices: Glasses and Wheelchair Allergies Allergies Allergy/AdvReac Type Severity Reaction Status Date / Time iodine Allergy Intermediate A Verified 03/11/24 01:22 TEEN-SKIN CONTACT BURNED THE SKIN-FELT LIKE ON FIRE adhesive Allergy Mild ADHESIVE Verified 03/11/24 01:22 TAPE RIPS SKIN APART clindamycin Allergy Mild RASH Verified 03/11/24 01:22 Iodinated Contrast Media Allergy Mild NAUSEA Verified 03/11/24 01:22 Penicillins Allergy Mild HIVES-ITCHING,HAS Verified 03/11/24 01:22 TOLERATED ANCEF IN PAST pineapple Allergy Mild "TONGUE Verified 03/11/24 01:22 WALKER AND CRACKS" vancomycin Allergy Mild hives Verified 03/11/24 01:22 aspirin AdvReac Mild GI Verified 03/11/24 01:22 SENSITIVITY Home Meds Home Medications Medication Instructions Recorded Confirmed magnesium oxide 400 mg PO QAM 06/25/23 03/11/24 oxybutynin chloride 5 mg tablet 5 mg PO AMHS 03/11/24 03/11/24 pantoprazole 40 mg tablet,delayed 40 mg PO AMHS 03/11/24 03/11/24 release paroxetine HCl 20 mg tablet 20 mg PO QAM 03/11/24 03/11/24 polyethylene glycol 3350 17 gram 17 g PO UD PRN Constipation 03/11/24 03/11/24 oral powder packet (Miralax) Results & Data (ED) Vital Signs Vital Signs - 24 hr 03/10/24 21:48 03/10/24 21:56 03/10/24 22:09 Temperature 37.1 C Temperature Source Oral Pulse Rate 111 H 119 H Pulse Rate [Apical] 113 H Pulse Rate from SpO2 Sensor Respiratory Rate 15 19 Respiratory Effort / Characteristics Non-Labored Respiratory Depth Normal Respiratory Pattern Regular Blood Pressure 116/82 Blood Pressure [Right Arm] 101/61 Blood Pressure Mean 93 Blood Pressure Mean [Right Arm] 74 Pulse Oximetry 99 98 Oxygen Delivery Method Room Air Room Air Sepsis Recent Fever Within 48 Hours No Sepsis New/Unexplained Change in Mental Status N/A Sepsis Action Taken by Nursing No Action Required 03/10/24 22:10 03/10/24 22:10 03/10/24 22:25 Temperature Temperature Source Pulse Rate Pulse Rate [Apical] 109 H 117 H Pulse Rate from SpO2 Sensor Respiratory Rate 16 15 Respiratory Effort / Characteristics Respiratory Depth Respiratory Pattern Blood Pressure Blood Pressure [Right Arm] Blood Pressure Mean Blood Pressure Mean [Right Arm] Pulse Oximetry 98 98 99 Oxygen Delivery Method Room Air Room Air Room Air Sepsis Recent Fever Within 48 Hours Sepsis New/Unexplained Change in Mental Status Sepsis Action Taken by Nursing 03/10/24 22:40 03/10/24 22:55 03/10/24 23:10 Temperature Temperature Source Pulse Rate Pulse Rate [Apical] 116 H 112 H 113 H Pulse Rate from SpO2 Sensor Respiratory Rate 13 14 16 Respiratory Effort / Characteristics Respiratory Depth Respiratory Pattern Blood Pressure Blood Pressure [Right Arm] 104/57 L Blood Pressure Mean Blood Pressure Mean [Right Arm] 72 Pulse Oximetry 99 98 100 Oxygen Delivery Method Room Air Room Air Sepsis Recent Fever Within 48 Hours Sepsis New/Unexplained Change in Mental Status Sepsis Action Taken by Nursing 03/10/24 23:25 03/10/24 23:40 03/10/24 23:55 Temperature Temperature Source Pulse Rate Pulse Rate [Apical] 111 H 113 H 106 H Pulse Rate from SpO2 Sensor Respiratory Rate 13 14 16 Respiratory Effort / Characteristics Respiratory Depth Respiratory Pattern Blood Pressure Blood Pressure [Right Arm] 107/58 L 106/61 94/52 L Blood Pressure Mean Blood Pressure Mean [Right Arm] 74 76 66 Pulse Oximetry 99 99 98 Oxygen Delivery Method Room Air Room Air Room Air Sepsis Recent Fever Within 48 Hours Sepsis New/Unexplained Change in Mental Status Sepsis Action Taken by Nursing 03/11/24 01:00 03/11/24 02:00 03/11/24 02:03 Temperature Temperature Source Pulse Rate 97 H Pulse Rate [Apical] 95 H 94 H Pulse Rate from SpO2 Sensor Respiratory Rate 17 21 Respiratory Effort / Characteristics Respiratory Depth Respiratory Pattern Blood Pressure Blood Pressure [Right Arm] 91/45 L 77/45 L Blood Pressure Mean Blood Pressure Mean [Right Arm] 60 55 Pulse Oximetry 94 95 Oxygen Delivery Method Room Air Room Air Sepsis Recent Fever Within 48 Hours Sepsis New/Unexplained Change in Mental Status Sepsis Action Taken by Nursing 03/11/24 02:30 03/11/24 02:45 03/11/24 03:00 Temperature Temperature Source Pulse Rate 93 H Pulse Rate [Apical] 94 H 92 H Pulse Rate from SpO2 Sensor 92 H Respiratory Rate 19 18 22 Respiratory Effort / Characteristics Respiratory Depth Respiratory Pattern Blood Pressure 84/49 L Blood Pressure [Right Arm] 76/44 L 74/43 L Blood Pressure Mean 60 Blood Pressure Mean [Right Arm] 54 53 Pulse Oximetry 96 96 95 Oxygen Delivery Method Room Air Room Air Sepsis Recent Fever Within 48 Hours Sepsis New/Unexplained Change in Mental Status Sepsis Action Taken by Nursing 03/11/24 03:15 03/11/24 03:31 03/11/24 04:00 Temperature Temperature Source Pulse Rate 92 H Pulse Rate [Apical] 90 86 Pulse Rate from SpO2 Sensor 91 H Respiratory Rate 14 16 14 Respiratory Effort / Characteristics Respiratory Depth Respiratory Pattern Blood Pressure 77/42 L Blood Pressure [Right Arm] 72/43 L 85/51 L Blood Pressure Mean 53 Blood Pressure Mean [Right Arm] 52 62 Pulse Oximetry 94 94 95 Oxygen Delivery Method Room Air Room Air Room Air Sepsis Recent Fever Within 48 Hours Sepsis New/Unexplained Change in Mental Status Sepsis Action Taken by Nursing 03/11/24 04:30 03/11/24 05:00 Temperature Temperature Source Pulse Rate Pulse Rate [Apical] 82 79 Pulse Rate from SpO2 Sensor Respiratory Rate 13 15 Respiratory Effort / Characteristics Respiratory Depth Respiratory Pattern Blood Pressure Blood Pressure [Right Arm] 99/63 L 88/53 L Blood Pressure Mean Blood Pressure Mean [Right Arm] 75 64 Pulse Oximetry 98 97 Oxygen Delivery Method Room Air Room Air Sepsis Recent Fever Within 48 Hours Sepsis New/Unexplained Change in Mental Status Sepsis Action Taken by Skilled Nursing Medications Current Medication List: was personally reviewed by me Laboratory Data Attestation: I reviewed the patient's lab results. 03/11/24 07:25 03/11/24 07:25 Lab Results 03/10/24 03/10/24 Range/Units 23:24 23:44 WBC 16.47 H (4.8-10.8) K/ul RBC 4.16 L (4.70-6.10) M/uL Hgb 9.0 L (14.0-18.0) g/dl Hct 29.5 L (42.0-52.0) % MCV 70.9 L (80.0-100.0) fL MCH 21.6 L (25.0-34.0) pg MCHC 30.5 L (32.0-36.0) g/dL RDW Std Deviation 44.0 (36.4-46.3) fL RDW Coeff of Sebastian 17.4 H (11.5-14.5) % Plt Count 348 (130-400) K/uL MPV 8.5 L (9.4-12.4) fL Immature Gran % (Auto) 0.7 % Neut % (Auto) 89.1 % Lymph % (Auto) 4.1 % [place] % (Auto) 5.6 % Eos % (Auto) 0.4 % Baso % (Auto) 0.1 % Neut # (Auto) 14.66 H (1.40-6.50) K/uL Lymph # (Auto) 0.68 L (1.20-3.40) K/uL [place] # (Auto) 0.92 H (0.11-0.59) K/uL Eos # (Auto) 0.07 (0.00-0.50) K/uL Baso # (Auto) 0.02 (0.00-0.20) K/uL Immature Gran # (Auto) 0.12 (0.01-0.20) K/uL PT 13.2 H (9.0-12.0) Seconds INR 1.2 H (0.9-1.1) APTT 31 (21-31) Seconds PTT Ratio 1.2 Sodium 132 L (136-145) mmol/L Potassium 2.9 L (3.5-5.1) mmol/L Chloride 95 L (98-107) mmol/L Carbon Dioxide 27 (21-32) mmol/L Anion Gap 10 (3-11) BUN 10 (6-23) mg/dl Creatinine 0.32 L (0.6-1.4) mg/dl Est Cr Clr Drug Dosing 162.8 ml/min Est GFR ( Amer) > 150.0 ml/min Est GFR (Non-Af Amer) 131.9 ml/min BUN/Creatinine Ratio 31.3 H (10-20) Glucose 103 H (70-99(Fasting)) mg/dl Lactate 1.8 (0.4-2.0) mmol/L Calcium 7.7 L (8.6-10.3) mg/dl Magnesium 1.4 L (1.7-2.4) mg/dl Total Bilirubin 0.5 (0.2-1.0) mg/dl Direct Bilirubin 0.2 (0-0.2) mg/dl AST 15 (13-39) U/L ALT 6 L (7-52) U/L Alkaline Phosphatase 57 (34-104) U/L Troponin I High Sens 5.3 (0-20) pg/ml Total Protein 6.2 (6.0-8.3) gm/dl Albumin 2.2 L (3.4-5.0) gm/dl Procalcitonin 1.10 H (0-0.5) ng/ml TSH 8.125 H (0.300-4.500) uIu/ml Free T4 0.96 (0.61-1.60) ng/dl Urine Color Dark Yellow Urine Appearance Turbid A (Clear) Urine pH 6.0 (4.5-7.5) Ur Specific [place] 1.021 (1.000-1.030) Urine Protein 1+ H (Negative) Urine Glucose (UA) Negative (Negative) Urine Ketones 1+ H (Negative) Urine Blood 2+ H (Negative) Urine Nitrite Negative (Negative) Urine Bilirubin Negative (Negative) Urine Urobilinogen Negative (Negative) Ur Leukocyte Esterase 3+ H (Negative) Urine WBC (Auto) >50 H (0-5) /hpf Urine RBC (Auto) 11-20 H (0-2) /hpf U Hyaline Cast (Auto) 6-10 H (0-2) /lpf U Epithel Cells (Auto) 0-2 (0-2) /hpf Urine Bacteria (Auto) 4+ H (None Seen) Granular Casts P (None Prsent) /lpf Urine Mucus Present A (None Prsent) Administered Medications Norepinephrine Bitartrate (Levophed/D5w) 4 mg in 250 mls @ 10.05 mls/hr IV .Q24H [facility]; Protocol Stop: 04/10/24 03:44 Last Titration: 03/11/24 07:19 Dose: 0.05 mcg/kg/min, 10.1 mls/hr Documented By: Titration: 03/11/24 07:15 Dose: 0.03 mcg/kg/min, 6 mls/hr Documented By: GONZALO Co-signed By: GTH Titration: 03/11/24 06:40 Dose: 0.03 mcg/kg/min, 6 mls/hr Documented By: Titration: 03/11/24 06:30 Dose: 0.05 mcg/kg/min, 10.1 mls/hr Documented By: Titration: 03/11/24 04:06 Dose: 0.07 mcg/kg/min, 14.1 mls/hr Documented By: Admin: 03/11/24 03:41 Dose: 0.05 mcg/kg/min, 10.1 mls/hr Documented By: MALINI Co-signed By: VINEET Parenteral Electrolytes (Plasma-Lyte A Ph 7.4) 1,000 mls @ 60 mls/hr IV .[id number] [facility] Stop: 04/10/24 10:14 Last Admin: 03/11/24 11:14 Dose: 60 mls/hr Documented By: GONZALO Miscellaneous (Icu Protocol For Hyperglycemia) 1 each N/A ACHS [facility] Stop: 03/13/24 07:29 Last Admin: 03/11/24 11:34 Dose: Not Given Documented By: Admin: 03/11/24 08:33 Dose: Not Given Documented By: CAM Oxybutynin Chloride (Oxybutynin Chloride 5 Mg Tab) 5 mg PO [facility] Stop: 04/10/24 08:59 Last Admin: 03/11/24 09:59 Dose: Not Given Documented By: GONZALO Pantoprazole Sodium (Pantoprazole 40 Mg Tab) 40 mg PO [facility] Stop: 04/10/24 08:59 Last Admin: 03/11/24 09:59 Dose: Not Given Documented By: CAM Paroxetine HCl (Paroxetine Hcl 20 Mg Tab) 20 mg PO [facility] Stop: 04/10/24 08:59 Last Admin: 03/11/24 09:59 Dose: Not Given Documented By: GONZALO Discontinued Medications Sodium Chloride (Nss) 1,000 mls @ 999 mls/hr IV .Q1H1M [facility] Stop: 03/10/24 23:15 Last Infusion: 03/11/24 01:06 Dose: Infused Documented By: Admin: 03/10/24 23:35 Dose: 999 mls/hr Documented By: MALINI Cefepime HCl (Maxipime) 2,000 mg in 20 mls @ 5 mls/min IV NOW STA; Protocol Stop: 03/10/24 22:12 Last Admin: 03/10/24 23:52 Dose: 5 mls/min Documented By: MALINI Daptomycin 325 mg/ Syringe 6.5 mls @ 3.25 mls/min IV NOW ONE; Protocol Stop: 03/10/24 22:21 Last Admin: 03/10/24 23:39 Dose: 3.25 mls/min Documented By: MALINI Calcium Gluconate () 1,000 mg in 60 mls @ 240 mls/hr IV NOW STA Stop: 03/11/24 00:29 Last Infusion: 03/11/24 00:56 Dose: Infused Documented By: Admin: 03/11/24 00:33 Dose: 240 mls/hr Documented By: MALINI Magnesium Sulfate/Dextrose (Magnesium Sulfate / D5w) 1 gm in 100 mls @ 100 mls/hr IV Q1H [facility] Stop: 03/11/24 02:14 Last Infusion: 03/11/24 02:29 Dose: Infused Documented By: Admin: 03/11/24 01:26 Dose: 100 mls/hr Documented By: Infusion: 03/11/24 01:26 Dose: Infused Documented By: Admin: 03/11/24 00:33 Dose: 100 mls/hr Documented By: MALINI Potassium Chloride (K Veto / Wtr) 10 meq in 100 mls @ 100 mls/hr IV ONE ONE Stop: 03/11/24 01:14 Last Infusion: 03/11/24 01:34 Dose: Infused Documented By: Admin: 03/11/24 00:33 Dose: 100 mls/hr Documented By: MALINI Sodium Chloride (Nss) 1,000 mls @ 999 mls/hr IV .Q1H1M ONE Stop: 03/11/24 01:15 Last Infusion: 03/11/24 01:58 Dose: Infused Documented By: Admin: 03/11/24 00:33 Dose: 999 mls/hr Documented By: MALINI Metronidazole (Flagyl) 500 mg in 100 mls @ 100 mls/hr IV NOW STA; Protocol Stop: 03/11/24 01:55 Last Infusion: 03/11/24 01:58 Dose: Infused Documented By: Admin: 03/11/24 01:06 Dose: 100 mls/hr Documented By: MALINI Potassium Chloride/Sodium Chloride (Normal Saline W/20 Meq Kcl) 20 meq in 1,000 mls @ 500 mls/hr IV .Q2H ONE; Protocol Stop: 03/11/24 03:19 Last Infusion: 03/11/24 04:39 Dose: Infused Documented By: Infusion: 03/11/24 02:50 Dose: 500 mls/hr Documented By: Admin: 03/11/24 02:21 Dose: 250 mls/hr Documented By: MALINI Potassium Chloride (K Veto / Wtr) 10 meq in 100 mls @ 50 mls/hr IV Q1H [facility] Stop: 03/11/24 09:57 Last Infusion: 03/11/24 13:46 Dose: Infused Documented By: Admin: 03/11/24 09:52 Dose: 50 mls/hr Documented By: Infusion: 03/11/24 09:18 Dose: Infused Documented By: Admin: 03/11/24 07:18 Dose: 50 mls/hr Documented By: Infusion: 03/11/24 06:59 Dose: Infused Documented By: Admin: 03/11/24 05:39 Dose: 75 mls/hr Documented By: Infusion: 03/11/24 05:38 Dose: Infused Documented By: Infusion: 03/11/24 04:39 Dose: 75 mls/hr Documented By: Infusion: 03/11/24 03:02 Dose: 0 mls/hr Documented By: Admin: 03/11/24 02:21 Dose: 50 mls/hr Documented By: MALINI Potassium Chloride/Sodium Chloride (Normal Saline W/20 Meq Kcl) 20 meq in 1,000 mls @ 100 mls/hr IV .Q10H ONE; Protocol Stop: 03/11/24 13:59 Last Admin: 03/11/24 04:39 Dose: 100 mls/hr Documented By: MALINI Cefepime HCl 2,000 mg/ Syringe 20 mls @ 5 mls/min IV Q8H [facility]; Protocol Stop: 04/22/24 07:59 Last Admin: 03/11/24 09:46 Dose: 5 mls/min Documented By: GONZALO Metronidazole (Flagyl) 500 mg in 100 mls @ 100 mls/hr IV Q8H [facility]; Protocol Stop: 04/22/24 08:59 Last Infusion: 03/11/24 13:46 Dose: Infused Documented By: Admin: 03/11/24 09:50 Dose: 100 mls/hr Documented By: GONZALO Promethazine HCl (Phenergan) 6.25 mg in 50.25 mls @ 201 mls/hr IV NOW STA Stop: 03/11/24 06:05 Last Infusion: 03/11/24 13:46 Dose: Infused Documented By: Admin: 03/11/24 06:41 Dose: 201 mls/hr Documented By: BREANNA Parenteral Electrolytes (Plasma-Lyte A Ph 7.4) 1,000 mls @ 999 mls/hr IV .Q1H1M ONE Stop: 03/11/24 07:03 Last Infusion: 03/11/24 13:46 Dose: Infused Documented By: Admin: 03/11/24 06:40 Dose: 999 mls/hr Documented By: BREANNA Piperacillin Sod/Tazobactam (Sod 4.5 gm/ Dextrose) 100 mls @ 200 mls/hr IV NOW ONE; Protocol Stop: 03/11/24 10:29 Last Infusion: 03/11/24 13:46 Dose: Infused Documented By: Admin: 03/11/24 11:14 Dose: 200 mls/hr Documented By: GONZALO Ioversol (Optiray 320 100ml) 91 ml IV ONCE ONE Stop: 03/11/24 08:32 Last Admin: 03/11/24 08:32 Dose: 91 ml Documented By: NUBIA Morphine Sulfate (Morphine Sulfate 2 Mg/Ml Carp) 2 mg IV NOW STA Stop: 03/10/24 22:10 Last Admin: 03/10/24 23:37 Dose: 2 mg Documented By: MALINI Norepinephrine Bitartrate (Norepinephrine/D5w 4 Mg/250 Ml) Confirm Administered Dose 4 mg IV .STK-MED ONE Stop: 03/11/24 03:37 Last Admin: 03/11/24 03:43 Dose: Not Given Documented By: MALINI Ondansetron HCl (Ondansetron Inj 2 Mg/Ml 2 Ml Vial) 4 mg IV NOW STA Stop: 03/10/24 22:10 Last Admin: 03/10/24 23:36 Dose: 4 mg Documented By: SKM Ondansetron HCl (Ondansetron Inj 2 Mg/Ml 2 Ml Vial) Confirm Administered Dose 4 mg .ROUTE .STK-MED ONE Stop: 03/11/24 08:42 Last Admin: 03/11/24 08:45 Dose: 4 mg Documented By: GONZALO Potassium Chloride (Potassium Chloride Crtab 20 Meq Tabcr) 40 meq PO NOW STA Stop: 03/11/24 00:53 Last Admin: 03/11/24 01:06 Dose: 40 meq Documented By: SK[facility] Imaging Data Radiologist's Impression: Chest X-Ray 03/10/24 22:10 XR chest 1V portable CLINICAL HISTORY: Sepsis TECHNIQUE: Single frontal radiograph of the chest was obtained. Comparison: Comparison is made to chest radiograph 02/03/2022 FINDINGS: No lines and tubes are seen. The cardiomediastinal silhouette is normal. The lungs are clear. No evidence of pleural effusion or pneumothorax. IMPRESSION: No acute abnormalities and in particular no radiographic evidence of pneumonia. ACT 112: Negative or not required by law. Electronically signed by: Jakob Smith M.D. 03/11/2024 6:55 AM [place], [place] [phone] CT Scan Report Patient: ANA BEARD Admit Date: 03/10/24 MR#: [id number] Address1: [address] [place] [address] ALYSSA Acct ID:[id number] Address2: Date: 1955 [facility] Zip: [place] [address] Age: 68 Location: ED Sex: M Room/Bed: Att Phy: Diagnosis: HIP PAIN FOR FEW MONTHS Padma Phy: Apolinar Herrera DO Service Date: 03/10/24 Fam Phy: Interpreting Phy: Lyndon Lovell MDAdmit Phy: Ordering Phy: Terrance Carter M.D. cc: ~ ADDENDUM ADDENDUM: 03/11/24 01:29 Verify Receipt Verified receipt with AKOSUA Rubio. Given to Dr. Carter on 03/11 01:29 (-04:00) Electronically signed by: Lyndon Lovell MD Electronically signed by: Lyndon Lovell MD 03/11/24 01:11 AM ADDENDUM END Exam(s): CT ABDOMEN + PELVIS Without Contrast EXAM: CT Abdomen and Pelvis Without Intravenous Contrast CLINICAL HISTORY: Reason for exam: large sacral ulcer, poss osteo. TECHNIQUE: Axial computed tomography images of the abdomen and pelvis without intravenous contrast. CTDI is 10.71 mGy and DLP is 538 mGy-cm. Automated exposure control was utilized for the study. A dose lowering technique was utilized adhering to the principles of ALARA. COMPARISON: 09/26/23 FINDINGS: Lung bases: Mild left basilar atelectasis or scarring. ABDOMEN: Liver: Unremarkable. Gallbladder and bile ducts: Unremarkable. No calcified stones. No ductal dilation. Pancreas: Unremarkable. No ductal dilation. Spleen: Unremarkable. No splenomegaly. Adrenals: Unremarkable. No mass. Kidneys and ureters: Left percutaneous nephrostomy catheter appears in good position, unchanged. Mild left renal pelviectasis without significant hydronephrosis. Simple cyst inferior left kidney measuring 3. 7 cm is stable, and no further follow-up is recommended. Stomach and bowel: Left lower quadrant colostomy, unchanged. No bowel dilatation to suggest obstruction. No mucosal thickening. PELVIS: Appendix: No findings to suggest acute appendicitis. Bladder: See below. Reproductive: Unremarkable as visualized. ABDOMEN and PELVIS: Intraperitoneal space: Unremarkable. No free air. No significant fluid collection. Bones/joints: Partial ostial lysis and/or fracture of the proximal right femur, unchanged as well. Surrounding this, there is increased loculated fluid. Detail limited as no IV contrast was administered, however, findings may represent bursitis or septic joint. Suprapubic cystostomy in good position within urinary bladder. 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 Bilateral hip contraction deformities. Soft tissues: Chronic sacral decubitus ulcer with osteolysis of the lower sacrum and coccyx, characteristic for chronic osteomyelitis, unchanged. Old ventral hernia repair with anterior abdominal mesh, unchanged. Vasculature: Unremarkable. No abdominal aortic aneurysm. Lymph nodes: Unremarkable. No enlarged lymph nodes. IMPRESSION: 1. Partial osteolysis and/or fracture of the proximal right femur. Surrounding this, there is increased loculated fluid. Detail limited as no IV contrast was administered, however, findings may represent bursitis or septic joint. 2. Chronic sacral decubitus ulcer with osteolysis of the lower sacrum and coccyx, characteristic for chronic osteomyelitis, unchanged. Communications: Verify Receipt Electronically signed by: Lyndon Lovell MD 03/11/24 01:11 AM Dictated: 03/11/24110 Transcribed: 03/11/24110 Discharge Plan Visit Data Chief Complaint: Hip Pain Stated Complaint: HIP PAIN FOR FEW MONTHS ED Provider: Terrance Carter Discharge Problem: Weakness, Spina bifida, Sacral decubitus ulcer, Leukocytosis, Hypocalcemia, Septic joint, Cellulitis, UTI (urinary tract infection), Hypokalemia, Hypomagnesemia Patient Disposition: Admitted As Inpatient Condition: Serious Discharge Instructions Interventions: ED Discharge Assessment Last Done: 03/11/24 06:02 Discharge Problem: Spina bifida Qualifiers: Spinal region: unspecified Presence of hydrocephalus: unspecified hydrocephalus presence Qualified Code(s): Q05.9 - Spina bifida, unspecified Sacral decubitus ulcer Qualifiers: Pressure injury stage: unspecified pressure injury stage Qualified Code(s): L 89.159 - Pressure ulcer of sacral region, unspecified stage Leukocytosis Qualifiers: Leukocytosis type: unspecified Qualified Code(s): D72.829 - Elevated white blood cell count, unspecified Septic joint Qualifiers: Septic arthritis location: hip Septic arthritis organism: due to unspecified organism Laterality: right Qualified Code(s): M00.9 - Pyogenic arthritis, unspecified Cellulitis Qualifiers: Site of cellulitis: buttock Qualified Code(s): L03.317 - Cellulitis of buttock UTI (urinary tract infection) Qualifiers: Urinary tract infection type: acute cystitis Hematuria presence: without hematuria Qualified Code(s): N30.00 - Acute cystitis without hematuria
[2024-03-10] MEDS: SODIUM CHLORIDE 0.9% 1,000 ML IV SCH (23:35)
[2024-03-10] MEDS: ONDANSETRON INJ 2 MG/ML 2 ML VIAL IV STA (23:36)
[2024-03-10] MEDS: MoRPHine SULFATE 2 MG/ML CARP IV STA (23:37)
[2024-03-10] MEDS: DAPTOmycin 325 MG in SYRINGE 0 ML IV ONE (23:39)
[2024-03-10] MEDS: CEFEPIME 2,000 MG/20 ML VIAL IV STA (23:52)
[2024-03-11] LABS: Basophils # (auto) 0.02 K/uL (0.00-0.20); Basophils % (auto) 0.1 %; Eosinophils # (auto) 0.07 K/uL (0.00-0.50); Eosinophils % (auto) 0.4 %; Hematocrit (blood only) 29.5 % (42.0-52.0); Immature Granulocytes # (auto) 0.12 K/uL (0.01-0.20); Immature Granulocytes % (auto) 0.7 %; Lymphocytes # (auto) 0.68 K/uL (1.20-3.40); Lymphocytes % (auto) 4.1 %; Mean Corpuscular Hemoglobin 21.6 pg (25.0-34.0); Mean Corpuscular Hgb Conc 30.5 g/dL (32.0-36.0); Mean Corpuscular Volume 70.9 fL (80.0-100.0); Mean Platelet Volume 8.5 fL (9.4-12.4); Monocytes # (auto) 0.92 K/uL (0.11-0.59); Monocytes % (auto) 5.6 %; Neutrophils # (auto) 14.66 K/uL (1.40-6.50); Neutrophils % (auto) 89.1 %; Platelet Count 348 K/uL (130-400); RDW Coefficient of Variation 17.4 % (11.5-14.5); Red Blood Count 4.16 M/uL (4.70-6.10); White Blood Count 16.47 K/ul (4.8-10.8)
[2024-03-11 00:07] LABS: Alanine Aminotransferase 6 U/L (7-52); Albumin Level 2.2 gm/dl (3.4-5.0); Alkaline Phosphatase 57 U/L (34-104); Anion Gap 10 (3-11); Aspartate Aminotransferase 15 U/L (13-39); BUN Creatinine Ratio 31.3 (10-20); Bilirubin Direct 0.2 mg/dl (0-0.2); Bilirubin,Total 0.5 mg/dl (0.2-1.0); Blood Urea Nitrogen 10 mg/dl (6-23); Calcium 7.7 mg/dl (8.6-10.3); Carbon Dioxide 27 mmol/L (21-32); Chloride 95 mmol/L (98-107); Creatinine Clr Calc Pharmacy 162.8 ml/min; Est GFR (African American) > 150.0 ml/min; Est GFR (Non-African American) 131.9 ml/min; Glucose 103 mg/dl (70-99(Fasting)); Magnesium 1.4 mg/dl (1.7-2.4); Potassium 2.9 mmol/L (3.5-5.1); Sodium 132 mmol/L (136-145); Total Protein 6.2 gm/dl (6.0-8.3)
[2024-03-11 00:13] LABS: Troponin I High Sensitivity 5.3 pg/ml (0-20)
[2024-03-11 00:20] LABS: INR 1.2 (0.9-1.1); Partial Thromboplastin Ratio 1.2; Partial Thromboplastin Time 31 Seconds (21-31); Prothrombin Time 13.2 Seconds (9.0-12.0)
[2024-03-11] MEDS: MAGNESIUM SULFATE / D5W 1 GM/100 ML BAG IV SCH (00:33)
[2024-03-11] MEDS: SODIUM CHLORIDE 0.9% 1,000 ML IV ONE (00:33)
[2024-03-11] MEDS: CALCIUM GLUCONATE 1,000 MG/60 ML BAG IV STA (00:33)
[2024-03-11] MEDS: POTASSIUM CHLORIDE / WTR 10 MEQ/100 ML PLCT IV ONE (00:33)
[2024-03-11 00:52] LABS: Appearance Urine Turbid (Clear); Bacteria Urine Automated 4+ (None Seen); Bilirubin Urine Negative (Negative); Blood Urine 2+ (Negative); Color Urine Dark Yellow; Epithelial Cell Urine Auto 0-2 /hpf (0-2); Glucose Urine UA Negative (Negative); Ketones Urine 1+ (Negative); Leukocyte Esterase Urine 3+ (Negative); Nitrite Urine Negative (Negative); Protein Urine 1+ (Negative); Specific Gravity Urine 1.021 (1.000-1.030); Urobilinogen Urine Negative (Negative); WBC Urine Automated >50 /hpf (0-5)
[2024-03-11] MEDS: metroNIDAZOLE 500 MG/100 ML BAG IV STA (01:06)
[2024-03-11] MEDS: POTASSIUM CHLORIDE CRTAB 20 MEQ TABCR PO STA (01:06)
[2024-03-11 01:11] LABS: Mucus Urine Present (None Prsent)
[2024-03-11 01:12] LABS: Granular Casts Urine P /lpf (None Prsent)
--- NOTE | 2024-03-11 01:12 | CT Scan Report ---
Exam(s): CT ABDOMEN + PELVIS Without Contrast EXAM: CT Abdomen and Pelvis Without Intravenous Contrast CLINICAL HISTORY: Reason for exam: large sacral ulcer, poss osteo. TECHNIQUE: Axial computed tomography images of the abdomen and pelvis without intravenous contrast. CTDI is 10.71 mGy and DLP is 538 mGy-cm. Automated exposure control was utilized for the study. A dose lowering technique was utilized adhering to the principles of ALARA. COMPARISON: 09/26/23 FINDINGS: Lung bases: Mild left basilar atelectasis or scarring. ABDOMEN: Liver: Unremarkable. Gallbladder and bile ducts: Unremarkable. No calcified stones. No ductal dilation. Pancreas: Unremarkable. No ductal dilation. Spleen: Unremarkable. No splenomegaly. Adrenals: Unremarkable. No mass. Kidneys and ureters: Left percutaneous nephrostomy catheter appears in good position, unchanged. Mild left renal pelviectasis without significant hydronephrosis. Simple cyst inferior left kidney measuring 3. 7 cm is stable, and no further follow-up is recommended. Stomach and bowel: Left lower quadrant colostomy, unchanged. No bowel dilatation to suggest obstruction. No mucosal thickening. PELVIS: Appendix: No findings to suggest acute appendicitis. Bladder: See below. Reproductive: Unremarkable as visualized. ABDOMEN and PELVIS: Intraperitoneal space: Unremarkable. No free air. No significant fluid collection. Bones/joints: Partial ostial lysis and/or fracture of the proximal right femur, unchanged as well. Surrounding this, there is increased loculated fluid. Detail limited as no IV contrast was administered, however, findings may represent bursitis or septic joint. Suprapubic cystostomy in good position within urinary bladder. 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 Bilateral hip contraction deformities. Soft tissues: Chronic sacral decubitus ulcer with osteolysis of the lower sacrum and coccyx, characteristic for chronic osteomyelitis, unchanged. Old ventral hernia repair with anterior abdominal mesh, unchanged. Vasculature: Unremarkable. No abdominal aortic aneurysm. Lymph nodes: Unremarkable. No enlarged lymph nodes. IMPRESSION: 1. Partial osteolysis and/or fracture of the proximal right femur. Surrounding this, there is increased loculated fluid. Detail limited as no IV contrast was administered, however, findings may represent bursitis or septic joint. 2. Chronic sacral decubitus ulcer with osteolysis of the lower sacrum and coccyx, characteristic for chronic osteomyelitis, unchanged. Communications: Verify Receipt Electronically signed by: Lyndon Lovell MD 03/11/24 01:11 AM
[2024-03-11 01:49] LABS: Thyroid Stimulating Hormone 8.125 uIu/ml (0.300-4.500)
[2024-03-11] MEDS: NSS + 20MEQ KCL 20 MEQ/1,000 ML BAG IV ONE ×2 (02:21→04:39)
[2024-03-11] MEDS: POTASSIUM CHLORIDE / WTR 10 MEQ/100 ML PLCT IV SCH (02:21)
[2024-03-11 02:26] LABS: T4 Free Thyroxine 0.96 ng/dl (0.61-1.60)
[2024-03-11] MEDS ORDERED: POTASSIUM CHLORIDE CRTAB 20 MEQ TABCR PO ONE (03:00)
[2024-03-11] MEDS ORDERED: ATROPINE SULFATE 0.1 MG/ML 10ML SYR IV STA (03:31)
[2024-03-11] MEDS ORDERED: STAT IV Infusion **Titration per Protocol STA (03:32)
[2024-03-11] MEDS: NOREPINEPHRINE/D5W 4 MG/250 ML PLCT IV SCH (03:41)
[2024-03-11] MEDS: NOREPINEPHRINE/D5W 4 MG/250 ML IV ONE (03:43)
--- NOTE | 2024-03-11 05:31 | History & Physical Report ---
Date of Service March 11, 2024 Assessment & Plan (1) Septic shock: Plan: Septic shock Multiple sources: Septic right hip rule out osteomyelitis, history traumatic right femoral fracture (2022) Infected chronic sacral wound possible osteomyelitis as per records Complicated UTI (urinary tract infection), hx recurrent UTIs secondary to neurogenic bladder secondary to spina bifida status post suprapubic catheter placement/hx staghorn calculi as per records/left hydronephrosis status post PCNL Diarrhea rule out recurrent C. difficile chronic diastolic heart failure, patient with a dry side paraplegia secondary to spina bifida GERD/emphysematous gastritis as per records, stable on PPI chronic anemia (baseline hemoglobin of 9-10 ) anxiety/mood disorder, at baseline hx MRSA/VRE hx medical noncompliance as per records Subclinical hypothyroidism Functional disability past tobacco abuse. ICU Levophed CS, Daptomycin, Cefepime, Flagyl Stool C. difficile CT abdomen pelvis with IV contrast to rule out abscess/osteomyelitis May need MRI to rule out osteomyelitis if CT imaging negative Replace electrolytes Orthopedics consult Re: Septic right hip (Case discussed with Dr. Page who initially requested for transfer to tertiary center due to patient complexity. Dr. Valdez of [facility] refused transfer request.) General Surgery consult Re: Infected chronic sacral decubitus wound Wound care nurse consult N.p.o. in anticipation of procedure [facility] consult contingent on CS results Recheck TSH next month PT OT eval once medically stable DVT prophylaxis SCDs Re: Possible procedure Full code Patient requests for brother to be given periodic updates regarding care. Mr. Juan Sommer, contact #[phone]. Total critical care time was 60 minutes. Text document was generated using [employer] voice recognition software. It may contain grammatical or spelling errors. Kindly contact undersigned for clarification of any documentation item in question. History of Present Illness Chief Complaint: Worsening right hip pain Primary Care Provider: Apolinar Herrera DO History obtained from patient and records. Medical history significant for chronic diastolic heart failure (EF 56%, TTE 2023), paraplegia secondary to spina bifida, recurrent UTIs secondary to neurogenic bladder status post suprapubic catheter placement, staghorn calculi as per records, left hydronephrosis status post PCNL, history of colostomy, GERD, emphysematous gastritis as per records, chronic anemia (baseline hemoglobin of 9-10 ), chronic sacral decubitus wound, chronic right hip fracture (2022), anxiety/mood disorder, hx MRSA/VRE, history of C. difficile, medical noncompliance as per records, past tobacco abuse. Last confinement September 2023 for complicated UTI and emphysematous gastritis. Patient completed antibiotic course. 2 ER visits last month, more recent of which was last March 02 for blocked suprapubic catheter status post replacement at the ER. Patient subsequently left AGAINST MEDICAL ADVICE. Discharged on Bactrim course. Last week patient noted worsening of chronic right hip pain associated with fever chills and watery diarrhea. Minimal abdominal pain with nausea emesis as per patient. No chest pain or unusual SOB. Chronic sacral wound with increasing foul-smelling drainage over the last few months as per patient. Patient noted to have right femoral neck fracture subacute to chronic on outpatient pelvic x-ray last March 2023. Fall during transfer as per records. No operative intervention as per [facility] outpatient note from April 2023. Patient received daptomycin and cefepime at the ER. SBP currently 70s after almost 3 L IV fluid administered at the ER. Medical History as above Surgical History : Circumcision, colostomy to prevent pressure sores, lithotripsy, cystoscopy, myringotomy, ex lap, toe amputation, buttock skin flap surgery, hernia repair, cystostomy tube placement, vascular procedures Family History : Heart disease, Paget's disease, prostate cancer Personal/Social history : Past tobacco abuse, occasional EtOH intake, disabled Allergies Allergy/AdvReac Type Severity Reaction Status Date / Time iodine Allergy Intermediate A Verified 03/11/24 01:22 TEEN-SKIN CONTACT BURNED THE SKIN-FELT LIKE ON FIRE adhesive Allergy Mild ADHESIVE Verified 03/11/24 01:22 TAPE RIPS SKIN APART clindamycin Allergy Mild RASH Verified 03/11/24 01:22 Iodinated Contrast Media Allergy Mild NAUSEA Verified 03/11/24 01:22 Penicillins Allergy Mild HIVES-ITCHING,HAS Verified 03/11/24 01:22 TOLERATED ANCEF IN PAST pineapple Allergy Mild "TONGUE Verified 03/11/24 01:22 WALKER AND CRACKS" vancomycin Allergy Mild hives Verified 03/11/24 01:22 aspirin AdvReac Mild GI Verified 03/11/24 01:22 SENSITIVITY Home Medications Medication Instructions Recorded Confirmed Type magnesium oxide 400 mg PO QAM 06/25/23 03/11/24 History oxybutynin chloride 5 mg tablet 5 mg PO AMHS 03/11/24 03/11/24 History pantoprazole 40 mg tablet,delayed 40 mg PO AMHS 03/11/24 03/11/24 History release paroxetine HCl 20 mg tablet 20 mg PO QAM 03/11/24 03/11/24 History polyethylene glycol 3350 17 gram 17 g PO UD PRN Constipation 03/11/24 03/11/24 History oral powder packet (Miralax) Past Med/Surg History Problem List (Updated 03/11/24 @ 06:52 by TRENTON Gomez) Septic hip Septic shock Sacral decubitus ulcer (Acute) Complication, blocked suprapubic catheter (Acute) Pressure ulcer of ischium, stage 4 (Acute) Chronic suprapubic catheter (Acute) Ureteral obstruction, left (Acute) Spina bifida (Acute) Catheter-associated urinary tract infection (Acute) Sepsis Ulcer, scrotum Wound of right buttock Stage IV pressure ulcer of buttock (Chronic) Paraplegia (Chronic) Colostomy in place (Chronic) Neurogenic bladder (Chronic) SANJEEV (iron deficiency anemia) (Chronic) GERD (gastroesophageal reflux disease) (Chronic) Spina bifida (Chronic) Amputated toe of right foot (Chronic) H/O exploratory laparotomy (Chronic) Status post skin flap graft (Chronic) History of incisional hernia repair (Chronic) Colostomy hernia Frequent UTI Hydronephrosis due to obstruction of ureter (Acute) Ureterolithiasis (Acute) Acute left flank pain (Acute) Encounter for pre-operative examination Encounter for pre-operative examination Stage II pressure ulcer of left hip (Acute) Perirectal fistula (Acute) Perineal abscess (Acute) Sepsis (Acute) Sacral decubitus ulcer (Acute) Traumatic ecchymosis of right lower leg (Acute) Pressure ulcer of left leg, unstageable (Acute) Pressure ulcer of right ischium (Acute) Traumatic wound (Acute) Catheter-associated urinary tract infection (Acute) Dysphagia Paraplegia from the waist down-confined to wheelchair Medical History Emphysematous gastritis Ischemia, bowel Complicated UTI (urinary tract infection) Malfunction of indwelling urinary catheter Hypokalemia Urolithiasis Encounter for pre-operative examination Abnormal CT of the abdomen Slow to wake up after anesthesia History of frequent urinary tract infections Environmental allergies Little catheter in place suprapubic catheter Chronic allergic rhinitis Hx of Clostridium difficile infection dx years ago Hx MRSA infection stool, dx years ago Hx of migraines History of palpitations hx holter monitoring>no findings; f/u PCP IBS (irritable bowel syndrome) Anxiety and depression HTN (hypertension) Seasonal allergies Schatzki's ring Wheelchair bound Decubitus ulcer CHRONIC; FOLLOWS W/ WOUND CLINIC- right groin area currently Chronic back pain Osteoarthritis Kidney stones Neurogenic bladder Colostomy in place Chronic gum disease Tinnitus RT EAR Hearing deficit RT EAR History of febrile seizure X 1; CHILDHOOD Deep vein thrombosis > 10 YEARS AGO - TREATED W/ BLOOD THINNERS - R/T IMMOBILITY Spina bifida SPINAL CLOSURE INFANT Surgical History History of suprapubic catheter History of esophagogastroduodenoscopy (EGD) History of sinus surgery History of surgery RT HIP WOUND DEBRIDEMENT W/ SKIN GRAFTING History of exploratory laparotomy History of incisional hernia repair X5 History of anesthesia reaction SLOW TO WAKE 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 History of cystoscopy W/ STONE EXTRACTION History of colonoscopy History of lithotripsy Status post myringotomy with insertion of tube History of tooth extraction History of esophageal dilatation Family History Other No family history of adverse response to anesthesia Social History Smoking Status: Former smoker Second Hand Exposure: No; Do You Dip or Chew Tobacco: No; Hx Alcohol Use: No Hx Substance Use: No Preferred Language: Lithuanian Communication Ability: Effective Visual Impairment: Limited Hearing Ability: Hard of Hearing Transfer Coordinator Required: No Beliefs That Will Affect Care: Latter-Day L[employer]-Day Beliefs: Holiness marital status: Single Current Living Situation: Alone Current Living 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 How many Children do You have: 0 Other Information That Helps Us Care for You: No other: Brother assists with care Feels Safe at Home: Yes Safety Concerns: Feels Safe At This Time Diet: regular during the past year weight has: remained stable Assistive Devices: Glasses and Wheelchair Review of Systems Review of Systems: As per HPI, all other systems reviewed and negative Physical Exam Physical Exam: GENERAL: Slightly uncomfortable, chronically ill, no respiratory distress SKIN: Pallor, warm HEENT: Alopecia, pale palpebral conjunctivae, no ptosis, dry buccal mucosa NECK : Supple, no tenderness CHEST : CTA, no tenderness HEART : RRR, no obvious murmurs ABDOMEN: Some distention, suprapubic catheter and left-sided ostomy in place BACK : Ulcerated wound sacrum with bone exposure with foul-smelling drainage EXTREMITIES : Minimal LE swelling with chronic deformity, no LE tenderness NEUROLOGIC : Coherent, no facial asymmetry, MMTS BUE 4/5, BLE 0 Results & Data Results & Data Vital Signs (Past 12 Hours) Vital Signs Temp Pulse Pulse Resp BP BP Pulse Ox 03/11/24 05:00 79 15 88/53 L 97 03/11/24 04:30 82 13 99/63 L 98 03/11/24 04:00 86 14 85/51 L 95 03/11/24 03:31 90 16 72/43 L 94 03/11/24 03:15 92 H 14 77/42 L 94 03/11/24 03:00 93 H 22 84/49 L 95 03/11/24 02:45 92 H 18 74/43 L 96 03/11/24 02:30 94 H 19 76/44 L 96 03/11/24 02:03 97 H 03/11/24 02:00 94 H 21 77/45 L 95 03/11/24 01:00 95 H 17 91/45 L 94 03/10/24 23:55 106 H 16 94/52 L 98 03/10/24 23:40 113 H 14 106/61 99 03/10/24 23:25 111 H 13 107/58 L 99 03/10/24 23:10 113 H 16 104/57 L 100 03/10/24 22:55 112 H 14 98 03/10/24 22:40 116 H 13 99 03/10/24 22:25 117 H 15 99 03/10/24 22:10 109 H 16 98 03/10/24 22:10 98 03/10/24 22:09 119 H 03/10/24 21:56 113 H 19 101/61 98 03/10/24 21:48 37.1 C 111 H 15 116/82 99 O2 Del Method 03/11/24 05:00 Room Air 03/11/24 04:30 Room Air 03/11/24 04:00 Room Air 03/11/24 03:31 Room Air 03/11/24 03:15 Room Air 03/11/24 03:00 Room Air 03/11/24 02:45 03/11/24 02:30 Room Air 03/11/24 02:03 03/11/24 02:00 Room Air 03/11/24 01:00 Room Air 03/10/24 23:55 Room Air 03/10/24 23:40 Room Air 03/10/24 23:25 Room Air 03/10/24 23:10 03/10/24 22:55 Room Air 03/10/24 22:40 Room Air 03/10/24 22:25 Room Air 03/10/24 22:10 Room Air 03/10/24 22:10 Room Air 03/10/24 22:09 03/10/24 21:56 Room Air 03/10/24 21:48 Room Air Laboratory Results Laboratory Results WBC 16.47 K/ul (4.8-10.8) H 03/10/24 23:24 RBC 4.16 M/uL (4.70-6.10) L 03/10/24 23:24 Hgb 9.0 g/dl (14.0-18.0) L 03/10/24 23:24 Hct 29.5 % (42.0-52.0) L 03/10/24 23:24 MCV 70.9 fL (80.0-100.0) L 03/10/24 23:24 MCH 21.6 pg (25.0-34.0) L 03/10/24 23:24 MCHC 30.5 g/dL (32.0-36.0) L 03/10/24 23:24 RDW Std Deviation 44.0 fL (36.4-46.3) 03/10/24 23:24 RDW Coeff of Sebastian 17.4 % (11.5-14.5) H 03/10/24 23:24 Plt Count 348 K/uL (130-400) 03/10/24 23:24 MPV 8.5 fL (9.4-12.4) L 03/10/24 23:24 Immature Gran % (Auto) 0.7 % 03/10/24 23:24 Neut % (Auto) 89.1 % 03/10/24 23:24 Lymph % (Auto) 4.1 % 03/10/24 23:24 Frio % (Auto) 5.6 % 03/10/24 23:24 Eos % (Auto) 0.4 % 03/10/24 23:24 Baso % (Auto) 0.1 % 03/10/24 23:24 Neut # (Auto) 14.66 K/uL (1.40-6.50) H 03/10/24 23:24 Lymph # (Auto) 0.68 K/uL (1.20-3.40) L 03/10/24 23:24 Frio # (Auto) 0.92 K/uL (0.11-0.59) H 03/10/24 23:24 Eos # (Auto) 0.07 K/uL (0.00-0.50) 03/10/24 23:24 Baso # (Auto) 0.02 K/uL (0.00-0.20) 03/10/24 23:24 Immature Gran # (Auto) 0.12 K/uL (0.01-0.20) 03/10/24 23:24 PT 13.2 Seconds (9.0-12.0) H 03/10/24 23:24 INR 1.2 (0.9-1.1) H 03/10/24 23:24 APTT 31 Seconds (21-31) 03/10/24 23:24 PTT Ratio 1.2 03/10/24 23:24 Sodium 132 mmol/L (136-145) L 03/10/24 23:24 Potassium 2.9 mmol/L (3.5-5.1) L 03/10/24 23:24 Chloride 95 mmol/L (98-107) L 03/10/24 23:24 Carbon Dioxide 27 mmol/L (21-32) 03/10/24 23:24 Anion Gap 10 (3-11) 03/10/24 23:24 BUN 10 mg/dl (6-23) 03/10/24 23:24 Creatinine 0.32 mg/dl (0.6-1.4) L 03/10/24 23:24 Est Cr Clr Drug Dosing 162.8 ml/min 03/10/24 23:24 Est GFR ( Amer) > 150.0 ml/min 03/10/24 23:24 Est GFR (Non-Af Amer) 131.9 ml/min 03/10/24 23:24 BUN/Creatinine Ratio 31.3 (10-20) H 03/10/24 23:24 Glucose 103 mg/dl (70-99(Fasting)) H 03/10/24 23:24 Lactate 1.8 mmol/L (0.4-2.0) 03/10/24 23:24 Calcium 7.7 mg/dl (8.6-10.3) L 03/10/24 23:24 Magnesium 1.4 mg/dl (1.7-2.4) L 03/10/24 23:24 Total Bilirubin 0.5 mg/dl (0.2-1.0) 03/10/24 23:24 Direct Bilirubin 0.2 mg/dl (0-0.2) 03/10/24 23:24 AST 15 U/L (13-39) 03/10/24 23:24 ALT 6 U/L (7-52) L 03/10/24 23:24 Alkaline Phosphatase 57 U/L (34-104) 03/10/24 23:24 Troponin I High Sens 5.3 pg/ml (0-20) 03/10/24 23:24 Total Protein 6.2 gm/dl (6.0-8.3) 03/10/24 23:24 Albumin 2.2 gm/dl (3.4-5.0) L 03/10/24 23:24 Procalcitonin 1.10 ng/ml (0-0.5) H 03/10/24 23:24 TSH 8.125 uIu/ml (0.300-4.500) H 03/10/24 23:24 Free T4 0.96 ng/dl (0.61-1.60) 03/10/24 23:24 Urine Color Dark Yellow 03/10/24 23:44 Urine Appearance Turbid (Clear) A 03/10/24 23:44 Urine pH 6.0 (4.5-7.5) 03/10/24 23:44 Ur Specific [place] 1.021 (1.000-1.030) 03/10/24 23:44 Urine Protein 1+ (Negative) H 03/10/24 23:44 Urine Glucose (UA) Negative (Negative) 03/10/24 23:44 Urine Ketones 1+ (Negative) H 03/10/24 23:44 Urine Blood 2+ (Negative) H 03/10/24 23:44 Urine Nitrite Negative (Negative) 03/10/24 23:44 Urine Bilirubin Negative (Negative) 03/10/24 23:44 Urine Urobilinogen Negative (Negative) 03/10/24 23:44 Ur Leukocyte Esterase 3+ (Negative) H 03/10/24 23:44 Urine WBC (Auto) >50 /hpf (0-5) H 03/10/24 23:44 Urine RBC (Auto) 11-20 /hpf (0-2) H 03/10/24 23:44 U Hyaline Cast (Auto) 6-10 /lpf (0-2) H 03/10/24 23:44 U Epithel Cells (Auto) 0-2 /hpf (0-2) 03/10/24 23:44 Urine Bacteria (Auto) 4+ (None Seen) H 03/10/24 23:44 Granular Casts P /lpf (None Prsent) 03/10/24 23:44 Urine Mucus Present (None Prsent) A 03/10/24 23:44 Impressions Abdomen/Pelvis CT 03/10/24 22:09 CR Exam(s): CT ABDOMEN + PELVIS Without Contrast EXAM: CT Abdomen and Pelvis Without Intravenous Contrast CLINICAL HISTORY: Reason for exam: large sacral ulcer, poss osteo. TECHNIQUE: Axial computed tomography images of the abdomen and pelvis without intravenous contrast. CTDI is 10.71 mGy and DLP is 538 mGy-cm. Automated exposure control was utilized for the study. A dose lowering technique was utilized adhering to the principles of ALARA. COMPARISON: 09/26/23 FINDINGS: Lung bases: Mild left basilar atelectasis or scarring. ABDOMEN: Liver: Unremarkable. Gallbladder and bile ducts: Unremarkable. No calcified stones. No ductal dilation. Pancreas: Unremarkable. No ductal dilation. Spleen: Unremarkable. No splenomegaly. Adrenals: Unremarkable. No mass. Kidneys and ureters: Left percutaneous nephrostomy catheter appears in good position, unchanged. Mild left renal pelviectasis without significant hydronephrosis. Simple cyst inferior left kidney measuring 3. 7 cm is stable, and no further follow-up is recommended. Stomach and bowel: Left lower quadrant colostomy, unchanged. No bowel dilatation to suggest obstruction. No mucosal thickening. PELVIS: Appendix: No findings to suggest acute appendicitis. Bladder: See below. Reproductive: Unremarkable as visualized. ABDOMEN and PELVIS: Intraperitoneal space: Unremarkable. No free air. No significant fluid collection. Bones/joints: Partial ostial lysis and/or fracture of the proximal right femur, unchanged as well. Surrounding this, there is increased loculated fluid. Detail limited as no IV contrast was administered, however, findings may represent bursitis or septic joint. Suprapubic cystostomy in good position within urinary bladder. 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 Bilateral hip contraction deformities. Soft tissues: Chronic sacral decubitus ulcer with osteolysis of the lower sacrum and coccyx, characteristic for chronic osteomyelitis, unchanged. Old ventral hernia repair with anterior abdominal mesh, unchanged. Vasculature: Unremarkable. No abdominal aortic aneurysm. Lymph nodes: Unremarkable. No enlarged lymph nodes. IMPRESSION: 1. Partial osteolysis and/or fracture of the proximal right femur. Surrounding this, there is increased loculated fluid. Detail limited as no IV contrast was administered, however, findings may represent bursitis or septic joint. 2. Chronic sacral decubitus ulcer with osteolysis of the lower sacrum and coccyx, characteristic for chronic osteomyelitis, unchanged. Communications: Verify Receipt Electronically signed by: Lyndon Lovell MD 03/11/24 01:11 AM Diagnostic Findings Chest x-ray as per my interpretation no congestion EKG as per my interpretation : Rate 110, sinus tachycardia, LAD, LAFB, nonspecific T wave abnormalities
[2024-03-11] MEDS ORDERED: ACETAMINOPHEN 325 MG TAB PO PRN (05:41)
[2024-03-11] MEDS ORDERED: PROMETHAZINE HCL 6.25 MG in SODIUM CHLORIDE 0.9% 50 ML IV PRN (05:41)
[2024-03-11] MEDS ORDERED: oxyCODONE HCL IR 5 MG TAB (IMMEDIATE RELEASE) PO PRN (05:41)
--- NOTE | 2024-03-11 06:34 | Critical Care Consultation ---
Date of Consultation March 11, 2024 Assessment & Plan (1) Septic shock: Reason Critically Ill: 68-year-old male with past medical history significant for spina bifida with paraplegia, Suprapubic catheter and nephrostomy tube, colostomy, Chronic sacral wound with chronic osteomyelitis and Recurrent UTIs now presents to the ICU with septic shock requiring vasopressor support likely from septic hip and currently awaiting surgical Intervention this morning. Neuro - [facility]: Negative History of spina bifida and paraplegic. Requires wheelchair at baseline. Cardiac - Shock Most likely due to sepsis. Given large sacral wound and CT evidence of septic joint. Admitted to ICU for management pending surgical intervention. - Received 2 L crystalloid bolus in ED, remained hypotensive and now requiring vasopressor support with Levophed drip to maintain MAP greater than 65. -Previous TTE in 2021 with normal EF and grade 1 diastolic dysfunction. Will repeat study on this admission - Continue aggressive fluid resuscitation as tolerated - Random cortisol pending -Avoid antihypertensives - Continuous monitoring on telemetry Respiratory - No history of pulmonary disease. Currently maintaining oxygen saturations on room air. Continuous monitoring on pulse ox GI - GERDPPI Colostomyno issues. Monitor output Remain n.p.o. pending surgery RENAL/LYTES - Creatinine within normal limits. Monitor routine BMPs and replete electrolytes as indicated. - Suprapubic Little and right nephrostomy tubes secondary to neurogenic bladder with history of hydronephrosis. Follows with Dr. Graves for urology. No issues at this time. Monitor strict I's and O's ENDO - No history of diabetes. ICU hyperglycemic protocol TSH elevated with normal T4 HEME -H&H stable, monitor routine CBC. Type and screen pending ID - Sepsispatient with CT evidence of right septic joint with fluid collection Surrounding the proximal femur. Patient also has history of multiple drug- resistant UTIs and a large sacral/decubitus wound as possible sources. - Blood cultures, urine culture, wound culture pending - Continue daptomycin, cefepime, Flagyl for now DVT PROPHYLAXIS - SCDs, hold anticoagulation given plan for surgical intervention I have personally spent 48 minutes of critical care time in the direct management of this patient. This is a life/limb threatening event. This includes time spent evaluating patient, direct bedside care, chart review, placing orders, interpretation of diagnostic studies, discussion with consultants, patient, and family members, as well as other required patient management activities. This time is exclusive of all separately billable procedures, and teaching time and separate from and in addition to any other critical care service time. Thank you for allowing us to participate in the care of this patient. Please refer to my attending physician's documentation for any further recommendations. (2) Septic hip: (3) Chronic suprapubic catheter: (4) Stage IV pressure ulcer of buttock: (5) Paraplegia: (6) Colostomy in place: (7) GERD (gastroesophageal reflux disease): Supervising Physician Co-Signing Physician Notes Patient seen and examined. EMR reviewed. Discussed with critical care CELE as well as with multiple stools above specialist including general surgery, orthopedics, and interventional radiology. The patient is septic. I assume the source is the hip but will need to prove this. After discussion with orthopedics we will proceed with IR guided FNA of the right hip. If that is purulent will reconvene with orthopedics to determine whether or not local washout can be performed or if the patient needs to be transferred to a higher level of care. Discussed with general surgery. The wound actually does not require debridement currently but there is obvious bone identified. The patient's been noncompliant with wound care. He likely has osteomyelitis. Antibiotics will be transition to Zosyn (prior history of hives but will monitor) as well as daptomycin pending culture results. If the patient remains here he will require an active infectious disease consultation. If he is transferred, ID can see him at a tertiary facility. Will continue to work on weaning Levophed. Okay in short-term for peripheral access but if this is going to be a prolonged thing, may require PICC line for IV antibiotics. Discussed with bedside critical care nurse. An additional 50 minutes critical care time spent evaluating managing and stabilizing patient History of Present Illness Attending Physician: Harsh Garcia MD History of Present Illness Patient is a 68-year-old male with past medical history significant for spina bifida with paraplegia, wheelchair-bound, colostomy, Left nephrostomy tube, Suprapubic Little, recurrent multidrug-resistant UTIs, and chronic sacral wound who presented to the emergency department last evening With complaint of hip pain ongoing for the past 2 months and recent development of chills and possible fever over the past few days. Patient underwent CT abdomen and pelvis which revealed Partial osteolysis and/or fracture of the proximal right femur with surrounding loculated fluid representing bursitis or septic joint, along with a chronic sacral decubitus ulcer with osteolysis of the lower sacrum and coccyx characteristic for chronic osteomyelitis. He was noted to have leukocytosis with WBC of 16, remained afebrile. Patient became hypotensive earlier this morning and was started on vasopressor support in the ED. Ortho consulted and plan for patient to go to the OR and this morning. On arrival to the ICU the patient is alert and oriented without acute distress. He is maintaining oxygen saturation on room air, and is currently sinus rhythm on monitor. Patient again reports right hip pain along with pain from his sacral wound which has been ongoing for months. He also reports subjective fevers at home, and states that he was taking an antibiotic for presumed UTI but is unsure of the name. He denies any headache, dizziness, syncopal events, cough or congestion, shortness of breath, chest pain or palpitations, abdominal pain, nausea or vomiting. Patient to remain in ICU for further management pending surgical intervention. Allergies Allergy/AdvReac Type Severity Reaction Status Date / Time iodine Allergy Intermediate A Verified 03/11/24 01:22 TEEN-SKIN CONTACT BURNED THE SKIN-FELT LIKE ON FIRE adhesive Allergy Mild ADHESIVE Verified 03/11/24 01:22 TAPE RIPS SKIN APART clindamycin Allergy Mild RASH Verified 03/11/24 01:22 Iodinated Contrast Media Allergy Mild NAUSEA Verified 03/11/24 01:22 Penicillins Allergy Mild HIVES-ITCHING,HAS Verified 03/11/24 01:22 TOLERATED ANCEF IN PAST pineapple Allergy Mild "TONGUE Verified 03/11/24 01:22 WALKER AND CRACKS" vancomycin Allergy Mild hives Verified 03/11/24 01:22 aspirin AdvReac Mild GI Verified 03/11/24 01:22 SENSITIVITY Home Medications Medication Instructions Recorded Confirmed Type magnesium oxide 400 mg PO QAM 06/25/23 03/11/24 History oxybutynin chloride 5 mg tablet 5 mg PO AMHS 03/11/24 03/11/24 History pantoprazole 40 mg tablet,delayed 40 mg PO AMHS 03/11/24 03/11/24 History release paroxetine HCl 20 mg tablet 20 mg PO QAM 03/11/24 03/11/24 History polyethylene glycol 3350 17 gram 17 g PO UD PRN Constipation 03/11/24 03/11/24 History oral powder packet (Miralax) Patient History Medical History Emphysematous gastritis Ischemia, bowel Complicated UTI (urinary tract infection) Malfunction of indwelling urinary catheter Hypokalemia Urolithiasis Encounter for pre-operative examination Abnormal CT of the abdomen Slow to wake up after anesthesia History of frequent urinary tract infections Environmental allergies Little catheter in place suprapubic catheter Chronic allergic rhinitis Hx of Clostridium difficile infection dx years ago Hx MRSA infection stool, dx years ago Hx of migraines History of palpitations hx holter monitoring>no findings; f/u PCP IBS (irritable bowel syndrome) Anxiety and depression HTN (hypertension) Seasonal allergies Schatzki's ring Wheelchair bound Decubitus ulcer CHRONIC; FOLLOWS W/ WOUND CLINIC- right groin area currently Chronic back pain Osteoarthritis Kidney stones Neurogenic bladder Colostomy in place Chronic gum disease Tinnitus RT EAR Hearing deficit RT EAR History of febrile seizure X 1; CHILDHOOD Deep vein thrombosis > 10 YEARS AGO - TREATED W/ BLOOD THINNERS - R/T IMMOBILITY Spina bifida SPINAL CLOSURE Surgical History History of suprapubic catheter History of esophagogastroduodenoscopy (EGD) History of sinus surgery History of surgery RT HIP WOUND DEBRIDEMENT W/ SKIN GRAFTING History of exploratory laparotomy History of incisional hernia repair X5 History of anesthesia reaction SLOW TO WAKE 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 History of cystoscopy W/ STONE EXTRACTION History of colonoscopy History of lithotripsy Status post myringotomy with insertion of tube History of tooth extraction History of esophageal dilatation Family History Other No family history of adverse response to anesthesia Social History Smoking Status: Former smoker Second Hand Exposure: No; Do You Dip or Chew Tobacco: No; Hx Alcohol Use: No Hx Substance Use: No Preferred Language: Swedish Communication Ability: Effective Visual Impairment: Limited Hearing Ability: Hard of Hearing Comfort Filler Required: No Beliefs That Will Affect Care: Cultural marital status: Single Current Living Situation: Alone Current Living 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 How many Children do You have: 0 Other Information That Helps Us Care for You: No other: Brother assists with care Feels Safe at Home: Yes Safety Concerns: Feels Safe At This Time Diet: regular during the past year weight has: remained stable Assistive Devices: Glasses and Wheelchair Review of Systems Review of Systems: All systems reviewed & are unremarkable except as noted in HPI & below Physical Exam Constitutional: + frail appearing; no acute distress Eyes: PERRL, conjunctivae normal, anicteric sclerae ENMT: external ear and nose normal, oropharynx normal Neck: trachea midline, no thyromegaly Respiratory: normal respiratory effort, lungs clear to auscultation Cardiovascular: RRR, no murmur, no edema Heart Sounds: normal S1 and normal S2; no murmur Gastrointestinal (Abdomen): normal bowel sounds, soft, nontender, no hepatosplenomegaly Musculoskeletal: Lower extremities atrophied and Partial amputations of feet bilaterally. Skin: Large tunneling sacral/decubitus ulcer with serosanguineous drainage. No rashes, warm and dry Neurologic: ANO x 3. PERRLA. No facial droop or dysarthria. Paraplegia. Psychiatric: Orientation: oriented x 3 and cooperative Genitourinary: Suprapubic catheter with dark concentrated urine. Results & Data Results & Data Vital Signs (Past 12 Hours) Vital Signs Temp Pulse Pulse Resp BP BP Pulse Ox 03/11/24 05:00 79 15 88/53 L 97 03/11/24 04:30 82 13 99/63 L 98 03/11/24 04:00 86 14 85/51 L 95 03/11/24 03:31 90 16 72/43 L 94 03/11/24 03:15 92 H 14 77/42 L 94 03/11/24 03:00 93 H 22 84/49 L 95 03/11/24 02:45 92 H 18 74/43 L 96 03/11/24 02:30 94 H 19 76/44 L 96 03/11/24 02:03 97 H 03/11/24 02:00 94 H 21 77/45 L 95 03/11/24 01:00 95 H 17 91/45 L 94 03/10/24 23:55 106 H 16 94/52 L 98 03/10/24 23:40 113 H 14 106/61 99 03/10/24 23:25 111 H 13 107/58 L 99 03/10/24 23:10 113 H 16 104/57 L 100 03/10/24 22:55 112 H 14 98 03/10/24 22:40 116 H 13 99 03/10/24 22:25 117 H 15 99 03/10/24 22:10 109 H 16 98 03/10/24 22:10 98 03/10/24 22:09 119 H 03/10/24 21:56 113 H 19 101/61 98 03/10/24 21:48 37.1 C 111 H 15 116/82 99 O2 Del Method 03/11/24 05:00 Room Air 03/11/24 04:30 Room Air 03/11/24 04:00 Room Air 03/11/24 03:31 Room Air 03/11/24 03:15 Room Air 03/11/24 03:00 Room Air 03/11/24 02:45 03/11/24 02:30 Room Air 03/11/24 02:03 03/11/24 02:00 Room Air 03/11/24 01:00 Room Air 03/10/24 23:55 Room Air 03/10/24 23:40 Room Air 03/10/24 23:25 Room Air 03/10/24 23:10 03/10/24 22:55 Room Air 03/10/24 22:40 Room Air 03/10/24 22:25 Room Air 03/10/24 22:10 Room Air 03/10/24 22:10 Room Air 03/10/24 22:09 03/10/24 21:56 Room Air 03/10/24 21:48 Room Air Diagnostic Findings ADDENDUM ADDENDUM: 03/11/24 01:29 Verify Receipt Verified receipt with AKOSUA Rubio. Given to Dr. Carter on 03/11 01:29 (-04:00) Electronically signed by: Lyndon Lovell MD Electronically signed by: Lyndon Lovell MD 03/11/24 01:11 AM ADDENDUM END Exam(s): CT ABDOMEN + PELVIS Without Contrast EXAM: CT Abdomen and Pelvis Without Intravenous Contrast CLINICAL HISTORY: Reason for exam: large sacral ulcer, poss osteo. TECHNIQUE: Axial computed tomography images of the abdomen and pelvis without intravenous contrast. CTDI is 10.71 mGy and DLP is 538 mGy-cm. Automated exposure control was utilized for the study. A dose lowering technique was utilized adhering to the principles of ALARA. COMPARISON: 09/26/23 FINDINGS: Lung bases: Mild left basilar atelectasis or scarring. ABDOMEN: Liver: Unremarkable. Gallbladder and bile ducts: Unremarkable. No calcified stones. No ductal dilation. Pancreas: Unremarkable. No ductal dilation. Spleen: Unremarkable. No splenomegaly. Adrenals: Unremarkable. No mass. Kidneys and ureters: Left percutaneous nephrostomy catheter appears in good position, unchanged. Mild left renal pelviectasis without significant hydronephrosis. Simple cyst inferior left kidney measuring 3. 7 cm is stable, and no further follow-up is recommended. Stomach and bowel: Left lower quadrant colostomy, unchanged. No bowel dilatation to suggest obstruction. No mucosal thickening. PELVIS: Appendix: No findings to suggest acute appendicitis. Bladder: See below. Reproductive: Unremarkable as visualized. ABDOMEN and PELVIS: Intraperitoneal space: Unremarkable. No free air. No significant fluid collection. Bones/joints: Partial ostial lysis and/or fracture of the proximal right femur, unchanged as well. Surrounding this, there is increased loculated fluid. Detail limited as no IV contrast was administered, however, findings may represent bursitis or septic joint. Suprapubic cystostomy in good position within urinary bladder. 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 Bilateral hip contraction deformities. Soft tissues: Chronic sacral decubitus ulcer with osteolysis of the lower sacrum and coccyx, characteristic for chronic osteomyelitis, unchanged. Old ventral hernia repair with anterior abdominal mesh, unchanged. Vasculature: Unremarkable. No abdominal aortic aneurysm. Lymph nodes: Unremarkable. No enlarged lymph nodes. IMPRESSION: 1. Partial osteolysis and/or fracture of the proximal right femur. Surrounding this, there is increased loculated fluid. Detail limited as no IV contrast was administered, however, findings may represent bursitis or septic joint. 2. Chronic sacral decubitus ulcer with osteolysis of the lower sacrum and coccyx, characteristic for chronic osteomyelitis, unchanged. Communications: Verify Receipt Electronically signed by: Lyndon Lovell MD 03/11/24 01:11 AM Coding Level of Care Code 12208 CRITICAL CARE EA ADD 30M Diagnoses Septic shock A41.9; R65.21 Septic hip M00.9 Chronic suprapubic catheter Z93.59 Stage IV pressure ulcer of buttock L89.304 Laterality: unspecified laterality Paraplegia G82.[address] Z93.3 GERD (gastroesophageal reflux disease) K21.9 (4) Stage IV pressure ulcer of buttock Laterality: unspecified laterality Qualified Code(s): L89.304 - Pressure ulcer of unspecified buttock, stage 4
[2024-03-11] MEDS ORDERED: POLYETHYLENE (MIRALAX) 17 GM PACK PO PRN (06:37)
[2024-03-11] MEDS: PLASMA-LYTE A 1,000 ML IV ONE (06:40)
[2024-03-11] MEDS: PROMETHAZINE 6.25 MG/50.25 ML BAG IV STA (06:41)
--- NOTE | 2024-03-11 06:56 | XRay Report ---
XR chest 1V portable CLINICAL HISTORY: Sepsis TECHNIQUE: Single frontal radiograph of the chest was obtained. Comparison: Comparison is made to chest radiograph 02/03/2022 FINDINGS: No lines and tubes are seen. The cardiomediastinal silhouette is normal. The lungs are clear. No evid ence of pleural effusion or pneumothorax. IMPRESSION: No acute abnormalities and in particular no radiographic evidence of pneumonia. ACT 112: Negative or not required by law. Electronically signed by: Jakob Smith M.D. 03/11/2024 6:55 AM
--- NOTE | 2024-03-11 07:39 | Orthopedic Consultation ---
Date of Service March 11, 2024 Assessment & Plan (1) Septic hip: (2) Sacral decubitus ulcer: (3) Pressure ulcer of ischium, stage 4: Plan 68 yo non-ambulatory M with spina bifida and chronic sacral wound managed by [facility] and referred to tertiary care on several episodes presents to ER with increasing right hip pain and malaise. Found to be septic. Transfer to tertiary refused overnight until source control established. Stabilized on broad spectrum abx and pressors. Hx of multi-drug resistant urosepsis with indwelling catheters. There is a chronic femoral neck non-union with CT evidence of increasing loculations, which could be possible source. - Recommend attempt at IR aspiration of the right hip joint/fracture site to establish source. I attempted aspiration during wound inspection, but was unsuccessful without guidance. - Could be managed with serial aspiration or indwelling drain to avoid invasive surgery. - If aspiration attempt is unsuccessful, will need sacral wound exploration and irrigation and debridement of right hip joint from the posterior approach, which may be extensive with blood loss. - Prefer establishing necessity of surgical debridement of the hip with aspiration if possible. - Please contact me via [employer] for change in plan or worsening clinical status Addendum: As of late morning, there was successful aspiration with interventional radiology decompressing 60 cc of purulent material from the femoral acetabular region. Patient was stable with pressor support and broad-spectrum IV coverage. Given his overall medical complexity, it was my recommendation to proceed with transfer to higher level of care. He may need an invasive irrigation and debridement of the femoral acetabular joint which may be of the equivalent of a Girdlestone versus hip or disarticulation. Defer to orthopedic traumatology for this level of procedure and multispecialty aftercare. Recommend transfer to higher level care. With the source identified and provisionally decompressed, stable for transfer in my opinion prior to irrigation and debridement here. History of Present Illness Reason for Consultation: Right hip pain and sepsis Requesting Physician: . Attending Physician: Harsh Garcia MD 68-year-old nonambulatory male with a history of spina bifida and chronic sacral grade 4 decubitus ulcer managed for years by [facility] and the [facility] wound care center. He did have a noted history in the past years for femoral n rehana fracture on the right side. It was treated nonsurgically at the recommendation of [facility] physicians. Over the past several days, has noticed increasing pain, malaise, and fever. He presented to the emergency room overnight as symptoms were worsening. He was admitted to the ICU with sepsis. He has a history of urinary tract infections and urosepsis with multidrug- resistant organisms. Allergies Allergy/AdvReac Type Severity Reaction Status Date / Time iodine Allergy Intermediate A Verified 03/11/24 01:22 TEEN-SKIN CONTACT BURNED THE SKIN-FELT LIKE ON FIRE adhesive Allergy Mild ADHESIVE Verified 03/11/24 01:22 TAPE RIPS SKIN APART clindamycin Allergy Mild RASH Verified 03/11/24 01:22 Iodinated Contrast Media Allergy Mild NAUSEA Verified 03/11/24 01:22 Penicillins Allergy Mild HIVES-ITCHING,HAS Verified 03/11/24 01:22 TOLERATED ANCEF IN PAST pineapple Allergy Mild "TONGUE Verified 03/11/24 01:22 WALKER AND CRACKS" vancomycin Allergy Mild hives Verified 03/11/24 01:22 aspirin AdvReac Mild GI Verified 03/11/24 01:22 SENSITIVITY Home Medications Medication Instructions Recorded Confirmed Type magnesium oxide 400 mg PO QAM 06/25/23 03/11/24 History oxybutynin chloride 5 mg tablet 5 mg PO AMHS 03/11/24 03/11/24 History pantoprazole 40 mg tablet,delayed 40 mg PO AMHS 03/11/24 03/11/24 History release paroxetine HCl 20 mg tablet 20 mg PO QAM 03/11/24 03/11/24 History polyethylene glycol 3350 17 gram 17 g PO UD PRN Constipation 03/11/24 03/11/24 History oral powder packet (Miralax) Past Med/Surg History Problem List Hypomagnesemia (Acute) Hypokalemia (Acute) UTI (urinary tract infection) (Acute) Cellulitis (Acute) Septic joint (Acute) Hypocalcemia (Acute) Leukocytosis (Acute) Sacral decubitus ulcer (Acute) Spina bifida (Acute) Weakness (Acute) Septic hip Septic shock Sacral decubitus ulcer (Acute) Complication, blocked suprapubic catheter (Acute) Pressure ulcer of ischium, stage 4 (Acute) Chronic suprapubic catheter (Acute) Ureteral obstruction, left (Acute) Spina bifida (Acute) Catheter-associated urinary tract infection (Acute) Sepsis Ulcer, scrotum Wound of right buttock Stage IV pressure ulcer of buttock (Chronic) Paraplegia (Chronic) Colostomy in place (Chronic) Neurogenic bladder (Chronic) SANJEEV (iron deficiency anemia) (Chronic) GERD (gastroesophageal reflux disease) (Chronic) Spina bifida (Chronic) Amputated toe of right foot (Chronic) H/O exploratory laparotomy (Chronic) Status post skin flap graft (Chronic) History of incisional hernia repair (Chronic) Colostomy hernia Frequent UTI Hydronephrosis due to obstruction of ureter (Acute) Ureterolithiasis (Acute) Acute left flank pain (Acute) Encounter for pre-operative examination Encounter for pre-operative examination Stage II pressure ulcer of left hip (Acute) Perirectal fistula (Acute) Perineal abscess (Acute) Sepsis (Acute) Sacral decubitus ulcer (Acute) Traumatic ecchymosis of right lower leg (Acute) Pressure ulcer of left leg, unstageable (Acute) Pressure ulcer of right ischium (Acute) Traumatic wound (Acute) Catheter-associated urinary tract infection (Acute) Dysphagia Paraplegia from the waist down-confined to wheelchair Medical History Emphysematous gastritis Ischemia, bowel Complicated UTI (urinary tract infection) Malfunction of indwelling urinary catheter Hypokalemia Urolithiasis Encounter for pre-operative examination Abnormal CT of the abdomen Slow to wake up after anesthesia History of frequent urinary tract infections Environmental allergies Little catheter in place suprapubic catheter Chronic allergic rhinitis Hx of Clostridium difficile infection dx years ago Hx MRSA infection stool, dx years ago Hx of migraines History of palpitations hx holter monitoring>no findings; f/u PCP IBS (irritable bowel syndrome) Anxiety and depression HTN (hypertension) Seasonal allergies Schatzki's ring Wheelchair bound Decubitus ulcer CHRONIC; FOLLOWS W/ WOUND CLINIC- right groin area currently Chronic back pain Osteoarthritis Kidney stones Neurogenic bladder Colostomy in place Chronic gum disease Tinnitus RT EAR Hearing deficit RT EAR History of febrile seizure X 1; CHILDHOOD Deep vein thrombosis > 10 YEARS AGO - TREATED W/ BLOOD THINNERS - R/T IMMOBILITY Spina bifida SPINAL CLOSURE INFANT Surgical History History of suprapubic catheter History of esophagogastroduodenoscopy (EGD) History of sinus surgery History of surgery RT HIP WOUND DEBRIDEMENT W/ SKIN GRAFTING History of exploratory laparotomy History of incisional hernia repair X5 History of anesthesia reaction SLOW TO WAKE 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 History of cystoscopy W/ STONE EXTRACTION History of colonoscopy History of lithotripsy Status post myringotomy with insertion of tube History of tooth extraction History of esophageal dilatation Family History Other No family history of adverse response to anesthesia Social History Smoking Status: Former smoker Second Hand Exposure: No; Do You Dip or Chew Tobacco: No; Hx Alcohol Use: No Hx Substance Use: No Preferred Language: Hebrew Communication Ability: Effective Visual Impairment: Limited Hearing Ability: Hard of Hearing Independent Agent Music Education Required: No Beliefs That Will Affect Care: Cultural marital status: Single Current Living Situation: Alone Current Living 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 Physical Exam Sacrum: Patient was rolled into the lateral decubitus position to evaluate his sacral decubitus ulcer. There is a large full-thickness wound extending down to his perineum involving the ischium of his right affected side. No gross purulence. No sinus tract could be found. An 18-gauge needle was used to attempt an aspiration of the posterior hip capsule. Anatomy was difficult to discern, and there was no reflux of fluid. Minimal discomfort with manipulation of the sacral tissues and posterior hip. He complained of pain with palpation of the greater trochanteric region. Right hip: Focal tenderness about the greater trochanter and groin. Irritable with any manipulation of the femoral acetabular joint on the right side. No draining sinus tracts. Skin is intact over the anterior lateral sides of the hip. The lower extremity is notable for atrophy and chronic deformity from spina bifida and nonambulatory status. The limb is well-perfused. Constitutional WD/WN, vitals as above + ill appearing and + frail appearing; no acute distress and no altered mental status Respiratory normal respiratory effort; no labored breathing Cardiovascular Extremities: normal capillary refill Results & Data Results & Data Laboratory Results H & H 03/10/24 Range/Units 23:24 Hgb 9.0 L (14.0-18.0) g/dl Hct 29.5 L (42.0-52.0) % Coagulation 03/10/24 Range/Units 23:24 INR 1.2 H (0.9-1.1) Microbiology 03/11/24 12:15 Gram Stain - Final Hip,Right 03/11/24 Unknown Gram Stain - Final Sacrum Microbiology 03/11/24 12:15 Hip,Right Gram Stain - Final: Aspiration by interventional radiology revealed 60 cc of purulent material. Gram stain shows few gram- positive cocci. 03/11/24 Unknown Sacrum Gram Stain - Final Diagnostic Findings CT of the abdomen pelvis reveal loculated fluid collection within the right femoral acetabular joint with evidence of chronic fracture deformity. PG Care Time/CCT Total # of Minutes Spent Total Time Spent with Patient: Total time spent is greater than 50% in coordination of care (as documented) at patient's floor/unit and/or counseling patient: Coding Level of Care Code 72655 IN/OBS CONSULT LVL 4,60M Diagnoses Septic hip M00.9 Sacral decubitus ulcer L89.159 Pressure injury of right ischium, stage 4 L89.314 Laterality: right (3) Pressure ulcer of ischium, stage 4 Laterality: right Qualified Code(s): L89.314 - Pressure ulcer of right buttock, stage 4
[2024-03-11 07:51] LABS: Basophils # (auto) 0.04 K/uL (0.00-0.20); Basophils % (auto) 0.2 %; Eosinophils # (auto) 0.11 K/uL (0.00-0.50); Eosinophils % (auto) 0.6 %; Hematocrit (blood only) 24.6 % (42.0-52.0); Hemoglobin 7.5 g/dl (14.0-18.0); Immature Granulocytes # (auto) 0.16 K/uL (0.01-0.20); Immature Granulocytes % (auto) 0.8 %; Lymphocytes # (auto) 1.07 K/uL (1.20-3.40); Lymphocytes % (auto) 5.6 %; Mean Corpuscular Hemoglobin 21.9 pg (25.0-34.0); Mean Corpuscular Hgb Conc 30.5 g/dL (32.0-36.0); Mean Corpuscular Volume 71.7 fL (80.0-100.0); Mean Platelet Volume 8.4 fL (9.4-12.4); Monocytes % (auto) 5.8 %; Neutrophils # (auto) 16.59 K/uL (1.40-6.50); Platelet Count 364 K/uL (130-400); RDW Coefficient of Variation 17.5 % (11.5-14.5); RDW Standard Deviation 45.2 fL (36.4-46.3); Red Blood Count 3.43 M/uL (4.70-6.10); White Blood Count 19.07 K/ul (4.8-10.8)
[2024-03-11 08:12] LABS: Anion Gap 7 (3-11); Blood Urea Nitrogen 7 mg/dl (6-23); Carbon Dioxide 23 mmol/L (21-32); Chloride 105 mmol/L (98-107); Creatinine Clr Calc Pharmacy 215.8 ml/min; Est GFR (African American) > 150.0 ml/min; Glucose 111 mg/dl (70-99(Fasting)); Magnesium 1.9 mg/dl (1.7-2.4); Potassium 4.5 mmol/L (3.5-5.1); Sodium 135 mmol/L (136-145)
[2024-03-11 08:18] LABS: Microcytosis Present; Polychromasia 1+
[2024-03-11] MEDS: OPTIRAY 320 100ml IV ONE (08:32)
[2024-03-11] MEDS ORDERED: ONDANSETRON INJ 2 MG/ML 2 ML VIAL IV PRN (08:33)
[2024-03-11] MEDS: ICU Protocol for HYPERglycemia SCH (08:33)
[2024-03-11] MEDS: ONDANSETRON INJ 2 MG/ML 2 ML VIAL ONE (08:45)
--- NOTE | 2024-03-11 09:38 | CT Scan Report ---
CT abd pelvis IV con only CLINICAL HISTORY: worsening hip pain, wound ro osteomyelitis TECHNIQUE: Helical axial images of the abdomen and pelvis were obtained and displayed. Automated dose lowering techniques and/or adjustment according to patient size were utilized for this exam. This e xam was performed with intravenous contrast. CT DOSE: 1211.76 mGy.cm COMPARISON: Comparison is made to CT abdomen pelvis 03/11/[address] abdomen pelvis 09/26/2023 FINDINGS: Lower chest: Bibasilar atelectasis versus scarring is seen. Small pericardial effusion is seen. Liver: Unremarkable. No focal lesions are seen. Gallbladder and biliary tree: No calcified gallstones. Normal caliber wall. No intra- or extrahepatic biliary ductal dilation. Pancreas: Fatty replacement of the pancreas is seen. Spleen: Unremarkable. Adrenals: Right adrenal myelolipoma is seen. Kidneys and ureters: Bilateral renal cysts are seen. A left percutaneous nephrostomy is seen. Multipl e stones are in the left mid ureter with associated hydroureter. Bladder: Suprapubic catheter is seen draining a bladder with thickened thorpe. Reproductive organs: Prostatic calcifications are seen which may represent prior hemorrhage or granul omatous disease. Bowel: The appendix is normal. There is postsurgical change of left lower quadrant colostomy. Lymph nodes Retroperitoneal: Unremarkable. Pelvic: Unremarkable. Mesenteric: Unremarkable. Peritoneum: Normal. Vessels: Unremarkable. Abdominal wall: Postsurgical changes are seen in the antrum of the stomach. Mild soft tissue edema is seen most prominently in the left abdominal wall. Bones: Redemonstration of chronic right femoral fracture. Soft tissue swelling, fluid collection, and bony erosions are unchanged from the prior exam. In particular, the periarticular fluid collection i s overall similar to prior exam measuring 4.9 cm with prominent rim enhancement. Erosion is seen most prominently in the right iliac wing and possibly in the fragmented bone. Findings of bilateral hip dysplasia and spina bifida occulta again seen. In addition, there is again seen erosion/osteomyelitis is of the sacrum with sacral decubitus ulcer, soft tissue swelling and subcutaneous emphysema, however no drainable fluid collection is seen IMPRESSION: 1. Right hip rim-enhancing fluid collection is again seen with a small amount of bony erosion. Findi ngs are stable from prior CT but new from exam of 09/26/2023 and likely represent osteomyelitis/septic arthritis. 2. Fragmentation, soft tissue swelling, and subcutaneous emphysema about the sacrum is new from exam of September as well, this likely represents osteomyelitis from a sacral decubitus ulcer. No drainable fluid collection is seen. 3. Left percutaneous nephrostomy with hydroureter and obstructing distal left sided stones. 4. Redemonstration of left lower quadrant colostomy and additional findings as above. ACT 112: Negative or not required by law. Electronically signed by: Jakob Smith M.D. 03/11/2024 9:35 AM
--- NOTE | 2024-03-11 09:41 | Surgery Consultation ---
Date of Consultation March 11, 2024 Assessment & Plan (1) Sacral decubitus ulcer: wound granulating well dressings per wound nurse/clinic ortho to consider sacral debridement of bony sacrum, soft tissues have no need for debridement sepsis likely from right hip, likely IR drainage to control sepsis no general surgical issues History of Present Illness Attending Physician: Harsh Garcia MD History of Present Illness This is a 68YO male with past medical history significant for spina bifida with paraplegia, colostomy, and a chronic sacral wound debrided by Dr Schwarz, now seen in wound clinic with a chronic wound and chronic osteomyelitis. He is admitted in the ICU with septic shock requiring vasopressor support likely from septic hip, CT scan shows likely septic hip. Allergies Allergy/AdvReac Type Severity Reaction Status Date / Time iodine Allergy Intermediate A Verified 03/11/24 01:22 TEEN-SKIN CONTACT BURNED THE SKIN-FELT LIKE ON FIRE adhesive Allergy Mild ADHESIVE Verified 03/11/24 01:22 TAPE RIPS SKIN APART clindamycin Allergy Mild RASH Verified 03/11/24 01:22 Iodinated Contrast Media Allergy Mild NAUSEA Verified 03/11/24 01:22 Penicillins Allergy Mild HIVES-ITCHING,HAS Verified 03/11/24 01:22 TOLERATED ANCEF IN PAST pineapple Allergy Mild "TONGUE Verified 03/11/24 01:22 WALKER AND CRACKS" vancomycin Allergy Mild hives Verified 03/11/24 01:22 aspirin AdvReac Mild GI Verified 03/11/24 01:22 SENSITIVITY Home Medications Medication Instructions Recorded Confirmed Type magnesium oxide 400 mg PO QAM 06/25/23 03/11/24 History oxybutynin chloride 5 mg tablet 5 mg PO AMHS 03/11/24 03/11/24 History pantoprazole 40 mg tablet,delayed 40 mg PO AMHS 03/11/24 03/11/24 History release paroxetine HCl 20 mg tablet 20 mg PO QAM 03/11/24 03/11/24 History polyethylene glycol 3350 17 gram 17 g PO UD PRN Constipation 03/11/24 03/11/24 History oral powder packet (Miralax) Patient History Medical History Emphysematous gastritis Ischemia, bowel Complicated UTI (urinary tract infection) Malfunction of indwelling urinary catheter Hypokalemia Urolithiasis Encounter for pre-operative examination Abnormal CT of the abdomen Slow to wake up after anesthesia History of frequent urinary tract infections Environmental allergies Little catheter in place suprapubic catheter Chronic allergic rhinitis Hx of Clostridium difficile infection dx years ago Hx MRSA infection stool, dx years ago Hx of migraines History of palpitations hx holter monitoring>no findings; f/u PCP IBS (irritable bowel syndrome) Anxiety and depression HTN (hypertension) Seasonal allergies Schatzki's ring Wheelchair bound Decubitus ulcer CHRONIC; FOLLOWS W/ WOUND CLINIC- right groin area currently Chronic back pain Osteoarthritis Kidney stones Neurogenic bladder Colostomy in place Chronic gum disease Tinnitus RT EAR Hearing deficit RT EAR History of febrile seizure X 1; CHILDHOOD Deep vein thrombosis > 10 YEARS AGO - TREATED W/ BLOOD THINNERS - R/T IMMOBILITY Spina bifida SPINAL CLOSURE Surgical History History of suprapubic catheter History of esophagogastroduodenoscopy (EGD) History of sinus surgery History of surgery RT HIP WOUND DEBRIDEMENT W/ SKIN GRAFTING History of exploratory laparotomy History of incisional hernia repair X5 History of anesthesia reaction SLOW TO WAKE 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 History of cystoscopy W/ STONE EXTRACTION History of colonoscopy History of lithotripsy Status post myringotomy with insertion of tube History of tooth extraction History of esophageal dilatation Family History Other No family history of adverse response to anesthesia Social History Smoking Status: Former smoker Second Hand Exposure: No; Do You Dip or Chew Tobacco: No; Hx Alcohol Use: No Hx Substance Use: No Preferred Language: Arabic Communication Ability: Effective Visual Impairment: Limited Hearing Ability: Hard of Hearing Cigarette Book Maker Required: No Beliefs That Will Affect Care: Hinduism Hinduism Beliefs: Lutheran marital status: Single Current Living Situation: Alone Current Living 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 How many Children do You have: 0 Other Information That Helps Us Care for You: No other: Brother assists with care Feels Safe at Home: Yes Safety Concerns: Feels Safe At This Time Diet: regular during the past year weight has: remained stable Assistive Devices: Glasses and Wheelchair Review of Systems Constitutional: + fever; no chills Eyes: no problem reported Ear, Nose, Mouth, Throat: no problem reported Respiratory: no cough and no dyspnea Cardiovascular: no chest pain Gastrointestinal: no abdominal pain, no nausea and no vomiting Genitourinary: + problem reported (chronic UTIs) Musculoskeletal: + deformity and + muscle weakness; no ba ck pain Integumentary: no problem reported Neurologic: + localized weakness Psychiatric: no behavioral changes Hematologic / Lymphatic: + easy bleeding and + easy bruising Physical Exam Constitutional: WD/WN, vitals as above Eyes: PERRL, conjunctivae normal, anicteric sclerae ENMT: external ear and nose normal, oropharynx normal Neck: trachea midline Respiratory: normal respiratory effort, lungs clear to auscultation Cardiovascular: RRR, no murmur, no edema Gastrointestinal (Abdomen): Inspection/Auscultation: abdomen normal to inspection; abdomen not distended Percussion/Palpation: abdomen soft; abdomen nontender Musculoskeletal: Head/Neck/Chest: normocephalic and head atraumatic Extremities: + lower extremity abnormal to inspection and + limited ROM of lower extremity sacral decubitus clean and granulating, exposed sacral with likely chronic osteo, no abscess, no significant necrotic tissue Skin: no rashes, warm and dry Psychiatric: Orientation: alert and oriented x 3 Results & Data Vital Signs (Past 12 Hours) Vital Signs Temp Pulse Pulse Resp BP BP Pulse Ox 03/11/24 08:15 89/44 L 03/11/24 08:15 81 14 100 03/11/24 07:45 79 14 100 03/11/24 07:45 95/51 L 03/11/24 07:36 98/56 L 03/11/24 07:33 85 14 100 03/11/24 07:27 85 12 100 03/11/24 07:15 99/52 L 03/11/24 07:00 101/45 L 03/11/24 07:00 91 H 16 100 03/11/24 06:56 03/11/24 06:54 03/11/24 06:45 88 13 100 03/11/24 06:45 97/52 L 03/11/24 06:45 97/52 L 03/11/24 06:30 91 H 17 100 03/11/24 06:30 108/49 L 03/11/24 06:30 108/49 L 03/11/24 06:24 90 20 99 03/11/24 06:24 36.7 C 87 18 114/58 L 96 03/11/24 06:20 109/58 L 03/11/24 06:20 109/58 L 03/11/24 06:20 109/58 L 03/11/24 06:15 118/57 L 03/11/24 06:12 114/58 L 03/11/24 06:00 99/54 L 03/11/24 06:00 99/54 L 03/11/24 05:00 79 15 88/53 L 97 03/11/24 04:30 82 13 99/63 L 98 03/11/24 04:00 86 14 85/51 L 95 03/11/24 03:31 90 16 72/43 L 94 03/11/24 03:15 92 H 14 77/42 L 94 03/11/24 03:00 93 H 22 84/49 L 95 03/11/24 02:45 92 H 18 74/43 L 96 03/11/24 02:30 94 H 19 76/44 L 96 03/11/24 02:03 97 H 03/11/24 02:00 94 H 21 77/45 L 95 03/11/24 01:00 95 H 17 91/45 L 94 03/10/24 23:55 106 H 16 94/52 L 98 03/10/24 23:40 113 H 14 106/61 99 03/10/24 23:25 111 H 13 107/58 L 99 03/10/24 23:10 113 H 16 104/57 L 100 03/10/24 22:55 112 H 14 98 03/10/24 22:40 116 H 13 99 03/10/24 22:25 117 H 15 99 03/10/24 22:10 109 H 16 98 03/10/24 22:10 98 03/10/24 22:09 119 H 03/10/24 21:56 113 H 19 101/61 98 03/10/24 21:48 37.1 C 111 H 15 116/82 99 Pulse Ox O2 Del Method O2 Del Method 03/11/24 08:15 03/11/24 08:15 03/11/24 07:45 03/11/24 07:45 03/11/24 07:36 07/03/24 07:33 03/11/24 07:27 03/11/24 07:15 03/11/24 07:00 03/11/24 07:00 03/11/24 06:56 Room Air 03/11/24 06:54 100 Room Air 03/11/24 06:45 03/11/24 06:45 03/11/24 06:45 03/11/24 06:30 03/11/24 06:30 03/11/24 06:30 03/11/24 06:24 03/11/24 06:24 Room Air 03/11/24 06:20 03/11/24 06:20 03/11/24 06:20 03/11/24 06:15 03/11/24 06:12 03/11/24 06:00 03/11/24 06:00 03/11/24 05:00 Room Air 03/11/24 04:30 Room Air 03/11/24 04:00 Room Air 03/11/24 03:31 Room Air 03/11/24 03:15 Room Air 03/11/24 03:00 Room Air 03/11/24 02:45 03/11/24 02:30 Room Air 03/11/24 02:03 03/11/24 02:00 Room Air 03/11/24 01:00 Room Air 03/10/24 23:55 Room Air 03/10/24 23:40 Room Air 03/10/24 23:25 Room Air 03/10/24 23:10 03/10/24 22:55 Room Air 03/10/24 22:40 Room Air 03/10/24 22:25 Room Air 03/10/24 22:10 Room Air 03/10/24 22:10 Room Air 03/10/24 22:09 03/10/24 21:56 Room Air 03/10/24 21:48 Room Air
[2024-03-11] MEDS: CEFEPIME 2,000 MG in SYRINGE 0 ML IV SCH (09:46)
[2024-03-11] MEDS: oxyBUTYnin chloride 5 MG TAB PO SCH (09:49)
[2024-03-11] MEDS: metroNIDAZOLE 500 MG/100 ML BAG IV SCH (09:50)
[2024-03-11] MEDS: PANTOprazole 40 MG TAB PO SCH (09:50)
[2024-03-11] MEDS: PARoxetine HCL 20 MG TAB PO SCH (09:50)
[2024-03-11] MEDS: PLASMA-LYTE A 1,000 ML IV SCH (11:14)
[2024-03-11] MEDS: PIPER/TAZO 4.5g in D5W MINI-B 100 ML IV ONE (11:14)
--- NOTE | 2024-03-11 13:47 | Discharge Summary ---
Date of Service March 11, 2024 Admission HPI Per Admitting Provider History obtained from patient and records. Medical history significant for chronic diastolic heart failure (EF 56%, TTE 2023), paraplegia secondary to spina bifida, recurrent UTIs secondary to neurogenic bladder status post suprapubic catheter placement, staghorn calculi as per records, left hydronephrosis status post PCNL, history of colostomy, GERD, emphysematous gastritis as per records, chronic anemia (baseline hemoglobin of 9-10 ), chronic sacral decubitus wound, chronic right hip fracture (2022), anxiety/mood disorder, hx MRSA/VRE, history of C. difficile, medical noncompliance as per records, past tobacco abuse. Last confinement September 2023 for complicated UTI and emphysematous gastritis. Patient completed antibiotic course. 2 ER visits last month, more recent of which was last March 02 for blocked suprapubic catheter status post replacement at the ER. Patient subsequently left AGAINST MEDICAL ADVICE. Discharged on Bactrim course. Last week patient noted worsening of chronic right hip pain associated with fever chills and watery diarrhea. Minimal abdominal pain with nausea emesis as per patient. No chest pain or unusual SOB. Chronic sacral wound with increasing foul-smelling drainage over the last few months as per patient. Patient noted to have right femoral neck fracture subacute to chronic on outpatient pelvic x-ray last March 2023. Fall during transfer as per records. No operative intervention as per [facility] outpatient note from April 2023. Patient received daptomycin and cefepime at the ER. SBP currently 70s after almost 3 L IV fluid administered at the ER. Medical History as above Surgical History : Circumcision, colostomy to prevent pressure sores, lithotripsy, cystoscopy, myringotomy, ex lap, toe amputation, buttock skin flap surgery, hernia repair, cystostomy tube placement, vascular procedures Family History : Heart disease, Paget's disease, prostate cancer Personal/Social history : Past tobacco abuse, occasional EtOH intake, disabled Admission Exam Per Admitting Provider GENERAL: Slightly uncomfortable, chronically ill, no respiratory distress SKIN: Pallor, warm HEENT: Alopecia, pale palpebral conjunctivae, no ptosis, dry buccal mucosa NECK : Supple, no tenderness CHEST : CTA, no tenderness HEART : RRR, no obvious murmurs ABDOMEN: Some distention, suprapubic catheter and left-sided ostomy in place BACK : Ulcerated wound sacrum with bone exposure with foul-smelling drainage EXTREMITIES : Minimal LE swelling with chronic deformity, no LE tenderness NEUROLOGIC : Coherent, no facial asymmetry, MMTS BUE 4/5, BLE 0 Principal Diagnosis Septic shock Septic Right hip Sacral wound/ pressure ulcer stage IV Discharge Exam GENERAL: chronically ill appearing M in NAD SKIN: Pallor, warm HEENT: Alopecia, pale palpebral conjunctivae, no ptosis NECK : Supple, no tenderness CHEST : CTA, no tenderness HEART : RRR, no obvious murmurs ABDOMEN: minimal distention, suprapubic catheter and left-sided ostomy in place BACK : Ulcerated wound sacrum with bone exposure EXTREMITIES : Minimal LE swelling with chronic deformity, no LE tenderness NEUROLOGIC : awake, alert, able to answer simple questions appropriately, no facial asymmetry, moves BUE Discharge Data Allergies Allergy/AdvReac Type Severity Reaction Status Date / Time iodine Allergy Intermediate A Verified 03/11/24 01:22 TEEN-SKIN CONTACT BURNED THE SKIN-FELT LIKE ON FIRE adhesive Allergy Mild ADHESIVE Verified 03/11/24 01:22 TAPE RIPS SKIN APART clindamycin Allergy Mild RASH Verified 03/11/24 01:22 Iodinated Contrast Media Allergy Mild NAUSEA Verified 03/11/24 01:22 Penicillins Allergy Mild HIVES-ITCHING,HAS Verified 03/11/24 01:22 TOLERATED ANCEF IN PAST pineapple Allergy Mild "TONGUE Verified 03/11/24 01:22 WALKER AND CRACKS" vancomycin Allergy Mild hives Verified 03/11/24 01:22 aspirin AdvReac Mild GI Verified 03/11/24 01:22 SENSITIVITY Consultations 03/11/24 00:44 ED Decision to Admit Stat 03/11/24 05:34 Consult Orthopedic Surgery Routine 03/11/24 05:39 Consult General Surgery Routine 03/11/24 06:37 Consult Passenger Service Supervisor Routine 03/11/24 13:17 Burn CD for patient Stat Ordered Studies 03/10/24 22:09 CT abd pelvis wo con Stat FINDINGS: Lung bases: Mild left basilar atelectasis or scarring. ABDOMEN: Liver: Unremarkable. Gallbladder and bile ducts: Unremarkable. No calcified stones. No ductal dilation. Pancreas: Unremarkable. No ductal dilation. Spleen: Unremarkable. No splenomegaly. Adrenals: Unremarkable. No mass. Kidneys and ureters: Left percutaneous nephrostomy catheter appears in good position, unchanged. Mild left renal pelviectasis without significant hydronephrosis. Simple cyst inferior left kidney measuring 3. 7 cm is stable, and no further follow-up is recommended. Stomach and bowel: Left lower quadrant colostomy, unchanged. No bowel dilatation to suggest obstruction. No mucosal thickening. PELVIS: Appendix: No findings to suggest acute appendicitis. Bladder: See below. Reproductive: Unremarkable as visualized. ABDOMEN and PELVIS: Intraperitoneal space: Unremarkable. No free air. No significant fluid collection. Bones/joints: Partial ostial lysis and/or fracture of the proximal right femur, unchanged as well. Surrounding this, there is increased loculated fluid. Detail limited as no IV contrast was administered, however, findings may represent bursitis or septic joint. Suprapubic cystostomy in good position within urinary bladder. 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 Bilateral hip contraction deformities. Soft tissues: Chronic sacral decubitus ulcer with osteolysis of the lower sacrum and coccyx, characteristic for chronic osteomyelitis, unchanged. Old ventral hernia repair with anterior abdominal mesh, unchanged. Vasculature: Unremarkable. No abdominal aortic aneurysm. Lymph nodes: Unremarkable. No enlarged lymph nodes. IMPRESSION: 1. Partial osteolysis and/or fracture of the proximal right femur. Surrounding this, there is increased loculated fluid. Detail limited as no IV contrast was administered, however, findings may represent bursitis or septic joint. 2. Chronic sacral decubitus ulcer with osteolysis of the lower sacrum and coccyx, characteristic for chronic osteomyelitis, unchanged. 03/11/24 IR aspinj mjr jnt sh,hip,kn RT Routine 03/11/24 05:49 CT Abd and Pelvis [CT abd pelvis IV con only] Stat FINDINGS: Lower chest: Bibasilar atelectasis versus scarring is seen. Small pericardial effusion is seen. Liver: Unremarkable. No focal lesions are seen. Gallbladder and biliary tree: No calcified gallstones. Normal caliber wall. No intra- or extrahepatic biliary ductal dilation. Pancreas: Fatty replacement of the pancreas is seen. Spleen: Unremarkable. Adrenals: Right adrenal myelolipoma is seen. Kidneys and ureters: Bilateral renal cysts are seen. A left percutaneous nephrostomy is seen. Multiple stones are in the left mid ureter with associated hydroureter. Bladder: Suprapubic catheter is seen draining a bladder with thickened thorpe. Reproductive organs: Prostatic calcifications are seen which may represent prior hemorrhage or granulomatous disease. Bowel: The appendix is normal. There is postsurgical change of left lower quadrant colostomy. Lymph nodes Retroperitoneal: Unremarkable. Pelvic: Unremarkable. Mesenteric: Unremarkable. Peritoneum: Normal. Vessels: Unremarkable. Abdominal wall: Postsurgical changes are seen in the antrum of the stomach. Mild soft tissue edema is seen most prominently in the left abdominal wall. Bones: Redemonstration of chronic right femoral fracture. Soft tissue swelling, fluid collection, and bony erosions are unchanged from the prior exam. In particular, the periarticular fluid collection is overall similar to prior exam measuring 4.9 cm with prominent rim enhancement. Erosion is seen most prominently in the right iliac wing and possibly in the fragmented bone. Findings of bilateral hip dysplasia and spina bifida occulta again seen. In addition, there is again seen erosion/osteomyelitis is of the sacrum with sacral decubitus ulcer, soft tissue swelling and subcutaneous emphysema, however no drainable fluid collection is seen IMPRESSION: 1. Right hip rim-enhancing fluid collection is again seen with a small amount of bony erosion. Findings are stable from prior CT but new from exam of 09/26/2023 and likely represent osteomyelitis/septic arthritis. 2. Fragmentation, soft tissue swelling, and subcutaneous emphysema about the sacrum is new from exam of September as well, this likely represents osteomyelitis from a sacral decubitus ulcer. No drainable fluid collection is seen. 3. Left percutaneous nephrostomy with hydroureter and obstructing distal left sided stones. 4. Redemonstration of left lower quadrant colostomy and additional findings as above. 03/11/24 06:04 US point of care ultrasound Routine 03/11/24 09:58 IR aspinj mjr jnt sh,hip,kn RT Routine Hospital Course (1) Septic shock: Septic shock Multiple poss. sources: Septic right hip rule out osteomyelitis, history traumatic right femoral fracture (2022) poss. Infected chronic sacral wound possible osteomyelitis as per records Complicated UTI (urinary tract infection), hx recurrent UTIs secondary to neurogenic bladder secondary to spina bifida status post suprapubic catheter placement/hx staghorn calculi as per records/left hydronephrosis status post PCNL Diarrhea rule out recurrent C. difficile Pt admitted to ICU for vasopressor support - on Levophed Abx changed to zosyn, daptomycin CT abd/pelvis w/ IV contrast - IMPRESSION: 1. Right hip rim-enhancing fluid collection is again seen with a small amount of bony erosion. Findings are stable from prior CT but new from exam of 09/26/2023 and likely represent osteomyelitis/septic arthritis. 2. Fragmentation, soft tissue swelling, and subcutaneous emphysema about the sacrum is new from exam of September as well, this likely represents osteomyelitis from a sacral decubitus ulcer. No drainable fluid collection is seen. 3. Left percutaneous nephrostomy with hydroureter and obstructing distal left sided stones. 4. Redemonstration of left lower quadrant colostomy and additional findings as above. Follow blood cultx, urine cultx, sacrum/ coccyx cultx -> will likely need ID consult when cultx results available test for c. diff Orthopedics consult Re: Septic right hip (Case discussed with Dr. Page on admission , who initially requested for transfer to tertiary center due to patient complexity. Dr. Valdez of [facility] refused transfer request.) IR consulted and pt underwent R hip aspiration - 60 cc of fluid from R hip obtained containing pus -> confirming dg. of septic joint [facility] contacted again and updated - discussed also w/ Dr. Page, Dr. De Leon (ICU) - > pt to be transferred to tertiary center - [facility] for further care / orthopedic surgery General Surgery consult Re: poss. Infected chronic sacral decubitus wound Per surgery wound granulating well dressings per wound nurse/clinic ortho to consider sacral debridement of bony sacrum, soft tissues have no need for debridement sepsis likely from right hip, likely IR drainage to control sepsis no general surgical issues Wound care nurse consult Chronic conditions chronic diastolic heart failure, monitor fluid paraplegia secondary to spina bifida GERD/emphysematous gastritis as per records, stable on PPI chronic anemia (baseline hemoglobin of 9-10 ) anxiety/mood disorder, at baseline hx MRSA/VRE hx medical noncompliance as per records Subclinical hypothyroidism, Recheck TSH next month Functional disability past tobacco abuse. DVT prophylaxis SCDs Re: Possible procedure Full code Patient requests for brother to be given periodic updates regarding care. Mr. Juan Sommer, contact #[phone]. Total Time Total Time Spent Total Time Spent (In Minutes): 60 Discharge Plan Discharge Items Patient Disposition: Transfer Acute Care Hospital Reason For Visit: SEPTIC SHOCK Discharge Diagnosis: Septic shock Septic Right hip Sacral wound/ pressure ulcer stage IV Activity: Per Instructions section Non-emergency contact: Surgeon and Specialist Call non-emergency contact if: you have any medication questions and your symptoms worsen Follow-up/Referrals: Apolinar Herrera, DO [Primary Care Provider] - Diet: Other - See Diet Comment Diet Comment: NPO except for meds/ sips Addtl Attending Provider Instructions: Patient admitted with septic shock, found to have septic Right hip joint, also has significant sacral wound / pressure ulcer stage IV, hx of spina bifida with paraplegia, suprapubic catheter, nephrostomy tube, colostomy. Currently on IV antibiotics - zosyn and daptomycin, and requiring vasopressor support in ICU - levophed. Patient is to be transferred to tertiary care center - [facility] for further treatment/ orthopedic surgery for septic joint. Pending Studies at Discharge: Yes Studies:: blood cultx, urine cultx results Stand-Alone Forms: My [facility] Skilled Items Patient informed of condition?: Yes DNR: No Discharge Level of Care: Other Communicable Disease: No Discharge Prognosis: Other Lines: Peripheral IV Urinary Catheter: Yes Medications and DC Order Prescriptions: Continued magnesium oxide 400 mg magnesium capsule 400 mg PO QAM paroxetine HCl 20 mg tablet 20 mg PO QAM pantoprazole 40 mg tablet,delayed release (DR/EC) 40 mg PO [facility] oxybutynin chloride 5 mg tablet 5 mg PO [facility] polyethylene glycol 3350 [Miralax] 17 gram powder in packet 17 g PO UD PRN (Reason: Constipation) Discharge Orders: Discharge Order (Routine); Ordered 03/11/24 Ordered By: Harsh Garcia Admission Data Admit Date/Time: 03/11/24 05:33 Attending Provider: Harsh Garcia Admit Provider: Vernon Quinones Primary Care Provider: Apolinar Herrera Other Providers: Vernon Quinones; Lexa Page; Casey Graves; Juanito Elizabeth; Charlotte Hernandez; Ashwin Adair; Pavan Sanchez; Jia Luis; Shelia Zheng; Yaakov Vallejo Jr; Alyssa Obrien; Bennie Casillas; Nieves Sal; Charles Stovall
[2024-03-11 14:06] LABS: Appearance Synovial Fluid Turbid; Color Synovial Fluid Red; Mononuclear WBC Synovial 8.8 %; Polynuclear WBC Synovial 91.2 %; RBC Synovial Fluid Auto 361000 /uL; Source Synovial Fluid Right Hip; WBC Synovial Fluid Auto 119200 /ul (0-200)
--- NOTE | 2024-03-11 14:11 | Ultrasound Report ---
Ultrasound-guided right hip fluid collection aspiration INDICATION: Complex appearing right hip fluid collection; evaluate for infection PROCEDURE: Procedure and risks were explained. Informed consent was obtained. A final timeout was com pleted. The right leg/hip was prepped and draped in sterile fashion. 1% lidocaine was utilized for sk in anesthesia. Utilizing ultrasound guidance, a 5 [place] safety centesis catheter was advanced into the complex righ t hip fluid collection. Ultrasound images were obtained. Approximately 60 mL of ba-colored fluid w as aspirated and sent to lab for culture analysis. The catheter was removed and then applied. The pat ient tolerated the procedure well. IMPRESSION: Ultrasound-guided right hip fluid collection aspiration as above. Performed, dictated, and signed by Bennie Bergman PA-C; to be co-signed by Dr. Sridhar Mullins. Electronically signed by: Sridhar Mullins M.D. 03/11/2024 2:13 PM
--- OUTSIDE RECORDS SUMMARY | 2024-03-11 14:19 | External Medical Summary | Summary of Care ---
Author Name Unknown Organization [facility] Address [address] [place] [address] Phone [phone] Care Team Providers Care Food Service Attendant Name Role Phone Apolinar Herrera DO Primary Care Provider Reason for Visit * Reason Onset Date Comments [facility]: Maintenance 02/24/2024 Encounter Details Date Type Department Care Team (Late st Contact Info) Description 02/24/2024 Telephone [facility], [facility] [address] [place] [address] Cheryl Jones, RN [address] [place] [address] [facility]: Maintenance Allergies Active Allergy Reactions Criticality Noted Date [...] as of this encounter (statuses as of 03/09/2024) Medications Medication Sig Dispensed Refills Start Date End Date Status Polyethylene Glycol 3350 17 GM/SCOOP Oral PowderIndications:as needed Take by mouth. Indications: as needed Active Sodium Hypochlorite 0.25 % External SolutionIndications:Pr essure injury of right ischium, stage 4 (HCC) Apply topically to affected area daily. 473 mL 2 03/28/2023 Active Sodium Chloride Flush 0.9 % Intravenous Solution Flush catheter with one syringe (10 mL) every morning. 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 He will call pharmacy. 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 Dilation of the left renal pelvis without significant hydronephrosis. He has Urology follow-up November 12 at [facility]. Suprapubic catheter 11/01/2023 Last Assessment & Plan: Changed monthly by Urology. Nephrostomy status 11/01/2023 Last Assessment & Plan: Nephrostomy left side Ventral hernia 05/16/2022 Medical home patient encounter 05/16/2022 Pressure ulcer of ischial area, stage 4 03/10/20 20 Overview: Pressure ulcer of R ischium Last Assessment & Plan: Followed by wound clinic monthly Acquired absence of other right toe(s) 9 Spina bifida of lumbosacral region without hydro cephalus 05/01/2017 Wheelchair dependence 05/01/2017 Parastomal hernia 04/22/2015 Meniere's disease 10/19/2010 Neurogenic bladder 12/03/2006 Iron deficiency anemia 12/03/2006 Gastroesophageal reflux disease with esophagitis 12/03/2006 Colostomy status 11/05/2005 Last Assessment & Plan: Independent with care. Paraplegia 01/03/1999 Last Assessment & Plan: Lives in apartment. Independent with ADLs. Has a manual wheelchair in electric scooter. Has transfer board to get into bed. Washes up at sink. Reports he does not qualify for paid assistance/waiver in the home. His brother checks on him frequently and provides assistance and transportation as needed. CATHIE (generalized anxiety disorder) 01/03/1999 Last Assessment & Plan: Stable on paroxetine documented as of this encounter (statuses as of 03/09/2024) Resolved Problems Problem Noted Date Diagnosed Date Resolved Date Mild tricuspid regurgitation 12/04/2023 02/12/2024 Overview: Combo code - Aortic and tricuspid Ureteral stone 11/26/2023 12/04/2023 Spina bifida 10/24/2023 12/04/2023 Acute pyelonephritis 07/01/2023 023 Septic shock 06/25/2023 07/10/2023 Food insecurity 05/22/2021 08/22/2023 Overview: Per [facility] Protocol Renal calculi 03/24/2020 10/31/2023 Hx of sepsis 11/04/2017 09/21/2019 Sepsis 10/21/2017 11/04/2017 Parastomal hernia without ob struction or gangrene 11/01/2015 10/31/2023 Acute respiratory failure with hypoxia 04/25/2015 11/01/2015 [...] as of this encounter (statuses as of 03/09/2024) Immunizations Name Administration Dates Next Due COVID-19 mRNA, LNP-s, No Pre serve, 2-Dose Series (Instant API) 07/11/2021,12/23/2020,12/02/2020 Covid-19, Mrna, Lnp-s, Pf, B ivalent, 30 Mcg, IM, 12 yrs and above (Pfizer) 07/24/2022 PPD 07/11/2023 Pneumococcal Conjugate Vacci ne, 15-valent (Vaxneuvance) 07/20/2013 Pneumococcal Conjugate Vacci ne, 20-valent ([id number]) 03/26/2023,12/28/2022 Pneumococcal Polysaccharide PPV23 (Pneumovax) 12/12/2021,10/22/2016 RSV Vac., Bivalent, Perfusio n F, Pf,0.5 Ml (Abrysvo) 10/24/2023 Season Influenza, Quad, PF, Adjuvanted, 65+ Yrs, IM (FLUAD) 07/11/2021,06/30/2020 Seasonal Influenza, PF, 6 M & above, IM , (FluLaval or Fluzone) 06/18/2022 Seasonal Influenza, Quadriva lent Hd (Fluzone Hd) 06/04/2023 Seasonal Influenza, Quadriva lent, No Preserve, IM 06/04/2023,06/18/2022,07/11/2021,06/30,05/26/2015,06/06/2013,06/03/2012 ,07/25/2011,06/19/2010,05/20/2009 Seasonal Influenza, Split, I IV3, No Preserve, Inj 05/20/2009 Seasonal Influenza, Split, I IV3, With Preserve, Inj 06/04/2023,06/18/2022,07/11/2021,05/26,06/06/2013,06/03/2012,07/25/2011 ,06/19/2010 Seasonal Influenza, Trivalen t, Adjuvanted, 65+ yrs 07/11/2021 TD - Tetanus/Diptheria (ADULT) 06/16/2006 TDAP (age 10 and older)(Boostrix) 03/17/2017 TDAP, Age 7 and older, IM (Adacel) 06/03/2012 Varicella Vaccine (Chicken Pox) 11/18/2014 Varicella Zoster Vaccine (Adult) 11/18/2014 Zoster Vaccine [...] money to get more. Never true 09/05/2023 Childcare Answer Date Recorded Do you feel overwhelmed with taking care of a child, family member or friend? No 09/05/2023 Does your family need help f inding childcare? (Household - for ages 0-17 years) Not on file 09/05/2023 Clothing Answer Date Recorded Have you been unable to get clothing when it was really needed? No 09/05/2023 Is your family able to get c lothes or diapers when needed? (Household - for ages 0-17 years) Not on file 09/05/2023 Personal Safety Answer Date Recorded Do you feel unsafe or have concerns for your saf ety? No 09/05/2023 Do you have concerns for you r family's safety? (Household - for ages 0-17 years) Not on file 09/05/2023 Utilities Answer Date Recorded Do you have trouble paying y our heating, water, or electric bill? No 09/05/2023 Is your family able to pay t he heat, water, or electric bill? (Household - for ages 0-17 years) Not on file 09/05/2023 Does your family have access to good internet? (Household - for ages 0-17 years) Not on file 09/05/2023 Employment Status Answer Date Recorded Are you unemployed or without regular income? No 09/05/2023 Does the household have a re gular source of income? (Household - for ages 0-17 years) Not on file 09/05/2023 Social Connections Answer Date Recorded How often do you feel lonely or isolated from those around you? Sometimes 09/05/2023 Financial Resource Strain Answer Date R ecorded Do you have any trouble payi ng for your medications, or do you think you might in the future? No 09/05/2023 Does your family have troubl e paying for medicine? (Household - for ages 0-17 years) Not on file 09/05/2023 Transportation Needs Answer Date Record ed READ ONLY Do you have troubl e getting a ride to medical visits or work? Sometimes True 09/05/2023 Does your family have a hard time getting a ride to doctors visits? (Household - for ages 0-17 years) Not on file 09/05/2023 Has lack of transportation k ept you from medical appointments, meetings, work, or from getting things needed for daily living? Check all that apply. (Adult - for ages 18 years and over) Not on file 09/05/2023 Do you (or your family) have trouble finding or paying for a ride (transportation)? (Household - for ages 0-17 years) Not on file 09/05/2023 Housing Stability Answer Date Recorded Do you currently live in a s helter or have no steady place to sleep at night? No 09/05/2023 READ ONLY Do you think you a re at risk of becoming homeless? No 09/05/2023 Does your family worry about paying for your home or becoming homeless? (Household - for ages 0-17 years) Not on file 1 11/06/2022 Are you homeless or worried that you might be in the future? (Adult - for ages 18 years and over) Not on file Are you (or your family) dena eless or worried that you might be in the future? (Household - for ages 0-17 years) Not on file Food Insecurity Answer Date Recorded Do you need food for this week? No 09/05/2023 Are you able to get enough f ood for your family? (Household - for ages 0-17 years) Not on file 09/05/2023 Does your family need food t his week? (Household - for ages 0-17 years) Not on file 09/05/2023 Do you always have enough fo od for your family? (Household - for ages 0-17 years) Not on file 09/05/2023 Sex and Gender Information Value Date [...] encounter Miscellaneous Notes * Telephone Encounter - Apolinar Herrera DO - 03/09/2024 3:15 PM EDT Pend for signature please * Telephone Encounter - Lawanda Gordon MED CHANTAL - 03/05/2024 7:59 AM EDT 5in x 9 in abdominal pads for wound care Please order 45 for a 30 day supply. Also colostomy bags and wafers * Telephone Encounter - Apolinar Herrera DO - 03/03/2024 11:55 AM EDT Unsure what supplies patient needs? * Telephone Encounter - Romelia Felix LPN - 02/27/2024 11:30 AM EDT Call to [email or web address] was told they have not supplied pt with any supplies since May of 2023 A new order for requested supplies will need to be placed and signed by a provider Then it can be uploaded to [employer] [facility] to find a DME company * Telephone Encounter - Cheryl Jones RN - 02/27/2024 7:56 AM EDT Does this mean the order needs signed by the provider first? Please follow up and check status with [facility] to see if supplies were sent out or if new order needs sent. Thank you. * Telephone Encounter - Romelia Felix LPN - 02/24/2024 4:39 PM EDT Call to [employer] [facility] they did not receive any new DME order for colostomy bags and wafers I was informed pt has DME supplier for same [employer] [phone]. Call to DME supply company closed at time of call. Reviewed DME order from 02/20 has multiple items listed 10 cc saline syringes for flushing cath daily Kerlix gauze for wound Colostomy bags and wafers DME order electronically signed by a ROPER OPERATOR no NPI can not submit to [employer] [facility] * Telephone Encounter - Cheryl Jones RN - 02/24/2024 3:01 PM EDT Pt in need of 5in x 9 in abdominal pads for wound care Please order 45 for a 30 day supply. Also has not received his colostomy bags and wafers yet - intake can you please check into this? Thank you. documented in this encounter Plan of Treatment Upcoming Encounters Date Type Department Care Team (Latest Contact Info) Description 03/17/2024 2:00 PM EDT Nurse Only Urology, [facility] [address] [place] [address] Lorna Nurse Urology [address] [facility] [place] [address] 03/19/2024 4:00 PM EDT Home Visit [facility], [facility] [address] [place] [address] Cheryl Jones RN [address] [place] [address] 04/01/2024 10:30 AM EDT Telemedicine [facility], [facility] [address] [place] [place] [address] Jes Rodriguez CRNP [address] [place] [address] Juhi Dotson, [facility] Laboratory Assistant [address] [place] [address] 04/02/2024 7:45 AM EDT Hospital Encounter [facility], OPER[facility] [address] [facility] [place] [phone] Joslyn Gonsalez MD [address] [facility] [address] 04/02/2024 7:45 AM EDT - 04/02/2024 11:44 AM EDT Surgery [place] [facility]PER[facility] [address] [place] [phone] Joslyn Gonsalez MD [address] [place] [address] PERCUTANEOUS NEPHROSTOLITHOTOMY OVER 2CM 04/07/2024 11:30 AM EDT Scheduled Telephone [facility], [place] [address] [facility] [place] [address] Juany Hughes RDN [address] [facility] [place] [address] 04/10/2024 12:45 PM EDT Telemedicine General Surgery, [address], [place] [phone] Neno Crum MD [address] [place] [address] 04/10/2024 2:30 PM EDT Office Visit Danica Holly [address] [place] [address] Peterson Graves MD [address] [place] [address] 04/28/2024 10:20 AM EDT [facility] [address] [facility] [place] [address] June Maria CRNP [address] [facility] [place] [address] 08/18/2024 10:00 AM EST Office Visit [facility] [address] [facility] [place] [address] Apolin[facility] Herrera DO [facility] [place] [address] 12/07/2024 10:30 AM EDT [facility] [address] [place] [address] Carolann Gomez PA-C [address] [place] [address] 12/08/2024 11:30 AM EDT Office Visit Urology, [facility] [address] [place] [address] Peterson Graves MD [address] [place] [address] Scheduled Procedures Name Priority Associated Diagnoses Date/Ti me PERCUTANEOUS NEPHROSTOLITHOT KAROLINA OVER 2CM Ureteral stone 04/02/2024 7:45 AM EDT CYSTOURETHROSCOPY URETEROSCO PY WITH LITHOTRIPSY AND STENT INSERTION Ureteral stone 04/02/2024 7:45 AM EDT Health Maintenance Due Date Last Done Comments Fecal Occult Blood Test 1998 Sigmoidoscopy 1998 COVID-19 Vaccine ( season) 2023 07/24/2022, 07/11/2021, 12/23/2020, Additional history exists Influenza Vaccine (FLU shot) (#1) 2024 06/04/2023, 06/04/2023, 06/04/2023, Additional history exists Cologuard 05/14/2024 05/14/2021, 04/11, 05/08/2021, Additional history exists Depression Screening 09/05/2024 09/05/2023 DTaP,Tdap,and Td Vaccines (3 - Td or Tdap) 03/17/2027 03/17/2017, 06/03/2012, 06/16/2006 Lipid Panel 11/11/2028 11/12/2023, 06/10, 05/01/2017, Additional history exists Colonoscopy 01/13/2034 01/14/2024, 05/0 03/2024, 09/13/2022, Additional history exists Colorectal Cancer Screening 01/13/2034 Zoster Vaccines Completed 07/21/2021, 04/10, 11/18/2014 Pneumococcal Vaccine: 65+ Years Completed 03/26/2023, 12/28/2022, 12/12/2021, Additional history exists AAA Screening Completed 09/10/2023, 06/10, 06/04/2023, Additional history exists GARDASIL-HPV IMMUNIZATION SERIES Aged Out No longer eligible based on patient's age to complete this topic Hepatitis B Aged Out No longer eligi ble based on patient's age to complete this topic MENINGOCOCCAL (MENACTRA/MENVEO) Aged Out No longer eligible based on patient's age to complete this topic documented as of this encounter Medical Devices Implanted Type Area Heat Seal Operator Device Identifier Shelf Expiration Date Model / Serial / Lot Quinton Square 30cm X 30cm - [id number] Implanted:Qty : 1 on 04/21/2015 by Neno Crum MD [place] [facility] N/A: Abdomen [employer] 01/07/2020 [id number] / / [id number] Xenmatrix Surgical Graft Implanted:Qty : 1 on 05/15/2022 by Neno Crum MD at [place] [facility] Left: Abdomen 11/06/2022 [id number] / / [id number] Description:15 cm x 20 cm Mesh Capsure Fixation 30 - [id number] Implanted:Qty : 1 on 05/15/2022 by Neno Crum MD at [place] [facility] CR BARD : DAVOL 08/06/2022 [id number] / / Cath Pwr Picc Solo Inj 4f - [id number] Implanted:Qty : 1 on 07/04/[address] [facility] CR BARD : [employer] [id number] 11/06/2024 [id number] / / [id number] Cath Drain Rashad Varghese 12f - [id number] Implanted:Qty : 1 on 09/12/2023 by Chalino Walker MD at OR [facility] COOK : [employer] [id number] 01/23/2026 [id number] / / [id number] documented as of this encounter Advance Directives * Full Code (Latest Code Status on File) Date Activated Date Inactivated Comments 06/25/2023 2:51 PM 07/10/2023 6:07 PM This order reflects the patients wishes and were consensually agreed upon. Question Answer Comments Discussion of Advance Directives occurred with: Patient * Full Code Date Activated Date Inactivated Comments 05/15/2022 6:08 PM 06/01/2022 2:30 PM Question Answer Comments Discussion of Advance Direct lincoln occurred with: Not Discussed due to patient's condition * Full Code Date Activated Date Inactivated Comments 05/15/2022 10:27 AM 05/15/2022 6:08 PM Question Answer Comments Discussion of Advance Direct lincoln occurred with: Not Discussed due to patient's condition * Full Code Date Activated Date Inactivated Comments 11/08/2021 1:23 PM 11/08/2021 8:45 PM This order ref lects the patients wishes and were consensually agreed upon. * Full Code Date Activated Date Inactivated Comments 11/08/2021 10:31 AM 11/08/2021 1:23 PM This order re flects the patients wishes and were consensually agreed upon. Healthcare Agents on File Name Relationship Healthcare Agent Relationship Communication Santos Sommer [facility] Re presentative (appointed verbally by patient or by statute hierarchy) [email or web address] Care Teams Food Service Attendant Relationship Specialty Start Date End Date Apolinar Herrera DO [facility] [place] [address] PCP - General Family Medicine 03/27/18 documented as of this encounter
--- OUTSIDE RECORDS SUMMARY | 2024-03-11 14:19 | External Medical Summary | Summary of Care ---
Author Name Unknown Organization [facility] Address [address] [place] [address] Phone [phone] Care Team Providers Care Manager Strategic Alliances Name Role Phone Apolinar Herrera DO Primary Care Provider Reason for Visit * Reason Onset Date Comments Medical Nutrition Therapy 03/05/2024 Encounter Details Date Type Department Care Team (Latest Contact Info) Description 03/05/2024 3:30 PM EDT Scheduled Telephone [facility], [facility] [address] [facility] [place] [address] Juany Hughes, PRATIKN [address] [facility] [place] [address] Pressure injury of right ischium, stage 4 ([facility])* Allergies Active Allergy Reactions Criticality Noted Date [...] as of this encounter (statuses as of 03/05/2024) Medications Medication Sig Dispensed Refills Start Date [...] every morning. 300 mL 3 08/08/2023 Active Acetaminophen 500 MG Oral Tablet (Tylenol Extra Strength) Take 1 Tablet by mouth every 6 hours as needed for Pain, Moderate. 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 He will call pharmacy. Advised after completing [...] He has Urology follow-up November 12 at [facility]. Suprapubic catheter 11/01/2023 Last Assessment & Plan: [...] as of this encounter (statuses as of 03/05/2024) Resolved Problems Problem Noted Date Diagnosed Date [...] as of this encounter (statuses as of 03/05/2024) Immunizations Name Administration Dates Next Due COVID-19 mRNA, LNP-s, No Pre serve, 2-Dose Series (PubCoder) 07/11/2021,12/23/2020,12/02/2020 Covid-19, Mrna, Lnp-s, Pf, B ivalent, 30 Mcg, IM, 12 yrs and above (Pfizer) 07/24/2022 PPD 07/11/2023 Pneumococcal Conjugate Vacci ne, 15-valent (Vaxneuvance) 07/20/2013 Pneumococcal Conjugate Vacci ne, 20-valent ([id number]) 03/26/2023,12/28/2022 Pneumococcal Polysaccharide PPV23 (Pneumovax) 12/12/2021,10/22/2016 RSV [...] encounter Miscellaneous Notes * Telephone Encounter - Juany Hughes RDN - 03/05/2024 2:18 PM EDT NUTRITION PROGRESS NOTE - [facility] AT HOME TELEPHONIC [facility] Patient Phone Numbers: [phone] (Home Phone) Call placed to pt as follow-up from initial nutrition assessment from 02/16/27. Patient denies any issues related to diet information previously provided. Describes typical meal pattern/po intake as indicated below: very limited info given Breakfast: 2 slices of toast with butter and jelly/ or nothing Snacks: nothing Lunch: take out foods/deli sandwich with crackers/leftovers Snacks: nothing Dinner: "I don't know; a piece of meat easy for me to chew, potatoes, and maybe a fruit" (Brother continues to provide some meals) Snacks: pudding/ice cream/cheese&crackers Drinks: water/coffee Restaurant meals: once a week Alcohol: At least once a month Tobacco Use: No Patient continues to live alone Patient's Brother has been assisting with care/food shopping/cooking of meals/transportation Since last call, PO intake and appetite "are doing pretty good" (provided encouragement) Since last call, chronic Stage IV sacral wound remains ("it just won't heal") Reinforced the importance of incorporating more protein rich foods in all meals/snacks to aid in wound healing and for skin health (reviewed nutritious examples/previously sent info) Patient continues to attend monthly wound clinic visits for treatment (nursing following) Continues taking Vitamin C and Zinc to aid in wound healing per Patient Reiterated the nutrition/healing benefits of oral nutrition supplements specifically designed for wound healing (Jamin or Prostat, for example) or other suggestions (Ensure, Boost, [place] Instant Breakfast Drink), but Patient declined again this call Again, this dietitian offered home-delivered meals ("Meals on Wheels" or "Mom's Meals") to supplement daily meal plan, but Patient again declined Colostomy is active with no difficulties or issues reported/manages it himself Patient is very aware of what foods he can/cannot tolerate with colostomy or foods which increase stool output (declined info) No food insecurity reported this call Limited interaction this call Food allergies and/or food intolerances: Pineapple Most recent H/H lab work remains low (see below) Encouraged more iron rich foods in all meals/snacks to improve H/H lab work Discussed healthy options Info sent Latest Reference Range & Units 09/10/23 18:40 02/13/24 12:28 02/25/24 11:48 HGB 14.0 - 16.8 g/dL 11.6 (L) 9.4 (L) 10.4 (L) HCT 40.0 - 48.4 % 39.4 (L) 31.3 (L) 33.2 (L) (L): Data is abnormally low Most recent Potassium lab work now WNL (see below) Latest Reference Range & Units 02/13/24 12:28 02/25/24 11:48 Potassium 3.5 - 5.1 mmol/L 2.7 (L) 3.6 (L): Data is abnormally low Patient denies any issues related to changes in wt. Wt Readings from Last 5 Encounters: 02/13/24 54.2 kg (119 lb 6.4 oz) 01/14/24 73.5 kg (162 lb) 01/03/24 73.5 kg (162 lb 0.6 oz) 12/13/23 73.5 kg (162 lb) 09/12/23 73.5 kg (162 lb) Requested to nursing to obtain new update weight due to above discrepancy from 01/30-03/02 Previous Nutrition Goals: 1) Consume 3 meals/day plus HS snack of nutritious, low sodium, protein/calorie/iron rich foods (reiterated foods to avoid/consume/suggested healthy choices)--in progress 2) Consume 1 fruit at breakfast/lunch, and 1 vegetable at dinner (My Plate Method reviewed)--in progress 3) Consume 2-3 bottles of water daily (16.9 oz)--in progress New Nutrition Goal From Last Call: 1) Include more Potassium rich foods to improve Potassium lab work (nutritious options discussed/sent info)--meeting/most recent Potassium lab work now WNL (see above) Reinforced nutrition goals. Encouraged continued progress towards goals Follow up as scheduled. Encouraged pt to contact [facility] at [phone] for any non-emergent changes/concerns. Juany Hughes MS, RDN, LDN Clinical Dietitian [facility] 03/05/2024 2:18 PM documented in this encounter Plan of Treatment Upcoming Encounters Date Type Department Care Team (Latest Contact Info) Description 03/17/2024 2:00 PM EDT Nurse Only Urology, [place] [address] [facility] [place] [address] [place], Nurse Urology [address] [facility] [address] 03/19/2024 4:00 PM EDT Home Visit [facility], [address] [place] [address] Cheryl Jones RN [address] [place] [address] 04/01/2024 10:30 AM EDT Telemedicine [facility], [facility] [address] [facility] [place] [address] Jes Rodriguez CRNP [address] [place] [address] Juhi Dotson, Community [facility] Hydrostatic Tester [address] [place], [place] [id number] 04/02/2024 7:45 AM EDT Hospital Encounter OR [facility], OPERATING ROOM [facility], [facility] [address] [place] [address] Joslyn Gonsalez MD [address] [place], [place] [id number] 04/02/2024 7:45 AM EDT - 04/02/2024 11:44 AM EDT Surgery OR C, OPERATING ROOM [facility], [facility] [address] [place] [phone] Joslyn Gonsalez MD [address] [place], [place] [id number] PERCUTANEOUS NEPHROSTOLITHOTOMY OVER 2CM 04/07/2024 11:30 AM EDT Scheduled Telephone [facility], [facility] [address] [facility] [place] [address] Juany Hughes RDN [address] [facility] [place] [address] 04/10/2024 12:45 PM EDT Telemedicine General Surgery, [address], [place] [address] Neno Crum MD [address] [place] [address] 04/10/2024 2:30 PM EDT Office Visit Urology Ruba Danica Serna [address] [facility] [address] [place] [address] Peterson Graves MD 27 [place] [address] 04/28/2024 10:20 AM EDT Office Visit [facility] [address] [place] [address] June Maria CRNP [address] [place] [address] 08/18/2024 10:00 AM EST Office Visit [facility] [address] [facility] [place] [address] Apolinar Herrera DO [address] [place] [address] 12/07/2024 10:30 AM EDT [facility] [address] [place] [address] Carolann Gomez PA-C [address] [place] [address] 12/08/2024 11:30 AM EDT Office Visit Urology, [facility] [address] [facility] [place] [address] Peterson Graves MD [address] [place] [address] Scheduled Procedures Name Priority Associated Diagnoses Date/Ti dc PERCUTANEOUS NEPHROSTOLITHOT KAROLINA OVER 2CM Ureteral stone 04/02/2024 7:45 AM EDT CYSTOURETHROSCOPY URETEROSCO PY WITH LITHOTRIPSY AND STENT INSERTION Ureteral stone 04/02/2024 7:45 AM EDT Health Maintenance Due Date Last Done Comments Fecal Occult Blood Test 1998 Sigmoidoscopy 1998 COVID-19 Vaccine ( season) 2023 07/24/2022, 07/11/2021, 12/23/2020, Additional history exists Cologuard 05/14/2024 05/14/2021, 04/11, 05/08/2021, Additional history exists Depression Screening 09/05/2024 09/05/2023 DTaP,Tdap,and Td Vaccines (3 - Td or Tdap) 03/17/2027 03/17/2017, 06/03/2012, 06/16/2006 Lipid Panel 11/11/2028 11/12/2023, 06/10, 05/01/2017, Additional history exists Colonoscopy 01/13/2034 01/14/2024, 03/2024, 09/13/2022, Additional history exists Colorectal Cancer Screening 01/13/2034 Zoster Vaccines Completed 07/21/2021, 04/10, 11/18/2014 Pneumococcal Vaccine: 65+ Years Completed 03/26/2023, 12/28/2022, 12/12/2021, Additional history exists Influenza Vaccine (FLU shot) Completed , 06/04/2023, 06/04/2023, Additional history exists AAA Screening Completed 09/10/2023, [...] this encounter Medical Devices Implanted Type Area Mixed Crop Farmer Device Identifier Shelf Expiration Date Model / Serial / Lot [facility]our [facility] Square 30cm X 30cm - [id number] Implanted:Qty : 1 on 04/21/2015 by Neno Crum MD at OR [facility] N/A: Abdomen [employer] 01/07/2020 [id number] / / [id number] Xenmatrix Surgical Graft Implanted:Qty : 1 on 05/15/2022 by Neno Crum MD at OR [facility] Left: Abdomen 11/06/2022 [id number] / / [id number] Description:15 cm x 20 cm Mesh Capsure Fixation 30 - [id number] Implanted:Qty : 1 on 05/15/2022 by Neno Crum MD at OR [facility] CR BARD : DAVOL 08/06/2022 [id number] / / Cath Pwr Picc Solo Inj 4f - [id number] Implanted:Qty : 1 on 07/04/2023 at [facility] CR BARD : [employer] [id number] 11/06/2024 [id number] / / [id number] Cath Drain Rashad Varghese 12f - [id number] Implanted:Qty : 1 on 09/12/2023 by Chalino Walker MD at OR [facility] COOK : V[employer]ULAR INC [id number] 01/23/2026 [id number] / / [id number] documented as of this encounter Visit Diagnoses Diagnosis Pressure injury of right ischium, stage 4 (HCC)- Primary Ureteral stone Calculus of ureter documented in this encounter Advance Directives * Full Code [...] Relationship Healthcare Agent Relationship Communication Santos Sommer [facility] Care Re presentative (appointed verbally by patient or by statute hierarchy) [email or web address] Care Teams Manager Strategic Alliances Relationship Specialty Start Date End Date Apolinar Herrera DO [address] [place] [address] PCP - General Family Medicine 03/27/18 documented as of this encounter
--- OUTSIDE RECORDS SUMMARY | 2024-03-11 14:20 | External Medical Summary | Summary of Care ---
Author Name Unknown Organization [facility] Address [address] [place] [address] Phone [phone] Care Team Providers Care Cooking Casing And Drying Supervisor Name Role Phone Apolinar Herrera DO Primary Care Provider Reason for Visit * Reason Onset Date Comments [facility]: Maintenance 02/24/2024 Encounter Details Date Type Department Care Team (Late st Contact Info) Description 02/24/2024 Telephone [facility], [facility] [address] [place] [address] Cheryl Jones, RN [address] [place] [address] [facility]: Maintenance Allergies Active Allergy [...] Plan: Rx sent but 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 He will call pharmacy. Advised after completing [...] He has Urology follow-up November 12 at [facility]. Suprapubic catheter 11/01/2023 Last Assessment & Plan: [...] mRNA, LNP-s, No Pre serve, 2-Dose Series ([employer] [place]) 07/11/2021,12/23/2020,12/02/2020 Covid-19, Mrna, Lnp-s, Pf, B ivalent, 30 Mcg, IM, 12 yrs and above (Pfizer) 07/24/2022 PPD 07/11/2023 Pneumococcal Conjugate Vacci ne, 15-valent (Vaxneuvance) 07/20/2013 Pneumococcal Conjugate Vacci ne, 20-valent ([id number]) 03/26/2023,12/28/2022 Pneumococcal Polysaccharide PPV23 (Pneumovax) 12/12/2021,10/22/2016 RSV [...] encounter Miscellaneous Notes * Telephone Encounter - Lawanda Gordon MED [...] - 02/27/2024 11:30 AM EDT Call to [facility] was told they have not supplied pt with any supplies since May of 2023 A new order for requested supplies will need to be placed and signed by a provider Then it can be uploaded to [facility] to find a DME company * Telephone Encounter - Cheryl Jones RN - 02/27/2024 7:56 AM EDT Does this mean the order needs signed by the provider first? Please follow up and check status with [facility] to see if supplies were sent out or if new order needs sent. Thank you. * Telephone Encounter - Romelia Felix LPN - 02/24/2024 4:39 PM EDT Call to [facility] they did not receive any new DME order for colostomy bags and wafers I was informed pt has DME supplier for same [employer] supply [phone]. Call to DME supply company closed at time of call. Reviewed DME order from 02/20 has multiple items listed 10 cc saline syringes for flushing cath daily Kerlix gauze for wound Colostomy bags and wafers DME order electronically signed by a RESEARCH RN SPEC no NPI can not submit to [facility] * Telephone Encounter - Chreyl Jones RN - 02/24/2024 3:01 PM EDT [...] PM EDT Scheduled Telephone [facility], [facility] [address] [facility] [place] [address] Juany Hughes, RDN [address] [facility] [place] [address] 03/17/2024 2:00 PM EDT Nurse Only Urology, [facility] [address] [place] [address] [facility], Nurse Urology [address] [place] [address] 03/19/2024 4:00 PM EDT Home Visit [facility], [facility] [address] [place] [address] Cheryl Jones RN [address] [place] [address] 04/01/2024 10:30 AM EDT Telemedicine [facility], [facility] [address] [place] [address] Jes Rodriguez CRNP [address] [place] [address] Juhi Dotson, [facility] [place] [address] [place] [address] 04/02/2024 7:45 AM EDT Hospital Encounter [facility], OPERATING ROOM [facility], [facility] [address] [place] [phone] Joslyn Gonsalez MD [address] [place] [address] 04/02/2024 7:45 AM EDT - 04/02/2024 11:44 AM EDT Surgery [facility], OPERATING ROOM [facility] [address] [place] [address] Joslyn Gonsalez MD [address] [place] [address] PERCUTANEOUS NEPHROSTOLITHOTOMY OVER 2CM 04/10/2024 12:45 PM EDT Telemedicine General Surgery, [address] [place] [address] Neno Crum MD [address] [place] [address] 04/10/2024 2:30 PM EDT Office Visit Urology Danica Holman [address] [facility] [address] [place] [address] Peterson Graves MD [address] [place] [id number] 04/28/2024 10:20 AM EDT Office Visit [facility] [address] [place] [address] June Maria CRNP 132 [place] [address] 08/18/2024 10:00 AM EST Office Visit [facility] [address] [place] [address] Apolinar Herrera DO [address] [facility] [place] [address] 12/07/2024 10:30 AM EDT [facility] [address] [place] [address] Carolann Gomez PA-C [address] [place] [address] 12/08/2024 11:30 AM EDT Office Visit Urology, [facility] 132 [place] [address] Peterson Graves MD [address] [place] [address] Scheduled Procedures Name Priority Associated Diagnoses Date/Ti [...] 05/01/2017, Additional history exists Colonoscopy 01/13/2034 01/14/2024, 050 03/2024, 09/13/2022, Additional history exists Colorectal Cancer [...] this encounter Medical Devices Implanted Type Area Diver Assistant Device Identifier Shelf Expiration Date Model / Serial / Lot Vitamesh Square 30cm X 30cm - [id number] Implanted:Qty : 1 on 04/21/2015 by Neno Crum MD at [place] [facility] N/A: Abdomen [employer] 01/07/2020 [id number] / / [id number] Xenmatrix Surgical Graft Implanted:Qty : 1 on 05/15/2022 by Neno Crum MD at [place] [facility] Left: Abdomen 11/06/2022 [id number] / / [id number] Description:15 cm x 20 cm Mesh Capsure Fixation 30 - [id number] Implanted:Qty : 1 on 05/15/2022 by Neno Crum MD at OR [facility] CR BARD : DAVOL 08/06/2022 [id number] / / Cath Pwr Picc Solo Inj 4f - [id number] Implanted:Qty : 1 on 07/04/2023 at [facility] CR BARD : [employer] [id number] 11/06/2024 [id number] / / [id number] Cath Drain Rashad Varghese 12f - [id number] Implanted:Qty : 1 on 09/12/2023 by Chalino Walker MD at OR [facility] COOK : VASCULAR INC [id number] 01/23/2026 [id number] / / [id number] documented as of this encounter Advance Directives [...] Relationship Healthcare Agent Relationship Communication Santos Sommer [facility] Care Re presentative (appointed verbally by patient or by statute hierarchy) [email or web address] Care Teams Cooking Casing And Drying Supervisor Relationship Specialty Start Date End Date Apolinar Herrera DO [address] [place] [address] PCP - General Family Medicine 03/27/18 documented as of this encounter
--- OUTSIDE RECORDS SUMMARY | 2024-03-11 14:20 | External Medical Summary | Summary of Care ---
Author Name Unknown Organization [facility] Address [address] [place] [address] Phone [phone] Care Team Providers Care Office Executive Name Role Phone Apolinar Herrera DO Primary Care Provider Reason for Visit * Reason Onset Date Comments [facility]: Maintenance 03/02/2024 Encounter Details Date Type Department Care Team (Late st Contact Info) Description 03/02/2024 Telephone [facility], [facility] [address] [facility] [place] [address] [facility], Nurse [facility] [address] [facility] [place] [address] [facility]: Maintenance Allergies Active Allergy [...] as of this encounter (statuses as of 03/03/2024) Medications Medication Sig Dispensed Refills Start Date [...] as of this encounter (statuses as of 03/03/2024) Active Problems Problem Noted Date Diagnosed Date Vitamin D deficiency 12/29/2023 Last Assessment & Plan: Rx sent but he did not picker tender. He will call pharmacy. Advised after completing [...] He has Urology follow-up November 12 at [place]. Suprapubic catheter 11/01/2023 Last Assessment & Plan: [...] as of this encounter (statuses as of 03/03/2024) Resolved Problems Problem Noted Date Diagnosed Date [...] as of this encounter (statuses as of 03/03/2024) Immunizations Name Administration Dates Next Due COVID-19 mRNA, LNP-s, No Pre serve, 2-Dose Series (Pfizer) 07/11/2021,12/23/2020,12/02/2020 Covid-19, Mrna, Lnp-s, Pf, B ivalent, 30 Mcg, IM, 12 yrs and above (Pfizer) 07/24/2022 PPD 07/11/2023 Pneumococcal Conjugate Vacci ne, 15-valent (Vaxneuvance) 07/20/2013 Pneumococcal Conjugate Vacci ne, 20-valent ([id number]) 03/26/2023,12/28/2022 Pneumococcal Polysaccharide PPV23 (Pneumovax) 12/12/2021,10/22/2016 RSV [...] encounter Miscellaneous Notes * Telephone Encounter - Rowena Chatterjee RN - 03/03/2024 3:03 PM EDT Wound care supplies order uploaded to the [employer] portal * Addendum Note - Jes Rodriguez CRNP - 03/03/2024 2:21 PM EDTAddended by: JES RODRIGUEZ on: 03/03/2024 02:21 PM Modules accepted: Orders * Telephone Encounter - Jes Rodriguez CRNP - 03/03/2024 2:19 PM EDT I placed the orders for the DME requested. Saw Plastic Surgery 01/15/2024 for consult for surgical repair. It was recommended he continued to follow-up with Wound Care team and a referral was placed.He needs to ensure he follows up with this. JET LANGSTON scheduling--please fax DME order * Telephone Encounter - Rowena Chatterjee RN - 03/03/2024 1:57 PM EDT PC to pt for 2nd attempt to reach pt. Spoke to the pt regarding wound care supplies. Pt states that he is no longer going to the wound clinic. Dc from would clinic about 4-6 weeks ago. * Telephone Encounter - Rowena Chatterjee RN - 03/02/2024 2:47 PM EDT Call placed to the pt to assess it pt is still active with [facility]. No answer. LMOM for callback. * Telephone Encounter - Rowena Chatterjee RN - 03/02/2024 11:00 AM EDT PC from pt to request order for medical supplies. Pt requesting 8x10 abdominal pads for wound care. Needs 45 for a 30 day supply Pt also 4x4 gauze pads as well. Will send message to provider for request for orders documented in this encounter Plan of Treatment Upcoming Encounters Date Type Department Care Team (Latest Contact Info) Description 03/05/2024 3:30 PM EDT Scheduled Telephone [facility], [facility] [address] [facility] [address] Juany Hughes RDN [address] [facility] [place] [address] 03/17/2024 2:00 PM EDT Nurse Only Urology, [place] [address] [place] [facility] [place] [address] [place] Nurse Urology [address] [place] [place] [address] 03/19/2024 4:00 PM EDT Home Visit [facility], [facility] 132 [place] [address] Cheryl Jones RN [address] [place] [address] 04/01/2024 10:30 AM EDT Telemedicine [facility], [facility] [address] [place] [address] Jes Rodriguez CRNP [address] [place] [address] Juhi Dotson, [facility] Plate Glass Installer [address] [place] [address] 04/02/2024 7:45 AM EDT Hospital Encounter [facility], OPERATING ROOM [facility], LACY FREED [address] [facility] [place] [phone] Joslyn Gonsalez MD [address] [place] [address] 04/02/2024 7:45 AM EDT - 04/02/2024 11:44 AM EDT Surgery [facility] [address] [place] [facility] [place] [phone] Joslyn Gonsalez MD [address] [place] [address] PERCUTANEOUS NEPHROSTOLITHOTOMY OVER 2CM 04/10/2024 12:45 PM EDT Telemedicine General Surgery, [address] [address] Neno Crum MD [address] [place] [address] 04/10/2024 2:30 PM EDT Office Visit Urology [place] [address] [address] [place] [address] Peterson Graves MD [address] [place] [address] 04/28/2024 10:20 AM EDT Office Visit [facility] [address] [facility] [address] June Maria CRNP 132 [facility] [place] [address] 08/18/2024 10:00 AM EST Office Visit [facility] [address] [facility] [place] [address] Apolinar Herrera DO 132 [place] [address] 12/07/2024 10:30 AM EDT Home Visit [facility] [address] [place] [address] Carolann Gomez PA-C [address] [place] [address] 12/08/2024 11:30 AM EDT Office Visit Urology, [facility] [address] [place] [address] Peterson Graves MD [address] [place] [address] Scheduled Procedures Name Priority Associated Diagnoses Date/Ti me PERCUTANEOUS NEPHROSTOLITHOT KAROLINA OVER 2CM Ureteral stone 04/02/2024 7:45 AM EDT CYSTOURETHROSCOPY URETEROSCO PY WITH LITHOTRIPSY AND STENT INSERTION Ureteral stone 04/02/2024 7:45 AM EDT Health Maintenance Due Date Last Done Comments Fecal Occult Blood Test 1998 Sigmoidoscopy 1998 COVID-19 Vaccine (2022- season) 2023 07/24/2022, 07/11/2021, 12/23/2020, Additional history [...] this encounter Medical Devices Implanted Type Area Caustic Mixer Device Identifier Shelf Expiration Date Model / Serial / Lot Vitnovant [facility] Square 30cm X 30cm - [id number] Implanted:Qty : 1 on 04/21/2015 by Neno Crum MD at OR [facility] N/A: Abdomen [employer] 01/07/2020 [id number] / / [id number] Xenmatrix Surgical Graft Implanted:Qty : 1 on 05/15/2022 by Neno Crum MD at OR [facility] Left: Abdomen 11/06/2022 [id number] / / [id number] Description:15 cm x 20 cm Mesh Capsure Fixation 30 - [id number] Implanted:Qty : 1 on 05/15/2022 by Neno Crum MD at OR [facility] CR BARD : DAVOL 08/06/2022 [id number] / / Cath Pwr Picc Solo Inj 4f - [id number] Implanted:Qty : 1 on 07/04/2023 at [facility] CR BARD : ACCESS SYSTEMS [id number] 11/06/2024 [id number] / / [id number] Cath Drain Rashad Varghese 12f - [id number] Implanted:Qty : 1 on 09/12/2023 by Chalino Walker MD at OR [facility] COOK : VASCULAR INC [id number] 01/23/2026 [id number] / / [id number] documented as of this encounter Visit Diagnoses [...] Relationship Healthcare Agent Relationship Communication Santos [facility] Care Re presentative (appointed verbally by patient or by statute hierarchy) [email or web address] Care Teams Office Executive Relationship Specialty Start Date End Date Apolinar Herrera DO [address] [place] [address] PCP - General Family Medicine 03/27/18 documented as of this encounter
--- OUTSIDE RECORDS SUMMARY | 2024-03-11 14:20 | External Medical Summary | Summary of Care ---
Author Name Unknown Organization [facility] Address [address] [place] [address] Phone [phone] Care Team Providers Care Mine Technician Name Role Phone Apolinar Herrera DO Primary Care Provider Reason for Visit * Reason Onset Date Comments [facility]: Maintenance 03/02/2024 Encounter Details Date Type Department Care Team (Late st Contact Info) Description 03/02/2024 Telephone [facility], [facility] [address] [facility] [place] [address] [facility], Nurse [facility] [address] [facility] [place] [address] [facility]: Maintenance Allergies Active Allergy [...] Plan: Rx sent but he did not sheepskin pickler. He will call pharmacy. Advised after completing [...] He has Urology follow-up November 12 at [place]. Suprapubic catheter 11/01/2023 Last Assessment & Plan: [...] (Vaxneuvance) 07/20/2013 Pneumococcal Conjugate Vacci ne, 20-valent ([id number]) 03/26/2023,12/28/2022 Pneumococcal Polysaccharide PPV23 (Pneumovax) 12/12/2021,10/22/2016 RSV [...] assess it pt is still active with [facility] Care clinic. No answer. LMOM for [...] PM EDT Scheduled Telephone [facility], [facility] [address] [place] [address] Juany Hughes, RDN [address] [place] [address] 03/17/2024 2:00 PM EDT Nurse Only Urology, [place] [address] [place] [address] [place], Nurse Urology [address] [place] [address] 03/19/2024 4:00 PM EDT Home Visit [facility], [facility] 132 [place] [address] Cheryl Jones RN 132 [place] [address] 04/01/2024 10:30 AM EDT Telemedicine [facility], [facility] 132 [facility] [place] [address] Jes Rodriguez CRNP 132 [place] [address] Juhi Dotson, [facility] [employer] Boards Contact Printer [address] [place] [address] 04/02/2024 7:45 AM EDT Hospital Encounter OR [facility], OPERATING ROOM [facility], LACY CAMPOSJAMESDERRICK [address] [facility] [place] [address] Joslyn Gonsalez MD [address] [facility] [place] [address] 04/02/2024 7:45 AM EDT - 04/02/2024 11:44 AM EDT Surgery OR [facility], OPERATING ROOM [facility], LACY PAVILION [address] [facility] [place] [phone] Joslyn Gonsalez MD [address] [facility], [place] [address] PERCUTANEOUS NEPHROSTOLITHOTOMY OVER 2CM 04/10/2024 12:45 PM EDT Telemedicine General Surgery, [address] [address] Neno Crum MD [address] [facility] [place] [address] 04/10/2024 2:30 PM EDT Office Visit Urology Danica [place] [address] [place] [address] Peterson Graves MD [address] [place] [address] 04/28/2024 10:20 AM EDT Office Visit [facility] [address] [place] [address] June Maria CRNP [address] [place] [address] 08/18/2024 10:00 AM EST Office Visit [facility] [address] [place] [address] Apolinar Herrera DO [address] [place] [address] 12/07/2024 10:30 AM EDT Home Visit [facility] [address] [facility] [place] [address] Carolann Gomez PA-C [address] [facility] [place] [address] 12/08/2024 11:30 AM EDT Office Visit Urology, [facility] [address] [place] [address] Peterson Graves MD [address] [place] [address] Scheduled Procedures Name Priority Associated Diagnoses Date/Ti [...] this encounter Medical Devices Implanted Type Area Counseling Center Director Device Identifier Shelf Expiration Date Model / Serial / Lot Vitamesh Square 30cm X 30cm - [id number] Implanted:Qty : 1 on 04/21/2015 by Neno Crum MD at OR [facility] N/A: Abdomen [employer] 01/07/2020 [id number] / / [id number] Xenmatrix Surgical Graft Implanted:Qty : 1 on 05/15/2022 by Neno Crum MD at OR [facility] Left: Abdomen 11/06/2022 [id number] / / [id number] Description:15 cm x 20 cm Mesh Capsure Fixation 30 - [id number] Implanted:Qty : 1 on 05/15/2022 by Neno Crum MD at OR [facility] CR BARD : DAVOL 08/06/2022 [id number] / / Cath Pwr Picc Solo Inj 4f - [id number] Implanted:Qty : 1 on 07/04/2023 at [facility] CR BARD : ACCESS SYSTEMS [id number] 11/06/2024 [id number] / / [id number] Cath Drain Rashad Varghese 12f - [id number] Implanted:Qty : 1 on 09/12/2023 by Chalino Walker MD at OR [facility] COOK : VASCULAR INC [id number] 01/23/2026 [id number] / / [id number] documented as of this encounter Advance Directives [...] Relationship Healthcare Agent Relationship Communication Santos Sommer [facility] Re presentative (appointed verbally by patient or by statute hierarchy) [email or web address] Care Teams Mine Technician Relationship Specialty Start Date End Date Apolinar Herrera DO [address] [place] [address] PCP - General Family Medicine 03/27/18 documented as of this encounter
--- OUTSIDE RECORDS SUMMARY | 2024-03-11 14:20 | External Medical Summary | Summary of Care ---
Author Name Unknown Organization [facility] Address [address] [place] [address] Phone [phone] Care Team Providers Care Cloth Pattern Maker Name Role Phone Apolinar Herrera DO Primary Care Provider Reason for Visit * Reason Onset Date Comments [facility]: Maintenance 03/02/2024 Encounter Details Date Type Department Care Team (Late st Contact Info) Description 03/02/2024 Telephone [facility], [facility] 132 [facility] [place] [address] [facility], Nurse [facility] [address] [facility] [place] [address] [facility]: Maintenance Allergies Active Allergy [...] Plan: Rx sent but he did not warehouse order picker. He will call pharmacy. Advised after [...] He has Urology follow-up November 12 at [place]. Suprapubic catheter 11/01/2023 Last Assessment & Plan: [...] (Vaxneuvance) 07/20/2013 Pneumococcal Conjugate Vacci ne, 20-valent ([id number]) 03/26/2023,12/28/2022 Pneumococcal Polysaccharide PPV23 (Pneumovax) 12/12/2021,10/22/2016 RSV [...] as of this encounter Miscellaneous Notes * Addendum Note - Jes Rodriguez CRNP [...] assess it pt is still active with [facility]. No answer. LMOM for [...] PM EDT Scheduled Telephone [facility], [facility] [address] [place] [address] Juany Hughes, PRATIKN [address] [place] [address] 03/17/2024 2:00 PM EDT Nurse Only Urology, [place] [address] [place] [address] [place], Nurse Urology [address] [place] [address] 03/19/2024 4:00 PM EDT Home Visit [facility], [facility] 132 [facility] [place] [address] Cheryl Jones, RN 132 [place] [address] 04/01/2024 10:30 AM EDT Telemedicine [facility], [facility] 132 [facility] [place] [address] Jes Rodriguez CRNP 132 [place] [address] Juhi Dotson, [facility] Buildings Painter [address] [place] [address] 04/02/2024 7:45 AM EDT Hospital Encounter [facility], OPERATING ROOM [facility], LACY MARTINEZ [address] [facility] [place] [phone] Joslyn Gonsalez MD [address] [facility] [place] [address] 04/02/2024 7:45 AM EDT - 04/02/2024 11:44 AM EDT Surgery OR C, OPERATING ROOM [facility], LACY PAVILION [address] [facility] [place] [phone] Joslyn Gonsalez MD [address] [place] [address] PERCUTANEOUS NEPHROSTOLITHOTOMY OVER 2CM 04/10/2024 12:45 PM EDT Telemedicine General Surgery, [address] [address] Neno Crum MD [address] [facility] [place] [address] 04/10/2024 2:30 PM EDT Office Visit Urology Danica [place]man [address] [place] [address] Peterson Graves MD [address] [place] [address] 04/28/2024 10:20 AM EDT Office Visit [facility] 132 [facility] [place] [address] June Maria CRNP 132 [place] [address] 08/18/2024 10:00 AM EST Office Visit [facility] 132 [facility] [address] Apolinar Herrera DO 132 [place] [address] 12/07/2024 10:30 AM EDT Home Visit [facility] [address] [place] [address] Carolann Gomez PA-C [address] [place] [address] 12/08/2024 11:30 AM EDT Office Visit Urology, [facility] 132 [facility] [place] [address] Peterson Graves MD [address] [place] [address] Scheduled Procedures Name Priority Associated Diagnoses Date/Ti [...] 05/01/2017, Additional history exists Colonoscopy 01/13/2034 01/14/2024, 0 03/2024, 09/13/2022, Additional history exists Colorectal Cancer [...] this encounter Medical Devices Implanted Type Area Sod Farmer Device Identifier Shelf Expiration Date Model / Serial / Lot Vitnovant [facility] Square 30cm X 30cm - [id number] Implanted:Qty : 1 on 04/21/2015 by Neno Crum MD at OR [facility] N/A: Abdomen [employer] 01/07/2020 [id number] / / [id number] Xenmatrix Surgical Graft Implanted:Qty : 1 on 05/15/2022 by Neno Crum MD at OR [facility] Left: Abdomen 11/06/2022 [id number] / / [id number] Description:15 cm x 20 cm Mesh Capsure Fixation 30 - [id number] Implanted:Qty : 1 on 05/15/2022 by Neno Crum MD at OR [facility] CR BARD : DAVOL 08/06/2022 [id number] / / Cath Pwr Picc Solo Inj 4f - [id number] Implanted:Qty : 1 on 07/04/2023 at [facility] CR BARD : ACCESS SYSTEMS [id number] 11/06/2024 [id number] / / [id number] Cath Drain Rashad Varghese 12f - [id number] Implanted:Qty : 1 on 09/12/2023 by Chalino Walker MD at OR [facility] COOK : VASCULAR INC [id number] 01/23/2026 [id number] / / [id number] documented as of this encounter Visit Diagnoses [...] Name Relationship Healthcare Agent Relationship Communication [facility] Re presentative (appointed verbally by patient or by statute hierarchy) [email or web address] Care Teams Cloth Pattern Maker Relationship Specialty Start Date End Date Apolinar Herrera DO [address] [place] [address] PCP - General Family Medicine 03/27/18 documented as of this encounter
--- OUTSIDE RECORDS SUMMARY | 2024-03-11 14:21 | External Medical Summary | Summary of Care ---
Author Name Unknown Organization [facility] Address [address] [place] [address] Phone [phone] Care Team Providers Care Executive Vice President Business Development Name Role Phone Apolinar Herrera DO Primary Care Provider Reason for Visit * Reason Onset Date Comments [facility]: Maintenance 03/02/2024 Encounter Details Date Type Department Care Team (Late st Contact Info) Description 03/02/2024 Telephone [facility], [facility] 132 [facility] [place] [address] [facility], Nurse [facility] [address] [facility] [place] [address] [facility]: Maintenance Allergies Active Allergy [...] as of this encounter (statuses as of 03/02/2024) Medications Medication Sig Dispensed Refills Start Date [...] as of this encounter (statuses as of 03/02/2024) Active Problems Problem Noted Date Diagnosed Date Vitamin D deficiency 12/29/2023 Last Assessment & Plan: Rx sent but he did not pick up man. He will call pharmacy. Advised after completing [...] He has Urology follow-up November 12 at [place]. Suprapubic catheter 11/01/2023 Last Assessment & Plan: [...] as of this encounter (statuses as of 03/02/2024) Resolved Problems Problem Noted Date Diagnosed Date [...] as of this encounter (statuses as of 03/02/2024) Immunizations Name Administration Dates Next Due COVID-19 mRNA, LNP-s, No Pre serve, 2-Dose Series (Pfizer) 07/11/2021,12/23/2020,12/02/2020 Covid-19, Mrna, Lnp-s, Pf, B ivalent, 30 Mcg, IM, 12 yrs and above (Pfizer) 07/24/2022 PPD 07/11/2023 Pneumococcal Conjugate Vacci ne, 15-valent (Vaxneuvance) 07/20/2013 Pneumococcal Conjugate Vacci ne, 20-valent ([id number]) 03/26/2023,12/28/2022 Pneumococcal Polysaccharide PPV23 (Pneumovax) 12/12/2021,10/22/2016 RSV [...] assess it pt is still active with [facility]. No answer. LMOM for [...] PM EDT Scheduled Telephone [facility], [facility] [address] [facility] [place] [address] Juany Hughes, RDN [address] [facility] [place] [address] 03/17/2024 2:00 PM EDT Nurse Only Urology, [place] [address] [place] [facility] [place] [address] [place], Nurse Urology [address] [place] [address] 03/19/2024 4:00 PM EDT Home Visit [facility], [facility] 132 [place] [address] Cheryl Jones RN 132 [place] [address] 04/01/2024 10:30 AM EDT Telemedicine [facility], [facility] 132 [place] [address] Jes Rodriguez CRNP 132 [place] [address] Juhi Dotson, Community Health Business Management Manager [address] [place] [address] 04/02/2024 7:45 AM EDT Hospital Encounter [facility], OPERATING ROOM [facility], LACY FREED [address] [place] [facility] [place] [phone] Jolsyn Gonsalez MD [address] [place] [address] 04/02/2024 7:45 AM EDT - 04/02/2024 11:44 AM EDT Surgery [facility], OPERATING ROOM [facility], LACY [facility]AV[facility]ION [address] [place] [facility] [place] [address] Joslyn Gonsalez MD [address] [place] [address] PERCUTANEOUS NEPHROSTOLITHOTOMY OVER 2CM 04/10/2024 12:45 PM EDT Telemedicine General Surgery, [address] [address] Neno Crum MD [address] [place] [address] 04/10/2024 2:30 PM EDT Office Visit Urology Danica Holman [address] [address] [place] [address] Peterson Graves MD [address] [address] [facility] [place] [address] 04/28/2024 10:20 AM EDT Office Visit [facility] 132 [facility] [place] [address] June Maria CRNP 132 [facility] [place] [address] 08/18/2024 10:00 AM EST Office Visit [facility] 132 [facility] [place] [address] Apolinar Herrera DO [facility] [place] [address] 12/07/2024 10:30 AM EDT Home Visit [facility] at [facility] [address] [facility] [place] [address] Carolann Gomez PA-C [address] [place] [address] 12/08/2024 11:30 AM EDT Office Visit Urology, [facility] [address] [place] [address] Peterson Graves MD 27 [facility] 270 [place] [address] Scheduled Procedures Name [...] this encounter Medical Devices Implanted Type Area Receiving Worker Device Identifier Shelf Expiration Date Model / Serial / Lot Hallie Square 30cm X 30cm - [id number] Implanted:Qty : 1 on 04/21/2015 by Neno Crum MD at [place] [facility] N/A: Abdomen [employer] 01/07/2020 [id number] / / [id number] Xenmatrix Surgical Graft Implanted:Qty : 1 on 05/15/2022 by Neno Crum MD at OR [facility] Left: Abdomen 11/06/2022 [id number] / / [id number] Description:15 cm x 20 cm Mesh Capsure Fixation 30 - [id number] Implanted:Qty : 1 on 05/15/2022 by Neno Crum MD at [place] [facility] CR BARD : DAVOL 08/06/2022 [id number] / / Cath Pwr Picc Solo Inj 4f - [id number] Implanted:Qty : 1 on 07/04/2023 at [facility] CR BARD : ACCESS SYSTEMS [id number] 11/06/2024 [id number] / / [id number] Cath Drain Solorzano Varghese 12f - [id number] Implanted:Qty : 1 on 09/12/2023 by Chalino Walker MD at OR [facility] COOK : VASCULAR INC [id number] 01/23/2026 [id number] / / [id number] documented as of this encounter Advance Directives [...] Relationship Healthcare Agent Relationship Communication Santos Sommer [facility] Re presentative (appointed verbally by patient or by statute hierarchy) [email or web address] Care Teams Executive Vice President Business Development Relationship Specialty Start Date End Date Apolinar Herrera DO [address] [place] [address] PCP - General Family Medicine 03/27/18 documented as of this encounter
--- OUTSIDE RECORDS SUMMARY | 2024-03-11 14:21 | External Medical Summary | Summary of Care ---
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 He will call pharmacy. Advised after completing [...] He has Urology follow-up November 12 at [place]. Suprapubic catheter 11/01/2023 Last Assessment & Plan: [...] mRNA, LNP-s, No Pre serve, 2-Dose Series ([employer]) 07/11/2021,12/23/2020,12/02/2020 Covid-19, Mrna, Lnp-s, Pf, B ivalent, 30 Mcg, IM, 12 yrs and above (Pfizer) 07/24/2022 PPD 07/11/2023 Pneumococcal Conjugate Vacci ne, 15-valent (Vaxneuvance) 07/20/2013 Pneumococcal Conjugate Vacci ne, 20-valent ([id number]) 03/26/2023,12/28/2022 Pneumococcal Polysaccharide PPV23 (Pneumovax) 12/12/2021,10/22/2016 RSV [...] - 02/27/2024 11:30 AM EDT Call to [employer] was told they have not supplied pt with any supplies since May of 2023 A new order for requested supplies will need to be placed and signed by a provider Then it can be uploaded to [employer] to find a DME company * Telephone Encounter - Cheryl Jones RN - 02/27/2024 7:56 AM EDT Does this mean the order needs signed by the provider first? Please follow up and check status with [facility] to see if supplies were sent out or if new order needs sent. Thank you. * Telephone Encounter - Romelia Felix LPN - 02/24/2024 4:39 PM EDT [facility] they did not receive any new DME order for colostomy bags and wafers I was informed pt has DME supplier for same [facility] [phone]. Call to DME supply company closed at time of call. Reviewed DME order from 02/20 has multiple items listed 10 cc saline syringes for flushing cath daily Kerlix gauze for wound Colostomy bags and wafers DME order electronically signed by a DARRYN no NPI can not submit [facility] * Telephone Encounter - Cheryl Jones RN [...] PM EDT Scheduled Telephone [facility], [facility] [address] [facility] [place] [address] Juany Hughes RDN [address] [facility] [place] 03/17/2024 2:00 PM EDT Nurse Only Urology, [place] [address] [facility] [place] [address] [place], Nurse Urology [address] [place] [address] 03/19/2024 4:00 PM EDT Home Visit [facility], [facility] 132 [place] [address] Cheryl Jones RN 132 [place] [address] 04/01/2024 10:30 AM EDT Telemedicine [facility], [facility] 132 [place] [address] Jes Rodriguez CRNP 132 [place] [address] Juhi Dotson, Community Health Asbestos Shingle Inspector [address] [place] [facility] [place] [address] 04/02/2024 7:45 AM EDT Hospital Encounter [facility], OPERATING ROOM [facility], LACY MARTINEZ [address] [facility] [place] [phone] Joslyn Gonsalez MD 100 [place] [facility] [place] [address] 04/02/2024 7:45 AM EDT - 04/02/2024 11:44 AM EDT Surgery OR [facility], OPERATING ROOM [facility], LACY FREED [address] [place] [address] Joslyn Gonsalez MD [address] [facility] [place] [address] PERCUTANEOUS NEPHROSTOLITHOTOMY OVER 2CM 04/10/2024 12:45 PM EDT Telemedicine General Surgery, [address] [phone] Neno Crum MD 100 [address] [facility] [address] 04/10/2024 2:30 PM EDT Office Visit Urology Danica Holman [address] [place] [address] Peterson Graves MD [address] [place] [address] 04/28/2024 10:20 AM EDT Office Visit [facility] [place] [address] June Maria CRNP [address] [place] [address] 08/18/2024 10:00 AM EST Office Visit [facility] [address] [place] [address] Apolinar Herrera DO 132 [place] [address] 12/07/2024 10:30 AM EDT Home Visit [facility] at Home [address] [place] [address] Carolann Gomez PA-C [address] [place] [address] 12/08/2024 11:30 AM EDT Office Visit Urology, [facility] 132 [facility] [place] [address] Peterson Graves MD [address] [place] [address] Scheduled Procedures Name Priority Associated Diagnoses Date/Ti [...] this encounter Medical Devices Implanted Type Area Drosophere Operator Device Identifier Shelf Expiration Date Model / Serial / Lot [facility] Square 30cm X 30cm - [id number] Implanted:Qty : 1 on 04/21/2015 by Neno Crum MD at OR [facility] N/A: Abdomen [employer] 01/07/2020 [id number] / / [id number] Xenmatrix Surgical Graft Implanted:Qty : 1 on 05/15/2022 by Neno Crum MD at [facility] Left: Abdomen 11/06/2022 [id number] / / [id number] Description:15 cm x 20 cm Mesh Capsure Fixation 30 - [id number] Implanted:Qty : 1 on 05/15/2022 by Neno Crum MD at [facility] CR BARD : DAVOL 08/06/2022 [id number] / / Cath Pwr Picc Solo Inj 4f - [id number] Implanted:Qty : 1 on 07/04/2023 at [facility] CR BARD : ACCESS SYSTEMS [id number] 11/06/2024 [id number] / / [id number] Cath Drain Solorzano Varghese 12f - [id number] Implanted:Qty : 1 on 09/12/2023 by Chailno Walker MD at [facility] COOK : VASCULAR INC [id number] 01/23/2026 [id number] / / [id number] documented as of this encounter Advance Directives [...] Name Relationship Healthcare Agent Relationship Communication [facility] Care Re presentative (appointed verbally by patient or by statute hierarchy) [email or web address] Care Teams Lining Strap Closer Relationship Specialty Start Date End Date Apolinar Herrera DO 132 [place] [address] PCP - General Family Medicine 03/27/18 documented as of this encounter
--- OUTSIDE RECORDS SUMMARY | 2024-03-11 15:40 | External Medical Summary | Summary of Care ---
Author Name Unknown Organization [facility] Address [address] [place] [address] Phone [phone] Care Team Providers Care Experience Planning Strategist Name Role Phone Olimpia Herrera DO Primary Care Provider Reason for Visit * Reason Onset Date Comments [facility]: Maintenance 02/24/2024 Encounter Details Date Type Department Care Team (Late st Contact Info) Description 02/24/2024 Telephone [facility], [facility] [address] [place] [address] Cheryl Jones, RN [address] [place] [address] [facility]: Maintenance Allergies Active Allergy Reactions Criticality Noted Date Comments Adhesive Tape 01/03/1999 Silk tape ( not true allergy), preeti brand ostomy wafer - skin breaks out Aspirin 01/03/1999 GI upset Clindamycin Rash 02/09/2014 Penicillins 07/17/2013 Rash 2012 while on ampicillin for skin decubitus wound Bilat lower extremity pruritic rash when taken for UTI- 04/2019 Pineapple 12/12/2012 Myles tongue Povidone Iodine 01/03/1999 Rash, reports hives Vancomycin Hives High 02/08/2022 documented as of this encounter (statuses as of 03/10/2024) Medications Medication Sig Dispensed Refills Start Date [...] as of this encounter (statuses as of 03/10/2024) Active Problems Problem Noted Date Diagnosed Date Vitamin D deficiency 12/29/2023 Last Assessment & Plan: Rx sent but he did not berry picker. He will call pharmacy. Advised after [...] He has Urology follow-up November 12 at [place]. Suprapubic catheter 11/01/2023 Last Assessment & Plan: [...] as of this encounter (statuses as of 03/10/2024) Resolved Problems Problem Noted Date Diagnosed Date [...] as of this encounter (statuses as of 03/10/2024) Immunizations Name Administration Dates Next Due COVID-19 mRNA, LNP-s, No Pre serve, 2-Dose Series ([employer]) 07/11/2021,12/23/2020,12/02/2020 Covid-19, Mrna, Lnp-s, Pf, B ivalent, 30 Mcg, IM, 12 yrs and above (Pfizer) 07/24/2022 PPD 07/11/2023 Pneumococcal Conjugate Vacci ne, 15-valent (Vaxneuvance) 07/20/2013 Pneumococcal Conjugate Vacci ne, 20-valent ([id number]) 03/26/2023,12/28/2022 Pneumococcal Polysaccharide PPV23 (Pneumovax) 12/12/2021,10/22/2016 RSV [...] encounter Miscellaneous Notes * Telephone Encounter - Joslyn May LPN - 03/10/2024 4:20 PM EDT Order [id number] * Telephone Encounter - Joslyn May LPN - 03/10/2024 4:19 PM EDT Submitted through [email or web address]. Patient no longer uses [facility] for supplies. Uses [facility]. 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 Also colostomy bags and wafers * Telephone Encounter - Olimpia Herrera DO - 03/03/2024 11:55 AM EDT Unsure what supplies patient needs? * Telephone Encounter - Romelia Felix LPN - 02/27/2024 11:30 AM EDT Call to [employer] was told they have not supplied pt with any supplies since May of 2023 A new order for requested supplies will need to be placed and signed by a provider Then it can be uploaded to [email or web address] to find a DME company * Telephone Encounter - Cheryl Jones RN - 02/27/2024 7:56 AM EDT Does this mean the order needs signed by the provider first? Please follow up and check status with [facility] to see if supplies were sent out or if new order needs sent. Thank you. * Telephone Encounter - Romelia Felix LPN - 02/24/2024 4:39 PM EDT Call to [email or web address] they did not receive any new DME order for colostomy bags and wafers I was informed pt has DME supplier for same [facility] [phone]. Call to DME supply company closed at time of call. Reviewed DME order from 02/20 has multiple items listed 10 cc saline syringes for flushing cath daily Kerlix gauze for wound Colostomy bags and wafers DME order electronically signed by a DARRYN no NPI can not submit to [facility] * Telephone Encounter - Cheryl Jones RN [...] EDT Nurse Only Urology, [place] [facility] [address] [place], Nurse Urology [address] [facility] [place] [address] 03/19/2024 4:00 PM EDT [facility] Visit [facility] 132 [facility] [place] [address] Cheryl Jones RN [address] [place] [address] 04/01/2024 10:30 AM EDT Telemedicine [facility], [facility] [address] [place] [address] Jes Rodriguez CRNP 132 [place] [address] Juhi Dotson, Community Health Crown Assembly Machine Operator [address] [place], [place] [address] 04/02/2024 7:45 AM EDT Hospital Encounter [facility], OPERATING ROOM [facility] LACY CAMPOSWAVERLY [address] [place] [address] Joslyn Gonsalez MD [address] [place], [place] [address] 04/02/2024 7:45 AM EDT - 04/02/2024 11:44 AM EDT Surgery OR [facility], OPERATING ROOM [facility], LACY PAVWAVERLY [address] [place] [address] Joslyn Gonsalez MD [address] [place], [place] [phone] PERCUTANEOUS NEPHROSTOLITHOTOMY OVER 2CM 04/07/2024 11:30 AM EDT Scheduled Telephone [facility], [facility] [address] [facility] [place] [address] Juany Hughes RDN [address] [facility] [place] [address] 04/10/2024 12:45 PM EDT Telemedicine General Surgery, [address] [address] Neno Crum MD [address] [place], [place] [address] 04/10/2024 2:30 PM EDT Office Visit Urology Danica Holman [address] [place] [address] Peterson Graves MD 27 [place] [address] 04/28/2024 10:20 AM EDT Office Visit [facility] 132 [facility] [place] [address] June Maria CRNP 132 [place] [address] 08/18/2024 10:00 AM EST [facility] [place] [address] Olimpia Herrera DO 132 [facility] [place] [address] 12/07/2024 10:30 AM EDT Home Visit [facility] at Home [address] [place] [address] Carolann Gomez PA-C [address] [place] [address] 12/08/2024 11:30 AM EDT Office Visit Urology, [facility] 132 [facility] [place] [address] Peterson Graves MD 27 [place] [address] Scheduled Procedures Name Priority Associated Diagnoses Date/Ti [...] Completed 09/10/2023, 06/10, 06/04/2023, Additional history exists HPV (Gardasil) Vaccine Aged Out No lo nger eligible based on patient's age to complete this topic Hepatitis B Vaccine Aged Out No longe r eligible based on patient's age to complete this topic MENINGOCOCCAL (MENACTRA/MENVEO) Aged Out No longer eligible based on patient's age to complete this topic documented as of this encounter Medical Devices Implanted Type Area Building Supervisor Device Identifier Shelf Expiration Date Model / Serial / Lot [facility] Square 30cm X 30cm - [id number] Implanted:Qty : 1 on 04/21/2015 by Neno Crum MD at [place] [facility] N/A: Abdomen [employer] 01/07/2020 [id number] / / [id number] Xenmatrix Surgical Graft Implanted:Qty : 1 on 05/15/2022 by Neno Crum MD at [facility] Left: Abdomen 11/06/2022 [id number] / / [id number] Description:15 cm x 20 cm Mesh Capsure Fixation 30 - [id number] Implanted:Qty : 1 on 05/15/2022 by Neno Crum MD at [facility] CR BARD : DAVOL 08/06/2022 [id number] / / Cath Pwr Picc Solo Inj 4f - [id number] Implanted:Qty : 1 on 07/04/2023 at [facility] CR BARD : ACCESS SYSTEMS [id number] 11/06/2024 [id number] / / [id number] Cath Drain Rashad Varghese 12f - [id number] Implanted:Qty : 1 on 09/12/2023 by Chalino Walker MD at [facility] COOK : VASCULAR INC [id number] 01/23/2026 [id number] / / [id number] documented as of this encounter Visit Diagnoses Diagnosis Colostomy status (HCC)- Primary Colostomy status Ureteral stone Calculus of ureter documented in [...] Relationship Healthcare Agent Relationship Communication Santos Sommer [facility] Re presentative (appointed verbally by patient or by statute hierarchy) [email or web address] Care Teams Experience Planning Strategist Relationship Specialty Start Date End Date Olimpia Herrera DO 132 [place] [address] PCP - General Family Medicine 03/27/18 documented as of this encounter
--- OUTSIDE RECORDS SUMMARY | 2024-03-11 15:40 | External Medical Summary | Summary of Care ---
Author Name Unknown Organization [facility] Address [address] [place] [address] Phone [phone] Care Team Providers Care Chair Car Driver Name Role Phone Olimpia Herrera DO Primary Care Provider Reason for Visit * Reason Onset Date Comments [facility]: Maintenance 02/24/2024 Encounter Details Date Type Department Care Team (Late st Contact Info) Description 02/24/2024 Telephone [facility], [facility] [address] [place] [address] Cheryl Jones, RN [address] [place] [address] [facility]: Maintenance Allergies Active Allergy [...] Rx sent but he did not warehouse picker. He will call pharmacy. Advised after [...] He has Urology follow-up November 12 at [place]. Suprapubic catheter 11/01/2023 Last Assessment & Plan: [...] mRNA, LNP-s, No Pre serve, 2-Dose Series (Acustream) 07/11/2021,12/23/2020,12/02/2020 Covid-19, Mrna, Lnp-s, Pf, B ivalent, 30 Mcg, IM, 12 yrs and above (Pfizer) 07/24/2022 PPD 07/11/2023 Pneumococcal Conjugate Vacci ne, 15-valent (Vaxneuvance) 07/20/2013 Pneumococcal Conjugate Vacci ne, 20-valent ([id number]) 03/26/2023,12/28/2022 Pneumococcal Polysaccharide PPV23 (Pneumovax) 12/12/2021,10/22/2016 RSV [...] encounter Miscellaneous Notes * Addendum Note - Olmipia Herrera DO - 03/10/2024 4:10 PM EDTAddended by: OLIMPIA HERRERA on: 03/10/2024 04:10 PM Modules accepted: Orders * Addendum Note - Joslyn May LPN - 03/10/2024 4:05 PM EDTAddended by: JOSLYN MAY on: 03/10/2024 04:05 PM Modules accepted: Orders * Telephone Encounter - Olimpia Herrera DO - 03/09/2024 3:15 PM EDT Pend for signature please * Telephone Encounter - Lawanda Gordon MED ASSIST - 03/05/2024 7:59 AM EDT 5in x 9 in abdominal pads for wound care Please order 45 for a 30 day supply. Also colostomy bags and wafers * Telephone Encounter - Olimpia Herrera DO - 03/03/2024 11:55 AM EDT Unsure what supplies patient needs? * Telephone Encounter - Romelia Felix LPN - 02/27/2024 11:30 AM EDT Call to [employer] was told they have not supplied pt with any supplies since May of 2023 A new order for requested supplies will need to be placed and signed by a provider Then it can be uploaded to [employer]ub to find a DME company * Telephone Encounter - Cheryl Jones RN - 02/27/2024 7:56 AM EDT Does this mean the order needs signed by the provider first? Please follow up and [facility] to see if supplies were sent out or if new order needs sent. Thank you. * Telephone Encounter - Romelia Felix LPN - 02/24/2024 4:39 PM EDT Call to [facility] they did not receive any new DME order for colostomy bags and wafers I was informed pt has DME supplier for same [employer] [phone]. Call to DME supply company closed at time of call. Reviewed DME order from 02/20 has multiple items listed 10 cc saline syringes for flushing cath daily Kerlix gauze for wound Colostomy bags and wafers DME order electronically signed by a DARRYN no NPI can not submit to [employer] * Telephone Encounter - Cheryl Jones [...] 03/17/2024 2:00 PM EDT Nurse Only Urology, [place] [address] [place] [address] [place], Nurse Urology [facility] [address] 03/19/2024 4:00 PM EDT [facility] [address] [place] [address] Cheryl Jones, RN [address] [place] [address] 04/01/2024 10:30 AM EDT [facility]medicine [facility] [address] [place] [address] Jes Rodriguez CRNP [address] [place] [address] Juhi Dotson, Community Health Forensic Accountant [address] [place] [address] 04/02/2024 7:45 AM EDT Hospital Encounter [facility] [place] [facility] [place] LACY ABDIAZIZ [address] [place] [address] Joslyn Gonsalez MD [address] [place] [address] 04/02/2024 7:45 AM EDT - 04/02/2024 11:44 AM EDT Surgery [facility], O[place]ATING ROOM [facility] [place] LACY ANDRESAMBOY [address] [facility] [place] [phone] Joslyn Gonsalez MD [address] [place] [address] PERCUTANEOUS NEPHROSTOLITHOTOMY OVER 2CM 04/07/2024 11:30 AM EDT Scheduled Telephone [facility], [facility] [address] [place] [facility] [place] [address] Juany Hughes, [facility] [address] [place] [facility] [place] [address] 04/10/2024 12:45 PM EDT Telemedicine General Surgery, [address] [address] Neno Crum MD [address] [place] [address] 04/10/2024 2:30 PM EDT Office Visit Urology Danica Holman [address] [place] [address] Peterson Graves MD [address] [place] [address] 04/28/2024 10:20 AM EDT Office Visit Family Practice [facility] [address] [place] [address] June Maria CRNP [address] [place] [address] 08/18/2024 10:00 AM EST Office Visit Family Practice [facility] [address] [place] [address] Olimpia Herrera DO 132 [facility] [place] [address] 12/07/2024 10:30 AM EDT Home Visit Care at Home [address] [place] [address] Carolann Gomez PA-C [address] [place] [address] 12/08/2024 11:30 AM EDT Office Visit Urology, [facility] [address] [facility] [place] [address] Peterson Graves MD [address] [facility] [place] [address] Scheduled Procedures Name Priority Associated Diagnoses Date/Ti [...] this encounter Medical Devices Implanted Type Area Fuel System Maintenance Supervisor Device Identifier Shelf Expiration Date Model / Serial / Lot [facility] Square 30cm X 30cm - [id number] Implanted:Qty : 1 on 04/21/2015 by Neno Crum MD [place] [facility] [place] N/A: Abdomen [employer] 01/07/2020 [id number] / / [id number] Xenmatrix Surgical Graft Implanted:Qty : 1 on 05/15/2022 by Neno Crum MD at [facility] Left: Abdomen 11/06/2022 [id number] / / [id number] Description:15 cm x 20 cm Mesh Capsure Fixation 30 - [id number] Implanted:Qty : 1 on 05/15/2022 by Neno Crum MD at [facility] CR BARD : DAVOL 08/06/2022 [id number] / / Cath Pwr Picc Solo Inj 4f - [id number] Implanted:Qty : 1 on 07/04/2023 at [facility] CR BARD : ACCESS SYSTEMS [id number] 11/06/2024 [id number] / / [id number] Cath Drain Solorzano Varghese 12f - [id number] Implanted:Qty : 1 on 09/12/2023 by Chalino Walker MD at OR [facility] COOK : VASCULAR INC [id number] 01/23/2026 [id number] / / [id number] documented as of this encounter Visit Diagnoses [...] Relationship Healthcare Agent Relationship Communication Santos Sommer [facility] Re presentative (appointed verbally by patient or by statute hierarchy) [email or web address] Care Teams Chair Car Driver Relationship Specialty Start Date End Date Olimpia Herrera DO [address] [place] [address] PCP - General Family Medicine 03/27/18 documented as of this encounter
--- OUTSIDE RECORDS SUMMARY | 2024-03-11 15:40 | External Medical Summary | Summary of Care ---
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 He will call pharmacy. Advised after completing [...] He has Urology follow-up November 12 at [place]. Suprapubic catheter 11/01/2023 Last Assessment & Plan: [...] mRNA, LNP-s, No Pre serve, 2-Dose Series (Pointworthy) 07/11/2021,12/23/2020,12/02/2020 Covid-19, Mrna, Lnp-s, Pf, B ivalent, 30 Mcg, IM, 12 yrs and above (Pfizer) 07/24/2022 PPD 07/11/2023 Pneumococcal Conjugate Vacci ne, 15-valent (Vaxneuvance) 07/20/2013 Pneumococcal Conjugate Vacci ne, 20-valent ([id number]) 03/26/2023,12/28/2022 Pneumococcal Polysaccharide PPV23 (Pneumovax) 12/12/2021,10/22/2016 RSV [...] LPN - 03/10/2024 4:20 PM EDT Order [id number] * Telephone Encounter - Joslyn May LPN - 03/10/2024 4:19 PM EDT Submitted through [employer]. Patient no longer uses [facility] for supplies. Uses [facility]. Transparent coloplast pouches #21266 Expro ostomy base #28226 * Addendum Note - Olimpia Herrera DO [...] - 02/27/2024 11:30 AM EDT Call to [facility] was told they have not supplied pt with any supplies since May of 2023 A new order for requested supplies will need to be placed and signed by a provider Then it can be uploaded to [employer] to find a DME company * Telephone Encounter - Cheryl Jones RN - 02/27/2024 7:56 AM EDT Does this mean the order needs signed by the provider first? Please follow up and check status with [facility] to see if supplies were sent out or if new order needs sent. Thank you. * Telephone Encounter - Romelia Felix LPN - 02/24/2024 4:39 PM EDT Call to [employer] [facility] they did not receive any new DME order for colostomy bags and wafers I was informed pt has DME supplier for same [employer] [facility] [phone]. Call to DME supply company closed at time of call. Reviewed DME order from 02/20 has multiple items listed 10 cc saline syringes for flushing cath daily Kerlix gauze for wound Colostomy bags and wafers DME order electronically signed by a DARRYN no NPI [facility] * Telephone Encounter - Cheryl Jones RN [...] EDT Nurse Only Urology, [place] [address] [facility] [address] [place], Nurse Urology [address] [facility] [place] [address] 03/19/2024 4:00 PM EDT Home Visit [facility] [address] [facility] [place] [address] Cheryl Jones RN [address] [place] [address] 04/01/2024 10:30 AM EDT Telemedicine [facility], [facility] [address] [place] [address] Jes Rodriguez CRNP [address] [place] [address] Juhi Dotson, Community Health Pool Coordinator [address] [place], [place] [address] 04/02/2024 7:45 AM EDT Hospital Encounter [facility], OPERATING ROOM [facility], LACY CAMPOSLEFORS [address] [place] [address] Joslyn Gonsalez MD [address] [place], [place] [address] 04/02/2024 7:45 AM EDT - 04/02/2024 11:44 AM EDT Surgery [facility], OPERATING ROOM [facility], LACY PAVLEFORS [address] [place] [address] Joslyn Gonsalez MD [address] [place], [place] [address] PERCUTANEOUS NEPHROSTOLITHOTOMY OVER 2CM 04/07/2024 11:30 AM EDT Scheduled Telephone [facility], [facility] [address] [facility] [place] [address] Juany Hughes RDN [address] [facility] [place] [address] 04/10/2024 12:45 PM EDT Telemedicine General Surgery, [address] [address] Neno Crum MD [address] [place], [place] [address] 04/10/2024 2:30 PM EDT Office Visit Urology Danica Holman [address] [place] [address] Peterson Graves MD [address] [place] [address] 04/28/2024 10:20 AM EDT Office Visit [facility] 132 [facility] [place] [address] June Maria CRNP 132 [place] [address] 08/18/2024 10:00 AM EST Office Visit [facility] [place] [address] Olimpia Herrera DO 132 [facility] [place] [address] 12/07/2024 10:30 AM EDT Home Visit Care at Home [address] [place] [address] Carolann Gomez PA-C [address] [place] [address] 12/08/2024 11:30 AM EDT Office Visit Urology, [facility] 132 [facility] [place] [address] Peterson Graves MD [address] [place] [address] Scheduled Procedures Name Priority Associated Diagnoses Date/Ti [...] encounter Medical Devices Implanted Type Area Editor News Device Identifier Shelf Expiration Date Model / Serial / Lot [facility] Square 30cm X 30cm - [id number] Implanted:Qty : 1 on 04/21/2015 by Neno Crum MD at OR [facility] N/A: Abdomen [employer] 01/07/2020 [id number] / / [id number] Xenmatrix Surgical Graft Implanted:Qty : 1 on 05/15/2022 by Neno Crum MD at [facility] Left: Abdomen 11/06/2022 [id number] / / [id number] Description:15 cm x 20 cm Mesh Capsure Fixation 30 - [id number] Implanted:Qty : 1 on 05/15/2022 by Neno Crum MD at [facility] CR BARD : DAVOL 08/06/2022 [id number] / / Cath Pwr Picc Solo Inj 4f - [id number] Implanted:Qty : 1 on 07/04/2023 at [facility] CR BARD : ACCESS SYSTEMS [id number] 11/06/2024 [id number] / / [id number] Cath Drain Rashad Varghese 12f - [id number] Implanted:Qty : 1 on 09/12/2023 by Chalino Walker MD at [facility] COOK : VASCULAR INC [id number] 01/23/2026 [id number] / / [id number] documented as of this encounter Visit Diagnoses [...] Relationship Healthcare Agent Relationship Communication Santos Sommer [facility] Re presentative (appointed verbally by patient or by statute hierarchy) [email or web address] Care Teams Rehabilitation Counselor Relationship Specialty Start Date End Date Olimpia Herrera DO [address] [place] [address] PCP - General Family Medicine 03/27/18 documented as of this encounter
--- OUTSIDE RECORDS SUMMARY | 2024-03-11 15:40 | External Medical Summary | Summary of Care ---
Author Name Unknown Organization [facility] Address [address] [place] [address] Phone [phone] Care Team Providers Care Saddle Tree Stitcher Name Role Phone Apolinar Herrera DO Primary Care Provider Reason for Visit * Reason Onset Date Comments [facility]: Maintenance 02/24/2024 Encounter Details Date Type Department Care Team (Late st Contact Info) Description 02/24/2024 Telephone [facility], [facility] [address] [place] [address] Cheryl Jones, RN [address] [place] [address] [facility]: Maintenance Allergies Active Allergy [...] Plan: Rx sent but he did not mushroom picker. He will call pharmacy. Advised after [...] He has Urology follow-up November 12 at [place]. Suprapubic catheter 11/01/2023 Last Assessment & Plan: [...] mRNA, LNP-s, No Pre serve, 2-Dose Series (Life360) 07/11/2021,12/23/2020,12/02/2020 Covid-19, Mrna, Lnp-s, Pf, B ivalent, 30 Mcg, IM, 12 yrs and above (Pfizer) 07/24/2022 PPD 07/11/2023 Pneumococcal Conjugate Vacci ne, 15-valent (Vaxneuvance) 07/20/2013 Pneumococcal Conjugate Vacci ne, 20-valent (Yphhqrc49) 03/26/2023,12/28/2022 Pneumococcal Polysaccharide PPV23 (Pneumovax) 12/12/2021,10/22/2016 RSV [...] Miscellaneous Notes * Addendum Note - Joslyn May LPN - 03/10/2024 4:05 PM EDTAddended by: JOSLYN MAY on: 03/10/2024 04:05 PM Modules accepted: Orders * Telephone Encounter - Apolinar Herrera DO [...] - 02/27/2024 11:30 AM EDT Call to [employer] was told they have not supplied pt with any supplies since May of 2023 A new order for requested supplies will need to be placed and signed by a provider Then it can be uploaded to [employer] to find a DME company * Telephone Encounter - Cheryl Jones RN - 02/27/2024 7:56 AM EDT Does this mean the order needs signed by the provider first? Please follow up and check status with [email or web address] to see if supplies were sent out or if new order needs sent. Thank you. * Telephone Encounter - Romelia Felix LPN - 02/24/2024 4:39 PM EDT Call to [facility] they did not receive any new DME order for colostomy bags and wafers I was informed pt has DME supplier for same bttn [phone]. Call to DME supply company closed at time of call. Reviewed DME order from 02/20 has multiple items listed 10 cc saline syringes for flushing cath daily Kerlix gauze for wound Colostomy bags and wafers DME order electronically signed by a DARRYN no NPI can not submit to [facility] * Telephone Encounter - Cheryl Jones [...] 03/17/2024 2:00 PM EDT Nurse Only Urology, [place] [address] [place] [address] [place], Nurse Urology [address] [place] [address] 03/19/2024 4:00 PM EDT [facility] [address] [place] [address] Cheryl Jones RN 132 [place] [address] 04/01/2024 10:30 AM EDT Telemedicine [facility], [facility] [address] [place] [address] Jes Rodriguez CRNP [address] [place] [address] Juhi Dotson, Community Health Fancy Stitcher [address] [place] [address] 04/02/2024 7:45 AM EDT Hospital Encounter OR [facility], OPERATING ROOM [facility], LACY FREED [address] [place] [address] Joslyn Gonsalez MD [address] [place] [address] 04/02/2024 7:45 AM EDT - 04/02/2024 11:44 AM EDT Surgery [facility] [place]AC[place] ANDRESILION [address] [place] [address] Joslyn Gonsalez MD [address] [place] [address] PERCUTANEOUS NEPHROSTOLITHOTOMY OVER 2CM 04/07/2024 11:30 AM EDT Scheduled Telephone [facility], [facility] [address] [facility] [place] [address] Juany Hughes, RDN [address] [facility] [place] [address] 04/10/2024 12:45 PM EDT Telemedicine General Surgery, [address] [phone] Neno Crum MD [address] [place], [place] [address] 04/10/2024 2:30 PM EDT Office Visit Urology Danica Holman [address] [facility] [address] [place] [address] Peterson Graves MD [address] [place] [address] 04/28/2024 10:20 AM EDT Office Visit [facility] [address] [place] [address] June Maria CRNP [address] [place] [address] 08/18/2024 10:00 AM EST Office Visit [facility] [address] [place] [address] Apolinar Herrera DO [address] [place] [address] 12/07/2024 10:30 AM EDT Home Visit Care at Home [address] [facility] [place] [address] Carolann Gomez PA-C [address] [facility] [place] [address] 12/08/2024 11:30 AM EDT Office Visit Urology, [facility] [address] [place] [address] Peterson Graves MD [address] [place] [address] Scheduled Procedures Name Priority Associated Diagnoses Date/Ti [...] this encounter Medical Devices Implanted Type Area Exchange Underwriting Consultant Device Identifier Shelf Expiration Date Model / Serial / Lot Vitamesh Square 30cm X 30cm - [id number] Implanted:Qty : 1 on 04/21/2015 by Neno Crum MD at [facility] N/A: Abdomen [employer] 01/07/2020 [id number] / / [id number] Xenmatrix Surgical Graft Implanted:Qty : 1 on 05/15/2022 by Neno Crum MD at [facility] Left: Abdomen 11/06/2022 [id number] / / [id number] Description:15 cm x 20 cm Mesh Capsure Fixation 30 - [id number] Implanted:Qty : 1 on 05/15/2022 by Neno Crum MD at [facility] CR BARD : DAVOL 08/06/2022 [id number] / / Cath Pwr Picc Solo Inj 4f - [id number] Implanted:Qty : 1 on 07/04/2023 at [facility] CR BARD : ACCESS SYSTEMS [id number] 11/06/2024 [id number] / / [id number] Cath Drain Solorzano Varghese 12f - [id number] Implanted:Qty : 1 on 09/12/2023 by Chalino Walker MD at OR [facility] COOK : VASCULAR INC [id number] 01/23/2026 [id number] / / [id number] documented as of this encounter Visit Diagnoses [...] Healthcare Agent Relationship Communication Santos Sommer [facility] Re presentative (appointed verbally by patient or by statute hierarchy) [email or web address] Care Teams Saddle Tree Stitcher Relationship Specialty Start Date End Date Apolinar Herrera DO [address] [place] [address] PCP - General Family Medicine 03/27/18 documented as of this encounter
[2024-03-11] MEDS ORDERED: PIPER/TAZO 4.5g in D5W MINI-B 100 ML IV SCH (16:00)
[2024-03-11 16:21] LABS: A calco-baum cmplx NotReported Not Detected (NotDetected); Bact fragilis Not Reported Not Detected (NotDetected); Blood Culture Id Panel See PCR Comment (NotDetected); C auris Not Reported Not Detected (NotDetected); CTX-M Resistant Gene Not Detected (NotDetected); Calbicans Not Reported Not Detected (NotDetected); Candida glabrata Not Reported Not Detected (NotDetected); Candida krusei Not Reported Not Detected (NotDetected); Cneoformans/gatti Not Reported Not Detected (NotDetected); Cparapsilosis Not Reported Not Detected (NotDetected); E cloacae compx Not Reported Not Detected (NotDetected); Efaecalis Not Reported Not Detected (NotDetected); Efaecium Not Reported Not Detected (NotDetected); Enterobacterales Not Reported DETECTED (NotDetected); Escherichia coli Not Reported Not Detected (NotDetected); H influenzae Not Reported Not Detected (NotDetected); IMP Resistant Gene Not Detected (NotDetected); K aerogenes Not Reported Not Detected (NotDetected); KPC Resistant Gene Not Detected (NotDetected); Koxytoca Not Reported Not Detected (NotDetected); Kpneumoniae grp Not Reported Not Detected (NotDetected); Lmonocyt Not Reported Not Detected (NotDetected); N meningitidis Not Reported Not Detected (NotDetected); NDM Resistant Gene Not Detected (NotDetected); OXA 48 Like Resistant Gene Not Detected (NotDetected); P aeruginosa Not Reported Not Detected (NotDetected); Proteus species DETECTED (NotDetected); Salmonella spp Not Reported Not Detected (NotDetected); Staph lugdunensis Not Reported Not Detected (NotDetected); Staph spp. Not Reported DETECTED (NotDetected); Staphaureus Not Reported DETECTED (NotDetected); Staphepi Not Reported Not Detected (NotDetected); Staphylococcus spp. DETECTED (NotDetected); Stenmaltophilia Not Reported Not Detected (NotDetected); Strep agal(GrpB) Not Reported Not Detected (NotDetected); Strep pneum Not Reported Not Detected (NotDetected); Strep pyog (GrpA) Not Reported Not Detected (NotDetected); Strep spp Not Reported Not Detected (NotDetected); VIM Resistant Gene Not Detected (NotDetected)
[2024-03-11 16:29] LABS: Enterobacterales DETECTED (NotDetected); Proteus spp Not Reported DETECTED (NotDetected); mecAC+MREJ Resistant Gene MRSA DETECTED (NotDetected)
--- NOTE | 2024-03-11 16:31 | XCELERA ---
[id number] \\[id number]
[2024-03-11] MEDS ORDERED: DAPTOmycin 325 MG in SYRINGE 0 ML IV SCH (23:30)
--- NOTE | 2024-03-12 07:32 | Electrocardiogram Report ---
Test Reason : Blood Pressure : / mmHG Vent. Rate : 110 BPM Atrial Rate : 110 BPM P-R Int : 122 ms QRS Dur : 072 ms QT Int : 324 ms P-R-T Axes : 045 -18 069 degrees QTc Int : 438 ms Sinus tachycardia Nonspecific ST and T wave abnormality Abnormal ECG When compared with ECG of 13-FEB-2024 16:30, No significant change was found Confirmed by Emir Garcia ([id number]) on 03/12/2024 7:31:34 AM Referred By: REFERRED SELF Confirmed By:Emir Garcia
== END 2024-03-11 14:25 | disposition short-term general hospital (02) | DRG 871 ==
LOC: ED 21:42 → 1E 03-11 05:33
DX: E02 Subclinical iodine-deficiency hypothyroidism; L89.159 Pressure ulcer of sacral region, unspecified stage; Z87.891 Personal history of nicotine dependence; N39.0 Urinary tract infection, site not specified; G82.20 Paraplegia, unspecified; Z88.0 Allergy status to penicillin; Z93.51 Cutaneous-vesicostomy status; E83.51 Hypocalcemia; Z93.3 Colostomy status; N31.9 Neuromuscular dysfunction of bladder, unspecified; Z91.199 Patient's noncompliance with other medical treatment and regimen due to unspecified reason; Z88.1 Allergy status to other antibiotic agents; E83.42 Hypomagnesemia; Z99.3 Dependence on wheelchair; Z91.041 Radiographic dye allergy status; L89.894 Pressure ulcer of other site, stage 4; M00.851 Arthritis due to other bacteria, right hip; A41.9 Sepsis, unspecified organism; R65.21 Severe sepsis with septic shock; E87.6 Hypokalemia; Z88.6 Allergy status to analgesic agent; I50.32 Chronic diastolic (congestive) heart failure; Z86.14 Personal history of Methicillin resistant Staphylococcus aureus infection; Q05.9 Spina bifida, unspecified; D64.9 Anemia, unspecified; Z93.6 Other artificial openings of urinary tract status